=== PATIENT | male | born 1940 | race Caucasian/White ===

== ENCOUNTER → 2019-05-17 09:19 | Outpatient (BNVA) | payer MEDICARE, SELFPAY | PROVIDERS: Family Provider Internal Medicine; PCP Internal Medicine; Visit Provider Internal Medicine Cardiovascular Disease | DX: E78.5 Hyperlipidemia, unspecified (principal); I25.119 Atherosclerotic heart disease of native coronary artery with unspecified angina pectoris; I25.5 Ischemic cardiomyopathy; I34.0 Nonrheumatic mitral (valve) insufficiency | CPT/HCPCS: 80061 ==

== ENCOUNTER → 2019-11-14 08:17 | Outpatient (BNVA) | payer MEDICARE, SELFPAY | PROVIDERS: Family Provider Internal Medicine; PCP Internal Medicine; Visit Provider Internal Medicine Cardiovascular Disease | DX: E78.5 Hyperlipidemia, unspecified (principal); I25.5 Ischemic cardiomyopathy; R06.02 Shortness of breath | CPT/HCPCS: 80048; 80061 ==

== ENCOUNTER 2020-01-04 07:56 | Outpatient (CLI) | payer MEDICARE, SELFPAY ==
--- NOTE | 2020-01-04 08:15 | CT_ITS ---
WS: [id number] CT scan of the head, 01/04/2020 Clinical Data: G44.309 - Post-traumatic headache, unspecified, not intractable Comparison: CT head, 11/19/2013. DLP: 925.[address] scans at [facility] use at least one of these dose optimization techniques: automat ed exposure control; mA and/or kV adjustment per patient size (includes targeted exams where dose is matched to clinical indication); or iterative reconstruction. Findings: The ventricular system is mildly dilated without shift. No recent infarct or hemorrhage is seen. Ther e are no abnormal intracerebral masses. The cerebellum and brainstem are not remarkable. Bony windows of the skull and skull base show no fractures or erosions. The mastoid air cells, data analysis intern al auditory canals, sella turcica, intraorbital contents, and paranasal sinuses are unremarkable. CT/CT head wo con* [id number] Impression: Mild cerebral atrophy.
== END 2020-01-04 07:57 | disposition home or self-care (01) ==
LOC: RADWPI 08:00
PROVIDERS: PCP Internal Medicine; Visit Provider Internal Medicine
DX: G44.309 Post-traumatic headache, unspecified, not intractable (principal); G31.9 Degenerative disease of nervous system, unspecified
CPT/HCPCS: 70450

== ENCOUNTER 2020-02-29 14:41 | Inpatient (IN) | payer MEDICARE, SELFPAY ==
[2020-02-29] VITALS (16 sets, daily range): BP systolic 109–144; BP diastolic 74–99; PULSE 63–130; RESP 16–24; TEMP 36.2; O2SAT 93–97; BMI 25.5
--- NOTE | 2020-02-29 14:46 | XR_ITS ---
WS: [id number] Portable AP upright chest, 02/29/2020 Clinical Data: dyspnea Comparison: PA and lateral chest, 12/22/2016. Findings: There is a small left pleural effusion with minimal atelectasis and/or pneumonia over the s urface of the left diaphragm. Right lung is clear. The heart is enlarged. The pulmonary vascularity i s mildly prominent. The aortic arch and descending aorta show calcification and tortuosity. No pneumo thorax is present. There is a left shoulder prosthesis in position. There is osteoarthritic change of the right shoulder. XR/XR chest 1V portable [id number] Impression: 1. Cardiomegaly and mild pulmonary vascular congestion. 2. Small left pleural effusion with minimal atelectasis and/or pneumonia over t he surface of the left diaphragm.
--- NOTE | 2020-02-29 14:47 | ECG_ITS ---
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 Measurements Intervals [place] Rate: 104 P: [place]: QRS: -65 QRSD: 105 T: 92 QT: 385 QTc: 508 Interpretive Statements ATRIAL FIBRILLATION WITH RAPID VENTRICULAR RESPONSE WITH ABERRANT CONDUCTION OR VENTRICULAR PREMATURE COMPLEXES ANTERIOR MYOCARDIAL INFARCTION , OF INDETERMINATE AGE [40+ ms Q WAVE AND/OR ST/T ABNORMALITY IN V3/V4] INFERIOR MYOCARDIAL INFARCTION , PROBABLY OLD [40+ ms Q WAVE AND/OR ST/T ABNORMALITY IN II/aVF] Diffuse nonspecific T wave changes Compared to ECG 08/19/2015 23:09:34 Aberrant conduction of supraventricular beat(s) now present.Ventricular premature complex(es) now present.Sinus bradycardia no longer present.Left anterior fascicular block no longer present.Myocardial infarct finding still present Electronically Signed On 02-29-2020 20:14:18 SUGAR CANE PLANTING EQUIPMENT OPERATOR by Red Sherman M.D. [id number] f
[2020-02-29 15:06] LABS: Basophils # 0.1 10^3/uL (0.0-0.1); Basophils % 0.6 %; Eosinophils # 0.1 10^3/uL (0.0-0.8); Eosinophils % 1.6 %; Hematocrit 46.8 % (42.0-52.0); Lymphocytes % 23.6 %; Mean Corpuscular HGB Conc 32.1 g/dL (30.0-36.0); Mean Corpuscular Hemoglobin 29.4 pg (28.0-34.0); Mean Corpuscular Volume 91.8 fL (80-94); Mean Platelet Volume 10.8 fL (7.4-10.4); Monocytes # 0.6 10^3/uL (0.2-0.9); Monocytes % 6.5 %; Neutrophils # 5.81 10^3/uL (1.8-7.7); Neutrophils % 67.4 %; Nucleated Red Blood Cells % 0 %; Platelet Count 235 10^3/cmm (130-400); Red Cell Distribution Width 13.8 % (12.1-15.1); White Blood Count 8.6 10^3/uL (4.0-10.0)
--- NOTE | 2020-02-29 15:14 | W.ED.SOB ---
HPI - SOB/Dyspnea General: Chief Complaint: Shortness of Breath/Dyspnea Stated Complaint: dyspnea Time Seen by Provider: 02/29/20 14:43 History of Present Illness: HPI Narrative: 79-year-old male with a history of cardiomyopathy and systolic heart failure brought over to the emergency department by his primary care physician over concerns of shortness of breath and a rapid irregular heart rate. Patient was having significant dyspnea on exertion and overall not doing well. The patient has advanced heart failure. He denies any chest pain but does admit to some shortness of breath. There is no prior history of atrial fibrillation. MD elicited complaint: shortness of breath Pertinent past history: congestive heart failure Onset (ago): day(s) Context: occurred during exertion Timing: constant and progressively worsening Severity: moderate Exacerbating factors: exertion and movement Relieving factors: nothing Associated symptoms: Reports lightheadedness; Deny abdominal pain, chest congestion, chest pain, diaphoresis, dizziness, fever(s), nausea or vomiting Treatment prior to arrival: none Review of Systems General: Reports: 10 or more systems reviewed and unremarkable except in HPI and below Const: Denies: fever(s), chills or diaphoresis ENMT: Denies: throat pain Card: Reports: lightheadedness; Denies: chest pain Resp: Reports: dyspnea; Denies: productive cough, non-productive cough or chest congestion GI: Denies: abdominal pain, nausea or vomiting Skin/Breast: Denies: rash Neuro: Denies: headache(s) or dizziness [facility] ED PFSH: Medical History (Updated 02/29/20 @ 17:48 by Jarvis Merritt DO) 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 Benign essential hypertension with target blood pressure below 140/90 Dyslipidemia (high LDL; low HDL) Essential (primary) hypertension GERD (gastroesophageal reflux disease) Gout Hiatal hernia Hx of angiography Ischemic cardiomyopathy Ischemic cardiomyopathy Mitral valve regurgitation Surgical History History of appendectomy History of carpal tunnel release History of hemorrhoidectomy History of inguinal hernia repair History of left hip replacement History of left shoulder replacement History of prostatectomy S/P PTCA (percutaneous transluminal coronary angioplasty) Family History Other Diabetes Heart disease Social History Smoking and tobacco status: former smoker Alcohol intake: never History of recent travel: No Physical Exam Const: COMMON NORMALS: no acute distress, average body habitus, patient oriented x3, no limitations, healthy appearing, alert and well nourished HENMT: COMMON NORMALS: normocephalic HEAD & SCALP: normocephalic Eye: COMMON NORMALS: Equal, round and reactive pupils present, EOMs intact bilaterally and conjunctivae normal CONJUNCTIVA: Yes conjunctivae normal PUPIL: Yes Equal, round and reactive pupils present Neck/C-Spine: COMMON NORMALS: full ROM, no lymphadenopathy, supple, no meningeal signs, no JVD, Thyroid normal and No carotid bruits THYROID: Thyroid normal Resp: COMMON NORMALS: normal respiratory effort, No retractions, No use of accessory muscles, clear to auscultation bilaterally and percussion normal AUSCULTATION: clear to auscultation bilaterally PERCUSSION: percussion normal Cardio: COMMON NORMALS: no JVD; negative for regular rate and negative for regular rhythm RATE: abnormal rate and tachycardic RHYTHM: abnormal rhythm and abnormal rhythm GI: COMMON NORMALS: Normal to inspection, nondistended, normoactive bowel sounds present, Soft to palpation, non-tender, No hepatosplenomegaly present, no masses and no bruits PALPATION: Yes Soft to palpation and Yes No hepatosplenomegaly present : COMMON NORMALS: Yes no CVA tenderness BLADDER/KIDNEY EXAM: Yes no CVA tenderness Back/Pelvis: COMMON NORMALS: no CVA tenderness Extremity: COMMON NORMALS: normal to inspection, full ROM, capillary refill normal, no joint enlargement, no clubbing, cyanosis or edema, no calf tenderness and no pedal edema Neuro: COMMON NORMALS: patient oriented x3 SENSORIUM/ORIENTATION: Yes alert MENINGEAL SIGNS: Yes no meningeal signs Skin: COMMON NORMALS: no rashes or lesions noted, no wounds, turgor normal, no jaundice, no petechiae and no mottling GENERAL SKIN EXAM: no rashes or lesions noted and turgor normal Course ED course: 79-year-old male with history of heart failure presenting with new onset atrial fibrillation and a markedly elevated BNP and mild elevation of troponin. The patient was given some Lasix and now is breathing better his heart rates has come down and he is doing better but will need to be admitted for further work up and evaluation. Will discuss with hospitalist regarding admission. Dr. Lin accepts patient - cardiac step down bed. Vital Signs: Vital signs: Vital Signs Pulse Rate 91 02/29/20 16:05 Respiratory Rate 20 H 02/29/20 16:05 Blood Pressure 114/82 02/29/20 16:05 Pulse Oximetry 95 02/29/20 16:05 MDM - SOB/Dyspnea MDM Narrative: Medical decision making narrative: 79-year-old male with systolic heart failure and with a rapid irregular heartbeat. Suspect atrial fibrillation with rapid ventricular response will evaluate for acute coronary syndrome, congestive heart failure among others. Routine labs will be obtained I discussed the case with his primary care physician. EKG confirms atrial fibrillation with rapid ventricular response. Nonspecific ST/T wave changes noted with ventricular rate >100. Patient's chest x-ray has changes of congestive heart failure. He was given a dose of Lasix and felt much better. Patient will be admitted for work up. Differential Diagnosis: Shortness of Breath Differential Diagnosis: Likely acute exacerbation of chronic obstructive airways disease, congestive heart failure, community acquired pneumonia, asthma with exacerbation and pulmonary embolism Lab Data: Labs: Lab Results 02/29/20 02/29/20 02/29/20 Range/Units 14:30 14:30 14:30 WBC 8.6 (4.0-10.0) 10^3/ uL RBC 5.10 (4.1-5.3) 10^6/u L Hgb 15.0 (11.7-16.6) g/dL Hct 46.8 (42.0-52.0) % MCV 91.8 (80-94) fL MCH 29.4 (28.0-34.0) pg MCHC 32.1 (30.0-36.0) g/dL RDW 13.8 (12.1-15.1) % Plt Count 235 (130-400) 10^3/c mm MPV 10.8 H (7.4-10.4) fL Neut % (Auto) 67.4 % Lymph % (Auto) 23.6 % Butler % (Auto) 6.5 % Eos % (Auto) 1.6 % Baso % (Auto) 0.6 % Neut # (Auto) 5.81 (1.8-7.7) 10^3/u L Lymph # (Auto) 2.0 (0.8-4.8) 10^3/u L Butler # (Auto) 0.6 (0.2-0.9) 10^3/u L Eos # (Auto) 0.1 (0.0-0.8) 10^3/u L Baso # (Auto) 0.1 (0.0-0.1) 10^3/u L Nucleated RBC % (a uto) 0 % Nucleated RBCs # 0.0 /100WBC Sodium 139 (136-145) mmol/L Potassium 4.1 (3.5-5.1) mmol/L Chloride 103 (98-107) mmol/L Carbon Dioxide 27 (22-29) mmol/L Anion Gap 13.1 (5-19) BUN 16 (8-23) mg/dL Creatinine 1.2 (0.7-1.2) mg/dL GFR Calculation Not Reportable Glucose 138 H (65-115) mg/dL Calculated Osmolal ity 291 (285-295) mOsm/k g Calcium 9.7 (8.5-10.5) mg/dL Magnesium 2.4 H (1.7-2.3) mg/dL Total Bilirubin 0.7 (0.15-1.2) mg/dL AST 46 H (0-40) U/L ALT 43 H (0-41) U/L Alkaline Phosphata se 133 H (40-130) IU/L Troponin T Baselin e 39 H (0-15) ng/L Troponin T 120 Min [place] (0-15) ng/L Delta Troponin T (0-10) ABS# NT-Pro-B Natriuret Pep 8347 H (0-450) pg/mL Total Protein 6.8 (6.6-8.7) g/dL Albumin 4.2 (3.5-5.2) g/dL Globulin 2.6 (1.3-4.6) g/dL 02/29/20 Range/Units 16:30 WBC (4.0-10.0) 10^3/ uL RBC (4.1-5.3) 10^6/u L Hgb (11.7-16.6) g/dL Hct (42.0-52.0) % MCV (80-94) fL MCH (28.0-34.0) pg MCHC (30.0-36.0) g/dL RDW (12.1-15.1) % Plt Count (130-400) 10^3/c mm MPV (7.4-10.4) fL Neut % (Auto) % Lymph % (Auto) % Butler % (Auto) % Eos % (Auto) % Baso % (Auto) % Neut # (Auto) (1.8-7.7) 10^3/u L Lymph # (Auto) (0.8-4.8) 10^3/u L Butler # (Auto) (0.2-0.9) 10^3/u L Eos # (Auto) (0.0-0.8) 10^3/u L Baso # (Auto) (0.0-0.1) 10^3/u L Nucleated RBC % (a uto) % Nucleated RBCs # /100WBC Sodium (136-145) mmol/L Potassium (3.5-5.1) mmol/L Chloride (98-107) mmol/L Carbon Dioxide (22-29) mmol/L Anion Gap (5-19) BUN (8-23) mg/dL Creatinine (0.7-1.2) mg/dL GFR Calculation Glucose (65-115) mg/dL Calculated Osmolal ity (285-295) mOsm/k g Calcium (8.5-10.5) mg/dL Magnesium (1.7-2.3) mg/dL Total Bilirubin (0.15-1.2) mg/dL AST (0-40) U/L ALT (0-41) U/L Alkaline Phosphata se (40-130) IU/L Troponin T Baselin e (0-15) ng/L Troponin T 120 Min [place] 34.84 H (0-15) ng/L Delta Troponin T -4.16 L (0-10) ABS# NT-Pro-B Natriuret Pep (0-450) pg/mL Total Protein (6.6-8.7) g/dL Albumin (3.5-5.2) g/dL Globulin (1.3-4.6) g/dL Discharge Plan Discharge Patient Disposition: Admitted As Inpatient Clinical Impression: Ischemic cardiomyopathy, Elevated troponin, Atrial fibrillation Condition: Stable Coding Level of Care Code ED Balance Clerk for Chg Fwd Exam Comprehensive
[2020-02-29 15:28] LABS: Troponin(5th) Baseline 39 ng/L (0-15)
[2020-02-29 15:35] LABS: Alanine Aminotransferase 43 U/L (0-41); Albumin Level 4.2 g/dL (3.5-5.2); Alkaline Phosphatase 133 IU/L (40-130); Anion Gap 13.1 (5-19); Aspartate Amino Transferase 46 U/L (0-40); Blood Urea Nitrogen 16 mg/dL (8-23); Calcium 9.7 mg/dL (8.5-10.5); Carbon Dioxide 27 mmol/L (22-29); Chloride 103 mmol/L (98-107); Globulin 2.6 g/dL (1.3-4.6); Glucose 138 mg/dL (65-115); Magnesium 2.4 mg/dL (1.7-2.3); NT Pro B Type Natriuretic Pept 8347 pg/mL (0-450); Osmolality Calculated 291 mOsm/kg (285-295); Potassium 4.1 mmol/L (3.5-5.1); Sodium 139 mmol/L (136-145); Total Bilirubin 0.7 mg/dL (0.15-1.2); Total Protein 6.8 g/dL (6.6-8.7)
[2020-02-29] MEDS: FUROsemide 10 mg/mL SDV 4mL 40 MG IVP (17:08)
[2020-02-29] MEDS: enoxaparin 80 mg/0.8 mL Syringe SUBCUT (17:08)
[2020-02-29 17:11] LABS: Troponin 5 2HR 34.84 ng/L (0-15)
[2020-02-29 17:13] LABS: Troponin 5 2HR Delta -4.16 ABS# (0-10)
--- NOTE | 2020-02-29 18:01 | PM.HP ---
Providers/Chief Complaint Admitting Physician: Carmen Lin MD Primary Care Provider: Raymond Redyd MD Chief Complaint: dyspnea, palpitations History of Present Illness Stanislav Wu is a 79 year old male with PMHx noted below presents from PCP office where he had presented due to having noticed shortness of breath with exertions, intermittent palpitations, easy fatigability for the past several days. On evaluation at Dr. Reddy's office this afternoon he was noted to have an irregular heartbeat with elevated heart rate so was advised to seek medical attention in the ER. Dr. Reddy actually brought the patient physically to the ER. He denies having had any chest pain/discomfort, lower extremity swelling, cough, abdominal pain, nausea/vomiting, change in his urination or bowel habits, he is not oxygen dependent at baseline. Work-up so far indicates normal CBC, normal electrolytes and renal function, magnesium of 2.4, BNP elevation at 8347, elevated troponins but no significant delta so far. He does have noted atrial fibrillation on telemetry with heart rates ranging from 120s to 140s. He is not overtly distressed during my encounter in the ER, so far has received a therapeutic dose of Lovenox and 40 mg of IV Lasix. Chest x-ray shows some evidence of fluid overload with noted mild pulmonary vascular congestion and a small left pleural effusion. I have requested initiation of a Cardizem drip due to continued RVR. He will require further management of what appears to be new onset atrial fibrillation with RVR and acute CHF exacerbation. Review of Systems Const: Reports: fatigue; Denies: fever(s), chills or change in appetite Eyes: Denies: change in vision ENMT: Denies: odynophagia Card: Reports: palpitations and irregular heart rhythm; Denies: chest pain, swelling of feet/ankles, lightheadedness, syncope or pre-syncope Resp: Reports: dyspnea; Denies: productive cough or non-productive cough GI: Denies: abdominal pain, nausea, vomiting, hematemesis or hematochezia : Denies: hematuria Musc: Denies: back pain Skin/Breast: Denies: rash Neuro: Denies: numbness in extremities or weakness in extremities Psych: Denies: anxiety Medications/Allergies Home Medications Medication Instructions Recorded Confirmed Last Taken Type nitroglycerin 0.4 mg sublingual 0.4 mg SUBLINGUAL Q5M PRN 03/24/19 02/29/20 Unknown History tablet hydrocodone 5 mg-acetaminophen 325 1 tab PO Q8H PRN 30 Days #30 tab 01/23/20 02/29/20 Unknown Rx mg tablet fentanyl 50 mcg/hr transdermal 1 patch TOPICAL Q72H 30 Days #10 02/20/20 02/29/20 02/29/20 Rx patch each Miralax 17 gm PO DAILY@59902/29/20 02/29/20 02/29/20 History allopurinol 300 mg PO DAILY@59902/29/20 02/29/20 02/29/20 History atorvastatin 80 mg PO DAILY@59902/29/20 02/29/20 02/29/20 History clopidogrel 75 mg PO DAILY@59902/29/20 02/29/20 02/29/20 History ezetimibe 10 mg PO DAILY@0602/29/20 02/29/20 02/29/20 History furosemide 40 mg PO BID@0600,1700 02/29/20 02/29/20 02/29/20 History isosorbide mononitrate 60 mg PO DAILY@0602/29/20 02/29/20 02/29/20 History lisinopril 40 mg PO DAILY@0602/29/20 02/29/20 02/29/20 History meloxicam 15 mg PO DAILY@0602/29/20 02/29/20 02/29/20 History metoprolol tartrate 50 mg PO BID@0600,1700 02/29/20 02/29/20 02/29/20 History nifedipine 30 mg PO DAILY@0602/29/20 02/29/20 02/29/20 History omeprazole 20 mg PO DAILY@0600 02/29/20 02/29/20 02/29/20 History potassium chloride 20 meq PO BID@0600,1700 02/29/20 02/29/20 02/29/20 History Allergies Allergy/AdvReac Type Severity Reaction Status Date / Time No Known Allergies Allergy Verified 02/29/20 13:29 PFSH Acute PFSH: Medical History (Updated 02/29/20 @ 18:52 by Carmen Lin MD) 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 Benign essential hypertension with target blood pressure below 140/90 Dyslipidemia (high LDL; low HDL) Essential (primary) hypertension GERD (gastroesophageal reflux disease) Gout Hiatal hernia Hx of angiography Ischemic cardiomyopathy Mitral valve regurgitation Osteoarthritis Surgical History History of appendectomy History of carpal tunnel release History of hemorrhoidectomy History of inguinal hernia repair History of left hip replacement History of left shoulder replacement History of prostatectomy S/P PTCA (percutaneous transluminal coronary angioplasty) Family History Other Diabetes Heart disease Social History Smoking and tobacco status: former smoker Alcohol intake: never History of recent travel: No Vitals/I&O/Wt Last Vital Signs Pulse 91 02/29/20 16:05 Resp 20 H 02/29/20 16:05 BP 114/82 02/29/20 16:05 Pulse Ox 95 02/29/20 16:05 Weight last 48 hrs Weight 78.471 kg Physical Exam Const: COMMON NORMALS: no acute distress, patient oriented x3 and alert GENERAL APPEARANCE: cooperative and comfortable ORIENTATION/CONSCIOUSNESS: Yes awake OTHER: -looks younger than stated age HENMT: COMMON NORMALS: normocephalic, atraumatic and moist oral mucous membranes HEAD & SCALP: normocephalic and atraumatic GENERAL EAR: hearing grossly impaired Eye: COMMON NORMALS: Equal, round and reactive pupils present, EOMs intact bilaterally and conjunctivae normal CONJUNCTIVA: Yes conjunctivae normal PUPIL: Yes Equal, round and reactive pupils present Neck/C-Spine: COMMON NORMALS: full ROM GENERAL: Yes normal visual inspection and Yes trachea midline Resp: COMMON NORMALS: normal respiratory effort, No retractions, No use of accessory muscles and clear to auscultation bilaterally EFFORT & INSPECTION: Yes able to speak in complete sentences, Yes symmetric chest movement and No tachypneic AUSCULTATION: clear to auscultation bilaterally OTHER: -on RA Cardio: COMMON NORMALS: S1 normal heart sound present, S2 normal heart sound present and No murmurs present (Cardio) RATE: tachycardic RHYTHM: abnormal rhythm irregularly irregular HEART SOUNDS: S1 normal heart sound present and S2 normal heart sound present GI: COMMON NORMALS: Normal to inspection, nondistended, normoactive bowel sounds present, Soft to palpation and non-tender PALPATION: Yes Soft to palpation Extremity: COMMON NORMALS: normal to inspection, full ROM and no clubbing, cyanosis or edema; negative for no pedal edema Neuro: COMMON NORMALS: patient oriented x3, moves all extremities, no focal motor deficits and no sensory deficits noted Psych: COMMON NORMALS: mental status grossly normal, Normal thought process present, cooperative, normal affect and speech normal SPEECH: Yes normal speech THOUGHT PROCESS: Normal thought process present Skin: COMMON NORMALS: no rashes or lesions noted, no jaundice, no petechiae and no mottling GENERAL SKIN EXAM: no rashes or lesions noted Data : 02/29/20 14:30 02/29/20 14:30 A&P Assessment and plan (1) Atrial fibrillation: -appears to be new onset, likely triggered by acute CHF exacerbation -telemetry monitoring -started on Cardizem drip in ED; titrate as needed -monitor vital signs -check TSH, K-4.1 -order repeat Echo, last one was in 2018 showing EF=45%, G3DD, moderate MR, trace to mild AR -[id number] score-5; will need computer terminal operator anticoagulation, for now will cover with therapeutic lovenox Status: Acute Qualifiers: Atrial fibrillation type: persistent (not longstanding) Qualified Code(s): I48.19 - Other persistent atrial fibrillation (2) Acute exacerbation of CHF (congestive heart failure): -IV diuresis with lasix -daily weights, monitor Is & Os -repeat Echo, per cardiac cath, EF=35% (06/2018) -noted elevated BNP (8347), evidence of fluid overload on imaging Status: Acute Qualifiers: Heart failure type: combined systolic and diastolic Qualified Code(s): I50.43 - Acute on chronic combined systolic (congestive) and diastolic (congestive) heart failure (3) Elevated troponin: -likely demand ischemia from acute CHF exacerbation and new onset atrial fibrillation with RVR -has known hx of CAD with prior stenting (x 13); had multivessel angioplasty, subtotal occlusion of the stented segment of proximal intermedius artery, moderate severe diffuse disease of distal LAD, moderate to severe in-stent narrowing of the proximal RCA -resume statin, Plavix, BB, ACEi Status: Acute (4) Essential (primary) hypertension: -monitor vital signs -resume oral antihypertensives Status: Chronic (5) GERD (gastroesophageal reflux disease): -resume PPI Status: Chronic Qualifiers: Esophagitis presence: without esophagitis Qualified Code(s): K21.9 - Gastro-esophageal reflux disease without esophagitis Additional A&P Information -Chronic pain, OA: resume pain meds -Gout; resume allopurinol -Dyslipidemia; resume statin -cardiac diet as tolerated -GI ppx with PPI -DVT ppx not needed as on therapeutic lovenox -Dispo: home -Code status: FULL code -admit to CSU Attestations Medical Necessity Statement*: Stanislav Gastelum Bryce's hospital stay will require greater than 2 midnights for management of acute CHF exacerbation and new onset atrial fibrillation with RVR. Time Spent in Patient Care: Greater than 35 minutes (>than 50% of time spent in counselling and/or direct pt care on unit). Coding Level of Care Code Acute Data Processing Operator for [facility] Fwd Exam Comprehensive Diagnoses Atrial fibrillation I48.19 Atrial fibrillation type: persistent (not longstanding) Acute exacerbation of CHF (congestive heart failure) I50.43 Heart failure type: combined systolic and diastolic Elevated troponin R77.8 Essential (primary) hypertension I10 GERD (gastroesophageal reflux disease) K21.9 Esophagitis presence: without esophagitis
--- NOTE | 2020-02-29 20:47 | ECG_ITS ---
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 Measurements Intervals [place] Rate: 85 P: [place]: QRS: -58 QRSD: 98 T: 93 QT: 390 QTc: 464 Interpretive Statements ATRIAL FIBRILLATION WITH ABERRANT CONDUCTION OR VENTRICULAR PREMATURE COMPLEXES LEFT ANTERIOR FASCICULAR BLOCK [QRS AXIS <= -45, QR IN I, RS IN II] ANTERIOR MYOCARDIAL INFARCTION , OF INDETERMINATE AGE [40+ ms Q WAVE AND/OR ST/T ABNORMALITY IN V3/V4] INFERIOR MYOCARDIAL INFARCTION , PROBABLY OLD [40+ ms Q WAVE AND/OR ST/T ABNORMALITY IN II/aVF] Compared to ECG 02/29/2020 14:45:20 Left anterior fascicular block now present T-wave abnormality no longer present Myocardial infarct finding still present Electronically Signed On 03-01-2020 21:36:36 COST ACCOUNTING CLERK by Florence Suarez M.D. [id number]
[2020-02-29 21:27] LABS: Troponin 5 6HR 37.76 ng/L (0-15)
--- NOTE | 2020-02-29 21:29 | PC.NURSE ---
EKG done at 2126 and shown to ER doctor
[2020-02-29 21:35] LABS: Troponin 5 6HR Delta -1.24 ng/L (0-12)
[2020-03-01] VITALS (66 sets, daily range): BP systolic 99–134; BP diastolic 50–94; PULSE 70–993; RESP 7–31; TEMP 36.2–36.6; O2SAT 87–97
[2020-03-01] MEDS: fentaNYL 50 mcg Patch 1 PATCH TRANSDERMA (00:32)
[2020-03-01] MEDS: atorvastatin 40 mg Tablet 80 MG PO ×2 (00:32→20:34)
--- NOTE | 2020-03-01 00:59 | PC.NURSE ---
NURSE NOTE: MEDICATION RESCHEDULED: PT HAD LOVENOX SCHEDULED TO BE GIVEN WHEN ARRIVED TO UNIT AT 2320 LAST EVENING. HAD JUST HAD LOVENOX 80MG AT 1620. NOTIFIED DR. ROPER TO CONFIRM HE WANTED MEDICATION GIVEN. GAVE ORDER TO RESCHEDULE LOVENOX FOR 0500 AND 1700. MEDICATION SCHEDULED ORDERED.
--- NOTE | 2020-03-01 01:02 | PC.NURSE ---
NURSE NOTE: ADMISSION: PT ARRIVED TO UNIT AT 2320 LAST NIGHT. ALERT AND ORIENTED X4, MOVES ALL EXTREMITIES AND FOLLOWS COMMANDS. UP WITH SBA X1-GAIT STEADY WITH ASSIST. ALL VS AND ASSESSMENTS CHARTED. CARDIZEM GTT RUNNING AT 7.5MG ON ARRIVAL. HEART RATE IRREGULAR /AFIB AT 74 BPM. DENIES CHEST PAIN OR DISCOMFORT. UP TO BR WITH ASSIST. CURRENTLY RESTING WITH EYES CLOSED, RESP EVEN AND NON LABORED. 02 PER RA. WILL CONTINUE TO MONITOR.
[2020-03-01 03:51] LABS: Basophils # 0.1 10^3/uL (0.0-0.1); Basophils % 0.7 %; Eosinophils # 0.2 10^3/uL (0.0-0.8); Eosinophils % 2.4 %; Hematocrit 42.7 % (42.0-52.0); Hemoglobin 13.6 g/dL (11.7-16.6); Lymphocytes # 1.8 10^3/uL (0.8-4.8); Lymphocytes % 21.7 %; Mean Corpuscular HGB Conc 31.9 g/dL (30.0-36.0); Mean Corpuscular Hemoglobin 29.5 pg (28.0-34.0); Mean Corpuscular Volume 92.6 fL (80-94); Monocytes # 0.6 10^3/uL (0.2-0.9); Monocytes % 7.4 %; Neutrophils # 5.52 10^3/uL (1.8-7.7); Neutrophils % 67.6 %; Nucleated Red Blood Cells % 0 %; Platelet Count 188 10^3/cmm (130-400); Red Blood Count 4.61 10^6/uL (4.1-5.3); Red Cell Distribution Width 13.8 % (12.1-15.1); White Blood Count 8.2 10^3/uL (4.0-10.0)
[2020-03-01 04:38] LABS: Alanine Aminotransferase 33 U/L (0-41); Albumin Level 3.6 g/dL (3.5-5.2); Alkaline Phosphatase 116 IU/L (40-130); Anion Gap 9.6 (5-19); Aspartate Amino Transferase 34 U/L (0-40); Blood Urea Nitrogen 15 mg/dL (8-23); Calcium 9.1 mg/dL (8.5-10.5); Carbon Dioxide 30 mmol/L (22-29); Chloride 104 mmol/L (98-107); Globulin 2.7 g/dL (1.3-4.6); Glucose 94 mg/dL (65-115); Magnesium 2.2 mg/dL (1.7-2.3); Osmolality Calculated 291 mOsm/kg (285-295); Potassium 3.6 mmol/L (3.5-5.1); Sodium 140 mmol/L (136-145); Thyroid Stimulating Hormone 3.13 uIU/mL (0.27-4.20); Total Bilirubin 0.8 mg/dL (0.15-1.2); Total Protein 6.3 g/dL (6.6-8.7)
--- NOTE | 2020-03-01 06:55 | PC.NURSE ---
NURSE NOTE: LATE MEDICATIONS: WENT TO GIVE MORNING MEDICATIONS. PATIENT NOT IN PYXIS. CALLED ADMINISTRATION MULTIPLE TIMES/NO ANSWER. PHARMACY CALLED PER CHARGE NURSE ; THEY CONTACTED ED ADMISSIONS/ PROBLEM NOT RESOLVED OF THIS TIME. REPORT GIVEN TO DAVEY GARCIA
--- NOTE | 2020-03-01 07:00 | USCV_ITS ---
Stanislav Wu Age: 79 Gender: M : 1940 Exam Date: 03/01/2020 06:19 Ordering Phys: Carmen Lin MD Technologist: Ty Fernandez Exam Location: [facility] [place] Indication: NEW ONSET AFIB BP: 120 / 93 HR: 82 Rhythm: Atrial fibrillation Technical Quality: Good MEASUREMENTS (Male / Female) Normal Values 2D ECHO LV Diastolic Diameter PLAX 5.4 cm 4.2 - 5.9 / 3.9 - 5.3 cm LV Systolic Diameter PLAX 4.5 cm IVS Diastolic Thickness 1.1 cm 0.6 - 1.0 / 0.6 - 0.9 cm IVS Systolic Thickness 1.6 cm LVPW Diastolic Thickness 1.1 cm 0.6 - 1.0 / 0.6 - 0.9 cm LVPW Systolic Thickness 1.5 cm LVOT Diameter 2.0 cm LV Ejection Fraction 2D Teich 36.8 % LV Ejection Fraction MOD 2C 15.6 % LV Ejection Fraction 2C AL 19.2 % LA Diameter 5.3 cm LA Width 5.9 cm LA Height 5.7 cm RA Width 5.2 cm RA Height 5.5 cm Aorta at Sinotubular Diameter 3.5 cm M-MODE LV Diastolic Diameter MM 5.9 cm 4.2 - 5.9 / 3.9 - 5.3 cm LV Systolic Diameter MM 4.4 cm LV Ejection Fraction MM Teich 50.4 % IVS Diastolic Thickness MM 1.2 cm 0.6 - 1.0 / 0.6 - 0.9 cm IVS Systolic Thickness MM 1.7 cm LVPW Diastolic Thickness MM 1.5 cm 0.6 - 1.0 / 0.6 - 0.9 cm LVPW Systolic Thickness MM 1.9 cm Aortic Annulus Diameter 3.9 cm LA Ao Ratio MM 1.4 MV E Point Septal Separation 1.3 cm DOPPLER AV Peak Velocity 201.0 cm/s LVOT Peak Velocity 103.0 cm/s AV Area Cont Eq vti 1.4 cm squared AV Area Cont Eq pk 1.6 cm squared MV Area PHT 5.0 cm squared MV E' Velocity 56.0 cm/s Mitral E to MV E' Ratio 10.8 Mitral E to LV E' Lateral Ratio 10.8 Mitral E to LV E' Septal Ratio 10.8 TR Peak Velocity 330.0 cm/s TR Peak Gradient 43.6 mmHg TV Peak E Velocity 89.0 cm/s Right Atrial Pressure 3.0 mmHg Pulmonary Artery Systolic Pressu 46.6 mmHg PV Peak Velocity 60.0 cm/s RV Acceleration Time 0.1 s RV Ejection Time 0.3 s RV AcT/ET 0.2 FINDINGS Left Ventricle Mild dilation of left ventricle. LV systolic function is moderately reduced with EF of 35 to 40%. There is severe hypokinesis of anterior and apical peña. Diastolic function is indeterminate because of atrial fibrillation.. Right Ventricle The right ventricle is normal in size and function. Right Atrium Right atrium is dilated. Left Atrium Moderately dilated left atrium Mitral Valve Thickened aortic valve. There is mild to moderate mitral regurgitation. Aortic Valve Aortic valve is calcified. No evidence of aortic stenosis. There is mild aortic regurgitation. Tricuspid Valve Structurally normal tricuspid valve without significant stenosis. There is mild tricuspid regurgitation. RVSP is 45 to 50 mmHg. This is consistent with moderate pulmonary hypertension. Pulmonic Valve Structurally normal pulmonic valve without significant stenosis. There is mild pulmonic regurgitation. Pericardium Normal pericardium without effusion. Aorta Normal ascending aorta dimension. CONCLUSIONS Left ventricle is mildly dilated. LV systolic function is moderately reduced with EF of 35 to 40%. There is severe hypokinesis of anterior and apical peña. Diastolic function is indeterminate because of atrial fibrillation. There is mild to moderate mitral regurgitation. Mild aortic regurgitation is seen. Mild pulmonic regurgitation is present. RVSP is 45 to 50 mmHg consistent with moderate pulmonary hypertension. Compared to prior study from 06/30/2018, LV systolic function is now further decreased to 35 to 40%. Rene Hickey MD (Electronically Signed) Final Date: 02 March 2020 18:20 S
[2020-03-01] MEDS: clopidogrel 75 mg Tablet PO (07:02)
[2020-03-01] MEDS: potassium chloride ER 20 mEq Tablet PO ×2 (07:02→17:10)
[2020-03-01] MEDS: enoxaparin 80 mg/0.8 mL Syringe SUBCUT ×2 (07:02→17:11)
[2020-03-01] MEDS: pantoprazole DR 40 mg Tablet PO (07:02)
[2020-03-01] MEDS: metoprolol tartrate 50 mg Tablet PO ×2 (07:03→17:10)
[2020-03-01] MEDS: polyethylene glycol 3350 Pkt 17 gm PO (08:46)
[2020-03-01] MEDS: NIFEdipine ER (24 hr) 30 mg Tablet PO (08:46)
[2020-03-01] MEDS: allopurinol 300 mg Tablet PO (08:47)
[2020-03-01] MEDS: isosorbide mononitrate ER 60 mg Tablet PO (08:47)
[2020-03-01] MEDS: lisinopril 20 mg Tablet 40 MG PO (08:48)
[2020-03-01] MEDS: FUROsemide 10 mg/mL SDV 4mL 40 MG IVP ×2 (08:49→17:12)
--- NOTE | 2020-03-01 10:27 | PM.PN ---
Subjective Subjective: Interval history: Patient resting quietly in bed, no apparent distress, very pleasant, no complaints, no acute overnight events reported. On 5 mg/hr of cardizem, HR better controlled but rhythm remains irregular. Medications: Reviewed: Yes Medication Review Details: Active Medications Generic Name Dose Route Start Last Admin Trade Name Freq PRN Reason Stop Dose Admin Acetaminophen 650 mg 03/01/20 07:39 Acetaminophen 32 5 Mg Tablet PO Q6H PRN MILD PAIN Hydrocodone Bitart /Acetaminophen 1 tab 03/01/20 07:39 Hydrocodone-Acet aminophen 5-325 Mg Tablet PO Q8H PRN moderate to sever e pain Allopurinol 300 mg 03/01/20 09:00 03/01/20 08:47 Allopurinol 300 Mg Tablet PO 300 mg DAILY [facility] Administration Atorvastatin Calci um 80 mg 03/01/20 21:00 Atorvastatin 40 Mg Tablet PO BEDTIME TAYLOR Clopidogrel Bisulf ate 75 mg 03/02/20 06:00 Clopidogrel 75 M g Tablet PO DAILY@0600 T[facility] Diltiazem HCl 30 mg 03/01/20 10:30 Diltiazem 30 Mg Tablet PO Q6H TAYLOR Enoxaparin Sodium 80 mg 03/01/20 18:00 Enoxaparin 80 Mg /0.8 Ml Syringe SUBCUT Q12H TAYLOR Fentanyl 1 patch 02/29/20 23:43 03/01/20 00:32 Fentanyl 50 Mcg Patch TRANSDERMA 1 patch Q72H TAYLOR Administration Furosemide 40 mg 03/01/20 09:00 03/01/20 08:49 Furosemide 10 Mg /Ml Sdv 4ml IVP 40 mg BID TAYLOR Administration Diltiazem HCl 125 mg/ Sodium 125 mls @ 10 mls/ hr 02/29/20 18:00 03/01/20 08:59 Chloride IV 5 mg/hr .[id number] TAYLOR 5 mls/hr Infusion 10 MG/HR Isosorbide Mononit rate 60 mg 03/01/20 09:00 03/01/20 08:47 Isosorbide [place] itrate Er 60 Mg Ta blet PO 60 mg DAILY T[facility]LOR Administration Lisinopril 40 mg 03/01/20 09:00 03/01/20 08:48 Lisinopril 20 Mg Tablet PO 40 mg DAILY T[facility]LOR Administration Metoprolol Tartrat e 50 mg 03/01/20 17:00 Metoprolol Tartr ate 50 Mg Tablet PO BID@0600,1700 [facility] Nifedipine 30 mg 03/01/20 09:00 03/01/20 08:46 Nifedipine Er (2 4 Hr) 30 Mg Tablet PO 30 mg DAILY [facility] Administration Nitroglycerin 0.4 mg 03/01/20 07:39 Nitroglycerin 0. 4 Mg Sublingual Ta blet SUBLINGUAL Q5M PRN CHEST PAIN Ondansetron HCl 4 mg 03/01/20 07:40 Ondansetron 2 Mg /Ml Sdv 2 Ml IVP Q6H PRN NAUSEA AND VOMITI NG Pantoprazole Sodiu m 40 mg 03/02/20 06:[address] 40 Mg Tablet PO DAILY@0600 [facility] Polyethylene Glyco l 17 gm 03/01/20 09:00 03/01/20 08:46 Polyethylene Gly col 3350 Pkt 17 Gm PO 17 gm DAILY [facility] Administration Potassium Chloride 20 meq 03/01/20 17:00 Potassium Chlori de Er 20 Meq Table t PO BID@0600,1700 [facility] No Known Allergies Allergy (Verified 02/29/20 13:29) Vitals/I&O/Wt Last Vital Signs Temp 97.7 F 03/01/20 07:05 Pulse 85 03/01/20 07:26 Resp 18 03/01/20 07:05 BP 134/87 03/01/20 07:05 Pulse Ox 96 03/01/20 07:05 02/29/20 03/01/20 03/01/20 22:59 06:59 14:59 Intake Total 39.833 / 39.833 54.5 / 94.333 255.500 / 255.500 Output Total 300 / 300 300 / 300 Balance 39.833 / 39.833 -245.5 / -205.667 -44.500 / -44.500 Weight last 48 hrs Weight 70.579 kg Weight 78.471 kg Physical Exam Const: COMMON NORMALS: no acute distress, patient oriented x3 and alert GENERAL APPEARANCE: cooperative and comfortable ORIENTATION/CONSCIOUSNESS: Yes awake OTHER: -looks younger than stated age HENMT: COMMON NORMALS: normocephalic, atraumatic and moist oral mucous membranes HEAD & SCALP: normocephalic and atraumatic GENERAL EAR: hearing grossly impaired Eye: COMMON NORMALS: Equal, round and reactive pupils present, EOMs intact bilaterally and conjunctivae normal CONJUNCTIVA: Yes conjunctivae normal PUPIL: Yes Equal, round and reactive pupils present Neck/C-Spine: COMMON NORMALS: full ROM GENERAL: Yes normal visual inspection and Yes trachea midline Resp: COMMON NORMALS: normal respiratory effort, No retractions, No use of accessory muscles and clear to auscultation bilaterally EFFORT & INSPECTION: Yes able to speak in complete sentences, Yes symmetric chest movement and No tachypneic AUSCULTATION: clear to auscultation bilaterally OTHER: -on RA Cardio: COMMON NORMALS: regular rate, S1 normal heart sound present, S2 normal heart sound present and No murmurs present (Cardio) RATE: regular rate RHYTHM: abnormal rhythm irregularly irregular HEART SOUNDS: S1 normal heart sound present and S2 normal heart sound present OTHER: -on cardizem @ 5 mg/hr GI: COMMON NORMALS: Normal to inspection, nondistended, normoactive bowel sounds present, Soft to palpation and non-tender PALPATION: Yes Soft to palpation Extremity: COMMON NORMALS: normal to inspection, full ROM and no clubbing, cyanosis or edema; negative for no pedal edema Neuro: COMMON NORMALS: patient oriented x3, moves all extremities, no focal motor deficits and no sensory deficits noted SENSORIUM/ORIENTATION: Yes alert Psych: COMMON NORMALS: mental status grossly normal, Normal thought process present, cooperative, normal affect and speech normal SPEECH: Yes normal speech THOUGHT PROCESS: Normal thought process present Skin: COMMON NORMALS: no rashes or lesions noted, no jaundice, no petechiae and no mottling GENERAL SKIN EXAM: no rashes or lesions noted Data : 03/01/20 03:21 03/01/20 03:21 A&P Assessment and plan (1) Atrial fibrillation: -appears to be new onset, likely triggered by acute CHF exacerbation -telemetry monitoring -on Cardizem drip in ED; titrate as needed; start on oral cardizem -VSS; continue to monitor -TSH wnl, K-3.6 -order repeat Echo, last one was in 2019 showing EF=45%, G3DD, moderate MR, trace to mild AR -[id number] score-5; will need terminal gauger supervisor anticoagulation, for now will cover with therapeutic lovenox Status: Acute Qualifiers: Atrial fibrillation type: persistent (not longstanding) Qualified Code(s): I48.19 - Other persistent atrial fibrillation (2) Acute exacerbation of CHF (congestive heart failure): -IV diuresis with lasix -daily weights, monitor Is & Os -repeat Echo, per cardiac cath, EF=35% (06/2018) -noted elevated BNP (8347), evidence of fluid overload on imaging Status: Acute Qualifiers: Heart failure type: combined systolic and diastolic Qualified Code(s): I50.43 - Acute on chronic combined systolic (congestive) and diastolic (congestive) heart failure (3) Elevated troponin: -likely demand ischemia from acute CHF exacerbation and new onset atrial fibrillation with RVR -has known hx of CAD with prior stenting (x 13); had multivessel angioplasty, subtotal occlusion of the stented segment of proximal intermedius artery, moderate severe diffuse disease of distal LAD, moderate to severe in-stent narrowing of the proximal RCA -continue statin, Plavix, BB, ACEi Status: Acute (4) Essential (primary) hypertension: -continue to monitor vital signs -continue oral antihypertensives Status: Chronic (5) GERD (gastroesophageal reflux disease): -continue PPI Status: Chronic Qualifiers: Esophagitis presence: without esophagitis Qualified Code(s): K21.9 - Gastro-esophageal reflux disease without esophagitis Additional A&P Information -Chronic pain, OA: continue pain meds -Gout; continue allopurinol -Dyslipidemia; continue statin -cardiac diet as tolerated -GI ppx with PPI -DVT ppx not needed as on therapeutic lovenox -Dispo: home -Code status: FULL code Attestations Medical Necessity Statement*: Patient requires hospitalization for continued rate control, IV diuresis. Time Spent in Patient Care: 16 - 35 minutes (>than 50% of time spent in counselling and/or direct pt care on unit). Coding Level of Care Code Acute Corporation Officer for Chg Fwd Exam Comprehensive Diagnoses Atrial fibrillation I48.19 Atrial fibrillation type: persistent (not longstanding) Acute exacerbation of CHF (congestive heart failure) I50.43 Heart failure type: combined systolic and diastolic Elevated troponin R77.8 Essential (primary) hypertension I10 GERD (gastroesophageal reflux disease) K21.9 Esophagitis presence: without esophagitis
--- NOTE | 2020-03-01 11:05 | PC.CHAP ---
Pastoral Care Encounter/Spiritual Assessment Type of Contact [] Declined group leader wafer polishing visit [] Patient/Family/Request visit [] Outpatient visit [] Follow-up visit [] Physician referral [] Code/Alert [x] Routine visit [] Staff referral [] Actively dying [] Patient sleeping [] Family support [] [] Out of room [] Palliative care [] [x] Receiving care in room [] Pre-surgical visit [] Trauma [] Long length of stay [] ICU visit [] Other: Relational/Emotional Strength [x] Patient feels connected with others/family/visitors/staff [] Distress [] Loneliness/isolation [] Abandonment Spirituality of Patient [x] Person of Veronica [] Attends Advent of their Veronica [x] Believes in Prayer [] Reads Bible or Rastafari materials [] There are Spiritual issues to be addressed Beam Racker Interventions [x] Prayer [x] Active listening [x] Non-anxious presence [x] Spiritual/emotional support [] Crisis/trauma care [x] Spiritual counseling [] Bereavement support [] Provided bereavement packet [] Provided Bible/devotional materials [] Provided toy/stuffed animal, coloring book to patient or family member [] Provided Communion [] Anointing/[place] [] Salvation [x] Completed spiritual assessment [] Other: Impact on Illness or Injury [] Angry [] Fearful [x] Anxious [] Often cries [] Exhaustion [] Unable to work [] Unable to attend lutheran [] Unable to walk/stand [] Unable to read [] Unable to drive [] Unable to eat/drink [] Unable to sleep [] Unable to be with family [] Patient intubated [] Other: Summary he doesn't nknow about tests, he has not seen the dotor has a good attitude Time spent with patient 10 mins
[2020-03-01] MEDS: dilTIAZem 30 mg Tablet PO ×3 (11:13→22:39)
[2020-03-02] VITALS (10 sets, daily range): BP systolic 105–122; BP diastolic 70–95; PULSE 74–98; RESP 12–20; TEMP 36.3–36.9; O2SAT 92–95
[2020-03-02] MEDS: dilTIAZem 30 mg Tablet PO ×3 (04:51→16:26)
[2020-03-02] MEDS: pantoprazole DR 40 mg Tablet PO (05:54)
[2020-03-02] MEDS: enoxaparin 80 mg/0.8 mL Syringe SUBCUT (05:54)
[2020-03-02] MEDS: metoprolol tartrate 50 mg Tablet PO ×2 (05:54→16:26)
[2020-03-02] MEDS: clopidogrel 75 mg Tablet PO (05:54)
[2020-03-02] MEDS: potassium chloride ER 20 mEq Tablet PO ×2 (07:41→16:26)
--- NOTE | 2020-03-02 08:21 | PM.PN ---
Subjective Subjective: Interval history: Had 375 mL urine output overnight, Echo report pending, hemodynamically stable, HR controlled, weaned off cardizem drip. No complaints, resting quietly in bed. Medications: Reviewed: Yes Medication Review Details: Active Medications Generic Name Dose Route Start Last Admin Trade Name Freq PRN Reason Stop Dose Admin Acetaminophen 650 mg 03/01/20 07:39 Acetaminophen 32 5 Mg Tablet PO Q6H PRN MILD PAIN Hydrocodone Bitart /Acetaminophen 1 tab 03/01/20 07:39 Hydrocodone-Acet aminophen 5-325 Mg Tablet PO Q8H PRN moderate to sever e pain Allopurinol 300 mg 03/01/20 09:00 03/01/20 08:47 Allopurinol 300 Mg Tablet PO 300 mg DAILY [facility] Administration Atorvastatin Calci um 80 mg 03/01/20 21:00 03/01/20 20:34 Atorvastatin 40 Mg Tablet PO 80 mg BEDTIME [facility] Administration Clopidogrel Bisulf ate 75 mg 03/02/20 06:00 03/02/20 05:54 Clopidogrel 75 M g Tablet PO 75 mg DAILY@0600 [facility] Administration Diltiazem HCl 30 mg 03/01/20 10:30 03/02/20 04:51 Diltiazem 30 Mg Tablet PO 30 mg Q6H [facility] Administration Enoxaparin Sodium 80 mg 03/01/20 18:00 03/02/20 05:54 Enoxaparin 80 Mg /0.8 Ml Syringe SUBCUT 80 mg Q12H [facility] Administration Fentanyl 1 patch 02/29/20 23:43 03/01/20 00:32 Fentanyl 50 Mcg Patch TRANSDERMA 1 patch Q72H [facility] Administration Furosemide 40 mg 03/01/20 09:00 03/01/20 17:12 Furosemide 10 Mg /Ml Sdv 4ml IVP 40 mg BID [facility] Administration Isosorbide Mononit rate 60 mg 03/01/20 09:00 03/01/20 08:47 Isosorbide [place] itrate Er 60 Mg Ta blet PO 60 mg DAILY [facility] Administration Lisinopril 40 mg 03/01/20 09:00 03/01/20 08:48 Lisinopril 20 Mg Tablet PO 40 mg DAILY [facility] Administration Metoprolol Tartrat e 50 mg 03/01/20 17:00 03/02/20 05:54 Metoprolol Tartr ate 50 Mg Tablet PO 50 mg BID@0600,1700 [facility] Administration Nifedipine 30 mg 03/01/20 09:00 03/01/20 08:46 Nifedipine Er (2 4 Hr) 30 Mg Tablet PO 30 mg DAILY [facility] Administration Nitroglycerin 0.4 mg 03/01/20 07:39 Nitroglycerin 0. 4 Mg Sublingual Ta blet SUBLINGUAL Q5M PRN CHEST PAIN Ondansetron HCl 4 mg 03/01/20 07:40 Ondansetron 2 Mg /Ml Sdv 2 Ml IVP Q6H PRN NAUSEA AND VOMITI NG Pantoprazole Sodiu m 40 mg 03/02/20 06:00 03/02/20 05:[address] 40 Mg Tablet PO 40 mg DAILY@0600 [facility] Administration Polyethylene Glyco l 17 gm 03/01/20 09:00 03/01/20 08:46 Polyethylene Gly col 3350 Pkt 17 Gm PO 17 gm DAILY [facility] Administration Potassium Chloride 20 meq 03/01/20 17:00 03/02/20 07:41 Potassium Chlori de Er 20 Meq Table t PO 20 meq BID@0600,1700 [facility] Administration No Known Allergies Allergy (Verified 02/29/20 13:29) Vitals/I&O/Wt Last Vital Signs Temp 98.4 F 03/02/20 07:54 Pulse 88 03/02/20 07:54 Resp 19 H 03/02/20 07:54 BP 122/91 03/02/20 07:54 Pulse Ox 95 03/02/20 07:54 03/01/20 03/02/20 03/02/20 22:59 06:59 14:59 Intake Total 0 / 626.833 480 / 480 Output Total 450 / 1000 375 / 1375 Balance -450 / -373.167 -375 / -748.167 480 / 480 Weight last 48 hrs Weight 70.352 kg Weight 70.579 kg Weight 78.471 kg Physical Exam Const: COMMON NORMALS: no acute distress, patient oriented x3 and alert GENERAL APPEARANCE: cooperative and comfortable ORIENTATION/CONSCIOUSNESS: Yes awake OTHER: -looks younger than stated age HENMT: COMMON NORMALS: normocephalic, atraumatic and moist oral mucous membranes HEAD & SCALP: normocephalic and atraumatic GENERAL EAR: hearing grossly impaired Eye: COMMON NORMALS: Equal, round and reactive pupils present, EOMs intact bilaterally and conjunctivae normal CONJUNCTIVA: Yes conjunctivae normal PUPIL: Yes Equal, round and reactive pupils present Neck/C-Spine: COMMON NORMALS: full ROM GENERAL: Yes normal visual inspection and Yes trachea midline Resp: COMMON NORMALS: normal respiratory effort, No retractions, No use of accessory muscles and clear to auscultation bilaterally EFFORT & INSPECTION: Yes able to speak in complete sentences, Yes symmetric chest movement and No tachypneic AUSCULTATION: clear to auscultation bilaterally OTHER: -on RA Cardio: COMMON NORMALS: regular rate, S1 normal heart sound present, S2 normal heart sound present and No murmurs present (Cardio) RATE: regular rate RHYTHM: abnormal rhythm irregularly irregular HEART SOUNDS: S1 normal heart sound present and S2 normal heart sound present GI: COMMON NORMALS: Normal to inspection, nondistended, normoactive bowel sounds present, Soft to palpation and non-tender PALPATION: Yes Soft to palpation Extremity: COMMON NORMALS: normal to inspection, full ROM and no clubbing, cyanosis or edema; negative for no pedal edema Neuro: COMMON NORMALS: patient oriented x3, moves all extremities, no focal motor deficits and no sensory deficits noted SENSORIUM/ORIENTATION: Yes alert Psych: COMMON NORMALS: mental status grossly normal, Normal thought process present, cooperative, normal affect and speech normal SPEECH: Yes normal speech THOUGHT PROCESS: Normal thought process present Skin: COMMON NORMALS: no rashes or lesions noted, no jaundice, no petechiae and no mottling GENERAL SKIN EXAM: no rashes or lesions noted Data : 03/01/20 03:21 03/01/20 03:21 A&P Assessment and plan (1) Atrial fibrillation: -appears to be new onset, likely triggered by acute CHF exacerbation -telemetry monitoring -off Cardizem drip, continue oral cardizem -VSS; continue to monitor -TSH wnl, K-3.6 -repeat Echo: EF=35-40%, severe hypokinesis of anterior and apical peña, mild to moderate MR, mild AR, moderate pulmonary HTN, mild TR -[id number] score-5; will need customer experience consultant anticoagulation, switch to Eliquis Status: Acute Qualifiers: Atrial fibrillation type: persistent (not longstanding) Qualified Code(s): I48.19 - Other persistent atrial fibrillation (2) Acute exacerbation of CHF (congestive heart failure): -IV diuresis with lasix; if better compensated, switch to oral diuretics -daily weights, monitor Is & Os -repeat Echo as noeted above, per cardiac cath, EF=35% (06/2018) -noted elevated BNP (8347), evidence of fluid overload on imaging Status: Acute Qualifiers: Heart failure type: combined systolic and diastolic Qualified Code(s): I50.43 - Acute on chronic combined systolic (congestive) and diastolic (congestive) heart failure (3) Elevated troponin: -likely demand ischemia from acute CHF exacerbation and new onset atrial fibrillation with RVR -has known hx of CAD with prior stenting (x 13); had multivessel angioplasty, subtotal occlusion of the stented segment of proximal intermedius artery, moderate severe diffuse disease of distal LAD, moderate to severe in-stent narrowing of the proximal RCA -continue statin, Plavix, BB, ACEi Status: Acute (4) Essential (primary) hypertension: -continue to monitor vital signs -continue oral antihypertensives Status: Chronic (5) GERD (gastroesophageal reflux disease): -continue PPI Status: Chronic Qualifiers: Esophagitis presence: without esophagitis Qualified Code(s): K21.9 - Gastro-esophageal reflux disease without esophagitis Additional A&P Information -Chronic pain, OA: continue pain meds -Gout; continue allopurinol -Dyslipidemia; continue statin -cardiac diet as tolerated -GI ppx with PPI -DVT ppx not needed as on therapeutic lovenox -Dispo: home -Code status: FULL code -anticipate d/c tomorrow if continued stability/improvement Attestations Medical Necessity Statement*: Patient requires hospitalization for continued diuresis, telemetry monitoring, optimization of medication. Time Spent in Patient Care: 16 - 35 minutes (>than 50% of time spent in counselling and/or direct pt care on unit). Coding Level of Care Code Acute Functional Mental Disability Teacher for Chg Fwd Exam Comprehensive Diagnoses Atrial fibrillation I48.19 Atrial fibrillation type: persistent (not longstanding) Acute exacerbation of CHF (congestive heart failure) I50.43 Heart failure type: combined systolic and diastolic Elevated troponin R77.8 Essential (primary) hypertension I10 GERD (gastroesophageal reflux disease) K21.9 Esophagitis presence: without esophagitis
[2020-03-02] MEDS: NIFEdipine ER (24 hr) 30 mg Tablet PO (09:11)
[2020-03-02] MEDS: lisinopril 20 mg Tablet 40 MG PO (09:11)
[2020-03-02] MEDS: isosorbide mononitrate ER 60 mg Tablet PO (09:11)
[2020-03-02] MEDS: apixaban 5 mg Tablet PO ×2 (09:12→17:04)
[2020-03-02] MEDS: allopurinol 300 mg Tablet PO (09:13)
[2020-03-02] MEDS: FUROsemide 10 mg/mL SDV 4mL 40 MG IVP (09:13)
[2020-03-02] MEDS: polyethylene glycol 3350 Pkt 17 gm PO (09:15)
[2020-03-02] MEDS: dilTIAZem 60 mg Tablet PO (21:10)
[2020-03-02] MEDS: atorvastatin 40 mg Tablet 80 MG PO (21:10)
[2020-03-03] VITALS: BP 109/75; PULSE 80; RESP 14; TEMP 36.5; O2SAT 94
[2020-03-03 04:00] VITALS: BP 127/88; PULSE 93; RESP 18; TEMP 36.5; O2SAT 94
[2020-03-03] MEDS: pantoprazole DR 40 mg Tablet PO (05:14)
[2020-03-03] MEDS: metoprolol tartrate 50 mg Tablet PO (05:14)
[2020-03-03] MEDS: clopidogrel 75 mg Tablet PO (05:14)
[2020-03-03] MEDS: potassium chloride ER 20 mEq Tablet PO (05:14)
[2020-03-03 05:44] VITALS: PULSE 95
[2020-03-03 06:00] VITALS: BMI 23.2
[2020-03-03 07:10] VITALS: BP 114/86; PULSE 99; RESP 15; TEMP 36.6; O2SAT 94
--- NOTE | 2020-03-03 09:00 | P.DS_ITS ---
Discharge Providers Date of Admission: 02/29/20 23:42 Date of Discharge: March 03, 2020 Attending Provider at Admission: Carmen Lin MD Attending Provider at Discharge: Carmen Lin MD Consults: None Primary Care Provider: Raymond Reddy MD Diagnoses at Discharge Discharge Diagnosis (1) Atrial fibrillation: Status: Acute Permanent problem details: -appears to be new onset, likely triggered by acute CHF exacerbation -telemetry monitoring -continue oral cardizem -VSS; continue to monitor -TSH wnl, K-3.6 -repeat Echo: EF=35-40%, severe hypokinesis of anterior and apical peña, mild to moderate MR, mild AR, moderate pulmonary HTN, mild TR -[id number] score-5; will need terminal superintendent anticoagulation, on Eliquis Qualifiers: Atrial fibrillation type: persistent (not longstanding) Qualified Code(s): I48.19 - Other persistent atrial fibrillation (2) Acute exacerbation of CHF (congestive heart failure): Status: Acute Permanent problem details: -clinically compensated, continue oral diuretics -daily weights, monitor Is & Os -repeat Echo as noted above, per cardiac cath, EF=35% (06/2018) -noted elevated BNP (8347), evidence of fluid overload on imaging Qualifiers: Heart failure type: combined systolic and diastolic Qualified Code(s): I50.43 - Acute on chronic combined systolic (congestive) and diastolic (congestive) heart failure (3) Elevated troponin: Status: Acute Permanent problem details: -likely demand ischemia from acute CHF exacerbation and new onset atrial fibrillation with RVR -has known hx of CAD with prior stenting (x 13); had multivessel angioplasty, subtotal occlusion of the stented segment of proximal intermedius artery, moderate severe diffuse disease of distal LAD, moderate to severe in-stent narrowing of the proximal RCA -continue statin, Plavix, BB, ACEi (4) Essential (primary) hypertension: Status: Chronic (5) GERD (gastroesophageal reflux disease): Status: Chronic Qualifiers: Esophagitis presence: without esophagitis Qualified Code(s): K21.9 - Gastro-esophageal reflux disease without esophagitis Other Information Additional DC diagnoses/information: -Chronic pain, OA: continue pain meds -Gout; continue allopurinol -Dyslipidemia; continue statin Reason for Visit Reason for Visit: dyspnea, palpitations Hospital Course Hospital Course Patient was admitted to the cardiac stepdown unit after having been found to have new onset A. fib with RVR. He had initially presented to his primary care physician's office with complaints of shortness of breath was found to have rapid heartbeat. He was started on Cardizem drip while in the ER then transitioned to oral Cardizem. A. fib was likely triggered by mild acute CHF e xacerbation so he was also diuresed with IV Lasix. He is currently clinically compensated and has been switched to oral Lasix. Due to [id number] score of 5 he has been on anticoagulation and will continue Eliquis on discharge. Repeat echo was done with no noted changes in his ejection fraction of 35 to 40%. His primary care provider Dr. Reddy was updated accordingly. Patient will be discharged home today with instructions to follow-up with his primary care physician within 1 week. He is to seek medical attention immediately should any of his symptoms recur. He has been hemodynamically stable, afebrile and on room air. Physical Exam Const: COMMON NORMALS: no acute distress, patient oriented x3 and alert GENERAL APPEARANCE: cooperative and comfortable ORIENTATION/CONSCIOUSNESS: Yes awake OTHER: -looks younger than stated age HENMT: COMMON NORMALS: normocephalic, atraumatic and moist oral mucous membranes HEAD & SCALP: normocephalic and atraumatic GENERAL EAR: hearing grossly impaired Eye: COMMON NORMALS: Equal, round and reactive pupils present, EOMs intact bilaterally and conjunctivae normal CONJUNCTIVA: Yes conjunctivae normal PUPIL: Yes Equal, round and reactive pupils present Neck/C-Spine: COMMON NORMALS: full ROM GENERAL: Yes normal visual inspection and Yes trachea midline Resp: COMMON NORMALS: normal respiratory effort, No retractions, No use of accessory muscles and clear to auscultation bilaterally EFFORT & INSPECTION: Yes able to speak in complete sentences, Yes symmetric chest movement and No tachypneic AUSCULTATION: clear to auscultation bilaterally OTHER: -on RA Cardio: COMMON NORMALS: regular rate, S1 normal heart sound present, S2 normal heart sound present and No murmurs present (Cardio) RATE: regular rate RHYTHM: abnormal rhythm irregularly irregular HEART SOUNDS: S1 normal heart sound present and S2 normal heart sound present GI: COMMON NORMALS: Normal to inspection, nondistended, normoactive bowel sounds present, Soft to palpation and non-tender PALPATION: Yes Soft to palpation Extremity: COMMON NORMALS: normal to inspection, full ROM and no clubbing, cyanosis or edema; negative for no pedal edema Neuro: COMMON NORMALS: patient oriented x3, moves all extremities, no focal motor deficits and no sensory deficits noted SENSORIUM/ORIENTATION: Yes alert Psych: COMMON NORMALS: mental status grossly normal, Normal thought process present, cooperative, normal affect and speech normal SPEECH: Yes normal speech THOUGHT PROCESS: Normal thought process present Skin: COMMON NORMALS: no rashes or lesions noted, no jaundice, no petechiae and no mottling GENERAL SKIN EXAM: no rashes or lesions noted Discharge Data Data Completed and Pending: Completed Studies During Hospitalization Category Date Time Status XR chest 1V estefanía ble [id number] Urgent Exams 02/29/20 14:46 Completed CV echo complete* [id number] Routine Ultrasound 03/01/20 07:00 Completed Vitals: Last Vital Signs Temp 97.9 F 03/03/20 07:10 Pulse 99 03/03/20 07:10 Resp 15 03/03/20 07:10 BP 114/86 03/03/20 07:10 Pulse Ox 94 03/03/20 07:10 Discharge Plan Discharge Patient Disposition: Home Condition: Stable Prescriptions: New Eliquis 5 mg Tablet 5 mg PO BID Qty: 60 RF: 0 diltiazem HCl 120 mg capsule,extended release 12 hr 120 mg PO BID 30 Days Qty: 60 RF: 0 Continued nitroglycerin [Nitrostat] 0.4 mg tablet, sublingual 0.4 mg SUBLINGUAL Q5M PRN (Reason: CHEST PAINS) RF: 0 hydrocodone-acetaminophen 5-325 mg tablet 1 tab PO Q8H PRN (Reason: pain) 30 Days Qty: 30 RF: 0 fentanyl 50 mcg/hr patch 72 hour 1 patch topical Q72H 30 Days Qty: 10 RF: 0 atorvastatin 80 mg tablet 80 mg PO DAILY@0600 RF: 0 meloxicam 15 mg tablet 15 mg PO DAILY@0600 RF: 0 nifedipine 30 mg tablet extended release 30 mg PO DAILY@0600 RF: 0 clopidogrel 75 mg tablet 75 mg PO DAILY@0600 RF: 0 isosorbide mononitrate 60 mg tablet extended release 24 hr 60 mg PO DAILY@0600 RF: 0 metoprolol tartrate 50 mg tablet 50 mg PO BID@0600,1700 RF: 0 omeprazole 20 mg capsule,delayed release(DR/EC) 20 mg PO DAILY@0600 RF: 0 allopurinol 300 mg tablet 300 mg PO DAILY@0600 RF: 0 Miralax 17 gram/dose powder 17 gm PO DAILY@0600 RF: 0 lisinopril 40 mg tablet 40 mg PO DAILY@0600 RF: 0 ezetimibe 10 mg tablet 10 mg PO DAILY@0600 RF: 0 potassium chloride 20 mEq tablet extended release 20 meq PO BID@0600,1700 RF: 0 Changed furosemide 40 mg tablet 40 mg PO BID@0600,1700 Qty: 60 RF: 0 Discharge Orders: Discharge Order (Routine); Ordered 03/03/20 Ordered By: Carmen Lin Referrals: Raymond Reddy MD [Primary Care Provider] - 4-7 days (Dr. Reddy's office will contact you to schedule an follow-up appointment in 4 to 7 days. If you haven't heard from them by Thursday afternoon. Please call ) Discharge Diet: Cardiac Discharge Activity: Increase activity as tolerated Patient Instructions: Diltiazem (By mouth), Apixaban (By mouth), Atrial Fibrillation (DC), CHF Stoplight Discharge Attestations Time Spent in Discharge Care*: greater than 30 min Specific Discharge Activities: educating patient, discussing with case management director/social workers/dc planners, documenting/other paperwork and evaluating patient/reviewing data Status at Discharge: Cognitive status at discharge: cognitively intact , Behavioral status at discharge: cooperative and independent in ADL's , Functional status at discharge: independent ambulation Overall status at discharge: patient is progressing back to baseline Quality Metrics Clinical Quality Measures During this hospital stay, did patient experience: None Coding Level of Care Code Acute Tool Trouble Shooter for g Fwd Exam Comprehensive Diagnoses Atrial fibrillation I48.19 Atrial fibrillation type: persistent (not longstanding) Acute exacerbation of CHF (congestive heart failure) I50.43 Heart failure type: combined systolic and diastolic Elevated troponin R77.8 Essential (primary) hypertension I10 GERD (gastroesophageal reflux disease) K21.9 Esophagitis presence: without esophagitis
[2020-03-03] MEDS: allopurinol 300 mg Tablet PO (09:15)
[2020-03-03] MEDS: apixaban 5 mg Tablet PO (09:15)
[2020-03-03] MEDS: NIFEdipine ER (24 hr) 30 mg Tablet PO (09:15)
[2020-03-03] MEDS: isosorbide mononitrate ER 60 mg Tablet PO (09:15)
[2020-03-03] MEDS: dilTIAZem 60 mg Tablet PO (09:15)
[2020-03-03] MEDS: lisinopril 20 mg Tablet 40 MG PO (09:15)
[2020-03-03] MEDS: FUROsemide 40 mg Tablet PO (09:16)
[2020-03-03] MEDS: polyethylene glycol 3350 Pkt 17 gm PO (09:16)
[2020-03-03 11:05] VITALS: BP 114/86; PULSE 99; RESP 15; TEMP 36.6; O2SAT 94
== END 2020-03-03 11:05 | disposition home or self-care (01) | DRG 292 ==
LOC: ER 18:02 → CSU 03-01 00:02
PROVIDERS: Admitting Provider Family Medicine; Emergency Provider Family Medicine; PCP Internal Medicine; Visit Provider Family Medicine
DX: I11.0 Hypertensive heart disease with heart failure (principal); I48.19 Other persistent atrial fibrillation; I24.8 Other forms of acute ischemic heart disease; I50.43 Acute on chronic combined systolic (congestive) and diastolic (congestive) heart failure; I08.0 Rheumatic disorders of both mitral and aortic valves; I25.10 Atherosclerotic heart disease of native coronary artery without angina pectoris; Z95.5 Presence of coronary angioplasty implant and graft; E78.5 Hyperlipidemia, unspecified; K21.9 Gastro-esophageal reflux disease without esophagitis; M10.9 Gout, unspecified; K44.9 Diaphragmatic hernia without obstruction or gangrene; I25.5 Ischemic cardiomyopathy; M19.90 Unspecified osteoarthritis, unspecified site; Z96.642 Presence of left artificial hip joint; Z96.612 Presence of left artificial shoulder joint; Z90.79 Acquired absence of other genital organ(s); Z87.891 Personal history of nicotine dependence; Z79.891 Long term (current) use of opiate analgesic; Z79.02 Long term (current) use of antithrombotics/antiplatelets
CPT/HCPCS: 12345; 36415; 71045; 80053; 83735; 83880; 84443; 84484; 85025; 93005; 93306; 96372; 99284; 99291; J1650; J1940; J3490

== ENCOUNTER → 2020-03-08 15:39 | Outpatient (BNVA) | payer MEDICARE, SELFPAY | PROVIDERS: PCP Internal Medicine; Visit Provider Internal Medicine Cardiovascular Disease | DX: I50.9 Heart failure, unspecified (principal); R06.02 Shortness of breath; I48.91 Unspecified atrial fibrillation; Z09 Encounter for follow-up examination after completed treatment for conditions other than malignant neoplasm | CPT/HCPCS: 80048; 83880 ==

== ENCOUNTER 2020-03-22 12:00 | Outpatient (CLI) | payer MEDICARE, SELFPAY | END 2020-03-22 12:01 | disposition home or self-care (01) | LOC: SLEEP 03-23 09:47 | PROVIDERS: PCP Internal Medicine; Visit Provider Internal Medicine | DX: I50.23 Acute on chronic systolic (congestive) heart failure (principal); G47.33 Obstructive sleep apnea (adult) (pediatric) | CPT/HCPCS: G0399 ==

== ENCOUNTER 2020-05-02 10:43 | Emergency (ER) | payer MEDICARE, SELFPAY ==
[2020-05-02] VITALS (7 sets, daily range): BP systolic 115–130; BP diastolic 76–99; PULSE 86–114; RESP 14–23; TEMP 36.4–36.9; O2SAT 92–98; BMI 25.4
--- NOTE | 2020-05-02 10:54 | XR_ITS ---
WS: [id number] Portable AP upright chest, 05/02/2020 Clinical Data: chest pain Comparison: None. Findings: No nodules or masses are seen. The heart is slightly enlarged. The pulmonary vascularity is not mildly increased. There are small bilateral effusions. No pneumonia or pneumothorax is seen. The aortic arch and descending aorta show tortuosity. 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 XR/XR chest 1V portable [id number] Impression: 1. Cardiomegaly and small effusions with mild pulmonary vascular congestion. 2. Atherosclerosis.
--- NOTE | 2020-05-02 10:55 | ECG_ITS ---
[facility] Test Date: 2020-05-02 Pat Name: Stanislav Wu Department: Room: Gender: Male Braider Tender: LESTER KEMPB: 1940 Requested By: Jazmine Vila Order Number: [id number] Patrica MD: Florence Suarez M.D. Measurements Intervals [place] Rate: 83 P: [place]: QRS: -52 QRSD: 113 T: 93 QT: 402 QTc: 475 Interpretive Statements ATRIAL FIBRILLATION INFERIOR MYOCARDIAL INFARCTION, PROBABLY OLD ANTEROSEPTAL MYOCARDIAL INFARCTION, OF INDETERMINATE AGE Compared to ECG 02/29/2020 21:26:23 Ventricular premature complex(es) no longer present Aberrant conduction of supraventricular beat(s) no longer present Left anterior fascicular block no longer present Myocardial infarct finding still present Electronically Signed On 05-02-2020 18:46:42 LABOR UTILIZATION SUPERINTENDENT by Florence Suarez M.D. [id number]
--- NOTE | 2020-05-02 11:50 | W.ED.CHESTPA ---
HPI - Chest Pain General: Chief Complaint: Chest Pain Stated Complaint: HEART ISSUES Time Seen by Provider: 05/02/20 11:34 Source: patient and old records reviewed Mode of arrival: ambulatory History of Present Illness: HPI narrative: 80-year-old male, history of ischemic cardiomyopathy, CHF, A. fib presents with subxiphoid chest pain for the last 2 days. Initially was intermittent. Since last night it has been constant. Initially started under his ribs on the left, then spread towards the right side, now hurts under his ribs on both sides. Not worse with deep breathing. He took 1 nitro last night and had relief for about 30 minutes. No associated nausea, diaphoresis, fever. He has had a cough for several days. No orthopnea. He does have some shortness of breath with exertion which is not new. He is concerned about his blood pressures which have been higher than usual since nifedipine was discontinued on 04/12/2020. He has had several blood pressure readings over the last few days with his systolic readings as high as 200. MD complaint: chest pain and chest discomfort Pertinent past history: coronary artery disease and prior NC Onset (ago): day(s) Timing of current episode: episodic and still present Onset: during rest and awoke with symptoms Pain location: left chest, right chest, epigastric and subxiphoid Pain radiation: left arm, neck, jaw/teeth, abdomen and left shoulder Quality: tightness and aching Relieving factors: nitroglycerin Exacerbating factors: nothing Context: new medications Associated symptoms: Deny abdominal pain, diaphoresis, fever(s), nausea, palpitations, syncope or vomiting Review of Systems General: Reports: 10 or more systems reviewed and unremarkable except in HPI and below Const: Reports: fatigue; Denies: fever(s), chills, body aches, change in appetite, change in weight, night sweats or diaphoresis Eyes: Denies: change in vision, blurry vision or blind spots ENMT: Reports: dry mouth; Denies: epistaxis Card: Reports: chest pain, irregular heart rhythm and dyspnea on exertion; Denies: palpitations, swelling of feet/ankles or syncope Resp: Reports: non-productive cough; Denies: stridor, pain on inspiration, change in phlegm color, hemoptysis or chest congestion GI: Denies: abdominal pain, nausea or vomiting : Denies: difficulty urinating, dysuria or urinary frequency Musc: Denies: neck pain, back pain or extremity pain Skin/Breast: Denies: rash, pruritus or erythema Neuro: Denies: headache(s), numbness in extremities, weakness in extremities or difficulty walking Endo: Reports: polyuria Britton/Lymph: Reports: easy bruising and easy bleeding PFSH ED PFSH: Medical History 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 LV systolic function is moderately reduced with EF of 35 to 40%. There is severe hypokinesis of anterior and apical peña. Diastolic function is indeterminate because of atrial fibrillation. There is mild to moderate mitral regurgitation. Mild aortic regurgitation is seen. Mild pulmonic regurgitation is present. RVSP is 45 to 50 mmHg consistent with moderate pulmonary hypertension. Compared to prior study from 06/30/2018, LV systolic function is now further decreased to 35 to 40%. Atrial fibrillation -appears to be new onset, likely triggered by acute CHF exacerbation -telemetry monitoring -continue oral cardizem -VSS; continue to monitor -TSH wnl, K-3.6 -repeat Echo: EF=35-40%, severe hypokinesis of anterior and apical peña, mild to moderate MR, mild AR, moderate pulmonary HTN, mild TR -[id number] score-5; will need fdc anticoagulation, on Eliquis Benign essential hypertension with target blood pressure below 140/90 Congestive heart failure Dyslipidemia (high LDL; low HDL) Essential (primary) hypertension GERD (gastroesophageal reflux disease) Gout Hiatal hernia Hx of angiography Ischemic cardiomyopathy Mitral valve regurgitation Osteoarthritis Surgical History History of appendectomy History of carpal tunnel release History of hemorrhoidectomy History of inguinal hernia repair History of left hip replacement History of left shoulder replacement History of prostatectomy S/P PTCA (percutaneous transluminal coronary angioplasty) Family History Brother CAD (coronary artery disease) Diabetes Heart disease Father CAD (coronary artery disease) Heart disease Sister CAD (coronary artery disease) Cancer Diabetes Heart disease Mother Diabetes Stroke Grandmother Diabetes Denies family history of Clotting disorder Dementia Chronic kidney disease (CKD) Suicide Anesthesia complication Bleeding disorder Lung disease Social History Smoking and tobacco status: former smoker Alcohol intake: never History of recent travel: No Physical Exam Const: COMMON NORMALS: no acute distress, patient oriented x3 and alert EXAM LIMITATIONS: no altered mental status GENERAL APPEARANCE: cooperative and comfortable; not in distress and not anxious HENMT: COMMON NORMALS: normocephalic and atraumatic HEAD & SCALP: normocephalic and atraumatic FACE & SINUS: normal facial exam and face symmetric Eye: COMMON NORMALS: Equal, round and reactive pupils present, EOMs intact bilaterally, conjunctivae normal and no scleral icterus CONJUNCTIVA: Yes conjunctivae normal PUPIL: Yes Equal, round and reactive pupils present Neck/C-Spine: COMMON NORMALS: full ROM, no JVD and Thyroid normal THYROID: Thyroid normal CERVICAL SPINE: Yes cervical ROM normal Chest: COMMONS NORMALS: normal inspection of the chest and normal palpation of entire chest wall CHEST: No Ecchymosis present and No rash Resp: COMMON NORMALS: normal respiratory effort, No retractions, No use of accessory muscles and clear to auscultation bilaterally EFFORT & INSPECTION: Yes able to speak in complete sentences, No abnormal respiratory pattern and No tachypneic AUSCULTATION: clear to auscultation bilaterally Cardio: COMMON NORMALS: no JVD, regular rate, regular rhythm, S1 normal heart sound present and S2 normal heart sound present RATE: regular rate RHYTHM: regular rhythm and abnormal rhythm irregularly irregular HEART SOUNDS: S1 normal heart sound present and S2 normal heart sound present GI: COMMON NORMALS: Normal to inspection, nondistended, normoactive bowel sounds present and Soft to palpation INSPECTION: Yes normal to inspection AUSCULTATION: Yes normoactive bowel sounds PALPATION: Yes Soft to palpation, No Tenderness to palpation present (GI), No Guarding due to palpation present (GI) and No Rigid due to palpation Extremity: COMMON NORMALS: normal to inspection, capillary refill normal, no clubbing, cyanosis or edema and no pedal edema Neuro: COMMON NORMALS: patient oriented x3, moves all extremities, no focal motor deficits and no sensory deficits noted SENSORIUM/ORIENTATION: Yes alert Skin: COMMON NORMALS: no rashes or lesions noted, no wounds, turgor normal, no jaundice, no petechiae and no mottling GENERAL SKIN EXAM: no rashes or lesions noted and turgor normal Course Vital Signs: Vital signs: Vital Signs Temperature 97.6 F 05/02/20 15:02 Pulse Rate 86 05/02/20 15:02 Respiratory Rate 18 05/02/20 15:02 Blood Pressure 126/83 05/02/20 15:02 Pulse Oximetry 96 05/02/20 15:02 MDM - Chest Pain MDM Narrative: Medical decision making narrative: 80-year-old male with chest pain and tightness for the last 2 days. History of A. fib on Eliquis, ischemic cardiomyopathy and CHF?last EF 35 to 40%, and chronic pain. EKG; A. fib, rate 83, QRS 113, QTc 442, left axis deviation, no acute ST changes compared with EKG from 02/29/2020 CBC and chemistry stable. Serial troponins similar to baseline BNP 51560, which is increased from previous level of 5495. Chest x-ray shows cardiomegaly, small bilateral effusions, mild pulmonary vascular congestion. I will recommend that he call to schedule follow-up with his [employer] as soon as possible, and in the meantime, increase his a.m. dose of Lasix to 80 mg. Also counseled on avoiding high salt foods?apparently the patient ate takeout [place] food the day prior to symptom onset Differential Diagnosis: Cardiac arrest differential diagnosis: Likely acute massive pulmonary embolism, acute respiratory failure, acute myocardial infarction and cardiac arrest Medical Records: Attestation: I reviewed the patient's medical records. Lab Data: Attestation: I reviewed the patient's lab results. Labs: Lab Results 05/02/20 05/02/20 05/02/20 Range/Units 11:49 11:49 11:49 WBC 9.2 (4.0-10.0) 10^3/ uL RBC 4.76 (4.1-5.3) 10^6/u L Hgb 14.0 (11.7-16.6) g/dL Hct 43.1 (42.0-52.0) % MCV 90.5 (80-94) fL MCH 29.4 (28.0-34.0) pg MCHC 32.5 (30.0-36.0) g/dL RDW 15.2 H (12.1-15.1) % Plt Count 208 (130-400) 10^3/c mm MPV 10.8 H (7.4-10.4) fL Neut % (Auto) 72.4 % Lymph % (Auto) 18.6 % [place] % (Auto) 6.9 % Eos % (Auto) 1.1 % Baso % (Auto) 0.7 % Neut # (Auto) 6.63 (1.8-7.7) 10^3/u L Lymph # (Auto) 1.7 (0.8-4.8) 10^3/u L [place] # (Auto) 0.6 (0.2-0.9) 10^3/u L Eos # (Auto) 0.1 (0.0-0.8) 10^3/u L Baso # (Auto) 0.1 (0.0-0.1) 10^3/u L Nucleated RBC % (a uto) 0 % Nucleated RBCs # 0.0 /100WBC Sodium 139 (136-145) mmol/L Potassium 4.6 (3.5-5.1) mmol/L Chloride 103 (98-107) mmol/L Carbon Dioxide 25 (22-29) mmol/L Anion Gap 15.6 (5-19) BUN 16 (8-23) mg/dL Creatinine 1.1 (0.7-1.2) mg/dL GFR Calculation Not Reportable Glucose 90 (65-115) mg/dL Calculated Osmolal ity 289 (285-295) mOsm/k g Calcium 9.1 (8.5-10.5) mg/dL Magnesium 2.3 (1.7-2.3) mg/dL Total Bilirubin 1.0 (0.15-1.2) mg/dL AST 34 (0-40) U/L ALT 31 (0-41) U/L Alkaline Phosphata se 104 (40-130) IU/L Troponin T Baselin e 44 H (0-15) ng/L Troponin T 120 Min [place] (0-15) ng/L Delta Troponin T (0-10) ABS# NT-Pro-B Natriuret Pep 28329 H (0-450) pg/mL Total Protein 6.5 L (6.6-8.7) g/dL Albumin 3.9 (3.5-5.2) g/dL Globulin 2.6 (1.3-4.6) g/dL Urine Color (Yellow) Urine Appearance (CLEAR) Urine pH (5-7) Ur Specific Gravit y (1.005-1.030) Urine Protein (Negative) Urine Glucose (UA) (Normal) Urine Ketones (Negative) Urine Blood (Negative) Urine Nitrate (Negative) Urine Bilirubin (Negative) Urine Urobilinogen (Negative) mg/dL Ur Leukocyte Reyna ase (Negative) Urine RBC (0-2) /hpf Urine WBC (0-5) /hpf Ur Squamous Epith Cells (0-5) /hpf Amorphous Sediment Urine Bacteria (NONE) /hpf 05/02/20 05/02/20 Range/Units 13:00 13:40 WBC (4.0-10.0) 10^3/ uL RBC (4.1-5.3) 10^6/u L Hgb (11.7-16.6) g/dL Hct (42.0-52.0) % MCV (80-94) fL MCH (28.0-34.0) pg MCHC (30.0-36.0) g/dL RDW (12.1-15.1) % Plt Count (130-400) 10^3/c mm MPV (7.4-10.4) fL Neut % (Auto) % Lymph % (Auto) % [place] % (Auto) % Eos % (Auto) % Baso % (Auto) % Neut # (Auto) (1.8-7.7) 10^3/u L Lymph # (Auto) (0.8-4.8) 10^3/u L [place] # (Auto) (0.2-0.9) 10^3/u L Eos # (Auto) (0.0-0.8) 10^3/u L Baso # (Auto) (0.0-0.1) 10^3/u L Nucleated RBC % (a uto) % Nucleated RBCs # /100WBC Sodium (136-145) mmol/L Potassium (3.5-5.1) mmol/L Chloride (98-107) mmol/L Carbon Dioxide (22-29) mmol/L Anion Gap (5-19) BUN (8-23) mg/dL Creatinine (0.7-1.2) mg/dL GFR Calculation Glucose (65-115) mg/dL Calculated Osmolal ity (285-295) mOsm/k g Calcium (8.5-10.5) mg/dL Magnesium (1.7-2.3) mg/dL Total Bilirubin (0.15-1.2) mg/dL AST (0-40) U/L ALT (0-41) U/L Alkaline Phosphata se (40-130) IU/L Troponin T Baselin e (0-15) ng/L Troponin T 120 Min [place] 37.66 H (0-15) ng/L Delta Troponin T -6.34 L (0-10) ABS# NT-Pro-B Natriuret Pep (0-450) pg/mL Total Protein (6.6-8.7) g/dL Albumin (3.5-5.2) g/dL Globulin (1.3-4.6) g/dL Urine Color Yellow (Yellow) Urine Appearance Clear (CLEAR) Urine pH 6 (5-7) Ur Specific Gravit y 1.010 (1.005-1.030) Urine Protein Neg (Negative) Urine Glucose (UA) Norm (Normal) Urine Ketones Negative (Negative) Urine Blood Neg (Negative) Urine Nitrate Negative (Negative) Urine Bilirubin Neg (Negative) Urine Urobilinogen Norm (Negative) mg/dL Ur Leukocyte Reyna ase Negative (Negative) Urine RBC None (0-2) /hpf Urine WBC None (0-5) /hpf Ur Squamous Epith Cells 0-4 H (0-5) /hpf Amorphous Sediment Not Reportable Urine Bacteria Trace (NONE) /hpf Discharge Plan Discharge Patient Disposition: Home Clinical Impression: Chest pain not due to acute coronary syndrome Congestive heart failure Qualifiers: Heart failure type: unspecified Heart failure chronicity: acute on chronic Qualified Code(s): I50.9 - Heart failure, unspecified Condition: Stable Prescriptions: No Action hydrocodone-acetaminophen 5-325 mg tablet 1 tab PO Q8H PRN (Reason: pain) 30 Days Qty: 30 RF: 0 fentanyl 50 mcg/hr patch 72 hour 1 patch topical Q72H 30 Days Qty: 10 RF: 0 ascorbic acid (vitamin C) 500 mg tablet extended release 500 mg PO BID@,17 RF: 0 omega-3 fatty acids [Fish Oil Concentrate] 1,000 mg capsule 1,000 mg PO DAILY@07 RF: 0 meloxicam 15 mg tablet 15 mg PO DAILY@0600 RF: 0 clopidogrel 75 mg tablet 75 mg PO DAILY@0600 RF: 0 isosorbide mononitrate 60 mg tablet extended release 24 hr 60 mg PO DAILY@0600 RF: 0 metoprolol tartrate 50 mg tablet 50 mg PO BID@0600,1700 RF: 0 allopurinol 300 mg tablet 300 mg PO DAILY@0600 RF: 0 polyethylene glycol 3350 [Miralax] 17 gram/dose powder 17 gm PO DAILY@1700 RF: 0 lisinopril 40 mg tablet 40 mg PO DAILY@0600 RF: 0 ezetimibe 10 mg tablet 10 mg PO DAILY@0600 RF: 0 latanoprost 0.005 % drops 1 drp ophthalmic (eye) BID@ RF: 0 brimonidine 0.2 % drops 1 drp ophthalmic (eye) BID@ RF: 0 vitamin E 400 unit Capsule 400 unit PO DAILY@06 RF: 0 furosemide 40 mg tablet 60 mg PO BID@ RF: 0 atorvastatin 80 mg tablet 80 mg PO DAILY@1700 RF: 0 diltiazem HCl 120 mg capsule,extended release 12 hr 120 mg PO BID@ RF: 0 Nitrostat 0.4 mg tablet, sublingual 0.4 mg SUBLINGUAL Q5M PRN (Reason: Chest Pain) RF: 0 omeprazole 20 mg capsule,delayed release(DR/EC) 20 mg PO BID@ RF: 0 Eliquis 5 mg tablet 5 mg PO BID@ RF: 0 potassium chloride 20 mEq tablet extended release 20 meq PO TID@,, RF: 0 Discharge Orders: Discharge ED (Routine); Ordered 05/02/20 Ordered By: Liz Ramos Referrals: Raymond Reddy MD [Primary Care Provider] - Discharge Diet: Advance as tolerated and Low Salt Discharge Activity: Increase activity as tolerated Patient Instructions: Chest Pain (ED), Low Sodium Diet (ED) Activity Restrictions/Additional Instructions: Call to schedule follow-up appointment with your [employer] [employer] and PCP within the next 3 to 5 days to discuss your lab results and any necessary medication changes. I recommend that you change your morning dose of Lasix to 80 mg until you follow-up. Continue taking 60 mg as usual in the afternoon. Make sure to continue a low-sodium diet?avoid all fast food/processed foods, canned soups etc. Return immediately to the ER if you develop worsening pain, nausea, fever, difficulty breathing, palpitations, or any other concerning changes. Coding Level of Care Code ED Balancing Machine Set Up Worker for Margaret Dinero Exam Comprehensive
[2020-05-02 11:57] LABS: Basophils # 0.1 10^3/uL (0.0-0.1); Basophils % 0.7 %; Eosinophils # 0.1 10^3/uL (0.0-0.8); Eosinophils % 1.1 %; Hematocrit 43.1 % (42.0-52.0); Lymphocytes # 1.7 10^3/uL (0.8-4.8); Lymphocytes % 18.6 %; Mean Corpuscular HGB Conc 32.5 g/dL (30.0-36.0); Mean Corpuscular Hemoglobin 29.4 pg (28.0-34.0); Mean Corpuscular Volume 90.5 fL (80-94); Mean Platelet Volume 10.8 fL (7.4-10.4); Monocytes # 0.6 10^3/uL (0.2-0.9); Monocytes % 6.9 %; Neutrophils # 6.63 10^3/uL (1.8-7.7); Neutrophils % 72.4 %; Nucleated Red Blood Cells % 0 %; Platelet Count 208 10^3/cmm (130-400); Red Blood Count 4.76 10^6/uL (4.1-5.3); Red Cell Distribution Width 15.2 % (12.1-15.1); White Blood Count 9.2 10^3/uL (4.0-10.0)
--- NOTE | 2020-05-02 12:21 | PC.NURSE ---
Fentanyl patch right upper chest
[2020-05-02 12:26] LABS: Troponin(5th) Baseline 44 ng/L (0-15)
[2020-05-02 12:30] LABS: Alanine Aminotransferase 31 U/L (0-41); Albumin Level 3.9 g/dL (3.5-5.2); Alkaline Phosphatase 104 IU/L (40-130); Blood Urea Nitrogen 16 mg/dL (8-23); Calcium 9.1 mg/dL (8.5-10.5); Carbon Dioxide 25 mmol/L (22-29); Chloride 103 mmol/L (98-107); Globulin 2.6 g/dL (1.3-4.6); Glucose 90 mg/dL (65-115); Magnesium 2.3 mg/dL (1.7-2.3); NT Pro B Type Natriuretic Pept 12075 pg/mL (0-450); Osmolality Calculated 289 mOsm/kg (285-295); Sodium 139 mmol/L (136-145); Total Protein 6.5 g/dL (6.6-8.7)
[2020-05-02 12:41] LABS: Anion Gap 15.6 (5-19); Aspartate Amino Transferase 34 U/L (0-40); Potassium 4.6 mmol/L (3.5-5.1)
[2020-05-02 13:37] LABS: Add Urine Culture? No; Bacteria Urine TRACE /hpf; Bilirubin Urine Neg (Negative); Blood Urine Neg (Negative); Glucose Urine UA Norm (Normal); Ketones Urine Negative (Negative); Leukocyte Esterase Urine Negative (Negative); Nitrate Urine Negative (Negative); Protein Urine Neg (Negative); Squamous Epithelial Cell Urine 0-4 /hpf (0-5); Urine Appearance Clear (CLEAR); Urine Color Yellow (Yellow); Urobilinogen Urine Norm (Negative); pH Urine 6 (5-7)
[2020-05-02 14:15] LABS: Troponin 5 2HR 37.66 ng/L (0-15)
[2020-05-02 14:23] LABS: Troponin 5 2HR Delta -6.34 ABS# (0-10)
== END 2020-05-02 15:04 | disposition home or self-care (01) ==
PROVIDERS: Physician Assistant; Emergency Provider Family Medicine; PCP Internal Medicine
DX: R07.9 Chest pain, unspecified (principal); I11.0 Hypertensive heart disease with heart failure; I50.9 Heart failure, unspecified; Z79.01 Long term (current) use of anticoagulants; Z79.02 Long term (current) use of antithrombotics/antiplatelets; I25.119 Atherosclerotic heart disease of native coronary artery with unspecified angina pectoris; I48.91 Unspecified atrial fibrillation; E78.5 Hyperlipidemia, unspecified; Z87.891 Personal history of nicotine dependence
CPT/HCPCS: 36415; 71045; 80053; 81001; 83735; 83880; 84484; 85025; 93005; 99284

== ENCOUNTER 2020-05-07 11:15 | Emergency (ER) | payer MEDICARE, SELFPAY ==
[2020-05-07 11:17] VITALS: BP 115/79; PULSE 89; RESP 18; TEMP 36.6; O2SAT 96; BMI 21.4
--- NOTE | 2020-05-07 11:24 | CT_ITS ---
WS: [id number] CT HEAD TECHNIQUE: Noncontrast CT of the head obtained from the skullbase to the vertex. CLINICAL INFORMATION: fall, on blood thinner COMPARISON: CT January 04, 2020 DLP: 909.[address] scans at [facility] use at least one of these dose optimization techniques: automat ed exposure control; mA and/or kV adjustment per patient size (includes targeted exams where dose is matched to clinical indication); or iterative reconstruction. FINDINGS: No evidence of intracranial hemorrhage or mass effect. Ventricular system and basal cisterns are olivo nt. Mild small vessel changes with moderate parenchymal volume loss. Chronic lacunar infarct left yvonne lamus. No extra-axial fluid collections. No evidence of mass or mass effect. Normal woodruff-white differ entiation. Paranasal sinuses and mastoid air cells are well aerated. .Normal visualized soft tissues. CT/CT head wo con* 01014 IMPRESSION: 1. No evidence of intracranial hemorrhage or mass effect. 2. Mild small vessel changes. Moderate parenchymal volume loss. 3. No acute intracranial findings.
--- NOTE | 2020-05-07 11:28 | ED_ITS ---
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 He has a raised area he had that he is concerned about he is on blood thinners. Denies any other injuries. 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 LV systolic function is moderately reduced with EF of 35 to 40%. There is severe hypokinesis of anterior and apical peña. Diastolic function is indeterminate because of atrial fibrillation. There is mild to moderate mitral regurgitation. Mild aortic regurgitation is seen. Mild pulmonic regurgitation is present. RVSP is 45 to 50 mmHg consistent with moderate pulmonary hypertension. Compared to prior study from 06/30/2018, LV systolic function is now further decreased to 35 to 40%. Atrial fibrillation -appears to be new onset, likely triggered by acute CHF exacerbation -telemetry monitoring -continue oral cardizem -VSS; continue to monitor -TSH wnl, K-3.6 -repeat Echo: EF=35-40%, severe hypokinesis of anterior and apical peña, mild to moderate MR, mild AR, moderate pulmonary HTN, mild TR -[id number] score-5; will need medical terminologist anticoagulation, on Eliquis Benign essential hypertension with target blood pressure below 140/90 Congestive heart failure Dyslipidemia (high LDL; low HDL) Essential (primary) hypertension GERD (gastroesophageal reflux disease) Gout Hiatal hernia Hx of angiography Ischemic cardiomyopathy Mitral valve regurgitation Osteoarthritis Surgical History History of appendectomy History of carpal tunnel release History of hemorrhoidectomy History of inguinal hernia repair History of left hip replacement History of left shoulder replacement History of prostatectomy S/P PTCA (percutaneous transluminal coronary angioplasty) Family History Brother CAD (coronary artery disease) Diabetes Heart disease Father CAD (coronary artery disease) Heart disease Sister CAD (coronary artery disease) Cancer Diabetes Heart disease Mother Diabetes Stroke Grandmother Diabetes Denies family history of Clotting disorder Dementia Chronic kidney disease (CKD) Suicide Anesthesia complication Bleeding disorder Lung disease Social History Smoking and tobacco status: former smoker Alcohol intake: never History of recent travel: No Physical Exam Const: COMMON NORMALS: no acute distress Neuro: REINA COMA SCALE: document GCS findings COMMON NORMALS: CN's II- XII intact bilaterally Psych: COMMON NORMALS: mental status grossly normal Skin: OTHER: Mild hematoma right side forehead above eyebrow Course Vital Signs: Vital signs: Vital Signs Temperature 97.8 F 05/07/20 11:17 Pulse Rate 89 05/07/20 11:17 Respiratory Rate 18 05/07/20 11:17 Blood Pressure 115/79 05/07/20 11:17 Pulse Oximetry 96 05/07/20 11:17 Discharge Plan Discharge Prescriptions: No Action hydrocodone-acetaminophen 5-325 mg tablet 1 tab PO Q8H PRN (Reason: pain) 30 Days Qty: 30 RF: 0 fentanyl 50 mcg/hr patch 72 hour 1 patch topical Q72H 30 Days Qty: 10 RF: 0 ascorbic acid (vitamin C) 500 mg tablet extended release 500 mg PO BID@06,17 RF: 0 omega-3 fatty acids [Fish Oil Concentrate] 1,000 mg capsule 1,000 mg PO DAILY@07 RF: 0 meloxicam 15 mg tablet 15 mg PO DAILY@0600 RF: 0 clopidogrel 75 mg tablet 75 mg PO DAILY@0600 RF: 0 isosorbide mononitrate 60 mg tablet extended release 24 hr 60 mg PO DAILY@0600 RF: 0 metoprolol tartrate 50 mg tablet 50 mg PO BID@0600,1700 RF: 0 allopurinol 300 mg tablet 300 mg PO DAILY@0600 RF: 0 polyethylene glycol 3350 [Miralax] 17 gram/dose powder 17 gm PO DAILY@1700 RF: 0 lisinopril 40 mg tablet 40 mg PO DAILY@0600 RF: 0 ezetimibe 10 mg tablet 10 mg PO DAILY@0600 RF: 0 latanoprost 0.005 % drops 1 drp ophthalmic (eye) BID@ RF: 0 brimonidine 0.2 % drops 1 drp ophthalmic (eye) BID@ RF: 0 vitamin E 400 unit Capsule 400 unit PO DAILY@06 RF: 0 furosemide 40 mg tablet 60 mg PO BID@ RF: 0 atorvastatin 80 mg tablet 80 mg PO DAILY@1700 RF: 0 diltiazem HCl 120 mg capsule,extended release 12 hr 120 mg PO BID@ RF: 0 Nitrostat 0.4 mg tablet, sublingual 0.4 mg SUBLINGUAL Q5M PRN (Reason: Chest Pain) RF: 0 omeprazole 20 mg capsule,delayed release(DR/EC) 20 mg PO BID@ RF: 0 Eliquis 5 mg tablet 5 mg PO BID@ RF: 0 potassium chloride 20 mEq tablet extended release 20 meq PO TID@ RF: 0 Coding Level of Care Code ED Maintenance Groundskeeper for Ayushg Rosette
[2020-05-07 11:30] VITALS: BP 132/78; PULSE 97; RESP 20; O2SAT 96
[2020-05-07 12:31] VITALS: BP 134/100; PULSE 82; RESP 18; O2SAT 98
== END 2020-05-07 12:32 | disposition home or self-care (01) ==
PROVIDERS: Emergency Provider Nurse Practitioner Family; PCP Internal Medicine
DX: S00.83XA Contusion of other part of head, initial encounter (principal); Z79.01 Long term (current) use of anticoagulants; Z79.02 Long term (current) use of antithrombotics/antiplatelets; I25.119 Atherosclerotic heart disease of native coronary artery with unspecified angina pectoris; I48.91 Unspecified atrial fibrillation; I11.0 Hypertensive heart disease with heart failure; I50.9 Heart failure, unspecified; E78.5 Hyperlipidemia, unspecified; Z87.891 Personal history of nicotine dependence; W01.10XA Fall on same level from slipping, tripping and stumbling with subsequent striking against unspecified object, initial encounter
CPT/HCPCS: 70450; 99282

== ENCOUNTER → 2020-05-14 08:30 | Outpatient (BNVA) | payer MEDICARE, SELFPAY | PROVIDERS: PCP Internal Medicine; Visit Provider Internal Medicine Cardiovascular Disease | DX: E78.5 Hyperlipidemia, unspecified (principal); R06.02 Shortness of breath; I25.5 Ischemic cardiomyopathy; I50.9 Heart failure, unspecified; I48.91 Unspecified atrial fibrillation; I70.90 Unspecified atherosclerosis | CPT/HCPCS: 80048; 80061; 83880 ==

== ENCOUNTER 2020-06-08 18:05 | Emergency (ER) | payer MEDICARE, SELFPAY ==
--- NOTE | 2020-06-08 18:21 | XRR_ITS ---
PROCEDURE INFORMATION: Exam: XR Chest Exam date and time: 06/08/2020 6:25 PM Age: 80 years old Clinical indication: Chest pain; Prior surgery; Surgery type: 13 stents, left shoulder; Additional info: Cp TECHNIQUE: Imaging protocol: XR of the chest. Views: 1 view. COMPARISON: CR XR chest 1V portable [id number] 05/02/2020 11:31 AM FINDINGS: Lungs: Unremarkable. No consolidation. Pleural spaces: Unremarkable. No pleural effusion. No pneumothorax. Heart/Mediastinum: Unremarkable. No cardiomegaly. Bones/joints: A metallic arthroplasty is present in the left shoulder. XR/XR chest 1V portable [id number] IMPRESSION: 1. No acute findings. 2. Metallic arthroplasty left shoulder
--- NOTE | 2020-06-08 18:22 | ECG_ITS ---
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 Measurements Intervals [place] Rate: 80 P: GA: QRS: -76 QRSD: 105 T: 85 QT: 384 QTc: 443 Interpretive Statements ATRIAL FIBRILLATION ANTERIOR MYOCARDIAL INFARCTION [40+ ms Q WAVE AND/OR ST/T ABNORMALITY IN V3/V4], PROBABLY OLD INFERIOR MYOCARDIAL INFARCTION [40+ ms Q WAVE AND/OR ST/T ABNORMALITY IN II/aVF], PROBABLY OLD INTERPRETATION BASED ON A DEFAULT AGE OF 40 YEARS Compared to ECG 05/02/2020 11:15:32 No significant changes Electronically Signed On 06-08-2020 21:03:36 CDT by Red Sherman M.D. [id number]
[2020-06-08 18:31] VITALS: BP 125/75; PULSE 80; RESP 15; TEMP 36.7; O2SAT 98; BMI 20.7
[2020-06-08] MEDS: aspirin 81 mg Chew Tablet 324 MG PO (20:50)
[2020-06-08 20:56] VITALS: BP 124/80; PULSE 88; RESP 14; O2SAT 95
--- NOTE | 2020-06-08 20:58 | ED_ITS ---
HPI - Chest Pain General: Chief Complaint: Chest Pain Stated Complaint: chest pain Time Seen by Provider: 06/08/20 20:26 History of Present Illness: HPI narrative: The patient is an 80-year-old male with past medical history atrial fibrillation, coronary artery disease with more than 10 stents in his heart, multiple MIs in the past. He comes to the ER today complaining of left-sided chest pain after he arrived. He spent some time in the waiting room and says now he feels better and it has resolved. 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 He says his chest pain that he has at home usually resolves with 1 nitroglycerin however he did not take 1 today. The pain resolved while he was in the waiting room. Pertinent past history: coronary artery disease, prior [place] and [employer] Timing of current episode: episodic Onset: during exertion Pain location: left chest Pain radiation: none Severity: moderate Quality: tightness Exacerbating factors: exertion Associated symptoms: Reports no associated symptoms; Deny abdominal pain, dyspnea or palpitations Review of Systems General: Reports: 10 or more systems reviewed and unremarkable except in HPI and below Const: Denies: fatigue Eyes: Denies: change in vision, blurry vision or eye redness ENMT: Denies: throat pain, swelling of lips/tongue, ear or mastoid pain or nasal congestion Card: Reports: chest pain and irregular heart rhythm; Denies: palpitations, edema, dyspnea on exertion or orthopnea Resp: Denies: dyspnea, productive cough or non-productive cough GI: Denies: abdominal pain, diarrhea or GI cramping : Denies: flank pain, urinary frequency or urinary urgency Musc: Denies: neck pain, back pain, extremity pain, joint pain, joint redness, limited range of motion or muscle weakness Skin/Breast: Denies: rash, pruritus, erythema, skin pain or skin tenderness Neuro: Denies: headache(s), numbness in extremities, weakness in extremities, sensory changes, difficulty walking, dizziness, confusion or Slurred speech present Psych: Denies: anxiety or depression Endo: Denies: polyuria All/Imm: Denies: urticaria, throat swelling or tongue swelling PFSH ED PFSH: Medical History 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 LV systolic function is moderately reduced with EF of 35 to 40%. There is severe hypokinesis of anterior and apical peña. Diastolic function is indeterminate because of atrial fibrillation. There is mild to moderate mitral regurgitation. Mild aortic regurgitation is seen. Mild pulmonic regurgitation is present. RVSP is 45 to 50 mmHg consistent with moderate pulmonary hypertension. Compared to prior study from 06/30/2018, LV systolic function is now further decreased to 35 to 40%. 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 Benign essential hypertension with target blood pressure below 140/90 Congestive heart failure Dyslipidemia (high LDL; low HDL) Essential (primary) hypertension GERD (gastroesophageal reflux disease) Gout Hiatal hernia Hx of angiography Ischemic cardiomyopathy Mitral valve regurgitation Osteoarthritis Surgical History History of appendectomy History of carpal tunnel release History of hemorrhoidectomy History of inguinal hernia repair History of left hip replacement History of left shoulder replacement History of prostatectomy S/P PTCA (percutaneous transluminal coronary angioplasty) Family History Brother CAD (coronary artery disease) Diabetes Heart disease Father CAD (coronary artery disease) Heart disease Sister CAD (coronary artery disease) Cancer Diabetes Heart disease Mother Diabetes Stroke Grandmother Diabetes Denies family history of Clotting disorder Dementia Chronic kidney disease (CKD) Suicide Anesthesia complication Bleeding disorder Lung disease Social History Smoking and tobacco status: former smoker Alcohol intake: never History of recent travel: No Physical Exam Const: COMMON NORMALS: no acute distress, average body habitus, patient oriented x3, no limitations, healthy appearing, alert and well nourished GENERAL APPEARANCE: cooperative, comfortable, well kempt and well developed ORIENTATION/CONSCIOUSNESS: Yes awake, Yes oriented to person, Yes oriented to place and Yes oriented to time HENMT: COMMON NORMALS: normocephalic, external ears normal and Normal external nose present HEAD & SCALP: normal to inspection and normocephalic NOSE: Normal external nose present EXTERNAL EAR: Yes external ears normal MOUTH: Normal oral and palatal mucosa present THROAT: posterior oropharynx normal Eye: COMMON NORMALS: Equal, round and reactive pupils present and EOMs intact bilaterally GENERAL EYE: appearance normal, both eyes and all related structures PUPIL: Yes Equal, round and reactive pupils present Neck/C-Spine: COMMON NORMALS: full ROM, no lymphadenopathy, no meningeal signs and no JVD GENERAL: Yes normal visual inspection Lymph: LYMPHATIC: no lymphadenopathy noted Chest: COMMONS NORMALS: normal inspection of the chest and normal palpation of entire chest wall Resp: COMMON NORMALS: normal respiratory effort, No retractions, No use of accessory muscles, clear to auscultation bilaterally and percussion normal EFFORT & INSPECTION: Yes able to speak in complete sentences AUSCULTATION: clear to auscultation bilaterally PERCUSSION: percussion normal Cardio: COMMON NORMALS: no JVD, regular rate, S1 normal heart sound present, S2 normal heart sound present and Peripheral pulses 2+ throughout RATE: regular rate RHYTHM: abnormal rhythm irregularly irregular HEART SOUNDS: S1 normal heart sound present and S2 normal heart sound present PERIPHERAL PULSES: Peripheral pulses 2+ throughout GI: COMMON NORMALS: Normal to inspection, nondistended, normoactive bowel sounds present, Soft to palpation, non-tender and no masses INSPECTION: Yes normal to inspection PALPATION: Yes Soft to palpation : COMMON NORMALS: Yes no CVA tenderness BLADDER/KIDNEY EXAM: Yes no CVA tenderness Back/Pelvis: COMMON NORMALS: no CVA tenderness, thoracic and lumbar spine normal to inspection, no thoracic nor lumbar tenderness and thoraco-lumbar ROM normal Extremity: COMMON NORMALS: normal to inspection, full ROM, capillary refill normal, no joint enlargement and no pedal edema GENERAL: Yes normal exam except as noted Neuro: COMMON NORMALS: patient oriented x3, CN's II-XII intact bilaterally, moves all extremities, no focal motor deficits, no sensory deficits noted and gait normal SENSORIUM/ORIENTATION: Yes alert, Yes oriented to person, Yes oriented to place and Yes oriented to time MENINGEAL SIGNS: Yes no meningeal signs Psych: COMMON NORMALS: mental status grossly normal, Normal thought process present, cooperative, normal affect and speech normal APPEARANCE: Yes well kempt ATTITUDE: Yes calm SPEECH: Yes normal speech THOUGHT PROCESS: Normal thought process present Skin: COMMON NORMALS: no rashes or lesions noted GENERAL SKIN EXAM: no rashes or lesions noted Course Vital Signs: Vital signs: Vital Signs Temperature 98.0 F 06/08/20 18:31 Pulse Rate 70 06/08/20 22:00 Respiratory Rate 12 06/08/20 22:00 Blood Pressure 104/67 06/08/20 22:00 Pulse Oximetry 97 06/08/20 22:00 MDM - Chest Pain MDM Narrative: Medical decision making narrative: Stanislav came in today complaining of left-sided chest pain that resolved prior to him getting placed in a bed. He has a slightly elevated troponin at 48 which the 2-hour troponin was 45. He also has atrial fibrillation and takes Eliquis chronically. I discussed the case with Dr. Suarez who agrees with plan of care and the patient can safely be discharged home. He has a stress test scheduled on the of this month and I recommended he attend that appointment as well as following up with his primary care physician in a few days to discuss his symptoms and recheck his kidney function.. Return to the ER at anytime with worsening symptoms. Lab Data: Labs: Lab Results 06/08/20 06/08/20 06/08/20 Range/Units 20:48 20:48 20:48 WBC 8.9 (4.0-10.0) 10^3/ uL RBC 5.37 H (4.1-5.3) 10^6/u L Hgb 15.6 (11.7-16.6) g/dL Hct 48.0 (42.0-52.0) % MCV 89.4 (80-94) fL MCH 29.1 (28.0-34.0) pg MCHC 32.5 (30.0-36.0) g/dL RDW 14.8 (12.1-15.1) % Plt Count 213 (130-400) 10^3/c mm MPV 10.7 H (7.4-10.4) fL Neut % (Auto) 67.9 % Lymph % (Auto) 22.4 % Spencer % (Auto) 6.2 % Eos % (Auto) 2.4 % Baso % (Auto) 0.7 % Neut # (Auto) 6.07 (1.8-7.7) 10^3/u L Lymph # (Auto) 2.0 (0.8-4.8) 10^3/u L Spencer # (Auto) 0.6 (0.2-0.9) 10^3/u L Eos # (Auto) 0.2 (0.0-0.8) 10^3/u L Baso # (Auto) 0.1 (0.0-0.1) 10^3/u L Nucleated RBC % (a uto) 0 % Nucleated RBCs # 0.0 /100WBC D-Dimer 0.45 (0-0.59) ug/mIFE U Sodium 137 (136-145) mmol/L Potassium 4.7 (3.5-5.1) mmol/L Chloride 98 (98-107) mmol/L Carbon Dioxide 27 (22-29) mmol/L Anion Gap 16.7 (5-19) BUN 31 H (8-23) mg/dL Creatinine 1.3 H (0.7-1.2) mg/dL GFR Calculation Not Reportable Glucose 133 H (65-115) mg/dL Calculated Osmolal ity 292 (285-295) mOsm/k g Calcium 9.4 (8.5-10.5) mg/dL Total Bilirubin 0.4 (0.15-1.2) mg/dL AST 32 (0-40) U/L ALT 28 (0-41) U/L Alkaline Phosphata se 103 (40-130) IU/L Troponin T Baselin e (0-15) ng/L Troponin T 120 Min [place] (0-15) ng/L Delta Troponin T (0-10) ABS# NT-Pro-B Natriuret Pep 2252 H (0-450) pg/mL Total Protein 7.1 (6.6-8.7) g/dL Albumin 4.1 (3.5-5.2) g/dL Globulin 3.0 (1.3-4.6) g/dL 06/08/20 06/08/20 Range/Units 20:48 22:32 WBC (4.0-10.0) 10^3/ uL RBC (4.1-5.3) 10^6/u L Hgb (11.7-16.6) g/dL Hct (42.0-52.0) % MCV (80-94) fL MCH (28.0-34.0) pg MCHC (30.0-36.0) g/dL RDW (12.1-15.1) % Plt Count (130-400) 10^3/c mm MPV (7.4-10.4) fL Neut % (Auto) % Lymph % (Auto) % Spencer % (Auto) % Eos % (Auto) % Baso % (Auto) % Neut # (Auto) (1.8-7.7) 10^3/u L Lymph # (Auto) (0.8-4.8) 10^3/u L Spencer # (Auto) (0.2-0.9) 10^3/u L Eos # (Auto) (0.0-0.8) 10^3/u L Baso # (Auto) (0.0-0.1) 10^3/u L Nucleated RBC % (a uto) % Nucleated RBCs # /100WBC D-Dimer (0-0.59) ug/mIFE U Sodium (136-145) mmol/L Potassium (3.5-5.1) mmol/L Chloride (98-107) mmol/L Carbon Dioxide (22-29) mmol/L Anion Gap (5-19) BUN (8-23) mg/dL Creatinine (0.7-1.2) mg/dL GFR Calculation Glucose (65-115) mg/dL Calculated Osmolal ity (285-295) mOsm/k g Calcium (8.5-10.5) mg/dL Total Bilirubin (0.15-1.2) mg/dL AST (0-40) U/L ALT (0-41) U/L Alkaline Phosphata se (40-130) IU/L Troponin T Baselin e 48 H (0-15) ng/L Troponin T 120 Min [place] 45.13 H (0-15) ng/L Delta Troponin T -2.87 L (0-10) ABS# NT-Pro-B Natriuret Pep (0-450) pg/mL Total Protein (6.6-8.7) g/dL Albumin (3.5-5.2) g/dL Globulin (1.3-4.6) g/dL Discharge Plan Discharge Patient Disposition: Home Clinical Impression: Chest pain Condition: Stable Prescriptions: No Action hydrocodone-acetaminophen 5-325 mg tablet 1 tab PO Q8H PRN (Reason: pain) 30 Days Qty: 30 RF: 0 fentanyl 50 mcg/hr patch 72 hour 1 patch topical Q72H 30 Days Qty: 10 RF: 0 ascorbic acid (vitamin C) 500 mg tablet extended release 500 mg PO BID@,17 RF: 0 omega-3 fatty acids [Fish Oil Concentrate] 1,000 mg capsule 1,000 mg PO DAILY@07 RF: 0 (DME) CPAP See Rx Instructions .Route .MEDSUPPLY Qty: 1 RF: 0 potassium chloride 20 mEq tablet extended release 20 meq PO BID@0600,1700 RF: 0 meloxicam 15 mg tablet 15 mg PO DAILY@0600 Qty: 90 RF: 3 allopurinol 300 mg tablet 300 mg PO DAILY@0600 Qty: 90 RF: 3 clopidogrel 75 mg tablet 75 mg PO DAILY@0600 RF: 0 isosorbide mononitrate 60 mg tablet extended release 24 hr 60 mg PO DAILY@0600 RF: 0 metoprolol tartrate 50 mg tablet 50 mg PO BID@0600,1700 RF: 0 polyethylene glycol 3350 [Miralax] 17 gram/dose powder 17 gm PO DAILY@1700 RF: 0 lisinopril 40 mg tablet 40 mg PO DAILY@0600 RF: 0 ezetimibe 10 mg tablet 10 mg PO DAILY@0600 RF: 0 latanoprost 0.005 % drops 1 drp ophthalmic (eye) BID@,17 RF: 0 brimonidine 0.2 % drops 1 drp ophthalmic (eye) BID@,17 RF: 0 vitamin E 400 unit Capsule 400 unit PO DAILY@06 RF: 0 furosemide 40 mg tablet 60 mg PO BID@,17 RF: 0 atorvastatin 80 mg tablet 80 mg PO DAILY@1700 RF: 0 diltiazem HCl 120 mg capsule,extended release 12 hr 120 mg PO BID@,17 RF: 0 nitroglycerin [Nitrostat] 0.4 mg tablet, sublingual 0.4 mg SUBLINGUAL Q5M PRN (Reason: Chest Pain) RF: 0 omeprazole 20 mg capsule,delayed release(DR/EC) 20 mg PO BID@ RF: 0 Eliquis 5 mg tablet 5 mg PO BID@ RF: 0 spironolactone 25 mg tablet 25 mg PO DAILY@0600 RF: 0 Discharge Orders: Discharge ED (Routine); Ordered 06/08/20 Ordered By: Bruno Portillo Referrals: Raymond Reddy MD [Primary Care Provider] - Discharge Diet: Advance as tolerated Discharge Activity: Resume usual activity Patient Instructions: Chest Pain (ED), Opioid Safety Activity Restrictions/Additional Instructions: You have had an episode of chest pain which has resolved in the ER. We have checked your heart and it appears you are not having a heart attack at the moment. Please continue to take your medications at home and make sure you follow-up with your primary care physician in a few days to discuss your symptoms and make sure they are improving. Also you have a stress test scheduled on the and make sure you attend that appointment. Return to the ER at anytime with return of your chest pain or any worrisome symptoms. Coding Level of Care Code ED Raimann Machine Operator for Margaret Fwyoli Exam Comprehensive
[2020-06-08 20:59] LABS: Basophils # 0.1 10^3/uL (0.0-0.1); Basophils % 0.7 %; Eosinophils # 0.2 10^3/uL (0.0-0.8); Eosinophils % 2.4 %; Hemoglobin 15.6 g/dL (11.7-16.6); Lymphocytes % 22.4 %; Mean Corpuscular HGB Conc 32.5 g/dL (30.0-36.0); Mean Corpuscular Hemoglobin 29.1 pg (28.0-34.0); Mean Corpuscular Volume 89.4 fL (80-94); Mean Platelet Volume 10.7 fL (7.4-10.4); Monocytes # 0.6 10^3/uL (0.2-0.9); Monocytes % 6.2 %; Neutrophils # 6.07 10^3/uL (1.8-7.7); Neutrophils % 67.9 %; Nucleated Red Blood Cells % 0 %; Platelet Count 213 10^3/cmm (130-400); Red Blood Count 5.37 10^6/uL (4.1-5.3); Red Cell Distribution Width 14.8 % (12.1-15.1); White Blood Count 8.9 10^3/uL (4.0-10.0)
[2020-06-08 21:14] LABS: Troponin(5th) Baseline 48 ng/L (0-15)
[2020-06-08 21:15] LABS: D Dimer 0.45 ug/mIFEU (0-0.59)
[2020-06-08 21:38] LABS: Alanine Aminotransferase 28 U/L (0-41); Albumin Level 4.1 g/dL (3.5-5.2); Alkaline Phosphatase 103 IU/L (40-130); Anion Gap 16.7 (5-19); Aspartate Amino Transferase 32 U/L (0-40); Blood Urea Nitrogen 31 mg/dL (8-23); Calcium 9.4 mg/dL (8.5-10.5); Carbon Dioxide 27 mmol/L (22-29); Chloride 98 mmol/L (98-107); Glucose 133 mg/dL (65-115); NT Pro B Type Natriuretic Pept 2252 pg/mL (0-450); Osmolality Calculated 292 mOsm/kg (285-295); Potassium 4.7 mmol/L (3.5-5.1); Sodium 137 mmol/L (136-145); Total Bilirubin 0.4 mg/dL (0.15-1.2); Total Protein 7.1 g/dL (6.6-8.7)
[2020-06-08 22:00] VITALS: BP 104/67; PULSE 70; RESP 12; O2SAT 97
[2020-06-08 23:08] LABS: Troponin 5 2HR 45.13 ng/L (0-15)
[2020-06-08 23:09] LABS: Troponin 5 2HR Delta -2.87 ABS# (0-10)
[2020-06-09 00:33] VITALS: BP 97/64; PULSE 97; RESP 16; O2SAT 96
== END 2020-06-09 00:35 | disposition home or self-care (01) ==
PROVIDERS: Emergency Medicine; Emergency Provider Family Medicine; PCP Internal Medicine
DX: R07.9 Chest pain, unspecified (principal); Z79.01 Long term (current) use of anticoagulants; Z79.02 Long term (current) use of antithrombotics/antiplatelets; I25.119 Atherosclerotic heart disease of native coronary artery with unspecified angina pectoris; I11.0 Hypertensive heart disease with heart failure; I50.9 Heart failure, unspecified; E78.5 Hyperlipidemia, unspecified; Z87.891 Personal history of nicotine dependence
CPT/HCPCS: 71045; 80053; 83880; 84484; 85025; 85378; 93005; 99284

== ENCOUNTER → 2020-06-11 08:58 | Outpatient (BNVA) | payer MEDICARE, SELFPAY | PROVIDERS: PCP Internal Medicine; Visit Provider Internal Medicine Cardiovascular Disease | DX: I34.0 Nonrheumatic mitral (valve) insufficiency (principal); I50.9 Heart failure, unspecified; I25.119 Atherosclerotic heart disease of native coronary artery with unspecified angina pectoris; I10 Essential (primary) hypertension; I70.90 Unspecified atherosclerosis | CPT/HCPCS: 80048; 83880 ==

== ENCOUNTER 2020-06-12 09:03 | Outpatient (CLI) | payer MEDICARE, SELFPAY ==
--- NOTE | 2020-06-12 09:29 | MR_ITS ---
WS: [id number] MRI LUMBAR SPINE NONCONTRAST HISTORY: M54.5 - Low back pain COMPARISON: None available. TECHNIQUE: Sagittal and axial multisequence imaging is submitted. Cervical disc and osteophyte and facet arthritis causing a mild central stenosis at C5-6 and C6-7. Straightening of the normal lumbar lordosis. Very mild RIGHT curvature. Moderate to severe degenerative disc disease and osteophytosis throughout the lumbar spine. Most sign ificant degenerative disc disease at L2-3. Very mild anterior wedging of L1. Conus terminates normally at L1. L1-L2: Moderate annular disc bulging with osteophytic ridging and facet arthritis. Deformity of the t hecal sac resulting in moderate central, bilateral subarticular recess and foraminal stenosis. L2-L3: Moderate annular disc bulging and osteophytic ridging. Marked ligamentum flavum hypertrophy. S evere central, bilateral subarticular recess and moderate bilateral foraminal stenosis. L3-L4: Moderate annular disc bulging slightly asymmetric to the LEFT. Osteophytosis and marked facet joint arthritis. Asymmetric ligamentum flavum hypertrophy, RIGHT greater than LEFT. Effacement of CSF and severe central, bilateral subarticular recess and moderate bilateral foraminal stenosis. L4-L5: Diffuse annular disc bulging and osteophytic ridging. Severe central, bilateral subarticular r ecess and moderate foraminal stenosis. L5-S1: Diffuse annular disc bulging with a central disc protrusion contacting the S1 nerve roots. Mod erate central with severe bilateral subarticular recess and moderate bilateral foraminal Mild atherosclerosis aorta with no aneurysm. MR/MR lumbar spine wo con* [id number] IMPRESSION: 1. Advanced degenerative changes with multilevel areas of significant stenosis throughout the lumbar spine. 2. Severe central and bilateral subarticular recess stenosis with moderate for aminal stenosis at L2-3, L3-4 and L4-5. 3. Moderate central with severe bilateral subarticular recess stenosis at L5-S 1. 4. Moderate central, bilateral subarticular and foraminal stenosis at L1-2. 5. Moderate bilateral foraminal stenosis from L2-3 to L5-S1.
== END 2020-06-12 09:04 | disposition home or self-care (01) ==
PROVIDERS: PCP Internal Medicine; Visit Provider Internal Medicine
DX: M54.5 Low back pain (principal); M48.061 Spinal stenosis, lumbar region without neurogenic claudication; M48.07 Spinal stenosis, lumbosacral region
CPT/HCPCS: 72148

== ENCOUNTER 2020-06-21 06:40 | Outpatient (CLI) | payer MEDICARE, SELFPAY ==
--- NOTE | 2020-06-21 07:05 | ECG_ITS ---
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 Interpretive Statements NAME OF STUDY: LEXISCAN SESTAMIBI STRESS TEST INDICATION: [Chest Pain; Shortness of Breath] Procedure: At the baseline, the blood pressure was 117/72 mmHg with a heart rate of 69 bpm. The electrocardiogram showed atrial fibrillation with normal ST T waves. The Lexiscan was infused over a period of 20 seconds. A total of 0.4 mg of Lexiscan was infused. The stress phase was continued for a total of 5 minutes. Heart rate was at the end of stress phase was 82 bpm and a blood pressure of 123/81 mmHg. The EKG at the peak infusion revealed atrial fibrillation with no significant ST-T wave changes. Sestamibi was injected 20 seconds after the Lexiscan infusion. Blood pressure at the end of recovery phase was 116/84 mmHg with a heart rate of 84 bpm. Conclusion: 1. Normal EKG response to Lexiscan infusion 2. No Lexiscan induced chest pain or cardiac arrhythmia. 3. Normal blood pressure and heart rate response. 4. Sestamibi/sestamibi perfusion scan pending; see separate report. Electronically Signed On 06-30-2020 12:26:55 CDT by Rene Hickey M.D. [id number]
--- NOTE | 2020-06-21 07:06 | NMCV_ITS ---
NM earlene perf SPECT r/s* [id number] Stanislav Wu Age: 80 Gender: M : 1940 Exam Date: 06/21/2020 08:21 Ordering Phys: Red Sherman MD ([email or web address]) Technologist: JEWELL Valente Exam Location: [facility] Indications: SHORTNESS OF BREATH STRESS TEST Please see separate stress test report in [facility] for full findings IMAGE PROTOCOL Rest/Stress 1 Lexiscan Day Radiopharmaceutical Dose (mCi) Administration Site Administered by Rest: Tc-99m 10.8 IV JEWELL Valente Sestamibi Stress:Tc-99m 32.4 IV JEWELL Cannon Sestamibi Rest: 21-Jun-2020 90 Discovery 630 Stress: 21-Jun-2020 30 Discovery 630 0.4mg Lexiscan. Images obtained in supine and prone position. SPECT RESULTS Technical Quality: Excellent Raw Data Analysis: Normal Image Corrections: No attenuation or motion correction applied Summed Stress Score: 24 Summed Rest Score: 27 Summed Difference Score: 0 PERFUSION FINDINGS Severely diminished tracer uptake in the mid and apical anterior, inferior and in all the apical segments with no significant reversibility. Moderately diminished tracer uptake also was noted in the mid anterolateral and anteroseptal segments with no significant reversibility. FUNCTIONAL RESULTS (calculated via Gated SPECT) Stress Image LV EF (%): 30 Stress EDV (mL):210 TID: 1.15 Stress ESV (mL):146 FUNCTIONAL FINDINGS: There is hypokinesis of left ventricle with akinetic septum and the apex. IMPRESSIONS 1. Moderate to large areas of persistent decreased tracer uptake in the anterior, inferior, anteroseptal and anterolateral wall regions, suggestive of myocardial scarring in the distribution of all the 3 coronary arteries. 2. Multiple wall motion of abnormalities as mentioned above. 3. Moderately dilated LV cavity, end-systolic volume of 146 mm 4. Diminished LV ejection fraction of 30%. 5. Slightly elevated transient ischemic dilatation ratio, may suggest endocardial ischemia. The positive predictive value is low. Clinical correlation is recommended Dr Red Sherman MD FAC (Electronically Signed) Final Date: 25 Jun 2020 10:20 S
[2020-06-21 07:23] VITALS: BMI 21.7
[2020-06-21] MEDS: regadenoson 0.4 Mg/5 ml Syringe IVP (08:47)
[2020-06-21 09:14] VITALS: BP 120/85; PULSE 79
== END 2020-06-21 06:41 | disposition home or self-care (01) ==
LOC: CDL 06:41
PROVIDERS: PCP Internal Medicine; Visit Provider Internal Medicine Cardiovascular Disease
DX: R07.9 Chest pain, unspecified (principal)
CPT/HCPCS: 78452; 93017; A9500; J2785

== ENCOUNTER → 2020-06-26 09:05 | Outpatient (BNVA) | payer MEDICARE, SELFPAY | PROVIDERS: PCP Internal Medicine; Referring Provider Internal Medicine; Visit Provider Orthopaedic Surgery | DX: M48.061 Spinal stenosis, lumbar region without neurogenic claudication (principal); M47.896 Other spondylosis, lumbar region | CPT/HCPCS: 72110 ==

== ENCOUNTER → 2020-06-27 10:47 | Outpatient (BNVA) | payer MEDICARE, SELFPAY | PROVIDERS: PCP Internal Medicine; Visit Provider Internal Medicine Cardiovascular Disease | DX: I50.33 Acute on chronic diastolic (congestive) heart failure (principal); R06.02 Shortness of breath; N18.9 Chronic kidney disease, unspecified; I48.91 Unspecified atrial fibrillation; I25.119 Atherosclerotic heart disease of native coronary artery with unspecified angina pectoris; E78.5 Hyperlipidemia, unspecified | CPT/HCPCS: 80048; 83880; 84443 ==

== ENCOUNTER → 2020-07-19 11:12 | Outpatient (BNVA) | payer MEDICARE, SELFPAY | PROVIDERS: PCP Internal Medicine; Visit Provider Internal Medicine Cardiovascular Disease | DX: E78.5 Hyperlipidemia, unspecified (principal); I70.90 Unspecified atherosclerosis; I50.9 Heart failure, unspecified; I48.91 Unspecified atrial fibrillation; I25.119 Atherosclerotic heart disease of native coronary artery with unspecified angina pectoris | CPT/HCPCS: 80048; 83880 ==

== ENCOUNTER 2020-08-04 01:52 | Inpatient (IN) | payer MEDICARE, SELFPAY ==
[2020-08-04] VITALS (9 sets, daily range): BP systolic 95–117; BP diastolic 58–74; PULSE 68–90; RESP 14–18; TEMP 36.4–37.1; O2SAT 93–97; BMI 20.7
--- NOTE | 2020-08-04 01:56 | ECG_ITS ---
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 Measurements Intervals [place] Rate: 72 P: MD: QRS: -72 QRSD: 130 T: 93 QT: 418 QTc: 461 Interpretive Statements ATRIAL FLUTTER/TACHYCARDIA LEFT ANTERIOR FASCICULAR BLOCK [QRS AXIS <= -45, QR IN I, RS IN II] ANTEROSEPTAL MYOCARDIAL INFARCTION [40+ ms Q WAVE IN V1-V4], OF INDETERMINATE AGE Compared to ECG 06/08/2020 18:37:39 Left anterior fascicular block now present Atrial fibrillation no longer present Myocardial infarct finding still present Electronically Signed On 08-04-2020 22:56:47 CDT by Florence Suarez M.D. [id number]
--- NOTE | 2020-08-04 01:56 | XRR_ITS ---
PROCEDURE INFORMATION: Exam: XR Chest Exam date and time: 08/04/2020 1:56 AM Age: 80 years old Clinical indication: Prior surgery; Surgery type: Ptca; Patient HX: General weakness. History of afib and chf. TECHNIQUE: Imaging protocol: XR of the chest. Views: 1 view. COMPARISON: CR XR chest 1V portable [id number] 06/08/2020 6:39 PM FINDINGS: Lungs: The lungs are clear bilaterally. Pulmonary vasculature within normal limits. Pleural space: No visible pneumothorax or pleural effusion. Heart/Mediastinum: Cardiomediastinal silhouette contour within normal limits. Bones/joints: Moderate degenerative changes of the right glenohumeral joint. Status post left shoulder arthroplasty. XR/XR chest 1V portable [id number] IMPRESSION: 1. No radiographic findings of acute cardiopulmonary disease.
--- NOTE | 2020-08-04 01:57 | ED_ITS ---
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 He states his air conditioner went out states he felt like he got overheated. He states that he has been feeling weak and has had nausea since then. He states that he just continues to have the nausea and feeling unwell throughout the evening. He does have a heart history had stents placed recently. He denies any chest pain or pain anywhere. Associated symptoms: Denies chest pain, chills, dysuria, easy bruising, fever(s), nausea or vomiting Review of Systems Const: Denies: fever(s), chills, body aches or change in appetite Eyes: Denies: blurry vision or eye discomfort ENMT: Denies: throat pain or dental pain Card: Denies: chest pain Resp: Denies: dyspnea GI: Denies: abdominal pain, nausea, vomiting or diarrhea : Denies: dysuria Musc: Denies: neck pain or back pain Skin/Breast: Denies: rash Neuro: Reports: weakness in extremities Psych: Denies: depression Britton/Lymph: Denies: easy bruising All/Imm: Denies: urticaria PFSH ED PFSH: Medical History (Updated 08/04/20 @ 03:02 by Ly Alvarez MD) 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 LV systolic function is moderately reduced with EF of 35 to 40%. There is severe hypokinesis of anterior and apical peña. Diastolic function is indeterminate because of atrial fibrillation. There is mild to moderate mitral regurgitation. Mild aortic regurgitation is seen. Mild pulmonic regurgitation is present. RVSP is 45 to 50 mmHg consistent with moderate pulmonary hypertension. Compared to prior study from 06/30/2018, LV systolic function is now further decreased to 35 to 40%. Atrial fibrillation Benign essential hypertension with target blood pressure below 140/90 Congestive heart failure Dyslipidemia (high LDL; low HDL) Essential (primary) hypertension GERD (gastroesophageal reflux disease) Gout Hiatal hernia Hx of angiography Ischemic cardiomyopathy Mitral valve regurgitation Osteoarthritis Surgical History History of appendectomy History of carpal tunnel release History of hemorrhoidectomy History of inguinal hernia repair History of left hip replacement History of left shoulder replacement History of prostatectomy S/P PTCA (percutaneous transluminal coronary angioplasty) Family History Brother CAD (coronary artery disease) Diabetes Heart disease Father CAD (coronary artery disease) Heart disease Sister CAD (coronary artery disease) Cancer Diabetes Heart disease Mother Diabetes Stroke Grandmother Diabetes Denies family history of Clotting disorder Dementia Chronic kidney disease (CKD) Suicide Anesthesia complication Bleeding disorder Lung disease Social History Smoking and tobacco status: former smoker Alcohol intake: never History of recent travel: No Physical Exam Const: COMMON NORMALS: no acute distress, patient oriented x3 and healthy appearing HENMT: COMMON NORMALS: normocephalic and atraumatic HEAD & SCALP: normocephalic and atraumatic Eye: COMMON NORMALS: Equal, round and reactive pupils present and EOMs intact bilaterally PUPIL: Yes Equal, round and reactive pupils present Neck/C-Spine: COMMON NORMALS: full ROM and supple Chest: COMMONS NORMALS: normal inspection of the chest and normal palpation of entire chest wall Resp: COMMON NORMALS: normal respiratory effort, No retractions, No use of accessory muscles and clear to auscultation bilaterally AUSCULTATION: clear to auscultation bilaterally Cardio: COMMON NORMALS: regular rate, regular rhythm and No murmurs present (Cardio) RATE: regular rate RHYTHM: regular rhythm GI: COMMON NORMALS: Normal to inspection, nondistended, normoactive bowel sounds present, Soft to palpation, non-tender and no masses PALPATION: Yes Soft to palpation Extremity: COMMON NORMALS: normal to inspection and full ROM Neuro: COMMON NORMALS: patient oriented x3, moves all extremities and no focal motor deficits Psych: COMMON NORMALS: mental status grossly normal, Normal thought process present and cooperative THOUGHT PROCESS: Normal thought process present Skin: COMMON NORMALS: no rashes or lesions noted and no wounds GENERAL SKIN EXAM: no rashes or lesions noted Course Vital Signs: Vital signs: Vital Signs Temperature 97.6 F 08/04/20 01:54 Pulse Rate 68 08/04/20 01:54 Respiratory Rate 18 08/04/20 01:54 Blood Pressure 117/74 08/04/20 01:54 Pulse Oximetry 97 08/04/20 01:54 MDM - Weakness MDM Narrative: Medical decision making narrative: Patient presents here with acute kidney injury from heat exposure. He does have an elevated creatinine he re at 4.4 and has hyperkalemia 6.6. I believe his creatinine is likely due to the heat exposure. Patient given IV fluids here along with insulin D50 to treat his hyperkalemia. He has no EKG changes. Lab Data: Labs: Lab Results 08/04/20 08/04/20 Range/Units 01:50 01:50 WBC 11.1 H (4.0-10.0) 10^3/ uL RBC 4.75 (4.1-5.3) 10^6/u L Hgb 14.3 (11.7-16.6) g/dL Hct 42.8 (42.0-52.0) % MCV 90.1 (80-94) fL MCH 30.1 (28.0-34.0) pg MCHC 33.4 (30.0-36.0) g/dL RDW 15.2 H (12.1-15.1) % Plt Count 219 (130-400) 10^3/c mm MPV 10.8 H (7.4-10.4) fL Neut % (Auto) 74.7 % Lymph % (Auto) 18.5 % [place] % (Auto) 5.1 % Eos % (Auto) 0.5 % Baso % (Auto) 0.4 % Neut # (Auto) 8.31 H (1.8-7.7) 10^3/u L Lymph # (Auto) 2.1 (0.8-4.8) 10^3/u L [place] # (Auto) 0.6 (0.2-0.9) 10^3/u L Eos # (Auto) 0.1 (0.0-0.8) 10^3/u L Baso # (Auto) 0.0 (0.0-0.1) 10^3/u L Nucleated RBC % (a uto) 0 % Nucleated RBCs # 0.0 /100WBC Sodium 135 L (136-145) mmol/L Potassium 6.6 H* (3.5-5.1) mmol/L Chloride 96 L (98-107) mmol/L Carbon Dioxide 23 (22-29) mmol/L Anion Gap 22.6 H (5-19) BUN 66 H (8-23) mg/dL Creatinine 4.4 H (0.7-1.2) mg/dL GFR Calculation Not Reportable Glucose 165 H (65-115) mg/dL Calculated Osmolal ity 303 H (285-295) mOsm/k g Calcium 9.6 (8.5-10.5) mg/dL Total Bilirubin 0.6 (0.15-1.2) mg/dL AST 28 (0-40) U/L ALT 21 (0-41) U/L Alkaline Phosphata se 102 (40-130) IU/L Total Protein 7.4 (6.6-8.7) g/dL Albumin 4.3 (3.5-5.2) g/dL Globulin 3.1 (1.3-4.6) g/dL Imaging Data^: CXR: Attestation: I personally reviewed and interpreted this imaging study as follows: Radiologist's impression: no acute abnormality EKG Data^: EKG 1: Attestation: I personally reviewed and interpreted this EKG as follows: EKG interpretation date: 08/04/20 EKG interpretation time: 02:02 Interpretation: Atrial fib rate [address] or T wave abnormalities QRS 130 QTC 443 unchanged from previous. Discharge Plan Discharge Patient Disposition: Admitted As Inpatient Admit Provider: Ly Alvarez Clinical Impression: Acute kidney injury, Acute hyperkalemia, Heat exposure Condition: Stable Coding Level of Care Code ED [employer] for [employer] Fwd Exam Comprehensive
[2020-08-04 02:04] LABS: Basophils % 0.4 %; Eosinophils # 0.1 10^3/uL (0.0-0.8); Eosinophils % 0.5 %; Hematocrit 42.8 % (42.0-52.0); Hemoglobin 14.3 g/dL (11.7-16.6); Lymphocytes # 2.1 10^3/uL (0.8-4.8); Lymphocytes % 18.5 %; Mean Corpuscular HGB Conc 33.4 g/dL (30.0-36.0); Mean Corpuscular Hemoglobin 30.1 pg (28.0-34.0); Mean Corpuscular Volume 90.1 fL (80-94); Mean Platelet Volume 10.8 fL (7.4-10.4); Monocytes # 0.6 10^3/uL (0.2-0.9); Monocytes % 5.1 %; Neutrophils # 8.31 10^3/uL (1.8-7.7); Neutrophils % 74.7 %; Nucleated Red Blood Cells % 0 %; Platelet Count 219 10^3/cmm (130-400); Red Blood Count 4.75 10^6/uL (4.1-5.3); Red Cell Distribution Width 15.2 % (12.1-15.1); White Blood Count 11.1 10^3/uL (4.0-10.0)
[2020-08-04] MEDS: sodium chloride 0.9% 1,000 ML 999 ML IV (02:06)
[2020-08-04] MEDS: ondansetron 2 mg/ML SDV 2 mL 4 MG IVP (02:06)
[2020-08-04 02:20] LABS: Alanine Aminotransferase 21 U/L (0-41); Albumin Level 4.3 g/dL (3.5-5.2); Alkaline Phosphatase 102 IU/L (40-130); Anion Gap 22.6 (5-19); Aspartate Amino Transferase 28 U/L (0-40); Blood Urea Nitrogen 66 mg/dL (8-23); Calcium 9.6 mg/dL (8.5-10.5); Carbon Dioxide 23 mmol/L (22-29); Chloride 96 mmol/L (98-107); Globulin 3.1 g/dL (1.3-4.6); Glucose 165 mg/dL (65-115); Osmolality Calculated 303 mOsm/kg (285-295); Sodium 135 mmol/L (136-145); Total Bilirubin 0.6 mg/dL (0.15-1.2); Total Protein 7.4 g/dL (6.6-8.7)
[2020-08-04 02:22] LABS: Potassium 6.6 mmol/L (3.5-5.1)
[2020-08-04] MEDS: sodium chloride 0.9% 500 ML 999 ML IV (02:31)
[2020-08-04] MEDS: dextrose 50% syringe 50 mL IVP (02:32)
[2020-08-04] MEDS: insulin regular-human 100 units/1 mL 10 UNIT IVP (02:33)
--- NOTE | 2020-08-04 03:00 | PM.HP ---
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 For the last couple of days he has been prepping his hay for baling. He has been outside in the warmer weather in his tractor. The air conditioner in his tractor broke yesterday so he has not been able to get his school as he usually does. He has been drinking water. Says that he was sweating so much that he had to go into the house to change close 3 or 4 times a day. He also started hurting all over. He has chronic pain but everything was just more pronounced. He took a hydrocodone which he has not taken in a while by his report and attributed that to what was causing his problems. The weakness and the nausea got so bad he came in for evaluation. He was actually found to have a potassium of 6.6 and a creatinine of 4.4. A few weeks ago creatinine was 1.5. He is on multiple medications that can have renal toxicity including meloxicam, JAMEEL inhibitor, Aldactone and Lasix. He is also on supplemental potassium. Review of clinic notes reveals that Dr. Sherman had planned on trying to start him on Entresto however he states that the medication never arrived. He did take all of his medications on the . He received IV fluids in the emergency room and is being admitted for further evaluation and treatment. It should be noted that he has known ischemic cardiomyopathy with an ejection fraction at 35%. 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 He does admit to shortness of breath with exertion. Denies recent chest pain. Not currently complaining of being short of breath. Review of Systems Const: Reports: body aches, change in appetite, change in weight, malaise and diaphoresis; Denies: fever(s) or chills Eyes: Denies: change in vision ENMT: Denies: throat pain or nasal congestion Card: Reports: lightheadedness and dyspnea on exertion; Denies: chest pain, palpitations or edema Resp: Denies: productive cough, non-productive cough or wheezing GI: Reports: nausea; Denies: abdominal pain, vomiting, diarrhea, constipation, hematochezia or melena : Denies: hematuria Musc: Reports: back pain, extremity pain, joint pain, muscle cramps and muscle weakness; Denies: joint swelling or joint redness Skin/Breast: Denies: rash, pruritus or sores Neuro: Reports: weakness in extremities and difficulty walking; Denies: headache(s) or numbness in extremities Psych: Denies: anxiety or depression Britton/Lymph: Reports: easy bruising Medications/Allergies Home Medications Medication Instructions Recorded Confirmed Last Taken Type polyethylene glycol 3350 [Miralax] 17 gm PO DAILY@1700 02/29/20 07/19/20 06/08/20 History ascorbic acid (vitamin C) 500 mg 500 mg PO BID@,03/08/20 07/19/20 06/08/20 History tablet,extended release omega-3 fatty acids 1,000 mg 1,000 mg PO DAILY@07 03/08/20 07/19/20 06/08/20 History capsule brimonidine 1 drp OPHTHALMIC (EYE) BID@,05/02/20 07/19/20 06/08/20 History latanoprost 1 drp OPHTHALMIC (EYE) BID@,05/02/20 07/19/20 06/08/20 History omeprazole 20 mg PO BID@,05/02/20 07/19/20 06/08/20 History vitamin E 400 unit PO DAILY@06 05/02/20 07/19/20 06/08/20 History CPAP #1 ea 05/07/20 07/19/20 Unknown Rx allopurinol 300 mg tablet 300 mg PO DAILY@0600 #90 tab 06/12/20 07/19/20 Unknown Rx meloxicam 15 mg tablet 15 mg PO DAILY@0600 #90 tab 06/12/20 07/19/20 Unknown Rx apixaban 5 mg tablet 5 mg PO BID@17 #180 tab 07/05/20 07/19/20 Unknown Rx atorvastatin 80 mg tablet 80 mg PO DAILY@1700 #90 tab 07/05/20 07/19/20 Unknown Rx clopidogrel 75 mg tablet 75 mg PO DAILY@0600 #90 tab 07/05/20 07/19/20 Unknown Rx diltiazem HCl 120 mg 120 mg PO BID@,17 #180 cap 07/05/20 07/19/20 Unknown Rx capsule,extended release 12 hr ezetimibe 10 mg tablet 10 mg PO DAILY@0600 #90 tab 07/05/20 07/19/20 Unknown Rx furosemide 40 mg tablet 60 mg PO BID@06,17 #270 tab 07/05/20 07/19/20 Unknown Rx isosorbide mononitrate 60 mg 60 mg PO DAILY@0600 #90 tab 07/05/20 07/19/20 Unknown Rx tablet,extended release 24 hr metoprolol tartrate 50 mg tablet 50 mg PO BID@0600,1700 #180 tab 07/05/20 07/19/20 Unknown Rx nitroglycerin 0.4 mg sublingual 0.4 mg SUBLINGUAL Q5M PRN #100 tab 07/05/20 07/19/20 Unknown Rx tablet spironolactone 25 mg tablet 25 mg PO DAILY@0600 #90 tab 07/05/20 07/19/20 Unknown Rx fentanyl 50 mcg/hr transdermal 1 patch TOPICAL Q72H 30 Days #10 07/19/20 07/19/20 Unknown Rx patch each hydrocodone 5 mg-acetaminophen 325 1 tab PO Q8H PRN 30 Days #30 tab 07/19/20 07/19/20 Unknown Rx mg tablet potassium chloride 20 mEq 20 meq PO DAILY #90 tab 07/24/20 Unknown Rx tablet,extended release Allergies Allergy/AdvReac Type Severity Reaction Status Date / Time No Known Allergies Allergy Verified 07/19/20 14:29 Additional Medication Information I personally reviewed home medication list and medications received day of admission thus far. 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 LV systolic function is moderately reduced with EF of 35 to 40%. There is severe hypokinesis of anterior and apical peña. Diastolic function is indeterminate because of atrial fibrillation. There is mild to moderate mitral regurgitation. Mild aortic regurgitation is seen. Mild pulmonic regurgitation is present. RVSP is 45 to 50 mmHg consistent with moderate pulmonary hypertension. Compared to prior study from 06/30/2018, LV systolic function is now further decreased to 35 to 40%. Atrial fibrillation Benign essential hypertension with target blood pressure below 140/90 Congestive heart failure Dyslipidemia (high LDL; low HDL) Essential (primary) hypertension GERD (gastroesophageal reflux disease) Gout Hiatal hernia Hx of angiography Ischemic cardiomyopathy Mitral valve regurgitation Osteoarthritis Surgical History History of appendectomy History of carpal tunnel release History of hemorrhoidectomy History of inguinal hernia repair History of left hip replacement History of left shoulder replacement History of prostatectomy S/P PTCA (percutaneous transluminal coronary angioplasty) Family History Brother CAD (coronary artery disease) Diabetes Heart disease Father CAD (coronary artery disease) Heart disease Sister CAD (coronary artery disease) Cancer Diabetes Heart disease Mother Diabetes Stroke Grandmother Diabetes Denies family history of Clotting disorder Dementia Chronic kidney disease (CKD) Suicide Anesthesia complication Bleeding disorder Lung disease Social History Smoking and tobacco status: former smoker Alcohol intake: never History of recent travel: No Vitals/I&O/Wt Last Vital Signs Temp 97.6 F 08/04/20 01:54 Pulse 68 08/04/20 01:54 Resp 18 08/04/20 01:54 BP 117/74 08/04/20 01:54 Pulse Ox 97 08/04/20 01:54 08/03/20 08/03/20 08/04/20 14:59 22:59 06:59 Intake Total 1000 / 1000 Balance 1000 / 1000 Weight last 48 hrs Weight 63.503 kg Physical Exam Narrative: EXAM NARRATIVE: Constitutional: Awake and alert. 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 Data : 08/04/20 01:50 08/04/20 07:56 Other data: Laboratory Results WBC 11.1 10^3/uL (4.0-10.0) H 08/04/20 01:50 RBC 4.75 10^6/uL (4.1-5.3) 08/04/20 01:50 Hgb 14.3 g/dL (11.7-16.6) 08/04/20 01:50 Hct 42.8 % (42.0-52.0) 08/04/20 01:50 MCV 90.1 fL (80-94) 08/04/20 01:50 MCH 30.1 pg (28.0-34.0) 08/04/20 01:50 MCHC 33.4 g/dL (30.0-36.0) 08/04/20 01:50 RDW 15.2 % (12.1-15.1) H 08/04/20 01:50 Plt Count 219 10^3/cmm (130-400) 08/04/20 01:50 MPV 10.8 fL (7.4-10.4) H 08/04/20 01:50 Neut % (Auto) 74.7 % 08/04/20 01:50 Lymph % (Auto) 18.5 % 08/04/20 01:50 [place] % (Auto) 5.1 % 08/04/20 01:50 Eos % (Auto) 0.5 % 08/04/20 01:50 Baso % (Auto) 0.4 % 08/04/20 01:50 Neut # (Auto) 8.31 10^3/uL (1.8-7.7) H 08/04/20 01:50 Lymph # (Auto) 2.1 10^3/uL (0.8-4.8) 08/04/20 01:50 [place] # (Auto) 0.6 10^3/uL (0.2-0.9) 08/04/20 01:50 Eos # (Auto) 0.1 10^3/uL (0.0-0.8) 08/04/20 01:50 Baso # (Auto) 0.0 10^3/uL (0.0-0.1) 08/04/20 01:50 Nucleated RBC % (auto) 0 % 08/04/20 01:50 Nucleated RBCs # 0.0 /100WBC 08/04/20 01:50 Sodium 135 mmol/L (136-145) L 08/04/20 01:50 Potassium 6.6 mmol/L (3.5-5.1) H* 08/04/20 01:50 Chloride 96 mmol/L (98-107) L 08/04/20 01:50 Carbon Dioxide 23 mmol/L (22-29) 08/04/20 01:50 Anion Gap 22.6 (5-19) H 08/04/20 01:50 BUN 66 mg/dL (8-23) H 08/04/20 01:50 Creatinine 4.4 mg/dL (0.7-1.2) H 08/04/20 01:50 GFR Calculation Not Reportable 08/04/20 01:50 Glucose 165 mg/dL (65-115) H 08/04/20 01:50 Calculated Osmolality 303 mOsm/kg (285-295) H 08/04/20 01:50 Calcium 9.6 mg/dL (8.5-10.5) 08/04/20 01:50 Total Bilirubin 0.6 mg/dL (0.15-1.2) 08/04/20 01:50 AST 28 U/L (0-40) 08/04/20 01:50 ALT 21 U/L (0-41) 08/04/20 01:50 Alkaline Phosphatase 102 IU/L (40-130) 08/04/20 01:50 Creatine Kinase 373 U/L (39-308) H* 08/04/20 01:50 Total Protein 7.4 g/dL (6.6-8.7) 08/04/20 01:50 Albumin 4.3 g/dL (3.5-5.2) 08/04/20 01:50 Globulin 3.1 g/dL (1.3-4.6) 08/04/20 01:50 Impressions Chest X-Ray 08/04/20 01:56 IMPRESSION: 1. No radiographic findings of acute cardiopulmonary disease. Prior or outside records reviewed: recent clinic notes reviewed A&P Assessment and plan (1) Acute kidney injury: Combination of heat exhaustion/excessive fluid losses/dehydration and multiple medications that can contribute to nephrotoxicity Status: Acute (2) Hyperkalemia: Secondary to above and medications Status: Acute (3) Congestive heart failure: Ejection fraction 35% Status: Chronic Qualifiers: Heart failure chronicity: acute on chronic Heart failure type: unspecified Qualified Code(s): I50.9 - Heart failure, unspecified (4) Atrial fibrillation: Rate controlled Status: Chronic Qualifiers: Atrial fibrillation type: persistent (not longstanding) Qualified Code(s): I48.19 - Other persistent atrial fibrillation (5) Chronic anticoagulation: On Eliquis Status: Chronic (6) Benign essential hypertension with target blood pressure below 140/90: Currently with low blood pressures Status: Chronic (7) Atherosclerotic heart disease [place] coronary artery w/angina pectoris: Not acute Status: Chronic Qualifiers: [place] vs. transplanted heart: [place] heart Qualified Code(s): I25.119 - Atherosclerotic heart disease of [place] coronary artery with unspecified angina pectoris (8) Chronic pain disorder: On fentanyl patch and hydrocodone as needed Status: Chronic (9) VISHNU (obstructive sleep apnea): On CPAP Status: Chronic Additional A&P Information Hyperglycemia without known diabetes Inpatient admission Hold renal toxic medications -Lasix, spironolactone, potassium, meloxicam and lisinopril Low volume IVFs Recheck BMP after fluids administered in ED Watch volume status closely Need urine for urinalysis [place] if patient unable to urinate soon Renal US Continue half home dose of metoprolol and isosorbide Home diltiazem is held Hold statin secondary to elevation in CK level and potential for worsening Continue Plavix Change allopurinol to 100 mg presently Renal dose Eliquis CPAP with sleep Simply monitor blood sugars for now Home fentanyl chronic pain Supportive care otherwise DVT prophylaxis: half home dose of eliquis Plans, findings and concerns discussed with patient and he was given an opportunity to ask questions. 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 Once explained however he is agreeable to plan of care. Anticipated Disposition: Home Code Status: Full code Attestations Medical Necessity Statement*: Anticipated stay greater than two midnights in this patient who has acute kidney injury and hyperkalemia from heat exposure, dehydration and medications. Multiple chronic medicines are having to be held presently. He is receiving IV fluids and will require serial laboratory studies to ensure continued improvement in renal function. Without his usual medications and in the setting of acute kidney injury, at significant risk of acute cardiovascular event and loss of the functionality that has kept performing above what might be expected from his list of chronic medical problems. Coding Level of Care Code Acute Ac/Dc Rewinder for Margaret Dinero Diagnoses Acute kidney injury N17.9 Hyperkalemia E87.5 Congestive heart failure I50.9 Heart failure chronicity: acute on chronic Heart failure type: unspecified Atrial fibrillation I48.19 Atrial fibrillation type: persistent (not longstanding) Chronic anticoagulation Z79.01 Benign essential hypertension with target blood pressure below 140/90 I10 Atherosclerotic heart disease [place] coronary artery w/angina pectoris I25.119 [place] vs. transplanted heart: [place] heart Chronic pain disorder G89.4 VISHNU (obstructive sleep apnea) G47.33
[2020-08-04 03:10] LABS: Creatine Phosphokinase 373 U/L (39-308)
--- NOTE | 2020-08-04 06:14 | USR_ITS ---
PROCEDURE INFORMATION: Exam: US Retroperitoneal; Complete; Kidneys and Bladder Exam date and time: 08/04/2020 6:14 AM Age: 80 years old Clinical indication: Abnormal findings; Abnormal lab test; Abnormal kidney function lab tests; Additional info: Acute kidney injury TECHNIQUE: Imaging protocol: Real-time ultrasound of the retroperitoneum with image documentation. Complete exam focused on the kidneys and bladder. COMPARISON: No relevant prior studies available. FINDINGS: Right kidney: Normal. No stones. No hydronephrosis. 10 cm x 4.2 cm x 4.9 cm Left kidney: There are 3 benign cyst No stones. No hydronephrosis. 3.7 cm x 3.3 cm x 3.2 cm, 1.1 cm x 1 cm x 0.9 cm, 3.2 cm x 2.7 cm x 3 cm. The left kidney measures 9.6 cm x 1.2 cm by 5.4 cm Urinary bladder: Unremarkable. No intrinsic mass lesions are documented. The ureteral jets are not visible. Prostate gland has been resected 40 years ago. A circumscribed hypoechoic mass is seen in the projection of the prostate fossa measuring 4.9 cm x 3.9 cm x 3.9 cm. The posterior borders of this finding are indistinct . The potential for this finding representing a tumor cannot be completely ruled out. Additional evaluation with CT examination of the abdomen and pelvis with intravenous contrast is recommended. Incidentally noted is a large gallstone within the gallbladder measuring 2.6 cm showing posterior shadowing. Gallbladder wall is thickened measuring 4.8 mm. No pericholecystic fluid is seen US/US renal BI* [id number] IMPRESSION: 1. Hypoechoic solid mass posterior to the urinary bladder rule out tumor 2. Multiple benign left renal cyst 3. Negative right kidney 4. Large gallstone with gallbladder wall thickening
[2020-08-04] MEDS: sodium chloride 0.9% 1,000 ML 50 ML IV (07:59)
[2020-08-04 08:20] LABS: Anion Gap 16.3 (5-19); Blood Urea Nitrogen 64 mg/dL (8-23); Calcium 9.2 mg/dL (8.5-10.5); Carbon Dioxide 25 mmol/L (22-29); Chloride 100 mmol/L (98-107); Glucose 91 mg/dL (65-115); Osmolality Calculated 300 mOsm/kg (285-295); Potassium 5.3 mmol/L (3.5-5.1); Sodium 136 mmol/L (136-145)
--- NOTE | 2020-08-04 08:23 | ECG_ITS ---
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 Measurements Intervals [place] Rate: 95 P: MS: QRS: -68 QRSD: 101 T: 86 QT: 353 QTc: 446 Interpretive Statements ATRIAL FIBRILLATION ANTERIOR MYOCARDIAL INFARCTION [40+ ms Q WAVE AND/OR ST/T ABNORMALITY IN V3/V4], OF INDETERMINATE AGE INFERIOR MYOCARDIAL INFARCTION [40+ ms Q WAVE AND/OR ST/T ABNORMALITY IN II/aVF], PROBABLY OLD Compared to ECG 08/04/2020 02:02:38 Atrial flutter no longer present Left anterior fascicular block no longer present Myocardial infarct finding still present Electronically Signed On 08-06-2020 23:10:39 CDT by Florence Suarez M.D. [id number]
[2020-08-04] MEDS: fentaNYL 50 mcg Patch 1 PATCH TRANSDERMA (10:16)
[2020-08-04] MEDS: allopurinol 100 mg Tablet PO (10:17)
[2020-08-04] MEDS: isosorbide mononitrate ER 30 mg Tablet PO (10:18)
[2020-08-04 12:11] LABS: Add Urine Microscopic? NO; Charge for UA Resulting for Rev
[2020-08-04 12:14] LABS: Bilirubin Urine Neg (Negative); Blood Urine Neg (Negative); Glucose Urine UA Norm (Normal); Ketones Urine Negative (Negative); Leukocyte Esterase Urine Negative (Negative); Nitrate Urine Negative (Negative); Protein Urine Neg (Negative); Specific Gravity, Urine 1.015 (1.005-1.030); Urine Appearance Clear (CLEAR); Urine Color Yellow (Yellow); Urobilinogen Urine Norm (Negative); pH Urine 5 (5-7)
[2020-08-04] MEDS: metoprolol tartrate 25 mg Tablet PO (17:41)
[2020-08-04] MEDS: pantoprazole DR 40 mg Tablet PO (17:41)
[2020-08-04] MEDS: apixaban 5 mg Tablet 2.5 MG PO (17:42)
[2020-08-04] MEDS: latanoprost 0.005% Op Soln 2.5 mL Btl 1 DROP EYE-BOTH (17:42)
[2020-08-04] MEDS: brimonidine 0.2% Op Soln 5 mL Btl 1 DROP EYE-BOTH (17:54)
--- NOTE | 2020-08-04 21:27 | PM.PN ---
Subjective Subjective: Interval history: He states he is feeling a bit better. Discussed with him improving kidney function, some improvement in hyperkalemia. Discussed with him results of renal ultrasound with finding of hypoechoic solid mass posterior to the urinary bladder with suspected tumor/prostate cancer. He states has been taking stool softeners and has not had issues with bowel movements. He had colonoscopy 3-4 years ago. Has history of prostate cancer and prostatectomy 30 years ago. Discussed also gallstone and gallbladder wall thickening. He denies any symptoms currently. Gets occasional twinge of pain once in a while in right upper quadrant. Vitals/I&O/Wt Last Vital Signs Temp 97.9 F 08/04/20 20:00 Pulse 89 08/04/20 20:00 Resp 18 08/04/20 20:00 BP 100/63 08/04/20 20:00 Pulse Ox 97 08/04/20 20:00 08/04/20 08/04/20 08/04/20 06:59 14:59 22:59 Intake Total 1500 / 1500 575 / 575 360 / 935 Output Total 510 / 510 Balance 1500 / 1500 65 / 65 360 / 425 Weight last 48 hrs Weight 63.503 kg Physical Exam Const: COMMON NORMALS: no acute distress and patient oriented x3 OTHER: Pleasant, conversant. HENMT: COMMON NORMALS: oropharynx normal Neck/C-Spine: COMMON NORMALS: no JVD Resp: COMMON NORMALS: normal respiratory effort and clear to auscultation bilaterally AUSCULTATION: clear to auscultation bilaterally Cardio: COMMON NORMALS: no JVD, regular rhythm, S1 normal heart sound present, S2 normal heart sound present and No murmurs present (Cardio) RHYTHM: regular rhythm HEART SOUNDS: S1 normal heart sound present and S2 normal heart sound present GI: COMMON NORMALS: Normal to inspection, nondistended, normoactive bowel sounds present, Soft to palpation and non-tender PALPATION: Yes Soft to palpation Extremity: COMMON NORMALS: no joint enlargement and no pedal edema Neuro: COMMON NORMALS: patient oriented x3 and moves all extremities Skin: COMMON NORMALS: no rashes or lesions noted GENERAL SKIN EXAM: no rashes or lesions noted Data : 08/04/20 01:50 08/04/20 07:56 A&P Assessment and plan (1) Acute kidney injury: Stage III MYRON. Showing improvement gradually, creatinine down to 3.8. Hyperkalemia with mild improvement to 5.3. Continue IV fluid challenge. Monitor volume status. Monitor renal function. Combination of heat exhaustion/excessive fluid losses/dehydration and multiple medications that can contribute to nephrotoxicity Would discontinue meloxicam. Continue to hold lisinopril, aspirin at home Status: Acute (2) Hyperkalemia: With mild improvement, continue to hold lisinopril, spironolactone. Continue fluid challenge. Change diet to low potassium. Status: Acute (3) Pelvic mass: Consider CT abdomen pelvis with contrast once renal function improves. Consider follow-up colonoscopy, although the origin of the mass at this time is not clear. It is posterior to the urinary bladder. Has history of prostate cancer with prostatectomy 30 years ago. Reports had colonoscopy 3-4 years ago. Status: Acute (4) Congestive heart failure: Ejection fraction 35%. Currently compensated. 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 transplanted heart: [place] heart Qualified Code(s): I25.119 - Atherosclerotic heart disease of [place] coronary artery with unspecified angina pectoris (9) Chronic pain disorder: On fentanyl patch and hydrocodone as needed Status: Chronic (10) VISHNU (obstructive sleep apnea): On CPAP Status: Chronic (11) Cholelithiasis: Incidentally noted Status: Acute (12) Thickening of wall of gallbladder: Discussed with him consideration of possibility of chronic cholecystitis, although less likely as his not having any pain currently, liver parameters normal. Reports occasional twinge of discomfort once in a while. Discussed with him continued monitoring with primary provider, consideration of referral to surgery for cholecystectomy in case of symptoms. Status: Acute Attestations Medical Necessity Statement*: Continue admission for assessment management of stage III acute kidney injury, IV fluid challenge, hyperkalemia. Coding Level of Care Code Acute Triage Registered Nurse for [facility] Fwd Diagnoses Acute kidney injury N17.9 Hyperkalemia E87.5 Pelvic mass R19.00 Congestive heart failure I50.9 Heart failure type: unspecified Heart failure chronicity: acute on chronic Atrial fibrillation I48.19 Atrial fibrillation type: persistent (not longstanding) Chronic anticoagulation Z79.01 Benign essential hypertension with target blood pressure below 140/90 I10 Atherosclerotic heart disease [place] coronary artery w/angina pectoris I25.119 [place] vs. transplanted heart: [place] heart Chronic pain disorder G89.4 VISHNU (obstructive sleep apnea) G47.33 Cholelithiasis K80.20 Thickening of wall of gallbladder K82.8
[2020-08-04] MEDS: polyethylene glycol 3350 Pkt 17 gm PO (22:01)
[2020-08-05] VITALS (8 sets, daily range): BP systolic 97–124; BP diastolic 65–84; PULSE 84–118; RESP 12–20; TEMP 36.5–36.9; O2SAT 91–98
[2020-08-05] MEDS: sodium chloride 0.9% 1,000 ML 50 ML IV ×2 (01:56→21:40)
[2020-08-05 05:45] LABS: Basophils # 0.1 10^3/uL (0.0-0.1); Basophils % 0.6 %; Eosinophils # 0.2 10^3/uL (0.0-0.8); Eosinophils % 1.7 %; Hematocrit 42.2 % (42.0-52.0); Hemoglobin 13.8 g/dL (11.7-16.6); Lymphocytes # 2.3 10^3/uL (0.8-4.8); Lymphocytes % 23.1 %; Mean Corpuscular HGB Conc 32.7 g/dL (30.0-36.0); Mean Corpuscular Hemoglobin 30.1 pg (28.0-34.0); Mean Corpuscular Volume 91.9 fL (80-94); Mean Platelet Volume 10.9 fL (7.4-10.4); Monocytes # 0.6 10^3/uL (0.2-0.9); Monocytes % 5.9 %; Neutrophils # 6.66 10^3/uL (1.8-7.7); Neutrophils % 68.4 %; Nucleated Red Blood Cells % 0 %; Platelet Count 187 10^3/cmm (130-400); Red Blood Count 4.59 10^6/uL (4.1-5.3); Red Cell Distribution Width 15.2 % (12.1-15.1); White Blood Count 9.7 10^3/uL (4.0-10.0)
[2020-08-05] MEDS: latanoprost 0.005% Op Soln 2.5 mL Btl 1 DROP EYE-BOTH ×2 (05:59→17:29)
[2020-08-05] MEDS: apixaban 5 mg Tablet 2.5 MG PO ×2 (06:01→17:28)
[2020-08-05] MEDS: clopidogrel 75 mg Tablet PO (06:02)
[2020-08-05] MEDS: pantoprazole DR 40 mg Tablet PO ×2 (06:03→17:28)
[2020-08-05] MEDS: ezetimibe 10 mg Tablet PO (06:03)
[2020-08-05] MEDS: metoprolol tartrate 25 mg Tablet PO ×2 (06:03→17:28)
[2020-08-05] MEDS: brimonidine 0.2% Op Soln 5 mL Btl 1 DROP EYE-BOTH ×2 (06:04→17:31)
[2020-08-05 06:05] LABS: Anion Gap 11.3 (5-19); Blood Urea Nitrogen 54 mg/dL (8-23); Calcium 9.3 mg/dL (8.5-10.5); Carbon Dioxide 27 mmol/L (22-29); Chloride 100 mmol/L (98-107); Creatine Phosphokinase 188 U/L (39-308); Glucose 95 mg/dL (65-115); Magnesium 2.1 mg/dL (1.7-2.3); Osmolality Calculated 291 mOsm/kg (285-295); Phosphorus 3.5 mg/dL (2.5-4.5); Potassium 5.3 mmol/L (3.5-5.1); Sodium 133 mmol/L (136-145)
[2020-08-05] MEDS: isosorbide mononitrate ER 30 mg Tablet PO (08:43)
[2020-08-05] MEDS: allopurinol 100 mg Tablet PO (08:43)
--- NOTE | 2020-08-05 11:22 | CTR_ITS ---
PROCEDURE INFORMATION: Exam: CT Abdomen And Pelvis Without Contrast Exam date and time: 08/05/2020 11:22 AM Age: 80 years old Clinical indication: Abnormal findings; Abnormal radiologic finding of the abdomen; Prior surgery; Surgery date: 6+ months; Surgery type: Prostate, hip, hernia, appy; Patient HX: ? Mass posterior to bladder on u/s; Additional info: Mass, poserior to bladder TECHNIQUE: Imaging protocol: Computed tomography of the abdomen and pelvis without contrast. Radiation optimization: All CT scans at this facility use at least one of these dose optimization techniques: automated exposure control; mA and/or kV adjustment per patient size (includes targeted exams where dose is matched to clinical indication); or iterative reconstruction. COMPARISON: CT pelvis wo con [id number] 11/19/2013 10:30 AM RADIATION DOSE METRICS: Total DLP (mGy-cm): 1171.26 FINDINGS: Liver: Normal. No mass. Gallbladder and bile ducts: There is a calcified stone in the gallbladder. Pancreas: Normal. No ductal dilation. Spleen: Normal. No splenomegaly. Adrenal glands: Normal. No mass. Kidneys and ureters: There are well-circumscribed homogeneously hyperintense exophytic lesions off the left kidney the larger of which measures 4.0 cm. These cannot be further characterized without IV contrast. Stomach and bowel: The stomach is filled with debris. Colonic constipation is present. There is diverticulosis of the colon without evidence of diverticulitis. Appendix: There has been an appendectomy. Intraperitoneal space: Unremarkable. No free air. No significant fluid collection. Vasculature: Calcified plaque is present within multiple vascular structures. Lymph nodes: Unremarkable. No enlarged lymph nodes. Urinary bladder: The bladder is obscured by artifact from the left total hip replacement hardware. A mass is not visualized posterior to the bladder however this region is obscured by artifact as well. Reproductive: There are prostatectomy changes. Bones/joints: Status post left total hip replacement. Resultant artifact obscures adjacent structures. There are degenerative changes in the visualized spine. Mild lower lumbar levoscoliosis. There is partial osseous fusion across the sacroiliac joints. Soft tissues: Bilateral inguinal hernia repair changes are present. There are benign-appearing soft tissue calcifications. CT/CT abdomen pelvis wo con [id number] IMPRESSION: 1. Although no mass is seen posterior to the bladder, the bladder region is partially obscured by artifact from the left total hip replacement. 2. Colonic constipation is present. 3. Cholelithiasis. COMMENTS: Consistent with the [employer]'s Incidental Findings Committee white paper (J Am Roshni Radiol 2018): Any incidental renal lesion less than 1 cm or classified as too small to characterize, or any incidental cystic renal lesion characterized as simple-appearing, is likely benign. No follow-up imaging is recommended for these lesions per consensus recommendations based on imaging criteria. Radiation Dose CTDIVOL = (mGy): DLP = 1171.26 (mGy-cm)
[2020-08-05] MEDS: sodium polystyrene sulfonate 15 gm/60 mL Btl PO ×3 (11:30→21:01)
--- NOTE | 2020-08-05 16:52 | P.PN_ITS ---
Subjective Subjective: Interval history: No chestThis morning patient was seen, he tells me he is doing well, no muscle aches or pains, no joint pains, pain, no shortness of breath, he tells me that he has a history of prostate cancer treated with prostatectomy, denies a history of UTIs, denies a history of nephrolithiasis, Vitals/I&O/Wt Last Vital Signs Temp 98.3 F 08/05/20 16:00 Pulse 114 H 08/05/20 16:00 Resp 16 08/05/20 16:00 BP 113/77 08/05/20 16:00 Pulse Ox 95 08/05/20 16:00 08/05/20 08/05/20 08/05/20 06:59 14:59 22:59 Intake Total 897.5 / 1832.5 360 / 360 Output Total 600 / 1110 400 / 400 Balance 297.5 / 722.5 -40 / -40 Weight last 48 hrs Weight 67.585 kg Weight 63.503 kg Physical Exam Const: COMMON NORMALS: no acute distress and patient oriented x3 Resp: COMMON NORMALS: normal respiratory effort, No retractions, No use of accessory muscles and clear to auscultation bilaterally AUSCULTATION: clear to auscultation bilaterally Cardio: COMMON NORMALS: regular rate, regular rhythm, S1 normal heart sound present and S2 normal heart sound present RATE: regular rate RHYTHM: regular rhythm HEART SOUNDS: S1 normal heart sound present and S2 normal heart sound present GI: COMMON NORMALS: Normal to inspection, nondistended, normoactive bowel janet nds present, Soft to palpation, non-tender and No hepatosplenomegaly present PALPATION: Yes Soft to palpation and Yes No hepatosplenomegaly present Extremity: COMMON NORMALS: no pedal edema Neuro: COMMON NORMALS: patient oriented x3 Psych: COMMON NORMALS: mental status grossly normal Data : 08/05/20 05:20 08/05/20 05:20 A&P Assessment and plan (1) Acute kidney injury: Stage III MYRON. Showing improvement gradually, creatinine down to 2.7. Hyperkalemia with mild improvement to 5.3. Continue IV fluid challenge. Monitor volume status. Monitor renal function. Combination of heat exhaustion/excessive fluid losses/dehydration and multiple medications that can contribute to nephrotoxicity Would discontinue meloxicam. Continue to hold lisinopril, aspirin at home Status: Acute (2) Hyperkalemia: With mild improvement, continue to hold lisinopril, spironolactone. Continue fluid challenge. Change diet to low potassium. Start Kayexalate, potassium 5.3 Status: Acute (3) Pelvic mass: CT scan abdomen pelvis ordered s. Consider follow-up colonoscopy, although the origin of the mass at this time is not clear. It is posterior to the urinary bladder. Has history of prostate cancer with prostatectomy 30 years ago. Reports had colonoscopy 3-4 years ago. Status: Acute (4) Congestive heart failure: Ejection fraction 35%. Currently compensated. Status: Chronic Qualifiers: Heart failure type: unspecified Heart failure chronicity: acute on chronic Qualified Code(s): I50.9 - Heart failure, unspecified (5) Atrial fibrillation: Rate controlled Status: Chronic Qualifiers: Atrial fibrillation type: persistent (not longstanding) Qualified Code(s): I48.19 - Other persistent atrial fibrillation (6) Chronic anticoagulation: On Eliquis Status: Chronic (7) Benign essential hypertension with target blood pressure below 140/90: Currently with low blood pressures Status: Chronic (8) Atherosclerotic heart disease [place] coronary artery w/angina pectoris: Not acute Status: Chronic Qualifiers: [place] vs. transplanted heart: [place] heart Qualified Code(s): I25.119 - Atherosclerotic heart disease of [place] coronary artery with unspecified angina pectoris (9) Chronic pain disorder: On fentanyl patch and hydrocodone as needed Status: Chronic (10) VISHNU (obstructive sleep apnea): On CPAP Status: Chronic (11) Cholelithiasis: Incidentally noted Status: Acute (12) Thickening of wall of gallbladder: Discussed with him consideration of possibility of chronic cholecystitis, although less likely as his not having any pain currently, liver parameters normal. Reports occasional twinge of discomfort once in a while. Discussed with him continued monitoring with primary provider, consideration of referral to surgery for cholecystectomy in case of symptoms. Status: Acute Additional A&P Information Inpatient admission Hold renal toxic medications -Lasix, spironolactone, potassium, meloxicam and lisinopril Low volume IVFs Watch volume status closely Continue half home dose of metoprolol and isosorbide Home diltiazem is held Hold statin secondary to elevation in CK level and potential for worsening Continue Plavix Change allopurinol to 100 mg presently Continue Eliquis CPAP with sleep Simply monitor blood sugars for now Home fentanyl chronic pain Supportive care otherwise DVT prophylaxis: half home dose of eliquis Plans, findings and concerns discussed with patient and he was given an opportunity to ask questions. 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 Once explained however he is agreeable to plan of care. Anticipated Disposition: Home Code Status: Full code Attestations Medical Necessity Statement*: Patient requires hospitalization due to acute kidney injury Coding Level of Care Code Acute Rn Examiner for [facility] Fwd Diagnoses Acute kidney injury N17.9 Hyperkalemia E87.5 Pelvic mass R19.00 Congestive heart failure I50.9 Heart failure type: unspecified Heart failure chronicity: acute on chronic Atrial fibrillation I48.19 Atrial fibrillation type: persistent (not longstanding) Chronic anticoagulation Z79.01 Benign essential hypertension with target blood pressure below 140/90 I10 Atherosclerotic heart disease [place] coronary artery w/angina pectoris I25.119 [place] vs. transplanted heart: [place] heart Chronic pain disorder G89.4 VISHNU (obstructive sleep apnea) G47.33 Cholelithiasis K80.20 Thickening of wall of gallbladder K82.8
[2020-08-05] MEDS: polyethylene glycol 3350 Pkt 17 gm PO (21:01)
[2020-08-06] VITALS: BP 117/77; PULSE 114; RESP 13; TEMP 36.7
[2020-08-06] MEDS: sodium polystyrene sulfonate 15 gm/60 mL Btl PO (03:47)
[2020-08-06 04:00] VITALS: BP 152/97; PULSE 119; RESP 12; TEMP 37.1; O2SAT 98
[2020-08-06] MEDS: metoprolol tartrate 25 mg Tablet PO (05:33)
[2020-08-06] MEDS: apixaban 5 mg Tablet 2.5 MG PO (05:33)
[2020-08-06] MEDS: pantoprazole DR 40 mg Tablet PO (05:33)
[2020-08-06] MEDS: clopidogrel 75 mg Tablet PO (05:33)
[2020-08-06] MEDS: ezetimibe 10 mg Tablet PO (05:33)
[2020-08-06] MEDS: brimonidine 0.2% Op Soln 5 mL Btl 1 DROP EYE-BOTH (05:34)
[2020-08-06] MEDS: latanoprost 0.005% Op Soln 2.5 mL Btl 1 DROP EYE-BOTH (05:35)
[2020-08-06 06:00] VITALS: PULSE 105
[2020-08-06 06:29] LABS: Anion Gap 12.8 (5-19); Blood Urea Nitrogen 33 mg/dL (8-23); Calcium 8.9 mg/dL (8.5-10.5); Carbon Dioxide 27 mmol/L (22-29); Chloride 104 mmol/L (98-107); Glucose 92 mg/dL (65-115); Osmolality Calculated 297 mOsm/kg (285-295); Potassium 3.8 mmol/L (3.5-5.1); Sodium 140 mmol/L (136-145)
[2020-08-06 07:14] VITALS: BP 122/74; PULSE 104; RESP 17; TEMP 36.7; O2SAT 97
[2020-08-06] MEDS: allopurinol 100 mg Tablet PO (07:18)
[2020-08-06] MEDS: isosorbide mononitrate ER 30 mg Tablet PO (07:19)
[2020-08-06 11:49] VITALS: BP 114/68; PULSE 90; RESP 18; TEMP 36.4; O2SAT 95
--- NOTE | 2020-08-06 13:01 | P.DS_ITS ---
Discharge Providers Date of Admission: 08/04/20 02:51 Date of Discharge: August 06, 2020 Attending Provider at Admission: Ly Alvarez MD Attending Provider at Discharge: Wu Barfield MD Primary Care Provider: Raymond Reddy MD Diagnoses at Discharge Discharge Diagnosis (1) Acute kidney injury: Status: Acute (2) Hyperkalemia: Status: Acute (3) Pelvic mass: Status: Acute (4) Congestive heart failure: Status: Chronic Qualifiers: Heart failure type: unspecified Heart failure chronicity: acute on chronic Qualified Code(s): I50.9 - Heart failure, unspecified (5) Atrial fibrillation: Status: Chronic Qualifiers: Atrial fibrillation type: persistent (not longstanding) Qualified Code(s): I48.19 - Other persistent atrial fibrillation (6) Chronic anticoagulation: Status: Chronic Permanent problem details: eliquis (7) Benign essential hypertension with target blood pressure below 140/90: Status: Chronic (8) 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 LV systolic function is moderately reduced with EF of 35 to 40%. There is severe hypokinesis of anterior and apical peña. Diastolic function is indeterminate because of atrial fibrillation. There is mild to moderate mitral regurgitation. Mild aortic regurgitation is seen. Mild pulmonic regurgitation is present. RVSP is 45 to 50 mmHg consistent with moderate pulmonary hypertension. Compared to prior study from 06/30/2018, LV systolic function is now further decreased to 35 to 40%. Qualifiers: [place] vs. transplanted heart: [place] heart Qualified Code(s): I25.119 - Atherosclerotic heart disease of [place] coronary artery with unspecified angina pectoris (9) Chronic pain disorder: Status: Chronic (10) VISHNU (obstructive sleep apnea): Status: Chronic (11) Cholelithiasis: Status: Acute (12) Thickening of wall of gallbladder: Status: Acute Reason for Visit Reason for Visit: WEAKNESS Hospital Course Hospital Course This is a 80-year-old male with a past medical history of atrial fibrillation on Eliquis, hypertension, hyperlipidemia, CHF, chronic pain on fentanyl patches,cad, GERD, gout, osteoarthritis who presents to [facility] due to feeling sick, nausea, malaise, for a 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 He received IV hydration, his nephrotoxic medications were held, his antihypertensive was held, he clinically improved, creatinine on discharge was 1.6. On discharge I have instructed him to drink between 1.5 to 2 L of electrolyte b alance fluids especially when he is out in the heat, due to risk of heat exhaustion. He does have a history of CHF so we have to closely monitor for fluid overload, but if he is going to go out in [facility], he should increase his fluid intake by at least a liter In terms of his medications, his creatinine on discharge was 1.6, I have decreased his Eliquis dose to 2.5 mg twice daily. He should follow-up with Dr. Reddy, if creatinine is less than 1.5 may go back to 5 mg twice daily. For now I have held his Lasix, recheck creatinine later on this week, if creatinine is less than 1.3 may resume Lasix with potassium replacement I have decreased his metoprolol to 25 mg twice daily, as he has been fairly normotensive, and heart rates have been well controlled as inpatient. In addition I have decreased his dose of Imdur to 30 mg daily. These blood pressure medications might be required to be upward titrated as outpatient, pending his repeat outpatient blood pressures and heart rates. In addition I have held his spironolactone and lisinopril until he follows up with Dr. Reddy. May be resumed if blood pressure and creatinine allows. He was also found to have thickening of the gallbladder, with large gallstone, he was asymptomatic, continue to monitor as outpatient. If you are to have right upper quadrant pain, fevers, go to the emergency room. Follow-up with surgery as outpatient. Patient had a renal ultrasound performed which showed a hypoechoic solid mass posterior to the urinary bladder, however CT scan of the abdomen did not show this mass, I did go over the images with our radiology department, no significant mass was seen. However he was found to have multiple renal cysts, the largest measuring in the left kidney exophytic lesion 4 cm. I will have patient follow-up with urology as outpatient. Physical Exam Const: COMMON NORMALS: no acute distress and patient oriented x3 Resp: COMMON NORMALS: normal respiratory effort, No retractions, No use of accessory muscles and clear to auscultation bilaterally AUSCULTATION: clear to auscultation bilaterally Cardio: COMMON NORMALS: regular rate, S1 normal heart sound present and S2 normal heart sound present RATE: regular rate RHYTHM: abnormal rhythm HEART SOUNDS: S1 normal heart sound present and S2 normal heart sound present GI: COMMON NORMALS: Normal to inspection, nondistended, normoactive bowel sounds present, Soft to palpation and non-tender PALPATION: Yes Soft to palpation Extremity: COMMON NORMALS: no pedal edema Neuro: COMMON NORMALS: patient oriented x3 Psych: COMMON NORMALS: mental status grossly normal Discharge Data Data Completed and Pending: Completed Studies During Hospitalization Category Date Time Status CT abdomen pelvis wo con [id number] Rout ine Cat Scan 08/05/20 11:22 Completed XR chest 1V estefanía ble [id number] Urgent Exams 08/04/20 01:56 Completed US renal BI* [id number] Routine Ultrasound 08/04/20 06:14 Completed Pending at discharge Category Date Time Status Basic Metabolic P maddy AM LABS Lab 08/07/20 04:00 Ordered Labs from last 24 hours 08/06/20 05:34 Sodium 140 Potassium 3.8 Chloride 104 Carbon Dioxide 27 Anion Gap 12.8 BUN 33 H Creatinine 1.6 H GFR Calculation Not Reportable Glucose 92 Calculated Osmolal ity 297 H Calcium 8.9 Vitals: Last Vital Signs Temp 97.5 F L 08/06/20 11:49 Pulse 90 08/06/20 11:49 Resp 18 08/06/20 11:49 BP 114/68 08/06/20 11:49 Pulse Ox 95 08/06/20 11:49 Discharge Plan Discharge Patient Disposition: Home Condition: Stable Prescriptions: New allopurinol 100 mg Tablet 100 mg PO DAILY 30 Days Qty: 30 RF: 0 metoprolol tartrate 25 mg Tablet 25 mg PO BID@0600,1700 30 Days Qty: 60 RF: 0 Continued ascorbic acid (vitamin C) 500 mg tablet extended release 500 mg PO BID@ RF: 0 omega-3 fatty acids [Fish Oil Concentrate] 1,000 mg capsule 1,000 mg PO DAILY@07 RF: 0 (DME) CPAP See Rx Instructions .Route .MEDSUPPLY Qty: 1 RF: 0 polyethylene glycol 3350 [Miralax] 17 gram/dose powder 17 gm PO DAILY@1700 RF: 0 latanoprost 0.005 % drops 1 drp ophthalmic (eye) BID@ RF: 0 brimonidine 0.2 % drops 1 drp ophthalmic (eye) BID@ RF: 0 vitamin E 400 unit Capsule 400 unit PO DAILY@06 RF: 0 omeprazole 20 mg capsule,delayed release(DR/EC) 20 mg PO BID@ RF: 0 fentanyl 50 mcg/hr patch 72 hour 50 mcg topical Q72H RF: 0 atorvastatin 80 mg tablet 80 mg PO DAILY@1700 RF: 0 hydrocodone-acetaminophen 5-325 mg tablet 1 tab PO Q8H PRN (Reason: Pain) RF: 0 clopidogrel 75 mg tablet 75 mg PO DAILY@0600 RF: 0 nitroglycerin 0.4 mg tablet, sublingual 0.4 mg sublingual Q5M MDD 3 tabs PRN (Reason: Chest Pain) RF: 0 ezetimibe 10 mg tablet 10 mg PO DAILY@0600 RF: 0 Changed isosorbide mononitrate 60 mg tablet extended release 24 hr 30 mg PO DAILY@0600 Qty: 0 RF: 0 Eliquis 5 mg tablet 2.5 mg PO Q12H Qty: 0 RF: 0 Held furosemide 40 mg tablet 60 mg PO BID@0600,1700 RF: 0 Hold Instructions: Resume on 08/29/20. until you see primary care and cr<1.3 potassium chloride 20 mEq tablet,ER particles/crystals 20 meq PO BID@0600,1700 RF: 0 Hold Instructions: Resume on 08/29/20. until you see primary care and cr<1.3 lisinopril 40 mg tablet 40 mg PO DAILY@0600 RF: 0 Hold Instructions: Resume on 08/27/20. Hold until you see primary care, if creatinine less than 1.3 resume Discontinued meloxicam 15 mg tablet 15 mg PO DAILY@0600 RF: 0 spironolactone 25 mg tablet 25 mg PO DAILY@0600 RF: 0 diltiazem HCl 120 mg capsule,extended release 12 hr 120 mg PO BID@0600,1700 RF: 0 metoprolol tartrate 50 mg tablet 50 mg PO BID@0600,1700 RF: 0 allopurinol 300 mg tablet 300 mg PO DAILY@0600 RF: 0 Discharge Orders: Discharge Order (Routine); Ordered 08/06/20 Ordered By: uW Barfield Referrals: Raymond Reddy MD [Primary Care Provider] - 08/09/20 9:15 am (recheck cr, adjust medication doses, add back bp medication) Jeffery Antonio MD [Physician] - 4-7 days (renal cysts) Discharge Diet: Cardiac Discharge Activity: Resume usual activity Patient Instructions: Allopurinol (By mouth), Metoprolol (By mouth), Congestive Heart Failure, Atrial Fibrillation (DC), Dehydration (DC), CHF Stoplight, Opioid Safety Activity Restrictions/Additional Instructions: -Follow-up with Dr. Reddy this week -Recheck blood work early this week, check creatinine -Your Eliquis dose has been decreased to 2.5 mg twice daily, recheck creatinine, if less than 1.5 can resume 5 mg twice daily -Allopurinol dose has been decreased to 100 mg daily, if GFR has improved, can r esume 300 mg daily -Dose of metoprolol has been decreased to 25 mg twice daily, Imdur dose to 30 mg daily -Hold Lasix and potassium placement until you see Dr. Reddy, recheck creatinine, if less than 1.3 can resume -Spironolactone and Cardizem for now have been discontinued -But can be resumed if blood pressure and heart rate allow Discharge Attestations Time Spent in Discharge Care*: greater than 30 min Status at Discharge: Cognitive status at discharge: cognitively intact , Behavioral status at discharge: cooperative and independent in ADL's , Quality Metrics Clinical Quality Measures During this hospital stay, did patient experience: None Coding Level of Care Code Acute Chg FW DC note Diagnoses Acute kidney injury N17.9 Hyperkalemia E87.5 Pelvic mass R19.00 Congestive heart failure I50.9 Heart failure type: unspecified Heart failure chronicity: acute on chronic Atrial fibrillation I48.19 Atrial fibrillation type: persistent (not longstanding) Chronic anticoagulation Z79.01 Benign essential hypertension with target blood pressure below 140/90 I10 Atherosclerotic heart disease [place] coronary artery w/angina pectoris I25.119 [place] vs. transplanted heart: [place] heart Chronic pain disorder G89.4 VISHNU (obstructive sleep apnea) G47.33 Cholelithiasis K80.20 Thickening of wall of gallbladder K82.8
[2020-08-06 13:37] VITALS: BP 114/68; PULSE 90; RESP 18; TEMP 36.4; O2SAT 95
== END 2020-08-06 13:38 | disposition home or self-care (01) | DRG 683 ==
LOC: ER 02:52 → MEDSURG 02:56
PROVIDERS: Admitting Provider Hospitalist; Emergency Provider Emergency Medicine; PCP Internal Medicine; Visit Provider Family Medicine
DX: N17.9 Acute kidney failure, unspecified (principal); A52.03 Syphilitic endocarditis; I48.19 Other persistent atrial fibrillation; E87.5 Hyperkalemia; E86.0 Dehydration; T67.5XXA Heat exhaustion, unspecified, initial encounter; X30.XXXA Exposure to excessive natural heat, initial encounter; I25.5 Ischemic cardiomyopathy; I25.119 Atherosclerotic heart disease of native coronary artery with unspecified angina pectoris; I11.0 Hypertensive heart disease with heart failure; I50.9 Heart failure, unspecified; I34.0 Nonrheumatic mitral (valve) insufficiency; G89.29 Other chronic pain; G47.33 Obstructive sleep apnea (adult) (pediatric); E78.5 Hyperlipidemia, unspecified; K21.9 Gastro-esophageal reflux disease without esophagitis; M19.90 Unspecified osteoarthritis, unspecified site; R73.9 Hyperglycemia, unspecified; R19.09 Other intra-abdominal and pelvic swelling, mass and lump; K80.20 Calculus of gallbladder without cholecystitis without obstruction; N18.9 Chronic kidney disease, unspecified; Z79.02 Long term (current) use of antithrombotics/antiplatelets; Z79.01 Long term (current) use of anticoagulants; Z79.891 Long term (current) use of opiate analgesic; Z87.891 Personal history of nicotine dependence; Z82.49 Family history of ischemic heart disease and other diseases of the circulatory system; Z90.79 Acquired absence of other genital organ(s); Z96.642 Presence of left artificial hip joint; Z96.612 Presence of left artificial shoulder joint; Z95.5 Presence of coronary angioplasty implant and graft; Z79.899 Other long term (current) drug therapy
CPT/HCPCS: 36415; 71045; 74176; 76770; 80048; 80053; 81003; 82550; 83735; 84100; 85025; 93005; 96361; 96374; 96375; 99285; J1815; J2405; J7030; J7040

== ENCOUNTER → 2020-08-09 15:53 | Outpatient (BNVA) | payer MEDICARE, SELFPAY | PROVIDERS: PCP Internal Medicine; Visit Provider Internal Medicine | DX: N17.9 Acute kidney failure, unspecified (principal); I48.19 Other persistent atrial fibrillation; G47.33 Obstructive sleep apnea (adult) (pediatric); M54.5 Low back pain; I50.9 Heart failure, unspecified | CPT/HCPCS: 80053; 85025 ==

== ENCOUNTER → 2020-08-21 08:23 | Outpatient (BNVA) | payer MEDICARE, SELFPAY | PROVIDERS: PCP Internal Medicine; Visit Provider Internal Medicine Cardiovascular Disease | DX: I25.119 Atherosclerotic heart disease of native coronary artery with unspecified angina pectoris (principal); E78.5 Hyperlipidemia, unspecified; N17.9 Acute kidney failure, unspecified; I70.90 Unspecified atherosclerosis; I95.1 Orthostatic hypotension; I50.9 Heart failure, unspecified; I48.91 Unspecified atrial fibrillation | CPT/HCPCS: 80048; 83880 ==

== ENCOUNTER → 2020-08-22 08:11 | Outpatient (BNVA) | payer MEDICARE, SELFPAY | PROVIDERS: PCP Internal Medicine; Visit Provider Urology | DX: N17.9 Acute kidney failure, unspecified (principal); R19.00 Intra-abdominal and pelvic swelling, mass and lump, unspecified site; R97.20 Elevated prostate specific antigen [PSA]; Z85.46 Personal history of malignant neoplasm of prostate | CPT/HCPCS: 81003; 84153 ==

== ENCOUNTER 2020-09-03 22:06 | Emergency (ER) | payer MEDICARE, SELFPAY ==
[2020-09-03 22:18] VITALS: BP 103/72; PULSE 134; RESP 18; TEMP 36.1; O2SAT 99; BMI 20.7
--- NOTE | 2020-09-03 22:38 | ECG_ITS ---
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 Measurements Intervals [place] Rate: 128 P: IA: QRS: -75 QRSD: 106 T: 89 QT: 336 QTc: 491 Interpretive Statements ATRIAL FIBRILLATION WITH RAPID VENTRICULAR RESPONSE LEFT ANTERIOR FASCICULAR BLOCK [QRS AXIS <= -45, QR IN I, RS IN II] ANTEROSEPTAL MYOCARDIAL INFARCTION [40+ ms Q WAVE IN V1-V4], PROBABLY OLD Compared to ECG 08/04/2020 14:08:36 Left anterior fascicular block now present Myocardial infarct finding still present Electronically Signed On 09-05-2020 0:30:19 CDT by Red Sherman M.D. [email or web address]
--- NOTE | 2020-09-03 22:38 | XRR_ITS ---
PROCEDURE INFORMATION: Exam: XR Chest Exam date and time: 09/03/2020 10:38 PM Age: 80 years old Clinical indication: Chest wall pain; Prior surgery; Surgery date: 6+ months; Surgery type: Stints; Additional info: Cp TECHNIQUE: Imaging protocol: XR of the chest. Views: 1 view. COMPARISON: CR (CHEST, ) 08/04/2020 1:53 AM FINDINGS: Lungs: The lungs are clear. Pleural spaces: Unremarkable. No pleural effusion. No pneumothorax. Heart/Mediastinum: At least 1 coronary artery stent is noted. Bones/joints: Chronic left shoulder arthroplasty. Chronic degenerative changes in the right shoulder. XR/XR chest 1V portable [id number] IMPRESSION: No acute findings
--- NOTE | 2020-09-03 22:52 | W.ED.ARRPALP ---
HPI - Arrhythmia/Palpitations General: Chief Complaint: Arrhythmia/Palpitations Stated Complaint: trouble breathing Time Seen by Provider: 09/03/20 22:38 Source: patient Mode of arrival: ambulatory Limitations: no limitations History of Present Illness: HPI narrative: 80-year-old male has history of Meagan braga is recently admitted here a month ago for acute kidney injury and dehydration. He states that he was at his 's doctor's appointment started having a funny feeling in his chest with severe dyspnea and chest pain. He checked his heart rate and it was in the 120s and he is having heart rates in the 120s and 130s here Meagan braga with RVR. He is on Eliquis. He denies any vomiting. He states that his dyspnea is since improved some. Associated symptoms: Deny nausea or vomiting Review of Systems Const: Denies: fever(s), chills, body aches or change in appetite Eyes: Denies: blurry vision or eye discomfort ENMT: Denies: throat pain or dental pain Card: Reports: chest pain and irregular heart rhythm Resp: Denies: dyspnea GI: Denies: abdominal pain, nausea, vomiting or diarrhea : Denies: dysuria Musc: Denies: neck pain or back pain Skin/Breast: Denies: rash Neuro: Denies: headache(s) Psych: Denies: depression Britton/Lymph: Denies: easy bruising All/Imm: Denies: urticaria PFSH ED PFSH: Medical History (Updated 09/04/20 @ 01:14 by Perla Bertrand MD) 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 LV systolic function is moderately reduced with EF of 35 to 40%. There is severe hypokinesis of anterior and apical peña. Diastolic function is indeterminate because of atrial fibrillation. There is mild to moderate mitral regurgitation. Mild aortic regurgitation is seen. Mild pulmonic regurgitation is present. RVSP is 45 to 50 mmHg consistent with moderate pulmonary hypertension. Compared to prior study from 06/30/2018, LV systolic function is now further decreased to 35 to 40%. Atrial fibrillation Benign essential hypertension with target blood pressure below 140/90 Congestive heart failure Dyslipidemia (high LDL; low HDL) Erectile dysfunction Essential (primary) hypertension GERD (gastroesophageal reflux disease) Gout Hiatal hernia History of prostate cancer Hx of angiography Ischemic cardiomyopathy Mitral valve regurgitation Osteoarthritis Surgical History History of appendectomy History of carpal tunnel release History of hemorrhoidectomy History of inguinal hernia repair History of left hip replacement History of left shoulder replacement History of prostatectomy S/P PTCA (percutaneous transluminal coronary angioplasty) Family History Brother CAD (coronary artery disease) Diabetes Heart disease Father CAD (coronary artery disease) Heart disease Sister CAD (coronary artery disease) Cancer Diabetes Heart disease Mother Diabetes Stroke Grandmother Diabetes Denies family history of Clotting disorder Dementia Chronic kidney disease (CKD) Suicide Anesthesia complication Bleeding disorder Lung disease Social History Smoking and tobacco status: former smoker Alcohol intake: never History of recent travel: No Physical Exam Const: COMMON NORMALS: no acute distress, patient oriented x3 and healthy appearing HENMT: COMMON NORMALS: normocephalic and atraumatic HEAD & SCALP: normocephalic and atraumatic Eye: COMMON NORMALS: Equal, round and reactive pupils present and EOMs intact bilaterally PUPIL: Yes Equal, round and reactive pupils present Neck/C-Spine: COMMON NORMALS: full ROM and supple Chest: COMMONS NORMALS: normal inspection of the chest and normal palpation of entire chest wall Resp: COMMON NORMALS: normal respiratory effort, No retractions, No use of accessory muscles and clear to auscultation bilaterally AUSCULTATION: clear to auscultation bilaterally Cardio: COMMON NORMALS: No murmurs present (Cardio) RATE: tachycardic RHYTHM: abnormal rhythm irregularly irregular GI: COMMON NORMALS: Normal to inspection, nondistended, normoactive bowel sounds present, Soft to palpation, non-tender and no masses PALPATION: Yes Soft to palpation Extremity: COMMON NORMALS: normal to inspection and full ROM Neuro: COMMON NORMALS: patient oriented x3, moves all extremities and no focal motor deficits Psych: COMMON NORMALS: mental status grossly normal, Normal thought process present and cooperative THOUGHT PROCESS: Normal thought process present Skin: COMMON NORMALS: no rashes or lesions noted and no wounds GENERAL SKIN EXAM: no rashes or lesions noted Course Vital Signs: Vital signs: Vital Signs Temperature 97.7 F 09/03/20 23:01 Pulse Rate 85 09/04/20 00:33 Respiratory Rate 18 09/04/20 00:33 Blood Pressure 106/73 09/04/20 00:33 Pulse Oximetry 95 09/04/20 00:33 MDM - Arrhythmia/Palpitations MDM Narrative: Medical decision making narrative: Patient presents with A. fib with RVR. His heart rates improved into the 80s after Cardizem. His pain is since resolved as well. His repeat troponin here is negative CT shows no signs of pulmonary embolism. He feels improved and is stable for discharge. He is to follow-up with his vat overhauler and return if worsening. Lab Data: Labs: Lab Results 09/03/20 09/03/20 09/03/20 Range/Units 22:40 22:40 22:40 WBC 7.1 (4.0-10.0) 10^3/ uL RBC 4.53 (4.1-5.3) 10^6/u L Hgb 13.8 (11.7-16.6) g/dL Hct 42.9 (42.0-52.0) % MCV 94.7 H (80-94) fL MCH 30.5 (28.0-34.0) pg MCHC 32.2 (30.0-36.0) g/dL RDW 16.1 H (12.1-15.1) % Plt Count 197 (130-400) 10^3/c mm MPV 10.8 H (7.4-10.4) fL Neut % (Auto) 64.6 % Lymph % (Auto) 25.7 % Dickey % (Auto) 6.3 % Eos % (Auto) 2.1 % Baso % (Auto) 1.0 % Neut # (Auto) 4.59 (1.8-7.7) 10^3/u L Lymph # (Auto) 1.8 (0.8-4.8) 10^3/u L Dickey # (Auto) 0.5 (0.2-0.9) 10^3/u L Eos # (Auto) 0.2 (0.0-0.8) 10^3/u L Baso # (Auto) 0.1 (0.0-0.1) 10^3/u L Nucleated RBC % (a uto) 0 % Nucleated RBCs # 0.0 /100WBC PT 20.40 H (12.1-14.9) SECO NDS INR 1.70 H (0.8-1.2) Sodium 144 (136-145) mmol/L Potassium 5.0 (3.5-5.1) mmol/L Chloride 107 (98-107) mmol/L Carbon Dioxide 26 (22-29) mmol/L Anion Gap 16.0 (5-19) BUN 26 H (8-23) mg/dL Creatinine 1.6 H (0.7-1.2) mg/dL GFR Calculation Not Reportable Glucose 122 H (65-115) mg/dL Calculated Osmolal ity 304 H (285-295) mOsm/k g Calcium 8.8 (8.5-10.5) mg/dL Total Bilirubin 0.5 (0.15-1.2) mg/dL AST 52 H (0-40) U/L ALT 48 H (0-41) U/L Alkaline Phosphata se 125 (40-130) IU/L Troponin T Baselin e (0-15) ng/L Troponin T 120 Min ewiiaapaayp (0-15) ng/L Delta Troponin T (0-10) ABS# NT-Pro-B Natriuret Pep 66614 H (0-450) pg/mL Total Protein 6.2 L (6.6-8.7) g/dL Albumin 3.9 (3.5-5.2) g/dL Globulin 2.3 (1.3-4.6) g/dL 09/03/20 09/04/20 Range/Units 22:40 00:40 WBC (4.0-10.0) 10^3/ uL RBC (4.1-5.3) 10^6/u L Hgb (11.7-16.6) g/dL Hct (42.0-52.0) % MCV (80-94) fL MCH (28.0-34.0) pg MCHC (30.0-36.0) g/dL RDW (12.1-15.1) % Plt Count (130-400) 10^3/c mm MPV (7.4-10.4) fL Neut % (Auto) % Lymph % (Auto) % Dickey % (Auto) % Eos % (Auto) % Baso % (Auto) % Neut # (Auto) (1.8-7.7) 10^3/u L Lymph # (Auto) (0.8-4.8) 10^3/u L Dickey # (Auto) (0.2-0.9) 10^3/u L Eos # (Auto) (0.0-0.8) 10^3/u L Baso # (Auto) (0.0-0.1) 10^3/u L Nucleated RBC % (a uto) % Nucleated RBCs # /100WBC PT (12.1-14.9) SECO NDS INR (0.8-1.2) Sodium (136-145) mmol/L Potassium (3.5-5.1) mmol/L Chloride (98-107) mmol/L Carbon Dioxide (22-29) mmol/L Anion Gap (5-19) BUN (8-23) mg/dL Creatinine (0.7-1.2) mg/dL GFR Calculation Glucose (65-115) mg/dL Calculated Osmolal ity (285-295) mOsm/k g Calcium (8.5-10.5) mg/dL Total Bilirubin (0.15-1.2) mg/dL AST (0-40) U/L ALT (0-41) U/L Alkaline Phosphata se (40-130) IU/L Troponin T Baselin e 61 H (0-15) ng/L Troponin T 120 Min ewiiaapaayp 50.14 H (0-15) ng/L Delta Troponin T -10.86 L (0-10) ABS# NT-Pro-B Natriuret Pep (0-450) pg/mL Total Protein (6.6-8.7) g/dL Albumin (3.5-5.2) g/dL Globulin (1.3-4.6) g/dL Imaging Data^: CT Chest: Attestation: I personally reviewed and interpreted this imaging study as follows: Radiologist's impression: [address] [address] [address] Scan Report Signed Patient: Stanislav Wu Unit #: [id number] : 1940 Age/Sex: 80 / M ADM Date: 09/03/20 Loc: ER Room/Bed: Attending Dr: Ordering Provider/Ordering MD: Perla Bertrand MD Date of Service: 09/03/20 Procedure(s): CT angio chest PE protcl [id number] Accession Number(s): [id number] Report Number: [id number] PROCEDURE INFORMATION: Exam: CTA Chest With Contrast Exam date and time: 09/03/2020 11:40 PM Age: 80 years old Clinical indication: Dyspnea; Prior surgery; Surgery date: 6+ months; Surgery type: Stents; Additional info: SOB TECHNIQUE: Imaging protocol: Computed tomographic angiography of the chest with contrast. 3D rendering (Not supervised by radiologist): MIP and/or 3D reconstructed images were created by the technologist. Radiation optimization: All CT scans at this facility use at least one of these dose optimization techniques: automated exposure control; mA and/or kV adjustment per patient size (includes targeted exams where dose is matched to clinical indication); or iterative reconstruction. Contrast material: VISI; Contrast volume: 95 ml; Contrast route: INTRAVENOUS (IV); COMPARISON: CT chest w con* [id number] 08/23/2015 1:00 PM RADIATION DOSE METRICS: Total DLP (mGy-cm): 606.16 FINDINGS: Pulmonary arteries: Overall exam quality is moderate for assessing the pulmonary arteries due to somewhat early contrast bolus timing. Mixing artifacts are noted within the vessels especially in the lung bases. There are no convincing intraluminal filling defects to indicate pulmonary embolism. Aorta: The ascending thoracic aorta is mildly enlarged up to 4.2 cm which is increased since 2016 at which time it measured 3.9 cm. No hemorrhage. Lungs: Bilateral interstitial edema has developed along with basilar atelectasis. There are scattered calcified granulomas. Pleural spaces: No pleural effusion. Heart: There is extensive calcified plaque throughout the coronary arteries. The left atrium is enlarged. Lymph nodes: There is new, mild central mediastinal adenopathy. For example a precarinal node measures 2.2 cm. A subcarinal node measures 2.0 cm . There are a few calcified mediastinal nodes. Gallbladder and bile ducts: A gallstone in the gallbladder is nonobstructing. Kidneys and ureters: There are several presumptive hyperdense cysts in the left kidney measuring up to 3.5 cm. Bones/joints: Unremarkable. No acute fracture. Soft tissues: Unremarkable. CT/CT angio chest PE protcl [id number] IMPRESSION: 1. No pulmonary embolism. No pneumonia. 2. New interstitial edema but without pleural effusion. 3. New central adenopathy. This could be reactive but needs clinical correlation.. 4. Increased enlargement of the ascending thoracic aorta up to 4.2 cm. 5. Other chronic and incidental findings as described. COMMENTS: Consistent with the [employer]'s Incidental Findings Committee white paper (J Am Roshni Radiol 2018): Any incidental renal lesion less than 1 cm or classified as too small to characterize, or any incidental cystic renal lesion characterized as simple-appearing, is likely benign. No follow-up imaging is recommended for these lesions per consensus recommendations based on imaging criteria. Radiation Dose CTDIVOL = (mGy): DLP = 606.16 (mGy-cm) Dictated By: Khadijah Araujo MD Signed By: Khadijah Araujo MD Signed Date/Time: 09/04/20 0038 EKG Data^: EKG 1: Attestation: I personally reviewed and interpreted this EKG as follows: EKG interpretation date: 09/03/20 EKG interpretation time: 22:31 Interpretation: afib with rvr hr [address] or t wave abnormalities qrs 109 qtc 405 Other EKG comments: Chest X-Ray 09/03/20 22:38 IMPRESSION: No acute findings Chest CTA 09/03/20 23:40 IMPRESSION: 1. No pulmonary embolism. No pneumonia. 2. New interstitial edema but without pleural effusion. 3. New central adenopathy. This could be reactive but needs clinical correlation.. 4. Increased enlargement of the ascending thoracic aorta up to 4.2 cm. 5. Other chronic and incidental findings as described. COMMENTS: Consistent with the [employer]'s Incidental Findings Committee white paper (J Am Roshni Radiol 2018): Any incidental renal lesion less than 1 cm or classified as too small to characterize, or any incidental cystic renal lesion characterized as simple-appearing, is likely benign. No follow-up imaging is recommended for these lesions per consensus recommendations based on imaging criteria. Radiation Dose CTDIVOL = (mGy): DLP = 606.16 (mGy-cm) Discharge Plan Discharge Patient Disposition: Home Clinical Impression: Atrial fibrillation Qualifiers: Atrial fibrillation type: unspecified Qualified Code(s): I48.91 - Unspecified atrial fibrillation Chest pain Qualifiers: Chest pain type: unspecified Qualified Code(s): R07.9 - Chest pain, unspecified Condition: Stable Prescriptions: No Action fentanyl 50 mcg/hr patch 72 hour 50 mcg topical Q72H 30 Days Qty: 10 RF: 0 ascorbic acid (vitamin C) 500 mg tablet extended release 500 mg PO BID@ RF: 0 omega-3 fatty acids [Fish Oil Concentrate] 1,000 mg capsule 1,000 mg PO DAILY@07 RF: 0 valsartan 80 mg tablet 80 mg PO BID Qty: 180 RF: 3 (DME) CPAP See Rx Instructions .Route .MEDSUPPLY Qty: 1 RF: 0 Eliquis 5 mg tablet 5 mg PO Q12H Qty: 60 RF: 0 furosemide 40 mg tablet 40 mg PO BID Qty: 180 RF: 3 Hold Instructions: Resume on 08/29/20. until you see primary care and cr<1.3 potassium chloride 20 mEq tablet,ER particles/crystals 20 meq PO BID Qty: 180 RF: 3 Hold Instructions: Resume on 08/29/20. until you see primary care and cr<1.3 Entresto 24-26 mg tablet 1 tab PO BID Qty: 60 RF: 11 polyethylene glycol 3350 [Miralax] 17 gram/dose powder 17 gm PO DAILY@1700 RF: 0 latanoprost 0.005 % drops 1 drp ophthalmic (eye) BID@ RF: 0 brimonidine 0.2 % drops 1 drp ophthalmic (eye) BID@ RF: 0 vitamin E 400 unit Capsule 400 unit PO DAILY@06 RF: 0 omeprazole 20 mg capsule,delayed release(DR/EC) 20 mg PO BID@,17 RF: 0 atorvastatin 80 mg tablet 80 mg PO DAILY@1700 RF: 0 hydrocodone-acetaminophen 5-325 mg tablet 1 tab PO Q8H PRN (Reason: Pain) RF: 0 clopidogrel 75 mg tablet 75 mg PO DAILY@0600 RF: 0 nitroglycerin 0.4 mg tablet, sublingual 0.4 mg sublingual Q5M MDD 3 tabs PRN (Reason: Chest Pain) RF: 0 ezetimibe 10 mg tablet 10 mg PO DAILY@0600 RF: 0 allopurinol 100 mg Tablet 100 mg PO DAILY 30 Days Qty: 30 RF: 0 metoprolol tartrate 25 mg Tablet 25 mg PO BID@0600,1700 30 Days Qty: 60 RF: 0 isosorbide mononitrate 60 mg tablet extended release 24 hr 30 mg PO DAILY@0600 Qty: 0 RF: 0 Discharge Orders: Discharge ED (Routine); Ordered 09/04/20 Ordered By: Perla Bertrand Referrals: Raymond Reddy MD [Primary Care Provider] - Discharge Diet: Advance as tolerated Discharge Activity: Resume usual activity Patient Instructions: Atrial Fibrillation (ED), Chest Pain (ED) Coding Level of Care Code ED Dowel Pointer for Ayushg Fwd Exam Comprehensive
[2020-09-03 22:59] LABS: Basophils # 0.1 10^3/uL (0.0-0.1); Eosinophils # 0.2 10^3/uL (0.0-0.8); Eosinophils % 2.1 %; Hematocrit 42.9 % (42.0-52.0); Hemoglobin 13.8 g/dL (11.7-16.6); Lymphocytes # 1.8 10^3/uL (0.8-4.8); Lymphocytes % 25.7 %; Mean Corpuscular HGB Conc 32.2 g/dL (30.0-36.0); Mean Corpuscular Hemoglobin 30.5 pg (28.0-34.0); Mean Corpuscular Volume 94.7 fL (80-94); Mean Platelet Volume 10.8 fL (7.4-10.4); Monocytes # 0.5 10^3/uL (0.2-0.9); Monocytes % 6.3 %; Neutrophils # 4.59 10^3/uL (1.8-7.7); Neutrophils % 64.6 %; Nucleated Red Blood Cells % 0 %; Platelet Count 197 10^3/cmm (130-400); Red Blood Count 4.53 10^6/uL (4.1-5.3); Red Cell Distribution Width 16.1 % (12.1-15.1); White Blood Count 7.1 10^3/uL (4.0-10.0)
[2020-09-03] MEDS: sodium chloride 0.9% 500 ML 999 ML IV (23:00)
[2020-09-03 23:01] VITALS: BP 114/81; PULSE 131; RESP 18; TEMP 36.5; O2SAT 96
[2020-09-03 23:19] LABS: Troponin(5th) Baseline 61 ng/L (0-15)
[2020-09-03 23:29] LABS: Alanine Aminotransferase 48 U/L (0-41); Albumin Level 3.9 g/dL (3.5-5.2); Alkaline Phosphatase 125 IU/L (40-130); Aspartate Amino Transferase 52 U/L (0-40); Blood Urea Nitrogen 26 mg/dL (8-23); Calcium 8.8 mg/dL (8.5-10.5); Carbon Dioxide 26 mmol/L (22-29); Chloride 107 mmol/L (98-107); Globulin 2.3 g/dL (1.3-4.6); Glucose 122 mg/dL (65-115); NT Pro B Type Natriuretic Pept 12688 pg/mL (0-450); Osmolality Calculated 304 mOsm/kg (285-295); Sodium 144 mmol/L (136-145); Total Bilirubin 0.5 mg/dL (0.15-1.2); Total Protein 6.2 g/dL (6.6-8.7)
--- NOTE | 2020-09-03 23:40 | CTR_ITS ---
PROCEDURE INFORMATION: Exam: CTA Chest With Contrast Exam date and time: 09/03/2020 11:40 PM Age: 80 years old Clinical indication: Dyspnea; Prior surgery; Surgery date: 6+ months; Surgery type: Stents; Additional info: SOB TECHNIQUE: Imaging protocol: Computed tomographic angiography of the chest with contrast. 3D rendering (Not supervised by radiologist): MIP and/or 3D reconstructed images were created by the technologist. Radiation optimization: All CT scans at this facility use at least one of these dose optimization techniques: automated exposure control; mA and/or kV adjustment per patient size (includes targeted exams where dose is matched to clinical indication); or iterative reconstruction. Contrast material: VISI; Contrast volume: 95 ml; Contrast route: INTRAVENOUS (IV); COMPARISON: CT chest w con* [id number] 08/23/2015 1:00 PM RADIATION DOSE METRICS: Total DLP (mGy-cm): 606.16 FINDINGS: Pulmonary arteries: Overall exam quality is moderate for assessing the pulmonary arteries due to somewhat early contrast bolus timing. Mixing artifacts are noted within the vessels especially in the lung bases. There are no convincing intraluminal filling defects to indicate pulmonary embolism. Aorta: The ascending thoracic aorta is mildly enlarged up to 4.2 cm which is increased since 2016 at which time it measured 3.9 cm. No hemorrhage. Lungs: Bilateral interstitial edema has developed along with basilar atelectasis. There are scattered calcified granulomas. Pleural spaces: No pleural effusion. Heart: There is extensive calcified plaque throughout the coronary arteries. The left atrium is enlarged. Lymph nodes: There is new, mild central mediastinal adenopathy. For example a precarinal node measures 2.2 cm. A subcarinal node measures 2.0 cm . There are a few calcified mediastinal nodes. Gallbladder and bile ducts: A gallstone in the gallbladder is nonobstructing. Kidneys and ureters: There are several presumptive hyperdense cysts in the left kidney measuring up to 3.5 cm. Bones/joints: Unremarkable. No acute fracture. Soft tissues: Unremarkable. CT/CT angio chest PE protcl [id number] IMPRESSION: 1. No pulmonary embolism. No pneumonia. 2. New interstitial edema but without pleural effusion. 3. New central adenopathy. This could be reactive but needs clinical correlation.. 4. Increased enlargement of the ascending thoracic aorta up to 4.2 cm. 5. Other chronic and incidental findings as described. COMMENTS: Consistent with the [employer]'s Incidental Findings Committee white paper (J Am Roshni Radiol 2018): Any incidental renal lesion less than 1 cm or classified as too small to characterize, or any incidental cystic renal lesion characterized as simple-appearing, is likely benign. No follow-up imaging is recommended for these lesions per consensus recommendations based on imaging criteria. Radiation Dose CTDIVOL = (mGy): DLP = 606.16 (mGy-cm)
[2020-09-04] MEDS: iodixanol 320 mg/mL 100mL Btl IV (00:08)
[2020-09-04 00:32] VITALS: PULSE 128
[2020-09-04 00:33] VITALS: BP 106/73; PULSE 85; RESP 18; O2SAT 95
[2020-09-04 01:07] LABS: Troponin 5 2HR 50.14 ng/L (0-15)
[2020-09-04 01:08] LABS: Troponin 5 2HR Delta -10.86 ABS# (0-10)
[2020-09-04] MEDS: FUROsemide 10 mg/mL SDV 4mL 40 MG IVP (01:19)
[2020-09-04 01:26] VITALS: BP 111/77; PULSE 93; RESP 17; O2SAT 97
== END 2020-09-04 01:34 | disposition home or self-care (01) ==
PROVIDERS: Emergency Provider Emergency Medicine; PCP Internal Medicine
DX: I48.91 Unspecified atrial fibrillation (principal); R07.9 Chest pain, unspecified; Z79.01 Long term (current) use of anticoagulants; Z79.02 Long term (current) use of antithrombotics/antiplatelets; I25.10 Atherosclerotic heart disease of native coronary artery without angina pectoris; I11.0 Hypertensive heart disease with heart failure; I50.9 Heart failure, unspecified; E78.5 Hyperlipidemia, unspecified; Z85.46 Personal history of malignant neoplasm of prostate; Z87.891 Personal history of nicotine dependence
CPT/HCPCS: 36415; 71045; 71275; 80053; 83880; 84484; 85025; 85610; 93005; 96374; 96375; 99284; J1940; J3490; J7040; Q9967

== ENCOUNTER 2020-09-08 10:39 | Inpatient (IN) | payer MEDICARE, SELFPAY ==
[2020-09-08] VITALS (14 sets, daily range): BP systolic 107–127; BP diastolic 78–106; PULSE 91–137; RESP 14–26; TEMP 36.6; O2SAT 90–98; BMI 22.1
--- NOTE | 2020-09-08 11:12 | XRR_ITS ---
PROCEDURE INFORMATION: Exam: XR Chest Exam date and time: 09/08/2020 11:12 AM Age: 80 years old Clinical indication: Dyspnea TECHNIQUE: Imaging protocol: XR of the chest. Views: 1 view. COMPARISON: CR (CHEST, ) 09/03/2020 10:39 PM FINDINGS: Lungs: Is a benign calcified granuloma in the left base. No acute pulmonary infiltrates are seen. Pleural spaces: Unremarkable. No pleural effusion. No pneumothorax. Heart/Mediastinum: The heart is normal. There is calcification of the aortic arch. Bones/joints: There is prominent DJD in the right shoulder joint. Left shoulder joint prosthesis projects in satisfactory position. XR/XR chest 1V portable [id number] IMPRESSION: No acute cardiopulmonary abnormality.
--- NOTE | 2020-09-08 11:14 | ECG_ITS ---
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 Measurements Intervals [place] Rate: 89 P: OK: QRS: -80 QRSD: 113 T: 92 QT: 394 QTc: 480 Interpretive Statements ATRIAL FIBRILLATION LEFT ANTERIOR FASCICULAR BLOCK [QRS AXIS <= -45, QR IN I, RS IN II] ANTEROSEPTAL MYOCARDIAL INFARCTION [40+ ms Q WAVE IN V1-V4], PROBABLY OLD Compared to ECG 09/03/2020 22:59:34 No significant changes Electronically Signed On 09-08-2020 19:30:49 CDT by Red Sherman M.D. [id number]
--- NOTE | 2020-09-08 11:15 | W.ED.SOB ---
HPI - SOB/Dyspnea General: Chief Complaint: Shortness of Breath/Dyspnea Stated Complaint: SOB Time Seen by Provider: 09/08/20 11:01 History of Present Illness: HPI Narrative: The patient is an 80-year-old male with past medical history A. fib on Eliquis, congestive heart failure, coronary artery disease. Ejection fraction in February was 35 to 40%. He also has chronic pain on fentanyl patches. 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 He says he is been having episodes on and off for the past 4 days. He was seen here on the for A. fib RVR and given Cardizem which improved his rate and discharged. He was also admitted about a month ago for dehydration, and acute kidney injury related to working out in the heat MD elicited complaint: shortness of breath Pertinent past history: congestive heart failure and other (Atrial fibrillation) Timing: intermittent Severity: moderate Exacerbating factors: exertion Relieving factors: rest Known history of: congestive heart failure Associated symptoms: Reports cough and nausea; Deny chest pain, dizziness, extremity pain, fever(s), orthopnea, palpitations or polyuria Review of Systems General: Reports: 10 or more systems reviewed and unremarkable except in HPI and below Const: Reports: fatigue; Denies: fever(s) or chills Eyes: Denies: change in vision, blurry vision or eye redness ENMT: Denies: throat pain, swelling of lips/tongue, ear or mastoid pain or nasal congestion Card: Reports: irregular heart rhythm; Denies: chest pain, palpitations, edema, dyspnea on exertion or orthopnea Resp: Reports: dyspnea and non-productive cough; Denies: productive cough GI: Reports: nausea : Denies: flank pain, urinary frequency or urinary urgency Musc: Denies: neck pain, back pain, extremity pain, joint pain, joint redness, limited range of motion or muscle weakness Skin/Breast: Denies: rash, pruritus, erythema, skin pain or skin tenderness Neuro: Denies: headache(s), numbness in extremities, weakness in extremities, sensory changes, difficulty walking, dizziness, confusion or Slurred speech present Psych: Denies: anxiety or depression Endo: Denies: polyuria All/Imm: Denies: urticaria, throat swelling or tongue swelling PFS ED PFSH: Medical History (Updated 09/08/20 @ 14:28 by Bruno Portillo MD) 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 LV systolic function is moderately reduced with EF of 35 to 40%. There is severe hypokinesis of anterior and apical peña. Diastolic function is indeterminate because of atrial fibrillation. There is mild to moderate mitral regurgitation. Mild aortic regurgitation is seen. Mild pulmonic regurgitation is present. RVSP is 45 to 50 mmHg consistent with moderate pulmonary hypertension. Compared to prior study from 06/30/2018, LV systolic function is now further decreased to 35 to 40%. Atrial fibrillation Benign essential hypertension with target blood pressure below 140/90 Congestive heart failure Dyslipidemia (high LDL; low HDL) Erectile dysfunction Essential (primary) hypertension GERD (gastroesophageal reflux disease) Gout Hiatal hernia History of prostate cancer Hx of angiography Ischemic cardiomyopathy Mitral valve regurgitation Osteoarthritis Surgical History History of appendectomy History of carpal tunnel release History of hemorrhoidectomy History of inguinal hernia repair History of left hip replacement History of left shoulder replacement History of prostatectomy S/P PTCA (percutaneous transluminal coronary angioplasty) Family History Brother CAD (coronary artery disease) Diabetes Heart disease Father CAD (coronary artery disease) Heart disease Sister CAD (coronary artery disease) Cancer Diabetes Heart disease Mother Diabetes Stroke Grandmother Diabetes Denies family history of Clotting disorder Dementia Chronic kidney disease (CKD) Suicide Anesthesia complication Bleeding disorder Lung disease Social History Smoking and tobacco status: former smoker Alcohol intake: never History of recent travel: No Physical Exam Const: COMMON NORMALS: no acute distress, average body habitus, patient oriented x3, no limitations, healthy appearing, alert and well nourished GENERAL APPEARANCE: cooperative, comfortable, well kempt and well developed ORIENTATION/CONSCIOUSNESS: Yes awake, Yes oriented to person, Yes oriented to place and Yes oriented to time HENMT: COMMON NORMALS: normocephalic, external ears normal and Normal external nose present HEAD & SCALP: normal to inspection and normocephalic NOSE: Normal external nose present EXTERNAL EAR: Yes external ears normal MOUTH: Normal oral and palatal mucosa present THROAT: posterior oropharynx normal Eye: COMMON NORMALS: Equal, round and reactive pupils present and EOMs intact bilaterally GENERAL EYE: appearance normal, both eyes and all related structures PUPIL: Yes Equal, round and reactive pupils present Neck/C-Spine: COMMON NORMALS: full ROM, no lymphadenopathy, no meningeal signs and no JVD GENERAL: Yes normal visual inspection Lymph: LYMPHATIC: no lymphadenopathy noted Chest: COMMONS NORMALS: normal inspection of the chest and normal palpation of entire chest wall Resp: COMMON NORMALS: normal respiratory effort, No retractions, No use of accessory muscles, clear to auscultation bilaterally and percussion normal EFFORT & INSPECTION: Yes able to speak in complete sentences AUSCULTATION: clear to auscultation bilaterally PERCUSSION: percussion normal Cardio: COMMON NORMALS: no JVD, S1 normal heart sound present, S2 normal heart sound present and Peripheral pulses 2+ throughout RATE: tachycardic RHYTHM: abnormal rhythm irregularly irregular HEART SOUNDS: S1 normal heart sound present and S2 normal heart sound present PERIPHERAL PULSES: Peripheral pulses 2+ throughout OTHER: A. fib RVR rate 120s to 130 GI: COMMON NORMALS: Normal to inspection, nondistended, normoactive bowel sounds present, Soft to palpation, non-tender and no masses INSPECTION: Yes normal to inspection PALPATION: Yes Soft to palpation : COMMON NORMALS: Yes no CVA tenderness BLADDER/KIDNEY EXAM: Yes no CVA tenderness Back/Pelvis: COMMON NORMALS: no CVA tenderness, thoracic and lumbar spine normal to inspection, no thoracic nor lumbar tenderness and thoraco-lumbar ROM normal Extremity: COMMON NORMALS: normal to inspection, full ROM, capillary refill normal, no joint enlargement and no pedal edema GENERAL: Yes normal exam except as noted Neuro: COMMON NORMALS: patient oriented x3, CN's II-XII intact bilaterally, moves all extremities, no focal motor deficits, no sensory deficits noted and gait normal SENSORIUM/ORIENTATION: Yes alert, Yes oriented to person, Yes oriented to place and Yes oriented to time MENINGEAL SIGNS: Yes no meningeal signs Psych: COMMON NORMALS: mental status grossly normal, Normal thought process present, cooperative, normal affect and speech normal APPEARANCE: Yes well kempt ATTITUDE: Yes calm SPEECH: Yes normal speech THOUGHT PROCESS: Normal thought process present Skin: COMMON NORMALS: no rashes or lesions noted GENERAL SKIN EXAM: no rashes or lesions noted Course Vital Signs: Vital signs: Vital Signs Temperature 97.9 F 09/08/20 10:52 Pulse Rate 115 H 09/08/20 12:00 Respiratory Rate 24 H 09/08/20 12:00 Blood Pressure 107/88 09/08/20 12:00 Pulse Oximetry 95 09/08/20 12:00 MDM - SOB/Dyspnea MDM Narrative: Medical decision making narrative: Telemetry noticed A. fib RVR with a rate in the upper 120s low 130s. He was given 10 of Cardizem IV as he was during his previous visit with great improvement of his shortness of breath. Heart rate also declined to around 100s/ upper 90s. It continued to trickle up and he has had multiple visits for this. He was admitted a month ago with multiple medication changes that were stopped or reduced and the patient is unclear if they are supposed to be started again. Discussed with Dr. Sherman who knows this patient and there are also psychosocial issues as well. He recommended keeping observation and switching to esmolol drip which was done. Discussed with Dr. Brandt who accepts for observation. Lab Data: Labs: Lab Results 09/08/20 09/08/20 09/08/20 Range/Units 11:13 11:13 11:13 WBC 10.5 H (4.0-10.0) 10^3/ uL RBC 4.43 (4.1-5.3) 10^6/u L Hgb 13.4 (11.7-16.6) g/dL Hct 41.9 L (42.0-52.0) % MCV 94.6 H (80-94) fL MCH 30.2 (28.0-34.0) pg MCHC 32.0 (30.0-36.0) g/dL RDW 16.0 H (12.1-15.1) % Plt Count 196 (130-400) 10^3/c mm MPV 11.2 H (7.4-10.4) fL Neut % (Auto) 80.0 % Lymph % (Auto) 12.2 % [place] % (Auto) 6.6 % Eos % (Auto) 0.6 % Baso % (Auto) 0.2 % Neut # (Auto) 8.37 H (1.8-7.7) 10^3/u L Lymph # (Auto) 1.3 (0.8-4.8) 10^3/u L [place] # (Auto) 0.7 (0.2-0.9) 10^3/u L Eos # (Auto) 0.1 (0.0-0.8) 10^3/u L Baso # (Auto) 0.0 (0.0-0.1) 10^3/u L Nucleated RBC % (a uto) 0 % Nucleated RBCs # 0.0 /100WBC D-Dimer (0-0.59) ug/mIFE U Carbon Dioxide 27 (22-29) mmol/L GFR Calculation Not Reportable Glucose 95 (65-115) mg/dL Calcium 8.8 (8.5-10.5) mg/dL Total Bilirubin 0.7 (0.15-1.2) mg/dL AST 39 (0-40) U/L Alkaline Phosphata se 112 (40-130) IU/L Troponin T Baselin e 60 H (0-15) ng/L Troponin T 120 Min [place] (0-15) ng/L Delta Troponin T (0-10) ABS# Albumin 3.6 (3.5-5.2) g/dL Globulin 2.8 (1.3-4.6) g/dL TSH 3.49 (0.27-4.20) uIU/ mL Urine Color (Yellow) Urine Appearance (CLEAR) Urine pH (5-7) Ur Specific Gravit y (1.005-1.030) Urine Protein (Negative) Urine Glucose (UA) (Normal) Urine Ketones (Negative) Urine Blood (Negative) Urine Nitrate (Negative) Urine Bilirubin (Negative) Urine Urobilinogen (Negative) mg/dL Ur Leukocyte Reyna ase (Negative) SARS-CoV-2 Ag (Rap id) (Negative) 09/08/20 09/08/20 09/08/20 Range/Units 11:13 11:30 12:02 WBC (4.0-10.0) 10^3/ uL RBC (4.1-5.3) 10^6/u L Hgb (11.7-16.6) g/dL Hct (42.0-52.0) % MCV (80-94) fL MCH (28.0-34.0) pg MCHC (30.0-36.0) g/dL RDW (12.1-15.1) % Plt Count (130-400) 10^3/c mm MPV (7.4-10.4) fL Neut % (Auto) % Lymph % (Auto) % [place] % (Auto) % Eos % (Auto) % Baso % (Auto) % Neut # (Auto) (1.8-7.7) 10^3/u L Lymph # (Auto) (0.8-4.8) 10^3/u L [place] # (Auto) (0.2-0.9) 10^3/u L Eos # (Auto) (0.0-0.8) 10^3/u L Baso # (Auto) (0.0-0.1) 10^3/u L Nucleated RBC % (a uto) % Nucleated RBCs # /100WBC D-Dimer 0.77 H (0-0.59) ug/mIFE U Carbon Dioxide (22-29) mmol/L GFR Calculation Glucose (65-115) mg/dL Calcium (8.5-10.5) mg/dL Total Bilirubin (0.15-1.2) mg/dL AST (0-40) U/L Alkaline Phosphata se (40-130) IU/L Troponin T Baselin e (0-15) ng/L Troponin T 120 Min [place] (0-15) ng/L Delta Troponin T (0-10) ABS# Albumin (3.5-5.2) g/dL Globulin (1.3-4.6) g/dL TSH (0.27-4.20) uIU/ mL Urine Color Straw (Yellow) Urine Appearance Clear (CLEAR) Urine pH 6 (5-7) Ur Specific Gravit y 1.015 (1.005-1.030) Urine Protein Neg (Negative) Urine Glucose (UA) Norm (Normal) Urine Ketones Negative (Negative) Urine Blood Neg (Negative) Urine Nitrate Negative (Negative) Urine Bilirubin Neg (Negative) Urine Urobilinogen Norm (Negative) mg/dL Ur Leukocyte Reyna ase Negative (Negative) SARS-CoV-2 Ag (Rap id) Negative (Negative) 09/08/20 Range/Units 13:50 WBC (4.0-10.0) 10^3/ uL RBC (4.1-5.3) 10^6/u L Hgb (11.7-16.6) g/dL Hct (42.0-52.0) % MCV (80-94) fL MCH (28.0-34.0) pg MCHC (30.0-36.0) g/dL RDW (12.1-15.1) % Plt Count (130-400) 10^3/c mm MPV (7.4-10.4) fL Neut % (Auto) % Lymph % (Auto) % [place] % (Auto) % Eos % (Auto) % Baso % (Auto) % Neut # (Auto) (1.8-7.7) 10^3/u L Lymph # (Auto) (0.8-4.8) 10^3/u L [place] # (Auto) (0.2-0.9) 10^3/u L Eos # (Auto) (0.0-0.8) 10^3/u L Baso # (Auto) (0.0-0.1) 10^3/u L Nucleated RBC % (a uto) % Nucleated RBCs # /100WBC D-Dimer (0-0.59) ug/mIFE U Carbon Dioxide (22-29) mmol/L GFR Calculation Glucose (65-115) mg/dL Calcium (8.5-10.5) mg/dL Total Bilirubin (0.15-1.2) mg/dL AST (0-40) U/L Alkaline Phosphata se (40-130) IU/L Troponin T Baselin e (0-15) ng/L Troponin T 120 Min [place] 50.23 H (0-15) ng/L Delta Troponin T -9.77 L (0-10) ABS# Albumin (3.5-5.2) g/dL Globulin (1.3-4.6) g/dL TSH (0.27-4.20) uIU/ mL Urine Color (Yellow) Urine Appearance (CLEAR) Urine pH (5-7) Ur Specific Gravit y (1.005-1.030) Urine Protein (Negative) Urine Glucose (UA) (Normal) Urine Ketones (Negative) Urine Blood (Negative) Urine Nitrate (Negative) Urine Bilirubin (Negative) Urine Urobilinogen (Negative) mg/dL Ur Leukocyte Reyna ase (Negative) SARS-CoV-2 Ag (Rap id) (Negative) Discharge Plan Discharge Patient Disposition: Placed in Observation Clinical Impression: Atrial fibrillation with RVR Coding Level of Care Code ED Stamp Machine Servicer for Chg Fwd Exam Comprehensive
[2020-09-08 11:25] LABS: Basophils % 0.2 %; Eosinophils # 0.1 10^3/uL (0.0-0.8); Eosinophils % 0.6 %; Hematocrit 41.9 % (42.0-52.0); Hemoglobin 13.4 g/dL (11.7-16.6); Lymphocytes # 1.3 10^3/uL (0.8-4.8); Lymphocytes % 12.2 %; Mean Corpuscular Hemoglobin 30.2 pg (28.0-34.0); Mean Corpuscular Volume 94.6 fL (80-94); Mean Platelet Volume 11.2 fL (7.4-10.4); Monocytes # 0.7 10^3/uL (0.2-0.9); Monocytes % 6.6 %; Neutrophils # 8.37 10^3/uL (1.8-7.7); Nucleated Red Blood Cells % 0 %; Platelet Count 196 10^3/cmm (130-400); Red Blood Count 4.43 10^6/uL (4.1-5.3); White Blood Count 10.5 10^3/uL (4.0-10.0)
[2020-09-08] MEDS: sodium chloride 0.9% 500 ML IV (11:30)
[2020-09-08 11:48] LABS: Troponin(5th) Baseline 60 ng/L (0-15)
[2020-09-08 11:50] LABS: Add Urine Microscopic? NO; Charge for UA Resulting for Rev
[2020-09-08 11:52] LABS: Urine Appearance Clear (CLEAR); Urine Color Straw (Yellow)
[2020-09-08 11:53] LABS: Bilirubin Urine Neg (Negative); Blood Urine Neg (Negative); Glucose Urine UA Norm (Normal); Ketones Urine Negative (Negative); Leukocyte Esterase Urine Negative (Negative); Nitrate Urine Negative (Negative); Protein Urine Neg (Negative); Specific Gravity, Urine 1.015 (1.005-1.030); Urobilinogen Urine Norm (Negative); pH Urine 6 (5-7)
[2020-09-08 12:17] LABS: D Dimer 0.77 ug/mIFEU (0-0.59)
[2020-09-08 12:34] LABS: SARS Covid-2 Antigen Negative (Negative)
--- NOTE | 2020-09-08 13:14 | ECG_ITS ---
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 Measurements Intervals [place] Rate: 106 P: [place]: QRS: -79 QRSD: 109 T: 91 QT: 355 QTc: 472 Interpretive Statements ATRIAL FIBRILLATION WITH RAPID VENTRICULAR RESPONSE LEFT ANTERIOR FASCICULAR BLOCK [QRS AXIS <= -45, QR IN I, RS IN II] ANTEROSEPTAL MYOCARDIAL INFARCTION [40+ ms Q WAVE IN V1-V4], PROBABLY OLD Possible old inferior wall PA Compared to ECG 09/08/2020 11:46:33 No significant changes Electronically Signed On 09-08-2020 19:36:36 CDT by Red Sherman M.D. [id number]
[2020-09-08 14:17] LABS: Troponin 5 2HR 50.23 ng/L (0-15)
[2020-09-08 14:20] LABS: Alanine Aminotransferase 44 U/L (0-41); Albumin Level 3.6 g/dL (3.5-5.2); Alkaline Phosphatase 112 IU/L (40-130); Aspartate Amino Transferase 39 U/L (0-40); Blood Urea Nitrogen 26 mg/dL (8-23); Calcium 8.8 mg/dL (8.5-10.5); Carbon Dioxide 27 mmol/L (22-29); Globulin 2.8 g/dL (1.3-4.6); Glucose 95 mg/dL (65-115); Thyroid Stimulating Hormone 3.49 uIU/mL (0.27-4.20); Total Bilirubin 0.7 mg/dL (0.15-1.2); Total Protein 6.4 g/dL (6.6-8.7)
--- NOTE | 2020-09-08 14:35 | PM.HP ---
Providers/Chief Complaint Primary Care Provider: Raymond Reddy MD Chief Complaint: SOB History of Present Illness Stanislav Wu is a 80 year old male who has multiple comorbid conditions was recently discharged on 08/06 after management of heat exhaustion, polypharmacy, his Lasix, spironolactone and lisinopril were discontinued secondary to worsening kidney function(EF 35 to 40%) and metoprolol dose was decreased to 25 mg daily presented today with chief complaint of worsening shortness of breath. Patient is stating that he started experiencing mild shortness of breath last night which she is describing as orthopnea and PND, he felt better when he slept in his recliner. With this shortness of breath he did not experience any chest pain no recent fever, flulike symptoms myalgias or diarrhea. 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 Diagnostics in the ER revealed A. fib with RVR he was given Cardizem 10 mg IV push which did not improve his heart rate Dr. Sherman recommended esmolol gtt. secondary to mildly reduced ejection fraction. Normal potassium and magnesium level, normal TSH EKG without ischemic or infarctive changes downtrending troponin. Patient has history of coronary disease status post 16 stents. Endorsing history of cardiac arrest with anesthesia, high risk for any kind of surgical intervention however AICD has not been placed for secondary prevention Of note, hypoechoic solid mass posterior to urine bladder was found however CT scan abdomen did not show any mass he has multiple renal cysts largest measuring 4 cm, cholelithiasis without active symptoms. Review of Systems Const: Denies: fever(s) Eyes: Denies: change in vision ENMT: Denies: throat pain Card: Reports: irregular heart rhythm, dyspnea on exertion and orthopnea; Denies: chest pain Resp: Reports: dyspnea GI: Denies: abdominal pain : Denies: flank pain Musc: Denies: neck pain Skin/Breast: Denies: rash Neuro: Denies: headache(s) Psych: Denies: anxiety Endo: Denies: polyuria [place]/Lymph: Denies: easy bruising All/Imm: Denies: urticaria Medications/Allergies Home Medications Medication Instructions Recorded Confirmed Last Taken Type polyethylene glycol 3350 [Miralax] 17 gm PO DAILY@1700 02/29/20 08/22/20 08/03/20 21:00 History ascorbic acid (vitamin C) 500 mg 500 mg PO BID@03/08/20 08/22/20 08/03/20 History tablet,extended release omega-3 fatty acids 1,000 mg 1,000 mg PO DAILY@07 03/08/20 08/22/20 08/03/20 06:00 History capsule brimonidine 1 drp OPHTHALMIC (EYE) BID@05/02/20 08/22/20 08/03/20 21:00 History latanoprost 1 drp OPHTHALMIC (EYE) BID@05/02/20 08/22/20 08/03/20 21:00 History omeprazole 20 mg PO BID@05/02/20 08/22/20 08/03/20 21:00 History vitamin E 400 unit PO DAILY@06 05/02/20 08/22/20 08/03/20 History CPAP #1 ea 05/07/20 08/22/20 Unknown Rx atorvastatin 80 mg PO DAILY@1700 08/04/20 08/22/20 08/03/20 History clopidogrel 75 mg PO DAILY@0600 08/04/20 08/22/20 08/03/20 History ezetimibe 10 mg PO DAILY@0608/04/20 08/22/20 08/03/20 History hydrocodone-acetaminophen 1 tab PO Q8H PRN 08/04/20 08/22/20 08/03/20 12:00 History nitroglycerin 0.4 mg SUBLINGUAL Q5M PRN MDD 3 08/04/20 08/22/20 Unknown History tabs isosorbide mononitrate 30 mg PO DAILY@0600 #0 tab 08/06/20 08/22/20 08/03/20 Rx apixaban 5 mg tablet 5 mg PO Q12H #60 tab 08/10/20 08/22/20 Unknown Rx fentanyl 50 mcg/hr transdermal 50 mcg TOPICAL Q72H 30 Days #10 ea 08/22/20 08/22/20 Unknown Rx patch furosemide 40 mg tablet 40 mg PO BID #180 tab 08/22/20 08/22/20 Unknown Rx potassium chloride 20 mEq 20 meq PO BID #180 tab 08/22/20 08/22/20 Unknown Rx tablet,extended release(part/cryst) sacubitril 24 mg-valsartan 26 mg 1 tab PO BID #60 tab 08/22/20 Unknown Rx tablet valsartan 80 mg tablet 80 mg PO BID #180 tab 08/28/20 Unknown Rx allopurinol 100 mg PO BID 09/08/20 09/08/20 09/08/20 History diltiazem HCl 120 mg PO DAILY MDD see pharmacy 09/08/20 09/08/20 Unknown History comment lisinopril 40 mg PO DAILY 09/08/20 09/08/20 09/08/20 History meloxicam 15 mg PO DAILY 09/08/20 09/08/20 09/08/20 History metoprolol tartrate 25 mg PO BID MDD see pharmacy 09/08/20 09/08/20 Unknown History comment Allergies Allergy/AdvReac Type Severity Reaction Status Date / Time No Known Allergies Allergy Verified 08/22/20 13:37 PFSH Acute PFSH: Medical History (Updated 09/08/20 @ 19:14 by Sheila Brandt MD) 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 LV systolic function is moderately reduced with EF of 35 to 40%. There is severe hypokinesis of anterior and apical peña. Diastolic function is indeterminate because of atrial fibrillation. There is mild to moderate mitral regurgitation. Mild aortic regurgitation is seen. Mild pulmonic regurgitation is present. RVSP is 45 to 50 mmHg consistent with moderate pulmonary hypertension. Compared to prior study from 06/30/2018, LV systolic function is now further decreased to 35 to 40%. Atrial fibrillation Benign essential hypertension with target blood pressure below 140/90 Cardiac arrest High risk for any kind of surgical intervention, because of history of cardiac arrest with general anesthesia Cardiac LV ejection fraction >40% Congestive heart failure Dyslipidemia (high LDL; low HDL) Erectile dysfunction Essential (primary) hypertension GERD (gastroesophageal reflux disease) Gout Hiatal hernia History of prostate cancer Hx of angiography Ischemic cardiomyopathy History of 16 stents Mitral valve regurgitation Osteoarthritis VENU (stress urinary incontinence), male Surgical History History of appendectomy History of carpal tunnel release History of hemorrhoidectomy History of inguinal hernia repair History of left hip replacement History of left shoulder replacement History of prostatectomy S/P PTCA (percutaneous transluminal coronary angioplasty) Family History Brother CAD (coronary artery disease) Diabetes Heart disease Father CAD (coronary artery disease) Heart disease Sister CAD (coronary artery disease) Cancer Diabetes Heart disease Mother Diabetes Stroke Grandmother Diabetes Denies family history of Clotting disorder Dementia Chronic kidney disease (CKD) Suicide Anesthesia complication Bleeding disorder Lung disease Social History Smoking and tobacco status: former smoker Alcohol intake: never History of recent travel: No Vitals/I&O/Wt Last Vital Signs Temp 97.9 F 09/08/20 10:52 Pulse 115 H 09/08/20 12:00 Resp 24 H 09/08/20 12:00 BP 107/88 09/08/20 12:00 Pulse Ox 95 09/08/20 12:00 Weight last 48 hrs Weight 68.039 kg Physical Exam Narrative: EXAM NARRATIVE: Very pleasant elderly male No active sign of congestive heart failure Appears stated age Clinically does not look fluid overloaded or dehydrated S1, S2 variable no active signs of decompensated heart failure no active murmur appreciated Abdomen soft nontender bowel sound present No right upper quadrant tenderness Lower symmetry no edema gangrene also Appropriate mood and affect EOMI, PERRLA GCS 15 no neurological deficit no joint swelling or cellulitis Data : 09/08/20 11:13 09/08/20 11:13 A&P Assessment and plan (1) Atrial fibrillation with RVR: Status: Acute (2) Dyspnea on exertion: Status: Acute Additional A&P Information 80-year-old male with established history of coronary artery disease status post 16 stents, history of cardiac arrest with general anesthesia, considered high risk for any kind of surgical intervention, history of chronic atrial fibrillation, anticoagulation with Eliquis presented today with chief complaint of shortness of breath on exertion A. fib acute RVR Potassium magnesium normal, TSH normal No signs of ACS syndrome No active chest pain This most likely is related to suboptimal doses of AV nnamdi blocking agent I would increase metoprolol dose to 50 mg twice a day and keep him on esmolol drip for now which is running at 100 mics per KG per minute Admit to telemetry floor Titrate off esmolol gtt. Reduce ejection fraction heart failure with ischemic cardiomyopathy No acute decompensation I would continue his home regimen of Lasix for now History of gout: Continue allopurinol 200mg a day Chronic kidney disease with baseline creatinine 1.3?1.5 would verify Entresto versus valsartan home regimen patient is not sure but stating that he was recently approved for a medication that would cost $1500, hold losartan for now Cardiac diet Full code DVT prophylaxis not indicated currently on Eliquis Attestations Medical Necessity Statement*: Anticipating discharge within 48 hours will need overnight esmolol gtt. for rate control Time Spent in Patient Care: (>than 50% of time spent in counselling and/or direct pt care on unit). 40mins Coding Level of Care Code Acute Traffic Incident Management Manager for Margaret Dinero Diagnoses Atrial fibrillation with RVR I48.91 Dyspnea on exertion R06.00
[2020-09-08 14:36] LABS: Anion Gap 14.1 (5-19); Chloride 103 mmol/L (98-107); Osmolality Calculated 295 mOsm/kg (285-295); Potassium 4.1 mmol/L (3.5-5.1); Sodium 140 mmol/L (136-145)
[2020-09-08] MEDS: esmolol drip 2,500 MG/250 ML PREMIX 20.41 MG IV ×2 (14:57→21:30)
[2020-09-08 15:05] LABS: Magnesium 2.3 mg/dL (1.7-2.3)
--- NOTE | 2020-09-08 17:14 | ECG_ITS ---
[facility] Test Date: 2020-09-08 Pat Name: Stanislav Wu Department: Room: 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 Measurements Intervals [place] Rate: 127 P: [place]: QRS: -61 QRSD: 110 T: 92 QT: 352 QTc: 512 Interpretive Statements Atrial fibrillation WITH RAPID VENTRICULAR RESPONSE WITH ABERRANT CONDUCTION OR VENTRICULAR PREMATURE COMPLEXES INFERIOR MYOCARDIAL INFARCTION [40+ ms Q WAVE AND/OR ST/T ABNORMALITY IN II/aVF], PROBABLY OLD ANTEROSEPTAL MYOCARDIAL INFARCTION [40+ ms Q WAVE IN V1-V4], PROBABLY OLD Compared to ECG 09/08/2020 14:14:17 Ventricular premature complex(es) now present Aberrant conduction of supraventricular beat(s) now present Atrial fibrillation no longer present Left anterior fascicular block no longer present Myocardial infarct finding still present Electronically Signed On 09-08-2020 19:37:32 CDT by Red Sherman M.D. [id number]
[2020-09-08] MEDS: apixaban 5 mg Tablet PO (18:03)
[2020-09-08] MEDS: atorvastatin 40 mg Tablet 80 MG PO (18:03)
[2020-09-08 18:23] LABS: Troponin 5 6HR 49.86 ng/L (0-15)
--- NOTE | 2020-09-08 19:40 | P.CONIM_ITS ---
Providers/Reason For Consult Consulting Physician/Specialty*: FLAKITA Sherman MD/ Cardiology Reason for Consult*: She with atrial fibrillation/rapid ventricular rate, cardiomyopathy/ASHD Attending Physician: Sheila Brandt MD Primary Care Provider: Raymond Reddy MD History of Present Illness History of Present Illness Stanislav Wu is a 80 year old male, is admitted to the hospital through the emergency room, where he presented with complaints of progressive shortness of breath. Mrs. Wu is known to have chronic atrial fibrillation, chronic systolic heart failure and atherosclerotic heart disease. For the last several weeks, he been having significant shortness of breath with activities. We have been trying to adjust the dose of the diuretics. Last month, he was admitted to the hospital with nausea vomiting and dehydration. He was found to have features of acute kidney injury. Many of his medications were changed at that time. He was hypotensive for a while. So he was taken off many of his medications. Concern about his medication compliance. He seems to be forgetful and at times confused with medications. Since last night, he been having increasing shortness of breath. He was wanting to come to the hospital last night but because of his , who had a procedure yesterday, he did not want to leave her at home alone. This morning, the shortness of breath started getting worse. For that reason, he was brought to the hospital by his family. Patient denies any chest pain. His heart rate shown on the blood pressure monitor has been staying in the 100 250 range for the last couple of weeks, as per the patient. He has no fever, chills or any significant cough. He has a lot of back pain and joint pains. Is mostly from the osteoarthritis. He had a myocardial perfusion imaging in May of this year. He was found to have no significant ischemia, based on the perfusion scan. He had the most recent cardiac catheterization in 2018. At that time, he was found to have subtotal occlusion of the stented segment of the proximal intermedius artery. Moderately severe in-stent narrowing in the proximal right coronary artery and moderate to severe diffuse disease in the distal LAD. He underwent PCI of these lesions at that time. His LV ejection fraction was 35 to 40% by echocardiogram in February of this year. Review of Systems Narrative: GENERAL: The patient is alert and oriented times three. Not in any acute distress. [] HEENT: No significant pallor, icterus or lymphadenopathy. The pupils are reactant to light. Oral cavity: There are no mucous membrane lesions. Funduscopic examination: The disk margins appear to be sharp with no exudates or hemorrhages. [] NECK: Trachea appears to be central. No masses noted. No JVD or thyromegaly appreciated. No carotid bruit. [] RESPIRATORY: Chest is symmetrical. No intercostals muscle retraction or any accessory muscle activation. There is no chest wall tenderness. Breath sounds are heard bilaterally. No rales or rhonchi heard. No evidence of any consolidation. [] BREASTS: Deferred. [] HEART: The PMI is in the 5th left intercostals space just inside the midclavicular line. No palpable precordial events. S1 and S2 are normal. No S3 or S4 heard. No pericardial rub or any click heard. [] ABDOMEN: No vessel pulsations or distention. No tenderness. No organomegaly appreciated. No abdominal bruit. Bowel sounds are normally heard. [] : Deferred. [] RECTAL: Deferred. [] LYMPHATIC: No lymphadenopathy noted in the neck or groin. [] EXTREMITIES: No edema or cyanosis. No clubbing. The pulses are symmetrical bilaterally. The radial, femoral, dorsalis pedis and the posterior tibial pulses are palpated and found to be in good volume and amplitude. [] MUSCULOSKELETAL: Gait is normal. There is no joint deformity or swelling noted. No joint tenderness or any effusion. The shoulder and hip joints appear to have normal range of motion. [] SKIN: There are no significant scars or skin rash noted. [] NEUROPSYCHIATRIC: The patient is alert and oriented x3. Appears to be in a good mood. The higher functions are grossly within normal limits. No tremors or rigidity noted. []CONSTITUTIONAL: No fever or chills. EYES: No blurring of vision or other visual disturbances lately. ENT: No hoarseness of voice, auditory disturbances or sore throat. CARDIOVASCULAR: As mentioned above. RESPIRATORY: Progressive shortness of breath. Obstructive sleep apnea, on CPAP GASTROINTESTINAL: No hematemesis or melena. GENITOURINARY: No dysuria or hematuria. INTEGUMENTARY: No skin rashes or history of skin cancer. NEURO: No transient ischemic attacks or amaurosis. PSYCHIATRIC: No history of psychosis or major depression. HEMATOLOGIC: No bleeding disorders or significant anemia. ENDOCRINE: No history of polyuria or polydipsia. MUSCULOSKELETAL: Degenerative joint disease ALLERGY/IMMUNOLOGY: As mentioned above. Meds/Allergies Home Medications and Allergies Home Medications Medication Instructions Recorded Confirmed Last Taken Type polyethylene glycol 3350 [Miralax] 17 gm PO DAILY@1700 02/29/20 09/08/2009/07 History ascorbic acid (vitamin C) 500 mg 500 mg PO BID@03/08/20 09/08/20 09/08/20 History tablet,extended release omega-3 fatty acids 1,000 mg 1,000 mg PO DAILY@03/08/20 09/08/20 09/08/20 History capsule brimonidine 1 drp OPHTHALMIC (EYE) BID@05/02/20 09/08/20 09/08/20 History latanoprost 1 drp OPHTHALMIC (EYE) BID@05/02/20 09/08/20 09/08/20 History omeprazole 20 mg PO BID@05/02/20 09/08/20 09/08/20 History vitamin E 400 unit PO DAILY@06 05/02/20 09/08/20 09/08/20 History CPAP #1 ea 05/07/20 09/08/20 Unknown Rx atorvastatin 80 mg PO DAILY@1700 08/04/20 09/08/20 09/07/20 History clopidogrel 75 mg PO DAILY@0600 08/04/20 09/08/20 09/08/20 History ezetimibe 10 mg PO DAILY@0600 08/04/20 09/08/20 09/08/20 History hydrocodone-acetaminophen 1 tab PO Q8H PRN 08/04/20 09/08/20 09/08/20 History nitroglycerin 0.4 mg SUBLINGUAL Q5M PRN MDD 3 08/04/20 09/08/20 Unknown History tabs isosorbide mononitrate 30 mg PO DAILY@0600 #0 tab 08/06/20 09/08/20 09/08/20 Rx apixaban 5 mg tablet 5 mg PO Q12H #60 tab 08/10/20 09/08/20 09/08/20 Rx fentanyl 50 mcg/hr transdermal 50 mcg TOPICAL Q72H 30 Days #10 ea 0609/08/20 09/08/20 Rx patch furosemide 40 mg tablet 40 mg PO BID #180 tab 08/22/20 09/08/20 09/08/20 Rx potassium chloride 20 mEq 20 meq PO BID #180 tab 08/22/20 09/08/20 09/08/20 Rx tablet,extended release(part/cryst) sacubitril 24 mg-valsartan 26 mg 1 tab PO BID #60 tab 08/22/20 09/08/20 Unknown Rx tablet valsartan 80 mg tablet 80 mg PO BID #180 tab 08/28/20 09/08/20 09/08/20 Rx allopurinol 100 mg PO BID 09/08/20 09/08/20 09/08/20 History diltiazem HCl 120 mg PO DAILY MDD see pharmacy 09/08/20 09/08/20 Unknown History comment lisinopril 40 mg PO DAILY 09/08/20 09/08/20 09/08/20 History meloxicam 15 mg PO DAILY 09/08/20 09/08/20 09/08/20 History metoprolol tartrate 25 mg PO BID MDD see pharmacy 09/08/20 09/08/20 Unknown History comment Allergies Allergy/AdvReac Type Severity Reaction Status Date / Time No Known Allergies Allergy Verified 08/22/20 13:37 Current Medications Current Medications Generic Name Dose Route Start Last Admin Trade Name Freq PRN Reason Stop Dose Admin Apixaban 5 mg 09/08/20 18:00 09/08/20 18:03 Apixaban 5 Mg Tablet PO 5 mg Q12H TAYLOR Administration Atorvastatin Calcium 80 mg 09/08/20 17:00 09/08/20 18:03 Atorvastatin 40 Mg Tablet PO 80 mg DAILY@1700 TAYLOR Administration Esmolol HCl 2,500 mg in 250 mls @ 0 mls/hr 09/08/20 13:30 09/08/20 14:57 Brevibloc Drip IV 50 mcg/kg/min .Q0M TAYLOR 20.41 mls/hr Administration Protocol Per Protocol PFSH Acute PFSH: Medical History 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 LV systolic function is moderately reduced with EF of 35 to 40%. There is severe hypokinesis of anterior and apical peña. Diastolic function is indeterminate because of atrial fibrillation. There is mild to moderate mitral regurgitation. Mild aortic regurgitation is seen. Mild pulmonic regurgitation is present. RVSP is 45 to 50 mmHg consistent with moderate pulmonary hypertension. Compared to prior study from 06/30/2018, LV systolic function is now further decreased to 35 to 40%. Atrial fibrillation Benign essential hypertension with target blood pressure below 140/90 Cardiac arrest High risk for any kind of surgical intervention, because of history of cardiac arrest with general anesthesia Cardiac LV ejection fraction >40% Congestive heart failure Dyslipidemia (high LDL; low HDL) Erectile dysfunction Essential (primary) hypertension GERD (gastroesophageal reflux disease) Gout Hiatal hernia History of prostate cancer Hx of angiography Ischemic cardiomyopathy History of 16 stents Mitral valve regurgitation Osteoarthritis VENU (stress urinary incontinence), male Surgical History History of appendectomy History of carpal tunnel release History of hemorrhoidectomy History of inguinal hernia repair History of left hip replacement History of left shoulder replacement History of prostatectomy S/P PTCA (percutaneous transluminal coronary angioplasty) Family History Brother CAD (coronary artery disease) Diabetes Heart disease Father CAD (coronary artery disease) Heart disease Sister CAD (coronary artery disease) Cancer Diabetes Heart disease Mother Diabetes Stroke Grandmother Diabetes Denies family history of Clotting disorder Dementia Chronic kidney disease (CKD) Suicide Anesthesia complication Bleeding disorder Lung disease Social History Smoking and tobacco status: former smoker Alcohol intake: never History of recent travel: No Vitals/I&O/Wt Last Vital Signs Temp 97.9 F 09/08/20 10:52 Pulse 132 H 09/08/20 16:00 Resp 15 09/08/20 16:00 BP 124/94 09/08/20 16:00 Pulse Ox 95 09/08/20 16:00 Weight last 48 hrs Weight 150 lb Physical Exam Narrative: EXAM NARRATIVE: GENERAL: The patient is alert and oriented times three. Slightly tachypneic. Very hard of hearing. HEENT: No significant pallor, icterus or lymphadenopathy. The pupils are r eactant to light. Oral cavity: There are no mucous membrane lesions. Funduscopic examination: The fundus is not visualized. NECK: Trachea appears to be central. No masses noted. The neck veins are en gorged. No thyromegaly appreciated. No carotid bruit. RESPIRATORY: Chest is symmetrical. No intercostals muscle retraction or any accessory muscle activation. There is no chest wall tenderness. Breath sounds are heard bilaterally. Few fine rales at the bases. No evidence of consolidation. HEART: The PMI is not palpated. No palpable precordial events. The first heart sound is variable. Second arteries normal. Systolic murmur grade 3/6 in the mitral area. No diastolic murmurs. No S3 or S4 heard. No pericardial rub or any click heard. ABDOMEN: No vessel pulsations or distention. No tenderness. No organomegaly appreciated. No abdominal bruit. Bowel sounds are normally heard. : Deferred. RECTAL: Deferred. LYMPHATIC: No lymphadenopathy noted in the neck or groin. EXTREMITIES: No edema or cyanosis. No clubbing. The peripheral pulses are palpable but weak bilaterally. Extremities are warm. MUSCULOSKELETAL: No acute joint deformities or swelling SKIN: There are no significant scars or skin rash noted. NEUROPSYCHIATRIC: The patient is alert and oriented x3. Appears to be in a good mood. The higher functions are grossly within normal limits. No tremors or rigidity noted. Data Labs: Other Labs: [facility] 06/21/2020 1. Moderate to large areas of persistent decreased tracer uptake in the anterior, inferior, anteroseptal and anterolateral wall regions, suggestive of myocardial scarring in the distribution of all the 3 coronary arteries. 2. Multiple wall motion of abnormalities as mentioned above. 3. Moderately dilated LV cavity, end-systolic volume of 146 mm 4. Diminished LV ejection fraction of 30%. 5. Slightly elevated transient ischemic dilatation ratio, may suggest endocardial ischemia. The positive predictive value is low. Clinical correlation is recommended Echo 03/01/20 Left ventricle is mildly dilated. LV systolic function is moderately reduced with EF of 35 to 40%. There is severe hypokinesis of anterior and apical peña. Diastolic function is indeterminate because of atrial fibrillation. There is mild to moderate mitral regurgitation. Mild aortic regurgitation is seen. Mild pulmonic regurgitation is present. RVSP is 45 to 50 mmHg consistent with moderate pulmonary hypertension. Compared to prior study from 06/30/2018, LV systolic function is now further decreased to 35 to 40 Imaging^: CTA Chest: Radiologist's impression: . No pulmonary embolism. No pneumonia. 2. New interstitial edema but without pleural effusion. 3. New central adenopathy. This could be reactive but needs clinical correlation.. 4. Increased enlargement of the ascending thoracic aorta up to 4.2 cm. 5. Other chronic and incidental findings as described. Laboratory Last Values WBC 10.5 10^3/uL (4.0 -10.0) H 09/08/20 11:13 RBC 4.43 10^6/uL (4.1 -5.3) 09/08/20 11:13 Hgb 13.4 g/dL (11.7-1 6.6) 09/08/20 11:13 Hct 41.9 % (42.0-52.0 ) L 09/08/20 11:13 MCV 94.6 fL (80-94) H 09/08/20 11:13 MCH 30.2 pg (28.0-34. 0) 09/08/20 11:13 MCHC 32.0 g/dL (30.0-3 6.0) 09/08/20 11:13 RDW 16.0 % (12.1-15.1 ) H 09/08/20 11:13 Plt Count 196 10^3/cmm (130 -400) 09/08/20 11:13 MPV 11.2 fL (7.4-10.4 ) H 09/08/20 11:13 Neut % (Auto) 80.0 % 09/08/20 11:13 Lymph % (Auto) 12.2 % 09/08/20 11:13 Leslie % (Auto) 6.6 % 09/08/20 11:13 Eos % (Auto) 0.6 % 09/08/20 11:13 Baso % (Auto) 0.2 % 09/08/20 11:13 Neut # (Auto) 8.37 10^3/uL (1.8 -7.7) H 09/08/20 11:13 Lymph # (Auto) 1.3 10^3/uL (0.8- 4.8) 09/08/20 11:13 Leslie # (Auto) 0.7 10^3/uL (0.2- 0.9) 09/08/20 11:13 Eos # (Auto) 0.1 10^3/uL (0.0- 0.8) 09/08/20 11:13 Baso # (Auto) 0.0 10^3/uL (0.0- 0.1) 09/08/20 11:13 Nucleated RBC % (a uto) 0 % 09/08/20 11:13 Nucleated RBCs # 0.0 /100WBC 09/08/20 11:13 D-Dimer 0.77 ug/mIFEU (0- 0.59) H 09/08/20 11:13 Sodium 140 mmol/L (136-1 45) 09/08/20 11:13 Potassium 4.1 mmol/L (3.5-5 .1) 09/08/20 11:13 Chloride 103 mmol/L (98-10 7) 09/08/20 11:13 Carbon Dioxide 27 mmol/L (22-29) 09/08/20 11:13 Anion Gap 14.1 (5-19) 09/08/20 11:13 BUN 26 mg/dL (8-23) H 09/08/20 11:13 Creatinine 1.5 mg/dL (0.7-1. 2) H 09/08/20 11:13 GFR Calculation Not Reportable 09/08/20 11:13 Glucose 95 mg/dL (65-115) 09/08/20 11:13 Calculated Osmolal ity 295 mOsm/kg (285- 295) 09/08/20 11:13 Calcium 8.8 mg/dL (8.5-10 .5) 09/08/20 11:13 Magnesium 2.3 mg/dL (1.7-2. 3) 09/08/20 13:50 Total Bilirubin 0.7 mg/dL (0.15-1 .2) 09/08/20 11:13 AST 39 U/L (0-40) 09/08/20 11:13 ALT 44 U/L (0-41) H 09/08/20 11:13 Alkaline Phosphata se 112 IU/L (40-130) 09/08/20 11:13 Troponin T Baselin e 60 ng/L (0-15) H 09/08/20 11:13 Troponin T 120 Min ramona 50.23 ng/L (0-15) H 09/08/20 13:50 Delta Troponin T -9.77 ABS# (0-10) L 09/08/20 13:50 Troponin T Hi Sens 6Hr 49.86 ng/L (0-15) H 09/08/20 17:52 Troponin T Hi Sens 6Hr Delta -10.14 ng/L (0-12 ) L 09/08/20 17:52 NT-Pro-B Natriuret Pep 29703 pg/mL (0-45 0) H 09/08/20 11:13 Total Protein 6.4 g/dL (6.6-8.7 ) L 09/08/20 11:13 Albumin 3.6 g/dL (3.5-5.2 ) 09/08/20 11:13 Globulin 2.8 g/dL (1.3-4.6 ) 09/08/20 11:13 TSH 3.49 uIU/mL (0.27 -4.20) 09/08/20 11:13 Urine Color Straw (Yellow) 09/08/20 11:30 Urine Appearance Clear (CLEAR) 09/08/20 11:30 Urine pH 6 (5-7) 09/08/20 11:30 Ur Specific Gravit y 1.015 (1.005-1.0 30) 09/08/20 11:30 Urine Protein Neg (Negative) 09/08/20 11:30 Urine Glucose (UA) Norm (Normal) 09/08/20 11:30 Urine Ketones Negative (Negati ve) 09/08/20 11:30 Urine Blood Neg (Negative) 09/08/20 11:30 Urine Nitrate Negative (Negati ve) 09/08/20 11:30 Urine Bilirubin Neg (Negative) 09/08/20 11:30 Urine Urobilinogen Norm mg/dL (Negat mae) 09/08/20 11:30 Ur Leukocyte Reyna ase Negative (Negati ve) 09/08/20 11:30 SARS-CoV-2 Ag (Rap id) Negative (Negati ve) 09/08/20 12:02 A&P Assessment and plan (1) Acute on chronic systolic heart failure: Currently appears to be in a decompensated heart failure. Most likely the atrial fibrillation with rapid ventricular rate might be causing the decompensation. Patient may be treated with IV diuresis and heart rate control measures. Status: Acute (2) Atrial fibrillation with RVR: I may give him 0.5 mg of digoxin. He was started on IV esmolol. This may be titrated. I may discontinue the p.o. Cardizem at this point. Status: Acute (3) Atherosclerotic heart disease of [place] coronary artery without angina pectoris: Patient may be continued on the Plavix and the Eliquis. Status: Acute (4) Chronic anticoagulation: Patient is on Eliquis and has no bleeding complications. Status: Chronic (5) Mitral valve regurgitation: Status: Chronic Qualifiers: Cardiac valve disease etiology: nonrheumatic Qualified Code(s): I34.0 - Nonrheumatic mitral (valve) insufficiency (6) Ischemic cardiomyopathy: I may start him on Entresto in the morning, if the blood pressure tolerates. I am not sure whether he has been taking his medication at home or not. Also may consider doing a very limited 2D echocardiogram in the morning, if the heart rate is under control. Status: Acute (7) Chronic kidney disease: Be closely monitoring the kidney function. Status: Acute Qualifiers: Chronic kidney disease stage: stage 3 (moderate) Chronic kidney disease stage 3 subtype: stage 3a (GFR 45-59) Qualified Code(s): N18.31 - Chronic kidney disease, stage 3a Additional A&P Information Based on the clinical progress and the results of the above, further recommendations will be made. He may be given IV Lasix 40 mg every 8 hours x3 Potassium 20 mEq p.o. twice daily. If kidney function is stable, may consider spironolactone. Consult Attestations Medical Necessity Statement: Patient requires continued hospital stay for close monitoring and further management Coding Level of Care Code Acute Director Operations for Margaret Dinero History Detailed Medical Decision Making Moderate Complexity Diagnoses Acute on chronic systolic heart failure I50.23 Atrial fibrillation with RVR I48.91 Atherosclerotic heart disease of [place] coronary artery without angina pectoris I25.10 Chronic anticoagulation Z79.01 Mitral valve regurgitation I34.0 Cardiac valve disease etiology: nonrheumatic Ischemic cardiomyopathy I25.5 Chronic kidney disease N18.31 Chronic kidney disease stage: stage 3 (moderate) Chronic kidney disease stage 3 subtype: stage 3a (GFR 45-59)
[2020-09-08] MEDS: digoxin 250 mcg/ml INJ 2 mL 500 MCG IVP (20:07)
[2020-09-08] MEDS: FUROsemide 10 mg/mL SDV 4mL 40 MG IVP (20:17)
[2020-09-08] MEDS: metoprolol tartrate 50 mg Tablet PO (21:21)
[2020-09-08] MEDS: pantoprazole DR 40 mg Tablet PO (21:21)
[2020-09-09] VITALS (66 sets, daily range): BP systolic 84–140; BP diastolic 59–95; PULSE 62–107; RESP 6–32; O2SAT 83–98
--- NOTE | 2020-09-09 02:57 | PC.NURSE ---
8 run VTach at 0122. Patient asymptomatic, denies symptoms, on Esmolol gtt.
--- NOTE | 2020-09-09 03:09 | PC.NURSE ---
Sleep apnea Patient having several episodes of 15-20 second pauses of sleep apnea, sats drop to mid 80s. Patient noted to have been set up for sleep study but did not follow-up.
[2020-09-09] MEDS: FUROsemide 10 mg/mL SDV 4mL 40 MG IVP ×2 (04:03→11:19)
[2020-09-09] MEDS: esmolol drip 2,500 MG/250 ML PREMIX 20.41 MG IV (04:03)
[2020-09-09] MEDS: isosorbide mononitrate ER 60 mg Tablet 30 MG PO (06:21)
[2020-09-09] MEDS: clopidogrel 75 mg Tablet PO (06:21)
[2020-09-09] MEDS: apixaban 5 mg Tablet PO ×2 (06:22→17:09)
[2020-09-09 06:54] LABS: Basophils # 0.1 10^3/uL (0.0-0.1); Basophils % 0.6 %; Eosinophils # 0.2 10^3/uL (0.0-0.8); Hematocrit 42.3 % (42.0-52.0); Hemoglobin 13.7 g/dL (11.7-16.6); Lymphocytes # 1.6 10^3/uL (0.8-4.8); Lymphocytes % 20.6 %; Mean Corpuscular HGB Conc 32.4 g/dL (30.0-36.0); Mean Corpuscular Hemoglobin 30.5 pg (28.0-34.0); Mean Corpuscular Volume 94.2 fL (80-94); Mean Platelet Volume 11.6 fL (7.4-10.4); Monocytes # 0.5 10^3/uL (0.2-0.9); Monocytes % 6.5 %; Neutrophils # 5.51 10^3/uL (1.8-7.7); Neutrophils % 69.9 %; Nucleated Red Blood Cells % 0 %; Platelet Count 187 10^3/cmm (130-400); Red Blood Count 4.49 10^6/uL (4.1-5.3); White Blood Count 7.9 10^3/uL (4.0-10.0)
[2020-09-09 07:08] LABS: Anion Gap 12.3 (5-19); Blood Urea Nitrogen 23 mg/dL (8-23); Calcium 8.7 mg/dL (8.5-10.5); Carbon Dioxide 29 mmol/L (22-29); Chloride 101 mmol/L (98-107); Glucose 96 mg/dL (65-115); Osmolality Calculated 290 mOsm/kg (285-295); Potassium 4.3 mmol/L (3.5-5.1); Sodium 138 mmol/L (136-145)
[2020-09-09] MEDS: dilTIAZem ER (24HR) 120 mg Capsule PO (08:31)
[2020-09-09] MEDS: potassium chloride ER 20 mEq Tablet PO (08:31)
[2020-09-09] MEDS: metoprolol tartrate 50 mg Tablet PO (08:36)
[2020-09-09] MEDS: pantoprazole DR 40 mg Tablet PO ×2 (08:36→20:26)
[2020-09-09] MEDS: esmolol drip 2,500 MG/250 ML PREMIX 51.03 MG IV (10:17)
--- NOTE | 2020-09-09 10:34 | USCV_ITS ---
Stanislav Wu Age: 80 Gender: M : 1940 Exam Date: 09/09/2020 12:42 Ordering Phys: Red Sherman MD ([email or web address]) Technologist: Sherrell Mcgregor [place] [facility] [place]: AFIB BP: 124 / 94 HR: 77 Rhythm: Sinus Technical Quality: Adequate MEASUREMENTS (Male / Female) Normal Values 2D ECHO LV Diastolic Diameter PLAX 4.9 cm 4.2 - 5.9 / 3.9 - 5.3 cm LV Systolic Diameter PLAX 3.8 cm IVS Diastolic Thickness 1.6 cm 0.6 - 1.0 / 0.6 - 0.9 cm IVS Systolic Thickness 1.6 cm LVPW Diastolic Thickness 1.3 cm 0.6 - 1.0 / 0.6 - 0.9 cm LVPW Systolic Thickness 1.6 cm LV Ejection Fraction 2D Teich 44.2 % LV Ejection Fraction MOD 2C 33.3 % LV Ejection Fraction 2C AL 33.6 % M-MODE LV Diastolic Diameter MM 6.7 cm 4.2 - 5.9 / 3.9 - 5.3 cm LV Systolic Diameter MM 5.2 cm LV Ejection Fraction MM Teich 43.9 % IVS Diastolic Thickness MM 0.8 cm 0.6 - 1.0 / 0.6 - 0.9 cm IVS Systolic Thickness MM 1.1 cm LVPW Diastolic Thickness MM 1.2 cm 0.6 - 1.0 / 0.6 - 0.9 cm LVPW Systolic Thickness MM 1.3 cm FINDINGS Left Ventricle Severe diffuse hypokinesia of the mid and apical septum, anteroseptum, LV apex and apical inferior wall segments. Overall ejection fraction around 25-30 % Right Ventricle Normal right ventricular size and systolic function. Right Atrium Mildly increased right atrial size. Left Atrium Moderately increased left atrial size. Mitral Valve Mild mitral annular calcification. Thickened mitral valve. Aortic Valve Thickened aortic valve. Tricuspid Valve No gross abnormalities noted Pulmonic Valve No gross abnormalities noted Pericardium No pericardial effusion. Aorta Normal ascending aorta dimension. CONCLUSIONS Multiple wall motion normalities with a diminished LV ejection fraction of 25-30 %. Moderately dilated left atrium. Mildly increased right atrial size. Thickened aortic valve. Mild mitral annular calcification. Thickened mitral valve. There is no pericardial effusion. There are no intracardiac masses. Compared to the study from 03/01/2020, there is worsening of the LV systolic function Dr Red Sherman MD [facility] (Electronically Signed) Final Date: 09 September 2020 19:20 S
[2020-09-09] MEDS: digoxin 250 mcg/ml INJ 2 mL IVP (10:46)
[2020-09-09] MEDS: losartan 50 mg Tablet 25 MG PO (11:19)
--- NOTE | 2020-09-09 15:51 | P.PN_ITS ---
Subjective Subjective: Interval history: Patient is feeling much better. The heart rate seems to be getting under control. He responded to the Lasix appropriately. No fever or chills. No cough. Medications: Reviewed: Yes Medication Review Details: Current Medications Hydrocodone Bitart/Acetaminophen (Hydrocodone-Acetaminophen 5-325 Mg Tablet) 1 tab PO Q8H PRN PRN Reason: MODERATE Pain Apixaban (Apixaban 5 Mg Tablet) 5 mg PO Q12H [facility] Last Admin: 09/09/20 06:22 Dose: 5 mg Documented by: Atorvastatin Calcium (Atorvastatin 40 Mg Tablet) 80 mg PO DAILY@1700 [facility] Last Admin: 09/08/20 18:03 Dose: 80 mg Documented by: Clopidogrel Bisulfate (Clopidogrel 75 Mg Tablet) 75 mg PO DAILY@0600 [facility] Last Admin: 09/09/20 06:21 Dose: 75 mg Documented by: Diltiazem HCl (Diltiazem Er (24hr) 120 Mg Capsule) 120 mg PO DAILY [facility] Last Admin: 09/09/20 08:31 Dose: 120 mg Documented by: Furosemide (Furosemide 20 Mg Tablet) 20 mg PO DAILY@0800 [facility] Last Admin: 09/09/20 06:47 Dose: Not Given Documented by: Esmolol HCl (Brevibloc Drip) 2,500 mg in 250 mls @ 0 mls/hr IV .Q0M [facility]; Protocol Last Titration: 09/09/20 11:34 Dose: 100 mcg/kg/min, 40.82 mls/hr Documented by: Isosorbide Mononitrate (Isosorbide Mononitrate Er 60 Mg Tablet) 30 mg PO DAILY@0600 [facility] Last Admin: 09/09/20 06:21 Dose: 30 mg Documented by: Losartan Potassium (Losartan 50 Mg Tablet) 25 mg PO DAILY [facility] Last Admin: 09/09/20 11:19 Dose: 25 mg Documented by: Metoprolol Tartrate (Metoprolol Tartrate 50 Mg Tablet) 50 mg PO BID@0900,2100 [facility] Last Admin: 09/09/20 08:36 Dose: 50 mg Documented by: Pantoprazole Sodium (Pantoprazole Dr 40 Mg Tablet) 40 mg PO BID@0900,2100 [facility] Last Admin: 09/09/20 08:36 Dose: 40 mg Documented by: Potassium Chloride (Potassium Chloride Er 20 Meq Tablet) 20 meq PO BID [facility] Last Admin: 09/09/20 08:31 Dose: 20 meq Documented by: Vitals/I&O/Wt Last Vital Signs Temp 97.9 F 09/08/20 10:52 Pulse 83 09/09/20 14:00 Resp 15 09/08/20 16:00 BP 124/94 09/08/20 16:00 Pulse Ox 95 09/08/20 16:00 09/09/20 09/09/20 09/09/20 06:59 14:59 22:59 Intake Total 373.686 / 507.372 871.284 / 871.284 Output Total 1700 / 2150 1600 / 1600 Balance -1326.314 / -1642.628 -728.716 / -728.716 Weight last 48 hrs Weight 150 lb Physical Exam Narrative: EXAM NARRATIVE: GENERAL: The patient is alert and oriented times three. Slightly tachypneic. Very hard of hearing. HEENT: No significant pallor, icterus or lymphadenopathy. The pupils are reactant to light. Oral cavity: There are no mucous membrane lesions. NECK: Trachea appears to be central. No masses noted. The neck veins are slightly distended . no thyromegaly appreciated. No carotid bruit. RESPIRATORY: Chest is symmetrical. No intercostals muscle retraction or any accessory muscle activation. There is no chest wall tenderness. Breath sounds are heard bilaterally. Few fine rales at the bases. No evidence of consolidation. HEART: The PMI is not palpated. No palpable precordial events. The first heart sound is variable. Second arteries normal. Systolic murmur grade 3/6 in the mitral area. No diastolic murmurs. No S3 or S4 heard. No pericardial rub or any click heard. ABDOMEN: No vessel pulsations or distention. No tenderness. No organomegaly shyam reciated. No abdominal bruit. Bowel sounds are normally heard. : Deferred. RECTAL: Deferred. LYMPHATIC: No lymphadenopathy noted in the neck or groin. EXTREMITIES: No edema or cyanosis. No clubbing. The peripheral pulses are palpable but weak bilaterally. Extremities are warm. MUSCULOSKELETAL: No acute joint deformities or swelling SKIN: There are no significant scars or skin rash noted. NEUROPSYCHIATRIC: The patient is alert and oriented x3. Appears to be in a good mood. The higher functions are grossly within normal limits. No tremors or rigidity noted. Data : 09/09/20 05:01 09/09/20 05:01 Other Labs: Laboratory Last Values WBC 7.9 10^3/uL (4.0-10.0) 09/09/20 05:01 RBC 4.49 10^6/uL (4.1-5.3) 09/09/20 05:01 Hgb 13.7 g/dL (11.7-16.6) 09/09/20 05:01 Hct 42.3 % (42.0-52.0) 09/09/20 05:01 MCV 94.2 fL (80-94) H 09/09/20 05:01 MCH 30.5 pg (28.0-34.0) 09/09/20 05:01 MCHC 32.4 g/dL (30.0-36.0) 09/09/20 05:01 RDW 16.0 % (12.1-15.1) H 09/09/20 05:01 Plt Count 187 10^3/cmm (130-400) 09/09/20 05:01 MPV 11.6 fL (7.4-10.4) H 09/09/20 05:01 Neut % (Auto) 69.9 % 09/09/20 05:01 Lymph % (Auto) 20.6 % 09/09/20 05:01 [place] % (Auto) 6.5 % 09/09/20 05:01 Eos % (Auto) 2.0 % 09/09/20 05:01 Baso % (Auto) 0.6 % 09/09/20 05:01 Neut # (Auto) 5.51 10^3/uL (1.8-7.7) 09/09/20 05:01 Lymph # (Auto) 1.6 10^3/uL (0.8-4.8) 09/09/20 05:01 [place] # (Auto) 0.5 10^3/uL (0.2-0.9) 09/09/20 05:01 Eos # (Auto) 0.2 10^3/uL (0.0-0.8) 09/09/20 05:01 Baso # (Auto) 0.1 10^3/uL (0.0-0.1) 09/09/20 05:01 Nucleated RBC % (auto) 0 % 09/09/20 05:01 Nucleated RBCs # 0.0 /100WBC 09/09/20 05:01 D-Dimer 0.77 ug/mIFEU (0-0.59) H 09/08/20 11:13 Sodium 138 mmol/L (136-145) 09/09/20 05:01 Potassium 4.3 mmol/L (3.5-5.1) 09/09/20 05:01 Chloride 101 mmol/L (98-107) 09/09/20 05:01 Carbon Dioxide 29 mmol/L (22-29) 09/09/20 05:01 Anion Gap 12.3 (5-19) 09/09/20 05:01 BUN 23 mg/dL (8-23) 09/09/20 05:01 Creatinine 1.4 mg/dL (0.7-1.2) H 09/09/20 05:01 GFR Calculation Not Reportable 09/09/20 05:01 Glucose 96 mg/dL (65-115) 09/09/20 05:01 Calculated Osmolality 290 mOsm/kg (285-295) 09/09/20 05:01 Calcium 8.7 mg/dL (8.5-10.5) 09/09/20 05:01 Magnesium 2.3 mg/dL (1.7-2.3) 09/08/20 13:50 Total Bilirubin 0.7 mg/dL (0.15-1.2) 09/08/20 11:13 AST 39 U/L (0-40) 09/08/20 11:13 ALT 44 U/L (0-41) H 09/08/20 11:13 Alkaline Phosphatase 112 IU/L (40-130) 09/08/20 11:13 Troponin T Baseline 60 ng/L (0-15) H 09/08/20 11:13 Troponin T 120 Minute 50.23 ng/L (0-15) H 09/08/20 13:50 Delta Troponin T -9.77 ABS# (0-10) L 09/08/20 13:50 Troponin T Hi Sens 6Hr 49.86 ng/L (0-15) H 09/08/20 17:52 Troponin T Hi Sens 6Hr Delta -10.14 ng/L (0-12) L 09/08/20 17:52 NT-Pro-B Natriuret Pep 65288 pg/mL (0-450) H 09/08/20 11:13 Total Protein 6.4 g/dL (6.6-8.7) L 09/08/20 11:13 Albumin 3.6 g/dL (3.5-5.2) 09/08/20 11:13 Globulin 2.8 g/dL (1.3-4.6) 09/08/20 11:13 TSH 3.49 uIU/mL (0.27-4.20) 09/08/20 11:13 Urine Color Straw (Yellow) 09/08/20 11:30 Urine Appearance Clear (CLEAR) 09/08/20 11:30 Urine pH 6 (5-7) 09/08/20 11:30 Ur Specific [place] 1.015 (1.005-1.030) 09/08/20 11:30 Urine Protein Neg (Negative) 09/08/20 11:30 Urine Glucose (UA) Norm (Normal) 09/08/20 11:30 Urine Ketones Negative (Negative) 09/08/20 11:30 Urine Blood Neg (Negative) 09/08/20 11:30 Urine Nitrate Negative (Negative) 09/08/20 11:30 Urine Bilirubin Neg (Negative) 09/08/20 11:30 Urine Urobilinogen Norm mg/dL (Negative) 09/08/20 11:30 Ur Leukocyte Esterase Negative (Negative) 09/08/20 11:30 SARS-CoV-2 Ag (Rapid) Negative (Negative) 09/08/20 12:02 Echo: My impression: Echocardiogram from 03/02/2020 Left ventricle is mildly dilated. LV systolic function is moderately reduced with EF of 35 to 40%. There is severe hypokinesis of anterior and apical peña. Diastolic function is indeterminate because of atrial fibrillation. There is mild to moderate mitral regurgitation. Mild aortic regurgitation is seen. Mild pulmonic regurgitation is present. RVSP is 45 to 50 mmHg consistent with moderate pulmonary hypertension. Compared to prior study from 06/30/2018, LV systolic function is now further decreased to 35 to 40%. CTA Chest: My impression: 09/08/2020 IMPRESSION: 1. No pulmonary embolism. No pneumonia. 2. New interstitial edema but without pleural effusion. 3. New central adenopathy. This could be reactive but needs clinical correlation.. 4. Increased enlargement of the ascending thoracic aorta up to 4.2 cm. 5. Other chronic and incidental findings as described. CXR: My impression: Borderline cardiac silhouette with no lung infiltrate. Features of mild pulmonary venous congestion EKG 1: My Interpretation: Atrial fibrillation rapid ventricular rate. Diffuse nonspecific T wave changes. Left anterior fascicular block. Features of old anteroseptal myocardial infarction. Features of possible old inferior wall [place]. A&P Assessment and plan (1) Acute on chronic systolic heart failure: The heart failure seems to be getting compensated. Kidney function seems to be stable. The patient has not been taking the Entresto at home. He is still waiting for the prescription, to be approved by the insurance. He has been taking the vitaly nopril. At this point, we may discontinue the lisinopril and start him on losartan. Status: Acute (2) Atrial fibrillation with RVR: I may give another dose of digoxin 0.25 mg. He may be started on digoxin 0.125 mg p.o. daily tomorrow. Status: Acute (3) Atherosclerotic heart disease of [place] coronary artery without angina pectoris: Patient may be continued on the Plavix and the Eliquis. Status: Acute (4) Chronic anticoagulation: Patient is on Eliquis and has no bleeding complications. Continue on the current dose. Closely monitor the kidney function. If the creatinine gets greater than 1.5, we may cut back on the dose of Eliquis to 2.5 mg p.o. daily Status: Chronic (5) Mitral valve regurgitation: Status: Chronic Qualifiers: Cardiac valve disease etiology: nonrheumatic Qualified Code(s): I34.0 - Nonrheumatic mitral (valve) insufficiency (6) Ischemic cardiomyopathy: Since the patient was taking lisinopril at home, I may hold off on the lisinopril at this time. Start him on a losartan 25 mg p.o. daily. After 2 days of being off the lisinopril, we may start him on Entresto. Also may go ahead and do a limited 2D echocardiogram today to evaluate the LV function. Status: Acute (7) Chronic kidney disease: Be closely monitoring the kidney function. Status: Acute Qualifiers: Chronic kidney disease stage: stage 3 (moderate) Chronic kidney disease stage 3 subtype: stage 3a (GFR 45-59) Qualified Code(s): N18.31 - Chronic kidney disease, stage 3a Additional A&P Information Continue on the IV Lasix for the time being. Switch him to p.o. Lasix 40 mg twice daily tomorrow. Repeat BMP in the morning If the creatinine is stable at 1.4, may consider spironolactone. Limited 2D echocardiogram today. After reviewing the above and also based on the patient's clinical progress, further management decisions will be made. Attestations Medical Necessity Statement*: Patient requires continued hospital stay for close monitoring and further management Coding Level of Care Code Acute Visual Journalist for Chg Fwd History Detailed Exam Detailed Medical Decision Making Moderate Complexity Diagnoses Acute on chronic systolic heart failure I50.23 Atrial fibrillation with RVR I48.91 Atherosclerotic heart disease of [place] coronary artery without angina pectoris I25.10 Chronic anticoagulation Z79.01 Mitral valve regurgitation I34.0 Cardiac valve disease etiology: nonrheumatic Ischemic cardiomyopathy I25.5 Chronic kidney disease N18.31 Chronic kidney disease stage: stage 3 (moderate) Chronic kidney disease stage 3 subtype: stage 3a (GFR 45-59)
--- NOTE | 2020-09-09 15:57 | P.PN_ITS ---
Subjective Subjective: Interval history: No events overnight, patient heart rate has been fluctuating between 80-1 20s, no signs of hypotension He was given digoxin by Dr. Sherman yesterday, Patient is feeling better and endorsing that he slept well Vitals/I&O/Wt Last Vital Signs Temp 97.9 F 09/08/20 10:52 Pulse 83 09/09/20 14:00 Resp 15 09/08/20 16:00 BP 124/94 09/08/20 16:00 Pulse Ox 95 09/08/20 16:00 09/09/20 09/09/20 09/09/20 06:59 14:59 22:59 Intake Total 373.686 / 507.372 871.284 / 871.284 Output Total 1700 / 2150 1600 / 1600 Balance -1326.314 / -1642.628 -728.716 / -728.716 Weight last 48 hrs Weight 68.039 kg Physical Exam Narrative: EXAM NARRATIVE: elderly male Sitting at the bedside eating breakfast No acute shortness of breath No chest pain Variable S1-S2 No signs of fluid overload No lower extremity edema EOMI, PERRLA Appropriate mood and affect Data : 09/09/20 05:01 09/09/20 05:01 A&P Assessment and plan (1) Atrial fibrillation with RVR: Status: Acute (2) Chronic kidney disease: Status: Acute Qualifiers: Chronic kidney disease stage: stage 3 (moderate) Chronic kidney disease stage 3 subtype: stage 3a (GFR 45-59) Qualified Code(s): N18.31 - Chronic kidney disease, stage 3a (3) Ischemic cardiomyopathy: Status: Acute Additional A&P Information A. fib with acute RVR Chronic A. fib, questionable compliance with his medications TSH potassium magnesium normal Currently heart rate is fluctuating between 80-1 20s, received digoxin yesterday, second dose today I have asked ICU nurse to increase esmolol rate from 100 mics to 120 mics per kilo's per minute Discontinue Cardizem Increase metoprolol dose 200 mg twice a day and start maintenance dose of digoxin from tomorrow Ischemic cardiomyopathy with reduced action fraction heart failure Chest x-ray does not show pulmonary edema, clinically looks euvolemic, however BNP is high which I think is secondary to chronic kidney disease Continue Lasix 20 mg daily Considering chronic kidney disease Entresto on hold, Dr. Sherman has initiated losartan today Chronic kidney disease: Creatinine seems to be around baseline 1.4 which has improved Continue gout maintenance therapy Cardiac diet Full code DVT prophylaxis not needed, Kylie would suffice Attestations Medical Necessity Statement*: Anticipating discharge in next 24 hours, currently requiring esmolol titration for rate control, Time Spent in Patient Care: 30mins Coding Level of Care Code Acute Director [employer] for Chg Fwd Diagnoses Atrial fibrillation with RVR I48.91 Chronic kidney disease N18.31 Chronic kidney disease stage: stage 3 (moderate) Chronic kidney disease stage 3 subtype: stage 3a (GFR 45-59) Ischemic cardiomyopathy I25.5
[2020-09-09] MEDS: atorvastatin 40 mg Tablet 80 MG PO (17:09)
[2020-09-09] MEDS: metoprolol tartrate 50 mg Tablet 100 MG PO (20:26)
[2020-09-10] VITALS (38 sets, daily range): BP systolic 89–142; BP diastolic 67–106; PULSE 60–101; RESP 2–24; TEMP 36.6–37.1; O2SAT 89–97
[2020-09-10] MEDS: isosorbide mononitrate ER 60 mg Tablet 30 MG PO (06:01)
[2020-09-10] MEDS: enoxaparin 80 mg/0.8 mL Syringe 70 MG SUBCUT (06:02)
[2020-09-10 06:06] LABS: Anion Gap 11.9 (5-19); Blood Urea Nitrogen 21 mg/dL (8-23); Calcium 8.4 mg/dL (8.5-10.5); Carbon Dioxide 27 mmol/L (22-29); Chloride 101 mmol/L (98-107); Glucose 108 mg/dL (65-115); Osmolality Calculated 286 mOsm/kg (285-295); Potassium 3.9 mmol/L (3.5-5.1); Sodium 136 mmol/L (136-145)
[2020-09-10] MEDS: metoprolol tartrate 50 mg Tablet 100 MG PO ×2 (08:18→21:30)
[2020-09-10] MEDS: FUROsemide 40 mg Tablet PO (08:18)
[2020-09-10] MEDS: pantoprazole DR 40 mg Tablet PO ×2 (08:18→21:30)
[2020-09-10] MEDS: potassium chloride ER 20 mEq Tablet 40 MEQ PO (08:18)
[2020-09-10] MEDS: digoxin 125 mcg Tablet PO (08:19)
[2020-09-10] MEDS: losartan 50 mg Tablet 25 MG PO (08:19)
--- NOTE | 2020-09-10 09:54 | PM.PN ---
Subjective Subjective: Interval history: Patient is feeling okay. The heart rate is staying in the 80s. Vital signs are stable. He had the limited 2D echocardiogram yesterday which revealed an LV ejection fraction of 25 to 30%. This is a significant drop from the previous echocardiogram. Medications: Reviewed: Yes Medication Review Details: Current Medications Hydrocodone Bitart/Acetaminophen (Hydrocodone-Acetaminophen 5-325 Mg Tablet) 1 tab PO Q8H PRN PRN Reason: MODERATE Pain Atorvastatin Calcium (Atorvastatin 40 Mg Tablet) 80 mg PO DAILY@1700 [facility] Last Admin: 09/09/20 17:09 Dose: 80 mg Documented by: Clopidogrel Bisulfate (Clopidogrel 75 Mg Tablet) 75 mg PO DAILY@0600 [facility] Last Admin: 09/10/20 07:10 Dose: Not Given Documented by: Digoxin (Digoxin 125 Mcg Tablet) 125 mcg PO DAILY [facility] Last Admin: 09/10/20 08:19 Dose: 125 mcg Documented by: Enoxaparin Sodium (Enoxaparin 80 Mg/0.8 Ml Syringe) 70 mg SUBCUT Q24H [facility] Last Admin: 09/10/20 06:02 Dose: 70 mg Documented by: Furosemide (Furosemide 40 Mg Tablet) 40 mg PO DAILY@0800 [facility] Last Admin: 09/10/20 08:18 Dose: 40 mg Documented by: Esmolol HCl (Brevibloc Drip) 2,500 mg in 250 mls @ 0 mls/hr IV .Q0M [facility]; Protocol Last Titration: 09/09/20 16:10 Dose: Infused Documented by: Isosorbide Mononitrate (Isosorbide Mononitrate Er 60 Mg Tablet) 30 mg PO DAILY@0600 [facility] Last Admin: 09/10/20 06:01 Dose: 30 mg Documented by: Losartan Potassium (Losartan 50 Mg Tablet) 25 mg PO DAILY [facility] Last Admin: 09/10/20 08:19 Dose: 25 mg Documented by: Metoprolol Tartrate (Metoprolol Tartrate 50 Mg Tablet) 100 mg PO BID@0900,2100 [facility] Last Admin: 09/10/20 08:18 Dose: 100 mg Documented by: Pantoprazole Sodium (Pantoprazole Dr 40 Mg Tablet) 40 mg PO BID@0900,2100 [facility] Last Admin: 09/10/20 08:18 Dose: 40 mg Documented by: Potassium Chloride (Potassium Chloride Er 20 Meq Tablet) 40 meq PO DAILY [facility] Last Admin: 09/10/20 08:18 Dose: 40 meq Documented by: Vitals/I&O/Wt Last Vital Signs Temp 97.9 F 09/08/20 10:52 Pulse 76 09/10/20 08:19 Resp 17 09/09/20 16:05 BP 118/71 09/10/20 08:19 Pulse Ox 97 09/09/20 16:05 09/09/20 09/10/20 09/10/20 22:59 06:59 14:59 Intake Total 1034.512 / 1905.796 553 / 553 Output Total 600 / 2200 300 / 2500 700 / 700 Balance 434.512 / -294.204 -300 / -594.204 -147 / -147 Weight last 48 hrs Weight 150 lb Physical Exam Narrative: EXAM NARRATIVE: GENERAL: The patient is alert and oriented times three. Slightly tachypneic. Very hard of hearing. HEENT: No significant pallor, icterus or lymphadenopathy. The pupils are reactant to light. Oral cavity: There are no mucous membrane lesions. NECK: Trachea appears to be central. No masses noted. The neck veins are slightly distended . no thyromegaly appreciated. No carotid bruit. RESPIRATORY: Chest is symmetrical. No intercostals muscle retraction or any accessory muscle activation. There is no chest wall tenderness. Breath sounds are heard bilaterally. Few fine rales at the bases. No evidence of consolidation. HEART: The PMI is not palpated. No palpable precordial events. The first heart sound is variable. Second arteries normal. Systolic murmur grade 3/6 in the mitral area. No diastolic murmurs. No S3 or S4 heard. No pericardial rub or any click heard. ABDOMEN: No vessel pulsations or distention. No tenderness. No organomegaly appreciated. No abdominal bruit. Bowel sounds are normally heard. : Deferred. RECTAL: Deferred. LYMPHATIC: No lymphadenopathy noted in the neck or groin. EXTREMITIES: No edema or cyanosis. No clubbing. The peripheral pulses are palpable but weak bilaterally. Extremities are warm. MUSCULOSKELETAL: No acute joint deformities or swelling SKIN: There are no significant scars or skin rash noted. NEUROPSYCHIATRIC: The patient is alert and oriented x3. Appears to be in a good mood. The higher functions are grossly within normal limits. No tremors or rigidity noted. Data : 09/09/20 05:01 07/20/21 04:23 Other Labs: Laboratory Last Values WBC 7.9 10^3/uL (4.0-10.0) 09/09/20 05:01 RBC 4.49 10^6/uL (4.1-5.3) 09/09/20 05:01 Hgb 13.7 g/dL (11.7-16.6) 09/09/20 05:01 Hct 42.3 % (42.0-52.0) 09/09/20 05:01 MCV 94.2 fL (80-94) H 09/09/20 05:01 MCH 30.5 pg (28.0-34.0) 09/09/20 05:01 MCHC 32.4 g/dL (30.0-36.0) 09/09/20 05:01 RDW 16.0 % (12.1-15.1) H 09/09/20 05:01 Plt Count 187 10^3/cmm (130-400) 09/09/20 05:01 MPV 11.6 fL (7.4-10.4) H 09/09/20 05:01 Neut % (Auto) 69.9 % 09/09/20 05:01 Lymph % (Auto) 20.6 % 09/09/20 05:01 [place] % (Auto) 6.5 % 09/09/20 05:01 Eos % (Auto) 2.0 % 09/09/20 05:01 Baso % (Auto) 0.6 % 09/09/20 05:01 Neut # (Auto) 5.51 10^3/uL (1.8-7.7) 09/09/20 05:01 Lymph # (Auto) 1.6 10^3/uL (0.8-4.8) 09/09/20 05:01 [place] # (Auto) 0.5 10^3/uL (0.2-0.9) 09/09/20 05:01 Eos # (Auto) 0.2 10^3/uL (0.0-0.8) 09/09/20 05:01 Baso # (Auto) 0.1 10^3/uL (0.0-0.1) 09/09/20 05:01 Nucleated RBC % (auto) 0 % 09/09/20 05:01 Nucleated RBCs # 0.0 /100WBC 09/09/20 05:01 D-Dimer 0.77 ug/mIFEU (0-0.59) H 09/08/20 11:13 Sodium 136 mmol/L (136-145) 09/10/20 05:05 Potassium 3.9 mmol/L (3.5-5.1) 09/10/20 05:05 Chloride 101 mmol/L (98-107) 09/10/20 05:05 Carbon Dioxide 27 mmol/L (22-29) 09/10/20 05:05 Anion Gap 11.9 (5-19) 09/10/20 05:05 BUN 21 mg/dL (8-23) 09/10/20 05:05 Creatinine 1.2 mg/dL (0.7-1.2) 09/10/20 05:05 GFR Calculation Not Reportable 09/10/20 05:05 Glucose 108 mg/dL (65-115) 09/10/20 05:05 Calculated Osmolality 286 mOsm/kg (285-295) 09/10/20 05:05 Calcium 8.4 mg/dL (8.5-10.5) L 09/10/20 05:05 Magnesium 2.3 mg/dL (1.7-2.3) 09/08/20 13:50 Total Bilirubin 0.7 mg/dL (0.15-1.2) 09/08/20 11:13 AST 39 U/L (0-40) 09/08/20 11:13 ALT 44 U/L (0-41) H 09/08/20 11:13 Alkaline Phosphatase 112 IU/L (40-130) 09/08/20 11:13 Troponin T Baseline 60 ng/L (0-15) H 09/08/20 11:13 Troponin T 120 Minute 50.23 ng/L (0-15) H 09/08/20 13:50 Delta Troponin T -9.77 ABS# (0-10) L 09/08/20 13:50 Troponin T Hi Sens 6Hr 49.86 ng/L (0-15) H 09/08/20 17:52 Troponin T Hi Sens 6Hr Delta -10.14 ng/L (0-12) L 09/08/20 17:52 NT-Pro-B Natriuret Pep 56753 pg/mL (0-450) H 09/08/20 11:13 Total Protein 6.4 g/dL (6.6-8.7) L 09/08/20 11:13 Albumin 3.6 g/dL (3.5-5.2) 09/08/20 11:13 Globulin 2.8 g/dL (1.3-4.6) 09/08/20 11:13 TSH 3.49 uIU/mL (0.27-4.20) 09/08/20 11:13 Urine Color Straw (Yellow) 09/08/20 11:30 Urine Appearance Clear (CLEAR) 09/08/20 11:30 Urine pH 6 (5-7) 09/08/20 11:30 Ur Specific [place] 1.015 (1.005-1.030) 09/08/20 11:30 Urine Protein Neg (Negative) 09/08/20 11:30 Urine Glucose (UA) Norm (Normal) 09/08/20 11:30 Urine Ketones Negative (Negative) 09/08/20 11:30 Urine Blood Neg (Negative) 09/08/20 11:30 Urine Nitrate Negative (Negative) 09/08/20 11:30 Urine Bilirubin Neg (Negative) 09/08/20 11:30 Urine Urobilinogen Norm mg/dL (Negative) 09/08/20 11:30 Ur Leukocyte Esterase Negative (Negative) 09/08/20 11:30 SARS-CoV-2 Ag (Rapid) Negative (Negative) 09/08/20 12:02 A&P Assessment and plan (1) Acute on chronic systolic heart failure: The heart failure seems to be getting compensated. Kidney function seems to be stable. The patient has not been taking the Entresto at home. He is still waiting for the prescription, to be approved by the insurance. He seems to be tolerating the losartan so far well. The creatinine seems to be improving Status: Acute (2) Atrial fibrillation with RVR: Will be starting him on a maintenance dose of digoxin 0.125 mg p.o. daily. Status: Acute (3) Atherosclerotic heart disease of [place] coronary artery without angina pectoris: We will continue on the Plavix. The Eliquis was discontinued. Status: Acute (4) Chronic anticoagulation: Hold off on the Eliquis. Started on subcu Lovenox. Status: Chronic (5) Mitral valve regurgitation: May continue on the current medications. Status: Chronic Qualifiers: Cardiac valve disease etiology: nonrheumatic Qualified Code(s): I34.0 - Nonrheumatic mitral (valve) insufficiency (6) Ischemic cardiomyopathy: Because of the worsening LV systolic function, considering the possibility of restenosis of the intervene coronary artery lesions versus progression of disease in the other vessels are considerations. He had a slightly abnormal myocardial perfusion imaging few months ago. We may go ahead and do a repeat cardiac catheterization, to further evaluate his coronary status and decide on further management. The risk of bleeding, hematoma, vascular injury, myocardial infarction, CVA, renal failure and other concomitant complications were explained in detail. In view of the chronic kidney disease, he has a high risk of developing acute kidney injury and ending up in dialysis. Other concomitant complications also were discussed. Patient understood this well and consented to proceed. Status: Acute (7) Chronic kidney disease: Be closely monitoring the kidney function. May hold off on the Lasix tomorrow Status: Acute Qualifiers: Chronic kidney disease stage: stage 3 (moderate) Chronic kidney disease stage 3 subtype: stage 3a (GFR 45-59) Qualified Code(s): N18.31 - Chronic kidney disease, stage 3a Additional A&P Information Hold off on the Lasix tomorrow. Patient may be transferred out of the ICU. Tentatively scheduled for cardiac colorization on Thursday Based on the clinical progress, further management decisions will be made Attestations Medical Necessity Statement*: Patient requires continued hospital stay for close monitoring and further management Coding Level of Care Code Acute Environmental Quality Analyst for [facility] Fwd History Detailed Exam Detailed Medical Decision Making Moderate Complexity Diagnoses Acute on chronic systolic heart failure I50.23 Atrial fibrillation with RVR I48.91 Atherosclerotic heart disease of [place] coronary artery without angina pectoris I25.10 Chronic anticoagulation Z79.01 Mitral valve regurgitation I34.0 Cardiac valve disease etiology: nonrheumatic Ischemic cardiomyopathy I25.5 Chronic kidney disease N18.31 Chronic kidney disease stage: stage 3 (moderate) Chronic kidney disease stage 3 subtype: stage 3a (GFR 45-59)
--- NOTE | 2020-09-10 13:00 | PM.PN ---
Subjective Subjective: Interval history: Patient was seen and examined this morning, he is feeling better, heart rate is well controlled, esmolol drip has been turned off, started digoxin maintenance regimen, noted reduced ejection fraction, Dr. Sherman is planning for coronary angiogram on Thursday, Eliquis changed to Lovenox, patient denies chest pain shortness of breath nausea or vomit Vitals/I&O/Wt Last Vital Signs Temp 97.9 F 09/08/20 10:52 Pulse 76 09/10/20 08:19 Resp 17 09/09/20 16:05 BP 118/71 09/10/20 08:19 Pulse Ox 97 09/09/20 16:05 09/09/20 09/10/20 09/10/20 22:59 06:59 14:59 Intake Total 1034.512 / 1905.796 721 / 721 Output Total 600 / 2200 300 / 2500 700 / 700 Balance 434.512 / -294.204 -300 / -594.204 Physical Exam Narrative: EXAM NARRATIVE: Very pleasant and cooperative early male Sitting at the bedside eating breakfast today as well No acute shortness of breath No chest pain Variable S1-S2 No signs of fluid overload No lower extremity edema EOMI, PERRLA Appropriate mood and affect Data : 09/09/20 05:01 09/10/20 05:05 A&P Assessment and plan (1) Ischemic cardiomyopathy: Status: Acute (2) Chronic kidney disease: Status: Acute Qualifiers: Chronic kidney disease stage: stage 3 (moderate) Chronic kidney disease stage 3 subtype: stage 3a (GFR 45-59) Qualified Code(s): N18.31 - Chronic kidney disease, stage 3a (3) Atherosclerotic heart disease of [place] coronary artery without angina pectoris: Status: Acute (4) Dyspnea on exertion: Status: Acute (5) Atrial fibrillation with RVR: Status: Acute Additional A&P Information A. fib with acute RVR: Improved Esmolol drip has been turned off metoprolol dose 100 mg twice a day started, Cardizem p.o. regimen discontinued Digoxin maintenance regimen added Heart rate well controlled today Ischemic cardiomyopathy with reduced ejection fraction, Clinically does not look fluid overloaded chest x-ray without pulmonary edema, Cardiology recommendations reviewed, Dr. 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 coronary artery without angina pectoris I25.10 Dyspnea on exertion R06.00 Atrial fibrillation with RVR I48.91
[2020-09-10] MEDS: atorvastatin 40 mg Tablet 80 MG PO (17:11)
[2020-09-10] MEDS: calcium carbonate 500 mg Chew Tablet PO (18:44)
[2020-09-11] VITALS (10 sets, daily range): BP systolic 119–149; BP diastolic 75–105; PULSE 75–101; RESP 15–22; TEMP 36.6–36.8; O2SAT 93–98
[2020-09-11] MEDS: allopurinol 100 mg Tablet PO ×3 (00:08→18:37)
[2020-09-11] MEDS: clopidogrel 75 mg Tablet PO (05:11)
[2020-09-11] MEDS: enoxaparin 80 mg/0.8 mL Syringe 70 MG SUBCUT (05:11)
[2020-09-11] MEDS: isosorbide mononitrate ER 60 mg Tablet 30 MG PO (05:11)
[2020-09-11 05:18] LABS: Blood Urea Nitrogen 17 mg/dL (8-23); Calcium 8.5 mg/dL (8.5-10.5); Carbon Dioxide 26 mmol/L (22-29); Chloride 104 mmol/L (98-107); Glucose 103 mg/dL (65-115); Osmolality Calculated 288 mOsm/kg (285-295); Sodium 138 mmol/L (136-145)
[2020-09-11] MEDS: digoxin 125 mcg Tablet PO (08:43)
[2020-09-11] MEDS: pantoprazole DR 40 mg Tablet PO ×2 (08:43→20:13)
[2020-09-11] MEDS: metoprolol tartrate 50 mg Tablet 100 MG PO ×2 (08:43→20:14)
[2020-09-11] MEDS: losartan 50 mg Tablet 25 MG PO (08:44)
--- NOTE | 2020-09-11 09:13 | PM.PN ---
Subjective Subjective: Interval history: The patient is feeling okay with no chest pain or chest tightness. He still has significant dyspnea on exertion. No orthopnea or PND. Telemetry shows atrial fibrillation with a controlled ventricular response rate. Vital signs are stable. He is remaining afebrile. Medications: Reviewed: Yes Medication Review Details: Current Medications Hydrocodone Bitart/Acetaminophen (Hydrocodone-Acetaminophen 5-325 Mg Tablet) 1 tab PO Q8H PRN PRN Reason: MODERATE Pain Allopurinol (Allopurinol 100 Mg Tablet) 100 mg PO BID [facility] Last Admin: 09/11/20 08:43 Dose: 100 mg Documented by: Atorvastatin Calcium (Atorvastatin 40 Mg Tablet) 80 mg PO DAILY@1700 [facility] Last Admin: 09/10/20 17:11 Dose: 80 mg Documented by: Calcium Carbonate (Calcium Carbonate 500 Mg Chew Tablet) 500 mg PO Q4H PRN PRN Reason: INDIGESTION Last Admin: 09/10/20 18:44 Dose: 500 mg Documented by: Clopidogrel Bisulfate (Clopidogrel 75 Mg Tablet) 75 mg PO DAILY@0600 [facility] Last Admin: 09/11/20 05:11 Dose: 75 mg Documented by: Digoxin (Digoxin 125 Mcg Tablet) 125 mcg PO DAILY [facility] Last Admin: 09/11/20 08:43 Dose: 125 mcg Documented by: Enoxaparin Sodium (Enoxaparin 80 Mg/0.8 Ml Syringe) 70 mg SUBCUT Q24H [facility] Last Admin: 09/11/20 05:11 Dose: 70 mg Documented by: Furosemide (Furosemide 40 Mg Tablet) 40 mg PO DAILY@0800 [facility] Last Admin: 09/10/20 08:18 Dose: 40 mg Documented by: Sodium Chloride (Sodium Chloride 0.9%) 1,000 mls @ 50 mls/hr IV .Q20H ONE Stop: 09/11/20 13:06 Isosorbide Mononitrate (Isosorbide Mononitrate Er 60 Mg Tablet) 30 mg PO DAILY@0600 [facility] Last Admin: 09/11/20 05:11 Dose: 30 mg Documented by: Losartan Potassium (Losartan 50 Mg Tablet) 25 mg PO DAILY [facility] Last Admin: 09/11/20 08:44 Dose: 25 mg Documented by: Metoprolol Tartrate (Metoprolol Tartrate 50 Mg Tablet) 100 mg PO BID@0900,2100 [facility] Last Admin: 09/11/20 08:43 Dose: 100 mg Documented by: Pantoprazole Sodium (Pantoprazole Dr 40 Mg Tablet) 40 mg PO BID@0900,2100 [facility] Last Admin: 09/11/20 08:43 Dose: 40 mg Documented by: Potassium Chloride (Potassium Chloride Er 20 Meq Tablet) 40 meq PO DAILY [facility] Last Admin: 09/10/20 08:18 Dose: 40 meq Documented by: Vitals/I&O/Wt Last Vital Signs Temp 98 F 09/11/20 04:10 Pulse 101 H 09/11/20 08:43 Resp 15 09/11/20 04:10 BP 136/86 09/11/20 08:44 Pulse Ox 95 09/11/20 04:10 09/10/20 09/11/20 09/11/20 22:59 06:59 14:59 Intake Total 236 / 957 100 / 1057 Output Total 250 / 950 1 / 951 300 / 300 Balance - 99 / 106 -300 / -300 Physical Exam Narrative: EXAM NARRATIVE: GENERAL: The patient is alert and oriented times three. Slightly tachypneic. Very hard of hearing. HEENT: No significant pallor, icterus or lymphadenopathy. The pupils are reactant to light. Oral cavity: There are no mucous membrane lesions. NECK: Trachea appears to be central. No masses noted. RESPIRATORY: Chest is symmetrical. No intercostals muscle retraction or any accessory muscle activation. There is no chest wall tenderness. Breath sounds are heard bilaterally. Few fine rales at the bases. No evidence of consolidation. HEART: The PMI is not palpated. No palpable precordial events. The first heart sound is variable. Second arteries normal. Systolic murmur grade 3/6 in the mitral area. No diastolic murmurs. No S3 or S4 heard. No pericardial rub or any click heard. ABDOMEN: No vessel pulsations or distention. No tenderness. No organomegaly appreciated. No abdominal bruit. Bowel sounds are normally heard. : Deferred. RECTAL: Deferred. LYMPHATIC: No lymphadenopathy noted in the neck or groin. EXTREMITIES: No edema or cyanosis. No clubbing. The peripheral pulses are palpable but weak bilaterally. Extremities are warm. MUSCULOSKELETAL: No acute joint deformities or swelling SKIN: There are no significant scars or skin rash noted. NEUROPSYCHIATRIC: The patient is alert and oriented x3. Appears to be in a good mood. The higher functions are grossly within normal limits. No tremors or rigidity noted. Data : 09/09/20 05:01 09/11/20 04:23 Echo: My impression: Echocardiogram on 09/09/2020 Multiple wall motion normalities with a diminished LV ejection fraction of 25-30 %. Moderately dilated left atrium. Mildly increased right atrial size. Thickened aortic valve. Mild mitral annular calcification. Thickened mitral valve. There is no pericardial effusion. There are no intracardiac masses. Compared to the study from 03/01/2020, there is worsening of the LV systolic function Myocardial perfusion imaging: My impression: MPI on 06/21/2020 Myocardial perfusion imaging on 06/21/2020 revealed 1. Moderate to large areas of persistent decreased tracer uptake in the anterior, inferior, anteroseptal and anterolateral wall regions, suggestive of myocardial scarring in the distribution of all the 3 coronary arteries. 2. Multiple wall motion of abnormalities as mentioned above. 3. Moderately dilated LV cavity, end-systolic volume of 146 mm 4. Diminished LV ejection fraction of 30%. 5. Slightly elevated transient ischemic dilatation ratio, may suggest endocardial ischemia. The positive predictive value is low. Clinical correlation is recommended A&P Assessment and plan (1) Acute on chronic systolic heart failure: The heart failure seems to be getting compensated. Kidney function seems to be stable. Remarkably improved. The patient has not been taking the Entresto at home. He is still waiting for the prescription, to be approved by the insurance. He seems to be tolerating the losartan so far well. The creatinine seems to be improving. May continue on the current medication for the time being Status: Acute (2) Atrial fibrillation with RVR: We will continue on the current medications. The heart rate seems to be fairly under control Status: Acute (3) Atherosclerotic heart disease of [place] coronary artery without angina pectoris: We will continue on the Plavix. The Eliquis was discontinued. Possible cardiac catheterization tomorrow. Status: Acute (4) Chronic anticoagulation: Hold off on the Eliquis. Started on subcu Lovenox. Status: Chronic (5) Mitral valve regurgitation: May continue on the current medications. Status: Chronic Qualifiers: Cardiac valve disease etiology: nonrheumatic Qualified Code(s): I34.0 - Nonrheumatic mitral (valve) insufficiency (6) Ischemic cardiomyopathy: Because of the worsening LV systolic function, considering the possibility of restenosis of the intervened coronary artery lesions versus progression of disease in the other vessels are considerations. He had a slightly abnormal myocardial perfusion imaging few months ago. We may go ahead and do a repeat cardiac catheterization, to further evaluate his coronary status and decide on further management. The risk of bleeding, hematoma, vascular injury, myocardial infarction, CVA, renal failure and other concomitant complications were explained in detail. In view of the chronic kidney disease, he has a high risk of developing acute kidney injury and ending up in dialysis. Other concomitant complications also were discussed. Patient understood this well and consented to proceed. Status: Acute (7) Chronic kidney disease: Be closely monitoring the kidney function. Status: Acute Qualifiers: Chronic kidney disease stage: stage 3 (moderate) Chronic kidney disease stage 3 subtype: stage 3a (GFR 45-59) Qualified Code(s): N18.31 - Chronic kidney disease, stage 3a Additional A&P Information Repeat BMP and CBC in the morning. We will keep him n.p.o. after midnight. Cardiac catheterization tomorrow. Based on the results, further management decisions will be made Attestations Medical Necessity Statement*: Patient requires continued hospital stay for close monitoring and further management Coding Level of Care Code Acute [place] for [facility] Fwd Diagnoses Acute on chronic systolic heart failure I50.23 Atrial fibrillation with RVR I48.91 Atherosclerotic heart disease of [place] coronary artery without angina pectoris I25.10 Chronic anticoagulation Z79.01 Mitral valve regurgitation I34.0 Cardiac valve disease etiology: nonrheumatic Ischemic cardiomyopathy I25.5 Chronic kidney disease N18.31 Chronic kidney disease stage: stage 3 (moderate) Chronic kidney disease stage 3 subtype: stage 3a (GFR 45-59)
--- NOTE | 2020-09-11 18:27 | P.PN_ITS ---
Subjective Subjective: Interval history: No events overnight, patient is awaiting angiogram tomorrow, remove fentanyl patch patient is stating that he has history of cardiac arrest which was thought secondary to opioid overdose last time when he went for angiogram Never received any evaluation for AICD Vitals/I&O/Wt Last Vital Signs Temp 98.3 F 09/11/20 18:00 Pulse 75 09/11/20 18:00 Resp 18 09/11/20 18:00 BP 119/75 09/11/20 18:00 Pulse Ox 98 09/11/20 18:00 09/11/20 09/11/20 09/11/20 06:59 14:59 22:59 Intake Total 100 / 1057 600 / 600 480 / 1080 Output Total 1 / 951 300 / 300 Balance 99 / 106 300 / 300 480 / 780 Physical Exam Narrative: EXAM NARRATIVE: He was sitting in his recliner without any discomfort Variable S1-S2 heart rate in 80s No active signs of congestive heart failure Abdomen soft Awake alert vented x3 EOMI, PERRLA Appropriate mood and affect Data : 09/09/20 05:01 09/11/20 04:23 A&P Assessment and plan (1) Chronic kidney disease: Status: Acute Qualifiers: Chronic kidney disease stage: stage 3 (moderate) Chronic kidney disease stage 3 subtype: stage 3a (GFR 45-59) Qualified Code(s): N18.31 - Chronic kidney disease, stage 3a (2) Ischemic cardiomyopathy: Status: Acute (3) Atherosclerotic heart disease of [place] coronary artery without angina pectoris: Status: Acute (4) Atrial fibrillation with RVR: Status: Acute Additional A&P Information A. fib with acute RVR: Improved Currently heart rate is in 80s on digoxin maintenance dose and metoprolol 100 mg twice a day Ischemic cardiomyopathy with reduced ejection fraction, Currently on aspirin, Plavix, ARB awaiting angiogram tomorrow Chronic kidney disease: Improved, creatinine normal Continue gout maintenance therapy N.p.o. after midnight Full code DVT prophylaxis currently on therapeutic dose of Lovenox Attestations Medical Necessity Statement*: Awaiting angiogram tomorrow Time Spent in Patient Care: 30mins Coding Level of Care Code Acute [employer] Operations [employer] Training for [employer] Fwd Diagnoses Chronic kidney disease N18.31 Chronic kidney disease stage: stage 3 (moderate) Chronic kidney disease stage 3 subtype: stage 3a (GFR 45-59) Ischemic cardiomyopathy I25.5 Atherosclerotic heart disease of [place] coronary artery without angina pectoris I25.10 Atrial fibrillation with RVR I48.91
[2020-09-11] MEDS: atorvastatin 40 mg Tablet 80 MG PO (18:37)
--- NOTE | 2020-09-11 23:23 | PC.NURSE ---
Around 1999: Fentanyl patch removed form left upper chest region.
[2020-09-12] VITALS (22 sets, daily range): BP systolic 121–151; BP diastolic 70–120; PULSE 80–103; RESP 7–24; TEMP 36.4–36.8; O2SAT 84–99
[2020-09-12 03:41] LABS: Basophils # 0.1 10^3/uL (0.0-0.1); Basophils % 0.5 %; Eosinophils # 0.2 10^3/uL (0.0-0.8); Eosinophils % 1.6 %; Hematocrit 44.2 % (42.0-52.0); Hemoglobin 14.4 g/dL (11.7-16.6); Lymphocytes # 1.8 10^3/uL (0.8-4.8); Lymphocytes % 15.4 %; Mean Corpuscular HGB Conc 32.6 g/dL (30.0-36.0); Mean Corpuscular Hemoglobin 29.8 pg (28.0-34.0); Mean Corpuscular Volume 91.5 fL (80-94); Mean Platelet Volume 10.5 fL (7.4-10.4); Monocytes # 0.7 10^3/uL (0.2-0.9); Monocytes % 6.2 %; Neutrophils # 8.77 10^3/uL (1.8-7.7); Nucleated Red Blood Cells % 0 %; Platelet Count 213 10^3/cmm (130-400); Red Blood Count 4.83 10^6/uL (4.1-5.3); Red Cell Distribution Width 15.8 % (12.1-15.1); White Blood Count 11.6 10^3/uL (4.0-10.0)
[2020-09-12 03:57] LABS: Blood Urea Nitrogen 18 mg/dL (8-23); Calcium 9.3 mg/dL (8.5-10.5); Carbon Dioxide 22 mmol/L (22-29); Chloride 104 mmol/L (98-107); Glucose 131 mg/dL (65-115); Osmolality Calculated 286 mOsm/kg (285-295); Sodium 136 mmol/L (136-145)
[2020-09-12] MEDS: clopidogrel 75 mg Tablet PO (05:21)
[2020-09-12] MEDS: isosorbide mononitrate ER 60 mg Tablet 30 MG PO (05:21)
[2020-09-12] MEDS: allopurinol 100 mg Tablet PO ×2 (10:00→18:03)
[2020-09-12] MEDS: digoxin 125 mcg Tablet PO (10:00)
[2020-09-12] MEDS: metoprolol tartrate 50 mg Tablet 100 MG PO ×2 (10:00→20:43)
[2020-09-12] MEDS: losartan 50 mg Tablet 25 MG PO (10:01)
[2020-09-12] MEDS: pantoprazole DR 40 mg Tablet PO ×2 (10:01→20:43)
[2020-09-12] MEDS: HYDROcodone-acetaminophen 5-325 mg Tablet 1 TAB PO (10:05)
--- NOTE | 2020-09-12 10:22 | PC.SOCIAL ---
IMM Update Pg. 2 of IMM updated and reviewed with patient, verbalized understanding. Initialed, dated, timed, and placed in chart. Copy provided to patient.
--- NOTE | 2020-09-12 13:29 | PM.PN ---
Subjective Subjective: Interval history: No events overnight, awaiting angiogram, hypertension controlled hemodynamically stable fentanyl patch was removed 24 hours ago Vitals/I&O/Wt Last Vital Signs Temp 98.2 F 09/12/20 11:21 Pulse 82 09/12/20 11:21 Resp 18 09/12/20 11:21 BP 121/70 09/12/20 11:21 Pulse Ox 99 09/12/20 00:13 09/11/20 09/12/20 09/12/20 22:59 06:59 14:59 Intake Total 480 / 1080 Output Total 400 / 700 400 / 1100 Balance 80 / 380 -400 / -20 Physical Exam Narrative: EXAM NARRATIVE: Patient was lying comfortably in his bed without any active discomfort Very pleasant and cooperative during my evaluation Variable S1-S2 no active signs of heart failure Soft abdomen without peritonitis Awake alert oriented x3, GCS 15 EOMI, PERRLA Appropriate mood and affect Data : 09/12/20 03:33 09/12/20 03:33 A&P Assessment and plan (1) Chronic kidney disease: Status: Acute Qualifiers: Chronic kidney disease stage: stage 3 (moderate) Chronic kidney disease stage 3 subtype: stage 3a (GFR 45-59) Qualified Code(s): N18.31 - Chronic kidney disease, stage 3a (2) Ischemic cardiomyopathy: Status: Acute (3) Dyspnea on exertion: Status: Acute (4) Atrial fibrillation with RVR: Status: Acute Additional A&P Information A. fib RVR: Improved Patient is awaiting coronary angiogram for reduced ejection fraction No active signs of congestive heart failure Currently getting metoprolol 100 mg twice a day along digoxin maintenance regimen On therapeutic dose of Lovenox Full code N.p.o. 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
[2020-09-12] MEDS: sodium chloride 0.9% 1,000 ML 50 ML IV (15:30)
[2020-09-12] MEDS: diphenhydrAMINE 50 mg Capsule PO (15:39)
--- NOTE | 2020-09-12 16:18 | XACV_ITS ---
Exam Room: [facility] Ht: 175 cm Wt: 68 kg BSA: 1.82 m2 Gender: Male : 1940 Any Known Allergies: No known allergies Exam Priority: Routine Procedure(s): Procedure Description: Diagnostic procedure Procedure Description: Left Heart Catheterization Procedure Description: Left ventriculography Procedure Description: Coronary Angiography Diagnostic Cath Status: Urgent Diagnostic Findings * Coronary angiography shows right dominance. * The left main is a medium caliber short vessel with no significant stenotic lesion. * The left interesting artery is a medium caliber vessel , which appears to wrap around the LV apex minimally. The proximal and the mid LAD segments were found to be extensively stented. The stented segments were found to be patent there was minimal in-stent narrowing. The distal LAD was found to have no significant stenotic lesions.. * The left circumflex artery is a medium caliber vessel which also was found to be extensively stented in the proximal to mid segment. The first obtuse marginal branch is a relatively small caliber vessel which was found to have moderate diffuse disease proximally with no significant stenotic lesions. * The intermedius artery is a medium caliber vessel which also was found to have extensive stenting proximally. There is moderate diffuse in-stent narrowing. No other significant stenotic lesions were noted. * The right coronary artery is a small to medium caliber codominant vessel. Right after the first RV branch, there was stented segment, which was patent with a moderate in-stent stenosis. The right RV branch was found to have a high-grade lesion in the mid segment. No other significant stenotic lesions were noted. Conclusions 1. Severe left ventricular systolic dysfunction. Ejection fraction of 25%. 2. This is an 80-year-old white male with history of previous myocardial infarction, multiple PCI's, chronic atrial fibrillation, presenting with recurrent episodes of heart failure and worsening LV systolic function. He had a Miochol perfusion imaging which revealed an elevated transient ischemic dilatation ratio. Multiple areas of fixed defects with the very small areas of reversible defects. In view of his clinical presentation and the abnormal objective findings, in order to further evaluate his coronary status, a repeat cardiac catheterization was recommended. Patient underwent left catheterization with left and right coronary angiogram and LV angiogram today. The findings are as follows.. 3. Patent stented segments of the proximal to mid LAD, proximal to mid circumflex artery, proximal intermediate and right coronary arteries. There was moderate in-stent stenosis in the RCA and in the intermedius artery. The LV cavity was found to be mildly dilated with an ejection fraction of around 25%. LVEDP was 13 mmHg. Recommendations * Patient was transferred back to medical for stable condition. We will continue careful IV hydration. Diagnostic RX Recommendation: medical therapy and/or counseling LV EDP: 13 mmHg Ventriculography Ejection Fraction: 25.0 % Left Ventriculography Findings: * The LV gram was performed in the SNEED projection. The LV cavity was found to be mildly dilated. There was severe diffuse hypokinesia of the left ventricle with an ejection fraction around 25%. The LVEDP was 13 mmHg. The LV apex was found to be almost akinetic. No filling defects were noted. Pressures Phase:Rest AO : 153 / 21 ( 70 ) @ 4:01:00 PM LV : 144 / -1 / 13 @ 4:00:00 PM 154 / -1 / 10 @ 4:01:00 PM Clinical Evaluation EBL: 5mL-10mL Procedural Details Procedure Consent Obtained. Pre-Procedure Time Out. Identified patient by full name and date of as verbalized by the patient/guarantor. Does the consent match the physician's order: Yes. Accurate & Complete Informed Consent: Yes. Inpatient/Outpatient History & Physical on Chart: Yes. If H&P is completed, is and addenduem needed: No; If yes, is the addendum complete: N/A. Visualize and Verify Site with Patient/Guarantor: N/A. Relevant Radiology Images available: N/A. Pre-op teaching completed and patient verbalized understanding. The risks, benefits, and alternatives of sedation and/or procedure were discussed by physician. The patient agrees to continue. Procedure started. [facility] Clinical Fraility Score: 4: Vulnerable. Financial Services Representative Indications: Cardiomyopathy. Chest Pain Symptom Assessment: Atypical Angina. Cardiovascular Instability: No. Correct patient, site and procedure confirmed by cath team. PERRLA. Strong, equal hand security monitor bilaterally. Lungs clear x 5 lobes. IV Site on Arrival: 20 gauge in the right anticubital. IV Fluids: 0.9% NaCl at KVO. 0 mL infused prior to candlemaking laborer. Pre Procedural Pulses: bilateral dorsalis pedis was 1+. Oxygen started at 2liters/min via nasal canula. bilateral groins was prepped with chloroprep then draped in the usual sterile fashion. Physician notified. Baseline sample Acquired. HR: 68 BPM. Equipment: 6F - Femoral. Cardiac Cath Pack. ACIST Manifold Kit Model BT 2000. Heparinized Saline (2 units/mL), 1000 mL bag. Kit, Micropuncture. Physician arrived. Physician scrubbed in. Immediate Pre-Procedure Time Out. Correct Patient: Yes; Correct Procedure: Yes; Correct Site: Yes; Correct Patient Position: Yes; Correct Supplies: Yes; Dried Flammable Prep: Yes; Blood Products Available: N/A;. Lidocaine 1% infiltrated to the right groin. Arterial access obtained with micropuncture set. A 5 surinamese JL4 catheter in over wire. Multiple views taken of left coronary artery. Catheter removed over the standard wire. A 5 surinamese JR4 catheter in over wire. Multiple views taken of right coronary artery. Called Dr Kelly to come look at films. Catheter removed over the standard wire. A 5 surinamese Angled Pig catheter in over wire. EDP Sample taken: LV 144/-2,13; HR: 65 BPM; SpO2: Off%. LV gram performed in SNEED @ 10 mL/second for a total of 30 mL. EDP Sample taken: LV 154/-2,10; HR: 96 BPM; SpO2: 96%. Pullback taken: LV Off; AO Off; Mean: , Peak to Peak: , SEP: ; HR: 85 BPM; SpO2: 97%. Catheter removed over the standard wire. Dr Sherman scrubbed out. Sheath flushed periodically to maintain patency. Dr Kelly arrived. A Suture was successful obtaining hemostatsis at the Right Femoral artery insertion site. Sheath(s) sutured into position with 2-0 silk and sterile 4x4's and Op-site applied over the site. No oozing or signs and symptoms of hematoma noted. Arterial sheath flushed and connected to tranducer and pressure bag with heparinized saline. Post Procedure: Pulses reassessed and unchanged. PERRLA. Strong, equal hand security monitor bilaterally. No VTE prophylaxis required. Medication's Wasted: Lidocaine 1% = 4 mL. Medication's Wasted: Heparin = 2500 units. Total IV fluids: 250 mL. Contrast type used: Omnipaque 300 mgI/mL, 500 mL bottle. Complications: none. Estimated blood loss: 5mL-10mL. Procedure completed. Patient transferred by bed to 1st floor. Vital chart was stopped. Access Site Site: Right Femoral artery Sheath Size: 5 Fr Hemostasis Method: Suture Hemostasis Success: Successful Procedure Medications Start: 4:36 PM Stop: 4:36 PM Medication: Versed Amount: 1 mg Route: I.V. Start: 4:36 PM Stop: 4:36 PM Medication: Fentanyl Amount: 50 mcg Route: I.V. Start: 4:52 PM Stop: 4:52 PM Medication: 0.9% Saline Amount: 250 ml Route: I.V. bolus Start: 4:55 PM Stop: 4:55 PM Medication: Heparin Amount: 1500 units Route: I.V. Start: 5:14 PM Stop: 5:14 PM Medication: Versed Amount: 1 mg Route: I.V. Start: 5:14 PM Stop: 5:14 PM Medication: Fentanyl Amount: 50 mcg Route: I.V. I, the attending physician, have reviewed and verified all procedure medications. Yes, all medications given per verbal order History/Risk Factors Hypertension: Yes Dyslipidemia: Yes Peripheral Arterial Disease (PAD): No Myocardial Infarction (NM): Yes Obesity: No Renal Disease: No Tobacco Use: Former Prior Interventions PCI: Yes CABG: No Valve Surgery: No Date of PCI: 07/24/2017 Report Signatures Finalized by Dr Red Sherman MD [facility] on 09/13/2020 06:13 AM
--- NOTE | 2020-09-12 16:36 | W.PM.OPSUD ---
Surgery/Procedure H&P Update DATE OF PROCEDURE: September 12, 2020 DATE H&P PERFORMED: 09/08/20 H&P UPDATE INFORMATION: I have reviewed H&P completed within last 30 days, I have examined patient prior to procedure and No changes to prior documentation PREOP DIAGNOSIS: ASHD PRIMARY INDICATION FOR PROCEDURE: abnormal stress test/ cardiomyopathy/ CHF PLANNED PROCEDURE: Operation Date: 09/12/20 16:30 Proposed Procedures p Cardiac Catheterization left(Left) - Red Sherman MD PATIENT REASSESSED PRIOR TO SEDATION, WITH NO CHANGE NOTED: Yes PHYSICAL EXAM: alert, oriented x 3, clear to auscultation bilaterally and regular rate & rhythm AIRWAY EVAL/ANESTHESIA PLAN: normal airway, see other exam findings, ASA III, Monitored Anesthesia, Local Anesthesia, Risks, benefits & alternatives of sedation and/or procedure discussed and Patient agrees to continue as planned
--- NOTE | 2020-09-12 16:39 | PC.NURSE ---
to cardiac custodial laborer at 1616
[2020-09-12] MEDS: atorvastatin 40 mg Tablet 80 MG PO (18:04)
--- NOTE | 2020-09-12 18:10 | PM.PN ---
Subjective Subjective: Interval history: Patient is feeling okay. No chest pain or chest tightness. Has the dyspnea on exertion.? Occasional orthopnea. Patient underwent a cardiac conization today. He was found to have patent stented segments in the LAD, diagonal, circumflex and right coronary artery. The left ventricle was found to be dilated with ejection fraction around 25%. Medications: Reviewed: Yes Medication Review Details: Current Medications Acetaminophen (Acetaminophen 325 Mg Tablet) 650 mg PO Q6H PRN PRN Reason: MILD PAIN Al Hydrox/Mg Hydrox/Simethicone (Vxgg-Jyf-Ymlmaljws-Love 30 Ml Udc) 30 ml PO Q15M PRN PRN Reason: INDIGESTION Allopurinol (Allopurinol 100 Mg Tablet) 100 mg PO BID [facility] Last Admin: 09/12/20 18:03 Dose: 100 mg Documented by: Alprazolam (Alprazolam 0.5 Mg Tablet) 0.25 mg PO TID PRN PRN Reason: ANXIETY Atorvastatin Calcium (Atorvastatin 40 Mg Tablet) 80 mg PO DAILY@1700 [facility] Last Admin: 09/12/20 18:04 Dose: 80 mg Documented by: Atropine Sulfate (Atropine 1 Mg/Ml Sdv 1 Ml) 0.5 mg IVP PRN PRN PRN Reason: Symptomatic bradycardia Calcium Carbonate (Calcium Carbonate 500 Mg Chew Tablet) 500 mg PO Q4H PRN PRN Reason: INDIGESTION Last Admin: 09/10/20 18:44 Dose: 500 mg Documented by: Clopidogrel Bisulfate (Clopidogrel 75 Mg Tablet) 75 mg PO DAILY@0600 [facility] Last Admin: 09/12/20 05:21 Dose: 75 mg Documented by: Digoxin (Digoxin 125 Mcg Tablet) 125 mcg PO DAILY [facility] Last Admin: 09/12/20 10:00 Dose: 125 mcg Documented by: Furosemide (Furosemide 40 Mg Tablet) 40 mg PO DAILY@0800 [facility] Last Admin: 09/10/20 08:18 Dose: 40 mg Documented by: Sodium Chloride (Sodium Chloride 0.9%) 1,000 mls @ 50 mls/hr IV .Q20H ONE Stop: 09/13/20 11:14 Last Admin: 09/12/20 15:30 Dose: 50 mls/hr Documented by: Sodium Chloride (Sodium Chloride 0.9%) 1,000 mls @ 75 mls/hr IV .[id number] [facility] Isosorbide Mononitrate (Isosorbide Mononitrate Er 60 Mg Tablet) 30 mg PO DAILY@0600 [facility] Last Admin: 09/12/20 05:21 Dose: 30 mg Documented by: Losartan Potassium (Losartan 50 Mg Tablet) 25 mg PO DAILY [facility] Last Admin: 09/12/20 10:01 Dose: 25 mg Documented by: Magnesium Hydroxide (Magnesium Hydroxide 30 Ml Udc) 30 ml PO DAILY PRN PRN Reason: CONSTIPATION Metoprolol Tartrate (Metoprolol Tartrate 50 Mg Tablet) 100 mg PO BID@0900,2100 [facility] Last Admin: 09/12/20 10:00 Dose: 100 mg Documented by: Naloxone HCl (Naloxone 0.4 Mg/Ml Sdv) 0.1 mg IVP Q2M PRN PRN Reason: RESPIRATORY RATE < 8/MIN Nitroglycerin (Nitroglycerin 0.4 Mg Sublingual Tablet) 0.4 mg SUBLINGUAL Q5M PRN PRN Reason: CHEST PAIN Pantoprazole Sodium (Pantoprazole Dr 40 Mg Tablet) 40 mg PO BID@09,2099 [facility] Last Admin: 09/12/20 10:01 Dose: 40 mg Documented by: Potassium Chloride (Potassium Chloride Er 20 Meq Tablet) 40 meq PO DAILY [facility] Last Admin: 09/10/20 08:18 Dose: 40 meq Documented by: Temazepam (Temazepam 15 Mg Capsule) 15 mg PO BEDTIME PRN PRN Reason: INSOMNIA Vitals/I&O/Wt Last Vital Signs Temp 97.8 F 09/12/20 15:42 Pulse 89 09/12/20 18:00 Resp 18 09/12/20 18:00 BP 149/82 09/12/20 18:00 Pulse Ox 92 09/12/20 18:00 09/12/20 09/12/20 09/12/20 06:59 14:59 22:59 Output Total 400 / 1100 Balance -400 / -20 Physical Exam Narrative: EXAM NARRATIVE: GENERAL: The patient is alert and oriented times three. Slightly tachypneic. Very hard of hearing. HEENT: No significant pallor, icterus or lymphadenopathy. The pupils are symmetrical. Oral cavity: There are no mucous membrane lesions. NECK: Trachea appears to be central. No masses noted. RESPIRATORY: Chest is symmetrical. No intercostals muscle retraction or any accessory muscle activation. There is no chest wall tenderness. Breath sounds are heard bilaterally. Few fine rales at the bases. No evidence of consolidation. HEART: The PMI is not palpated. No palpable precordial events. The first heart sound is variable. Second arteries normal. Systolic murmur grade 3/6 in the mitral area. No diastolic murmurs. No S3 or S4 heard. No pericardial rub or any click heard. ABDOMEN: No vessel pulsations or distention. No tenderness. No organomegaly appreciated. No abdominal bruit. Bowel sounds are normally heard. : Deferred. RECTAL: Deferred. LYMPHATIC: No lymphadenopathy noted in the neck or groin. EXTREMITIES: No edema or cyanosis. No clubbing. The peripheral pulses are palpable but weak bilaterally. Extremities are warm. MUSCULOSKELETAL: No acute joint deformities or swelling SKIN: There are no significant scars or skin rash noted. NEUROPSYCHIATRIC: The patient is alert and oriented x3. Appears to be in a good mood. The higher functions are grossly within normal limits. No tremors or rigidity noted. Data : 09/12/20 03:33 09/12/20 03:33 A&P Assessment and plan (1) Atherosclerotic heart disease of [place] coronary artery without angina pectoris: Patient underwent a cardiac catheterization today. He was found to have extensive stenting in the LAD, intermedius artery, circumflex and right coronary artery. Stented segments were found to be patent. He has mild to moderate diffuse in-stent narrowing. We will continue to optimize medical treatment. Status: Acute Qualifiers: [place] vs. transplanted heart: [place] heart Qualified Code(s): I25.10 - Atherosclerotic heart disease of [place] coronary artery without angina pectoris (2) Acute on chronic systolic heart failure: The heart failure seems to be getting compensated. Kidney function seems to be stable. Remarkably improved. Continue on the current medications. Status: Acute (3) Atrial fibrillation with RVR: We will continue on the current medications. The heart rate seems to be fairly under control. Seems to be tolerating the digoxin so far well. Status: Acute (4) Chronic anticoagulation: Restart Eliquis tomorrow afternoon. Subcu Lovenox 40 mg in the a.m. Status: Chronic (5) Mitral valve regurgitation: May continue on the current medications. Status: Chronic Qualifiers: Cardiac valve disease etiology: nonrheumatic Qualified Code(s): I34.0 - Nonrheumatic mitral (valve) insufficiency (6) Ischemic cardiomyopathy: Ejection fraction is 25% by LV angiogram. It is high risk for malignant ventricular arrhythmia. He may benefit from LifeVest for primary prophylaxis. It was discussed with the family in detail. We may go ahead and order this. Status: Acute (7) Chronic kidney disease: Careful hydration diet. Repeat BMP in the morning. Status: Acute Qualifiers: Chronic kidney disease stage: stage 3 (moderate) Chronic kidney disease stage 3 subtype: stage 3a (GFR 45-59) Qualified Code(s): N18.31 - Chronic kidney disease, stage 3a Additional A&P Information Repeat BMP and CBC in the morning. Based on the clinical progress, further management decisions will be made. Possible discharge home tomorrow. Attestations Medical Necessity Statement*: Patient requires continued hospital stay for close monitoring and further management Coding Level of Care Code Acute Military Cook for g Fwd Medical Decision Making Moderate Complexity Diagnoses Atherosclerotic heart disease of [place] coronary artery without angina pectoris I25.10 [place] vs. transplanted heart: [place] heart Acute on chronic systolic heart failure I50.23 Atrial fibrillation with RVR I48.91 Chronic anticoagulation Z79.01 Mitral valve regurgitation I34.0 Cardiac valve disease etiology: nonrheumatic Ischemic cardiomyopathy I25.5 Chronic kidney disease N18.31 Chronic kidney disease stage: stage 3 (moderate) Chronic kidney disease stage 3 subtype: stage 3a (GFR 45-59)
--- NOTE | 2020-09-12 19:26 | PC.NURSE ---
received from cardiac forestry laborer at 1730.report received.pt is drowsy but easily awakened.afib on monitor at controlled rate.denies pain.right groin with arterial sheath intact to pressurized system.drsg is dry and intact.no hematoma noted.right dp pulse is palpable.instructed in activity restrictions s/p femoral artery procedure..and instructed to notify staff for any bleeding,pain,sob..or for any concerns at all.pt verb understanding of instructions.
[2020-09-12 19:58] LABS: Partial Thromboplastin Time 30.9 SECONDS (23.9-36.7)
[2020-09-13] VITALS (10 sets, daily range): BP systolic 137–154; BP diastolic 76–110; PULSE 76–93; RESP 17–22; TEMP 36.3–36.6; O2SAT 90–96
[2020-09-13] MEDS: temazepam 15 mg Capsule PO (01:26)
[2020-09-13 04:30] LABS: Anion Gap 11.8 (5-19); Blood Urea Nitrogen 15 mg/dL (8-23); Calcium 8.7 mg/dL (8.5-10.5); Carbon Dioxide 24 mmol/L (22-29); Chloride 106 mmol/L (98-107); Glucose 113 mg/dL (65-115); Osmolality Calculated 288 mOsm/kg (285-295); Potassium 3.8 mmol/L (3.5-5.1); Sodium 138 mmol/L (136-145)
[2020-09-13] MEDS: isosorbide mononitrate ER 60 mg Tablet 30 MG PO (05:58)
[2020-09-13] MEDS: clopidogrel 75 mg Tablet PO (05:58)
--- NOTE | 2020-09-13 06:40 | PC.NURSE ---
2039 on 09/12: Pulled sheath to right groin, held pressure 20 min. No hematoma noted, distal pulses palpable, vitals stable. Dressed site with 4x4 and tegaderm. Patient tolerated procedure well.
[2020-09-13] MEDS: metoprolol tartrate 50 mg Tablet 100 MG PO (08:29)
[2020-09-13] MEDS: allopurinol 100 mg Tablet PO (08:29)
[2020-09-13] MEDS: digoxin 125 mcg Tablet PO (08:29)
[2020-09-13] MEDS: pantoprazole DR 40 mg Tablet PO (08:30)
[2020-09-13] MEDS: losartan 50 mg Tablet 25 MG PO ×2 (08:30→08:31)
--- NOTE | 2020-09-13 08:38 | P.PN_ITS ---
Subjective Subjective: Interval history: Patient is doing okay. No chest pain or chest tightness. He was coughing this morning after breakfast and then his blood pressure was found to be elevated. No hematoma bleeding in the right groin. Medications: Reviewed: Yes Medication Review Details: Current Medications Acetaminophen (Acetaminophen 325 Mg Tablet) 650 mg PO Q6H PRN PRN Reason: MILD PAIN Al Hydrox/Mg Hydrox/Simethicone (Hehk-Xcf-Wrlzrclxz-Love 30 Ml Udc) 30 ml PO Q15M PRN PRN Reason: INDIGESTION Allopurinol (Allopurinol 100 Mg Tablet) 100 mg PO BID [facility] Last Admin: 09/13/20 08:29 Dose: 100 mg Documented by: Alprazolam (Alprazolam 0.5 Mg Tablet) 0.25 mg PO TID PRN PRN Reason: ANXIETY Atorvastatin Calcium (Atorvastatin 40 Mg Tablet) 80 mg PO DAILY@1700 [facility] Last Admin: 09/12/20 18:04 Dose: 80 mg Documented by: Atropine Sulfate (Atropine 1 Mg/Ml Sdv 1 Ml) 0.5 mg IVP PRN PRN PRN Reason: Symptomatic bradycardia Calcium Carbonate (Calcium Carbonate 500 Mg Chew Tablet) 500 mg PO Q4H PRN PRN Reason: INDIGESTION Last Admin: 09/10/20 18:44 Dose: 500 mg Documented by: Clopidogrel Bisulfate (Clopidogrel 75 Mg Tablet) 75 mg PO DAILY@0600 [facility] Last Admin: 09/13/20 05:58 Dose: 75 mg Documented by: Digoxin (Digoxin 125 Mcg Tablet) 125 mcg PO DAILY [facility] Last Admin: 09/13/20 08:29 Dose: 125 mcg Documented by: Furosemide (Furosemide 40 Mg Tablet) 40 mg PO DAILY@0800 [facility] Last Admin: 09/10/20 08:18 Dose: 40 mg Documented by: Sodium Chloride (Sodium Chloride 0.9%) 1,000 mls @ 50 mls/hr IV .Q20H ONE Stop: 09/13/20 11:14 Last Admin: 09/12/20 15:30 Dose: 50 mls/hr Documented by: Sodium Chloride (Sodium Chloride 0.9%) 1,000 mls @ 75 mls/hr IV .Q28Q32M [facility] Last Admin: 09/13/20 06:32 Dose: Not Given Documented by: Isosorbide Mononitrate (Isosorbide Mononitrate Er 60 Mg Tablet) 30 mg PO DAILY@0600 [facility] Last Admin: 09/13/20 05:58 Dose: 30 mg Documented by: Losartan Potassium (Losartan 50 Mg Tablet) 25 mg PO DAILY [facility] Last Admin: 09/13/20 08:31 Dose: 25 mg Documented by: Magnesium Hydroxide (Magnesium Hydroxide 30 Ml Udc) 30 ml PO DAILY PRN PRN Reason: CONSTIPATION Metoprolol Tartrate (Metoprolol Tartrate 50 Mg Tablet) 100 mg PO BID@0900,2100 [facility] Last Admin: 09/13/20 08:29 Dose: 100 mg Documented by: Naloxone HCl (Naloxone 0.4 Mg/Ml Sdv) 0.1 mg IVP Q2M PRN PRN Reason: RESPIRATORY RATE < 8/MIN Nitroglycerin (Nitroglycerin 0.4 Mg Sublingual Tablet) 0.4 mg SUBLINGUAL Q5M PRN PRN Reason: CHEST PAIN Pantoprazole Sodium (Pantoprazole Dr 40 Mg Tablet) 40 mg PO BID@0900,2100 [facility] Last Admin: 09/13/20 08:30 Dose: 40 mg Documented by: Potassium Chloride (Potassium Chloride Er 20 Meq Tablet) 40 meq PO DAILY [facility] Last Admin: 09/10/20 08:18 Dose: 40 meq Documented by: Temazepam (Temazepam 15 Mg Capsule) 15 mg PO BEDTIME PRN PRN Reason: INSOMNIA Last Admin: 09/13/20 01:26 Dose: 15 mg Documented by: Vitals/I&O/Wt Last Vital Signs Temp 97.5 F L 09/13/20 07:42 Pulse 90 09/13/20 08:29 Resp 17 09/13/20 07:42 BP 154/110 09/13/20 08:31 Pulse Ox 92 09/13/20 07:42 09/12/20 09/13/20 09/13/20 22:59 06:59 14:59 Intake Total 540 / 540 100 / 640 Output Total 840 / 840 Balance -300 / -300 100 / -200 Physical Exam Narrative: EXAM NARRATIVE: GENERAL: The patient is alert and oriented times three. Slightly tachypneic. Very hard of hearing. HEENT: No significant pallor, icterus or lymphadenopathy. The pupils are symmetrical. Oral cavity: There are no mucous membrane lesions. NECK: Trachea appears to be central. No masses noted. RESPIRATORY: Chest is symmetrical. No intercostals muscle retraction or any accessory muscle activation. There is no chest wall tenderness. Breath sounds are heard bilaterally. Few fine rales at the bases. No evidence of consolidation. HEART: The PMI is not palpated. No palpable precordial events. The first heart sound is variable. Second arteries normal. Systolic murmur grade 3/6 in the mi tral area. No diastolic murmurs. No S3 or S4 heard. No pericardial rub or any click heard. ABDOMEN: No vessel pulsations or distention. No tenderness. No organomegaly appreciated. No abdominal bruit. Bowel sounds are normally heard. : Deferred. RECTAL: Deferred. LYMPHATIC: No lymphadenopathy noted in the neck or groin. EXTREMITIES: MUSCULOSKELETAL: No acute joint deformities or swelling SKIN: There are no significant scars or skin rash noted. NEUROPSYCHIATRIC: The patient is alert and oriented x3. Appears to be in a good mood. The higher functions are grossly within normal limits. No tremors or rigidity noted. Data : 09/12/20 03:33 09/13/20 03:57 Other Labs: Laboratory Last Values WBC 11.6 10^3/uL (4.0-10.0) H 09/12/20 03:33 RBC 4.83 10^6/uL (4.1-5.3) 09/12/20 03:33 Hgb 14.4 g/dL (11.7-16.6) 09/12/20 03:33 Hct 44.2 % (42.0-52.0) 09/12/20 03:33 MCV 91.5 fL (80-94) 09/12/20 03:33 MCH 29.8 pg (28.0-34.0) 09/12/20 03:33 MCHC 32.6 g/dL (30.0-36.0) 09/12/20 03:33 RDW 15.8 % (12.1-15.1) H 09/12/20 03:33 Plt Count 213 10^3/cmm (130-400) 09/12/20 03:33 MPV 10.5 fL (7.4-10.4) H 09/12/20 03:33 Neut % (Auto) 76.0 % 09/12/20 03:33 Lymph % (Auto) 15.4 % 09/12/20 03:33 [place] % (Auto) 6.2 % 09/12/20 03:33 Eos % (Auto) 1.6 % 09/12/20 03:33 Baso % (Auto) 0.5 % 09/12/20 03:33 Neut # (Auto) 8.77 10^3/uL (1.8-7.7) H 09/12/20 03:33 Lymph # (Auto) 1.8 10^3/uL (0.8-4.8) 09/12/20 03:33 [place] # (Auto) 0.7 10^3/uL (0.2-0.9) 09/12/20 03:33 Eos # (Auto) 0.2 10^3/uL (0.0-0.8) 09/12/20 03:33 Baso # (Auto) 0.1 10^3/uL (0.0-0.1) 09/12/20 03:33 Nucleated RBC % (auto) 0 % 09/12/20 03:33 Nucleated RBCs # 0.0 /100WBC 09/12/20 03:33 APTT 30.9 SECONDS (23.9-36.7) 09/12/20 19:38 D-Dimer 0.77 ug/mIFEU (0-0.59) H 09/08/20 11:13 Sodium 138 mmol/L (136-145) 09/13/20 03:57 Potassium 3.8 mmol/L (3.5-5.1) 09/13/20 03:57 Chloride 106 mmol/L (98-107) 09/13/20 03:57 Carbon Dioxide 24 mmol/L (22-29) 09/13/20 03:57 Anion Gap 11.8 (5-19) 09/13/20 03:57 BUN 15 mg/dL (8-23) 09/13/20 03:57 Creatinine 1.2 mg/dL (0.7-1.2) 09/13/20 03:57 GFR Calculation Not Reportable 09/13/20 03:57 Glucose 113 mg/dL (65-115) 09/13/20 03:57 Calculated Osmolality 288 mOsm/kg (285-295) 09/13/20 03:57 Calcium 8.7 mg/dL (8.5-10.5) 09/13/20 03:57 Magnesium 2.3 mg/dL (1.7-2.3) 09/08/20 13:50 Total Bilirubin 0.7 mg/dL (0.15-1.2) 09/08/20 11:13 AST 39 U/L (0-40) 09/08/20 11:13 ALT 44 U/L (0-41) H 09/08/20 11:13 Alkaline Phosphatase 112 IU/L (40-130) 09/08/20 11:13 Troponin T Baseline 60 ng/L (0-15) H 09/08/20 11:13 Troponin T 120 Minute 50.23 ng/L (0-15) H 09/08/20 13:50 Delta Troponin T -9.77 ABS# (0-10) L 09/08/20 13:50 Troponin T Hi Sens 6Hr 49.86 ng/L (0-15) H 09/08/20 17:52 Troponin T Hi Sens 6Hr Delta -10.14 ng/L (0-12) L 09/08/20 17:52 NT-Pro-B Natriuret Pep 38034 pg/mL (0-450) H 09/08/20 11:13 Total Protein 6.4 g/dL (6.6-8.7) L 09/08/20 11:13 Albumin 3.6 g/dL (3.5-5.2) 09/08/20 11:13 Globulin 2.8 g/dL (1.3-4.6) 09/08/20 11:13 TSH 3.49 uIU/mL (0.27-4.20) 09/08/20 11:13 Urine Color Straw (Yellow) 09/08/20 11:30 Urine Appearance Clear (CLEAR) 09/08/20 11:30 Urine pH 6 (5-7) 09/08/20 11:30 Ur Specific [place] 1.015 (1.005-1.030) 09/08/20 11:30 Urine Protein Neg (Negative) 09/08/20 11:30 Urine Glucose (UA) Norm (Normal) 09/08/20 11:30 Urine Ketones Negative (Negative) 09/08/20 11:30 Urine Blood Neg (Negative) 09/08/20 11:30 Urine Nitrate Negative (Negative) 09/08/20 11:30 Urine Bilirubin Neg (Negative) 09/08/20 11:30 Urine Urobilinogen Norm mg/dL (Negative) 09/08/20 11:30 Ur Leukocyte Esterase Negative (Negative) 09/08/20 11:30 SARS-CoV-2 Ag (Rapid) Negative (Negative) 09/08/20 12:02 A&P Assessment and plan (1) Atherosclerotic heart disease of [place] coronary artery without angina pectoris: Patient underwent a cardiac catheterization yesterday He was found to have extensive stenting in the LAD, intermedius artery, circumflex and right coronary artery. Stented segments were found to be patent. He has mild to moderate diffuse in-stent narrowing. We will continue to optimize medical treatment. We will continue on the current medications Status: Acute Qualifiers: [place] vs. transplanted heart: [place] heart Qualified Code(s): I25.10 - Atherosclerotic heart disease of [place] coronary artery without angina pectoris (2) Acute on chronic systolic heart failure: The heart failure seems to be getting compensated. Kidney function seems to be stable. Remarkably improved. Continue on the current medications. Status: Acute (3) Atrial fibrillation with RVR: We will continue on the current medications. The heart rate seems to be fairly under control. Seems to be tolerating the digoxin so far well. Restart the Eliquis this evening Status: Acute (4) Chronic anticoagulation: Restart Eliquis tomorrow afternoon. Subcu Lovenox 40 mg in the a.m. Status: Chronic (5) Mitral valve regurgitation: May continue on the current medications. Status: Chronic Qualifiers: Cardiac valve disease etiology: nonrheumatic Qualified Code(s): I34.0 - Nonrheumatic mitral (valve) insufficiency (6) Ischemic cardiomyopathy: Ejection fraction is 25% by LV angiogram. It is high risk for malignant ventricular arrhythmia. He may benefit from LifeVest for primary prophylaxis. It was discussed with the family in detail. We may go ahead and order this. Status: Acute (7) Chronic kidney disease: The BMP this morning is looking good. May continue on the current medications Status: Acute Qualifiers: Chronic kidney disease stage: stage 3 (moderate) Chronic kidney disease stage 3 subtype: stage 3a (GFR 45-59) Qualified Code(s): N18.31 - Chronic kidney disease, stage 3a Attestations Medical Necessity Statement*: Possible discharge home today. Coding Level of Care Code Acute [employer] for Chg Fwd Diagnoses Atherosclerotic heart disease of [place] coronary artery without angina pectoris I25.10 [place] vs. transplanted heart: [place] heart Acute on chronic systolic heart failure I50.23 Atrial fibrillation with RVR I48.91 Chronic anticoagulation Z79.01 Mitral valve regurgitation I34.0 Cardiac valve disease etiology: nonrheumatic Ischemic cardiomyopathy I25.5 Chronic kidney disease N18.31 Chronic kidney disease stage: stage 3 (moderate) Chronic kidney disease stage 3 subtype: stage 3a (GFR 45-59)
--- NOTE | 2020-09-13 11:42 | P.DS_ITS ---
Discharge Providers Date of Admission: 09/09/20 16:38 Date of Discharge: September 13, 2020 Attending Provider at Admission: Sheila Brandt MD Attending Provider at Discharge: Sheila Brandt MD Primary Care Provider: Raymond Reddy MD Diagnoses at Discharge Discharge Diagnosis (1) Atherosclerotic heart disease of [place] coronary artery without angina pectoris: Status: Acute Qualifiers: [place] vs. transplanted heart: [place] heart Qualified Code(s): I25.10 - Atherosclerotic heart disease of [place] coronary artery without angina pectoris (2) Acute on chronic systolic heart failure: Status: Acute (3) Atrial fibrillation with RVR: Status: Acute (4) Chronic anticoagulation: Status: Chronic Permanent problem details: eliquis (5) Mitral valve regurgitation: Status: Chronic Qualifiers: Cardiac valve disease etiology: nonrheumatic Qualified Code(s): I34.0 - Nonrheumatic mitral (valve) insufficiency (6) Ischemic cardiomyopathy: Status: Acute (7) Chronic kidney disease: Status: Acute Qualifiers: Chronic kidney disease stage: stage 3 (moderate) Chronic kidney disease stage 3 subtype: stage 3a (GFR 45-59) Qualified Code(s): N18.31 - Chronic kidney disease, stage 3a Reason for Visit Reason for Visit: SOB Hospital Course Hospital Course HPI: Stanislav uW is a 80 year old male who has multiple comorbid conditions was recently discharged on 08/06 after management of heat exhaustion, polypharmacy, his Lasix, spironolactone and lisinopril were discontinued secondary to worsening kidney function(EF 35 to 40%) and metoprolol dose was decreased to 25 mg daily presented today with chief complaint of worsening shortness of breath. Patient is stating that he started experiencing mild shortness of breath last night which she is describing as orthopnea and PND, he felt better when he slept in his recliner. With this shortness of breath he did not experience any chest pain no recent fever, flulike symptoms myalgias or diarrhea. 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 Diagnostics in the ER revealed A. fib with RVR he was given Cardizem 10 mg IV push which did not improve his heart rate Dr. Sherman recommended esmolol gtt. secondary to mildly reduced ejection fraction. Normal potassium and magnesium level, normal TSH EKG without ischemic or infarctive changes downtrending troponin. Patient has history of coronary disease status post 16 stents. Endorsing history of cardiac arrest with anesthesia, high risk for any kind of surgical intervention however AICD has not been placed for secondary prevention Of note, hypoechoic solid mass posterior to urine bladder was found however CT scan abdomen did not show any mass he has multiple renal cysts largest measuring 4 cm, cholelithiasis without active symptoms. Hospital course Mr. Wu was admitted for management of symptomatic A. fib with acute RVR, he was started on esmolol drip which took about 48 hours to control his heart rate on 100 mics per kilo per hr. he was then transitioned to metoprolol 100 mg twice a day and digoxin was added by Dr. Sherman which controlled his heart rate below 90s. He stayed hemodynamically stable his symptoms improved. Limited echo was done which showed reduced ejection fraction for which he underwent cardiac catheterization. For the procedure he was put on Lovenox therapeutic dose. For details kindly see the report, no intervention was done. Plan is to discharge today on . He is to start Entresto on Thursday he received losartan during hospitalization. His volume status stayed euvolemic his chest x-ray did not show any pulmonary edema he did not show any signs of fluid overload however BNP was high which could be secondary to his underlying chronic pulmonary pathology. Discharge med rec has been done by Dr. Sherman. Medications added: Digoxin 125 mcg Metoprolol 100 mg twice a day(increased dose) Protonix Medications held: Cardizem, Medications to be resumed: Eliquis starting this evening Medications to start on Thursday: Entresto Physical Exam Narrative: EXAM NARRATIVE: Patient was lying comfortably in his bed without any active discomfort Very pleasant and cooperative during my evaluation Variable S1-S2 no active signs of heart failure Soft abdomen without peritonitis Awake alert oriented x3, GCS 15 EOMI, PERRLA Appropriate mood and affect Discharge Data Data Completed and Pending: Completed Studies During Hospitalization Category Date Time Status SPECIAL EVENTS DIRECTOR request for service Routin e Exams 09/12/20 16:18 Completed XR chest 1V estefanía ble 62208 Urgent Exams 09/08/20 11:12 Completed CV. echo limited [id number] Routine Ultrasound 09/09/20 10:34 Completed Labs from last 24 hours 09/13/20 09/12/20 03:57 19:38 APTT 30.9 Sodium 138 Potassium 3.8 Chloride 106 Carbon Dioxide 24 Anion Gap 11.8 BUN 15 Creatinine 1.2 GFR Calculation Not Reportable Glucose 113 Calculated Osmolal ity 288 Calcium 8.7 Vitals: Last Vital Signs Temp 97.5 F L 09/13/20 10:00 Pulse 79 09/13/20 10:00 Resp 17 09/13/20 10:00 BP 152/102 09/13/20 10:00 Pulse Ox 92 09/13/20 10:00 Discharge Plan Discharge Patient Disposition: Home Condition: Stable Prescriptions: New metoprolol tartrate 50 mg Tablet 100 mg PO BID@0900,2100 30 Days Qty: 60 RF: 0 digoxin 125 mcg (0.125 mg) Tablet 125 mcg PO DAILY 30 Days Qty: 30 RF: 0 pantoprazole 40 mg Tablet,Delayed Release (Dr/Ec) 40 mg PO DAILY 30 Days Qty: 30 RF: 0 Continued fentanyl 50 mcg/hr patch 72 hour 50 mcg topical Q72H 30 Days Qty: 10 RF: 0 ascorbic acid (vitamin C) 500 mg tablet extended release 500 mg PO BID@ RF: 0 omega-3 fatty acids [Fish Oil Concentrate] 1,000 mg capsule 1,000 mg PO DAILY@07 RF: 0 (DME) CPAP See Rx Instructions .Route .MEDSUPPLY Qty: 1 RF: 0 Eliquis 5 mg tablet 5 mg PO Q12H Qty: 60 RF: 0 polyethylene glycol 3350 [Miralax] 17 gram/dose powder 17 gm PO DAILY@1700 RF: 0 latanoprost 0.005 % drops 1 drp ophthalmic (eye) BID@ RF: 0 brimonidine 0.2 % drops 1 drp ophthalmic (eye) BID@,17 RF: 0 vitamin E 400 unit Capsule 400 unit PO DAILY@06 RF: 0 atorvastatin 80 mg tablet 80 mg PO DAILY@1700 RF: 0 hydrocodone-acetaminophen 5-325 mg tablet 1 tab PO Q8H PRN (Reason: Pain) RF: 0 clopidogrel 75 mg tablet 75 mg PO DAILY@0600 RF: 0 nitroglycerin 0.4 mg tablet, sublingual 0.4 mg sublingual Q5M MDD 3 tabs PRN (Reason: Chest Pain) RF: 0 ezetimibe 10 mg tablet 10 mg PO DAILY@0600 RF: 0 isosorbide mononitrate 60 mg tablet extended release 24 hr 30 mg PO DAILY@0600 Qty: 0 RF: 0 meloxicam 15 mg tablet 15 mg PO DAILY RF: 0 allopurinol 100 mg Tablet 100 mg PO BID RF: 0 Changed furosemide 40 mg tablet 40 mg PO DAILY Qty: 180 RF: 3 valsartan 80 mg tablet 160 mg PO DAILY Qty: 180 RF: 3 potassium chloride 20 mEq tablet,ER particles/crystals 20 meq PO DAILY Qty: 180 RF: 3 Discontinued Entresto 24-26 mg tablet 1 tab PO BID Qty: 60 RF: 11 omeprazole 20 mg capsule,delayed release(DR/EC) 20 mg PO BID@ RF: 0 diltiazem HCl 120 mg capsule,extended release 12 hr 120 mg PO DAILY MDD see pharmacy comment RF: 0 lisinopril 40 mg tablet 40 mg PO DAILY RF: 0 metoprolol tartrate 25 mg Tablet 25 mg PO BID MDD see pharmacy comment RF: 0 Discharge Orders: Discharge Order (Routine); Ordered 09/13/20 Ordered By: Red Sherman Referrals: Raymond Reddy MD [Primary Care Provider] - 09/17/20 2:15 pm (You have a hospital followup with Dr. Reddy at [facility] on September 17 at 2:15pm ) Pedro Sherman MD [Referring] - 10/16/20 1:45 pm (You have a Cardiology followup with Dr. Sherman at [facility] on October 16 at 1:45pm) Paulette Summers FNP [Nurse Practitioner] - 09/20/20 10:45 am (You have a post procedure followup with MEJIA Boss at [facility] on September 20 10:45am) Discharge Diet: Cardiac Discharge Activity: Increase activity as tolerated Patient Instructions: Metoprolol (By mouth), Digoxin (By mouth), Pantoprazole (By mouth), Chest Pain Stoplight, Opioid Safety Activity Restrictions/Additional Instructions: Patient is to stop the valsartan, when he starts taking the Entresto on Thursday. [facility]ment [facility] next week to be seen by the nurse practitioner Appoint with me in the office in 1 month Start taking the Eliquis this evening Make sure that he takes the medications as prescribed Let him check with the physician who prescribed the fentanyl, hydrocodone and meloxicam as to whether he needs to continue on these medes? Discharge Attestations Time Spent in Discharge Care*: less than 30 min Status at Discharge: Cognitive status at discharge: cognitively intact , Behavioral status at discharge: cooperative and independent in ADL's , Quality Metrics Clinical Quality Measures During this hospital stay, did patient experience: None Coding Level of Care Code Acute [facility] note Diagnoses Atherosclerotic heart disease of [place] coronary artery without angina pectoris I25.10 [place] vs. transplanted heart: [place] heart Acute on chronic systolic heart failure I50.23 Atrial fibrillation with RVR I48.91 Chronic anticoagulation Z79.01 Mitral valve regurgitation I34.0 Cardiac valve disease etiology: nonrheumatic Ischemic cardiomyopathy I25.5 Chronic kidney disease N18.31 Chronic kidney disease stage: stage 3 (moderate) Chronic kidney disease stage 3 subtype: stage 3a (GFR 45-59)
--- NOTE | 2020-09-13 11:45 | PC.NURSE ---
Discharge pending arrival and education on life vest.
== END 2020-09-13 14:30 | disposition home or self-care (01) | DRG 286 ==
LOC: ER 14:29 → ICU 15:36 → CSU 09-10 22:59
PROVIDERS: Internal Medicine Cardiovascular Disease; Admitting Provider Internal Medicine; Emergency Provider Family Medicine; PCP Internal Medicine; Visit Provider Internal Medicine
PROC: B211YZZ Fluoroscopy of Multiple Coronary Arteries using Other Contrast (ICD-10-PCS; principal; 2020-09-12 16:30)
DX: I48.20 Chronic atrial fibrillation, unspecified (principal); I50.23 Acute on chronic systolic (congestive) heart failure; I13.0 Hypertensive heart and chronic kidney disease with heart failure and stage 1 through stage 4 chronic kidney disease, or unspecified chronic kidney disease; T82.855A Stenosis of coronary artery stent, initial encounter; Y71.1 Therapeutic (nonsurgical) and rehabilitative cardiovascular devices associated with adverse incidents; I48.91 Unspecified atrial fibrillation; I25.118 Atherosclerotic heart disease of native coronary artery with other forms of angina pectoris; I34.0 Nonrheumatic mitral (valve) insufficiency; N18.31 Chronic kidney disease, stage 3a; E78.5 Hyperlipidemia, unspecified; K21.9 Gastro-esophageal reflux disease without esophagitis; I25.5 Ischemic cardiomyopathy; N39.3 Stress incontinence (female) (male); M19.90 Unspecified osteoarthritis, unspecified site; I25.2 Old myocardial infarction; Z79.01 Long term (current) use of anticoagulants; Z85.46 Personal history of malignant neoplasm of prostate; Z95.5 Presence of coronary angioplasty implant and graft
CPT/HCPCS: 36415; 71045; 80048; 80053; 81003; 83735; 83880; 84443; 84484; 85025; 85378; 85730; 87426; 93005; 93308; 93452; 96361; 96372; 96374; 99285; C1769; C1887; G0378; J1160; J1644; J1650; J1940; J2250; J3010; J3490; J7030; J7040; Q0163; Q9967

== ENCOUNTER → 2020-09-27 08:23 | Outpatient (BNVA) | payer MEDICARE, SELFPAY | PROVIDERS: PCP Internal Medicine; Visit Provider Internal Medicine Cardiovascular Disease | DX: I50.23 Acute on chronic systolic (congestive) heart failure (principal); I50.9 Heart failure, unspecified | CPT/HCPCS: 80048 ==

== ENCOUNTER → 2020-10-16 14:39 | Outpatient (BNVA) | payer MEDICARE, SELFPAY | PROVIDERS: PCP Internal Medicine; Visit Provider Internal Medicine Cardiovascular Disease | DX: I25.5 Ischemic cardiomyopathy (principal); I50.33 Acute on chronic diastolic (congestive) heart failure; R06.02 Shortness of breath; R94.39 Abnormal result of other cardiovascular function study; I10 Essential (primary) hypertension | CPT/HCPCS: 80048; 80162; 83880 ==

== ENCOUNTER → 2020-10-31 08:42 | Outpatient (BNVA) | payer MEDICARE, SELFPAY | PROVIDERS: PCP Internal Medicine; Visit Provider Internal Medicine Cardiovascular Disease | DX: I25.5 Ischemic cardiomyopathy (principal); E78.5 Hyperlipidemia, unspecified; I25.10 Atherosclerotic heart disease of native coronary artery without angina pectoris; R06.00 Dyspnea, unspecified; I50.23 Acute on chronic systolic (congestive) heart failure | CPT/HCPCS: 80048; 83880 ==

== ENCOUNTER 2020-11-09 08:58 | Inpatient (IN) | payer MEDICARE, SELFPAY ==
[2020-11-09] VITALS (11 sets, daily range): BP systolic 100–131; BP diastolic 76–98; PULSE 89–124; RESP 17–26; TEMP 36.4–36.7; O2SAT 87–98; BMI 23.8; BMI 22.3
--- NOTE | 2020-11-09 09:12 | ED_ITS ---
HPI - General Adult General: Chief complaint: General Medical Stated complaint: SOB with exertion, worsening orthopnea, edema Time Seen by Provider: 11/09/20 09:12 History of Present Illness: HPI narrative: Mr. Wu is an 80-year-old gentleman with complex past medical history including atrial fibrillation, history of prostate cancer, heart failure with reduced ejection fraction who presents emergency department due to shortness of breath. Symptom onset has been progressive over a number of weeks. He endorses initially just feeling more fatigued however he now has moderate to severe decreased exercise tolerance, orthopnea, and has noticed lower extremity edema. He has follow-up with his primary care provider however, despite medication changes, feels like he is worsening. Overall the course of symptoms has been worsening. He denies infectious symptoms. No other new, exacerbating, or alleviating factors identified. Review of Systems General: Reports: 10 or more systems reviewed and unremarkable except in HPI and below Narrative: CONSTITUTIONAL: denies fever, positive for fatigue, weakness EYES - denies pain, denies loss of vision EARS - denies ear issues. NOSE - denies congestion or rhinorrhea. THROAT - denies sore throat or difficulty swallowing. CARDIOVASCULAR - denies chest pain and palpitations. Lower extremity edema. RESPIRATORY -shortness of breath without cough. Positive for orthopnea and dyspnea on exertion. GASTROINTESTINAL - denies abdominal pain, no nausea vomiting, no changes in bowel habits GENITOURINARY - denies dysuria or urinary frequency MUSCULOSKELETAL- denies deformity or pain SKIN - denies rashes or new changed skin lesions NEUROLOGIC - denies focal weakness or sensory changes HEMATOLOGIC/LYMPHATIC - denies easy bruising or lymphadenopathy. 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 LV systolic function is moderately reduced with EF of 35 to 40%. There is severe hypokinesis of anterior and apical peña. Diastolic function is indeterminate because of atrial fibrillation. There is mild to moderate mitral regurgitation. Mild aortic regurgitation is seen. Mild pulmonic regurgitation is present. RVSP is 45 to 50 mmHg consistent with moderate pulmonary hypertension. Compared to prior study from 06/30/2018, LV systolic function is now further decreased to 35 to 40%. Atrial fibrillation Benign essential hypertension with target blood pressure below 140/90 Cardiac arrest High risk for any kind of surgical intervention, because of history of cardiac arrest with general anesthesia Cardiac LV ejection fraction >40% Chronic kidney disease Congestive heart failure Dyslipidemia (high LDL; low HDL) Erectile dysfunction Essential (primary) hypertension GERD (gastroesophageal reflux disease) Gout Hiatal hernia History of prostate cancer Hx of angiography Ischemic cardiomyopathy History of 16 stents Mitral valve regurgitation Osteoarthritis VENU (stress urinary incontinence), male Surgical History History of appendectomy History of carpal tunnel release History of hemorrhoidectomy History of inguinal hernia repair History of left hip replacement History of left shoulder replacement History of prostatectomy S/P PTCA (percutaneous transluminal coronary angioplasty) Family History Brother CAD (coronary artery disease) Diabetes Heart disease Father CAD (coronary artery disease) Heart disease Sister CAD (coronary artery disease) Cancer Diabetes Heart disease Mother Diabetes Stroke Grandmother Diabetes Denies family history of Clotting disorder Dementia Chronic kidney disease (CKD) Suicide Anesthesia complication Bleeding disorder Lung disease Social History Smoking and tobacco status: former smoker Alcohol intake: never History of recent travel: No Physical Exam Narrative: EXAM NARRATIVE: GENERAL/CONSTITUTIONAL -mildly ill-appearing. No acute distress. Increased work of breathing and supplemental oxygen in place. Eyes - PERRL, no conjunctival injection ENMT - Atraumatic external nose and ears. Moist mucous membranes NECK - supple. trachea midline CARDIOVASCULAR -tachycardic rate minimally and irregular. Peripheral pulses 2+ and equal. 1-2+ pitting edema to the knee bilaterally symmetric. RESPIRATORY -clear to auscultation bilaterally. No retractions or accessory muscle use. ABDOMEN/GI - Nontender/Nondistended. No tenderness to percussion or evidence of peritonitis MSK - Extremities without obvious deformity or tenderness to palpation SKIN - Warm, Dry NEURO - alert and appropriately oriented. strength and sensation intact. Moves all extremities equally. PSYCH - Appropriate mood and affect Course ED course: - Patient was seen and evaluated by me at bedside - Patient placed on cardiac monitors, IV access obtained - Initial evaluation notable for no acute distress, nontoxic appearance. Supplemental oxygen in place - Labs notable for evidence of volume overload, negative delta troponin. - Imaging notable for small pleural effusion - Upon serial reexamination after treatment the patient was similar - Based on patient history, evaluation, labs, and imaging as interpreted the most likely cause of the patient's condition is acute on chronic heart failure with new oxygen requirement - The results of ED evaluation were discussed with the patient including plan for admission due to requirement for level of care not available if discharged to prevent significant worsening/deterioration. -Hospitalist service contacted and agreed admit the patient. - Patient was admitted without further deterioration or significant events. Vital Signs: Vital signs: Vital Signs Temperature 98.1 F 11/09/20 19:05 Pulse Rate 98 11/10/20 05:57 Respiratory Rate 17 11/10/20 05:49 Blood Pressure 129/91 11/10/20 05:49 Pulse Oximetry 95 11/09/20 19:35 MDM - General Adult Medical Records: Attestation: I reviewed the patient's medical records. Lab Data: Attestation: I reviewed the patient's lab results. Labs: Lab Results 11/09/20 11/09/20 11/09/20 Range/Units 09:23 09:23 09:23 WBC 7.8 (4.0-10.0) 10^3/ uL RBC 4.45 (4.1-5.3) 10^6/u L Hgb 13.3 (11.7-16.6) g/dL Hct 40.7 L (42.0-52.0) % MCV 91.5 (80-94) fl MCH 29.9 (28.0-34.0) pg MCHC 32.7 (30.0-36.0) g/dL RDW 13.5 (12.1-15.1) % Plt Count 198 (130-400) 10^3/c mm MPV 10.7 H (7.4-10.4) fL Neut % (Auto) 78.6 % Lymph % (Auto) 11.9 % [place] % (Auto) 7.3 % Eos % (Auto) 1.3 % Baso % (Auto) 0.6 % Neut # (Auto) 6.13 (1.8-7.7) 10^3/u L Lymph # (Auto) 0.9 (0.8-4.8) 10^3/u L [place] # (Auto) 0.6 (0.2-0.9) 10^3/u L Eos # (Auto) 0.1 (0.0-0.8) 10^3/u L Baso # (Auto) 0.1 (0.0-0.1) 10^3/u L Nucleated RBC % (a uto) 0 % Nucleated RBCs # 0.0 /100WBC Sodium 137 (136-145) mmol/L Potassium 3.9 (3.5-5.1) mmol/L Chloride 106 (98-107) mmol/L Carbon Dioxide 22 (22-29) mmol/L Anion Gap 12.9 (5-19) BUN 14 (8-23) mg/dL Creatinine 1.0 (0.7-1.2) mg/dL GFR Calculation Not Reportable Glucose 145 H (65-115) mg/dL Calculated Osmolal ity 287 (285-295) mOsm/k g Calcium 8.4 L (8.5-10.5) mg/dL Total Bilirubin 0.9 (0.15-1.2) mg/dL AST 19 (0-40) U/L ALT 19 (0-41) U/L Alkaline Phosphata se 99 (40-130) IU/L Troponin T Baselin e 44 H (0-15) ng/L Troponin T 120 Min [place]ona (0-15) ng/L Delta Troponin T (0-10) ABS# NT-Pro-B Natriuret Pep 01940 H (0-450) pg/mL Total Protein 5.8 L (6.6-8.7) g/dL Albumin 3.4 L (3.5-5.2) g/dL Globulin 2.4 (1.3-4.6) g/dL Procalcitonin (0-0.5) ng/mL SARS-CoV-2 Ag (Rap id) (Negative) 11/09/20 11/09/20 11/09/20 Range/Units 09:23 11:22 11:40 WBC (4.0-10.0) 10^3/ uL RBC (4.1-5.3) 10^6/u L Hgb (11.7-16.6) g/dL Hct (42.0-52.0) % MCV (80-94) fl MCH (28.0-34.0) pg MCHC (30.0-36.0) g/dL RDW (12.1-15.1) % Plt Count (130-400) 10^3/c mm MPV (7.4-10.4) fL Neut % (Auto) % Lymph % (Auto) % [place] % (Auto) % Eos % (Auto) % Baso % (Auto) % Neut # (Auto) (1.8-7.7) 10^3/u L Lymph # (Auto) (0.8-4.8) 10^3/u L [place] # (Auto) (0.2-0.9) 10^3/u L Eos # (Auto) (0.0-0.8) 10^3/u L Baso # (Auto) (0.0-0.1) 10^3/u L Nucleated RBC % (a uto) % Nucleated RBCs # /100WBC Sodium (136-145) mmol/L Potassium (3.5-5.1) mmol/L Chloride (98-107) mmol/L Carbon Dioxide (22-29) mmol/L Anion Gap (5-19) BUN (8-23) mg/dL Creatinine (0.7-1.2) mg/dL GFR Calculation Glucose (65-115) mg/dL Calculated Osmolal ity (285-295) mOsm/k g Calcium (8.5-10.5) mg/dL Total Bilirubin (0.15-1.2) mg/dL AST (0-40) U/L ALT (0-41) U/L Alkaline Phosphata se (40-130) IU/L Troponin T Baselin e (0-15) ng/L Troponin T 120 Min ramona 43.36 H (0-15) ng/L Delta Troponin T -0.64 L (0-10) ABS# NT-Pro-B Natriuret Pep (0-450) pg/mL Total Protein (6.6-8.7) g/dL Albumin (3.5-5.2) g/dL Globulin (1.3-4.6) g/dL Procalcitonin 0.07 (0-0.5) ng/mL SARS-CoV-2 Ag (Rap id) Negative (Negative) EKG Data^: EKG 1: Attestation: I personally reviewed and interpreted this EKG as follows: EKG interpretation date: 11/09/20 EKG interpretation time: 09:35 Prior EKG tracings: available for review Interpretation: Twelve-lead EKG shows an irregular rhythm at a rate of 100. No OK interval, QRS duration 102, QTc 443. Left axis deviation. Interpretation: Atrial fibrillation. Computer generated interpretation: Chest X-Ray 11/09/20 09:25 IMPRESSION: Lung consolidation and/or pleural effusion in the left lower hemithorax. EKG 2: Attestation: I personally reviewed and interpreted this EKG as follows: EKG interpretation date: 11/09/20 EKG interpretation time: 12:53 Interpretation: Twelve-lead EKG shows a irregular rhythm at a rate of 104. OK interval not present, QRS duration 113, QTc 395. Left axis deviation. Interpretation: Atrial fibrillation. Tachycardia. Computer generated interpretation: Chest X-Ray 11/09/20 09:25 IMPRESSION: Lung consolidation and/or pleural effusion in the left lower hemithorax. EKG 3: Attestation: I personally reviewed and interpreted this EKG as follows: EKG interpretation date: 11/09/20 EKG interpretation time: 15:32 Prior EKG tracings: available for review Interpretation: Twelve-lead EKG shows an irregular rhythm at a rate of 102. No OK interval, QRS duration 113, QTc 397. Left axis deviation. Interpretation: Atrial fibrillation. Tachycardia. Computer generated interpretation: Chest X-Ray 11/09/20 09:25 IMPRESSION: Lung consolidation and/or pleural effusion in the left lower hemithorax. 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
--- NOTE | 2020-11-09 09:25 | ECG_ITS ---
[facility] Test Date: 2020-11-09 Pat Name: Stanislav Wu Department: Room: Gender: Male Linker Up: : 1940 Requested By: Juma Rouse Order Number: [id number] Patrica MD: Florence Suarez M.D. Measurements Intervals [place] Rate: 104 P: [place]: QRS: -70 QRSD: 113 T: 93 QT: 334 QTc: 441 Interpretive Statements ATRIAL FIBRILLATION WITH RAPID VENTRICULAR RESPONSE LEFT ANTERIOR FASCICULAR BLOCK [QRS AXIS <= -45, QR IN I, RS IN II] POSSIBLE INFERIOR MYOCARDIAL INFARCTION , PROBABLY OLD [30 ms Q WAVE IN II/aVF] ANTEROLATERAL MYOCARDIAL INFARCTION , AGE INDETERMINATE Compared to ECG 11/09/2020 09:30:29 No significant changes Electronically Signed On 11-09-2020 18:29:08 CDT by Florence Suarez M.D. [email or web address].[email or web address]/store/[id number]
--- NOTE | 2020-11-09 09:25 | XR_ITS ---
WS: [id number] XR chest 1V portable [id number] REASON FOR EXAM: sob FINDINGS: Moderate tortuosity of the thoracic aorta with tortuous innominate artery overlying the medial right lung apex. Moderate cardiomegaly. Calcified granulomatous disease in both hemithoraces. Compared to previous examination of 09/08/2020, there is loss of the left hemidiaphragmatic contour an d increased density in the left lower hemithorax with blunting of the costophrenic angle. Previous total left shoulder arthroplasty and severe arthropathic change in the right shoulder. XR/XR chest 1V portable [id number] IMPRESSION: Lung consolidation and/or pleural effusion in the left lower hemithorax.
[2020-11-09 09:31] LABS: Basophils # 0.1 10^3/uL (0.0-0.1); Basophils % 0.6 %; Eosinophils # 0.1 10^3/uL (0.0-0.8); Eosinophils % 1.3 %; Hematocrit 40.7 % (42.0-52.0); Hemoglobin 13.3 g/dL (11.7-16.6); Lymphocytes # 0.9 10^3/uL (0.8-4.8); Lymphocytes % 11.9 %; Mean Corpuscular HGB Conc 32.7 g/dL (30.0-36.0); Mean Corpuscular Hemoglobin 29.9 pg (28.0-34.0); Mean Corpuscular Volume 91.5 fl (80-94); Mean Platelet Volume 10.7 fL (7.4-10.4); Monocytes # 0.6 10^3/uL (0.2-0.9); Monocytes % 7.3 %; Neutrophils # 6.13 10^3/uL (1.8-7.7); Neutrophils % 78.6 %; Nucleated Red Blood Cells % 0 %; Platelet Count 198 10^3/cmm (130-400); Red Blood Count 4.45 10^6/uL (4.1-5.3); Red Cell Distribution Width 13.5 % (12.1-15.1); White Blood Count 7.8 10^3/uL (4.0-10.0)
--- NOTE | 2020-11-09 09:41 | PC.NURSE ---
Wearing a defibrillator from Dr Sherman office. Symptoms for 3-4 weeks. SOB with any and every kind of activities
[2020-11-09 10:00] LABS: Troponin(5th) Baseline 44 ng/L (0-15)
[2020-11-09 10:06] LABS: Alanine Aminotransferase 19 U/L (0-41); Albumin Level 3.4 g/dL (3.5-5.2); Alkaline Phosphatase 99 IU/L (40-130); Anion Gap 12.9 (5-19); Aspartate Amino Transferase 19 U/L (0-40); Blood Urea Nitrogen 14 mg/dL (8-23); Calcium 8.4 mg/dL (8.5-10.5); Carbon Dioxide 22 mmol/L (22-29); Chloride 106 mmol/L (98-107); Creatinine Clr Calc Pharmacy 58.6978; Globulin 2.4 g/dL (1.3-4.6); Glucose 145 mg/dL (65-115); NT Pro B Type Natriuretic Pept 10457 pg/mL (0-450); Osmolality Calculated 287 mOsm/kg (285-295); Potassium 3.9 mmol/L (3.5-5.1); Sodium 137 mmol/L (136-145); Total Bilirubin 0.9 mg/dL (0.15-1.2); Total Protein 5.8 g/dL (6.6-8.7)
--- NOTE | 2020-11-09 11:23 | PC.PHAR ---
pt states he takes care of his own medications-pt brought in a med list pt states he just wrote out and states if its not on his list then he doesnt take it-ext med history shows digoxin 125mcg 09/13/20 30d/s and valsartan 80mg bid filled on 08/24/20 90d/s pt states its not on his list then he isnt taking-ext med history shows lasix last filled on 09/12/20 90d.s for 40mg bid pt states he takes 40 mg qam-pt states he has an old rx of norco 5/325mg he takes prn ext med history shows last filled on 07/19/20 30d/s-pt states he takes imdur er 30mg qam-ext med history shows last filled on 09/12/20 90d/s for 60mg daily-pt states he is taking metoprolol tartrate 50mg bid -rx written in 10/31/20 30d/s for 75mg bid-notes are made in the pharmacy comments
--- NOTE | 2020-11-09 11:25 | ECG_ITS ---
[facility] Test Date: 2020-11-09 Pat Name: Stanislav Wu Department: Room: Gender: Male Outpatient Surgery Rn: : 1940 Requested By: Juma Rouse Order Number: [id number] Patrica MD: Florence Suarez M.D. Measurements Intervals [place] Rate: 102 P: [place]: QRS: -69 QRSD: 113 T: 91 QT: 338 QTc: 441 Interpretive Statements ATRIAL FIBRILLATION WITH RAPID VENTRICULAR RESPONSE LEFT ANTERIOR FASCICULAR BLOCK [QRS AXIS <= -45, QR IN I, RS IN II] ANTEROLATERAL MYOCARDIAL INFARCTION , OF INDETERMINATE AGE [40+ ms Q WAVE IN I/aVL/V3-V6] Compared to ECG 11/09/2020 09:30:29 No significant changes Electronically Signed On 11-09-2020 19:06:10 CDT by Florence Suarez M.D. [email or web address].[employer]/store/OV/[id number]
[2020-11-09] MEDS: FUROsemide 10 mg/mL SDV 4mL 40 MG IVP (11:28)
[2020-11-09 11:52] LABS: SARS Covid-2 Antigen Negative (Negative)
[2020-11-09 12:32] LABS: Troponin 5 2HR 43.36 ng/L (0-15)
[2020-11-09 12:36] LABS: Troponin 5 2HR Delta -0.64 ABS# (0-10)
--- NOTE | 2020-11-09 13:46 | P.HP_ITS ---
Providers/Chief Complaint Primary Care Provider: Raymond Reddy MD Chief Complaint: BLE SWELLING History of Present Illness Stanislav Wu is a 80 year old male with known S- CHF, , Afib, mitral valve regurgitation, atherosclerotic heart disease, dyslipidemia, eliquis bid chronic for afib and life vest in place came with CC of worsening shortness of breath. Patient is stating that for last few weeks he has been experiencing more shor tness of breath on minimal activities and lately he has been noticing at rest, endorsing orthopnea and PND. No chest pain, fever productive cough. No diarrhea. He has been taking his medications on regular basis. [facility] [place] no discharge noticed in the last few months. He follows up with Dr. Sherman. He has history of systolic congestive heart failure reduced action fraction EF 25%. Today he decided to come to the hospital because he was feeling very short of breath. Diagnostics in the ER revealed congestive heart failure exacerbation he was requiring 2 L of oxygen. Usually he uses CPAP at night. No ischemic or infarct changes on EKG, electrolytes are normal no MYRON. Because of acute hypoxic respiratory failure decision was made to observe him overnight diuresis and get home O2 evaluation. he is endorsing losing 30 pounds in last few weeks. Review of Systems Const: Denies: chills Eyes: Denies: change in vision ENMT: Denies: throat pain Card: Reports: edema, swelling of feet/ankles, dyspnea on exertion and or thopnea Resp: Reports: dyspnea GI: Denies: abdominal pain : Denies: flank pain Musc: Denies: neck pain Skin/Breast: Denies: rash Neuro: Denies: headache(s) Psych: Reports: anxiety Endo: Reports: polyuria [place]/Lymph: Denies: easy bruising All/Imm: Denies: urticaria Medications/Allergies Home Medications Medication Instructions Recorded Confirmed Last Taken Type polyethylene glycol 3350 [Miralax] 17 gm PO BEDTIME 02/29/20 11/09/20 11/08/20 History ascorbic acid (vitamin C) 500 mg 500 mg PO BID@03/08/20 11/09/20 11/09/20 06:00 History tablet,extended release omega-3 fatty acids 1,000 mg 1,000 mg PO DAILY@03/08/20 11/09/20 11/09/20 History capsule brimonidine 1 drp OPHTHALMIC (EYE) BID@05/02/20 11/09/20 11/09/20 06:00 History latanoprost 1 drp OPHTHALMIC (EYE) QAM 05/02/20 11/09/20 11/09/20 History vitamin E 400 unit PO BID 05/02/20 11/09/20 09/08/20 History CPAP #1 ea 05/07/20 11/09/20 Unknown Rx atorvastatin 80 mg PO DAILY@1700 08/04/20 11/09/20 11/08/20 History clopidogrel 75 mg PO DAILY@0608/04/20 11/09/20 11/09/20 06:00 History ezetimibe 10 mg PO DAILY@0608/04/20 11/09/20 11/09/20 06:00 History hydrocodone-acetaminophen 1 tab PO Q8H PRN 08/04/20 11/09/20 09/08/20 History nitroglycerin 0.4 mg SUBLINGUAL Q5M PRN MDD 3 08/04/20 11/09/20 Unknown History tabs meloxicam 15 mg PO DAILY@06 09/08/20 11/09/20 11/09/20 History wheeled walker #1 ea 09/17/20 11/09/20 Unknown Rx furosemide 40 mg tablet 40 mg PO DAILY tab 09/20/20 11/09/20 11/09/20 06:00 History sacubitril 97 mg-valsartan 103 mg 1 tab PO BID #180 tab 10/01/20 11/09/20 11/09/20 06:00 Rx tablet fentanyl 50 mcg/hr transdermal 50 mcg TOPICAL Q72H 30 Days #10 ea 10/25/20 11/09/20 11/09/20 Rx patch metoclopramide HCl 5 mg tablet 5 mg PO BID #30 tab 11/05/20 11/09/20 11/09/20 06:00 Rx allopurinol 150 mg PO BID 11/09/20 11/09/20 11/09/20 06:00 History amlodipine 5 mg PO QAM 11/09/20 11/09/20 11/09/20 06:00 History apixaban [Eliquis] 5 mg PO BID 11/09/20 11/09/20 11/09/20 06:00 History isosorbide mononitrate 30 mg PO DAILY@0600 11/09/20 11/09/20 11/09/20 06:00 History metoprolol tartrate 50 mg PO Q12H 11/09/20 11/09/20 11/07/20 History pantoprazole 40 mg PO QAM 11/09/20 11/09/20 11/09/20 06:00 History potassium chloride 20 meq PO QAM 11/09/20 11/09/20 11/09/20 History Allergies Allergy/AdvReac Type Severity Reaction Status Date / Time No Known Allergies Allergy Verified 11/09/20 11:21 PFSH Acute PFSH: Medical History 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 LV systolic function is moderately reduced with EF of 35 to 40%. There is severe hypokinesis of anterior and apical peña. Diastolic function is indeterminate because of atrial fibrillation. There is mild to moderate mitral regurgitation. Mild aortic regurgitation is seen. Mild pulmonic regurgitation is present. RVSP is 45 to 50 mmHg consistent with moderate pulmonary hypertension. Compared to prior study from 06/30/2018, LV systolic function is now further decreased to 35 to 40%. Atrial fibrillation Benign essential hypertension with target blood pressure below 140/90 Cardiac arrest High risk for any kind of surgical intervention, because of history of cardiac arrest with general anesthesia Cardiac LV ejection fraction >40% Chronic kidney disease Congestive heart failure Dyslipidemia (high LDL; low HDL) Erectile dysfunction Essential (primary) hypertension GERD (gastroesophageal reflux disease) Gout Hiatal hernia History of prostate cancer Hx of angiography Ischemic cardiomyopathy History of 16 stents Mitral valve regurgitation Osteoarthritis VENU (stress urinary incontinence), male Surgical History History of appendectomy History of carpal tunnel release History of hemorrhoidectomy History of inguinal hernia repair History of left hip replacement History of left shoulder replacement History of prostatectomy S/P PTCA (percutaneous transluminal coronary angioplasty) Family History Brother CAD (coronary artery disease) Diabetes Heart disease Father CAD (coronary artery disease) Heart disease Sister CAD (coronary artery disease) Cancer Diabetes Heart disease Mother Diabetes Stroke Grandmother Diabetes Denies family history of Clotting disorder Dementia Chronic kidney disease (CKD) Suicide Anesthesia complication Bleeding disorder Lung disease Social History Smoking and tobacco status: former smoker Alcohol intake: never History of recent travel: No Vitals/I&O/Wt Last Vital Signs Temp 97.5 F L 11/09/20 11:23 Pulse 98 11/09/20 12:02 Resp 18 11/09/20 12:02 BP 123/87 11/09/20 12:02 Pulse Ox 98 11/09/20 12:02 Weight last 48 hrs Weight 73.028 kg Physical Exam Narrative: EXAM NARRATIVE: Patient was in semi-[place] position saturating well on 2 L nasal cannula Very pleasant cooperative male appears stated age Congestive heart failure clinical exam findings positive with bilateral lower extremity edema however lungs are clear to auscultation No active rhonchi wheezing or crackles EOMI, PERRLA No neurological deficits Abdomen soft No joint swelling no signs of cellulitis Data : 11/09/20 09:23 11/09/20 09:23 A&P Assessment and plan (1) Acute exacerbation of CHF (congestive heart failure): Status: Acute Additional A&P Information Acute on chronic reduced ejection fraction heart failure exacerbation This seems gradual decline in ejection fraction I do not see any signs of ischemia or infarction on EKG, patient is not complaining of chest pain Patient is endorsing losing 30 pounds in last few months but shortness of breath has been getting worse he does have right-sided heart failure prominent features lung sounds are clear I would diurese him with Bumex 2 mg IV for next 24 hours and reevaluate him in the morning Home O2 evaluation before discharge Currently saturating well on 2 L nasal cannula We will request D-dimer to rule out PE I would continue his heart failure to section fraction evidence-based medicine including Entresto, continue LifeVest, he will need another echo in next few months to reevaluate if ejection fraction has improved Cardiac diet Low-sodium diet Full code DVT prophylaxis not needed currently he is on Eliquis 5 mg twice a day for history of A. fib, no acute exacerbation rate seems to be less than 110 Attestations Medical Necessity Statement*: Anticipating stay in the hospital to be less than 2 midnights Time Spent in Patient Care: Greater than 35 minutes Coding Level of Care Code Acute Chain [place]yer for Margaret Fwd Diagnoses Acute exacerbation of CHF (congestive heart failure) I50.9
--- NOTE | 2020-11-09 14:02 | PC.NURSE ---
Total output at this time 2200ml.
[2020-11-09 14:22] LABS: Procalcitonin 0.07 ng/mL (0-0.5)
--- NOTE | 2020-11-09 15:25 | ECG_ITS ---
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 Measurements Intervals [place] Rate: 100 P: [place]: QRS: -62 QRSD: 102 T: 92 QT: 386 QTc: 500 Interpretive Statements ATRIAL FIBRILLATION WITH RAPID VENTRICULAR RESPONSE LEFT ANTERIOR FASCICULAR BLOCK [QRS AXIS <= -45, QR IN I, RS IN II] ANTEROLATERAL MYOCARDIAL INFARCTION , OF INDETERMINATE AGE [40+ ms Q WAVE IN I/aVL/V3-V6] Compared to ECG 09/08/2020 17:42:23 Left anterior fascicular block now present Aberrant conduction of supraventricular beat(s) no longer present Ventricular premature complex(es) no longer present Myocardial infarct finding still present Electronically Signed On 11-09-2020 19:14:43 CDT by Florence Suarez M.D. [id number]
[2020-11-09 15:56] LABS: Troponin 5 6HR 39.06 ng/L (0-15); Troponin 5 6HR Delta -4.94 ng/L (0-12)
[2020-11-09] MEDS: apixaban 5 mg Tablet PO (19:30)
[2020-11-09] MEDS: allopurinol 300 mg Tablet 150 MG PO (19:30)
[2020-11-09] MEDS: metoprolol tartrate 50 mg Tablet PO (19:30)
--- NOTE | 2020-11-09 19:44 | PC.NURSE ---
admitted in to room 112-2 from er,via w/c.report received.pt is alert and oriented x 4.denies pain.no sob noted.afib at controlled rate on monitor.oriented to room environment.instructed to notify staff for any sob,cp,or for any concerns at all.pt verb understanding of instructions
[2020-11-09] MEDS: polyethylene glycol 3350 Pkt 17 gm PO (22:20)
--- NOTE | 2020-11-09 22:23 | PC.NURSE ---
Family brought in patient's Entresto from home and is available for the patient's use. Pharmacy has placed a barcode for use when approved.
[2020-11-10] VITALS (8 sets, daily range): BP systolic 99–136; BP diastolic 69–94; PULSE 92–128; RESP 14–21; TEMP 36.8–37; O2SAT 92–98
[2020-11-10] MEDS: isosorbide mononitrate ER 60 mg Tablet 30 MG PO (04:18)
[2020-11-10] MEDS: potassium chloride ER 20 mEq Tablet PO (04:19)
[2020-11-10] MEDS: amlodipine 5 mg Tablet PO (04:19)
[2020-11-10] MEDS: metoprolol tartrate 50 mg Tablet PO ×2 (04:19→12:26)
[2020-11-10] MEDS: clopidogrel 75 mg Tablet PO (04:19)
[2020-11-10] MEDS: pantoprazole DR 40 mg Tablet PO (04:20)
[2020-11-10 04:28] LABS: Basophils # 0.1 10^3/uL (0.0-0.1); Basophils % 0.8 %; Eosinophils # 0.2 10^3/uL (0.0-0.8); Eosinophils % 3.2 %; Hematocrit 41.2 % (42.0-52.0); Hemoglobin 13.5 g/dL (11.7-16.6); Lymphocytes # 1.4 10^3/uL (0.8-4.8); Lymphocytes % 19.3 %; Mean Corpuscular HGB Conc 32.8 g/dL (30.0-36.0); Mean Corpuscular Volume 91.6 fl (80-94); Mean Platelet Volume 10.7 fL (7.4-10.4); Monocytes # 0.6 10^3/uL (0.2-0.9); Monocytes % 7.9 %; Neutrophils % 68.5 %; Nucleated Red Blood Cells % 0 %; Platelet Count 180 10^3/cmm (130-400); Red Cell Distribution Width 13.7 % (12.1-15.1); White Blood Count 7.5 10^3/uL (4.0-10.0)
[2020-11-10 05:03] LABS: Anion Gap 11.5 (5-19); Blood Urea Nitrogen 13 mg/dL (8-23); Calcium 8.7 mg/dL (8.5-10.5); Carbon Dioxide 26 mmol/L (22-29); Chloride 104 mmol/L (98-107); Glucose 102 mg/dL (65-115); Osmolality Calculated 286 mOsm/kg (285-295); Potassium 3.5 mmol/L (3.5-5.1); Sodium 138 mmol/L (136-145)
--- NOTE | 2020-11-10 06:40 | PC.NURSE ---
Shift Note Frequent safety and comfort rounds continue. Orders and/or nursing care completed as indicated. Patient monitored for response to intervention and treatment(s). Education provided includes Entresto. Patient verbalized complete understanding. Patient denies pain or needs this morning. AM medications given early at patient request. Patient stated, I normally take my medications when I wake up around 4 or 5 in the morning. Patient reports improved breathing status. No distress observed. Will continue to monitor.
[2020-11-10] MEDS: bumetanide 0.25 mg/mL SDV 4 mL 2 MG IVP (08:38)
[2020-11-10] MEDS: allopurinol 300 mg Tablet 150 MG PO ×2 (08:39→18:26)
[2020-11-10] MEDS: apixaban 5 mg Tablet PO ×2 (08:39→18:26)
[2020-11-10] MEDS: potassium chloride oral liq 20 mEq/15 mL UDC 40 MEQ PO (09:50)
[2020-11-10] MEDS: SACUBITRIL VALSARTAN 1 EACH PO ×2 (11:12→18:27)
--- NOTE | 2020-11-10 13:23 | P.PN_ITS ---
Subjective Subjective: Interval history: Patient seen and examined this morning. Patient's heart rate has been 1 30-1 40 and few instances of above 150 overnight. Patient sitting up on edge of bed with tray of food. He states he does not like the food very much. Patient states he feels a lot better compared to yesterday. Yesterday he could not breathe at all but today he is able to breathe and he is off the nasal cannula at this point. He states he urinated 4 bottles since yesterday. He says his legs are not swollen but his left ankle seems to be more swollen compared to the right. He has never used compression stockings before from what he remembers. He states he falls all the time at home and uses a cane to walk also has a walker. When asked how many times he falls over and was the last time he fell he states he falls several times a day. He states he does not feel he is ready to go home and he has been to the hospital quite a few times now with shortness of breath at this time he wants things straightened out. He describes feeling weird and nauseated today and not like his normal self. Dr. Sherman is his health and wellness advisor and Dr. Reddy is his primary care doctor. Vitals/I&O/Wt Last Vital Signs Temp 98.5 F 11/10/20 12:00 Pulse 104 H 11/10/20 12:00 Resp 19 H 11/10/20 12:00 BP 112/90 11/10/20 12:00 Pulse Ox 98 11/10/20 12:00 11/09/20 11/10/20 11/10/20 22:59 06:59 14:59 Intake Total 840 / 840 Output Total 250 / 250 300 / 550 1150 / 1150 Balance -250 / -250 -300 / -550 -310 / -310 Weight last 48 hrs Weight 68.492 kg Weight 73.028 kg Physical Exam Narrative: EXAM NARRATIVE: General: Alert oriented x3, patient seen sitting at the edge of bed with tray of food in front of him. Off nasal cannula at this point. Heart rate at bedside 130-1 50-1 70. Patient asymptomatic. HEENT: Normocephalic, atraumatic, EOMI, breathing room air Cardio: Irregularly irregular, normal S1-S2, no murmurs rubs gallops, no JVD Respiratory: Good bilateral air entry, no wheezes no rhonchi appreciated GI: Abdomen soft, nontender, Behavior: Appropriate and cooperative, talkative Extremities: 1+ pedal edema up to ankles. Rest of lower extremities no edema today. Left ankle more edematous compared to right. Patient able to move both feet with no restrictions. Data : 11/10/20 04:15 11/10/20 04:15 A&P Assessment and plan (1) Acute exacerbation of CHF (congestive heart failure): Status: Acute (2) Atrial fibrillation with RVR: Status: Acute (3) Mediastinal adenopathy: Status: Acute Additional A&P Information Patient presented to ER on 11/09/2020 with heart failure exacerbation. He was placed on Bumex 2 mg IV daily and has urine output of 1700 mL since yesterday. Patient appears well diuresed since yesterday. I will switch his Bumex 2 mg to Lasix 40 mg oral twice daily today. Patient will continue to take Entresto. Patient was able to bring it from home and had a dose this morning as well. I will order compression stockings for pedal edema. Due to patient's history of daily falls will discuss Eliquis use with cardiology. Continue LifeVest. Patient has continued to be in atrial fibrillation with RVR. On chart review it seems at one point he was on digoxin and his home medication with metoprolol 75 mg twice daily. Patient was receiving metoprolol 50 mg daily. I will doubled to 100 mg twice daily today. If still remains uncontrolled will consider adding digoxin. We will continue to monitor patient on telemetry and adjust medications accordingly. We will place consult for cardiology. Discussed case with Dr. Sherman. Mediastinal adenopathy: On CTA from 09/04/2020 new mild central mediastinal adenopathy was reported. precarinall node measuring 2.2 cm and a subcarinal node measuring 2 cm. These are new from previous study. Patient also reports new 30 pound weight loss in the last few months. That was unintentional. Will refer to outpatient pulmonology for follow-up. Fluids: Not indicated Electrolytes: Patient receive potassium 60 mEq today in total. He is to continue 20 mEq daily as per his home medication. Nutrition: Low-sodium cardiac diet Activity: Uses a walker to ambulate. I will place a physical therapy consult for him today. Attestations Medical Necessity Statement*: Uncontrolled atrial fibrillation. Have made medication dose adjustments today and consulted cardiology. Possible discharge in next 24 to 48 hours. Coding Level of Care Code Acute Design Inserter for Margaret Dinero Diagnoses Acute exacerbation of CHF (congestive heart failure) I50.9 Atrial fibrillation with RVR I48.91 Mediastinal adenopathy R59.0
--- NOTE | 2020-11-10 13:55 | P.CONIM_ITS ---
Providers/Reason For Consult Consulting Physician/Specialty*: FLAKITA Sherman MD/cardiology Reason for Consult*: Patient with history of coronary artery disease, chronic atrial fibrillation, cardiomyopathy, presenting with increasing shortness of breath, atrial fibrillation with rapid ventricular rate Attending Physician: Chelsea Loyola MD Primary Care Provider: Raymond Reddy MD History of Present Illness History of Present Illness Stanislav Wu is a 80 year old male with a history of coronary artery disease, status post multiple PCI's and myocardial infarctions, is known to have an LV ejection fraction of around 25% by cardiac catheterization in August of this year. He also is known to have chronic atrial fibrillation. His compliance to medication is questionable. According to the patient, for the last few days, he been experiencing increasing shortness of breath. He was finding it difficult even to walk across the room. Denies any chest pain, palpitation, dizziness or syncopal episode. He has some episodes of nausea and stomach discomfort. No fever or chills. No cough. Following his last hospital discharge, he did okay for couple of weeks. 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 He was finding it difficult to lie flat in his bed for the last week or so. Also has been noticing swelling of the lower extremities. The last cardiac catheterization on 09/09/2020 revealed a patent stented segments in the LAD, intermedius and circumflex arteries. His LV ejection fraction was 25%. Based on the angiogram findings, it was opted to treat him medically. Currently he has a LifeVest. He is on maximum dose of Entresto. Review of Systems Narrative: CONSTITUTIONAL: No fever or chills. EYES: No blurring of vision or other visual disturbances lately. ENT: No hoarseness of voice, auditory disturbances or sore throat. CARDIOVASCULAR: As mentioned above. RESPIRATORY: Shortness of breath/orthopnea as mentioned above GASTROINTESTINAL: No hematemesis or melena. GENITOURINARY: No dysuria or hematuria. INTEGUMENTARY: No skin rashes or history of skin cancer. NEURO: No transient ischemic attacks or amaurosis. PSYCHIATRIC: No history of psychosis or major depression. HEMATOLOGIC: No bleeding disorders or significant anemia. ENDOCRINE: No history of polyuria or polydipsia. MUSCULOSKELETAL: Lower extremity edema. ALLERGY/IMMUNOLOGY: As mentioned above. Meds/Allergies Home Medications and Allergies Home Medications Medication Instructions Recorded Confirmed Last Taken Type polyethylene glycol 3350 [Miralax] 17 gm PO BEDTIME 02/29/20 11/09/20 11/08/20 History ascorbic acid (vitamin C) 500 mg 500 mg PO BID@03/08/20 11/09/20 11/09/20 06:00 History tablet,extended release omega-3 fatty acids 1,000 mg 1,000 mg PO DAILY@03/08/20 11/09/20 11/09/20 History capsule brimonidine 1 drp OPHTHALMIC (EYE) BID@05/02/20 11/09/20 11/09/20 06:00 History latanoprost 1 drp OPHTHALMIC (EYE) QA 05/02/20 11/09/20 11/09/20 History vitamin E 400 unit PO BID 05/02/20 11/09/20 09/08/20 History CPAP #1 ea 05/07/20 11/09/20 Unknown Rx atorvastatin 80 mg PO DAILY@1700 08/04/20 11/09/20 11/08/20 History clopidogrel 75 mg PO DAILY@0600 08/04/20 11/09/20 11/09/20 06:00 History ezetimibe 10 mg PO DAILY@0600 08/04/20 11/09/20 11/09/20 06:00 History hydrocodone-acetaminophen 1 tab PO Q8H PRN 08/04/20 11/09/20 09/08/20 History nitroglycerin 0.4 mg SUBLINGUAL Q5M PRN MDD 3 08/04/20 11/09/20 Unknown History tabs meloxicam 15 mg PO DAILY@09/08/20 11/09/20 11/09/20 History wheeled walker #1 ea 09/17/20 11/09/20 Unknown Rx furosemide 40 mg tablet 40 mg PO DAILY tab 09/20/20 11/09/20 11/09/20 06:00 History sacubitril 97 mg-valsartan 103 mg 1 tab PO BID #180 tab 10/01/20 11/09/20 11/09/20 06:00 Rx tablet fentanyl 50 mcg/hr transdermal 50 mcg TOPICAL Q72H 30 Days #10 ea 09/02/21 09/17/21 09/17/21 Rx patch metoclopramide HCl 5 mg tablet 5 mg PO BID #30 tab 11/05/20 11/09/20 11/09/20 06:00 Rx allopurinol 150 mg PO BID 11/09/20 11/09/20 11/09/20 06:00 History amlodipine 5 mg PO QAM 11/09/20 11/09/20 11/09/20 06:00 History apixaban [Eliquis] 5 mg PO BID 11/09/20 11/09/20 11/09/20 06:00 History isosorbide mononitrate 30 mg PO DAILY@0600 11/09/20 11/09/20 11/09/20 06:00 History metoprolol tartrate 50 mg PO Q12H 11/09/20 11/09/20 11/07/20 History pantoprazole 40 mg PO QAM 11/09/20 11/09/20 11/09/20 06:00 History potassium chloride 20 meq PO QAM 11/09/20 11/09/20 11/09/20 History Allergies Allergy/AdvReac Type Severity Reaction Status Date / Time No Known Allergies Allergy Verified 11/09/20 11:21 Current Medications Current Medications Generic Name Dose Route Start Last Admin Trade Name Freq PRN Reason Stop Dose Admin Allopurinol 150 mg 11/09/20 18:00 11/10/20 08:39 Allopurinol 300 Mg Tablet PO 150 mg BID TAYLOR Administration Amlodipine Besylate 5 mg 11/10/20 06:00 11/10/20 04:19 Amlodipine 5 Mg Tablet PO 5 mg QAM TAYLOR Administration Apixaban 5 mg 11/09/20 18:00 11/10/20 08:39 Apixaban 5 Mg Tablet PO 5 mg BID TAYLOR Administration Clopidogrel Bisulfate 75 mg 11/10/20 06:00 11/10/20 04:19 Clopidogrel 75 Mg Tablet PO 75 mg DAILY@0600 TAYLOR Administration Isosorbide Mononitrate 30 mg 11/10/20 06:00 11/10/20 04:18 Isosorbide Mononitrate Er 60 Mg Tablet PO 30 mg DAILY@0600 TAYLOR Administration Non-Formulary Medication 1 tab 11/10/20 10:15 11/10/20 11:12 Sacubitril-Valsartan [Entresto] PO 1 tab BID TAYLOR Administration Pantoprazole Sodium 40 mg 11/10/20 06:00 11/10/20 04:[address] 40 Mg Tablet PO 40 mg QAM TAYLOR Administration Polyethylene Glycol 17 gm 11/09/20 21:42 11/09/20 22:20 Polyethylene Glycol 3350 Pkt 17 Gm PO 17 gm BEDTIME TAYLOR Administration Potassium Chloride 20 meq 11/10/20 06:00 11/10/20 04:19 Potassium Chloride Er 20 Meq Tablet PO 20 meq QAM TAYLOR Administration PFSH Acute PFSH: Medical History 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 LV systolic function is moderately reduced with EF of 35 to 40%. There is severe hypokinesis of anterior and apical peña. Diastolic function is indeterminate because of atrial fibrillation. There is mild to moderate mitral regurgitation. Mild aortic regurgitation is seen. Mild pulmonic regurgitation is present. RVSP is 45 to 50 mmHg consistent with moderate pulmonary hypertension. Compared to prior study from 06/30/2018, LV systolic function is now further decreased to 35 to 40%. Atrial fibrillation Benign essential hypertension with target blood pressure below 140/90 Cardiac arrest High risk for any kind of surgical intervention, because of history of cardiac arrest with general anesthesia Cardiac LV ejection fraction >40% Chronic kidney disease Congestive heart failure Dyslipidemia (high LDL; low HDL) Erectile dysfunction Essential (primary) hypertension GERD (gastroesophageal reflux disease) Gout Hiatal hernia History of prostate cancer Hx of angiography Ischemic cardiomyopathy History of 16 stents Mitral valve regurgitation Osteoarthritis VENU (stress urinary incontinence), male Surgical History History of appendectomy History of carpal tunnel release History of hemorrhoidectomy History of inguinal hernia repair History of left hip replacement History of left shoulder replacement History of prostatectomy S/P PTCA (percutaneous transluminal coronary angioplasty) Family History Brother CAD (coronary artery disease) Diabetes Heart disease Father CAD (coronary artery disease) Heart disease Sister CAD (coronary artery disease) Cancer Diabetes Heart disease Mother Diabetes Stroke Grandmother Diabetes Denies family history of Clotting disorder Dementia Chronic kidney disease (CKD) Suicide Anesthesia complication Bleeding disorder Lung disease Social History Smoking and tobacco status: former smoker Alcohol intake: never History of recent travel: No Vitals/I&O/Wt Last Vital Signs Temp 98.5 F 11/10/20 12:00 Pulse 104 H 11/10/20 12:00 Resp 19 H 11/10/20 12:00 BP 112/90 11/10/20 12:00 Pulse Ox 98 11/10/20 12:00 11/09/20 11/10/20 11/10/20 22:59 06:59 14:59 Intake Total 840 / 840 Output Total 250 / 250 300 / 550 1150 / 1150 Balance -250 / -250 -300 / -550 -310 / -310 Weight last 48 hrs Weight 151 lb Weight 161 lb Physical Exam Narrative: EXAM NARRATIVE: GENERAL: The patient is alert and oriented times three. Slightly tachypneic. HEENT: No significant pallor, icterus or lymphadenopathy.Oral cavity: There are no mucous membrane lesions. NECK: Trachea appears to be central. No masses noted. No JVD or thyromegaly appreciated. RESPIRATORY: Chest is symmetrical. No intercostals muscle retraction or any accessory muscle activation. There is no chest wall tenderness. Breath sounds are heard bilaterally. No rales or rhonchi heard. No evidence of any consolidation. BREASTS: Deferred. HEART: First heart sound is variable. Second heart rate is normal. No S3. Short systolic murmur in the left sternal border. Grade 3 systolic murmur in the mitral area. No diastolic murmurs. No pericardial rub ABDOMEN: No vessel pulsations or distention. No tenderness. No organomegaly appreciated. Bowel sounds are normally heard. : Deferred. RECTAL: Deferred. LYMPHATIC: No lymphadenopathy noted in the neck or groin. EXTREMITIES: 1-2+ edema both lower extremities. No cyanosis. MUSCULOSKELETAL: No acute joint deformities or swelling SKIN: There are no significant rashes or ecchymosis NEUROPSYCHIATRIC: The patient is alert and oriented x3. Appears to be in a good mood. No tremors or rigidity noted. Data Labs: Other Labs: Current Medications Laboratory Last Values WBC 7.5 10^3/uL (4.0- 10.0) 11/10/20 04:15 RBC 4.50 10^6/uL (4.1 -5.3) 11/10/20 04:15 Hgb 13.5 g/dL (11.7-1 6.6) 11/10/20 04:15 Hct 41.2 % (42.0-52.0 ) L 11/10/20 04:15 MCV 91.6 fl (80-94) 11/10/20 04:15 MCH 30.0 pg (28.0-34. 0) 11/10/20 04:15 MCHC 32.8 g/dL (30.0-3 6.0) 11/10/20 04:15 RDW 13.7 % (12.1-15.1 ) 11/10/20 04:15 Plt Count 180 10^3/cmm (130 -400) 11/10/20 04:15 MPV 10.7 fL (7.4-10.4 ) H 11/10/20 04:15 Neut % (Auto) 68.5 % 11/10/20 04:15 Lymph % (Auto) 19.3 % 11/10/20 04:15 [place] % (Auto) 7.9 % 11/10/20 04:15 Eos % (Auto) 3.2 % 11/10/20 04:15 Baso % (Auto) 0.8 % 11/10/20 04:15 Neut # (Auto) 5.10 10^3/uL (1.8 -7.7) 11/10/20 04:15 Lymph # (Auto) 1.4 10^3/uL (0.8- 4.8) 11/10/20 04:15 [place] # (Auto) 0.6 10^3/uL (0.2- 0.9) 11/10/20 04:15 Eos # (Auto) 0.2 10^3/uL (0.0- 0.8) 11/10/20 04:15 Baso # (Auto) 0.1 10^3/uL (0.0- 0.1) 11/10/20 04:15 Nucleated RBC % (a uto) 0 % 11/10/20 04:15 Nucleated RBCs # 0.0 /100WBC 11/10/20 04:15 Sodium 138 mmol/L (136-1 45) 11/10/20 04:15 Potassium 3.5 mmol/L (3.5-5 .1) 11/10/20 04:15 Chloride 104 mmol/L (98-10 7) 11/10/20 04:15 Carbon Dioxide 26 mmol/L (22-29) 11/10/20 04:15 Anion Gap 11.5 (5-19) 11/10/20 04:15 BUN 13 mg/dL (8-23) 11/10/20 04:15 Creatinine 1.0 mg/dL (0.7-1. 2) 11/10/20 04:15 GFR Calculation Not Reportable 11/10/20 04:15 Glucose 102 mg/dL (65-115 ) 11/10/20 04:15 Calculated Osmolal ity 286 mOsm/kg (285- 295) 11/10/20 04:15 Calcium 8.7 mg/dL (8.5-10 .5) 11/10/20 04:15 Total Bilirubin 0.9 mg/dL (0.15-1 .2) 11/09/20 09:23 AST 19 U/L (0-40) 11/09/20 09:23 ALT 19 U/L (0-41) 11/09/20 09:23 Alkaline Phosphata se 99 IU/L (40-130) 11/09/20 09:23 Troponin T Baselin e 44 ng/L (0-15) H 11/09/20 09:23 Troponin T 120 Min [place] 43.36 ng/L (0-15) H 11/09/20 11:40 Delta Troponin T -0.64 ABS# (0-10) L 11/09/20 11:40 Troponin T Hi Sens 6Hr 39.06 ng/L (0-15) H 11/09/20 15:20 Troponin T Hi Sens 6Hr Delta -4.94 ng/L (0-12) L 11/09/20 15:20 NT-Pro-B Natriuret Pep 85277 pg/mL (0-45 0) H 11/09/20 09:23 Total Protein 5.8 g/dL (6.6-8.7 ) L 11/09/20 09:23 Albumin 3.4 g/dL (3.5-5.2 ) L 11/09/20 09:23 Globulin 2.4 g/dL (1.3-4.6 ) 11/09/20 09:23 Procalcitonin 0.07 ng/mL (0-0.5 ) 11/09/20 09:23 SARS-CoV-2 Ag (Rap id) Negative (Negati ve) 11/09/20 11:22 Imaging^: Echo: My impression: 09/09/2020 Multiple wall motion normalities with a diminished LV ejection fraction of 25-30 %. Moderately dilated left atrium. Mildly increased right atrial size. Thickened aortic valve. Mild mitral annular calcification. Thickened mitral valve. There is no pericardial effusion. There are no intracardiac masses. Compared to the study from 03/01/2020, there is worsening of the LV systolic function Cardiac catheterization on 09/09/2020: My impression: Patent stented segments of the proximal to mid LAD, proximal to mid circumflex artery, proximal intermediate and right coronary arteries. There was moderate in-stent stenosis in the RCA and in the intermedius artery. The LV cavity was found to be mildly dilated with an ejection fraction of around 25%. LVEDP was 13 mmHg. Myocardial perfusion imaging on 06/25/2020: My impression: 1. Moderate to large areas of persistent decreased tracer u ptake in the anterior, inferior, anteroseptal and anterolateral wall regions, suggestive of myocardial scarring in the distribution of all the 3 coronary arteries. 2. Multiple wall motion of abnormalities as mentioned above. 3. Moderately dilated LV cavity, end-systolic volume of 146 mm 4. Diminished LV ejection fraction of 30%. 5. Slightly elevated transient ischemic dilatation ratio, may suggest endocardial ischemia. The positive predictive value is low. Clinical correlation is recommended A&P Assessment and plan (1) Acute on chronic systolic heart failure, NYHA class 4: Patient may be carefully treated with IV diuretics. I also may add spironolactone 25 mg p.o. daily. He also may be started on Jardiance 10 mg p.o. daily, because of the advanced heart failure. May continue on the Entresto. Status: Acute (2) Atherosclerotic heart disease of [place] coronary artery without angina pectoris: Since he was found to have no revascularizable lesions, may continue on the current medications. The Plavix may be continued. Status: Acute Qualifiers: [place] vs. transplanted heart: [place] heart Qualified Code(s): I25.10 - Atherosclerotic heart disease of [place] coronary artery without angina pectoris (3) Ischemic cardiomyopathy: And is on a LifeVest. We will repeat the echocardiogram to his end of November to reevaluate the LV ejection fraction and then decide on the need for prophylactic ICD. Status: Acute (4) Atrial fibrillation with RVR: Patient was given 100 mg of metoprolol today. This may be continued. If the heart rate is not gets under control in the next 2 for 24 to 48 hours, we may add digoxin. Based on his clinical progress, further recommendations will be made. Thank you for the opportunity to evaluate this patient and make these recommendations Status: Acute Additional A&P Information We will continue to optimize his medical treatment. His other problems are as outlined before Consult Attestations Medical Necessity Statement: Patient may require couple more days of stay in the hospital to optimize his medications. He also need to evaluate him for home oxygen. Coding Level of Care Code Acute Airline Operations Agent for Margaret Dinero History Detailed Exam Detailed Medical Decision Making Moderate Complexity Diagnoses Acute on chronic systolic heart failure, NYHA class 4 I50.23 Atherosclerotic heart disease of [place] coronary artery without angina pectoris I25.10 [place] vs. transplanted heart: [place] heart Ischemic cardiomyopathy I25.5 Atrial fibrillation with RVR I48.91
[2020-11-10] MEDS: spironolactone 25 mg Tablet PO (15:29)
[2020-11-10] MEDS: FUROsemide 40 mg Tablet PO (15:37)
[2020-11-10] MEDS: ondansetron 2 mg/ML SDV 2 mL 4 MG IVP (16:44)
--- NOTE | 2020-11-10 16:48 | ECG_ITS ---
[facility] Test Date: 2020-11-10 Pat Name: Stanislav Wu Department: Room: 112 Gender: Male Social Media Campaign Manager: : 1940 Requested By: Chelsea Loyola Order Number: [id number] Patrica MD: Red Sherman M.D. Measurements Intervals [place] Rate: 112 P: NE: QRS: -48 QRSD: 100 T: 119 QT: 349 QTc: 478 Interpretive Statements ATRIAL FIBRILLATION WITH RAPID VENTRICULAR RESPONSE ANTERIOR MYOCARDIAL INFARCTION , OF INDETERMINATE AGE [40+ ms Q WAVE AND/OR ST/T ABNORMALITY IN V3/V4] INFERIOR MYOCARDIAL INFARCTION , PROBABLY OLD [40+ ms Q WAVE AND/OR ST/T ABNORMALITY IN II/aVF] Compared to ECG 11/09/2020 15:28:18 Left anterior fascicular block no longer present Myocardial infarct finding still present Electronically Signed On 11-11-2020 18:01:32 CDT by Red Sherman M.D. [id number]
[2020-11-10 17:28] LABS: D Dimer 0.82 ug/mIFEU (0-0.59)
[2020-11-10 17:34] LABS: Troponin T (5th) Once 46 ng/L (0-15)
[2020-11-10] MEDS: atorvastatin 40 mg Tablet 80 MG PO (18:25)
[2020-11-10] MEDS: digoxin 250 mcg/ml INJ 2 mL IVP ×2 (18:26→22:58)
--- NOTE | 2020-11-10 19:39 | PC.NURSE ---
Received report from RADHA Gil. Patient resting in bed with eyes closed. Patient is hard of hearing, easily responds to touch. Patient denies pain or needs presently. No distress observed.
--- NOTE | 2020-11-10 20:06 | PC.NURSE ---
Shift Note Frequent safety and comfort rounds continue. Orders and/or nursing care completed as indicated. Patient monitored for response to intervention and treatment(s). Education provided includes new medication changes as prescribed for his chf, afib w/rvr and nausea. Patient and/or territory sales representative verbalizes understanding. Will continue to monitor.
--- NOTE | 2020-11-10 20:07 | PC.NURSE ---
spoke to dr henderson regarding pt's chosen pharmacies are close today Dr. Henderson ordered to start pt on Jardiance or farxega for this pt. Talked to pharmacist and our inpt pharmacy does not have these. Pt's pharmacies are close for this weekend. Informed Dr Henderson and Chelsea and they are both okay to start this medication upon pt's discharge.
[2020-11-10] MEDS: polyethylene glycol 3350 Pkt 17 gm PO (21:31)
[2020-11-10] MEDS: metoprolol tartrate 50 mg Tablet 100 MG PO (21:31)
[2020-11-11] VITALS (9 sets, daily range): BP systolic 109–133; BP diastolic 66–89; PULSE 68–104; RESP 12–23; TEMP 36.4–36.8; O2SAT 95–100
--- NOTE | 2020-11-11 | PC.NURSE ---
Compression stockings placed on patient.
[2020-11-11] MEDS: amlodipine 5 mg Tablet PO (04:59)
[2020-11-11] MEDS: pantoprazole DR 40 mg Tablet PO (04:59)
[2020-11-11] MEDS: isosorbide mononitrate ER 60 mg Tablet 30 MG PO (04:59)
[2020-11-11] MEDS: clopidogrel 75 mg Tablet PO (04:59)
[2020-11-11] MEDS: potassium chloride ER 20 mEq Tablet PO (04:59)
--- NOTE | 2020-11-11 05:17 | PC.NURSE ---
Shift Note Frequent safety and comfort rounds continue. Orders and/or nursing care completed as indicated. Patient monitored for response to intervention and treatment(s). Education provided includes metoprolol. Patient verbalized complete understanding. Patient had an uneventful evening and reports sleeping well. Heart rate controlled in the 90s throughout the night. Patient denies pain or needs presently. Patient up in room performing ADLs. No distress observed. Will continue to monitor.
[2020-11-11] MEDS: FUROsemide 40 mg Tablet PO ×2 (07:49→16:58)
[2020-11-11] MEDS: spironolactone 25 mg Tablet PO (08:04)
[2020-11-11] MEDS: allopurinol 300 mg Tablet 150 MG PO ×2 (08:04→17:00)
[2020-11-11] MEDS: metoprolol tartrate 50 mg Tablet 100 MG PO ×2 (08:04→20:02)
[2020-11-11] MEDS: apixaban 5 mg Tablet PO ×2 (08:04→17:00)
[2020-11-11] MEDS: SACUBITRIL VALSARTAN 1 EACH PO ×2 (08:05→17:00)
[2020-11-11] MEDS: digoxin 125 mcg Tablet PO (09:45)
--- NOTE | 2020-11-11 10:03 | PC.CHAP ---
Pastoral Care Encounter/Spiritual Assessment Type of Contact [] Declined robotics testing technician visit [] Patient/Family/Request visit [] Outpatient visit [] Follow-up visit [] Physician referral [] Code/Alert [x] Routine visit [] Staff referral [] Actively dying [] Patient sleeping [] Family support [] [] Out of room [] Palliative care [] [] Receiving care in room [] Pre-surgical visit [] Trauma [] Long length of stay [] ICU visit [] Other: Relational/Emotional Strength [x] Patient feels connected with others/family/visitors/staff [] Distress [] Loneliness/isolation [] Abandonment Spirituality of Patient [x] Person of Veronica [x] Attends Zoroastrian of their Veronica [x] Believes in Prayer [x] Reads Bible or Bahai materials [] There are Spiritual issues to be addressed Cereal Supervisor Interventions [x] Prayer [x] Active listening [x] Non-anxious presence [x] Spiritual/emotional support [] Crisis/trauma care [] Spiritual counseling [] Bereavement support [] Provided bereavement packet [] Provided Bible/devotional materials [] Provided toy/stuffed animal, coloring book to patient or family member [] Provided Communion [] Anointing/[place] [] Salvation [x] Completed spiritual assessment [] Other: Impact on Illness or Injury [] Angry [] Fearful [] Anxious [] Often cries [] Exhaustion [] Unable to work [] Unable to attend restoration [] Unable to walk/stand [] Unable to read [] Unable to drive [] Unable to eat/drink [] Unable to sleep [] Unable to be with family [] Patient intubated [] Other: Summary Cereal Supervisor prayed with Patient and gave a Daily Bread Time spent with patient 20 minutes.
--- NOTE | 2020-11-11 10:15 | P.PN_ITS ---
Subjective Subjective: Interval history: The patient is feeling okay with no chest pain or chest tightness. Still has some dyspnea on exertion. No orthopnea or PND. No fever or chills. Has been tolerating the medication so far well. Telemetry still shows atrial fibrillation with rapid rapid ventricular rate. Medications: Reviewed: Yes Medication Review Details: Current Medications Hydrocodone Bitart/Acetaminophen (Hydrocodone-Acetaminophen 5-325 Mg Tablet) 1 tab PO Q8H PRN PRN Reason: Pain Albuterol/Ipratropium (Ipratropium-Albuterol 3 Ml Neb) 3 ml INHALATION Q6H PRN PRN Reason: SHORTNESS OF BREATH Allopurinol (Allopurinol 300 Mg Tablet) 150 mg PO BID [facility] Last Admin: 11/11/20 08:04 Dose: 150 mg Documented by: Amlodipine Besylate (Amlodipine 5 Mg Tablet) 5 mg PO QAM [facility] Last Admin: 11/11/20 04:59 Dose: 5 mg Documented by: Apixaban (Apixaban 5 Mg Tablet) 5 mg PO BID [facility] Last Admin: 11/11/20 08:04 Dose: 5 mg Documented by: Atorvastatin Calcium (Atorvastatin 40 Mg Tablet) 80 mg PO DAILY@1700 [facility] Last Admin: 11/10/20 18:25 Dose: 80 mg Documented by: Clopidogrel Bisulfate (Clopidogrel 75 Mg Tablet) 75 mg PO DAILY@0600 [facility] Last Admin: 11/11/20 04:59 Dose: 75 mg Documented by: Digoxin (Digoxin 125 Mcg Tablet) 125 mcg PO DAILY [facility] Last Admin: 11/11/20 09:45 Dose: 125 mcg Documented by: Furosemide (Furosemide 40 Mg Tablet) 40 mg PO BID@08,16 [facility] Last Admin: 11/11/20 07:49 Dose: 40 mg Documented by: Isosorbide Mononitrate (Isosorbide Mononitrate Er 60 Mg Tablet) 30 mg PO DAILY@0600 [facility] Last Admin: 11/11/20 04:59 Dose: 30 mg Documented by: Metoprolol Tartrate (Metoprolol Tartrate 50 Mg Tablet) 100 mg PO BID@0900,2100 [facility] Last Admin: 11/11/20 08:04 Dose: 100 mg Documented by: Nitroglycerin (Nitroglycerin 0.4 Mg Sublingual Tablet) 0.4 mg SUBLINGUAL Q5M PRN PRN Reason: Chest Pain Non-Formulary Medication (Sacubitril-Valsartan [Entresto]) 1 tab PO BID [facility] Last Admin: 11/11/20 08:05 Dose: 1 tab Documented by: Non-Formulary Medication (Jardiance) 10 mg PO DAILY [facility] Last Admin: 11/11/20 08:05 Dose: Not Given Documented by: Ondansetron HCl (Ondansetron 2 Mg/Ml Sdv 2 Ml) 4 mg IVP Q6H PRN PRN Reason: NAUSEA AND VOMITING Last Admin: 11/10/20 16:44 Dose: 4 mg Documented by: Pantoprazole Sodium (Pantoprazole Dr 40 Mg Tablet) 40 mg PO QAM [facility] Last Admin: 11/11/20 04:59 Dose: 40 mg Documented by: Polyethylene Glycol (Polyethylene Glycol 3350 Pkt 17 Gm) 17 gm PO BEDTIME [facility] Last Admin: 11/10/20 21:31 Dose: 17 gm Documented by: Potassium Chloride (Potassium Chloride Er 20 Meq Tablet) 20 meq PO QAM [facility] Last Admin: 11/11/20 04:59 Dose: 20 meq Documented by: Spironolactone (Spironolactone 25 Mg Tablet) 25 mg PO DAILY [facility] Last Admin: 11/11/20 08:04 Dose: 25 mg Documented by: Vitals/I&O/Wt Last Vital Signs Temp 98.0 F 11/11/20 07:15 Pulse 80 11/11/20 09:45 Resp 15 11/11/20 07:15 BP 133/89 11/11/20 07:15 Pulse Ox 95 11/11/20 07:15 11/10/20 11/11/20 11/11/20 22:59 06:59 14:59 Intake Total 840 / 1680 Output Total 680 / 1830 625 / 2455 200 / 200 Balance 160 / -150 -625 / -775 -200 / -200 Weight last 48 hrs Weight 151 lb Physical Exam Narrative: EXAM NARRATIVE: GENERAL: The patient is alert and oriented times three. Slightly tachypneic. HEENT: No significant pallor, icterus or lymphadenopathy.Oral cavity: There are no mucous membrane lesions. NECK: Trachea appears to be central. No masses noted. No JVD or thyromegaly appreciated. RESPIRATORY: Chest is symmetrical. No intercostals muscle retraction or any accessory muscle activation. There is no chest wall tenderness. Breath sounds are heard bilaterally. No rales or rhonchi heard. No evidence of any consolidation. BREASTS: Deferred. HEART: First heart sound is variable. Second heart rate is normal. No S3. Short systolic murmur in the left sternal border. Grade 3 systolic murmur in the mitral area. No diastolic murmurs. No pericardial rub ABDOMEN: No vessel pulsations or distention. No tenderness. No organomegaly appreciated. Bowel sounds are normally heard. : Deferred. RECTAL: Deferred. LYMPHATIC: No lymphadenopathy noted in the neck or groin. EXTREMITIES: 1-2+ edema both lower extremities. No cyanosis. MUSCULOSKELETAL: No acute joint deformities or swelling SKIN: There are no significant rashes or ecchymosis NEUROPSYCHIATRIC: The patient is alert and oriented x3. Appears to be in a good mood. No tremors or rigidity noted. Data : 11/10/20 04:15 11/10/20 04:15 Other Labs: Laboratory Last Values WBC 7.5 10^3/uL (4.0-10.0) 11/10/20 04:15 RBC 4.50 10^6/uL (4.1-5.3) 11/10/20 04:15 Hgb 13.5 g/dL (11.7-16.6) 11/10/20 04:15 Hct 41.2 % (42.0-52.0) L 11/10/20 04:15 MCV 91.6 fl (80-94) 11/10/20 04:15 MCH 30.0 pg (28.0-34.0) 11/10/20 04:15 MCHC 32.8 g/dL (30.0-36.0) 11/10/20 04:15 RDW 13.7 % (12.1-15.1) 11/10/20 04:15 Plt Count 180 10^3/cmm (130-400) 11/10/20 04:15 MPV 10.7 fL (7.4-10.4) H 11/10/20 04:15 Neut % (Auto) 68.5 % 11/10/20 04:15 Lymph % (Auto) 19.3 % 11/10/20 04:15 [place] % (Auto) 7.9 % 11/10/20 04:15 Eos % (Auto) 3.2 % 11/10/20 04:15 Baso % (Auto) 0.8 % 11/10/20 04:15 Neut # (Auto) 5.10 10^3/uL (1.8-7.7) 11/10/20 04:15 Lymph # (Auto) 1.4 10^3/uL (0.8-4.8) 11/10/20 04:15 [place] # (Auto) 0.6 10^3/uL (0.2-0.9) 11/10/20 04:15 Eos # (Auto) 0.2 10^3/uL (0.0-0.8) 11/10/20 04:15 Baso # (Auto) 0.1 10^3/uL (0.0-0.1) 11/10/20 04:15 Nucleated RBC % (auto) 0 % 11/10/20 04:15 Nucleated RBCs # 0.0 /100WBC 11/10/20 04:15 D-Dimer 0.82 ug/mIFEU (0-0.59) H 11/10/20 16:57 Sodium 138 mmol/L (136-145) 11/10/20 04:15 Potassium 3.5 mmol/L (3.5-5.1) 11/10/20 04:15 Chloride 104 mmol/L (98-107) 11/10/20 04:15 Carbon Dioxide 26 mmol/L (22-29) 11/10/20 04:15 Anion Gap 11.5 (5-19) 11/10/20 04:15 BUN 13 mg/dL (8-23) 11/10/20 04:15 Creatinine 1.0 mg/dL (0.7-1.2) 11/10/20 04:15 GFR Calculation Not Reportable 11/10/20 04:15 Glucose 102 mg/dL (65-115) 11/10/20 04:15 Calculated Osmolality 286 mOsm/kg (285-295) 11/10/20 04:15 Calcium 8.7 mg/dL (8.5-10.5) 11/10/20 04:15 Total Bilirubin 0.9 mg/dL (0.15-1.2) 11/09/20 09:23 AST 19 U/L (0-40) 11/09/20 09:23 ALT 19 U/L (0-41) 11/09/20 09:23 Alkaline Phosphatase 99 IU/L (40-130) 11/09/20 09:23 Troponin T Gen 5 ng/L 46 ng/L (0-15) H 11/10/20 16:57 Troponin T Baseline 44 ng/L (0-15) H 11/09/20 09:23 Troponin T 120 Minute 43.36 ng/L (0-15) H 11/09/20 11:40 Delta Troponin T -0.64 ABS# (0-10) L 11/09/20 11:40 Troponin T Hi Sens 6Hr 39.06 ng/L (0-15) H 11/09/20 15:20 Troponin T Hi Sens 6Hr Delta -4.94 ng/L (0-12) L 11/09/20 15:20 NT-Pro-B Natriuret Pep 72891 pg/mL (0-450) H 11/09/20 09:23 Total Protein 5.8 g/dL (6.6-8.7) L 11/09/20 09:23 Albumin 3.4 g/dL (3.5-5.2) L 11/09/20 09:23 Globulin 2.4 g/dL (1.3-4.6) 11/09/20 09:23 Procalcitonin 0.07 ng/mL (0-0.5) 11/09/20 09:23 SARS-CoV-2 Ag (Rapid) Negative (Negative) 11/09/20 11:22 Other Imaging: My impression: Echo: My impression: 09/09/2020 Multiple wall motion normalities with a diminished LV ejection fraction of 25-30 %. Moderately dilated left atrium. Mildly increased right atrial size. Thickened aortic valve. Mild mitral annular calcification. Thickened mitral valve. There is no pericardial effusion. There are no intracardiac masses. Compared to the study from 03/01/2020, there is worsening of the LV systolic function Cardiac catheterization on 09/09/2020: My impression: Patent stented segments of the proximal to mid LAD, proximal to mid circumflex artery, proximal intermediate and right coronary arteries. There was moderate in-stent stenosis in the RCA and in the intermedius artery. The LV cavity was found to be mildly dilated with an ejection fraction of around 25%. LVEDP was 13 mmHg. Myocardial perfusion imaging on 06/25/2020: My impression: 1. Moderate to large areas of persistent decreased tracer uptake in the anterior, inferior, anteroseptal and anterolateral wall regions, suggestive of myocardial scarring in the distribution of all the 3 coronary arteries. 2. Multiple wall motion of abnormalities as mentioned above. 3. Moderately dilated LV cavity, end-systolic volume of 146 mm 4. Diminished LV ejection fraction of 30%. 5. Slightly elevated transient ischemic dilatation ratio, may suggest endocardial ischemia. The positive predictive value is low. Clinical correlation is recommended A&P Assessment and plan (1) Acute on chronic systolic heart failure, NYHA class 4: Patient may be carefully treated with IV diuretics. I also may add spironolactone 25 mg p.o. daily. He also may be started on Jardiance 10 mg p.o. daily, because of the advanced heart failure. May continue on the Entresto. Apparently the Jardiance is not available in the hospital formulary. He is tolerating the spironolactone so far well. Urine output seems to be appropria te. Status: Acute (2) Atherosclerotic heart disease of hoh coronary artery without angina pectoris: Since he was found to have no revascularizable lesions, may continue on the current medications. The Plavix may be continued. Status: Acute Qualifiers: [place] vs. transplanted heart: hoh heart Qualified Code(s): I25.10 - Atherosclerotic heart disease of hoh coronary artery without angina pectoris (3) Ischemic cardiomyopathy: And is on a LifeVest. We will repeat the echocardiogram towards the end of November to reevaluate the LV ejection fraction and then decide on the need for prophylactic ICD. Status: Acute (4) Atrial fibrillation with RVR: The patient was started on digoxin last evening. He was given a total of 0.5 mg IV and another 0.25 mg this morning. He will be started on 0.125 mg daily after the total loading dose of 1 mg. Apparently he was discharged on the digoxin in August. For some unknown reason, he has not been taking the medication. Status: Acute Additional A&P Information We will continue to monitor him in the hospital for proper control of the heart rate and heart failure. Attestations Medical Necessity Statement*: Patient requires continued hospital stay for close monitoring and further management. Possible discharge home tomorrow Coding Level of Care Code Acute Financial Sales Manager for Chg Fwd History Detailed Exam Detailed Medical Decision Making Moderate Complexity Diagnoses Acute on chronic systolic heart failure, NYHA class 4 I50.23 Atherosclerotic heart disease of hoh coronary artery without angina pectoris I25.10 [place] vs. transplanted heart: hoh heart Ischemic cardiomyopathy I25.5 Atrial fibrillation with RVR I48.91
--- NOTE | 2020-11-11 12:11 | PM.PN ---
Subjective Subjective: Interval history: Patient seen and examined this morning. He is in good spirits today and feels much better. Telemetry reviewed overnight. Heart rate now 70s to 80s. He was given digoxin last night loading dose. Patient denies feelings of nausea, chest pain, abdominal pain, breathing difficulty. He is seen wearing compression stockings today. Pedal edema has also decreased compared to yesterday. Patient feels today he feels good enough to go home. Also met with family around noon. [id number] Candice and her son are here. We discussed patient's CODE STATUS and he is to remain full code. I answered all their questions and concerns. Dr. Sherman would like to keep the patient in the hospital until tomorrow so we can further monitor his heart rate and make sure it stays consistently in the correct range. Vitals/I&O/Wt Last Vital Signs Temp 97.9 F 11/11/20 10:57 Pulse 68 11/11/20 10:57 Resp 12 11/11/20 10:57 BP 109/66 11/11/20 10:57 Pulse Ox 98 11/11/20 10:57 11/10/20 11/11/20 11/11/20 22:59 06:59 14:59 Intake Total 840 / 1680 840 / 840 Output Total 680 / 1830 625 / 2455 700 / 700 Balance 160 / -150 -625 / -775 140 / 140 Weight last 48 hrs Weight 68.492 kg Physical Exam Narrative: EXAM NARRATIVE: General: Alert oriented x3, patient seen laying in bed today. Appearing comfortable. Heart rate 70-80 range bedside. HEENT: Normocephalic, atraumatic, EOMI, breathing room air Cardio: Irregularly irregular, normal S1-S2, no murmurs rubs gallops, no JVD Respiratory: Good bilateral air entry, no wheezes no rhonchi appreciated GI: Abdomen soft, nontender, Behavior: Appropriate and cooperative, talkative Extremities: Trace pedal edema up to ankles. Edema much better compared to yesterday. Patient is seen with compression stockings. Data : 11/10/20 04:15 11/10/20 04:15 A&P Assessment and plan (1) Acute exacerbation of CHF (congestive heart failure): Status: Acute (2) Atrial fibrillation with RVR: Status: Acute (3) Mediastinal adenopathy: Status: Acute Additional A&P Information Patient presented to ER on 11/09/2020 with heart failure exacerbation. D-dimer troponin EKG from yesterday evening were reviewed. D-dimer slightly elevated most likely secondary to age. Patient is on Eliquis. Troponin flat, EKG had no new ischemic changes. We will continue patient on Lasix 40 mg twice daily. He was loaded with digoxin yesterday and is now on digoxin [address] Sherman's recommendations we will keep patient 1 more day in the hospital and plan for discharge tomorrow. We will monitor on telemetry today and overnight. We will continue LifeVest. Patient is to have another echo in November and at that point he will be evaluated for ICD. He will follow up with Dr. Sherman outpatient. Discussed the plan with patient's family and they demonstrate understanding. Mediastinal adenopathy: On CTA from 09/04/2020 new mild central mediastinal adenopathy was reported. precarinall node measuring 2.2 cm and a subcarinal node measuring 2 cm. These are new from previous study. Patient also reports new 30 pound weight loss in the last few months. That was unintentional. Will refer to outpatient pulmonology for follow-up. Fluids: Not indicated Electrolytes: Patient receive potassium 60 mEq today in total. He is to continue 20 mEq daily as per his home medication. Nutrition: Low-sodium cardiac diet Activity: Uses a walker to ambulate. Awaiting recommendations from physical therapy.. Attestations Medical Necessity Statement*: Need to monitor on telemetry overnight as per cardiology recommendations. Time Spent in Patient Care: 16 - 35 minutes Had a family meeting. Coding Level of Care Code Acute [place] Worker for Margaret Dinero Diagnoses Acute exacerbation of CHF (congestive heart failure) I50.9 Atrial fibrillation with RVR I48.91 Mediastinal adenopathy R59.0
[2020-11-11 15:12] LABS: Basophils # 0.1 10^3/uL (0.0-0.1); Basophils % 0.7 %; Eosinophils # 0.2 10^3/uL (0.0-0.8); Hematocrit 40.8 % (42.0-52.0); Hemoglobin 12.9 g/dL (11.7-16.6); Lymphocytes # 1.2 10^3/uL (0.8-4.8); Lymphocytes % 17.4 %; Mean Corpuscular HGB Conc 31.6 g/dL (30.0-36.0); Mean Corpuscular Volume 94.9 fl (80-94); Mean Platelet Volume 11.1 fL (7.4-10.4); Monocytes # 0.6 10^3/uL (0.2-0.9); Monocytes % 9.1 %; Neutrophils # 4.83 10^3/uL (1.8-7.7); Neutrophils % 69.5 %; Nucleated Red Blood Cells % 0 %; Platelet Count 243 10^3/cmm (130-400); Red Cell Distribution Width 13.7 % (12.1-15.1)
[2020-11-11 15:39] LABS: Blood Urea Nitrogen 17 mg/dL (8-23); Calcium 8.5 mg/dL (8.5-10.5); Carbon Dioxide 27 mmol/L (22-29); Chloride 102 mmol/L (98-107); Glucose 113 mg/dL (65-115); Magnesium 2.2 mg/dL (1.7-2.3); Osmolality Calculated 286 mOsm/kg (285-295); Sodium 137 mmol/L (136-145)
[2020-11-11] MEDS: atorvastatin 40 mg Tablet 80 MG PO (16:59)
[2020-11-11] MEDS: polyethylene glycol 3350 Pkt 17 gm PO (20:02)
--- NOTE | 2020-11-11 20:34 | PC.NURSE ---
Shift Note Frequent safety and comfort rounds continue. Orders and/or nursing care completed as indicated. Patient monitored for response to intervention and treatment(s). Pt HR is between in 80s to 100s at rest and when he is ambulating down hallways. Education provided includes new med digoxin. Patient and/or u.s. representative verbalizes understanding. Will continue to monitor.
[2020-11-12] VITALS (7 sets, daily range): BP systolic 122–131; BP diastolic 81–94; PULSE 82–95; RESP 18–22; TEMP 36.4–37.2; O2SAT 93–98
[2020-11-12] MEDS: pantoprazole DR 40 mg Tablet PO (05:07)
[2020-11-12] MEDS: clopidogrel 75 mg Tablet PO (05:07)
[2020-11-12] MEDS: amlodipine 5 mg Tablet PO (05:07)
[2020-11-12] MEDS: potassium chloride ER 20 mEq Tablet PO (05:07)
[2020-11-12] MEDS: isosorbide mononitrate ER 60 mg Tablet 30 MG PO (05:07)
--- NOTE | 2020-11-12 07:12 | PM.PN ---
Subjective Subjective: Interval history: Patient is feeling much better. His shortness of breath is improving. He is able to tolerate the medication so far well. No chest pain or chest tightness. No fever, chills or cough. No other specific complaints Medications: Reviewed: Yes Medication Review Details: Current Medications Hydrocodone Bitart/Acetaminophen (Hydrocodone-Acetaminophen 5-325 Mg Tablet) 1 tab PO Q8H PRN PRN Reason: Pain Albuterol/Ipratropium (Ipratropium-Albuterol 3 Ml Neb) 3 ml INHALATION Q6H PRN PRN Reason: SHORTNESS OF BREATH Allopurinol (Allopurinol 300 Mg Tablet) 150 mg PO BID [facility] Last Admin: 11/11/20 17:00 Dose: 150 mg Documented by: Amlodipine Besylate (Amlodipine 5 Mg Tablet) 5 mg PO QAM [facility] Last Admin: 11/12/20 05:07 Dose: 5 mg Documented by: Apixaban (Apixaban 5 Mg Tablet) 5 mg PO BID [facility] Last Admin: 11/11/20 17:00 Dose: 5 mg Documented by: Atorvastatin Calcium (Atorvastatin 40 Mg Tablet) 80 mg PO DAILY@1700 [facility] Last Admin: 11/11/20 16:59 Dose: 80 mg Documented by: Clopidogrel Bisulfate (Clopidogrel 75 Mg Tablet) 75 mg PO DAILY@0600 [facility] Last Admin: 11/12/20 05:07 Dose: 75 mg Documented by: Digoxin (Digoxin 125 Mcg Tablet) 125 mcg PO DAILY [facility] Last Admin: 11/11/20 09:45 Dose: 125 mcg Documented by: Furosemide (Furosemide 40 Mg Tablet) 40 mg PO BID@08,16 [facility] Last Admin: 11/11/20 16:58 Dose: 40 mg Documented by: Isosorbide Mononitrate (Isosorbide Mononitrate Er 60 Mg Tablet) 30 mg PO DAILY@0600 [facility] Last Admin: 11/12/20 05:07 Dose: 30 mg Documented by: Metoprolol Tartrate (Metoprolol Tartrate 50 Mg Tablet) 100 mg PO BID@0900,2100 [facility] Last Admin: 11/11/20 20:02 Dose: 100 mg Documented by: Nitroglycerin (Nitroglycerin 0.4 Mg Sublingual Tablet) 0.4 mg SUBLINGUAL Q5M PRN PRN Reason: Chest Pain Non-Formulary Medication (Sacubitril-Valsartan [Entresto]) 1 tab PO BID [facility] Last Admin: 11/11/20 17:00 Dose: 1 tab Documented by: Non-Formulary Medication (Jardiance) 10 mg PO DAILY [facility] Last Admin: 11/11/20 08:05 Dose: Not Given Documented by: Ondansetron HCl (Ondansetron 2 Mg/Ml Sdv 2 Ml) 4 mg IVP Q6H PRN PRN Reason: NAUSEA AND VOMITING Last Admin: 11/10/20 16:44 Dose: 4 mg Documented by: Pantoprazole Sodium (Pantoprazole Dr 40 Mg Tablet) 40 mg PO QAM [facility] Last Admin: 11/12/20 05:07 Dose: 40 mg Documented by: Polyethylene Glycol (Polyethylene Glycol 3350 Pkt 17 Gm) 17 gm PO BEDTIME [facility] Last Admin: 11/11/20 20:02 Dose: 17 gm Documented by: Potassium Chloride (Potassium Chloride Er 20 Meq Tablet) 20 meq PO QAM [facility] Last Admin: 11/12/20 05:07 Dose: 20 meq Documented by: Spironolactone (Spironolactone 25 Mg Tablet) 25 mg PO DAILY [facility] Last Admin: 11/11/20 08:04 Dose: 25 mg Documented by: Vitals/I&O/Wt Last Vital Signs Temp 98 F 11/12/20 04:00 Pulse 83 11/12/20 04:19 Resp 22 H 11/12/20 04:00 BP 122/81 11/12/20 04:00 Pulse Ox 98 11/12/20 04:00 11/11/20 11/12/20 11/12/20 22:59 06:59 14:59 Intake Total 360 / 1200 300 / 1500 Output Total 900 / 1600 2750 / 4350 Balance -540 / -400 -2450 / -2850 Physical Exam Narrative: EXAM NARRATIVE: GENERAL: The patient is alert and oriented times three. Slightly tachypneic. HEENT: No significant pallor, icterus or lymphadenopathy.Oral cavity: There are no mucous membrane lesions. NECK: Trachea appears to be central. No masses noted. No JVD or thyromegaly appreciated. RESPIRATORY: Chest is symmetrical. No intercostals muscle retraction or any accessory muscle activation. There is no chest wall tenderness. Breath sounds are heard bilaterally. No rales or rhonchi heard. No evidence of any consolidation. BREASTS: Deferred. HEART: First heart sound is variable. Second heart rate is normal. No S3. Short systolic murmur in the left sternal border. Grade 3 systolic murmur in the mitral area. No diastolic murmurs. No pericardial rub ABDOMEN: No vessel pulsations or distention. No tenderness. No organomegaly appreciated. Bowel sounds are normally heard. : Deferred. RECTAL: Deferred. LYMPHATIC: No lymphadenopathy noted in the neck or groin. EXTREMITIES: Trace edema with no cyanosis. MUSCULOSKELETAL: No acute joint deformities or swelling SKIN: There are no significant rashes or ecchymosis NEUROPSYCHIATRIC: The patient is alert and oriented x3. Appears to be in a good mood. No tremors or rigidity noted. Data : 11/11/20 14:38 11/11/20 14:38 Other Labs: Laboratory Last Values WBC 7.0 10^3/uL (4.0-10.0) 11/11/20 14:38 RBC 4.30 10^6/uL (4.1-5.3) 11/11/20 14:38 Hgb 12.9 g/dL (11.7-16.6) 11/11/20 14:38 Hct 40.8 % (42.0-52.0) L 11/11/20 14:38 MCV 94.9 fl (80-94) H 11/11/20 14:38 MCH 30.0 pg (28.0-34.0) 11/11/20 14:38 MCHC 31.6 g/dL (30.0-36.0) 11/11/20 14:38 RDW 13.7 % (12.1-15.1) 11/11/20 14:38 Plt Count 243 10^3/cmm (130-400) 11/11/20 14:38 MPV 11.1 fL (7.4-10.4) H 11/11/20 14:38 Neut % (Auto) 69.5 % 11/11/20 14:38 Lymph % (Auto) 17.4 % 11/11/20 14:38 [place] % (Auto) 9.1 % 11/11/20 14:38 Eos % (Auto) 3.0 % 11/11/20 14:38 Baso % (Auto) 0.7 % 11/11/20 14:38 Neut # (Auto) 4.83 10^3/uL (1.8-7.7) 11/11/20 14:38 Lymph # (Auto) 1.2 10^3/uL (0.8-4.8) 11/11/20 14:38 [place] # (Auto) 0.6 10^3/uL (0.2-0.9) 11/11/20 14:38 Eos # (Auto) 0.2 10^3/uL (0.0-0.8) 11/11/20 14:38 Baso # (Auto) 0.1 10^3/uL (0.0-0.1) 11/11/20 14:38 Nucleated RBC % (auto) 0 % 11/11/20 14:38 Nucleated RBCs # 0.0 /100WBC 11/11/20 14:38 D-Dimer 0.82 ug/mIFEU (0-0.59) H 11/10/20 16:57 Sodium 137 mmol/L (136-145) 11/11/20 14:38 Potassium 4.0 mmol/L (3.5-5.1) 11/11/20 14:38 Chloride 102 mmol/L (98-107) 11/11/20 14:38 Carbon Dioxide 27 mmol/L (22-29) 11/11/20 14:38 Anion Gap 12.0 (5-19) 11/11/20 14:38 BUN 17 mg/dL (8-23) 11/11/20 14:38 Creatinine 1.1 mg/dL (0.7-1.2) 11/11/20 14:38 GFR Calculation Not Reportable 11/11/20 14:38 Glucose 113 mg/dL (65-115) 11/11/20 14:38 Calculated Osmolality 286 mOsm/kg (285-295) 11/11/20 14:38 Calcium 8.5 mg/dL (8.5-10.5) 11/11/20 14:38 Magnesium 2.2 mg/dL (1.7-2.3) 11/11/20 14:38 Total Bilirubin 0.9 mg/dL (0.15-1.2) 11/09/20 09:23 AST 19 U/L (0-40) 11/09/20 09:23 ALT 19 U/L (0-41) 11/09/20 09:23 Alkaline Phosphatase 99 IU/L (40-130) 11/09/20 09:23 Troponin T Gen 5 ng/L 46 ng/L (0-15) H 11/10/20 16:57 Troponin T Baseline 44 ng/L (0-15) H 11/09/20 09:23 Troponin T 120 Minute 43.36 ng/L (0-15) H 11/09/20 11:40 Delta Troponin T -0.64 ABS# (0-10) L 11/09/20 11:40 Troponin T Hi Sens 6Hr 39.06 ng/L (0-15) H 11/09/20 15:20 Troponin T Hi Sens 6Hr Delta -4.94 ng/L (0-12) L 11/09/20 15:20 NT-Pro-B Natriuret Pep 93769 pg/mL (0-450) H 11/09/20 09:23 Total Protein 5.8 g/dL (6.6-8.7) L 11/09/20 09:23 Albumin 3.4 g/dL (3.5-5.2) L 11/09/20 09:23 Globulin 2.4 g/dL (1.3-4.6) 11/09/20 09:23 Procalcitonin 0.07 ng/mL (0-0.5) 11/09/20 09:23 SARS-CoV-2 Ag (Rapid) Negative (Negative) 11/09/20 11:22 A&P Assessment and plan (1) Acute on chronic systolic heart failure, NYHA class 4: May continue on the current medications. Status: Acute (2) Atherosclerotic heart disease of [place] coronary artery without angina pectoris: Since he was found to have no revascularizable lesions, may continue on the current medications. The Plavix may be continued. Status: Acute Qualifiers: [place] vs. transplanted heart: [place] heart Qualified Code(s): I25.10 - Atherosclerotic heart disease of [place] coronary artery without angina pectoris (3) Ischemic cardiomyopathy: Pt is on a LifeVest. We will repeat the echocardiogram towards the end of November to reevaluate the LV ejection fraction and then decide on the need for prophylactic ICD. Status: Acute (4) Atrial fibrillation with RVR: Need to have [facility] digoxin [facility] at [facility], next week Status: Acute Additional A&P Information Discharge home today. Appointment at the [facility] in 1 week to see the nurse practitioner. I will see him in the office in 1 month Attestations Medical Necessity Statement*: Discharge home today Coding Level of Care Code Acute Gui Developer for Margaret Dinero Diagnoses Acute on chronic systolic heart failure, NYHA class 4 I50.23 Atherosclerotic heart disease of [place] coronary artery without angina pectoris I25.10 [place] vs. transplanted heart: [place] heart Ischemic cardiomyopathy I25.5 Atrial fibrillation with RVR I48.91
[2020-11-12] MEDS: allopurinol 300 mg Tablet 150 MG PO (09:23)
[2020-11-12] MEDS: digoxin 125 mcg Tablet PO (09:23)
[2020-11-12] MEDS: apixaban 5 mg Tablet PO (09:23)
[2020-11-12] MEDS: FUROsemide 40 mg Tablet PO (09:23)
[2020-11-12] MEDS: spironolactone 25 mg Tablet PO (09:23)
[2020-11-12] MEDS: SACUBITRIL VALSARTAN 1 EACH PO (09:45)
[2020-11-12] MEDS: metoprolol tartrate 50 mg Tablet 100 MG PO (09:45)
--- NOTE | 2020-11-12 11:07 | P.DS_ITS ---
Discharge Providers Date of Admission: 11/10/20 14:54 Date of Discharge: November 12, 2020 Attending Provider at Admission: Sheila Brandt MD Attending Provider at Discharge: Sheila Brandt MD Primary Care Provider: Raymond Reddy MD Diagnoses at Discharge Discharge Diagnosis (1) Acute on chronic systolic heart failure, NYHA class 4: Status: Acute (2) Atherosclerotic heart disease of [place] coronary artery without angina pectoris: Status: Acute Qualifiers: [place] vs. transplanted heart: [place] heart Qualified Code(s): I25.10 - Atherosclerotic heart disease of [place] coronary artery without angina pectoris (3) Ischemic cardiomyopathy: Status: Acute (4) Atrial fibrillation with RVR: Status: Acute Reason for Visit Reason for Visit: BLE SWELLING Hospital Course Hospital Course 80-year-old male with history of ischemic cardiomyopathy with, systolic congestive heart failure presented today with chief complaint of worsening shortness of breath. At baseline he uses 2 L at night however during this hospitalization he was admitted because he was requiring 2 L of oxygen in the ER to keep his saturation above 90%. He was admitted and diuresed aggressively with IV diuretics. He did put out good amount of urine. His urine output was robust. His shortness of breath did improve to some extent however hospitalization was notable for A. fib RVR for which he was put on digoxin after getting loading dose over the weekend. Please note, he was put on digoxin in the past which he has not been taking for some reason at home. His beta-chiara dose was adjusted as well. Dr. Sherman was consulted. Patient has a LifeVest, no active chest pain, did not notice any discharge from the AICD. Considering his history of type 2 diabetes and coronary disease decision was made to discharge him on Jardiance 10 mg daily which has shown to improve mortality among other heart failure medications. Spironolactone was added as well, he is already taking Entresto. Home O2 evaluation was done before discharge, he did n ot qualify for oxygen. He remained symptom-free did improve with diuresis. He is full code we will follow up with cardiology for AICD evaluation in November. Physical Exam Narrative: EXAM NARRATIVE: Very pleasant elderly male Saturating well on room air S1, S2 variable Abdomen soft Lower extremity trace edema Bilateral breath sounds without rhonchi or crackles or crepitations EOMI, PERRLA No neurological deficits Discharge Data Data Completed and Pending: Completed Studies During Hospitalization Category Date Time Status XR chest 1V estefanía ble [id number] Urgent Exams 11/09/20 09:25 Completed Labs from last 24 hours 11/11/20 11/11/20 14:38 14:38 WBC 7.0 RBC 4.30 Hgb 12.9 Hct 40.8 L MCV 94.9 H MCH 30.0 MCHC 31.6 RDW 13.7 Plt Count 243 MPV 11.1 H Neut % (Auto) 69.5 Lymph % (Auto) 17.4 [place] % (Auto) 9.1 Eos % (Auto) 3.0 Baso % (Auto) 0.7 Neut # (Auto) 4.83 Lymph # (Auto) 1.2 [place] # (Auto) 0.6 Eos # (Auto) 0.2 Baso # (Auto) 0.1 Nucleated RBC % (a uto) 0 Nucleated RBCs # 0.0 Sodium 137 Potassium 4.0 Chloride 102 Carbon Dioxide 27 Anion Gap 12.0 BUN 17 Creatinine 1.1 GFR Calculation Not Reportable Glucose 113 Calculated Osmolal ity 286 Calcium 8.5 Magnesium 2.2 Vitals: Last Vital Signs Temp 97.6 F 11/12/20 07:33 Pulse 85 11/12/20 09:23 Resp 20 H 11/12/20 07:33 BP 131/94 11/12/20 07:33 Pulse Ox 96 11/12/20 09:00 Discharge Plan Discharge Patient Disposition: Home Condition: Stable Prescriptions: New spironolactone 25 mg Tablet 25 mg PO DAILY 30 Days Qty: 30 RF: 0 digoxin 125 mcg (0.125 mg) Tablet 125 mcg PO DAILY 30 Days Qty: 30 RF: 1 Jardiance 10 mg PO DAILY 30 Days Qty: 30 RF: 1 Continued (DME) wheeled walker See Rx Instructions .Route .MEDSUPPLY Qty: 1 RF: 0 fentanyl 50 mcg/hr patch 72 hour 50 mcg topical Q72H 30 Days Qty: 10 RF: 0 ascorbic acid (vitamin C) 500 mg tablet extended release 500 mg PO BID@, RF: 0 omega-3 fatty acids [Fish Oil Concentrate] 1,000 mg capsule 1,000 mg PO DAILY@06 RF: 0 metoclopramide HCl [Reglan] 5 mg tablet 5 mg PO BID Qty: 30 RF: 0 (DME) CPAP See Rx Instructions .Route .MEDSUPPLY Qty: 1 RF: 0 Entresto 97-103 mg tablet 1 tab PO BID Qty: 180 RF: 3 polyethylene glycol 3350 [Miralax] 17 gram/dose powder 17 gm PO BEDTIME RF: 0 latanoprost 0.005 % drops 1 drp ophthalmic (eye) QAM RF: 0 brimonidine 0.2 % drops 1 drp ophthalmic (eye) BID@,17 RF: 0 vitamin E 400 unit Capsule 400 unit PO BID RF: 0 atorvastatin 80 mg tablet 80 mg PO DAILY@1700 RF: 0 hydrocodone-acetaminophen 5-325 mg tablet 1 tab PO Q8H PRN (Reason: Pain) RF: 0 clopidogrel 75 mg tablet 75 mg PO DAILY@0600 RF: 0 nitroglycerin 0.4 mg tablet, sublingual 0.4 mg sublingual Q5M MDD 3 tabs PRN (Reason: Chest Pain) RF: 0 ezetimibe 10 mg tablet 10 mg PO DAILY@0600 RF: 0 allopurinol 300 mg tablet 150 mg PO BID RF: 0 amlodipine 5 mg tablet 5 mg PO QAM RF: 0 isosorbide mononitrate 60 mg tablet extended release 24 hr 30 mg PO DAILY@0600 RF: 0 potassium chloride 20 mEq tablet,ER particles/crystals 20 meq PO QAM RF: 0 pantoprazole 40 mg tablet,delayed release (DR/EC) 40 mg PO QAM RF: 0 Eliquis 5 mg tablet 5 mg PO BID RF: 0 furosemide 40 mg tablet 40 mg PO DAILY 30 Days Qty: 30 RF: 0 Changed metoprolol tartrate 50 mg tablet 100 mg PO Q12H 30 Days Qty: 60 RF: 1 Discontinued meloxicam 15 mg tablet 15 mg PO DAILY@06 RF: 0 Discharge Orders: Discharge Order (Routine); Ordered 11/12/20 Ordered By: Sheila Brandt Other Ambulatory Orders: Digoxin (Routine) Timeframe: 3 Days Facility: [facility] - Location: Lab - Main Lab Ordered By: Sheila Brandt Referrals: Raymond Reddy MD [Primary Care Provider] - 11/15/20 1:00 pm (You have a hospital followup with Dr. Reddy at his office at [facility] on November 15 at 1:00pm You will have your Digoxin Bloodwork done at this appointment. ) Red Sherman MD [Physician] - 12/24/20 10:45 am (Your appoinbtment you had already scheduled with Dr. Sherman on has been changed. You now have a cardiology followup with Dr. Sherman on December 24 at 10:45am) Discharge Diet: Cardiac Discharge Activity: Resume usual activity and Increase activity as tolerated Patient Instructions: Spironolactone (By mouth), Digoxin (By mouth), Opioid Safety Discharge Attestations Time Spent in Discharge Care*: less than 30 min Status at Discharge: Cognitive status at discharge: cognitively intact , Behavioral status at discharge: cooperative and independent in ADL's , Quality Metrics Clinical Quality Measures During this hospital stay, did patient experience: None Coding Level of Care Code Acute Chg FW DC note Diagnoses Acute on chronic systolic heart failure, NYHA class 4 I50.23 Atherosclerotic heart disease of [place] coronary artery without angina pectoris I25.10 [place] vs. transplanted heart: [place] heart Ischemic cardiomyopathy I25.5 Atrial fibrillation with RVR I48.91
--- NOTE | 2020-11-14 09:05 | PC.SOCIAL ---
discharge follow up call made, spoke with patient and spouse. spouse reports pt is sleeping a lot. patient picked up new prescriptions from the pharmacy understandings directions for taking, aware of discontinued medication. patient is aware of follow up appointment dates and times.
== END 2020-11-12 13:02 | disposition home or self-care (01) | DRG 291 ==
LOC: ER 10:03 → CSU 20:53
PROVIDERS: Internal Medicine; Admitting Provider Internal Medicine; Emergency Provider Emergency Medicine; PCP Internal Medicine; Visit Provider Internal Medicine
DX: I13.0 Hypertensive heart and chronic kidney disease with heart failure and stage 1 through stage 4 chronic kidney disease, or unspecified chronic kidney disease (principal); I50.23 Acute on chronic systolic (congestive) heart failure; I48.20 Chronic atrial fibrillation, unspecified; N18.9 Chronic kidney disease, unspecified; Z85.46 Personal history of malignant neoplasm of prostate; I25.10 Atherosclerotic heart disease of native coronary artery without angina pectoris; Z95.5 Presence of coronary angioplasty implant and graft; Z86.74 Personal history of sudden cardiac arrest; E78.5 Hyperlipidemia, unspecified; K21.9 Gastro-esophageal reflux disease without esophagitis; M10.9 Gout, unspecified; K44.9 Diaphragmatic hernia without obstruction or gangrene; I25.5 Ischemic cardiomyopathy; I34.0 Nonrheumatic mitral (valve) insufficiency; M19.90 Unspecified osteoarthritis, unspecified site; Z96.642 Presence of left artificial hip joint; Z96.612 Presence of left artificial shoulder joint; Z90.79 Acquired absence of other genital organ(s); Z79.01 Long term (current) use of anticoagulants; Z79.891 Long term (current) use of opiate analgesic; Z95.810 Presence of automatic (implantable) cardiac defibrillator; R59.0 Localized enlarged lymph nodes; F32.9 Major depressive disorder, single episode, unspecified
CPT/HCPCS: 36415; 71045; 80048; 80053; 83735; 83880; 84145; 84484; 85025; 85378; 87426; 93005; 94760; 96374; 97161; 99285; G0378; J1160; J1940; J2405; J3490

== ENCOUNTER → 2020-11-15 12:46 | Outpatient (BNVA) | payer MEDICARE, SELFPAY | PROVIDERS: PCP Internal Medicine; Visit Provider Internal Medicine | DX: I25.5 Ischemic cardiomyopathy (principal); I48.91 Unspecified atrial fibrillation; I50.9 Heart failure, unspecified; I50.23 Acute on chronic systolic (congestive) heart failure; K21.00 Gastro-esophageal reflux disease with esophagitis, without bleeding; R54 Age-related physical debility; G89.4 Chronic pain syndrome | CPT/HCPCS: 80162 ==

== ENCOUNTER 2020-11-27 09:03 | Outpatient (CLI) | payer MEDICARE, SELFPAY ==
--- NOTE | 2020-11-27 09:30 | US_ITS ---
WS: [id number] Ultrasound pelvis. HISTORY: 80-year-old male with possible mass posterior to the bladder. COMPARISON: CT 08/05/2020, renal ultrasound 08/04/2020 Normal distention of the urinary bladder. No free fluid behind the urinary bladder. No filling defect within the bladder. No soft tissue mass identified posterior to the bladder. Fluid-filled and disten ded rectum with air is noted. US/US pelvic complete* [id number] IMPRESSION: No bladder mass or pelvic mass. Area of variable echogenicity posterior to the bladder is the rectum.
== END 2020-11-27 09:04 | disposition home or self-care (01) ==
LOC: US 09:05
PROVIDERS: PCP Internal Medicine; Visit Provider Urology
DX: R19.00 Intra-abdominal and pelvic swelling, mass and lump, unspecified site (principal)
CPT/HCPCS: 76856; 81003

== ENCOUNTER 2020-12-12 09:35 | Outpatient (CLI) | payer MEDICARE, SELFPAY ==
--- NOTE | 2020-12-12 10:15 | USCV_ITS ---
Stanislav Wu Age: 80 Gender: M : 1940 Exam Date: 12/12/2020 10:22 Ordering Phys: Paulette Summers Technologist: Lisa Shelton [place] [facility] [place] CHF BP: 120 / 75 HR: 63 Rhythm: Sinus Technical Quality: Adequate MEASUREMENTS (Male / Female) Normal Values 2D ECHO LV Diastolic Diameter PLAX 4.4 cm 4.2 - 5.9 / 3.9 - 5.3 cm LV Systolic Diameter PLAX 3.8 cm LV Chamber Size 5.0 cm IVS Diastolic Thickness 1.1 cm 0.6 - 1.0 / 0.6 - 0.9 cm IVS Systolic Thickness 1.1 cm LVPW Diastolic Thickness 0.6 cm 0.6 - 1.0 / 0.6 - 0.9 cm LVPW Systolic Thickness 1.8 cm RV Chamber Size 3.2 cm LVOT Diameter 1.6 cm LV Ejection Fraction 2D Teich 30.4 % LV Ejection Fraction MOD 2C 70.6 % LV Ejection Fraction 2C AL 72.7 % LA Diameter 4.6 cm LA Width 5.5 cm LA Height 5.6 cm RA Width 4.7 cm RA Height 5.1 cm Aorta at Sinotubular Diameter 2.6 cm M-MODE LV Diastolic Diameter MM 6.4 cm 4.2 - 5.9 / 3.9 - 5.3 cm LV Systolic Diameter MM 4.8 cm LV Ejection Fraction MM Teich 48.1 % IVS Diastolic Thickness MM 0.9 cm 0.6 - 1.0 / 0.6 - 0.9 cm IVS Systolic Thickness MM 1.6 cm LVPW Diastolic Thickness MM 1.3 cm 0.6 - 1.0 / 0.6 - 0.9 cm LVPW Systolic Thickness MM 1.5 cm RV Diastolic Diameter MM 2.1 cm Aortic Annulus Diameter 3.6 cm LA Ao Ratio MM 1.4 MV E Point Septal Separation 0.8 cm FINDINGS Left Ventricle Diffuse hypokinesis of the left ventricle with almost akinetic left ventricular apex. LV ejection fraction around 30%. Right Ventricle Possibly normal RV size and ejection fraction. Right Atrium Mildly increased right atrial size. Left Atrium Moderately increased left atrial size. Mitral Valve Thickened mitral valve. Mild mitral annular calcification. Aortic Valve Thickened aortic valve. Tricuspid Valve No gross abnormalities noted Pulmonic Valve Pulmonic valve not well visualized. Pericardium No pericardial effusion. Aorta Normal aortic annulus size. CONCLUSIONS Diffuse hypokinesis of the left ventricle with almost akinetic left ventricular apex. LV ejection fraction around 30%. Moderately increased left atrial size. Mildly increased right atrial size. Possibly normal RV size and ejection fraction. Thickened mitral valve. Mild mitral annular calcification. Compared to the study from 09/09/2020, there may not be a significant change. Dr Red Sherman MD FACC (Electronically Signed) Final Date: 12 December 2020 22:47 S
== END 2020-12-12 09:36 | disposition home or self-care (01) ==
LOC: RAD 09:41
PROVIDERS: PCP Internal Medicine; Visit Provider Nurse Practitioner Family
DX: I50.23 Acute on chronic systolic (congestive) heart failure (principal); I25.5 Ischemic cardiomyopathy; I25.119 Atherosclerotic heart disease of native coronary artery with unspecified angina pectoris; I05.9 Rheumatic mitral valve disease, unspecified
CPT/HCPCS: 93308

== ENCOUNTER → 2020-12-26 09:36 | Outpatient (BNVA) | payer MEDICARE, SELFPAY | PROVIDERS: PCP Internal Medicine; Visit Provider Thoracic Surgery (Cardiothoracic Vascular Surgery) | DX: I50.23 Acute on chronic systolic (congestive) heart failure (principal); Z20.822 Contact with and (suspected) exposure to COVID-19 | CPT/HCPCS: 87635 ==

== ENCOUNTER 2020-12-31 14:12 | Observation (INO) | payer MEDICARE, SELFPAY ==
[2020-12-26 10:52] VITALS: BMI 23.2
--- NOTE | 2020-12-26 11:08 | ANES.PREANE2 ---
Pre-Anesthetic Assessment Pre-Anesthetic Assessment: Height/Weight: Height 1.73 m Weight 69.4 kg Preop Diagnosis: Cardiomyopathy; medically refractory Proposed Procedure: Operation Date: 12/31/20 12:10 Proposed Procedures p Defibrillator Placement(Not Applicable) - Familia Kirkland MD Familial anesthetic complications: Heart stopped during his stent placement Social: Social History: No alcohol and No tobacco Exam: Pre-Anes Outpt Exam: alert, oriented x 3, clear to auscultation bilaterally and regular rate & rhythm Airway: MP: 3 Dentition: False Pulmonary: Pulmonary: [place] and Sleep apnea CV/HEM: CV/HEM: Afib and CHF Comments: MVR, 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 Severe left ventricular systolic dysfunction. Ejection fraction of 25%. 2. This is an 80-year-old white male with history of previous myocardial infarction, multiple PCI's, chronic atrial fibrillation, presenting with recurrent episodes of heart failure and worsening LV systolic function. He had a Miochol perfusion imaging which revealed an elevated transient ischemic dilatation ratio. Multiple areas of fixed defects with the very small areas of reversible defects. In view of his clinical presentation and the abnormal objective findings, in order to further evaluate his coronary status, a repeat cardiac catheterization was recommended. Patient underwent left catheterization with left and right coronary angiogram and LV angiogram today. The findings are as follows.. 3. Patent stented segments of the proximal to mid LAD, proximal to mid circumflex artery, proximal intermediate and right coronary arteries. There was moderate in-stent stenosis in the RCA and in the intermedius artery. The LV cavity was found to be mildly dilated with an ejection fraction of around 25%. LVEDP was 13 mmHg. 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 LV systolic function is moderately reduced with EF of 35 to 40%. There is severe hypokinesis of anterior and apical peña. Diastolic function is indeterminate because of atrial fibrillation. There is mild to moderate mitral regurgitation. Mild aortic regurgitation is seen. Mild pulmonic regurgitation is present. RVSP is 45 to 50 mmHg consistent with moderate pulmonary hypertension. Compared to prior study from 06/30/2018, LV systolic function is now further decreased to 35 to 40%. Atherosclerotic heart disease of [place] coronary artery without angina pectoris Atrial fibrillation Atrial fibrillation with RVR Benign essential hypertension with target blood pressure below 140/90 Cardiac arrest High risk for any kind of surgical intervention, because of history of cardiac arrest with general anesthesia Cardiac LV ejection fraction >40% Chronic kidney disease Congestive heart failure Dyslipidemia (high LDL; low HDL) Erectile dysfunction Essential (primary) hypertension GERD (gastroesophageal reflux disease) Gout Hiatal hernia History of prostate cancer Hx of angiography Ischemic cardiomyopathy History of 16 stents Ischemic cardiomyopathy Mediastinal adenopathy Mitral valve regurgitation Osteoarthritis VENU (stress urinary incontinence), male Surgical History History of appendectomy History of carpal tunnel release History of hemorrhoidectomy History of inguinal hernia repair History of left hip replacement History of left shoulder replacement History of prostatectomy S/P PTCA (percutaneous transluminal coronary angioplasty) Family History Brother CAD (coronary artery disease) Diabetes Heart disease Father CAD (coronary artery disease) Heart disease Sister CAD (coronary artery disease) Cancer Diabetes Heart disease Mother Diabetes Stroke Grandmother Diabetes Denies family history of Clotting disorder Dementia Chronic kidney disease (CKD) Suicide Anesthesia complication Bleeding disorder Lung disease Social History Smoking and tobacco status: former smoker Alcohol intake: never Marital status: Current occupational status: retired History of recent travel: No Data Anesthesia Cardiac Studies: Holter Monitor 03/12/20
[2020-12-26 14:18] LABS: Basophils % 0.5 %; Eosinophils # 0.2 10^3/uL (0.0-0.8); Eosinophils % 2.2 %; Hematocrit 46.6 % (42.0-52.0); Hemoglobin 14.7 g/dL (11.7-16.6); Lymphocytes # 1.6 10^3/uL (0.8-4.8); Mean Corpuscular HGB Conc 31.5 g/dL (30.0-36.0); Mean Corpuscular Volume 88.8 fl (80-94); Mean Platelet Volume 10.6 fL (7.4-10.4); Monocytes # 0.7 10^3/uL (0.2-0.9); Monocytes % 8.8 %; Neutrophils # 5.65 10^3/uL (1.8-7.7); Neutrophils % 69.3 %; Nucleated Red Blood Cells % 0 %; Platelet Count 246 10^3/cmm (130-400); Red Blood Count 5.25 10^6/uL (4.1-5.3); Red Cell Distribution Width 14.3 % (12.1-15.1); White Blood Count 8.2 10^3/uL (4.0-10.0)
[2020-12-26 14:27] LABS: Blood Urea Nitrogen 14 mg/dL (8-23); Chloride 102 mmol/L (98-107); Creatinine Clr Calc Pharmacy 70.4722; Glucose 116 mg/dL (65-115); Osmolality Calculated 285 mOsm/kg (285-295); Potassium 4.6 mmol/L (3.5-5.1); Sodium 137 mmol/L (136-145)
[2020-12-26 15:12] LABS: Glucose Urine UA 2+ (Normal); Ketones Urine Negative (Negative); Protein Urine Neg (Negative); Specific Gravity, Urine 1.005 (1.005-1.030); Urine Appearance Clear (CLEAR); Urine Color Straw (Yellow); pH Urine 7 (5-7)
[2020-12-26 15:13] LABS: Add Urine Microscopic? YES; Bilirubin Urine Neg (Negative); Blood Urine Neg (Negative); Leukocyte Esterase Urine Negative (Negative); Nitrate Urine Negative (Negative); RBC Urine 0-4 /hpf (0-2); Sulfosalicylic Acid Urine Negative (Negative); Urobilinogen Urine Norm (Negative)
[2020-12-26 15:14] LABS: Add Urine Culture? No; Bacteria Urine TRACE /hpf; Mucus Urine 1+ /hpf
[2020-12-26 21:05] LABS: Anion Gap 15.6 (5-19); Carbon Dioxide 24 mmol/L (22-29)
[2020-12-31] VITALS (14 sets, daily range): BP systolic 127–171; BP diastolic 75–94; PULSE 57–66; RESP 12–21; TEMP 36.3–37; O2SAT 93–97; BMI 23.2
--- NOTE | 2020-12-31 | SCC_ITS ---
Procedure Done: Automatic implantable cardiac defibrillator implantation 215.6 seconds of fluoroscopic guidance, for a cumulative dose of 29.70 mGy, was provided to Dr. Kirkland by the radiology department. C-arm images of the chest were saved for the patient's permanent record. [facility]
--- NOTE | 2020-12-31 10:40 | SC_ITS ---
WS: [id number] C-ARM RADIOGRAPHS CHEST; 2 IMAGES HISTORY: AICD implantation COMPARISON: None available. Intraoperative imaging during AICD placement. AICD is being placed through the LEFT subclavian artery . SC/C-arm FL for Pacemaker IMPRESSION: Intraoperative imaging during AICD placement.
--- NOTE | 2020-12-31 10:40 | XR_ITS ---
WS: [id number] CHEST 2 VIEWS HISTORY: Assessing resolution of left lower lobe effusion/AICD preop COMPARISON: 11/09/2020 Lungs: Mild pulmonary hyperinflation. Previously described atelectasis and/or effusion at the LEFT cherie ng base has resolved. Pulmonary vasculature has also improved. Stable granuloma in the LEFT lower lob e. Cardiac size: Normal. Mediastinum/Aorta: Mild atherosclerosis aorta. Bones: Prior LEFT humeral head replacement. Thoracic spondylosis. XR/XR chest 2V* [id number] IMPRESSION: 1. Improved aeration at the LEFT lung base. Resolved effusion and/or atelectas is. 2. Mild emphysema. 3. Resolved pulmonary venous congestion.
[2020-12-31] MEDS: sodium chloride 0.9% 1,000 ML 30 ML IV (11:37)
--- NOTE | 2020-12-31 11:58 | P.ANESUD_ITS ---
Pre-Anesthetic Update Pre-Anesthetic Assessment: Date of Surgery/Procedure: 12/31/20 Preop Ethel gnosis: Cardiomyopathy; medically refractory Proposed Procedure: Operation Date: 12/31/20 12:10 Proposed Procedures p Defibrillator Placement(Not Applicable) - Familia Kirkland MD Any changes to Pre-Anesthetic Assessment?: No Last Intake: Intake Last Liquid Date 12/30/20 Last Liquid Time 21:00 Last Solid Date 12/30/20 Last Solid Time 15:00 Vitals: Temperature 98.6 F 12/31/20 11:20 Temperature Source Temporal Artery S can 12/31/20 11:20 Pulse Rate 57 L 12/31/20 11:20 Pulse Rhythm 12/31/20 11:20 Pulse Strength 3+ Normal 12/31/20 11:20 Respiratory Rate 18 12/31/20 11:20 Blood Pressure 133/94 12/31/20 11:20 Blood Pressure Dee Dee n 107 12/31/20 11:20 Pulse Oximetry 97 12/31/20 11:20 Oxygen Delivery Me thod 12/31/20 11:20 Exam: Pre-Anes Outpt Exam: alert, oriented x 3, clear to auscultation bilaterally and regular rate & rhythm Cardiac Studies: Holter Monitor 03/12/20
--- NOTE | 2020-12-31 12:24 | P.HP_ITS ---
Providers/Chief Complaint Admitting Physician: Dr. Kirkland. Cardiothoracic surgery Primary Care Provider: Raymond Reddy MD Chief Complaint: Cardiomyopathy History of Present Illness Stanislav Wu is an 80 year old male has been referred to our service by Dr. Sherman to consider AICD implantation due to cardiomyopathy with a history of multiple PCI's and myocardial infarctions. He has most recently been wearing a LifeVest and there have been no 2 recorded events related to its use including what appears to be one full discharge. He currently denies any chest pain or substantial syncope. He has had dizziness and did have a hospitalization due to exacerbation of CHF with subsequent discharge on November 12. Since that hospitalization, he states he has been feeling fairly well. Cardiac catheterization was completed on September 09 of this year revealing patent stented segments of the LAD, intermedius, and circumflex vessels. Ejection fraction was 25%. Cardiomyopathy treatment has included Entresto, amlodipine, Jardiance. Atrial fibrillation. Chest x-ray revealed clear lung choi and mild cardiomegaly. Review of Systems Const: Denies: fever(s), chills, change in appetite, change in weight, fatigue or night sweats Eyes: Denies: change in vision or blurry vision ENMT: Denies: odynophagia or hoarseness Card: Reports: palpitations, swelling of feet/ankles, dyspnea on exertion and orthopnea; Denies: chest pain, irregular heart rhythm or edema Resp: Denies: dyspnea or productive cough GI: Denies: abdominal pain, nausea, vomiting, dysphagia, heartburn or change in bowel habits : Denies: difficulty urinating, dysuria, urinary frequency, urinary urgency or urinary hesitancy Musc: Reports: extremity swelling; Denies: extremity pain Skin/Breast: Denies: rash Neuro: Denies: headache(s), numbness in extremities, weakness in extremities or sensory changes Psych: Denies: anxiety, depression or change in appetite Endo: Denies: polyuria, polydipsia or cold intolerance Britton/Lymph: Denies: easy bruising, easy bleeding, petechiae or enlarged lymph nodes Medications/Allergies Home Medications Medication Instructions Recorded Confirmed Last Taken Type polyethylene glycol 3350 [Miralax] 17 gm PO BEDTIME 02/29/20 12/31/20 12/30/20 History ascorbic acid (vitamin C) 500 mg 500 mg PO BID@03/08/20 12/31/20 12/30/20 History tablet,extended release omega-3 fatty acids 1,000 mg 1,000 mg PO DAILY@03/08/20 12/31/20 12/28/20 History capsule brimonidine 1 drp OPHTHALMIC (EYE) BID@05/02/20 12/26/20 11/09/20 06:00 History latanoprost 1 drp OPHTHALMIC (EYE) QA 05/02/20 12/31/20 12/31/20 History vitamin E 400 unit PO BID 05/02/20 12/31/20 12/28/20 History CPAP #1 ea 05/07/20 12/17/20 Unknown Rx atorvastatin 80 mg PO DAILY@1700 08/04/20 12/31/20 12/30/20 History clopidogrel 75 mg PO DAILY@0600 08/04/20 12/26/20 12/25/20 History ezetimibe 10 mg PO DAILY@0608/04/20 12/31/20 12/30/20 History nitroglycerin 0.4 mg SUBLINGUAL Q5M PRN MDD 3 08/04/20 12/26/20 Unknown History tabs wheeled walker #1 ea 09/17/20 12/17/20 Unknown Rx sacubitril 97 mg-valsartan 103 mg 1 tab PO BID #180 tab 10/01/20 12/31/20 12/31/20 Rx tablet Eliquis 5 mg PO BID 11/09/20 12/31/20 12/28/20 History allopurinol 150 mg PO BID 11/09/20 12/31/20 12/30/20 History amlodipine 5 mg PO QAM 11/09/20 12/31/20 12/31/20 History isosorbide mononitrate 30 mg PO DAILY@0600 11/09/20 12/31/20 12/31/20 History pantoprazole 40 mg PO QAM 11/09/20 12/31/20 12/30/20 History potassium chloride 20 meq PO QAM 11/09/20 12/31/20 12/30/20 History digoxin 125 mcg PO DAILY 30 Days #30 tab 11/12/20 12/31/20 12/31/20 Rx furosemide 40 mg PO DAILY 30 Days #30 tab 11/12/20 12/31/20 12/30/20 Rx metoprolol tartrate 100 mg PO Q12H 30 Days #60 tab 11/12/20 12/31/20 12/31/20 07:00 Rx metoclopramide HCl 5 mg tablet 5 mg PO BID #30 tab 11/23/20 12/31/20 12/30/20 Rx meloxicam 15 mg tablet 15 mg PO DAILY 11/27/20 12/31/20 12/28/20 History fentanyl 50 mcg/hr transdermal 50 mcg TOPICAL Q72H 30 Days #10 ea 12/17/20 12/31/20 12/27/20 Rx patch hydrocodone 5 mg-acetaminophen 325 1 tab PO Q8H PRN 30 Days #60 tab 12/17/20 12/26/20 Unknown Rx mg tablet Allergies Allergy/AdvReac Type Severity Reaction Status Date / Time No Known Allergies Allergy Verified 12/24/20 08:33 PFSH Acute PFSH: Medical History (Updated 12/31/20 @ 12:32 by Familia Kirkland MD) Acute exacerbation of CHF (congestive heart failure) Acute on chronic systolic heart failure, NYHA class 4 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 LV systolic function is moderately reduced with EF of 35 to 40%. There is severe hypokinesis of anterior and apical peña. Diastolic function is indeterminate because of atrial fibrillation. There is mild to moderate mitral regurgitation. Mild aortic regurgitation is seen. Mild pulmonic regurgitation is present. RVSP is 45 to 50 mmHg consistent with moderate pulmonary hypertension. Compared to prior study from 06/30/2018, LV systolic function is now further decreased to 35 to 40%. Atherosclerotic heart disease of [place] coronary artery without angina pectoris Atrial fibrillation Atrial fibrillation with RVR Benign essential hypertension with target blood pressure below 140/90 Cardiac arrest High risk for any kind of surgical intervention, because of history of cardiac arrest with general anesthesia Cardiac LV ejection fraction >40% Chronic kidney disease Congestive heart failure Dyslipidemia (high LDL; low HDL) Erectile dysfunction Essential (primary) hypertension GERD (gastroesophageal reflux disease) Gout Hiatal hernia History of prostate cancer Hx of angiography Ischemic cardiomyopathy History of 16 stents Ischemic cardiomyopathy Mediastinal adenopathy Mitral valve regurgitation Osteoarthritis VENU (stress urinary incontinence), male Surgical History History of appendectomy History of carpal tunnel release History of hemorrhoidectomy History of inguinal hernia repair History of left hip replacement History of left shoulder replacement History of prostatectomy S/P PTCA (percutaneous transluminal coronary angioplasty) Family History Brother CAD (coronary artery disease) Diabetes Heart disease Father CAD (coronary artery disease) Heart disease Sister CAD (coronary artery disease) Cancer Diabetes Heart disease Mother Diabetes Stroke Grandmother Diabetes Denies family history of Clotting disorder Dementia Chronic kidney disease (CKD) Suicide Anesthesia complication Bleeding disorder Lung disease Social History Smoking and tobacco status: former smoker Alcohol intake: never Marital status: Current occupational status: retired History of recent travel: No Vitals/I&O/Wt Last Vital Signs Temp 98.6 F 12/31/20 11:20 Pulse 57 L 12/31/20 11:20 Resp 18 12/31/20 11:20 BP 133/94 12/31/20 11:20 Pulse Ox 97 12/31/20 11:20 Physical Exam Const: COMMON NORMALS: patient oriented x3 and alert ORIENTATION/CONSCIOUSNESS: Yes oriented to person, Yes oriented to place and Yes oriented to time HENMT: COMMON NORMALS: normocephalic HEAD & SCALP: normocephalic; no cranial bruits Neck/C-Spine: COMMON NORMALS: full ROM, supple, no JVD and No carotid bruits GENERAL: Yes trachea midline CERVICAL SPINE: Yes cervical ROM normal Chest: COMMONS NORMALS: normal inspection of the chest and normal palpation of entire chest wall Resp: COMMON NORMALS: normal respiratory effort, No use of accessory muscles, clear to auscultation bilaterally and percussion normal EFFORT & INSPECTION: Yes able to speak in complete sentences and Yes symmetric chest movement AUSCULTATION: clear to auscultation bilaterally PERCUSSION: percussion normal Cardio: COMMON NORMALS: no JVD, regular rate, S1 normal heart sound present, S2 normal heart sound present, No gallops present (Cardio), No rub (Cardio) and Peripheral pulses 2+ throughout; negative for regular rhythm and negative for No murmurs present (Cardio) JUGULAR VENOUS DISTENTION: no JVD RATE: regular rate RHYTHM: abnormal rhythm and abnormal rhythm irregularly irregular HEART SOUNDS: S1 normal heart sound present, S2 normal heart sound present and Murmur heart sound present systolic Location: apex Intensity: II/ Timing: mid PERIPHERAL PULSES: Peripheral pulses 2+ throughout Extremity: COMMON NORMALS: no calf tenderness OTHER: Trace of edema edema Neuro: COMMON NORMALS: patient oriented x3, no focal motor deficits and no sensory deficits noted SENSORIUM/ORIENTATION: Yes alert, Yes oriented to per son, Yes oriented to place and Yes oriented to time Data : 12/26/20 11:18 12/26/20 11:18 A&P Assessment and plan (1) Ischemic cardiomyopathy: Ischemic cardiomyopathy status post multiple interventions. Ejection fraction 45%. Documented discharge from the LifeVest. AICD has been recommended by cardiology. Rationale for this was carefully discussed with Mr. Wu and family. All questions answered. Details and risks of the procedure were carefully and frankly discussed. Risks reviewed include the possibility of , stroke, heart attack, major bleeding, infection, pneumonia, pneumothorax requiring chest tube, dislodgment of the leads requiring revision, inability to place the leads adequately, organ failure, failure to benefit, prolonged hospital stay, pain after the procedure, need for further procedures, inability to complete the procedure, and possible need for long-term followup. All questions were answered. Appropriate consents have been provided for review and signature. Status: Acute Attestations Medical Necessity Statement*: Medically refractory ischemic cardiomyopathy with poor ejection fraction and documented malignant arrhythmias with a LifeVest rescue Time Spent in Patient Care: 16 - 35 minutes Coding Level of Care Code Acute Foundation Relations Manager for Margaret Dinero Diagnoses Ischemic cardiomyopathy I25.5
[2020-12-31] MEDS: lidocaine 1% INJ 20 mL INJECTION (12:53)
[2020-12-31] MEDS: ceFAZolin 1,000 mg SDV 1000 MG IRRIGATION (13:34)
--- NOTE | 2020-12-31 14:42 | P.PCN_ITS ---
PACU note PACU note: VSS, Good respiratory effort, report to SENIOR GAME ADVISOR Post-Anesthesia Exam: awake
--- NOTE | 2020-12-31 14:42 | PM.PACU ---
PACU note PACU note: VSS, Good respiratory effort, report to MANAGER CABLE Post-Anesthesia Exam: awake
--- NOTE | 2020-12-31 14:44 | XR_ITS ---
WS: [id number] PORTABLE CHEST HISTORY: post op cabg COMPARISON: 12/31/2020 Status post AICD placement. LEFT subclavian pacer wires are now present. No complications from the recent pacer insertion. No pneumothorax. No pleural effusion or pneumothora x. Cardiac size: Normal. Mediastinum/Aorta: Mild atherosclerosis aorta. LEFT humeral head prosthesis. Severe narrowing of the RIGHT glenohumeral joint. XR/XR chest 1V portable [id number] IMPRESSION: Uncomplicated placement of an AICD.
--- NOTE | 2020-12-31 14:58 | P.OP_ITS ---
Operative Report Date of procedure: December 31, 2020 Pre-op Diagnosis: Cardiomyopathy; medically refractory Post-op diagnosis: same Procedure Done: Automatic implantable cardiac defibrillator implantation Implants: AICD generator, ventricular lead, atrial lead Pathology: none sent Surgeon: Familia Kirkland Anesthesia: MAC and Local Complications: 1: Post procedure chest x-ray reveals appropriate lead positioning and no evidence for pneumothorax Condition: stable Disposition: PACU Brief History: Mr. Ramsey is an 80-year-old gentleman referred to our service by Dr. Sherman for AICD implantation due to cardiomyopathy with a prior history for multiple PCI's and myocardial infarctions. Recommendations was carefully discussed with him and his family. Appropriate consents have been reviewed and signed. Procedure: Procedure: Mr. Wu was taken to the OR suite and placed in the supine position over a shoulder roll. He received conscious sedation with continuous anesthesia monitoring by. His entire chest was sterilely prepped and draped. 1% lidocaine was infiltrated in the left subclavicular region. While in Trendelenburg position, utilizing modified seldinger technique, a guidewire was placed in the left subclavian vein. This was confirmed in position by fluoroscopy. A second guidewire was then placed in similar fashion. Next, after infiltration with lidocaine, a subcutaneous pocket was created beginning from the exit point of the guidewire and extending laterally and inferiorly. Cautery was utilized to create the pocket just above the pectoralis musculature. Hemostasis was confirmed. An antibiotic-soaked sponge was placed in the wound. A dilator and tear-away sheath was placed over the guidewire and advanced under fluoroscopy. Guidewire and dilator were removed. Next using a combination of curved and straight stylettes, the right ventricular lead was placed in position by fluoroscopy. The distal screw was extended. Interrogation was then performed confirming appropriate parameters. The tear-away sheath was then removed and the ventricular lead was sewn to the floor of the subcutaneous pocket. Next, atrial lead was placed in a similar fashion with fluoroscopic guidance. Generator was brought into the field, and after confirmation of hemostasis in the subcutaneous pocket, the leads was connected to the generator with appropriate capture. The entire system was interrogated by fluoroscopy. Leads and generator were secured in the pocket. Sponge and needle count was correct. The wound was then closed in 2 layers of 3-0 Vicryl suture. Skin was reapproximated in a subcuticular manner with 4-0 Monocryl suture. A pressure dressing was applied. The left arm was placed in a sling. The patient had equal breath sounds bilaterally. He was then transferred to the PACU, where chest x-ray revealed appropriate lead positioning and no evidence for pneumothorax. I did financial counselor with the family at the completion of the procedure. Following are the specifics of this system: Right ventricular lead is 62 cm and model [id number]. Serial number [id number] Right atrial lead is 52 cm. Serial number [id number] Ventricular lead had sensing of 15.9 mV with an impedance of 513 ohms. Threshold was 0.5 V Atrial lead had a sensing of 5.9 mV with an impedance of 494 ohms. Threshold was 0.5 V. [employer] generator: Model # [id number] Serial # [id number]
--- NOTE | 2020-12-31 15:04 | ANE.PACU2 ---
Inpatient post-anesthesia follow up: Airway intact: Yes Vital signs: Temperature 97.7 F Pulse Rate 60 Respiratory Rate 17 Blood Pressure 147/75 Pulse Oximetry 94 Oxygen Delivery Me thod Room Air Oxygen Flow Rate Fraction of Inspir ed Oxygen Hydration adequate: Yes Nausea and vomiting: No Pain level: 2 Mental status: Baseline
[2020-12-31] MEDS: atorvastatin 40 mg Tablet 80 MG PO (16:03)
[2020-12-31] MEDS: metoprolol tartrate 50 mg Tablet 100 MG PO (16:03)
[2020-12-31] MEDS: HYDROcodone-acetaminophen 5-325 mg Tablet 1 TAB PO ×2 (16:03→23:00)
[2020-12-31] MEDS: lactated ringers 1,000 ML 75 ML IV (16:05)
[2020-12-31] MEDS: allopurinol 300 mg Tablet 150 MG PO (17:58)
[2020-12-31] MEDS: metoclopramide 10 mg Tablet 5 MG PO (17:59)
[2020-12-31] MEDS: docusate sodium 100 mg Capsule PO (18:05)
[2020-12-31] MEDS: polyethylene glycol 3350 Pkt 17 gm PO (20:57)
[2021-01-01] VITALS: BP 145/69; PULSE 64; RESP 17; TEMP 37.2; O2SAT 95
[2021-01-01 03:34] VITALS: BP 162/81; PULSE 67; RESP 20; TEMP 37; O2SAT 96
[2021-01-01] MEDS: lactated ringers 1,000 ML 75 ML IV (04:26)
[2021-01-01] MEDS: metoprolol tartrate 50 mg Tablet 100 MG PO (04:27)
[2021-01-01] MEDS: HYDROcodone-acetaminophen 5-325 mg Tablet 1 TAB PO (04:28)
[2021-01-01] MEDS: isosorbide mononitrate ER 60 mg Tablet 30 MG PO (05:42)
[2021-01-01] MEDS: amlodipine 5 mg Tablet PO (05:42)
--- NOTE | 2021-01-01 05:46 | PC.NURSE ---
SHIFT SUMMARY Has had a good night. Received po Hydrocodone for c/o pain in left upper chest pacemaker incision site. Has also had c/o of his normal arthritic pain. Pacemaker dressing removed this am with pacemaker check done. Telfa replaced over site. Report called and faxed from [facility] with good working of Pacemaker reported. IV infusing at 75ml/hr rate and is receiving IV antibiotics as ordered postop. Says he should get to go home today. Immmobilizer has been in place to left arm throughout night. Urinating and taking po fluids well
[2021-01-01 06:00] VITALS: PULSE 60
--- NOTE | 2021-01-01 07:08 | P.DS_ITS ---
Discharge Providers Date of Admission: 12/31/20 14:12 Date of Discharge: January 01, 2021 Attending Provider at Admission: Familia Kirkland MD Attending Provider at Discharge: Familia Kirkland MD Primary Care Provider: Raymond Reddy MD Diagnoses at Discharge Discharge Diagnosis (1) Ischemic cardiomyopathy: Status: Acute Permanent problem details: History of 16 stents Reason for Visit Reason for Visit: Cardiomyopathy Hospital Course Hospital Course Mr. Wu is an 80-year-old gentleman with ischemic cardiomyopathy and prior history for numerous PCI's and a history of myocardial infarction's. Due to his medically refractory cardiomyopathy, AICD implantation was recommended by Dr. Sherman. Mr. Wu is electively admitted on December 31 and underwent 2-lead AICD implantation. Postoperatively, he convalesced on the lainez we continue to do well. Only modest postoperative discomfort. His biggest complaint has been arthritic pain. Surgical site is clean and dry. Surgical dressing was removed and postoperative dressing was applied. Postoperative interrogation reveals appropriate system functioning. He will be discharged home today with limit tach activities. He will be scheduled [facility] in 1 week. At the time of discharge, he is in stable condition. Physical Exam Chest: OTHER: Surgical site is clean and dry. Surgical dressing was replaced with a postoperative dressing. No drainage or evidence for fluid collection. No erythema. Resp: COMMON NORMALS: normal respiratory effort and No use of accessory muscles EFFORT & INSPECTION: Yes able to speak in complete sentences Cardio: COMMON NORMALS: regular rate and regular rhythm RATE: regular rate RHYTHM: regular rhythm Extremity: COMMON NORMALS: no clubbing, cyanosis or edema Discharge Data Data Completed and Pending: Completed Studies During Hospitalization Category Date Time Status XR chest 1V estefanía ble 17006 Routine Exams 12/31/20 14:44 Completed XR chest 2V* 7104 6 Routine Exams 12/31/20 10:40 Completed Vitals: Last Vital Signs Temp 98.6 F 01/01/21 03:34 Pulse 60 01/01/21 06:00 Resp 20 H 01/01/21 03:34 BP 162/81 01/01/21 03:34 Pulse Ox 96 01/01/21 03:34 Discharge Plan Discharge Patient Disposition: Home Condition: Stable Prescriptions: New hydrocodone-acetaminophen 5-325 mg Tablet 1 tab PO Q6H PRN (Reason: Moderate To Severe Pain) Qty: 15 RF: 0 sulfamethoxazole-trimethoprim [Bactrim DS] 800-160 mg tablet 1 tab PO DAILY 5 Days Qty: 10 RF: 0 Continued (DME) wheeled walker See Rx Instructions .Route .MEDSUPPLY Qty: 1 RF: 0 fentanyl 50 mcg/hr patch 72 hour 50 mcg topical Q72H 30 Days Qty: 10 RF: 0 hydrocodone-acetaminophen 5-325 mg tablet 1 tab PO Q8H PRN (Reason: Pain) 30 Days Qty: 60 RF: 0 ascorbic acid (vitamin C) 500 mg tablet extended release 500 mg PO BID@06,17 RF: 0 omega-3 fatty acids [Fish Oil Concentrate] 1,000 mg capsule 1,000 mg PO DAILY@06 RF: 0 meloxicam 15 mg tablet 15 mg PO DAILY RF: 0 (DME) CPAP See Rx Instructions .Route .MEDSUPPLY Qty: 1 RF: 0 Entresto 97-103 mg tablet 1 tab PO BID Qty: 180 RF: 3 metoclopramide HCl [Reglan] 5 mg tablet 5 mg PO BID Qty: 30 RF: 3 polyethylene glycol 3350 [Miralax] 17 gram/dose powder 17 gm PO BEDTIME RF: 0 latanoprost 0.005 % drops 1 drp ophthalmic (eye) QAM RF: 0 brimonidine 0.2 % drops 1 drp ophthalmic (eye) BID@06,17 RF: 0 vitamin E 400 unit Capsule 400 unit PO BID RF: 0 atorvastatin 80 mg tablet 80 mg PO DAILY@1700 RF: 0 clopidogrel 75 mg tablet 75 mg PO DAILY@0600 RF: 0 nitroglycerin 0.4 mg tablet, sublingual 0.4 mg sublingual Q5M MDD 3 tabs PRN (Reason: Chest Pain) RF: 0 ezetimibe 10 mg tablet 10 mg PO DAILY@0600 RF: 0 allopurinol 300 mg tablet 150 mg PO BID RF: 0 amlodipine 5 mg tablet 5 mg PO QAM RF: 0 isosorbide mononitrate 60 mg tablet extended release 24 hr 30 mg PO DAILY@0600 RF: 0 potassium chloride 20 mEq tablet,ER particles/crystals 20 meq PO QAM RF: 0 pantoprazole 40 mg tablet,delayed release (DR/EC) 40 mg PO QAM RF: 0 Eliquis 5 mg tablet 5 mg PO BID RF: 0 digoxin 125 mcg (0.125 mg) Tablet 125 mcg PO DAILY 30 Days Qty: 30 RF: 1 furosemide 40 mg tablet 40 mg PO DAILY 30 Days Qty: 30 RF: 0 metoprolol tartrate 50 mg tablet 100 mg PO Q12H 30 Days Qty: 60 RF: 1 Discharge Orders: Discharge Order (Routine); Ordered 01/01/21 Ordered By: Familia Kirkland Referrals: [facility] [Provider Group] - 1 week (Pacemaker Clinic) Discharge Diet: Usual diet Discharge Activity: Limit activity as instructed Patient Instructions: Opioid Safety Activity Restrictions/Additional Instructions: May remove bandage in 2 days No swimming or tub baths x2 weeks May begin shower in 4 days Do not raise left arm above eye level for 1 week No heavy lifting or pulling x2 weeks Report any redness, increasing pain, drainage, or fever. Take antibiotic as prescribed until complete Please call clinic for any concerns. Discharge Attestations Time Spent in Discharge Care*: less than 30 min Specific Discharge Activities: educating patient, discussing with high risk case manager/social workers/dc planners, documenting/other paperwork and evaluating patient/reviewing data Status at Discharge: Cognitive status at discharge: cognitively intact , Behavioral status at discharge: cooperative and independent in ADL's , Overall status at discharge: patient is progressing back to baseline Quality Metrics Clinical Quality Measures During this hospital stay, did patient experience: None Coding Level of Care Code Acute Chg FW DC note Exam Expanded Problem Focused Diagnoses Ischemic cardiomyopathy I25.5
[2021-01-01 07:45] VITALS: BP 134/70; PULSE 58; RESP 16; TEMP 36.9; O2SAT 95
[2021-01-01] MEDS: pantoprazole DR 40 mg Tablet PO (08:46)
[2021-01-01] MEDS: FUROsemide 40 mg Tablet PO (08:46)
[2021-01-01] MEDS: allopurinol 300 mg Tablet 150 MG PO (08:47)
[2021-01-01] MEDS: metoclopramide 10 mg Tablet 5 MG PO (08:47)
[2021-01-01 08:49] VITALS: PULSE 64
[2021-01-01] MEDS: digoxin 125 mcg Tablet PO (08:49)
--- NOTE | 2021-01-01 10:00 | PC.NURSE ---
IV removed intact. Patient tolerated well. Patient is A&Ox3. Respirations even and non-labored on room air. Reviewed discharge instructions with patient and . Patient and verbalized understanding of discharge instructions and follow up appointments. IT was discussed with patient and that the prescription antibiotic Bactrim should be taken twice a day for 5 days. One in the morning and one in the evening. Patient and verbalized understanding. Patient wheel chaired to private car.
--- NOTE | 2021-01-01 10:17 | PC.NURSE ---
THIS NURSE CONTACTED PATIENT PHARMACY AND CLARIFIED BACTRIM ORDER SHOULD READ BID INSTEAD OF DAILY.
[2021-01-01 10:43] VITALS: BP 134/70; PULSE 64; RESP 16; TEMP 36.8; O2SAT 96
== END 2021-01-01 10:00 | disposition home or self-care (01) ==
LOC: MEDSURG 14:12
PROVIDERS: Admitting Provider Thoracic Surgery (Cardiothoracic Vascular Surgery); PCP Internal Medicine; Visit Provider Thoracic Surgery (Cardiothoracic Vascular Surgery)
PROC: 0JH608Z Insertion of Defibrillator Generator into Chest Subcutaneous Tissue and Fascia, Open Approach (ICD-10-PCS; CPT 33249; principal; 2020-12-31 12:10)
DX: I25.5 Ischemic cardiomyopathy (principal); I25.119 Atherosclerotic heart disease of native coronary artery with unspecified angina pectoris; I11.0 Hypertensive heart disease with heart failure; I50.23 Acute on chronic systolic (congestive) heart failure; I48.91 Unspecified atrial fibrillation; I12.9 Hypertensive chronic kidney disease with stage 1 through stage 4 chronic kidney disease, or unspecified chronic kidney disease; N18.9 Chronic kidney disease, unspecified; E78.5 Hyperlipidemia, unspecified; K21.9 Gastro-esophageal reflux disease without esophagitis; I25.2 Old myocardial infarction; Z79.01 Long term (current) use of anticoagulants; Z79.891 Long term (current) use of opiate analgesic; Z87.891 Personal history of nicotine dependence
CPT/HCPCS: 33249; 71045; 71046; 76000; 80048; 81001; 85025; C1721; C1777; C1779; G0378; J0690; J2250; J2370; J2704; J3010; J3490; J7030; J8597

== ENCOUNTER → 2021-02-19 08:35 | Outpatient (BNVA) | payer MEDICARE, SELFPAY | PROVIDERS: PCP Internal Medicine; Visit Provider Internal Medicine Cardiovascular Disease | DX: R06.00 Dyspnea, unspecified (principal); I25.119 Atherosclerotic heart disease of native coronary artery with unspecified angina pectoris; I10 Essential (primary) hypertension; E78.5 Hyperlipidemia, unspecified; T46.0X1A Poisoning by cardiac-stimulant glycosides and drugs of similar action, accidental (unintentional), initial encounter | CPT/HCPCS: 80048; 80061; 80076; 80162; 83880; 85025 ==

== ENCOUNTER → 2021-03-13 08:01 | Outpatient (BNVA) | payer MEDICARE, SELFPAY | PROVIDERS: PCP Internal Medicine; Visit Provider Specialist | DX: M67.432 Ganglion, left wrist (principal) | CPT/HCPCS: 73110 ==

== ENCOUNTER 2021-04-26 08:35 | Outpatient (CLI) | payer MEDICARE, SELFPAY ==
--- NOTE | 2021-04-26 08:30 | US_ITS ---
WS: [id number] Complete pelvis ultrasound. HISTORY: 81-year-old male possible bladder mass. COMPARISON: 11/27/2020. Moderately distended urinary bladder. Mild diffuse bladder wall thickening may be due to mild underdi stention. No focal mass. Prostate gland has been removed. No intraluminal mass identified. There is n o increased vascularity in the mildly thickened bladder wall. Fecal material in the rectum is noted p osteriorly. No free fluid. US/US pelvic complete* [id number] IMPRESSION: Moderately distended bladder with mild diffuse thickening of the bladder wall w hich is probably due to the underdistention. No bladder mass identified.
== END 2021-04-26 08:36 | disposition home or self-care (01) ==
PROVIDERS: PCP Internal Medicine; Visit Provider Urology
DX: R19.00 Intra-abdominal and pelvic swelling, mass and lump, unspecified site (principal)
CPT/HCPCS: 76856; 81003

== ENCOUNTER → 2021-05-23 15:49 | Outpatient (BNVA) | payer MEDICARE, SELFPAY | PROVIDERS: PCP Internal Medicine; Visit Provider Internal Medicine | DX: R54 Age-related physical debility (principal); I48.91 Unspecified atrial fibrillation; R53.1 Weakness; I25.5 Ischemic cardiomyopathy | CPT/HCPCS: 80053; 84443; 85025; 85651; 86140 ==

== ENCOUNTER 2021-05-24 10:14 | Emergency (ER) | payer MEDICARE, SELFPAY ==
[2021-05-24 10:21] VITALS: BP 132/86; PULSE 75; RESP 24; O2SAT 98; BMI 24.3
--- NOTE | 2021-05-24 10:53 | ECG_ITS ---
[facility] Test Date: 2021-05-24 Pat Name: Stanislav Wu Department: Room: Gender: Male Hvac Service Tech: : 1940 Requested By: Zach Pryor Order Number: [id number] Patrica MD: Red Sherman M.D. Measurements Intervals [place] Rate: 71 P: [place]: QRS: -64 QRSD: 99 T: 120 QT: 388 QTc: 422 Interpretive Statements ATRIAL FIBRILLATION ANTERIOR MYOCARDIAL INFARCTION , OF INDETERMINATE AGE [40+ ms Q WAVE AND/OR ST/T ABNORMALITY IN V3/V4] INFERIOR MYOCARDIAL INFARCTION , PROBABLY OLD [40+ ms Q WAVE AND/OR ST/T ABNORMALITY IN II/aVF] Compared to ECG 11/10/2020 17:33:36 No significant changes Electronically Signed On 05-24-2021 13:40:28 CDT by Red Sherman M.D. [id number]
--- NOTE | 2021-05-24 10:53 | XR_ITS ---
WS: [id number] Exam: XR chest 1V portable [id number] Date/Time of Exam: 05/24/2021 10:56 AM Reason For Exam: sob There is increased density in the left retrocardiac region suspicious for left lower lobe infiltrate. Remaining lung choi are clear. Heart enlarged. Signs of coronary artery stenting. A permanent card iac pacer superimposes the left chest. Left humeral head prosthesis noted. Regional bony elements are intact. Moderate DJD of the right shoulder. XR/XR chest 1V portable [id number] IMPRESSION: 1. Increased density in the left retrocardiac region suspicious for left lower lobe infiltrate and/or atelectasis. 2. Cardiac enlargement.
--- NOTE | 2021-05-24 10:55 | W.ED.SOB ---
HPI - SOB/Dyspnea General: Chief Complaint: Shortness of Breath/Dyspnea Stated Complaint: Difficulty breathing Time Seen by Provider: 05/24/21 10:29 History of Present Illness: HPI Narrative: Patient comes in with dyspnea on exertion that he states is been going on for a few months, but is gotten worse over the last few days. States he cannot get up and walk across the room without feeling short of breath. Denies any cold symptoms including no headache, vomiting, fever, cough, chest pain. Associated symptoms: Deny abdominal pain, chest pain, fever(s), nausea, palpitations, polyuria or vomiting Review of Systems Const: Denies: fever(s) or body aches Eyes: Denies: change in vision or blurry vision ENMT: Denies: throat pain or odynophagia Card: Denies: chest pain or palpitations Resp: Denies: dyspnea or productive cough GI: Denies: abdominal pain, nausea or vomiting : Denies: flank pain or dysuria Musc: Reports: other (1+ pitting edema bilateral lower extremities); Denies: neck pain or back pain Skin/Breast: Denies: rash or pruritus Neuro: Denies: headache(s) or numbness in extremities Psych: Denies: anxiety or change in appetite Endo: Denies: polyuria or excessive sweating PFSH ED PFSH: Medical History (Updated 05/24/21 @ 13:40 by Zach Pryor MD) Acute exacerbation of CHF (congestive heart failure) Acute on chronic systolic heart failure, NYHA class 4 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 LV systolic function is moderately reduced with EF of 35 to 40%. There is severe hypokinesis of anterior and apical peña. Diastolic function is indeterminate because of atrial fibrillation. There is mild to moderate mitral regurgitation. Mild aortic regurgitation is seen. Mild pulmonic regurgitation is present. RVSP is 45 to 50 mmHg consistent with moderate pulmonary hypertension. Compared to prior study from 06/30/2018, LV systolic function is now further decreased to 35 to 40%. Atherosclerotic heart disease of [place] coronary artery without angina pectoris Atrial fibrillation Atrial fibrillation with RVR Benign essential hypertension with target blood pressure below 140/90 Cardiac arrest High risk for any kind of surgical intervention, because of history of cardiac arrest with general anesthesia Cardiac LV ejection fraction >40% Chronic kidney disease Congestive heart failure Dyslipidemia (high LDL; low HDL) Erectile dysfunction Essential (primary) hypertension GERD (gastroesophageal reflux disease) Gout Hiatal hernia History of prostate cancer Hx of angiography Ischemic cardiomyopathy History of 16 stents Ischemic cardiomyopathy Mediastinal adenopathy Mitral valve regurgitation Osteoarthritis VENU (stress urinary incontinence), male Surgical History AICD (automatic cardioverter/defibrillator) present History of appendectomy History of carpal tunnel release RIGHT June 22, 2015, Dr. Oliveira History of hemorrhoidectomy History of inguinal hernia repair History of left hip replacement History of left shoulder replacement History of prostatectomy S/P PTCA (percutaneous transluminal coronary angioplasty) Family History Brother CAD (coronary artery disease) Diabetes Heart disease Father CAD (coronary artery disease) Heart disease Sister CAD (coronary artery disease) Cancer Diabetes Heart disease Mother Diabetes Stroke Grandmother Diabetes Denies family history of Clotting disorder Dementia Chronic kidney disease (CKD) Suicide Anesthesia complication Bleeding disorder Lung disease Social History Smoking and tobacco status: former smoker Alcohol intake: never Marital status: Current occupational status: retired History of recent travel: No Physical Exam Const: COMMON NORMALS: no acute distress, patient oriented x3, healthy appearing and alert HENMT: COMMON NORMALS: normocephalic and atraumatic HEAD & SCALP: normocephalic and atraumatic Eye: COMMON NORMALS: Equal, round and reactive pupils present and EOMs intact bilaterally PUPIL: Yes Equal, round and reactive pupils present Neck/C-Spine: COMMON NORMALS: full ROM and supple Resp: COMMON NORMALS: normal respiratory effort, No retractions and No use of accessory muscles Cardio: COMMON NORMALS: regular rate and regular rhythm RATE: regular rate RHYTHM: regular rhythm GI: COMMON NORMALS: Normal to inspection, nondistended, normoactive bowel sounds present, Soft to palpation and non-tender PALPATION: Yes Soft to palpation Back/Pelvis: COMMON NORMALS: thoracic and lumbar spine normal to inspection and no thoracic nor lumbar tenderness Extremity: COMMON NORMALS: normal to inspection and full ROM OTHER: 1+ pitting edema of bilateral lower extremities Neuro: COMMON NORMALS: patient oriented x3 SENSORIUM/ORIENTATION: Yes alert Psych: COMMON NORMALS: mental status grossly normal and cooperative Skin: COMMON NORMALS: no rashes or lesions noted and no wounds GENERAL SKIN EXAM: no rashes or lesions noted Course Vital Signs: Vital signs: Vital Signs Pulse Rate 75 05/24/21 10:21 Respiratory Rate 24 H 05/24/21 10:21 Blood Pressure 132/86 05/24/21 10:21 Pulse Oximetry 98 05/24/21 10:21 MDM - SOB/Dyspnea Medical Decision Making Patient comes in with dyspnea on exertion that he states is been going on for a few months, but is gotten worse over the last few days. States he cannot get up and walk across the room without feeling short of breath. Denies any cold symptoms including no headache, vomiting, fever, cough, chest pain. On physical exam he has 1+ pitting edema bilateral lower extremities. His lungs are clear to auscultation. Will check labs, x-ray, EKG, and reassess. On reassessment I talked to the patient about the test results. We will have him take his furosemide twice a day for the next 3 days and follow-up with his primary care physician as needed. Will discharge at this time with precautions to return for worsening or changing symptoms. Lab Data : 05/24/21 10:43 05/24/21 10:43 Labs/Radiology: Radiology Impressions Chest X-Ray 05/24/21 10:53 IMPRESSION: 1. Increased density in the left retrocardiac region suspicious for left lower lobe infiltrate and/or atelectasis. 2. Cardiac enlargement. Laboratory Results WBC 8.1 10^3/uL (4.0-10.0) 05/24/21 10:43 RBC 4.34 10^6/uL (4.1-5.3) 05/24/21 10:43 Hgb 12.2 g/dL (11.7-16.6) 05/24/21 10:43 Hct 38.1 % (42.0-52.0) L 05/24/21 10:43 MCV 87.8 fl (80-94) 05/24/21 10:43 MCH 28.1 pg (28.0-34.0) 05/24/21 10:43 MCHC 32.0 g/dL (30.0-36.0) 05/24/21 10:43 RDW 14.7 % (12.1-15.1) 05/24/21 10:43 Plt Count 192 10^3/cmm (130-400) 05/24/21 10:43 MPV 10.7 fL (7.4-10.4) H 05/24/21 10:43 Neut % (Auto) 80.5 % 05/24/21 10:43 Lymph % (Auto) 10.3 % 05/24/21 10:43 Hanson % (Auto) 7.3 % 05/24/21 10:43 Eos % (Auto) 1.1 % 05/24/21 10:43 Baso % (Auto) 0.7 % 05/24/21 10:43 Neut # (Auto) 6.49 10^3/uL (1.8-7.7) 05/24/21 10:43 Lymph # (Auto) 0.8 10^3/uL (0.8-4.8) 05/24/21 10:43 Hanson # (Auto) 0.6 10^3/uL (0.2-0.9) 05/24/21 10:43 Eos # (Auto) 0.1 10^3/uL (0.0-0.8) 05/24/21 10:43 Baso # (Auto) 0.1 10^3/uL (0.0-0.1) 05/24/21 10:43 Nucleated RBC % (auto) 0 % 05/24/21 10:43 Nucleated RBCs # 0.0 /100WBC 05/24/21 10:43 Sodium 136 mmol/L (136-145) 05/24/21 10:43 Potassium 4.0 mmol/L (3.5-5.1) 05/24/21 10:43 Chloride 104 mmol/L (98-107) 05/24/21 10:43 Carbon Dioxide 23 mmol/L (22-29) 05/24/21 10:43 Anion Gap 13.0 (5-19) 05/24/21 10:43 BUN 18 mg/dL (8-23) 05/24/21 10:43 Creatinine 1.1 mg/dL (0.7-1.2) 05/24/21 10:43 GFR Calculation Not Reportable 05/24/21 10:43 Glucose 117 mg/dL (65-115) H 05/24/21 10:43 Calculated Osmolality 285 mOsm/kg (285-295) 05/24/21 10:43 Calcium 9.2 mg/dL (8.5-10.5) 05/24/21 10:43 Total Bilirubin 1.0 mg/dL (0.15-1.2) 05/24/21 10:43 AST 24 U/L (0-40) 05/24/21 10:43 ALT 20 U/L (0-41) 05/24/21 10:43 Alkaline Phosphatase 98 IU/L (40-130) 05/24/21 10:43 Troponin T Baseline 53 ng/L (0-15) H 05/24/21 10:43 Troponin T 120 Minute 42.87 ng/L (0-15) H 05/24/21 12:47 Delta Troponin T -10.13 ABS# (0-10) L 05/24/21 12:47 NT-Pro-B Natriuret Pep 01786 pg/mL (0-450) H 05/24/21 10:43 Total Protein 6.0 g/dL (6.6-8.7) L 05/24/21 10:43 Albumin 3.9 g/dL (3.5-5.2) 05/24/21 10:43 Globulin 2.1 g/dL (1.3-4.6) 05/24/21 10:43 Discharge Plan Discharge Patient Disposition: Home Clinical Impression: Acute exacerbation of CHF (congestive heart failure) Condition: Stable Prescriptions: No Action (DME) vi walker See Rx Instructions .Route .MEDSUPPLY Qty: 1 0RF Rx Instructions: As directed ascorbic acid (vitamin C) 500 mg tablet extended release 500 mg PO BID@06,17 0RF omega-3 fatty acids [Fish Oil Concentrate] 1,000 mg capsule 1,000 mg PO DAILY@06 0RF meloxicam 15 mg tablet 15 mg PO DAILY 0RF fentanyl 50 mcg/hr patch 72 hour 50 mcg topical Q72H 30 Days Qty: 10 0RF hydrocodone-acetaminophen 5-325 mg tablet 1 tab PO Q8H PRN (Reason: Pain) 30 Days Qty: 60 0RF pantoprazole 40 mg tablet,delayed release (DR/EC) 40 mg PO QAM Qty: 90 3RF digoxin 125 mcg (0.125 mg) tablet 125 mcg PO DAILY Qty: 90 3RF nitroglycerin 0.4 mg tablet, sublingual 0.4 mg sublingual Q5M MDD 3 tabs PRN (Reason: Chest Pain) Qty: 25 3RF Entresto 97-103 mg tablet 1 tab PO BID Qty: 10 0RF metoclopramide HCl [Reglan] 5 mg tablet 5 mg PO BID Qty: 30 3RF Eliquis 5 mg tablet 5 mg PO BID Qty: 60 0RF latanoprost 0.005 % drops 1 drp ophthalmic (eye) QAM 0RF Rx Instructions: (both eyes) brimonidine 0.2 % drops 1 drp ophthalmic (eye) BID@06,17 0RF vitamin E 400 unit Capsule 400 unit PO BID 0RF clopidogrel 75 mg tablet 75 mg PO DAILY@0600 0RF ezetimibe 10 mg tablet 10 mg PO DAILY@0600 0RF atorvastatin 80 mg tablet 40 mg PO DAILY 0RF allopurinol 300 mg tablet 300 mg PO DAILY 0RF amlodipine 5 mg tablet 5 mg PO QAM 0RF potassium chloride 20 mEq tablet,ER particles/crystals 20 meq PO QAM 0RF furosemide 40 mg tablet 40 mg PO QAM 0RF isosorbide mononitrate 60 mg tablet extended release 24 hr 90 mg PO DAILY@0600 0RF metoprolol tartrate 50 mg tablet 50 mg PO BID 0RF Discharge Orders: Discharge ED (Routine); Ordered 05/24/21 Ordered By: Zach Pryor Referrals: Raymond Reddy MD [Primary Care Provider] - Patient Instructions: Heart Failure (ED) Activity Restrictions/Additional Instructions: Take your furosemide (water pill) twice a day for the next three days. Coding Level of Care Code ED Bilingual Trainer for Chg Fwd Exam Comprehensive
[2021-05-24 11:06] LABS: Basophils # 0.1 10^3/uL (0.0-0.1); Basophils % 0.7 %; Eosinophils # 0.1 10^3/uL (0.0-0.8); Eosinophils % 1.1 %; Hematocrit 38.1 % (42.0-52.0); Hemoglobin 12.2 g/dL (11.7-16.6); Lymphocytes # 0.8 10^3/uL (0.8-4.8); Lymphocytes % 10.3 %; Mean Corpuscular Hemoglobin 28.1 pg (28.0-34.0); Mean Corpuscular Volume 87.8 fl (80-94); Mean Platelet Volume 10.7 fL (7.4-10.4); Monocytes # 0.6 10^3/uL (0.2-0.9); Monocytes % 7.3 %; Neutrophils # 6.49 10^3/uL (1.8-7.7); Neutrophils % 80.5 %; Nucleated Red Blood Cells % 0 %; Platelet Count 192 10^3/cmm (130-400); Red Blood Count 4.34 10^6/uL (4.1-5.3); Red Cell Distribution Width 14.7 % (12.1-15.1); White Blood Count 8.1 10^3/uL (4.0-10.0)
[2021-05-24] MEDS: aspirin 325 mg Tablet PO (11:19)
[2021-05-24 11:31] LABS: Troponin(5th) Baseline 53 ng/L (0-15)
--- NOTE | 2021-05-24 11:31 | PC.PHAR ---
Addendum entered by Roz Hemphill 05/24/21 11:39: pt not taking valsartan 80mg or spironolactone 25mg Original Note: pt states he takes care of his own medications-pt states he is unsure if he takes allopurinol 1/2 tabs or a whole tab daily rx filled 300mg daily on 03/23/21 90d/s -notes are made in the pharmacy comments
[2021-05-24 11:40] LABS: Alanine Aminotransferase 20 U/L (0-41); Albumin Level 3.9 g/dL (3.5-5.2); Alkaline Phosphatase 98 IU/L (40-130); Aspartate Amino Transferase 24 U/L (0-40); Blood Urea Nitrogen 18 mg/dL (8-23); Calcium 9.2 mg/dL (8.5-10.5); Carbon Dioxide 23 mmol/L (22-29); Chloride 104 mmol/L (98-107); Creatinine Clr Calc Pharmacy 52.9889; Globulin 2.1 g/dL (1.3-4.6); Glucose 117 mg/dL (65-115); NT Pro B Type Natriuretic Pept 14026 pg/mL (0-450); Osmolality Calculated 285 mOsm/kg (285-295); Sodium 136 mmol/L (136-145)
[2021-05-24 13:27] LABS: Troponin 5 2HR 42.87 ng/L (0-15)
--- NOTE | 2021-05-24 15:07 | ECG_ITS ---
[facility] Test Date: 2021-05-24 Pat Name: Stanislav Wu Department: Room: Gender: Male Zyglo Technician: : 1940 Requested By: Zach Pryor Order Number: [id number] Patrica MD: Red Sherman M.D. Measurements Intervals [place] Rate: 76 P: [place]: QRS: -67 QRSD: 104 T: 96 QT: 387 QTc: 435 Interpretive Statements ATRIAL FIBRILLATION LEFT ANTERIOR FASCICULAR BLOCK [QRS AXIS <= -45, QR IN I, RS IN II] ANTERIOR MYOCARDIAL INFARCTION , OF INDETERMINATE AGE [40+ ms Q WAVE AND/OR ST/T ABNORMALITY IN V3/V4] INFERIOR MYOCARDIAL INFARCTION , PROBABLY OLD [40+ ms Q WAVE AND/OR ST/T ABNORMALITY IN II/aVF] Compared to ECG 05/24/2021 11:02:50 Left anterior fascicular block now present Myocardial infarct finding still present Electronically Signed On 05-24-2021 17:18:31 CDT by Red Sherman M.D. [id number] ray
== END 2021-05-24 14:05 | disposition home or self-care (01) ==
PROVIDERS: Emergency Provider Emergency Medicine; PCP Internal Medicine
DX: I13.0 Hypertensive heart and chronic kidney disease with heart failure and stage 1 through stage 4 chronic kidney disease, or unspecified chronic kidney disease (principal); I50.21 Acute systolic (congestive) heart failure; N18.9 Chronic kidney disease, unspecified; Z87.891 Personal history of nicotine dependence; Z79.891 Long term (current) use of opiate analgesic; Z79.01 Long term (current) use of anticoagulants; Z79.02 Long term (current) use of antithrombotics/antiplatelets
CPT/HCPCS: 36415; 71045; 80053; 83880; 84484; 85025; 93005; 99283

== ENCOUNTER → 2021-06-07 11:01 | Outpatient (BNVA) | payer MEDICARE, SELFPAY | PROVIDERS: PCP Internal Medicine; Visit Provider Internal Medicine Cardiovascular Disease | DX: Z45.02 Encounter for adjustment and management of automatic implantable cardiac defibrillator (principal) | CPT/HCPCS: 93283 ==

== ENCOUNTER → 2021-06-12 09:38 | Outpatient (BNVA) | payer MEDICARE, SELFPAY | PROVIDERS: PCP Internal Medicine; Visit Provider Internal Medicine Cardiovascular Disease | DX: I25.5 Ischemic cardiomyopathy (principal); I13.0 Hypertensive heart and chronic kidney disease with heart failure and stage 1 through stage 4 chronic kidney disease, or unspecified chronic kidney disease; I50.43 Acute on chronic combined systolic (congestive) and diastolic (congestive) heart failure; N18.9 Chronic kidney disease, unspecified; Z87.891 Personal history of nicotine dependence; Z95.810 Presence of automatic (implantable) cardiac defibrillator; I48.91 Unspecified atrial fibrillation; Z79.01 Long term (current) use of anticoagulants; I34.0 Nonrheumatic mitral (valve) insufficiency; I25.119 Atherosclerotic heart disease of native coronary artery with unspecified angina pectoris; E78.5 Hyperlipidemia, unspecified | CPT/HCPCS: 36415; 80048; 83880; 99214 ==

== ENCOUNTER → 2021-07-10 13:52 | Outpatient (BNVA) | payer MEDICARE, SELFPAY | PROVIDERS: PCP Internal Medicine; Visit Provider Specialist | DX: M25.532 Pain in left wrist (principal); M65.332 Trigger finger, left middle finger; M65.322 Trigger finger, left index finger; M65.342 Trigger finger, left ring finger | CPT/HCPCS: 99213 ==

== ENCOUNTER → 2021-08-05 09:00 | Outpatient (BNVA) | payer MEDICARE, SELFPAY | PROVIDERS: PCP Internal Medicine; Visit Provider Nurse Practitioner Family | DX: N30.01 Acute cystitis with hematuria (principal) | CPT/HCPCS: 81003; 87077; 87086; 87184 ==

== ENCOUNTER 2021-08-12 12:57 | Outpatient (CLI) | payer MEDICARE, SELFPAY ==
[2021-08-12] MEDS: barium sulfate 450 mL Oral Susp PO (14:19)
[2021-08-12 14:25] LABS: Blood Urea Nitrogen 25 mg/dL (8-23)
--- NOTE | 2021-08-12 14:30 | CT_ITS ---
WS: [id number] CT ABDOMEN AND PELVIS WITH CONTRAST HISTORY: Left-sided abdominal pain and back pain for one year. TECHNIQUE: Imaging performed of the abdomen and pelvis with IV contrast. Single phase imaging of the abdomen. Coronal and sagittal reformats are submitted. All CT scans at [facility] use at max st one of these dose optimization techniques: automated exposure control; mA and/or kV adjustment per patient size (includes targeted exams where dose is matched to clinical indication); or iterative re construction. IV CONTRAST: Visipaque 320; 95 mL IV. Oral contrast: Yes. DLP: 893.68 mGy.cm COMPARISON: 08/05/2020 Lower thorax: Benign calcified granuloma LEFT lung base. Mild cardiomegaly. Right-sided defibrillator wire. No hiatal hernia. Liver/biliary system: Normal size liver with diffuse hepatic steatosis. No bile duct dilatation. Gallbladder: Normally distended gallbladder with a 2.7 cm stone in the lumen. No acute cholecystitis. No bile duct dilatation. Pancreas: Diffuse pancreatic atrophy. Spleen: Normal size spleen. No mass or infarct. Adrenal glands: Normal. Right kidney: Mild atrophy. No obstruction. Left kidney: Two hyperdense masses which are exophytic from the mid to superior LEFT kidney. Most shah perior mass measures 4.4 x 4.1 cm. Mid renal mass measures 3.6 x 4.0 cm. Neither mass is increased in size since 08/05/2020. On this unenhanced examination from 08/05/2020 these were hyperdense. No renal obstruction. Aorta: Moderate atherosclerosis aorta. No filling defect in the mesenteric arteries. Lymphadenopathy: None. Free fluid: None. GI tract: Marked distention of the stomach with food products and contrast. No small bowel obstructio n. Extensive fecal retention. Prior appendectomy. Abdominal wall: Unremarkable abdominal wall. No hernia. Pelvis: No free fluid or adenopathy within the pelvis. Prior prostatectomy. No mass within the pelvis . There is artifact obscuring portions of the pelvis from the patient's hip arthroplasty. Bones: Advanced degenerative changes throughout both lumbar spine. Prior LEFT hip arthroplasty. No os teoblastic or osteolytic bone disease. CT/CT abdomen pelvis w con* [id number] IMPRESSION: 1. No acute abdominal or pelvic abnormalities are identified. 2. There are 2 hyperdense masses within the LEFT kidney which are unchanged in size since 08/05/2020. Favor these are probably proteinaceous cysts. Consider f ollow-up ultrasound evaluation to further evaluate. 3. Extensive fecal retention throughout the colon with constipation. 4. No free fluid or adenopathy. 5. Atherosclerosis aorta. 6. Cholelithiasis without acute cholecystitis.
[2021-08-12] MEDS: iodixanol 320 mg/mL 100mL Btl IV (14:34)
== END 2021-08-12 12:58 | disposition home or self-care (01) ==
LOC: RAD 12:58
PROVIDERS: Radiology Neuroradiology; PCP Internal Medicine; Visit Provider Internal Medicine
DX: R10.9 Unspecified abdominal pain (principal); I70.0 Atherosclerosis of aorta; K80.20 Calculus of gallbladder without cholecystitis without obstruction
CPT/HCPCS: 74177; 82565; 84520

== ENCOUNTER → 2021-09-06 08:26 | Outpatient (BNVA) | payer MEDICARE, SELFPAY | PROVIDERS: PCP Internal Medicine; Visit Provider Internal Medicine Cardiovascular Disease | DX: Z45.02 Encounter for adjustment and management of automatic implantable cardiac defibrillator (principal) | CPT/HCPCS: 93283 ==

== ENCOUNTER 2021-09-13 22:03 | Emergency (ER) | payer MEDICARE, SELFPAY ==
--- NOTE | 2021-09-13 22:06 | ECG_ITS ---
[facility] Test Date: 2021-09-13 Pat Name: Stanislav Wu Department: Room: Gender: Male Hander In: : 1940 Requested By: Gerri Anton Order Number: [id number] Patrica MD: Rene Hickey M.D. Measurements Intervals [place] Rate: 96 P: [place]: QRS: -67 QRSD: 118 T: 103 QT: 388 QTc: 491 Interpretive Statements ATRIAL FIBRILLATION LEFT ANTERIOR FASCICULAR BLOCK [QRS AXIS <= -45, QR IN I, RS IN II] ANTERIOR MYOCARDIAL INFARCTION , PROBABLY OLD [40+ ms Q WAVE AND/OR ST/T ABNORMALITY IN V3/V4] Compared to ECG 05/24/2021 13:11:06 No significant changes Electronically Signed On 09-13-2021 23:07:12 CDT by Rene Hickey M.D. [email or web address] [email or web address] International[facility].[employer]/store/[id number] f
--- NOTE | 2021-09-13 22:06 | XRR_ITS ---
PROCEDURE INFORMATION: Exam: XR Chest Exam date and time: 09/13/2021 10:23 PM Age: 81 years old Clinical indication: Dyspnea TECHNIQUE: Imaging protocol: Radiologic exam of the chest. Views: 1 view. COMPARISON: CR XR chest 1V portable [id number] 05/24/2021 11:06 AM FINDINGS: Tubes, catheters and devices: There is a dual-lead cardiac pacer via left subclavian approach. Findings are stable. Lungs: Lungs are clear bilaterally. Pleural spaces: No pleural effusion. No pneumothorax. Heart/Mediastinum: Stable moderate enlargement of the cardiac silhouette. Mediastinal contours are unremarkable. Vasculature: Stable vascular calcifications in the aorta. Bones/joints: Unremarkable for age. XR/XR chest 1V portable [id number] IMPRESSION: 1. No acute cardiopulmonary process. 2. Incidental/nonacute findings are listed in the report.
[2021-09-13 22:09] VITALS: BP 129/80; PULSE 96; RESP 18; O2SAT 99; BMI 23.1
--- NOTE | 2021-09-13 22:21 | ED_ITS ---
HPI - SOB/Dyspnea General: Chief Complaint: Shortness of Breath/Dyspnea Stated Complaint: SOB Time Seen by Provider: 09/13/21 22:06 Source: patient and EMS Mode of arrival: EMS Limitations: no limitations History of Present Illness: HPI Narrative: 81-year-old male states that over the last 2 days he has had episodes where he is felt quite nauseous. States that tonight he had another period of feeling nauseous along with some shortness of breath. States he has felt like he is going to pass out. He denies any pain anywhere denies any chest pain denies any headache states he feels improved currently besides still having some nausea he denies any vomiting or diarrhea. Associated symptoms: Deny abdominal pain, chest pain, fever(s), nausea or vomiting Review of Systems Const: Denies: fever(s), chills, body aches or change in appetite Eyes: Denies: blurry vision or eye discomfort ENMT: Denies: throat pain or dental pain Card: Denies: chest pain Resp: Reports: dyspnea GI: Denies: abdominal pain, nausea, vomiting or diarrhea : Denies: dysuria Musc: Denies: neck pain or back pain Skin/Breast: Denies: rash Neuro: Reports: weakness in extremities Psych: Denies: depression Britton/Lymph: Denies: easy bruising All/Imm: Denies: urticaria PFSH ED PFSH: Medical History Acute exacerbation of CHF (congestive heart failure) Acute on chronic systolic heart failure, NYHA class 4 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 LV systolic function is moderately reduced with EF of 35 to 40%. There is severe hypokinesis of anterior and apical peña. Diastolic function is indeterminate because of atrial fibrillation. There is mild to moderate mitral regurgitation. Mild aortic regurgitation is seen. Mild pulmonic regurgitation is present. RVSP is 45 to 50 mmHg consistent with moderate pulmonary hypertension. Compared to prior study from 06/30/2018, LV systolic function is now further decreased to 35 to 40%. Atherosclerotic heart disease of [place] coronary artery without angina pectoris Atrial fibrillation Atrial fibrillation with RVR Benign essential hypertension with target blood pressure below 140/90 Cardiac arrest High risk for any kind of surgical intervention, because of history of cardiac arrest with general anesthesia Cardiac LV ejection fraction >40% Chronic kidney disease Congestive heart failure Dyslipidemia (high LDL; low HDL) Erectile dysfunction Essential (primary) hypertension GERD (gastroesophageal reflux disease) Gout Hiatal hernia History of prostate cancer Hx of angiography Ischemic cardiomyopathy History of 16 stents Ischemic cardiomyopathy Mediastinal adenopathy Mitral valve regurgitation Osteoarthritis VENU (stress urinary incontinence), male Surgical History AICD (automatic cardioverter/defibrillator) present History of appendectomy History of carpal tunnel release RIGHT June 22, 2015, Dr. Oliveira History of hemorrhoidectomy History of inguinal hernia repair History of left hip replacement History of left shoulder replacement History of prostatectomy S/P PTCA (percutaneous transluminal coronary angioplasty) Family History Brother CAD (coronary artery disease) Diabetes Heart disease Father CAD (coronary artery disease) Heart disease Sister CAD (coronary artery disease) Cancer Diabetes Heart disease Mother Diabetes Stroke Grandmother Diabetes Denies family history of Clotting disorder Dementia Chronic kidney disease (CKD) Suicide Anesthesia complication Bleeding disorder Lung disease Social History Smoking and tobacco status: former smoker Alcohol intake: never Marital status: Current occupational status: retired History of recent travel: No Course Vital Signs: Vital signs: Vital Signs Pulse Rate 94 09/14/21 00:54 Respiratory Rate 18 09/14/21 00:54 Blood Pressure 129/80 09/13/21 22:09 Pulse Oximetry 94 09/14/21 00:54 MDM - SOB/Dyspnea Medical Decision Making Patient presents here with some nausea along with shortness of breath he feels much improved here after Zofran patient's blood work here is normal. He does have an elevated BNP is at his baseline with his CHF did give him Lasix he has no signs of fluid overload on his x-ray he is stable for discharge is to follow- up with PCP and return if worsening. Lab Data : 09/13/21 21:48 09/13/21 21:48 Labs/Radiology: Radiology Impressions Chest X-Ray 09/13/21 22:06 IMPRESSION: 1. No acute cardiopulmonary process. 2. Incidental/nonacute findings are listed in the report. Laboratory Results WBC 9.5 10^3/uL (4.0-10.0) 09/13/21 21:48 RBC 5.86 10^6/uL (4.1-5.3) H 09/13/21 21:48 Hgb 15.6 g/dL (11.7-16.6) 09/13/21 21:48 Hct 49.2 % (42.0-52.0) 09/13/21 21:48 MCV 84.0 fl (80-94) 09/13/21 21:48 MCH 26.6 pg (28.0-34.0) L 09/13/21 21:48 MCHC 31.7 g/dL (30.0-36.0) 09/13/21 21:48 RDW 18.3 % (12.1-15.1) H 09/13/21 21:48 Plt Count 185 10^3/cmm (130-400) 09/13/21 21:48 MPV 10.5 fL (7.4-10.4) H 09/13/21 21:48 Neut % (Auto) 47.0 % 09/13/21 21:48 Lymph % (Auto) 38.0 % 09/13/21 21:48 Hitchcock % (Auto) 8.0 % 09/13/21 21:48 Eos % (Auto) 5.8 % 09/13/21 21:48 Baso % (Auto) 0.9 % 09/13/21 21:48 Neut # (Auto) 4.48 10^3/uL (1.8-7.7) 09/13/21 21:48 Lymph # (Auto) 3.6 10^3/uL (0.8-4.8) 09/13/21 21:48 Hitchcock # (Auto) 0.8 10^3/uL (0.2-0.9) 09/13/21 21:48 Eos # (Auto) 0.6 10^3/uL (0.0-0.8) 09/13/21 21:48 Baso # (Auto) 0.1 10^3/uL (0.0-0.1) 09/13/21 21:48 Nucleated RBC % (auto) 0 % 09/13/21 21:48 Nucleated RBCs # 0.0 /100WBC 09/13/21 21:48 PT 18.70 SECONDS (12.1-14.9) H 09/13/21 21:48 INR 1.53 (0.8-1.2) H 09/13/21 21:48 D-Dimer 0.29 ug/mIFEU (0-0.59) 09/13/21 21:48 Sodium 135 mmol/L (136-145) L 09/13/21 21:48 Potassium 4.0 mmol/L (3.5-5.1) 09/13/21 21:48 Chloride 95 mmol/L (98-107) L 09/13/21 21:48 Carbon Dioxide 22 mmol/L (22-29) 09/13/21 21:48 Anion Gap 22.0 (5-19) H 09/13/21 21:48 BUN 21 mg/dL (8-23) 09/13/21 21:48 Creatinine 1.5 mg/dL (0.7-1.2) H 09/13/21 21:48 GFR Calculation Not Reportable 09/13/21 21:48 Glucose 164 mg/dL (65-115) H 09/13/21 21:48 Calculated Osmolality 287 mOsm/kg (285-295) 09/13/21 21:48 Calcium 9.1 mg/dL (8.5-10.5) 09/13/21 21:48 Total Bilirubin 0.5 mg/dL (0.15-1.2) 09/13/21 21:48 AST 45 U/L (0-40) H 09/13/21 21:48 ALT 42 U/L (0-41) H 09/13/21 21:48 Alkaline Phosphatase 115 IU/L (40-130) 09/13/21 21:48 Troponin T Baseline 42 ng/L (0-15) H 09/13/21 21:48 Troponin T 120 Minute 35.03 ng/L (0-15) H 09/13/21 23:40 Delta Troponin T -6.97 ABS# (0-10) L 09/13/21 23:40 NT-Pro-B Natriuret Pep 99726 pg/mL (0-450) H 09/13/21 21:48 Total Protein 6.8 g/dL (6.6-8.7) 09/13/21 21:48 Albumin 4.2 g/dL (3.5-5.2) 09/13/21 21:48 Globulin 2.6 g/dL (1.3-4.6) 09/13/21 21:48 SARS-CoV-2 Ag (Rapid) Negative (Negative) 09/13/21 22:23 EKG Data EKG 1: I personally reviewed and interpreted this EKG as follows: EKG Interpretation Date: 09/13/21 EKG interpretation time: 22:11 Interpretation: afib hr [address] or t wave abnormalities qrs 118 qtc 442 Discharge Plan Discharge Patient Disposition: Home Clinical Impression: Dyspnea, Nausea Condition: Stable Prescriptions: New ondansetron 4 mg tablet,disintegrating 4 mg PO Q6H PRN (Reason: nausea and vomiting) Qty: 14 0RF No Action (DME) wheeled walker See Rx Instructions .Route .MEDSUPPLY Qty: 1 0RF Rx Instructions: As directed Jardiance 10 mg tablet 10 mg PO DAILY 30 Days Qty: 30 5RF ascorbic acid (vitamin C) 500 mg tablet extended release 500 mg PO BID@06,17 0RF omega-3 fatty acids [Fish Oil Concentrate] 1,000 mg capsule 1,000 mg PO DAILY@06 0RF amoxicillin-pot clavulanate 875-125 mg tablet 1 tab PO BID 10 Days Qty: 20 0RF pantoprazole 40 mg tablet,delayed release (DR/EC) 40 mg PO QAM Qty: 90 3RF digoxin 125 mcg (0.125 mg) tablet 125 mcg PO DAILY Qty: 90 3RF nitroglycerin 0.4 mg tablet, sublingual 0.4 mg sublingual Q5M MDD 3 tabs PRN (Reason: Chest Pain) Qty: 25 3RF Entresto 97-103 mg tablet 1 tab PO BID Qty: 10 0RF Eliquis 5 mg tablet 5 mg PO BID Qty: 60 0RF (DME) cpap See Rx Instructions .Route .MEDSUPPLY Qty: 1 0RF Rx Instructions: supply new tubing and mask. meloxicam 15 mg tablet 15 mg PO DAILY Qty: 90 3RF metoprolol tartrate 50 mg tablet 50 mg PO BID Qty: 180 3RF allopurinol 300 mg tablet See Rx Instructions .ROUTE .COMPLEX Qty: 90 0RF Dose Instruction: TAKE 1 TABLET EVERY DAY AT 6AM Rx Instructions: TAKE 1 TABLET EVERY DAY AT 6AM hydrocodone-acetaminophen 5-325 mg tablet 1 tab PO Q8H PRN (Reason: Pain) 30 Days Qty: 60 0RF fentanyl 50 mcg/hr patch 72 hour 50 mcg topical Q72H 30 Days Qty: 10 0RF metoclopramide HCl [Reglan] 5 mg tablet 5 mg PO BID Qty: 30 3RF spironolactone 25 mg tablet See Rx Instructions .ROUTE .COMPLEX Qty: 90 3RF Dose Instruction: TAKE 1 TABLET EVERY DAY (AT 6AM) Rx Instructions: TAKE 1 TABLET EVERY DAY (AT 6AM) clopidogrel 75 mg tablet See Rx Instructions .ROUTE .COMPLEX Qty: 90 3RF Dose Instruction: TAKE 1 TABLET EVERY DAY (AT 6AM) Rx Instructions: TAKE 1 TABLET EVERY DAY (AT 6AM) atorvastatin 40 mg tablet 40 mg PO DAILY Qty: 90 3RF latanoprost 0.005 % drops 1 drp ophthalmic (eye) QAM 0RF Rx Instructions: (both eyes) brimonidine 0.2 % drops 1 drp ophthalmic (eye) BID@06,17 0RF vitamin E 400 unit Capsule 400 unit PO BID 0RF ezetimibe 10 mg tablet 10 mg PO DAILY@0600 0RF potassium chloride 20 mEq tablet,ER particles/crystals 20 meq PO QAM 0RF furosemide 40 mg tablet 40 mg PO QAM 0RF isosorbide mononitrate 60 mg tablet extended release 24 hr 90 mg PO DAILY@0600 0RF Discharge Orders: Discharge ED (Routine); Ordered 09/14/21 Ordered By: Perla Bertrand Referrals: Raymond Reddy MD [Primary Care Provider] - 1-3 days Discharge Diet: Advance as tolerated Discharge Activity: Resume usual activity Patient Instructions: Acute Nausea and Vomiting (ED), Dyspnea (ED) Coding Level of Care Code ED Agricultural Economist for Margaret Dinero
[2021-09-13 22:34] LABS: Basophils # 0.1 10^3/uL (0.0-0.1); Basophils % 0.9 %; Eosinophils # 0.6 10^3/uL (0.0-0.8); Eosinophils % 5.8 %; Hematocrit 49.2 % (42.0-52.0); Hemoglobin 15.6 g/dL (11.7-16.6); Lymphocytes # 3.6 10^3/uL (0.8-4.8); Mean Corpuscular HGB Conc 31.7 g/dL (30.0-36.0); Mean Corpuscular Hemoglobin 26.6 pg (28.0-34.0); Mean Platelet Volume 10.5 fL (7.4-10.4); Monocytes # 0.8 10^3/uL (0.2-0.9); Neutrophils # 4.48 10^3/uL (1.8-7.7); Nucleated Red Blood Cells % 0 %; Platelet Count 185 10^3/cmm (130-400); Red Blood Count 5.86 10^6/uL (4.1-5.3); Red Cell Distribution Width 18.3 % (12.1-15.1); White Blood Count 9.5 10^3/uL (4.0-10.0)
[2021-09-13 22:38] LABS: INR 1.53 (0.8-1.2)
[2021-09-13] MEDS: ondansetron 2 mg/ML SDV 2 mL 4 MG IVP (22:40)
--- NOTE | 2021-09-13 22:45 | PC.NURSE ---
spoke with [employer] rep and conveyed info to dr schumacher, also info being faxed
[2021-09-13 22:48] LABS: Troponin(5th) Baseline 42 ng/L (0-15)
[2021-09-13 22:51] LABS: D Dimer 0.29 ug/mIFEU (0-0.59)
[2021-09-13 22:55] LABS: Alanine Aminotransferase 42 U/L (0-41); Albumin Level 4.2 g/dL (3.5-5.2); Alkaline Phosphatase 115 IU/L (40-130); Aspartate Amino Transferase 45 U/L (0-40); Blood Urea Nitrogen 21 mg/dL (8-23); Calcium 9.1 mg/dL (8.5-10.5); Carbon Dioxide 22 mmol/L (22-29); Chloride 95 mmol/L (98-107); Globulin 2.6 g/dL (1.3-4.6); Glucose 164 mg/dL (65-115); NT Pro B Type Natriuretic Pept 10932 pg/mL (0-450); Osmolality Calculated 287 mOsm/kg (285-295); Sodium 135 mmol/L (136-145); Total Bilirubin 0.5 mg/dL (0.15-1.2); Total Protein 6.8 g/dL (6.6-8.7)
[2021-09-13] MEDS: sodium chloride 0.9% 1,000 ML 999 ML IV (22:57)
[2021-09-13 22:59] LABS: SARS Covid-2 Antigen Negative (Negative)
[2021-09-13] MEDS: FUROsemide 10 mg/mL SDV 10mL 60 MG IVP (23:30)
--- NOTE | 2021-09-14 00:06 | ECG_ITS ---
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 Measurements Intervals [place] Rate: 94 P: DE: QRS: -72 QRSD: 108 T: 108 QT: 392 QTc: 492 Interpretive Statements ATRIAL FLUTTER/TACHYCARDIA ANTERIOR MYOCARDIAL INFARCTION , PROBABLY OLD [40+ ms Q WAVE AND/OR ST/T ABNORMALITY IN V3/V4] INFERIOR MYOCARDIAL INFARCTION , PROBABLY OLD [40+ ms Q WAVE AND/OR ST/T ABNORMALITY IN II/aVF] Compared to ECG 09/13/2021 22:11:40 Atrial fibrillation no longer present Left anterior fascicular block no longer present Myocardial infarct finding still present Electronically Signed On 09-14-2021 0:24:24 CDT by Rene Hickey M.D. [id number] f
[2021-09-14 00:21] LABS: Troponin 5 2HR 35.03 ng/L (0-15)
[2021-09-14 00:22] LABS: Troponin 5 2HR Delta -6.97 ABS# (0-10)
[2021-09-14 00:54] VITALS: PULSE 94; RESP 18; O2SAT 94
== END 2021-09-14 00:55 | disposition home or self-care (01) ==
PROVIDERS: Emergency Medicine; Emergency Provider Emergency Medicine; PCP Internal Medicine
DX: R11.0 Nausea (principal); R06.00 Dyspnea, unspecified; Z79.01 Long term (current) use of anticoagulants; Z79.02 Long term (current) use of antithrombotics/antiplatelets; I11.0 Hypertensive heart disease with heart failure; I50.9 Heart failure, unspecified; I25.10 Atherosclerotic heart disease of native coronary artery without angina pectoris; E78.5 Hyperlipidemia, unspecified; Z85.46 Personal history of malignant neoplasm of prostate; Z95.810 Presence of automatic (implantable) cardiac defibrillator; Z87.891 Personal history of nicotine dependence; Z20.822 Contact with and (suspected) exposure to COVID-19
CPT/HCPCS: 71045; 80053; 83880; 84484; 85025; 85378; 85610; 87426; 93005; 96361; 96374; 99285; J1940; J2405; J7030

== ENCOUNTER 2021-09-17 07:57 | Outpatient (CLI) | payer MEDICARE, SELFPAY ==
[2021-09-17 09:04] LABS: Anion Gap 13.6 (5-19); Blood Urea Nitrogen 23 mg/dL (8-23); Calcium 9.4 mg/dL (8.5-10.5); Carbon Dioxide 29 mmol/L (22-29); Chloride 99 mmol/L (98-107); Glucose 103 mg/dL (65-115); NT Pro B Type Natriuretic Pept 6612 pg/mL (0-450); Osmolality Calculated 288 mOsm/kg (285-295); Potassium 4.6 mmol/L (3.5-5.1); Sodium 137 mmol/L (136-145)
== END 2021-09-17 07:58 | disposition home or self-care (01) ==
LOC: LAB 08:02
PROVIDERS: PCP Internal Medicine; Visit Provider Internal Medicine Cardiovascular Disease
DX: I25.5 Ischemic cardiomyopathy (principal); I50.9 Heart failure, unspecified; R06.00 Dyspnea, unspecified; I25.119 Atherosclerotic heart disease of native coronary artery with unspecified angina pectoris; N17.9 Acute kidney failure, unspecified
CPT/HCPCS: 36415; 80048; 83880

== ENCOUNTER → 2021-09-24 10:44 | Outpatient (BNVA) | payer MEDICARE, SELFPAY | PROVIDERS: PCP Internal Medicine; Visit Provider Internal Medicine Cardiovascular Disease | DX: I25.118 Atherosclerotic heart disease of native coronary artery with other forms of angina pectoris (principal); I13.0 Hypertensive heart and chronic kidney disease with heart failure and stage 1 through stage 4 chronic kidney disease, or unspecified chronic kidney disease; N18.9 Chronic kidney disease, unspecified; I50.23 Acute on chronic systolic (congestive) heart failure; Z87.891 Personal history of nicotine dependence; R55 Syncope and collapse; Z95.810 Presence of automatic (implantable) cardiac defibrillator; G47.33 Obstructive sleep apnea (adult) (pediatric); I48.91 Unspecified atrial fibrillation; Z79.01 Long term (current) use of anticoagulants; E78.5 Hyperlipidemia, unspecified | CPT/HCPCS: 36415; 80048; 83880; 99214 ==

== ENCOUNTER → 2021-12-27 08:42 | Outpatient (BNVA) | payer MEDICARE, SELFPAY | PROVIDERS: PCP Internal Medicine; Visit Provider Internal Medicine Cardiovascular Disease | DX: Z45.02 Encounter for adjustment and management of automatic implantable cardiac defibrillator (principal) | CPT/HCPCS: 93283 ==

== ENCOUNTER → 2022-02-07 08:07 | Outpatient (BNVA) | payer MEDICARE, SELFPAY | PROVIDERS: PCP Internal Medicine; Visit Provider Internal Medicine Cardiovascular Disease | DX: Z45.02 Encounter for adjustment and management of automatic implantable cardiac defibrillator (principal) | CPT/HCPCS: 93283 ==

== ENCOUNTER → 2022-03-28 09:23 | Outpatient (BNVA) | payer MEDICARE, SELFPAY | PROVIDERS: PCP Internal Medicine; Visit Provider Internal Medicine Cardiovascular Disease | DX: Z45.02 Encounter for adjustment and management of automatic implantable cardiac defibrillator (principal) | CPT/HCPCS: 93283 ==

== ENCOUNTER 2022-03-31 10:52 | Emergency (ER) | payer MEDICARE, SELFPAY ==
[2022-03-31] VITALS (31 sets, daily range): BP systolic 100–109; BP diastolic 58–69; PULSE 94; RESP 16–18; TEMP 35.9; O2SAT 90–98; BMI 23.6
--- NOTE | 2022-03-31 11:13 | CT_ITS ---
WS: [id number] CT ABDOMEN PELVIS TECHNIQUE: Noncontrast CT of the abdomen and pelvis with coronal and sagittal reformatted images. CLINICAL INFORMATION: flank pain COMPARISON: None. DLP: 492.[address] scans at [facility] use at least one of these dose optimization techniques: automated e xposure control; mA and/or kV adjustment per patient size (includes targeted exams where dose is matc hed to clinical indication); or iterative reconstruction. FINDINGS: LEFT LUIS degrades images in the pelvis. Postoperative changes surgical clips in the pelvis. Large wilhelm inated gallstone measuring 2.3 CM. No gallbladder wall thickening or pericholecystic fluid. Hepatomeg katrin. Small esophageal hiatal hernia. Lung bases are well aerated. Noncontrast spleen is normal. Fatty atrophy of the pancreas. Splenic artery calcification. Adrenal glands are normal. Normal caliber abd ominal aorta. Vascular calcification. Hemorrhagic or proteinaceous LEFT renal cyst measuring 3.7 CM. Larger low-attenuation lower pole LEFT renal cyst measuring 4.0 cm unchanged. No hydronephrosis in either kidney. No obstructing renal or u reteral calculi. Pelvic phleboliths. Prior prostatectomy. Sigmoid diverticulosis. No evidence of acut e diverticulitis. CT/CT kidney stone [id number] IMPRESSION: 1. Sigmoid diverticulosis. No evidence of acute diverticulitis. 2. No hydronephrosis in either kidney. No obstructing renal or ureteral calcul i. Some images in the pelvis obscured due to LEFT LUIS. 3. Prior prostatectomy. 4. Cholelithiasis unchanged. 5. Small esophageal hiatal hernia. 6. Stable LEFT renal cysts, one with increased attenuation likely hemorrhagic or proteinaceous. 7. No other acute findings.
--- NOTE | 2022-03-31 11:13 | ECG_ITS ---
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 Measurements Intervals [place] Rate: 72 P: 0 SD: 0 QRS: -78 QRSD: 172 T: 85 QT: 412 QTc: 451 Interpretive Statements ATRIAL FIBRILLATION INTRAVENTRICULAR CONDUCTION DELAY [130+ ms QRS DURATION] ANTEROLATERAL MYOCARDIAL INFARCTION , OF INDETERMINATE AGE [40+ ms Q WAVE IN I/aVL/V3-V6] Compared to ECG 09/13/2021 23:41:00 Intraventricular conduction delay now present Atrial flutter no longer present Myocardial infarct finding still present Electronically Signed On 03-31-2022 20:48:08 STERILIZER OPERATOR by Florence Suarez M.D. [id number]
--- NOTE | 2022-03-31 11:43 | ED_ITS ---
HPI - Abdominal Pain General: Chief Complaint: Abdominal Pain Stated Complaint: urinary/side pain Time Seen by Provider: 03/31/22 11:04 Source: patient Mode of arrival: ambulatory History of Present Illness: 82-year-old male presents emergency room complaining of left lower quadrant abdominal pain has been on for about 3 weeks. He has not noticed anything that worsens it but he has noticed that it improves after he urinates. Denies any dysuria urgency or frequency or hematuria. Pain does radiate in his left flank. He thinks he might of passed a kidney stone sometime recently. No vomiting no diarrhea no hematochezia or melena. No history of diverticulitis MD elicited complaint: abdominal pain Onset (ago): week(s) (3) Pain Consistency: intermittent Location: L flank Severity: moderate Quality: sharp Exacerbating factors: nothing Relieving factors: nothing Associated Symptoms: Denies anorexia, belching, bloating, change in bowel habits, change in stool character, chills, coffee ground emesis, constipation, GI cramping, diarrhea, dyspepsia, dysuria, excessive flatus, fever(s), heartburn, hematochezia, hematuria, hematemesis, fecal incontinence, loose stools, melena, nausea, poor appetite, syncope and vomiting Review of Systems Const: Denies: fever(s) or chills ENMT: Denies: throat pain, ear or mastoid pain, nasal discharge or nasal congestion Card: Denies: chest pain, palpitations, irregular heart rhythm or syncope Resp: Denies: dyspnea, productive cough or non-productive cough GI: Denies: nausea, vomiting, hematemesis, coffee ground emesis, heartburn, diarrhea, constipation, bloating, GI cramping, belching, excessive flatus, fecal incontinence, change in bowel habits, change in stool character, hematochezia or melena : Reports: difficulty urinating; Denies: dysuria, urinary frequency, urinary urgency or hematuria Musc: Denies: neck pain or back pain Skin/Breast: Denies: rash or pruritus PFSH ED PFSH: Medical History Acute exacerbation of CHF (congestive heart failure) Acute on chronic systolic heart failure, NYHA class 4 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 LV systolic function is moderately reduced with EF of 35 to 40%. There is severe hypokinesis of anterior and apical peña. Diastolic function is indeterminate because of atrial fibrillation. There is mild to moderate mitral regurgitation. Mild aortic regurgitation is seen. Mild pulmonic regurgitation is present. RVSP is 45 to 50 mmHg consistent with moderate pulmonary hypertension. Compared to prior study from 06/30/2018, LV systolic function is now further decreased to 35 to 40%. Atherosclerotic heart disease of [place] coronary artery without angina pectoris Atrial fibrillation Atrial fibrillation with RVR Benign essential hypertension with target blood pressure below 140/90 Cardiac arrest High risk for any kind of surgical intervention, because of history of ca rdiac arrest with general anesthesia Cardiac LV ejection fraction >40% Chronic kidney disease Congestive heart failure Dyslipidemia (high LDL; low HDL) Erectile dysfunction Essential (primary) hypertension GERD (gastroesophageal reflux disease) Gout Hiatal hernia History of prostate cancer Hx of angiography Ischemic cardiomyopathy History of 16 stents Ischemic cardiomyopathy Mediastinal adenopathy Mitral valve regurgitation Osteoarthritis VENU (stress urinary incontinence), male Surgical History AICD (automatic cardioverter/defibrillator) present History of appendectomy History of carpal tunnel release RIGHT June 22, 2015, Dr. Oliveira History of hemorrhoidectomy History of inguinal hernia repair History of left hip replacement History of left shoulder replacement History of prostatectomy S/P PTCA (percutaneous transluminal coronary angioplasty) Family History Brother CAD (coronary artery disease) Diabetes Heart disease Father CAD (coronary artery disease) Heart disease Sister CAD (coronary artery disease) Cancer Diabetes Heart disease Mother Diabetes Stroke Grandmother Diabetes Denies family history of Clotting disorder Dementia Chronic kidney disease (CKD) Suicide Anesthesia complication Bleeding disorder Lung disease Social History Smoking and tobacco status: former smoker Alcohol intake: never Marital status: Current occupational status: retired History of recent travel: No Physical Exam Const: GENERAL APPEARANCE: cooperative and comfortable ORIENTATION/CONSCIOUSNESS: Yes awake, Yes oriented to person, Yes oriented to place and Yes oriented to time HENMT: COMMON NORMALS: normocephalic, atraumatic and hearing grossly normal bilaterally HEAD & SCALP: normocephalic and atraumatic Resp: COMMON NORMALS: normal respiratory effort, No retractions, No use of accessory muscles and clear to auscultation bilaterally AUSCULTATION: clear to auscultation bilaterally Cardio: COMMON NORMALS: regular rate, regular rhythm and No murmurs present (Cardio) RATE: regular rate RHYTHM: regular rhythm GI: COMMON NORMALS: Soft to palpation and No hepatosplenomegaly present AUSCULTATION: Yes normoactive bowel sounds PALPATION: Yes Soft to palpation, No Tenderness to palpation present (GI), No Guarding due to palpation present (GI) and Yes No hepatosplenomegaly present Extremity: COMMON NORMALS: normal to inspection, capillary refill normal, no clubbing, cyanosis or edema, no calf tenderness and no pedal edema Neuro: SENSORIUM/ORIENTATION: Yes oriented to person, Yes oriented to place and Yes oriented to time Skin: COMMON NORMALS: no rashes or lesions noted GENERAL SKIN EXAM: no rashes or lesions noted Course Vital Signs: Vital signs: Vital Signs Temperature 96.6 F L 03/31/22 10:59 Pulse Rate 94 03/31/22 10:59 Respiratory Rate 18 03/31/22 14:51 Blood Pressure 100/58 03/31/22 14:51 Pulse Oximetry 98 03/31/22 14:51 Oxygen Delivery Me thod 03/31/22 10:59 MDM - Abdominal Pain Medical Decision Making Patient seen for abdominal pain Labs and imaging reviewed. No acute findings on the CT. Laboratory tests show mildly elevated creatinine consistent with previous readings. Symptoms have improved at this time. Discharge patient home follow-up with primary care if has any worsening or change symptoms. Repeat abdominal exam at time of discharge unremarkable. Medical Records I reviewed the patient's medical records. Lab Data I reviewed the patient's lab results. 03/31/22 11:38 03/31/22 11:38 Labs/Radiology: Radiology Impressions Abdomen/Pelvis CT 03/31/22 11:13 IMPRESSION: 1. Sigmoid diverticulosis. No evidence of acute diverticulitis. 2. No hydronephrosis in either kidney. No obstructing renal or ureteral calculi. Some images in the pelvis obscured due to LEFT LUIS. 3. Prior prostatectomy. 4. Cholelithiasis unchanged. 5. Small esophageal hiatal hernia. 6. Stable LEFT renal cysts, one with increased attenuation likely hemorrhagic or proteinaceous. 7. No other acute findings. Laboratory Results WBC 8.0 10^3/uL (4.0-10.0) 03/31/22 11:38 RBC 4.99 10^6/uL (4.1-5.3) 03/31/22 11:38 Hgb 14.9 g/dL (11.7-16.6) 03/31/22 11:38 Hct 46.1 % (42.0-52.0) 03/31/22 11:38 MCV 92.4 fl (80-94) 03/31/22 11:38 MCH 29.9 pg (28.0-34.0) 03/31/22 11:38 MCHC 32.3 g/dL (30.0-36.0) 03/31/22 11:38 RDW 13.6 % (12.1-15.1) 03/31/22 11:38 Plt Count 179 10^3/cmm (130-400) 03/31/22 11:38 MPV 10.1 fL (7.4-10.4) 03/31/22 11:38 Neut % (Auto) 73.1 % 03/31/22 11:38 Lymph % (Auto) 15.6 % 03/31/22 11:38 [place] % (Auto) 7.8 % 03/31/22 11:38 Eos % (Auto) 2.3 % 03/31/22 11:38 Baso % (Auto) 0.8 % 03/31/22 11:38 Neut # (Auto) 5.82 10^3/uL (1.8-7.7) 03/31/22 11:38 Lymph # (Auto) 1.2 10^3/uL (0.8-4.8) 03/31/22 11:38 [place] # (Auto) 0.6 10^3/uL (0.2-0.9) 03/31/22 11:38 Eos # (Auto) 0.2 10^3/uL (0.0-0.8) 03/31/22 11:38 Baso # (Auto) 0.1 10^3/uL (0.0-0.1) 03/31/22 11:38 Nucleated RBC % (auto) 0 % 03/31/22 11:38 Nucleated RBCs # 0.0 /100WBC 03/31/22 11:38 Sodium 134 mmol/L (136-145) L 03/31/22 11:38 Potassium 4.3 mmol/L (3.5-5.1) 03/31/22 11:38 Chloride 98 mmol/L (98-107) 03/31/22 11:38 Carbon Dioxide 29 mmol/L (22-29) 03/31/22 11:38 Anion Gap 11.3 (5-19) 03/31/22 11:38 BUN 24 mg/dL (8-23) H 03/31/22 11:38 Creatinine 1.5 mg/dL (0.7-1.2) H 03/31/22 11:38 GFR Calculation Not Reportable 03/31/22 11:38 Glucose 115 mg/dL (65-115) 03/31/22 11:38 Calculated Osmolality 283 mOsm/kg (285-295) L 03/31/22 11:38 Calcium 8.9 mg/dL (8.5-10.5) 03/31/22 11:38 Total Bilirubin 0.7 mg/dL (0.15-1.2) 03/31/22 11:38 AST 21 U/L (0-40) 03/31/22 11:38 ALT 22 U/L (0-41) 03/31/22 11:38 Alkaline Phosphatase 99 U/L (40-130) 03/31/22 11:38 Total Protein 6.3 g/dL (6.6-8.7) L 03/31/22 11:38 Albumin 3.5 g/dL (3.5-5.2) 03/31/22 11:38 Globulin 2.8 g/dL (1.3-4.6) 03/31/22 11:38 Lipase 19 U/L (13-60) 03/31/22 11:38 Urine Color Straw (Yellow) 03/31/22 13:17 Urine Appearance Clear (CLEAR) 03/31/22 13:17 Urine pH 6 (5-7) 03/31/22 13:17 Ur Specific [place] 1.005 (1.005-1.030) 03/31/22 13:17 Urine Protein Neg (Negative) 03/31/22 13:17 Urine Glucose (UA) 4+ (Normal) H 03/31/22 13:17 Urine Ketones Negative (Negative) 03/31/22 13:17 Urine Blood Neg (Negative) 03/31/22 13:17 Urine Nitrate Negative (Negative) 03/31/22 13:17 Urine Bilirubin Neg (Negative) 03/31/22 13:17 Urine Urobilinogen Norm mg/dL (Negative) 03/31/22 13:17 Ur Leukocyte Esterase Negative (Negative) 03/31/22 13:17 Discharge Plan Discharge Patient Disposition: Home Clinical Impression: Abdominal pain Condition: Stable Prescriptions: No Action (DME) wheeled walker See Rx Instructions .Route .MEDSUPPLY Qty: 1 0RF Rx Instructions: As directed ascorbic acid (vitamin C) 500 mg tablet extended release 500 mg PO BID@ fentanyl 37.5 mcg/hour patch 72 hour 1 patch transdermal Q72H 30 Days Qty: 10 0RF pantoprazole 40 mg tablet,delayed release (DR/EC) 40 mg PO QAM Qty: 90 3RF nitroglycerin 0.4 mg tablet, sublingual 0.4 mg sublingual Q5M MDD 3 tabs PRN (Reason: Chest Pain) Qty: 25 3RF Eliquis 5 mg tablet 5 mg PO BID Qty: 60 0RF (DME) cpap See Rx Instructions .Route .MEDSUPPLY Qty: 1 0RF Rx Instructions: supply new tubing and mask. meloxicam 15 mg tablet 15 mg PO DAILY Qty: 90 3RF metoprolol tartrate 50 mg tablet 50 mg PO BID Qty: 180 3RF atorvastatin 40 mg tablet 40 mg PO DAILY Qty: 90 3RF metoclopramide HCl [Reglan] 5 mg tablet 5 mg PO BID Qty: 180 3RF Entresto 97-103 mg tablet 0.5 tab PO BID Qty: 90 3RF digoxin 125 mcg (0.125 mg) tablet 125 mcg PO DAILY Qty: 90 3RF Jardiance 10 mg tablet 10 mg PO DAILY Qty: 90 3RF latanoprost 0.005 % drops 1 drp ophthalmic (eye) QAM Rx Instructions: (both eyes) brimonidine 0.2 % drops 1 drp ophthalmic (eye) BID@ vitamin E 400 unit Capsule 400 unit PO BID amlodipine 5 mg tablet 5 mg PO DAILY Fish Oil 1,000 mg (120 mg-180 mg) Capsule 1 cap PO DAILY furosemide 40 mg tablet 40 mg PO DAILY isosorbide mononitrate 30 mg tablet extended release 24 hr 30 mg PO QPM clopidogrel 75 mg tablet 75 mg PO DAILY spironolactone 25 mg tablet 25 mg PO DAILY potassium chloride 20 mEq tablet,ER particles/crystals 20 meq PO BID allopurinol 300 mg tablet 300 mg PO DAILY ezetimibe 10 mg tablet 10 mg PO DAILY Discharge Orders: Discharge ED (Routine); Ordered 03/31/22 Ordered By: Johnathan Medina Referrals: Raymond Reddy MD [Primary Care Provider] - Discharge Diet: Usual diet Discharge Activity: Resume usual activity Patient Instructions: Abdominal Pain (ED), Opioid Safety, Pain Management Activity Restrictions/Additional Instructions: You are seen today in the emergency room with a complaint of abdominal pain. CT of your abdomen was negative your white count and hemoglobin were normal. Your kidney function is slightly elevated consistent with findings in the past. Urine was normal. If your symptoms persist follow-up with your primary care doctor. 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
[2022-03-31 11:44] LABS: Basophils # 0.1 10^3/uL (0.0-0.1); Basophils % 0.8 %; Eosinophils # 0.2 10^3/uL (0.0-0.8); Eosinophils % 2.3 %; Hematocrit 46.1 % (42.0-52.0); Hemoglobin 14.9 g/dL (11.7-16.6); Lymphocytes # 1.2 10^3/uL (0.8-4.8); Lymphocytes % 15.6 %; Mean Corpuscular HGB Conc 32.3 g/dL (30.0-36.0); Mean Corpuscular Hemoglobin 29.9 pg (28.0-34.0); Mean Corpuscular Volume 92.4 fl (80-94); Mean Platelet Volume 10.1 fL (7.4-10.4); Monocytes # 0.6 10^3/uL (0.2-0.9); Monocytes % 7.8 %; Neutrophils # 5.82 10^3/uL (1.8-7.7); Neutrophils % 73.1 %; Nucleated Red Blood Cells % 0 %; Platelet Count 179 10^3/cmm (130-400); Red Blood Count 4.99 10^6/uL (4.1-5.3); Red Cell Distribution Width 13.6 % (12.1-15.1)
[2022-03-31 12:03] LABS: Alanine Aminotransferase 22 U/L (0-41); Albumin Level 3.5 g/dL (3.5-5.2); Alkaline Phosphatase 99 U/L (40-130); Anion Gap 11.3 (5-19); Aspartate Amino Transferase 21 U/L (0-40); Blood Urea Nitrogen 24 mg/dL (8-23); Calcium 8.9 mg/dL (8.5-10.5); Carbon Dioxide 29 mmol/L (22-29); Chloride 98 mmol/L (98-107); Globulin 2.8 g/dL (1.3-4.6); Glucose 115 mg/dL (65-115); Lipase 19 U/L (13-60); Osmolality Calculated 283 mOsm/kg (285-295); Potassium 4.3 mmol/L (3.5-5.1); Sodium 134 mmol/L (136-145); Total Bilirubin 0.7 mg/dL (0.15-1.2); Total Protein 6.3 g/dL (6.6-8.7)
[2022-03-31 13:28] LABS: Add Urine Microscopic? NO; Charge for UA Resulting for Rev
[2022-03-31 13:31] LABS: Bilirubin Urine Neg (Negative); Blood Urine Neg (Negative); Glucose Urine UA 4+ (Normal); Ketones Urine Negative (Negative); Leukocyte Esterase Urine Negative (Negative); Nitrate Urine Negative (Negative); Protein Urine Neg (Negative); Specific Gravity, Urine 1.005 (1.005-1.030); Urine Appearance Clear (CLEAR); Urine Color Straw (Yellow); Urobilinogen Urine Norm (Negative); pH Urine 6 (5-7)
== END 2022-03-31 14:52 | disposition home or self-care (01) ==
PROVIDERS: Emergency Provider Family Medicine; PCP Internal Medicine
DX: R10.32 Left lower quadrant pain (principal); Z79.01 Long term (current) use of anticoagulants; Z79.02 Long term (current) use of antithrombotics/antiplatelets; K57.90 Diverticulosis of intestine, part unspecified, without perforation or abscess without bleeding; Z87.891 Personal history of nicotine dependence; I13.0 Hypertensive heart and chronic kidney disease with heart failure and stage 1 through stage 4 chronic kidney disease, or unspecified chronic kidney disease; N18.9 Chronic kidney disease, unspecified; I50.23 Acute on chronic systolic (congestive) heart failure; I25.10 Atherosclerotic heart disease of native coronary artery without angina pectoris; E78.5 Hyperlipidemia, unspecified; Z85.46 Personal history of malignant neoplasm of prostate; Z95.810 Presence of automatic (implantable) cardiac defibrillator
CPT/HCPCS: 74176; 80053; 81003; 83690; 85025; 93005; 99285

== ENCOUNTER → 2022-04-09 15:27 | Outpatient (BNVA) | payer MEDICARE, SELFPAY | PROVIDERS: PCP Internal Medicine; Visit Provider Nurse Practitioner Family | DX: I25.118 Atherosclerotic heart disease of native coronary artery with other forms of angina pectoris (principal); R35.81 Nocturnal polyuria; E78.5 Hyperlipidemia, unspecified; R81 Glycosuria; I48.91 Unspecified atrial fibrillation; I50.9 Heart failure, unspecified; Z95.810 Presence of automatic (implantable) cardiac defibrillator; Z87.891 Personal history of nicotine dependence; Z79.899 Other long term (current) drug therapy; Z13.1 Encounter for screening for diabetes mellitus | CPT/HCPCS: 36415; 83036; 99214 ==

== ENCOUNTER → 2022-10-07 10:22 | Outpatient (BNVA) | payer MEDICARE, SELFPAY | PROVIDERS: PCP Internal Medicine; Visit Provider Internal Medicine Cardiovascular Disease | DX: I13.0 Hypertensive heart and chronic kidney disease with heart failure and stage 1 through stage 4 chronic kidney disease, or unspecified chronic kidney disease (principal); N18.9 Chronic kidney disease, unspecified; I50.23 Acute on chronic systolic (congestive) heart failure; Z87.891 Personal history of nicotine dependence; I25.5 Ischemic cardiomyopathy; Z95.810 Presence of automatic (implantable) cardiac defibrillator; I34.0 Nonrheumatic mitral (valve) insufficiency; I25.119 Atherosclerotic heart disease of native coronary artery with unspecified angina pectoris; E78.5 Hyperlipidemia, unspecified; R06.02 Shortness of breath | CPT/HCPCS: 36415; 80048; 83880; 99214 ==

== ENCOUNTER → 2023-04-21 10:27 | Outpatient (BNVA) | payer MEDICARE, SELFPAY | PROVIDERS: PCP Internal Medicine; Visit Provider Internal Medicine Cardiovascular Disease | DX: R06.02 Shortness of breath (principal); I10 Essential (primary) hypertension; I48.91 Unspecified atrial fibrillation; I25.5 Ischemic cardiomyopathy; Z95.810 Presence of automatic (implantable) cardiac defibrillator; I25.119 Atherosclerotic heart disease of native coronary artery with unspecified angina pectoris; I34.0 Nonrheumatic mitral (valve) insufficiency; E78.5 Hyperlipidemia, unspecified; Z79.01 Long term (current) use of anticoagulants; I95.9 Hypotension, unspecified | CPT/HCPCS: 36415; 80048; 83880; 99214 ==

== ENCOUNTER 2023-06-09 12:11 | Inpatient (IN) | payer MEDICARE, SELFPAY ==
[2023-06-09] VITALS (9 sets, daily range): BP systolic 87–132; BP diastolic 43–75; PULSE 60–87; RESP 16–22; TEMP 36.4–36.6; O2SAT 92–99
--- NOTE | 2023-06-09 12:13 | ECG_ITS ---
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 Measurements Intervals [place] Rate: 68 P: 0 MN: 0 QRS: 241 QRSD: 211 T: 79 QT: 468 QTc: 498 Interpretive Statements ELECTRONIC VENTRICULAR PACEMAKER Compared to ECG 03/31/2022 11:20:36 Intraventricular conduction delay no longer present Myocardial infarct finding no longer present Electronically Signed On 06-09-2023 12:27:23 CDT by Rene Hickey M.D. [email or web address]
--- NOTE | 2023-06-09 12:13 | XR_ITS ---
WS: [id number] Exam: XR chest 1V portable [id number] Date/Time of Exam: 06/09/2023 12:52 PM Reason For Exam: cp Comparison 09/13/2021. The lungs are clear and fully expanded. Heart size top limits normal. No pleural effusions. A permane nt cardiac pacer superimposes the LEFT chest. Signs of coronary artery stenting. Bony structures are unremarkable. LEFT humeral head prosthesis. Advanced DJD of the RIGHT shoulder. IMPRESSION: 1. No acute cardiopulmonary finding.
--- NOTE | 2023-06-09 12:43 | CT_ITS ---
WS: [id number] CT ABDOMEN PELVIS TECHNIQUE: Noncontrast CT of the abdomen and pelvis with coronal and sagittal reformatted images. CLINICAL INFORMATION: abd pain COMPARISON: CT 03/31/22 DLP: 7.[address] scans at [facility] use at least one of these dose optimization techniques: automated e xposure control; mA and/or kV adjustment per patient size (includes targeted exams where dose is matc hed to clinical indication); or iterative reconstruction. FINDINGS: Lung bases are well aerated. Cholelithiasis. Small to moderate esophageal hiatal hernia.Fatty atrophy of the pancreas. Normal caliber abdominal aorta. Aortic calcification. Normal caliber abdominal aort a. Adrenal glands are normal. No hydronephrosis in either kidney. Increased attenuation LEFT renal le last unchanged compared to 03/31/2022 measuring 3.4 cm. Incidental LEFT renal cyst. Sigmoid diverticulosis. No evidence of acute diverticulitis. No evidence of high-grade small or large bowel obstruction. Urine distended bladder. Moderate spondylitic changes lumbar spine. No evidence o f free fluid or abscess in the abdomen or pelvis. No other acute findings. Prior appendectomy. Postoperative LEFT LUIS. Prior prostatectomy. IMPRESSION: 1. No evidence of fluid collection or abscess in the abdomen or pelvis. 2. Cholelithiasis with prominent laminated gallstone measuring 2.7 cm. No significant gallbladder wa ll thickening or pericholecystic fluid. 3. Small to moderate esophageal hernia. 4. Sigmoid diverticulosis. No evidence of acute diverticulitis. 5. Stable LEFT renal lesions compared to 03/31/2022. 6. No other acute findings. 7. Prior appendectomy. Postoperative LEFT LUIS. Prior prostatectomy.
--- NOTE | 2023-06-09 12:44 | ED_ITS ---
HPI - Chest Pain 2 General: Chief Complaint: Chest Pain Stated Complaint: chest pains Time Seen by Provider: 06/09/23 12:39 Source: patient Mode of arrival: ambulatory Limitations: no limitations History of Present Illness: 83-year-old male who states he has been having some diarrhea epigastric abdominal pain and vomiting. States that the pain started this morning states sharp pain in his lower chest upper abdomen rates the pain a 6 out of 10 had some vomiting denies any fever denies any severe pains. Associated symptoms: Reports abdominal pain and vomiting; Deny dyspnea, fever(s) or nausea Review of Systems 2 Const: Denies: fever(s), chills, body aches or change in appetite Eyes: Denies: blurry vision or eye discomfort ENMT: Denies: throat pain or dental pain Card: Reports: chest pain Resp: Denies: dyspnea GI: Reports: abdominal pain, vomiting and diarrhea; Denies: nausea Musc: Denies: neck pain or back pain Skin/Breast: Denies: rash Neuro: Denies: headache(s) PFSH ED 2 PFSH: Medical History Acute on chronic systolic heart failure, NYHA class 4 Mediastinal adenopathy Acute exacerbation of CHF (congestive heart failure) Chronic kidney disease Ischemic cardiomyopathy Cardiac arrest High risk for any kind of surgical intervention, because of history of cardiac arrest with general anesthesia VENU (stress urinary incontinence), male Cardiac LV ejection fraction >40% Erectile dysfunction History of prostate cancer Congestive heart failure Osteoarthritis Atrial fibrillation Mitral valve regurgitation Atherosclerotic heart disease [place] coronary artery w/angina pectoris Echocardiogram from 03/01/2020 is as followsLeft ventricle is mildly dilated. LV systolic function is moderately reduced with EF of 35 to 40%. There is severe hypokinesis of anterior and apical peña. Diastolic function is indeterminate because of atrial fibrillation. There is mild to moderate mitral regurgitation. Mild aortic regurgitation is seen. Mild pulmonic regurgitation is present. RVSP is 45 to 50 mmHg consistent with moderate pulmonary hypertension. Compared to prior study from 06/30/2018, LV systolic function is now further decreased to 35 to 40%. Ischemic cardiomyopathy History of 16 stents Dyslipidemia (high LDL; low HDL) Benign essential hypertension with target blood pressure below 140/90 Arteriosclerotic vascular disease Hiatal hernia Gout Essential (primary) hypertension GERD (gastroesophageal reflux disease) Hx of angiography Surgical History AICD (automatic cardioverter/defibrillator) present History of carpal tunnel release RIGHT June 22, 2015, Dr. Oliveira History of prostatectomy S/P PTCA (percutaneous transluminal coronary angioplasty) History of left hip replacement History of left shoulder replacement History of appendectomy History of hemorrhoidectomy History of inguinal hernia repair Family History Brother CAD (coronary artery disease) Diabetes Heart disease Father CAD (coronary artery disease) Heart disease Sister CAD (coronary artery disease) Cancer Diabetes Heart disease Mother Diabetes Stroke Grandmother Diabetes Denies family history of Clotting disorder Dementia Chronic kidney disease (CKD) Suicide Anesthesia complication Bleeding disorder Lung disease Social History Smoking and tobacco/nicotine status: former use of tobacco/nicotine Alcohol intake: never Substance/Drug Use: never Marital status: Current occupational status: retired Physical Exam 2 Const: COMMON NORMALS: no acute distress, patient oriented x3 and healthy appearing HENMT: COMMON NORMALS: normocephalic and atraumatic HEAD & SCALP: n ormocephalic and atraumatic Neck/C-Spine: COMMON NORMALS: full ROM and supple Chest: COMMONS NORMALS: normal inspection of the chest Resp: COMMON NORMALS: normal respiratory effort, No retractions, No use of accessory muscles and clear to auscultation bilaterally AUSCULTATION: clear to auscultation bilaterally Cardio: COMMON NORMALS: regular rate, regular rhythm and No murmurs present (Cardio) RATE: regular rate RHYTHM: regular rhythm GI: COMMON NORMALS: Normal to inspection, nondistended, normoactive bowel sounds present, Soft to palpation and no masses PALPATION: Yes Soft to palpation OTHER: epigastric tenderness Extremity: COMMON NORMALS: normal to inspection and full ROM Neuro: COMMON NORMALS: patient oriented x3, moves all extremities and no focal motor deficits Psych: COMMON NORMALS: mental status grossly normal, Normal thought process present and cooperative THOUGHT PROCESS: Normal thought process present Skin: COMMON NORMALS: no rashes or lesions noted and no wounds GENERAL SKIN EXAM: no rashes or lesions noted Course 2 Vital Signs: Vital signs: Vital Signs Temperature 97.9 F 06/09/23 12:17 Pulse Rate 68 06/09/23 12:17 Respiratory Rate 16 06/09/23 12:17 Blood Pressure 113/68 06/09/23 12:17 Pulse Oximetry 98 06/09/23 12:17 MDM - Chest Pain Medical Decision Making Patient presents with vomiting diarrhea it has been on for weeks he does have some dehydration here with elevated creatinine with acute kidney injury he has a mildly elevated troponin but looks like its about at his baseline his pain is really more epigastric spoke to the hospitalist will admit for further rehydration and to trend his troponins. He has been pain-free here Medical Records I reviewed the patient's medical records. Lab Data I reviewed the patient's lab results. 06/09/23 12:36 06/09/23 12:36 Laboratory Results WBC 13.61 10^3/uL (3.29-11.43) H 06/09/23 12:36 RBC 5.28 10^6/uL (3.85-5.65) 06/09/23 12:36 Hgb 16.50 g/dL (11.27-16.99) 06/09/23 12:36 Hct 49.0 % (37-53) 06/09/23 12:36 MCV 92.8 fl (82-101) 06/09/23 12:36 MCH 31.3 pg (27-33) 06/09/23 12:36 MCHC 33.7 g/dL (30-55) 06/09/23 12:36 RDW 13.9 % (12.1-15.1) 06/09/23 12:36 Plt Count 242 10^3/cmm (157-399) 06/09/23 12:36 MPV 10.6 fL (7.4-10.4) H 06/09/23 12:36 Neut % (Auto) 85.3 % 06/09/23 12:36 Lymph % (Auto) 9.2 % 06/09/23 12:36 Island % (Auto) 3.9 % 06/09/23 12:36 Eos % (Auto) 0.5 % 06/09/23 12:36 Baso % (Auto) 0.4 % 06/09/23 12:36 Neut # (Auto) 11.62 10^3/uL (1.8-7.7) H 06/09/23 12:36 Lymph # (Auto) 1.3 10^3/uL (0.8-4.8) 06/09/23 12:36 Island # (Auto) 0.5 10^3/uL (0.2-0.9) 06/09/23 12:36 Eos # (Auto) 0.1 10^3/uL (0.0-0.8) 06/09/23 12:36 Baso # (Auto) 0.1 10^3/uL (0.0-0.1) 06/09/23 12:36 Nucleated RBC % (auto) 0 % 06/09/23 12:36 Nucleated RBCs # 0.0 /100WBC 06/09/23 12:36 PT 21.70 SECONDS (12.1-14.9) H 06/09/23 12:36 INR 1.82 (0.8-1.2) H 06/09/23 12:36 Sodium 137 mmol/L (136-145) 06/09/23 12:36 Potassium 4.4 mmol/L (3.5-5.1) 06/09/23 12:36 Chloride 98 mmol/L (98-107) 06/09/23 12:36 Carbon Dioxide 20 mmol/L (22-29) L 06/09/23 12:36 Anion Gap 23.4 (5-19) H 06/09/23 12:36 BUN 42 mg/dL (8-23) H 06/09/23 12:36 Creatinine 2.3 mg/dL (0.7-1.2) H 06/09/23 12:36 GFR Calculation Not Reportable 06/09/23 12:36 Glucose 127 mg/dL (65-115) H 06/09/23 12:36 Calculated Osmolality 296 mOsm/kg (285-295) H 06/09/23 12:36 Calcium 9.6 mg/dL (8.5-10.5) 06/09/23 12:36 Total Bilirubin 1.1 mg/dL (0.15-1.2) 06/09/23 12:36 AST 19 U/L (0-40) 06/09/23 12:36 ALT 15 U/L (0-41) 06/09/23 12:36 Alkaline Phosphatase 104 U/L (40-130) 06/09/23 12:36 Troponin T Baseline 51 ng/L (0-15) H 06/09/23 12:36 Total Protein 7.4 g/dL (6.6-8.7) 06/09/23 12:36 Albumin 4.4 g/dL (3.5-5.2) 06/09/23 12:36 Globulin 3.0 g/dL (1.3-4.6) 06/09/23 12:36 Lipase 16 U/L (13-60) 06/09/23 12:36 Digoxin 1.7 ng/mL (0.6-1.2) H 06/09/23 12:36 All radiology interpretation(s) finalized by discharge EKG Data EKG 1: I personally reviewed and interpreted this EKG as follows: EKG interpretation date: 06/09/23 EKG interpretation time: 12:16 Interpretation: paced hr [address] elevation qrs 211 [id number] Discharge Plan Discharge Patient Disposition: Admitted As Inpatient Clinical Impression: Acute kidney injury, Chest pain, Vomiting Condition: Stable Prescriptions: No Action (DME) wheeled walker See Rx Instructions .Route .MEDSUPPLY Qty: 1 0RF Rx Instructions: As directed ascorbic acid (vitamin C) 500 mg tablet extended release 500 mg PO BID@06,17 pantoprazole 40 mg tablet,delayed release (DR/EC) 40 mg PO QAM Qty: 90 3RF nitroglycerin 0.4 mg tablet, sublingual 0.4 mg sublingual Q5M MDD 3 tabs PRN (Reason: Chest Pain) Qty: 25 3RF (DME) cpap See Rx Instructions .Route .MEDSUPPLY Qty: 1 0RF Rx Instructions: supply new tubing and mask. meloxicam 15 mg tablet 15 mg PO DAILY Qty: 90 3RF metoclopramide HCl [Reglan] 5 mg tablet 5 mg PO BID Qty: 180 3RF Entresto 97-103 mg tablet 0.5 tab PO BID Qty: 90 3RF Eliquis 5 mg tablet 5 mg PO BID Qty: 90 3RF Jardiance 10 mg tablet 10 mg PO DAILY Qty: 30 3RF vitamin E 400 unit Capsule 400 unit PO BID omega 5-liu-dda-fish oil [Fish Oil] 1,000 mg (120 mg-180 mg) Capsule 1 cap PO DAILY furosemide 40 mg tablet 40 mg PO DAILY potassium chloride 20 mEq tablet,ER particles/crystals 20 meq PO BID allopurinol 300 mg tablet 300 mg PO DAILY diphenoxylate-atropine 2.5-0.025 mg tablet 1 tab PO QID fentanyl 37.5 mcg/hour patch 72 hour See Rx Instructions .ROUTE .COMPLEX Rx Instructions: APPLY ONE PATCH TO SKIN TRANSDERMAL every 72 hours FOR 30 DAYS atorvastatin 40 mg tablet 40 mg PO DAILY isosorbide mononitrate 30 mg tablet extended release 24 hr 30 mg PO QPM clopidogrel 75 mg tablet 75 mg PO QAM spironolactone 25 mg tablet 25 mg PO QAM metoprolol tartrate 50 mg tablet 50 mg PO BID digoxin 125 mcg (0.125 mg) tablet 125 mcg PO QAM ezetimibe 10 mg tablet 10 mg PO QAM Referrals: Raymond Reddy MD [Primary Care Provider] - Coding Level of Care Code ED 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
[2023-06-09] MEDS: lidocaine 2% viscous 15 ML, aluminum-mag hydrox-simethicon 30 ML, sucralfate oral liq 1 GM PO (12:54)
[2023-06-09 13:02] LABS: Basophils # 0.1 10^3/uL (0.0-0.1); Basophils % 0.4 %; Eosinophils # 0.1 10^3/uL (0.0-0.8); Eosinophils % 0.5 %; Lymphocytes # 1.3 10^3/uL (0.8-4.8); Lymphocytes % 9.2 %; Mean Corpuscular HGB Conc 33.7 g/dL (30-55); Mean Corpuscular Hemoglobin 31.3 pg (27-33); Mean Corpuscular Volume 92.8 fl (82-101); Mean Platelet Volume 10.6 fL (7.4-10.4); Monocytes # 0.5 10^3/uL (0.2-0.9); Monocytes % 3.9 %; Neutrophils # 11.62 10^3/uL (1.8-7.7); Neutrophils % 85.3 %; Nucleated Red Blood Cells % 0 %; Platelet Count 242 10^3/cmm (157-399); Red Blood Count 5.28 10^6/uL (3.85-5.65); Red Cell Distribution Width 13.9 % (12.1-15.1); White Blood Count 13.61 10^3/uL (3.29-11.43)
[2023-06-09] MEDS: ondansetron 2 mg/ML SDV 2 mL 4 MG IVP (13:05)
[2023-06-09 13:14] LABS: INR 1.82 (0.8-1.2)
[2023-06-09 13:20] LABS: Troponin(5th) Baseline 51 ng/L (0-15)
[2023-06-09 13:23] LABS: Alanine Aminotransferase 15 U/L (0-41); Albumin Level 4.4 g/dL (3.5-5.2); Alkaline Phosphatase 104 U/L (40-130); Anion Gap 23.4 (5-19); Aspartate Amino Transferase 19 U/L (0-40); Blood Urea Nitrogen 42 mg/dL (8-23); Calcium 9.6 mg/dL (8.5-10.5); Carbon Dioxide 20 mmol/L (22-29); Chloride 98 mmol/L (98-107); Creatinine Clr Calc Pharmacy 24.4686; Glucose 127 mg/dL (65-115); Lipase 16 U/L (13-60); Osmolality Calculated 296 mOsm/kg (285-295); Potassium 4.4 mmol/L (3.5-5.1); Sodium 137 mmol/L (136-145); Total Bilirubin 1.1 mg/dL (0.15-1.2); Total Protein 7.4 g/dL (6.6-8.7)
[2023-06-09 13:24] LABS: Digoxin 1.7 ng/mL (0.6-1.2)
[2023-06-09] MEDS: sodium chloride 0.9% 1,000 ML 999 ML IV (13:48)
--- NOTE | 2023-06-09 14:34 | ECG_ITS ---
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 Measurements Intervals [place] Rate: 62 P: 0 CA: 0 QRS: -71 QRSD: 162 T: 111 QT: 447 QTc: 455 Interpretive Statements ATRIAL FIBRILLATION ELECTRONIC VENTRICULAR PACEMAKER -- CONTOUR ANALYSIS BASED ON INTRINSIC RHYTHM INTRAVENTRICULAR CONDUCTION DELAY [130+ ms QRS DURATION] Electronically Signed On 06-09-2023 17:40:29 CDT by Rene Hickey M.D. [id number]
[2023-06-09 14:59] LABS: Troponin 5 2HR 48.14 ng/L (0-15); Troponin 5 2HR Delta -2.86 ABS# (0-10)
--- NOTE | 2023-06-09 16:45 | PM.HP ---
Providers/Chief Complaint Admitting Physician: Nicolette Orozco MD Primary Care Provider: Raymond Reddy MD Chief Complaint: chest pains History of Present Illness Stanislav Wu is a 83 year old male with history of CAD, multiple myocardial infarctions and PCI's, cardiomyopathy with EF of 25%, s/p ICD, congestive heart failure, atrial fibrillation on Eliquis, hypertension, GERD, dyslipidemia, chronic kidney disease was brought in by the family for complaint of diarrhea since 3 weeks and vomiting since this morning. Patient is hearing impaired and he forgot his hearing aids at home. Unable to obtain further history. His and [id number] at bedside, reports him having watery diarrhea which is not foul-smelling and does not contain mucus since 3 weeks. He was prescribed some medications by his PCP, but did not have any relief. He has associated loss of appetite and abdominal pain but denies any fever. No history of sick contacts in the family. He was also having vomiting since this morning and c/o bilateral chest pain. He has been having generalized weakness since last 3 weeks. Denies any complaint of cold cough nausea fever shortness of breath or dizziness. Review of Systems General: Reports: ROS unobtainable due to medical condition Medications/Allergies Home Medications Medication Instructions Recorded Confirmed Last Taken Type ascorbic acid (vitamin C) 500 mg 500 mg PO BID@06,03/08/20 06/09/23 06/09/23 History tablet,extended release vitamin E 268 mg (400 unit) capsule 400 unit PO BID 05/02/20 06/09/23 06/09/23 History wheeled walker #1 ea 09/17/20 06/09/23 Unknown Rx pantoprazole 40 mg tablet,delayed 40 mg PO QAM #90 tabs 01/02/21 06/09/23 06/09/23 Rx release nitroglycerin 0.4 mg sublingual 0.4 mg sublingual Q5M PRN Chest 03/29/21 06/09/23 Unknown Rx tablet Pain #25 tabs cpap #1 ea 06/13/21 06/09/23 Unknown Rx meloxicam 15 mg tablet 15 mg PO DAILY #90 tabs 06/27/21 06/09/23 06/09/23 Rx metoclopramide HCl 5 mg tablet 5 mg PO BID #180 tabs 11/11/21 06/09/23 06/09/23 Rx (Reglan) allopurinol 300 mg tablet 300 mg PO DAILY 03/31/22 06/09/23 06/09/23 History furosemide 40 mg tablet 40 mg PO DAILY 03/31/22 06/09/23 06/09/23 History omega 6-czs-tzp-fish oil 1,000 mg 1 cap PO DAILY 03/31/22 06/09/23 06/09/23 History (120 mg-180 mg) capsule (Fish Oil) potassium chloride 20 mEq 20 meq PO BID 03/31/22 06/09/23 06/09/23 History tablet,extended release(part/cryst) sacubitril 97 mg-valsartan 103 mg 0.5 tab PO BID #90 tabs 02/17/23 06/09/23 06/09/23 Rx tablet (Entresto) apixaban 5 mg tablet (Eliquis) 5 mg PO BID #90 tabs 04/14/23 06/09/23 06/09/23 Rx empagliflozin 10 mg tablet 10 mg PO DAILY #30 tabs 04/23/23 06/09/23 06/09/23 Rx (Jardiance) atorvastatin 40 mg tablet 40 mg PO DAILY 06/09/23 06/09/23 06/09/23 History clopidogrel 75 mg tablet 75 mg PO QAM 06/09/23 06/09/23 06/09/23 History digoxin 125 mcg (0.125 mg) tablet 125 mcg PO QAM 06/09/23 06/09/23 06/09/23 History diphenoxylate-atropine 2.5 1 tab PO QID 06/09/23 06/09/23 Unknown History mg-0.025 mg tablet ezetimibe 10 mg tablet 10 mg PO QAM 06/09/23 06/09/23 06/09/23 History fentanyl 37.5 mcg/hour transdermal See Rx Instructions .Route .COMPLEX 06/09/23 06/09/23 Unknown History patch isosorbide mononitrate 30 mg 30 mg PO QPM 06/09/23 06/09/23 06/08/23 History tablet,extended release 24 hr metoprolol tartrate 50 mg tablet 50 mg PO BID 06/09/23 06/09/23 06/09/23 History spironolactone 25 mg tablet 25 mg PO QAM 06/09/23 06/09/23 06/09/23 History Allergies Allergy/AdvReac Type Severity Reaction Status Date / Time No Known Allergies Allergy Verified 04/21/23 09:50 PFSH Acute PFSH: Medical History Acute on chronic systolic heart failure, NYHA class 4 Mediastinal adenopathy Acute exacerbation of CHF (congestive heart failure) Chronic kidney disease Ischemic cardiomyopathy Cardiac arrest High risk for any kind of surgical intervention, because of history of cardiac arrest with general anesthesia VENU (stress urinary incontinence), male Cardiac LV ejection fraction >40% Erectile dysfunction History of prostate cancer Congestive heart failure Osteoarthritis Atrial fibrillation Mitral valve regurgitation Atherosclerotic heart disease [place] coronary artery w/angina pectoris Echocardiogram from 03/01/2020 is as followsLeft ventricle is mildly dilated. LV systolic function is moderately reduced with EF of 35 to 40%. There is severe hypokinesis of anterior and apical peña. Diastolic function is indeterminate because of atrial fibrillation. There is mild to moderate mitral regurgitation. Mild aortic regurgitation is seen. Mild pulmonic regurgitation is present. RVSP is 45 to 50 mmHg consistent with moderate pulmonary hypertension. Compared to prior study from 06/30/2018, LV systolic function is now further decreased to 35 to 40%. Ischemic cardiomyopathy History of 16 stents Dyslipidemia (high LDL; low HDL) Benign essential hypertension with target blood pressure below 140/90 Arteriosclerotic vascular disease Hiatal hernia Gout Essential (primary) hypertension GERD (gastroesophageal reflux disease) Hx of angiography Surgical History AICD (automatic cardioverter/defibrillator) present History of carpal tunnel release RIGHT June 22, 2015, Dr. Oliveira History of prostatectomy S/P PTCA (percutaneous transluminal coronary angioplasty) History of left hip replacement History of left shoulder replacement History of appendectomy History of hemorrhoidectomy History of inguinal hernia repair Family History Brother CAD (coronary artery disease) Diabetes Heart disease Father CAD (coronary artery disease) Heart disease Sister CAD (coronary artery disease) Cancer Diabetes Heart disease Mother Diabetes Stroke Grandmother Diabetes Denies family history of Clotting disorder Dementia Chronic kidney disease (CKD) Suicide Anesthesia complication Bleeding disorder Lung disease Social History Smoking and tobacco/nicotine status: former use of tobacco/nicotine Alcohol intake: never Substance/Drug Use: never Marital status: Current occupational status: retired Vitals/I&O/Wt Last Vital Signs Temp 97.9 F 06/09/23 12:17 Pulse 87 06/09/23 14:21 Resp 22 H 06/09/23 13:51 BP 101/64 06/09/23 16:11 Pulse Ox 94 06/09/23 14:21 O2 Del Method Room Air 06/09/23 15:51 06/09/23 06/09/23 06/09/23 06:59 14:59 22:59 Intake Total 1000 / 1000 Balance 1000 / 1000 Weight last 48 hrs Weight 74.843 kg Physical Exam Narrative: He is alert awake oriented x 3, hearing impaired, not in acute distress Respiratory chest clear to auscultation bilaterally Cardiovascular normal heart sounds no murmurs, ICD in place Abdomen soft nontender nondistended normal bowel sounds Extremities no edema noted Data 06/09/23 12:36 06/09/23 12:36 CT Abd/Pel: Radiologist's impression: MPRESSION: 1. No evidence of fluid collection or abscess in the abdomen or pelvis. 2. Cholelithiasis with prominent laminated gallstone measuring 2.7 cm. No significant gallbladder wall thickening or pericholecystic fluid. 3. Small to moderate esophageal hernia. 4. Sigmoid diverticulosis. No evidence of acute diverticulitis. 5. Stable LEFT renal lesions compared to 03/31/2022. 6. No other acute findings. 7. Prior appendectomy. Postoperative LEFT LUIS. Prior prostatectomy. CXR: Radiologist's impression: no acute cardiopulmonay findings A&P Assessment and plan (1) Vomiting: (2) Acute kidney injury: (3) Hypotension: Qualifiers: Hypotension type: unspecified hypotension type Qualified Code(s): I95.9 - Hypotension, unspecified (4) Lower abdominal pain: (5) Diarrhea: Plan 83-year-old with multiple medical issues was brought in by family for complaint of diarrhea for 3 weeks and vomiting since 1 day. 1. Diarrhea and vomiting Likely secondary to severe acute gastritis versus infection given leucocytosis. Will get stool studies to rule out acute colitis IV fluids at 100 mm/h IV Protonix gram twice daily IV Zofran 4 mg every 8 hours P.o. Lactobacillus 1 tab twice daily Clear liquid diet Will hold off on antibiotics for now. 2. Acute on chronic renal failure with craetinine of 2.3 baseline craetinine is 1.4. Likely secondary to dehydration Hold lasix for now. Will continue IV fluids and monitor BMP 3. Resume home medications 4. DVT prophylaxis, he is already on p.o. Eliquis 5. GI prophylaxis, continue IV Protonix 6. CODE STATUS discussed with patient and family at bedside, he is full code for now Attestations Medical Necessity Statement*: He needs continued hospitalization for more than 2 midnights for management of diarrhea and acute renal failure with IV fluids and IV Protonix and Zofran. Stool studies to be done to rule out infectious causes Time Spent in Patient Care: 30 minutes Coding Level of Care Code Acute Code for [facility] Fwd Diagnoses Vomiting R11.10 Acute kidney injury N17.9 Hypotension, unspecified hypotension type I95.9 Hypotension type: unspecified hypotension type Lower abdominal pain R10.30 Diarrhea R19.7 Time Spent (min) 30
[2023-06-09] MEDS: sacubitril/valsartan 24-26 mg Tablet 2 EACH PO (17:40)
[2023-06-09] MEDS: isosorbide mononitrate ER 30 mg Tablet PO (17:40)
[2023-06-09] MEDS: lactobacillus 1 Tablet 1 TAB PO (17:40)
[2023-06-09] MEDS: potassium chloride ER 20 mEq Tablet PO (17:40)
[2023-06-09] MEDS: apixaban 5 mg Tablet PO (17:40)
[2023-06-09] MEDS: sodium chloride 0.9% 1,000 ML 100 ML IV (17:41)
[2023-06-09] MEDS: pantoprazole 40 mg SDV IVP (17:45)
--- NOTE | 2023-06-09 18:13 | ECG_ITS ---
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 Measurements Intervals [place] Rate: 66 P: 0 AR: 0 QRS: -76 QRSD: 204 T: 102 QT: 453 QTc: 477 Interpretive Statements ELECTRONIC VENTRICULAR PACEMAKER ABNORMAL RHYTHM ECG Compared to ECG 06/09/2023 14:34:05 Intraventricular conduction delay no longer present Electronically Signed On 06-10-2023 15:29:18 CDT by Carl Rapp M.D. [id number]
[2023-06-09 18:58] LABS: Troponin 5 6HR 52.97 ng/L (0-15); Troponin 5 6HR Delta 1.97 ng/L (0-12)
[2023-06-10] VITALS (20 sets, daily range): BP systolic 70–116; BP diastolic 40–65; PULSE 52–91; RESP 16–24; TEMP 36.6–37.6; O2SAT 90–97
[2023-06-10] MEDS: sodium chloride 0.9% 1,000 ML 100 ML IV ×3 (03:20→21:26)
[2023-06-10] MEDS: pantoprazole 40 mg SDV IVP ×2 (05:37→18:11)
[2023-06-10] MEDS: ezetimibe 10 mg Tablet PO (05:37)
[2023-06-10] MEDS: clopidogrel 75 mg Tablet PO (05:37)
[2023-06-10] MEDS: spironolactone 25 mg Tablet PO (05:37)
[2023-06-10] MEDS: digoxin 125 mcg Tablet PO (05:38)
[2023-06-10 05:45] LABS: Basophils # 0.1 10^3/uL (0.0-0.1); Basophils % 0.3 %; Hematocrit 42.6 % (37-53); Lymphocytes % 3.3 %; Mean Corpuscular HGB Conc 33.3 g/dL (30-55); Mean Corpuscular Hemoglobin 31.6 pg (27-33); Mean Corpuscular Volume 94.7 fl (82-101); Mean Platelet Volume 10.7 fL (7.4-10.4); Monocytes # 1.4 10^3/uL (0.2-0.9); Monocytes % 4.6 %; Neutrophils # 28.31 10^3/uL (1.8-7.7); Nucleated Red Blood Cells % 0 %; Platelet Count 171 10^3/cmm (157-399)
[2023-06-10 06:01] LABS: White Blood Count 31.11 10^3/uL (3.29-11.43)
[2023-06-10 06:07] LABS: Anion Gap 15.3 (5-19); Blood Urea Nitrogen 42 mg/dL (8-23); Calcium 8.3 mg/dL (8.5-10.5); Carbon Dioxide 21 mmol/L (22-29); Chloride 101 mmol/L (98-107); Creatinine Clr Calc Pharmacy 23.4233; Glucose 107 mg/dL (65-115); Magnesium 1.9 mg/dL (1.7-2.3); Osmolality Calculated 287 mOsm/kg (285-295); Potassium 4.3 mmol/L (3.5-5.1); Sodium 133 mmol/L (136-145)
[2023-06-10] MEDS: ketorolac 30 mg/mL INJ IVP ×2 (08:33→18:11)
[2023-06-10] MEDS: ondansetron 2 mg/ML SDV 2 mL 4 MG IVP (08:34)
[2023-06-10] MEDS: ciprofloxacin 400 MG/200 ML PREMIX 200 MG IV ×2 (08:39→21:25)
[2023-06-10] MEDS: metroNIDAZOLE IV 500 MG/100 ML PREMIX 100 MG IV ×2 (08:40→14:56)
[2023-06-10] MEDS: sacubitril/valsartan 24-26 mg Tablet 2 EACH PO ×2 (09:26→17:30)
[2023-06-10] MEDS: apixaban 5 mg Tablet PO ×2 (09:26→17:30)
[2023-06-10] MEDS: atorvastatin 40 mg Tablet PO (09:27)
[2023-06-10] MEDS: allopurinol 300 mg Tablet PO (09:27)
[2023-06-10] MEDS: lactobacillus 1 Tablet 1 TAB PO ×2 (09:27→17:30)
[2023-06-10] MEDS: potassium chloride ER 20 mEq Tablet PO ×2 (09:27→17:30)
--- NOTE | 2023-06-10 14:11 | P.PN_ITS ---
Subjective 2 Subjective: no acute overnight events noted. Seen at bedside this morning, c/o abdominal pain which was relieved with a dose of IV toradol 30mg. still had watery diarrhea and vomiting x1 this morning. He is been afebrile Medications: Reviewed: Yes Vitals/I&O/Wt Last Vital Signs Temp 97.8 F 06/10/23 11:45 Pulse 83 06/10/23 11:45 Resp 16 06/10/23 11:45 BP 92/56 06/10/23 11:45 Pulse Ox 94 06/10/23 11:45 O2 Del Method Room Air 06/10/23 11:45 06/09/23 06/10/23 06/10/23 22:59 06:59 14:59 Intake Total 1560 / 1560 1240 / 2800 1540 / 1540 Output Total 200 / 200 Balance 1360 / 1360 1240 / 2600 1540 / 1540 Weight last 48 hrs Weight 74.644 kg Weight 74.843 kg Physical Exam 2 Narrative: He is alert awake oriented x 3, hearing impaired, not in acute distress Respiratory chest clear to auscultation bilaterally Cardiovascular normal heart sounds no murmurs, ICD in place Abdomen soft nontender nondistended normal bowel sounds Extremities no edema noted Data 06/10/23 05:02 06/10/23 05:02 Micro: Microbiology 06/10/23 07:30 Stool Lactoferrin - Final Stool - Stool Aspirate A&P Assessment and plan (1) Vomiting: (2) Acute kidney injury: (3) Hypotension: Qualifiers: Hypotension type: unspecified hypotension type Qualified Code(s): I95.9 - Hypotension, unspecified (4) Lower abdominal pain: (5) Diarrhea: Plan 83-year-old with multiple medical issues was brought in by family for complaint of diarrhea for 3 weeks and vomiting since 1 day. 1. Diarrhea and vomiting Likely secondary to severe acute gastritis versus infection given leucocytosis. WBC elevated 13 to 31 today, will repeat at 4pm again will give IV ciprofloxacin 400mg bid and flagyl 500mg Q8H due to worsening leucocytosis. follow up stool studies IV fluids at 100 mm/h IV Protonix 40mg twice daily IV Zofran 4 mg every 8 hours P.o. Lactobacillus 1 tab twice daily Clear liquid diet 2. Acute on chronic renal failure with creatinine of 2.4 baseline craetinine is 1.4. Likely secondary to dehydration Hold lasix for now. Will continue IV fluids and monitor BMP 3. Resume home medications 4. DVT prophylaxis, he is already on p.o. Eliquis 5. GI prophylaxis, continue IV Protonix 6. CODE STATUS discussed with patient and family at bedside, he is full code for now Attestations 2 Medical Necessity Statement*: He needs continued hospitalization for management of ongoing diarrhea and vomiting with IV antibiotics and IV fluids. Also needs treatment for acute on chronic renal failure secondary to dehydration with IV fluids Time Spent in Patient Care: 15 minutes Coding Level of Care Code Acute Code for [facility] Fwd Diagnoses Vomiting R11.10 Acute kidney injury N17.9 Hypotension, unspecified hypotension type I95.9 Hypotension type: unspecified hypotension type Lower abdominal pain R10.30 Diarrhea R19.7 Time Spent (min) 15
[2023-06-10] MEDS: isosorbide mononitrate ER 30 mg Tablet PO (17:30)
[2023-06-10 17:49] LABS: C.Diff PCR (Lab) NEGATIVE (Negative)
[2023-06-10 20:24] LABS: Basophils # 0.1 10^3/uL (0.0-0.1); Basophils % 0.2 %; Hematocrit 39.8 % (37-53); Lymphocytes # 0.6 10^3/uL (0.8-4.8); Lymphocytes % 2.2 %; Mean Corpuscular HGB Conc 33.2 g/dL (30-55); Mean Corpuscular Hemoglobin 31.7 pg (27-33); Mean Corpuscular Volume 95.4 fl (82-101); Mean Platelet Volume 10.7 fL (7.4-10.4); Monocytes % 3.8 %; Neutrophils # 24.85 10^3/uL (1.8-7.7); Nucleated Red Blood Cells % 0 %; Platelet Count 151 10^3/cmm (157-399); Red Blood Count 4.17 10^6/uL (3.85-5.65); Red Cell Distribution Width 14.1 % (12.1-15.1); White Blood Count 27.02 10^3/uL (3.29-11.43)
[2023-06-10] MEDS: sodium chloride 0.9% 500 ML 999 ML IV (21:26)
--- NOTE | 2023-06-10 21:51 | PC.NURSE ---
Patient had a blood pressure of 70/40 manually. This nurse called Dr. Feliciano and received orders for a 500ml bolus of normal saline. Bolus was given and blood pressure was 78/50. Notified Dr. Feliciano of blood pressure. Dr. Feliciano transferred patient to ICU. notified of transfer.
[2023-06-10] MEDS: norepinephrine 4 MG/250 ML BAG 7.5 MG IV (21:59)
--- NOTE | 2023-06-10 22:10 | PM.CCNAC ---
Critical Care Event Note The high probability of a clinically significant, sudden or life threatening deterioration of the patient's [cardiovascular,GI, infectious] system(s) required my full and direct attention, intervention and personal management. The critical care time is as shown. This time is in addition to time spent performing any reported procedures but includes the following: [x] Data and vital sign review and interpretation [x] Patient assessment, examination and intervention [x] Documentation [x] Medication orders and management Called by patient's nurse at 8 PM the patient's blood pressure has been running low. Reported a blood pressure of 70/45. He was ordered for a 500 cc bolus of normal saline however there was no change in blood pressure. It persisted to 78/50. Patient was moved into the ICU and started on Levophed infusion. Reviewing the blood pressure trend from this morning, patient has been running systolic blood pressure between 87-96 since 5 PM last evening. Reportedly patient was asymptomatic until 9 PM tonight when he started to become more lethargic. On examination at this time. He is c/o worsened pain in the RUQ worsened with inspiration. Toradol not helping tonight. Blood pressure 78/50, heart rate 78/min, temperature 99.6 ?F, O2 sat 93% on room air He is alert, awake, oriented, very hard of hearing GENERAL: Awake, alert, oriented, in no acute distress. [] HEENT: Normocephalic, atraumatic, PERRLA. [] CHEST: Clear to auscultation bilaterally. [] CVS: S1, S2 normal. No murmur, rubs, gallops. Peripheral pulses palpable. [] ABDOMEN: Soft, tender to palpation RUQ. + distended. Bowel sounds heard. [] NEUROVASCULAR: Awake, alert. Power 5/5 all extremities. DTR+ [] EXTREMITIES: No edema. [] Review of chart shows patient has been admitted with nausea vomiting and diarrhea. White count increased from 13,000-31,000 today. Acute kidney injury has worsened. He has been on IV fluids normal saline at 100 cc an hour. He was started on IV ciprofloxacin and IV metronidazole this morning. C. difficile PCR returned negative. Pending several other stool studies. Concerned that patient may be developing sepsis. Check stat CBC, CMP, lactate, blood culture, urine analysis and urine culture in case of a positive UA. Check BNP. Would not repeat further IV fluid boluses given history of heart failure, last known ejection fraction of 30% from 2020. I do not see a more recent echocardiogram on file. It appears patient had complained of some chest pain upon admission. Troponin series has been 51--> 48--> 52, less concerning for ACS. EKG has shown a paced rhythm. Patient is on Eliquis 5 mg p.o. twice daily chronically for history of atrial fibrillation, low concern for PE. hold several medications including Entresto, Imdur, Aldactone. This will additionally avoid further kidney injury. Review of chart shows patient last received Entresto at 5:30 PM, Aldactone at 5:30 AM, Imdur at 5:30 PM. Medications may have potentially contributed to hypotension additionally. Broaden antibiotic coverage to meropenem and vancomycin while pending above infectious evaluation. Repeat C. difficile PCR. Check US RUQ for cholecystitis X ray abdomen to evaluate for perforation Critical Care Time Code activated: No Critical Care Time (min): 60 Coding Level of Care Code Critical Care
--- NOTE | 2023-06-10 22:40 | XRR_ITS ---
PROCEDURE INFORMATION: Exam: XR Abdomen Exam date and time: 06/10/2023 11:54 PM Age: 83 years old Clinical indication: Nausea and vomiting; Prior surgery; Surgery date: 6+ months; Surgery type: Hernia, appendectomy, prostate; Additional info: Evaluate for perfortaion/ileus, increased distension, nvd, evlaute for perforation vs ileus TECHNIQUE: Imaging protocol: Radiologic exam of the abdomen. Views: Frontal supine view of the abdomen. 1 View. COMPARISON: CT abdomen pelvis con [id number] 06/09/2023 1:35 PM FINDINGS: Tubes, catheters and devices: Right heart chamber ICD leads are present. Numerous bilateral pelvic surgical clips. Gastrointestinal tract: Diffuse gas-filled small bowel and large bowel. The right colon is mildly dilated. Negative for pneumatosis intestinalis. Intraperitoneal space: Negative for pneumoperitoneum. Bones/joints: Lumbar spondyloarthropathy. Partially included left hip arthroplasty. XR/XR abdomen 1V* [id number] IMPRESSION: Bowel gas pattern is nonspecific. There is mild generalized gaseous distension of small and large bowel.
--- NOTE | 2023-06-10 22:40 | US_ITS ---
WS: [id number] RIGHT UPPER QUADRANT ULTRASOUND HISTORY: evaluate for cholecytsitis COMPARISON: 06/09/2023 CT Liver: 14.7 cm in length. Normal size liver and echogenicity. No bile duct dilatation or mass. Portal Vein: Normal hepatopetal flow with monophasic waveform. Gallbladder: Mildly hydropic gallbladder. There is mild thickening and irregularity of the gallbladde r wall but no fluid. There is a single calcification in the gallbladder measuring 2.9 cm. CBD: 0.6 cm Pancreas: Completely obscured. Right kidney: 10.3 cm in length. Normal size and echogenicity. No hydronephrosis or mass. Aorta and IVC: Unremarkable abdominal aorta and IVC. Sliver amount of ascites at the Morison's pouch. IMPRESSION: 1. Cholelithiasis in a mildly hydropic gallbladder. There is mild diffuse wall thickening which may be chronic. No pericholecystic fluid. 2. No bile duct dilatation.
[2023-06-10] MEDS: meropenem 1,000 MG in sodium chloride 0.9% (plus) 50 ML 100 MG IV (22:51)
[2023-06-10 23:01] LABS: Basophils # 0.1 10^3/uL (0.0-0.1); Basophils % 0.2 %; Hematocrit 43.5 % (37-53); Lymphocytes # 0.9 10^3/uL (0.8-4.8); Mean Corpuscular HGB Conc 32.6 g/dL (30-55); Mean Corpuscular Hemoglobin 31.8 pg (27-33); Mean Corpuscular Volume 97.3 fl (82-101); Mean Platelet Volume 11.3 fL (7.4-10.4); Monocytes # 0.6 10^3/uL (0.2-0.9); Neutrophils # 26.31 10^3/uL (1.8-7.7); Neutrophils % 93.1 %; Nucleated Red Blood Cells % 0 %; Platelet Count 168 10^3/cmm (157-399); Red Blood Count 4.47 10^6/uL (3.85-5.65); Red Cell Distribution Width 14.4 % (12.1-15.1); White Blood Count 28.31 10^3/uL (3.29-11.43)
[2023-06-10] MEDS: vancomycin 1,000 MG in sodium chloride 0.9% 250 ML 250 MG IV (23:19)
[2023-06-10 23:22] LABS: Lactate (Lactic Acid level) 2.2 mmol/L (0.5-2.2)
[2023-06-10 23:32] LABS: Albumin Level 2.9 g/dL (3.5-5.2); Alkaline Phosphatase 122 U/L (40-130); Blood Urea Nitrogen 41 mg/dL (8-23); Calcium 7.8 mg/dL (8.5-10.5); Carbon Dioxide 17 mmol/L (22-29); Chloride 101 mmol/L (98-107); Creatinine Clr Calc Pharmacy 24.4417; Globulin 2.9 g/dL (1.3-4.6); Glucose 135 mg/dL (65-115); NT Pro B Type Natriuretic Pept 16597 pg/mL (0-450); Osmolality Calculated 280 mOsm/kg (285-295); Sodium 129 mmol/L (136-145); Total Bilirubin 0.8 mg/dL (0.15-1.2); Total Protein 5.8 g/dL (6.6-8.7)
--- NOTE | 2023-06-10 23:41 | PC.NURSE ---
Labs Notified Dr. Feliciano of lactate of 2.2, order given to continue IVF at 100ml/h and monitor closely for fluid overload and to check an amylase level.
[2023-06-10 23:48] LABS: Alanine Aminotransferase 10 U/L (0-41); Aspartate Amino Transferase 25 U/L (0-40)
[2023-06-11] VITALS (88 sets, daily range): BP systolic 83–137; BP diastolic 49–84; PULSE 35–105; RESP 12–31; TEMP 36.8–38; O2SAT 89–97
[2023-06-11 01:53] LABS: Add Urine Microscopic? YES; Bilirubin Urine Neg (Negative); Blood Urine Trace (Negative); Glucose Urine UA 4+ (Normal); Ketones Urine Negative (Negative); Leukocyte Esterase Urine Negative (Negative); Nitrate Urine Negative (Negative); Protein Urine Neg (Negative); Specific Gravity, Urine 1.015 (1.005-1.030); Urine Appearance Clear (CLEAR); Urine Color Yellow (Yellow); Urobilinogen Urine Neg (Negative); pH Urine 5 (5-7)
[2023-06-11 01:54] LABS: Add Urine Culture? No; Bacteria Urine TRACE /hpf; Mucus Urine 1+ /hpf; Squamous Epithelial Cell Urine 0-4 /hpf (0-5)
[2023-06-11] MEDS: pantoprazole 40 mg SDV IVP ×2 (05:05→17:34)
[2023-06-11] MEDS: digoxin 125 mcg Tablet PO (05:46)
[2023-06-11] MEDS: ezetimibe 10 mg Tablet PO (05:46)
[2023-06-11] MEDS: clopidogrel 75 mg Tablet PO (05:46)
[2023-06-11 06:26] LABS: Lactate (Lactic Acid level) 1.3 mmol/L (0.5-2.2)
[2023-06-11] MEDS: sodium chloride 0.9% 1,000 ML 100 ML IV ×2 (09:20→19:56)
[2023-06-11] MEDS: meropenem 1,000 MG in sodium chloride 0.9% (plus) 50 ML 100 MG IV ×2 (09:21→22:27)
[2023-06-11 09:24] LABS: Glucose Point of Care 136 mg/dL (70-110)
[2023-06-11] MEDS: allopurinol 300 mg Tablet PO (09:30)
[2023-06-11] MEDS: atorvastatin 40 mg Tablet PO (09:30)
[2023-06-11] MEDS: lactobacillus 1 Tablet 1 TAB PO ×2 (09:30→17:33)
[2023-06-11] MEDS: apixaban 5 mg Tablet PO ×2 (09:30→17:33)
[2023-06-11] MEDS: potassium chloride ER 20 mEq Tablet PO ×2 (09:30→17:33)
[2023-06-11 12:19] LABS: Glucose Point of Care 135 mg/dL (70-110)
--- NOTE | 2023-06-11 15:36 | P.PN_ITS ---
Subjective 2 Subjective: Last night he complained of abdominal pain and started become lethargic. He was found to be hypotensive , nonresponsive to 500 mL NS bolus. He was transferred to ICU for Levophed drip and monitoring. Sepsis workup done and he was started on broad-spectrum IV meropenem and vancomycin. Seen at bedside this morning, he reports abdominal pain improved and he did not have any diarrhea episodes since last night. He denies any nausea or vomiting. Medications: Reviewed: Yes Vitals/I&O/Wt Last Vital Signs Temp 98.6 F 06/11/23 12:00 Pulse 79 06/11/23 15:30 Resp 22 H 06/11/23 15:30 BP 102/62 06/11/23 15:30 Pulse Ox 93 06/11/23 14:45 O2 Del Method Room Air 06/11/23 12:00 06/11/23 06/11/23 06/11/23 06:59 14:59 22:59 Intake Total 341.25 / 3816.667 1050 / 1050 Output Total 500 / 500 120 / 120 Balance -158.75 / 3316.667 930 / 930 Weight last 48 hrs Weight 76.476 kg Weight 74.644 kg Physical Exam 2 Narrative: He is alert awake oriented x 3, hearing impaired, not in acute distress Respiratory chest clear to auscultation bilaterally Cardiovascular normal heart sounds no murmurs, ICD in place Abdomen soft tender in epigastric and right upper quadrant ,distended with hyperactive bowel sounds Extremities no edema noted Data 06/10/23 22:47 06/10/23 22:47 Micro: Microbiology 06/10/23 22:54 Blood Culture - Preliminary Blood SPECIMEN COLLECTED 06/10/23 22:47 Blood Culture - Preliminary Blood SPECIMEN COLLECTED A&P Assessment and plan (1) Vomiting: (2) Acute kidney injury: (3) Hypotension: Qualifiers: Hypotension type: unspecified hypotension type Qualified Code(s): I95.9 - Hypotension, unspecified (4) Lower abdominal pain: (5) Diarrhea: Plan 83-year-old with multiple medical issues was brought in by family for complaint of diarrhea for 3 weeks and vomiting since 1 day. He was found to be hypotensive with worsening abdominal pain and was transferred to ICU for further workup for sepsis and Levophed drip. 1. Hypotension secondary to dehydration , medication induced and acute colitis Leukocytosis improving from 31-28, creatinine is 2.3. Lactate negative BNP 16 597, elevated BNP in view of hypotension, no need for IV Lasix therapy. In view of hypotension and sepsis, will continue with IV meropenem and vancomycin for now Continue Levophed drip to keep a MAP of 75. Check 2D echo Abdominal x-ray done showed no signs of ileus Given right upper quadrant pain and positive Berger sign ,USG abdomen showed no acute cholecystitis follow up stool studies IV fluids at 100 mm/h IV Protonix 40mg twice daily IV Zofran 4 mg every 8 hours P.o. Lactobacillus 1 tab twice daily Clear liquid diet Family, at bedside, explained to her about the current medical condition and plan of care. 2. Acute on chronic renal failure with creatinine of 2.3 baseline craetinine is 1.4. Likely secondary to dehydration Hold lasix, entresto, imdur, spironolactone and metoprolol Will continue IV fluids and monitor BMP 3. DVT prophylaxis, he is already on p.o. Eliquis 4. GI prophylaxis, continue IV Protonix 5. CODE STATUS he is full code for now Attestations 2 Medical Necessity Statement*: He needs continued hospitalization for IV fluids and antibiotics for acute colitis and hemodynamic support with Levophed Time Spent in Patient Care: 20 minutes Coding Level of Care Code Acute Code for [facility] Diagnoses Vomiting R11.10 Acute kidney injury N17.9 Hypotension, unspecified hypotension type I95.9 Hypotension type: unspecified hypotension type Lower abdominal pain R10.30 Diarrhea R19.7 Time Spent (min) 20
[2023-06-11 17:45] LABS: Glucose Point of Care 83 mg/dL (70-110)
[2023-06-11] MEDS: morphine 4 mg/mL SDV 1 mL 2 MG IVP (20:22)
[2023-06-11 20:31] LABS: Glucose Point of Care 86 mg/dL (70-110)
[2023-06-12] VITALS (25 sets, daily range): BP systolic 91–149; BP diastolic 62–88; PULSE 65–101; RESP 19–29; TEMP 36.9–37.8; O2SAT 91–97
[2023-06-12 04:02] LABS: Basophils % 0.2 %; Eosinophils # 0.1 10^3/uL (0.0-0.8); Eosinophils % 0.2 %; Hematocrit 43.8 % (37-53); Lymphocytes # 0.7 10^3/uL (0.8-4.8); Mean Corpuscular HGB Conc 32.4 g/dL (30-55); Mean Corpuscular Hemoglobin 31.1 pg (27-33); Mean Corpuscular Volume 95.8 fl (82-101); Monocytes # 0.6 10^3/uL (0.2-0.9); Monocytes % 2.9 %; Neutrophils # 20.03 10^3/uL (1.8-7.7); Neutrophils % 92.5 %; Nucleated Red Blood Cells % 0 %; Platelet Count 126 10^3/cmm (157-399); Red Blood Count 4.57 10^6/uL (3.85-5.65); Red Cell Distribution Width 14.3 % (12.1-15.1); White Blood Count 21.66 10^3/uL (3.29-11.43)
[2023-06-12 04:25] LABS: Anion Gap 12.6 (5-19); Blood Urea Nitrogen 26 mg/dL (8-23); Calcium 8.1 mg/dL (8.5-10.5); Carbon Dioxide 17 mmol/L (22-29); Chloride 108 mmol/L (98-107); Creatinine Clr Calc Pharmacy 37.8572; Glucose 88 mg/dL (65-115); Osmolality Calculated 280 mOsm/kg (285-295); Potassium 4.6 mmol/L (3.5-5.1); Sodium 133 mmol/L (136-145)
[2023-06-12] MEDS: pantoprazole 40 mg SDV IVP ×2 (05:11→17:21)
[2023-06-12] MEDS: sodium chloride 0.9% 1,000 ML 100 ML IV (05:12)
[2023-06-12] MEDS: clopidogrel 75 mg Tablet PO (05:16)
[2023-06-12] MEDS: digoxin 125 mcg Tablet PO (05:16)
[2023-06-12] MEDS: ezetimibe 10 mg Tablet PO (05:16)
[2023-06-12 08:05] LABS: Glucose Point of Care 89 mg/dL (70-110)
[2023-06-12] MEDS: potassium chloride ER 20 mEq Tablet PO ×2 (08:45→17:21)
[2023-06-12] MEDS: allopurinol 300 mg Tablet PO (08:45)
[2023-06-12] MEDS: lactobacillus 1 Tablet 1 TAB PO ×2 (08:45→17:21)
[2023-06-12] MEDS: atorvastatin 40 mg Tablet PO (08:45)
[2023-06-12] MEDS: apixaban 5 mg Tablet PO ×2 (08:49→17:21)
--- NOTE | 2023-06-12 09:26 | PC.SOCIAL ---
Pg 2 IMM Explained to pt Pg 2 IMM. No questions voiced. Provided pt a copy. Initialed, dated, & timed a copy & placed in chart.
[2023-06-12 11:18] LABS: Glucose Point of Care 176 mg/dL (70-110)
[2023-06-12 11:25] LABS: Amylase 42 U/L (21-101)
[2023-06-12] MEDS: insulin lispro 100 unit/1 mL SUBCUT (11:30)
[2023-06-12] MEDS: fentaNYL 50 mcg Patch 1 PATCH TRANSDERMA (11:30)
[2023-06-12] MEDS: meropenem 1,000 MG in sodium chloride 0.9% (plus) 50 ML 100 MG IV ×2 (11:30→21:33)
--- NOTE | 2023-06-12 13:11 | P.PN_ITS ---
Subjective 2 Subjective: No acute overnight events noted. Seen at bedside today. When asked about his abdominal pain, he states and thinks it might be referring from his back. He further reports he has been having moderate to severe back pain for a while. He had only 1 loose bowel movement this morning. Tolerated breakfast well. His systolic blood pressure has been stable in the 110s to 120s Medications: Reviewed: Yes Vitals/I&O/Wt Last Vital Signs Temp 99.2 F 06/12/23 04:00 Pulse 65 06/12/23 12:00 Resp 20 H 06/12/23 12:00 BP 98/62 06/12/23 12:00 Pulse Ox 94 06/12/23 12:00 O2 Del Method Room Air 06/12/23 06:00 06/11/23 06/12/23 06/12/23 22:59 06:59 14:59 Intake Total 1110 / 2160 1026.667 / 3186.667 Output Total 420 / 540 Balance 690 / 1620 1026.667 / 2646.667 Weight last 48 hrs Weight 76.975 kg Weight 76.476 kg Physical Exam 2 Narrative: He is alert awake oriented x 3, hearing impaired, not in acute distress Respiratory chest clear to auscultation bilaterally Cardiovascular normal heart sounds no murmurs, ICD in place Abdomen soft tender in epigastric and right upper quadrant ,distended with hyperactive bowel sounds Extremities no edema noted Data 06/12/23 03:30 06/12/23 03:30 Micro: Microbiology 06/10/23 22:54 Blood Culture - Preliminary Blood NEGATIVE TO DATE 06/10/23 22:47 Blood Culture - Preliminary Blood NEGATIVE TO DATE A&P Assessment and plan (1) Vomiting: (2) Acute kidney injury: (3) Hypotension: Qualifiers: Hypotension type: unspecified hypotension type Qualified Code(s): I95.9 - Hypotension, unspecified (4) Lower abdominal pain: (5) Diarrhea: Plan 83-year-old with multiple medical issues was brought in by family for complaint of diarrhea for 3 weeks and vomiting since 1 day. He was found to be hypotensive with worsening abdominal pain and was transferred to ICU for further workup for sepsis and Levophed drip. 1. Hypotension secondary to dehydration , medication induced and acute colitis Resolved but on a lower side inspite of holding home meds, will continue to monitor for now Leukocytosis improving to 21 today, creatinine is 1.5. Lactate negative BNP 16 597, elevated BNP in view of hypotension, no need for IV Lasix therapy. will continue with IV meropenem and vancomycin for now Check 2D echo Blood cultures negative. follow up stool studies IV fluids at 100 mm/h IV Protonix 40mg twice daily IV Zofran 4 mg every 8 hours prn P.o. Lactobacillus 1 tab twice daily advanced to soft diet. 2. Acute on chronic renal failure with creatinine of 2.3 resolving baseline craetinine is 1.4. Likely secondary to dehydration Hold lasix, entresto, imdur, spironolactone and metoprolol Will continue IV fluids and monitor BMP 3. DVT prophylaxis, he is already on p.o. Eliquis 4. GI prophylaxis, continue IV Protonix 5. CODE STATUS he is full code for now 6. will give fentanyl patch 50mcg [id number] for back pain. Attestations 2 Medical Necessity Statement*: He needs continued hospitalization for IV antibiotics and fluids for hypotension and colitis Time Spent in Patient Care: 15 minutes Coding Level of Care Code Acute Code for [facility] Fwd Diagnoses Vomiting R11.10 Acute kidney injury N17.9 Hypotension, unspecified hypotension type I95.9 Hypotension type: unspecified hypotension type Lower abdominal pain R10.30 Diarrhea R19.7 Time Spent (min) 15
[2023-06-12 18:11] LABS: Glucose Point of Care 119 mg/dL (70-110)
[2023-06-12 20:15] LABS: Glucose Point of Care 177 mg/dL (70-110)
[2023-06-12] MEDS: vancomycin 1,250 MG/250 ML PIGGYBACK 250 MG IV (22:08)
[2023-06-13] VITALS (21 sets, daily range): BP systolic 120–148; BP diastolic 70–99; PULSE 80–106; RESP 18–28; TEMP 36.6–37.1; O2SAT 93–97
[2023-06-13] MEDS: ondansetron 2 mg/ML SDV 2 mL 4 MG IVP (01:08)
[2023-06-13] MEDS: morphine 4 mg/mL SDV 1 mL 2 MG IVP (01:09)
[2023-06-13 06:00] LABS: Basophils # 0.1 10^3/uL (0.0-0.1); Basophils % 0.2 %; Eosinophils # 0.1 10^3/uL (0.0-0.8); Eosinophils % 0.5 %; Hematocrit 43.3 % (37-53); Lymphocytes # 0.8 10^3/uL (0.8-4.8); Lymphocytes % 3.5 %; Mean Corpuscular Hemoglobin 30.9 pg (27-33); Mean Corpuscular Volume 93.5 fl (82-101); Mean Platelet Volume 11.3 fL (7.4-10.4); Monocytes % 4.5 %; Neutrophils # 19.67 10^3/uL (1.8-7.7); Neutrophils % 90.7 %; Nucleated Red Blood Cells % 0 %; Platelet Count 140 10^3/cmm (157-399); Red Blood Count 4.63 10^6/uL (3.85-5.65); Red Cell Distribution Width 14.2 % (12.1-15.1); White Blood Count 21.69 10^3/uL (3.29-11.43)
[2023-06-13 06:29] LABS: Anion Gap 11.1 (5-19); Blood Urea Nitrogen 20 mg/dL (8-23); Calcium 8.7 mg/dL (8.5-10.5); Carbon Dioxide 18 mmol/L (22-29); Chloride 110 mmol/L (98-107); Glucose 97 mg/dL (65-115); NT Pro B Type Natriuretic Pept 8459 pg/mL (0-450); Osmolality Calculated 281 mOsm/kg (285-295); Potassium 5.1 mmol/L (3.5-5.1); Sodium 134 mmol/L (136-145)
[2023-06-13] MEDS: clopidogrel 75 mg Tablet PO (06:32)
[2023-06-13] MEDS: digoxin 125 mcg Tablet PO (06:32)
[2023-06-13] MEDS: ezetimibe 10 mg Tablet PO (06:32)
[2023-06-13] MEDS: pantoprazole 40 mg SDV IVP ×2 (06:32→18:10)
[2023-06-13 06:36] LABS: Creatinine Clr Calc Pharmacy 44.5049
[2023-06-13 06:49] LABS: Glucose Point of Care 102 mg/dL (70-110)
[2023-06-13 07:12] LABS: Glucose Point of Care 88 mg/dL (70-110)
[2023-06-13] MEDS: atorvastatin 40 mg Tablet PO (08:33)
[2023-06-13] MEDS: potassium chloride ER 20 mEq Tablet PO ×2 (08:33→17:26)
[2023-06-13] MEDS: apixaban 5 mg Tablet PO ×2 (08:33→17:26)
[2023-06-13] MEDS: allopurinol 300 mg Tablet PO (08:33)
[2023-06-13] MEDS: lactobacillus 1 Tablet 1 TAB PO ×2 (08:33→17:26)
[2023-06-13 08:44] LABS: Glucose Point of Care 96 mg/dL (70-110)
--- NOTE | 2023-06-13 09:56 | P.PN_ITS ---
Subjective 2 Subjective: No acute overnight events noted. He is feeling better after hide only 1 loose stools last 24 hours, tolerating diet well. He was worried about his taking care of him, and she will get PT eval in a.m.. Medications: Reviewed: Yes Vitals/I&O/Wt Last Vital Signs Temp 98.7 F 06/13/23 07:00 Pulse 106 H 06/13/23 09:00 Resp 26 H 06/13/23 09:00 BP 140/99 06/13/23 09:00 Pulse Ox 93 06/13/23 07:00 O2 Del Method Room Air 06/13/23 07:00 06/12/23 06/13/23 06/13/23 22:59 06:59 14:59 Intake Total 1000 / 1050 370 / 1420 120 / 120 Output Total 700 / 700 Balance 1000 / 1050 -330 / 720 120 / 120 Weight last 48 hrs Weight 79.917 kg Weight 76.975 kg Physical Exam 2 Narrative: He is alert awake oriented x 3, hearing impaired, not in acute distress Respiratory chest clear to auscultation bilaterally Cardiovascular normal heart sounds no murmurs, ICD in place Abdomen soft tender in epigastric and right upper quadrant nondistended normal bowel sounds Extremities no edema noted Data 06/13/23 04:15 06/13/23 04:15 A&P Assessment and plan (1) Vomiting: (2) Acute kidney injury: (3) Hypotension: Qualifiers: Hypotension type: unspecified hypotension type Qualified Code(s): I95.9 - Hypotension, unspecified (4) Lower abdominal pain: (5) Diarrhea: Plan 83-year-old with multiple medical issues was brought in by family for complaint of diarrhea for 3 weeks and vomiting since 1 day. He was found to be hypotensive with worsening abdominal pain and was transferred to ICU for further workup for sepsis and Levophed drip. 1. Hypotension secondary to dehydration , medication induced and acute colitis Resolved but on a lower side inspite of holding home meds, will continue to monitor for now Leukocytosis improving to 21 today, creatinine is 1.3 back to baseline. BNP 16 597 improved to 8000, elevated BNP in view of hypotension, no need for IV Lasix therapy. will continue with IV meropenem and discontinue IV vancomycin in view of negative blood cultures Transfer to medical floor follow up stool studies IV fluids at 100 mm/h IV Protonix 40mg twice daily IV Zofran 4 mg every 8 hours prn P.o. Lactobacillus 1 tab twice daily Soft diet 2. Acute on chronic renal failure with creatinine of 2.3 resolved Hold lasix, entresto, imdur, spironolactone and metoprolol for now given an episode of hypotension Will continue IV fluids and monitor BMP 3. DVT prophylaxis, he is already on p.o. Eliquis 4. GI prophylaxis, continue IV Protonix 5. CODE STATUS he is full code for now 6. On fentanyl patch 50mcg [id number] for back pain. Discharge planning-need PT eval Attestations 2 Medical Necessity Statement*: He needs continued hospitalization for IV antibiotics and follow-up of stool studies. Plan to discharge home once the stool studies are reported Time Spent in Patient Care: 15 minutes Coding Level of Care Code Acute Code for [facility]wd Diagnoses Vomiting R11.10 Acute kidney injury N17.9 Hypotension, unspecified hypotension type I95.9 Hypotension type: unspecified hypotension type Lower abdominal pain R10.30 Diarrhea R19.7 Time Spent (min) 15
[2023-06-13] MEDS: sodium chloride 0.9% 1,000 ML 100 ML IV ×2 (10:48→21:13)
[2023-06-13] MEDS: meropenem 1,000 MG in sodium chloride 0.9% (plus) 50 ML 100 MG IV ×2 (11:19→21:14)
[2023-06-13 11:46] LABS: Glucose Point of Care 110 mg/dL (70-110)
--- NOTE | 2023-06-13 14:33 | PC.NURSE ---
Report called to [facility] on medical surgical floor. Patient to transfer to room 256-2.
--- NOTE | 2023-06-13 14:57 | PC.NURSE ---
Patient transferred to MS room 256-2 with multiple family members accompanying, patient transferred via wheelchair on room air. All belongings with patient including hearing aids, dentures, and cellphone. Fritz, floor nurse at bedside with [employer], patient resting comfortably in bed with no complaints or requests.
--- NOTE | 2023-06-13 15:06 | PC.NURSE ---
This nurse assumed care of pt at 1500 from [facility]. Pt transferred safely up to Med surg floor from ICU in wheelchair.
[2023-06-13 16:50] LABS: Glucose Point of Care 119 mg/dL (70-110)
[2023-06-13] MEDS: sacubitril/valsartan 24-26 mg Tablet 2 EACH PO (17:26)
[2023-06-13 20:46] LABS: Glucose Point of Care 110 mg/dL (70-110)
[2023-06-14] VITALS (8 sets, daily range): BP systolic 111–132; BP diastolic 70–86; PULSE 86–109; RESP 16–20; TEMP 36.3–37.1; O2SAT 92–97
[2023-06-14 04:30] LABS: Basophils % 0.2 %; Eosinophils # 0.2 10^3/uL (0.0-0.8); Hematocrit 41.4 % (37-53); Lymphocytes # 0.6 10^3/uL (0.8-4.8); Lymphocytes % 3.4 %; Mean Corpuscular HGB Conc 33.3 g/dL (30-55); Mean Corpuscular Hemoglobin 31.2 pg (27-33); Mean Corpuscular Volume 93.5 fl (82-101); Monocytes % 6.1 %; Neutrophils # 15.23 10^3/uL (1.8-7.7); Neutrophils % 88.5 %; Nucleated Red Blood Cells % 0 %; Platelet Count 138 10^3/cmm (157-399); Red Blood Count 4.43 10^6/uL (3.85-5.65); Red Cell Distribution Width 14.6 % (12.1-15.1); White Blood Count 17.19 10^3/uL (3.29-11.43)
[2023-06-14 04:53] LABS: Blood Urea Nitrogen 17 mg/dL (8-23); Calcium 8.4 mg/dL (8.5-10.5); Carbon Dioxide 15 mmol/L (22-29); Chloride 109 mmol/L (98-107); Creatinine Clr Calc Pharmacy 52.5085; Glucose 108 mg/dL (65-115); Osmolality Calculated 278 mOsm/kg (285-295); Sodium 133 mmol/L (136-145)
[2023-06-14 05:03] LABS: Anion Gap 13.7 (5-19); Potassium 4.7 mmol/L (3.5-5.1)
[2023-06-14] MEDS: pantoprazole 40 mg SDV IVP ×2 (05:16→17:23)
[2023-06-14] MEDS: clopidogrel 75 mg Tablet PO (05:16)
[2023-06-14] MEDS: digoxin 125 mcg Tablet PO (05:16)
[2023-06-14] MEDS: ezetimibe 10 mg Tablet PO (05:16)
[2023-06-14 06:38] LABS: Glucose Point of Care 96 mg/dL (70-110)
[2023-06-14] MEDS: sodium chloride 0.9% 1,000 ML 100 ML IV ×2 (08:28→19:22)
[2023-06-14] MEDS: lactobacillus 1 Tablet 1 TAB PO ×2 (08:30→17:13)
[2023-06-14] MEDS: atorvastatin 40 mg Tablet PO (08:30)
[2023-06-14] MEDS: sacubitril/valsartan 24-26 mg Tablet 2 EACH PO ×2 (08:30→17:13)
[2023-06-14] MEDS: allopurinol 300 mg Tablet PO (08:30)
[2023-06-14] MEDS: apixaban 5 mg Tablet PO ×2 (08:30→17:13)
[2023-06-14] MEDS: potassium chloride ER 20 mEq Tablet PO ×2 (08:31→17:14)
[2023-06-14] MEDS: meropenem 1,000 MG in sodium chloride 0.9% (plus) 50 ML 100 MG IV ×2 (10:31→21:15)
[2023-06-14 11:49] LABS: Glucose Point of Care 103 mg/dL (70-110)
--- NOTE | 2023-06-14 13:19 | P.PN_ITS ---
Subjective 2 Subjective: No acute overnight events noted. Seen at bedside, he is spending better and diarrhea improved. As per the nursing report he had very minimal loose watery stools x 3 since yesterday. No history of fever nausea or vomiting Medications: Reviewed: Yes Vitals/I&O/Wt Last Vital Signs Temp 97.4 F L 06/14/23 09:34 Pulse 109 H 06/14/23 09:34 Resp 19 H 06/14/23 09:34 BP 125/86 06/14/23 09:34 Pulse Ox 94 06/14/23 09:34 O2 Del Method Room Air 06/14/23 09:34 06/13/23 06/14/23 06/14/23 22:59 06:59 14:59 Intake Total 1170 / 1745 1050 / 1050 Output Total 400 / 700 900 / 1600 Balance 770 / 1045 -900 / 145 1050 / 1050 Weight last 48 hrs Weight 82.582 kg Weight 79.605 kg Weight 79.917 kg Physical Exam 2 Narrative: He is alert awake oriented x 3, hearing impaired, not in acute distress Respiratory chest clear to auscultation bilaterally Cardiovascular normal heart sounds no murmurs, ICD in place Abdomen soft mildly tender in epigastric and right upper quadrant nondistended normal bowel sounds Extremities no edema noted Data 06/14/23 02:40 06/14/23 02:40 A&P Assessment and plan (1) Vomiting: (2) Acute kidney injury: (3) Hypotension: Qualifiers: Hypotension type: unspecified hypotension type Qualified Code(s): I95.9 - Hypotension, unspecified (4) Lower abdominal pain: (5) Diarrhea: Plan 83-year-old with multiple medical issues was brought in by family for complaint of diarrhea for 3 weeks and vomiting since 1 day. He was found to be hypotensive with worsening abdominal pain and was transferred to ICU for further workup for sepsis and Levophed drip. 1. Hypotension secondary to dehydration , medication induced and acute colitis resume home medications, will continue to monitor for now Leukocytosis improving to 17 today, creatinine is 1.3 back to baseline. will continue with IV meropenem and discontinue IV vancomycin in view of negative blood cultures follow up stool studies IV fluids at 100 mm/h IV Protonix 40mg twice daily IV Zofran 4 mg every 8 hours prn P.o. Lactobacillus 1 tab twice daily Soft diet 2. Acute on chronic renal failure with creatinine of 2.3 resolved 3. DVT prophylaxis, he is already on p.o. Eliquis 4. GI prophylaxis, continue IV Protonix 5. CODE STATUS he is full code for now 6. On fentanyl patch 50mcg [id number] for back pain. Discharge planning-need PT eval Attestations 2 Medical Necessity Statement*: He needs continued hospitalization for IV antibiotics for acute cholecystitis with leukocytosis and follow-up of stool studies. Plan to discharge home once the stool studies are reported Time Spent in Patient Care: 15 minutes Coding Level of Care Code Acute Code for [facility] Diagnoses Vomiting R11.10 Acute kidney injury N17.9 Hypotension, unspecified hypotension type I95.9 Hypotension type: unspecified hypotension type Lower abdominal pain R10.30 Diarrhea R19.7 Time Spent (min) 15
[2023-06-14 16:51] LABS: Glucose Point of Care 120 mg/dL (70-110)
[2023-06-14 21:16] LABS: Glucose Point of Care 109 mg/dL (70-110)
[2023-06-15] VITALS (8 sets, daily range): BP systolic 113–132; BP diastolic 72–79; PULSE 73–94; RESP 16–20; TEMP 36.4–36.8; O2SAT 93–97
[2023-06-15] MEDS: digoxin 125 mcg Tablet PO (05:19)
[2023-06-15] MEDS: pantoprazole 40 mg SDV IVP ×2 (05:19→17:13)
[2023-06-15] MEDS: ezetimibe 10 mg Tablet PO (05:19)
[2023-06-15] MEDS: clopidogrel 75 mg Tablet PO (05:19)
[2023-06-15 05:38] LABS: Basophils % 0.3 %; Eosinophils # 0.3 10^3/uL (0.0-0.8); Eosinophils % 2.5 %; Hematocrit 38.2 % (37-53); Lymphocytes # 0.9 10^3/uL (0.8-4.8); Lymphocytes % 6.4 %; Mean Corpuscular Hemoglobin 30.7 pg (27-33); Mean Corpuscular Volume 90.1 fl (82-101); Mean Platelet Volume 10.7 fL (7.4-10.4); Monocytes # 0.8 10^3/uL (0.2-0.9); Monocytes % 6.2 %; Neutrophils # 11.32 10^3/uL (1.8-7.7); Neutrophils % 82.9 %; Nucleated Red Blood Cells % 0 %; Platelet Count 162 10^3/cmm (157-399); Red Blood Count 4.24 10^6/uL (3.85-5.65); Red Cell Distribution Width 14.6 % (12.1-15.1); White Blood Count 13.65 10^3/uL (3.29-11.43)
[2023-06-15] MEDS: sodium chloride 0.9% 1,000 ML 100 ML IV (05:58)
[2023-06-15 06:41] LABS: Glucose Point of Care 84 mg/dL (70-110)
[2023-06-15] MEDS: apixaban 5 mg Tablet PO ×2 (08:34→17:22)
[2023-06-15] MEDS: atorvastatin 40 mg Tablet PO (08:34)
[2023-06-15] MEDS: lactobacillus 1 Tablet 1 TAB PO ×2 (08:34→17:22)
[2023-06-15] MEDS: sacubitril/valsartan 24-26 mg Tablet 2 EACH PO ×2 (08:34→17:22)
[2023-06-15] MEDS: potassium chloride ER 20 mEq Tablet PO ×2 (08:34→17:22)
[2023-06-15] MEDS: allopurinol 300 mg Tablet PO (08:34)
[2023-06-15 08:59] LABS: Digoxin 0.9 ng/mL (0.6-1.2)
[2023-06-15 09:01] LABS: Alanine Aminotransferase 13 U/L (0-41); Albumin Level 2.5 g/dL (3.5-5.2); Alkaline Phosphatase 91 U/L (40-130); Anion Gap 11.1 (5-19); Aspartate Amino Transferase 20 U/L (0-40); Blood Urea Nitrogen 14 mg/dL (8-23); Calcium 8.1 mg/dL (8.5-10.5); Carbon Dioxide 16 mmol/L (22-29); Chloride 111 mmol/L (98-107); Globulin 1.7 g/dL (1.3-4.6); Glucose 103 mg/dL (65-115); Osmolality Calculated 279 mOsm/kg (285-295); Potassium 4.1 mmol/L (3.5-5.1); Sodium 134 mmol/L (136-145); Total Bilirubin 0.5 mg/dL (0.15-1.2); Total Protein 4.2 g/dL (6.6-8.7)
[2023-06-15] MEDS: fentaNYL 50 mcg Patch 1 PATCH TRANSDERMA (10:48)
[2023-06-15] MEDS: meropenem 1,000 MG in sodium chloride 0.9% (plus) 50 ML 100 MG IV ×2 (10:48→21:44)
--- NOTE | 2023-06-15 11:08 | PC.NURSE ---
This nurse wasted the old fentanyl patch in the med disposable area near [facility] with Lina Guajardo RN, as a witness.
[2023-06-15 11:30] LABS: Glucose Point of Care 102 mg/dL (70-110)
--- NOTE | 2023-06-15 13:03 | P.PN_ITS ---
Documented by User: FINA Barry STDJUAN F 06/15/23 14:28 Subjective 2 Subjective: Mr. Colorado was seen at bedside this morning, no acute events overnight. He reports his nausea has improved, but continues to have watery diarrhea. He reports the output is normal in color, no bright red blood or dark blood noted. He reports stool was completely loose with no formed pieces. He was struggling with food stuck in his throat this morning however this seems to have resolved. He reports he is able to rise and ambulate appropriately however is weaker on his feet. He does not report any headaches, chills, dizziness, changes in vision,, dizziness, chest pain or palpitations, or lower extremity edema. He reports no other concerns today. Medications: Reviewed: Yes Vitals/I&O/Wt Last Vital Signs Temp 97.9 F 06/15/23 12:08 Pulse 81 06/15/23 12:08 Resp 19 H 06/15/23 12:08 BP 113/73 06/15/23 12:08 Pulse Ox 95 06/15/23 12:08 O2 Del Method Room Air 06/15/23 12:08 06/14/23 06/15/23 06/15/23 22:59 06:59 14:59 Intake Total 1478.333 / 2648.333 811.667 / 3460.000 451.667 / 451.667 Output Total 500 / 500 Balance 1478.333 / 2648.333 811.667 / 3460.000 -48.333 / -48.333 Weight last 48 hrs Weight 184 lb 9.6 oz Weight 182 lb 1 oz Weight 175 lb 8 oz Physical Exam 2 Narrative: General: Comfortable appearing patient seated in chair, conversing appropriately, following provider appropriately, alert and oriented. HEENT: Head atraumatic, normocephalic to visual inspection, PERRL, no scleral icterus or injection noted, neck supple no thyromegaly noted. CV: Normal rate and rhythm, S1 and S2 noted, no murmurs rubs or gallops noted. Pulm: Clear to auscultation bilaterally. GI: Abdomen soft, tender to palpation in upper quadrants bilaterally. Right upper quadrant tenderness noted, Berger sign positive. Bowel sounds active in all quadrants. Extremities: No extremity swelling or edema noted. Capillary refill less than 2 seconds. Data 06/15/23 05:08 04/22/24 05:08 Other Labs: Osmolality: 239 Calcium: 8.1 Total protein: 4.2 Albumin: 2.5 BNP: 8459. AST, ALT, alk phos: normal Micro: Microbiology 06/09/23 07:30 E. coli Shiga-like Toxin (PCR) - Final Stool Salmonella/Shigella Culture - Final Campylobacter (PCR) - Final A&P Assessment and plan (1) Diarrhea: Patient presented to the ED with 3 weeks of loose watery diarrhea and 1 day of nausea and vomiting. Continue IV fluids at 100 mL/h. Continue pantoprazole Continue lactobacillus Continue meropenem Stool culture is negative. Continue daily CMP/CBC. (2) Vomiting: Patient reports nausea has improved, and has resolved. Continue ondansetron, as needed. (3) Hypotension: Patient presented to the ED with 3 weeks of loose watery diarrhea and 1 days of nausea and vomiting. He was hypotensive at the time and was admitted to the ICU for workup of sepsis and was started on pressers. Patient no longer in the ICU, hypotension is resolved. Continue patient Entresto Continue to hold spironolactone Continue to hold metoprolol Continue to hold Imdur Qualifiers: Hypotension type: unspecified hypotension type Qualified Code(s): I95.9 - Hypotension, unspecified (4) Acute kidney injury: Patient elevated creatinine on admission. Has resolved. Creatinine today 0.9. (5) Lower abdominal pain: Patient continues to have bilateral upper quadrant abdominal pain on palpation. UA shows cholelithiasis with hydropic gallbladder, no bile duct dilatation. CT shows cholelithiasis with 2.7 centimeter gallstone. Continue Ezetimibe 10 mg p.o. daily. Plan DVT prophylaxis, he is already on p.o. Eliquis GI prophylaxis, continue IV Protonix CODE STATUS he is full code for now On fentanyl patch 50mcg [id number] for back pain. Coding Level of Care Code 40824 Diagnoses Diarrhea R19.7 Vomiting R11.10 Hypotension, unspecified hypotension type I95.9 Hypotension type: unspecified hypotension type Acute kidney injury N17.9 Lower abdominal pain R10.30 Time Spent (min) 26 Documented by User: Lavelle Fagan MD 06/15/23 14:41 Data 06/15/23 05:08 06/15/23 05:08 A&P Assessment and plan (1) Diarrhea: Patient presented to the ED with 3 weeks of loose watery diarrhea and 1 day of nausea and vomiting. Continue IV fluids at 100 mL/h. Continue pantoprazole Continue lactobacillus Continue meropenem Stool culture is negative. Continue daily CMP/CBC. Improved C. difficile is pending. Probable discharge tomorrow if continues to improve. (2) Vomiting: (3) Hypotension: Qualifiers: Hypotension type: unspecified hypotension type Qualified Code(s): I95.9 - Hypotension, unspecified (4) Acute kidney injury: (5) Lower abdominal pain: Plan Global weakness. Slow improvement. Consider nursing facility care. Discharge planning is reviewing. However, this is improving as well. DVT prophylaxis, he is already on p.o. Eliquis GI prophylaxis, continue IV Protonix CODE STATUS he is full code for now On fentanyl patch 50mcg [id number] for back pain. Attestations 2 Medical Necessity Statement*: Needs continued hospital stay for IV antibiotics related to colitis. Diagnoses Diarrhea R19.7 Vomiting R11.10 Hypotension, unspecified hypotension type I95.9 Hypotension type: unspecified hypotension type Acute kidney injury N17.9 Lower abdominal pain R10.30 Time Spent (min) 26
--- NOTE | 2023-06-15 13:54 | PC.SOCIAL ---
IMM Update pg 2 of IMM updated and reviewed w/ patient. Copy provided and copy dated, initialed and placed in chart.
--- NOTE | 2023-06-15 15:00 | USCV_ITS ---
Stanislav Wu Age: 83 Gender: M : 1940 Exam Date: 06/15/2023 15:17 Ordering Phys: Nicolette Orozco MD Technologist: Exam Location: [facility] [place] Indication: septis BP: 120 / 74 HR: 104 Rhythm: Sinus Technical Quality: Adequate MEASUREMENTS (Male / Female) Normal Values 2D ECHO LV Diastolic Diameter PLAX 4.5 cm 4.2 - 5.9 / 3.9 - 5.3 cm IVS Diastolic Thickness 1.4 cm 0.6 - 1.0 / 0.6 - 0.9 cm IVS Systolic Thickness 1.6 cm LVPW Diastolic Thickness 1.7 cm 0.6 - 1.0 / 0.6 - 0.9 cm LVPW Systolic Thickness 1.5 cm LVOT Diameter 2.1 cm LV Ejection Fraction 2D Teich 60.5 % LV Ejection Fraction MOD 2C 58.9 % LV Ejection Fraction 2C AL 58.7 % LA Diameter 4.3 cm RA Systolic Volume 4C AL 47.3 ml RA Systolic Volume 4C MOD 46.4 ml Aorta at Sinotubular Diameter 3.0 cm M-MODE LA Ao Ratio MM 1.4 AV Cusp Separation MM 2.0 cm DOPPLER AV Peak Velocity 232.0 cm/s LVOT Peak Velocity 96.0 cm/s AV Area Cont Eq vti 1.7 cm squared AV Area Cont Eq pk 1.4 cm squared MV Peak Velocity 200.7 cm/s TV Peak Velocity 179.5 cm/s TR Peak Velocity 191.0 cm/s TR Peak Gradient 14.6 mmHg TV Peak E Velocity 89.0 cm/s Right Atrial Pressure 3.0 mmHg Pulmonary Artery Systolic Pressu 17.6 mmHg FINDINGS Left Ventricle Severe diffuse hypokinesia left-ventricular especially involving the mid and apical segments. LV ejection fraction is around 35 to 40%((visual). Right Ventricle Pacemaker/defibrillator wire in the right ventricle Right Atrium Pacemaker/defibrillator wire is noted Left Atrium Moderately increased left atrial size. Mitral Valve Mild mitral annular calcification. Mild-moderate mitral valve regurgitation. Aortic Valve Mild aortic valve regurgitation. Tricuspid Valve No gross abnormalities noted Pulmonic Valve No gross abnormality noted Pericardium Normal pericardium without effusion. Aorta Normal aortic annulus size. IVC Normal inferior vena cava. CONCLUSIONS Severe diffuse hypokinesia left-ventricular especially involving the mid and apical segments. LV ejection fraction is around 35 to 40%((visual). Moderately increased left atrial size. Mild mitral annular calcification. Mild aortic valve regurgitation. Mild-moderate mitral valve regurgitation. There is no pericardial effusion. There are no intracardiac masses. Compared to the study from 12/02/2020, there is some improvement in the LV ejection fraction from 30% to 35-40% Dr Red Sherman MD [facility] (Electronically Signed) Final Date: 21 June 2023 17:41 S
[2023-06-15 16:06] LABS: Glucose Point of Care 109 mg/dL (70-110)
[2023-06-15 21:03] LABS: Glucose Point of Care 112 mg/dL (70-110)
--- NOTE | 2023-06-15 22:20 | PC.NURSE ---
was not able to get accurate output on pt due to voiding in brief
[2023-06-16] VITALS (7 sets, daily range): BP systolic 116–142; BP diastolic 69–85; PULSE 64–94; RESP 16–20; TEMP 36.3–36.7; O2SAT 93–99
[2023-06-16] MEDS: ezetimibe 10 mg Tablet PO (05:05)
[2023-06-16] MEDS: pantoprazole 40 mg SDV IVP ×2 (05:05→18:00)
[2023-06-16] MEDS: clopidogrel 75 mg Tablet PO (05:06)
[2023-06-16] MEDS: digoxin 125 mcg Tablet PO (05:09)
[2023-06-16 05:40] LABS: Basophils # 0.1 10^3/uL (0.0-0.1); Basophils % 0.4 %; Eosinophils # 0.4 10^3/uL (0.0-0.8); Eosinophils % 3.2 %; Hematocrit 41.3 % (37-53); Lymphocytes % 8.9 %; Mean Corpuscular HGB Conc 33.9 g/dL (30-55); Mean Corpuscular Hemoglobin 30.7 pg (27-33); Mean Corpuscular Volume 90.6 fl (82-101); Mean Platelet Volume 10.5 fL (7.4-10.4); Monocytes # 0.7 10^3/uL (0.2-0.9); Monocytes % 5.6 %; Neutrophils % 80.4 %; Nucleated Red Blood Cells % 0 %; Platelet Count 201 10^3/cmm (157-399); Red Blood Count 4.56 10^6/uL (3.85-5.65); Red Cell Distribution Width 14.5 % (12.1-15.1); White Blood Count 11.71 10^3/uL (3.29-11.43)
[2023-06-16 06:00] LABS: Alanine Aminotransferase 17 U/L (0-41); Albumin Level 2.2 g/dL (3.5-5.2); Alkaline Phosphatase 87 U/L (40-130); Anion Gap 12.1 (5-19); Aspartate Amino Transferase 20 U/L (0-40); Blood Urea Nitrogen 11 mg/dL (8-23); Calcium 8.3 mg/dL (8.5-10.5); Carbon Dioxide 18 mmol/L (22-29); Chloride 110 mmol/L (98-107); Glucose 99 mg/dL (65-115); Osmolality Calculated 281 mOsm/kg (285-295); Potassium 4.1 mmol/L (3.5-5.1); Sodium 136 mmol/L (136-145); Total Bilirubin 0.6 mg/dL (0.15-1.2); Total Protein 5.2 g/dL (6.6-8.7)
[2023-06-16 06:32] LABS: Glucose Point of Care 94 mg/dL (70-110)
[2023-06-16] MEDS: potassium chloride ER 20 mEq Tablet PO ×2 (08:23→17:31)
[2023-06-16] MEDS: sacubitril/valsartan 24-26 mg Tablet 2 EACH PO ×2 (08:23→17:30)
[2023-06-16] MEDS: atorvastatin 40 mg Tablet PO (08:23)
[2023-06-16] MEDS: apixaban 5 mg Tablet PO ×2 (08:23→17:31)
[2023-06-16] MEDS: allopurinol 300 mg Tablet PO (08:23)
[2023-06-16] MEDS: lactobacillus 1 Tablet 1 TAB PO ×2 (08:23→17:31)
--- NOTE | 2023-06-16 09:21 | P.PN_ITS ---
Documented by User: FINA Barry STDJUAN F 06/16/23 09:39 Subjective 2 Subjective: Mr. [place] was seen at bedside this morning, no acute events overnight. He reports his nausea has improved, but reports diarrhea may have improved, with formed pieces however its mostly watery. He denies any bright red blood or dark stool. Reports he is able to rise and ambulate appropriately however is weaker on his feet. He reports that his right upper quadrant continues to have pain especially with deep inspiration. He does not report any headaches, chills, dizziness, changes in vision,, dizziness, chest pain or palpitations, or lower extremity edema. He reports no other concerns today. Medications: Reviewed: Yes Vitals/I&O/Wt Last Vital Signs Temp 97.6 F 06/16/23 08:37 Pulse 82 06/16/23 08:37 Resp 19 H 06/16/23 08:37 BP 122/74 06/16/23 08:37 Pulse Ox 99 06/16/23 08:37 O2 Del Method Room Air 06/16/23 08:37 06/15/23 06/16/23 06/16/23 22:59 06:59 14:59 Intake Total 590 / 1401.667 120 / 1521.667 360 / 360 Output Total 250 / 750 Balance 590 / 901.667 -130 / 771.667 360 / 360 Weight last 48 hrs Weight 181 lb 8 oz Weight 184 lb 9.6 oz Physical Exam 2 Narrative: General: Comfortable appearing patient seated in chair, conversing appropriately, following provider appropriately, alert and oriented. HEENT: Head atraumatic, normocephalic to visual inspection, PERRL, no scleral icterus or injection noted, neck supple no thyromegaly noted. CV: Normal rate and rhythm, S1 and S2 noted, no murmurs rubs or gallops noted. Pulm: Clear to auscultation bilaterally. GI: Abdomen soft, tender to palpation in upper quadrants bilaterally. Right upper quadrant tenderness noted, Berger sign positive. Bowel sounds active in all quadrants. Extremities: No extremity swelling or edema noted. Capillary refill less than 2 seconds. Data 06/16/23 05:20 06/16/23 05:20 Other Labs: Osmolality: 239 Calcium: 8.1 Total protein: 4.2 Albumin: 2.5 BNP: 8459. AST, ALT, alk phos: normal Micro: Microbiology 06/10/23 22:54 Blood Culture - Final Blood NO GROWTH AFTER 5 DAYS 06/10/23 22:47 Blood Culture - Final Blood NO GROWTH AFTER 5 DAYS A&P Assessment and plan (1) Diarrhea: Patient presented to the ED with 3 weeks of loose watery diarrhea and 1 day of nausea and vomiting. Continue IV fluids, reduce rate to 50 mL/h. Continue pantoprazole Continue lactobacillus Continue meropenem Stool culture is negative. Continue daily CMP/CBC. Improved C. difficile is pending. Probable discharge tomorrow if continues to improve. (2) Vomiting: Patient reports nausea has improved, and has resolved. Continue ondansetron, as needed. (3) Hypotension: Patient presented to the ED with 3 weeks of loose watery diarrhea and 1 days of nausea and vomiting. He was hypotensive at the time and was admitted to the ICU for workup of sepsis and was started on pressers. Patient no longer in the ICU, hypotension is resolved. Continue patient Entresto Continue to hold spironolactone Continue to hold metoprolol Continue to hold Imdur Qualifiers: Hypotension type: unspecified hypotension type Qualified Code(s): I95.9 - Hypotension, unspecified (4) Acute kidney injury: Patient elevated creatinine on admission. Has resolved. Creatinine today 0.9. (5) Lower abdominal pain: Patient continues to have bilateral upper quadrant abdominal pain on palpation. Patient reports that he is unable to take a deep breath in without having right upper quadrant pain. UA shows cholelithiasis with hydropic gallbladder, no bile duct dilatation. CT shows cholelithiasis with 2.7 centimeter gallstone. Continue Ezetimibe 10 mg p.o. daily. Plan Global weakness. Slow improvement. Consider nursing facility care. Discharge planning is reviewing. However, this is improving as well. DVT prophylaxis, he is already on p.o. Eliquis GI prophylaxis, continue IV Protonix CODE STATUS he is full code for now On fentanyl patch 50mcg [id number] for back pain. Coding Level of Care Code 20640 Diagnoses Diarrhea R19.7 Vomiting R11.10 Hypotension, unspecified hypotension type I95.9 Hypotension type: unspecified hypotension type Acute kidney injury N17.9 Lower abdominal pain R10.30 Documented by User: Chelsea Loyola MD 06/16/23 11:15 Subjective 2 Subjective: Mr. [place] was seen at bedside this morning, no acute events overnight. He reports his nausea has improved, but reports diarrhea may have improved, with formed pieces however its mostly watery. He denies any bright red blood or dark stool. Reports he is able to rise and ambulate appropriately however is weaker on his feet. He reports that his right upper quadrant continues to have pain especially with deep inspiration. He does not report any headaches, chills, dizziness, changes in vision,, dizziness, chest pain or palpitations, or lower extremity edema. He reports no other concerns today. Diarrhea is improved. Diarrhea is starting to improve with some formed stool. However Data 06/16/23 05:20 06/16/23 05:20 A&P Assessment and plan (1) Diarrhea: Patient presented to the ED with 3 weeks of loose watery diarrhea and 1 day of nausea and vomiting. Continue IV fluids, reduce rate to 50 mL/h. Continue pantoprazole Continue lactobacillus Continue meropenem for today. DC tomorrow. Will complete total 7 days. Stool culture is negative. Continue daily CMP/CBC. Improved C. difficile is pending. Probable discharge tomorrow if continues to improve. (2) Vomiting: (3) Hypotension: Qualifiers: Hypotension type: unspecified hypotension type Qualified Code(s): I95.9 - Hypotension, unspecified (4) Acute kidney injury: (5) Lower abdominal pain: Attestations 2 Medical Necessity Statement*: Continues to have watery diarrhea. If improved by tomorrow we will plan for discharge. Diagnoses Diarrhea R19.7 Vomiting R11.10 Hypotension, unspecified hypotension type I95.9 Hypotension type: unspecified hypotension type Acute kidney injury N17.9 Lower abdominal pain R10.30
--- NOTE | 2023-06-16 10:05 | PC.CHAP ---
Pastoral Care Encounter/Spiritual Assessment Type of Contact [] Declined digital content specialist visit [] Patient/Family/Request visit [] Outpatient visit [] Follow-up visit [] Physician referral [] Code/Alert [X] Routine visit [] Staff referral [] Actively dying [] Patient sleeping [] Family support [] [] Out of room [] Palliative care [] [] Receiving care in room [] Pre-surgical visit [] Trauma [] Long length of stay [] ICU visit [] Other: Relational/Emotional Strength [X] Patient feels connected with others/family/visitors/staff [] Distress [] Loneliness/isolation [] Abandonment Spirituality of Patient [X] Person of Veronica [] Attends Evangelical of their Veronica [X] Believes in Prayer [] Reads Bible or Hinduism materials [] There are Spiritual issues to be addressed Parts Manager Interventions [X] Prayer [X] Active listening [] Non-anxious presence [X] Spiritual/emotional support [] Crisis/trauma care [] Spiritual counseling [] Bereavement support [] Provided bereavement packet [] Provided Bible/devotional materials [] Provided toy/stuffed animal, coloring book to patient or family member [] Provided Communion [] Anointing/[place] [] Salvation [X] Completed spiritual assessment [] Other: Impact on Illness or Injury [] Angry [] Fearful [] Anxious [] Often cries [] Exhaustion [] Unable to work [] Unable to attend caodaism [] Unable to walk/stand [] Unable to read [] Unable to drive [] Unable to eat/drink [] Unable to sleep [] Unable to be with family [] Patient intubated [] Other: Summary Time spent with patient 5 MIN
[2023-06-16] MEDS: meropenem 1,000 MG in sodium chloride 0.9% (plus) 50 ML 100 MG IV ×2 (10:15→21:30)
[2023-06-16 11:10] LABS: Glucose Point of Care 89 mg/dL (70-110)
[2023-06-16 16:27] LABS: Glucose Point of Care 98 mg/dL (70-110)
[2023-06-16 20:48] LABS: Glucose Point of Care 145 mg/dL (70-110)
[2023-06-16] MEDS: insulin lispro 100 unit/1 mL SUBCUT (21:31)
[2023-06-17 01:30] VITALS: BP 135/80; PULSE 85; RESP 16; TEMP 36.4; O2SAT 97
[2023-06-17 05:12] VITALS: PULSE 78
[2023-06-17] MEDS: clopidogrel 75 mg Tablet PO (05:12)
[2023-06-17] MEDS: ezetimibe 10 mg Tablet PO (05:12)
[2023-06-17] MEDS: pantoprazole 40 mg SDV IVP (05:12)
[2023-06-17] MEDS: digoxin 125 mcg Tablet PO (05:12)
[2023-06-17 05:27] VITALS: BP 130/70; PULSE 76; RESP 16; TEMP 36.4; O2SAT 96
[2023-06-17 06:35] LABS: Glucose Point of Care 105 mg/dL (70-110)
[2023-06-17 07:57] VITALS: BP 124/86; PULSE 92; RESP 18; TEMP 36.6; O2SAT 97
[2023-06-17] MEDS: apixaban 5 mg Tablet PO (08:11)
[2023-06-17] MEDS: allopurinol 300 mg Tablet PO (08:11)
[2023-06-17] MEDS: atorvastatin 40 mg Tablet PO (08:11)
[2023-06-17] MEDS: sacubitril/valsartan 24-26 mg Tablet 2 EACH PO (08:11)
[2023-06-17] MEDS: lactobacillus 1 Tablet 1 TAB PO (08:11)
[2023-06-17] MEDS: potassium chloride ER 20 mEq Tablet PO (08:11)
[2023-06-17] MEDS: lidocaine 5% Patch 1 PATCH TOPICAL (08:18)
--- NOTE | 2023-06-17 11:14 | P.DS_ITS ---
Discharge Providers Date of Admission: 06/09/23 17:09 Date of Discharge: June 17, 2023 Attending Provider at Admission: Nicolette Orozco MD Attending Provider at Discharge: Chelsea Loyola MD Primary Care Provider: Raymond Reddy MD Diagnoses at Discharge Discharge Diagnosis (1) Diarrhea: Status: Resolved (2) Vomiting: Status: Resolved (3) Hypotension: Status: Resolved Qualifiers: Hypotension type: unspecified hypotension type Qualified Code(s): I95.9 - Hypotension, unspecified (4) Acute kidney injury: Status: Resolved (5) Lower abdominal pain: Status: Resolved Reason for Visit Reason for Visit: chest pains Hospital Course Hospital Course Patient initially was admitted for diarrhea x 3-week and nausea and vomiting. History was obtained from family as patient is very hard of hearing. He also had some abdominal pain and loss of appetite. Patient was given IV fluids, Protonix, probiotics during hospital stay. Antibiotics were held at admission. However patient did complain of worsened pain and right upper quadrant with inspiration. C. difficile was negative. Right upper quadrant ultrasound was done which showed cholelithiasis and a mildly hydropic gallbladder. Mild diffuse wall thickening may be chronic. No pericholecystic fluid noted. No bile duct dilatation. CT abdomen pelvis was done which showed cholelithiasis with prominent laminated gallstone measuring 2.7 cm. No significant gallbladder wall thickening or pericholecystic fluid seen. No evidence of acute cholecystitis. No fluid collection or abscess in the abdomen or pelvis. No evidence of acute diverticulitis. Patient was kept on meropenem. Subsequent days he felt better. Secondary to hypotension spironolactone, Entresto, metoprolol, Imdur were held. These were restarted on discharge with reduced doses. Patient tolerating medications well. Diarrhea resolved at discharge patient had 2 formed stools prior to leaving hospital. There was also concern o f mild erythema around scrotal area however with elevation that also resolved. Patient to restart Lasix at home. Patient will be sent to skilled nursing at this time in stable condition. Patient to follow-up with general surgery as outpatient for gallstone. He will be sent on 10 days of Augmentin to complete the course. All questions answered. Patient discharged to skilled nursing in stable condition at this time. Physical Exam Narrative: General: Comfortable appearing patient laying in bed. States he is excited to leave. HEENT: Head atraumatic, normocephalic to visual inspection, CV: Normal rate and rhythm, S1 and S2 noted, no murmurs rubs or gallops noted. Pulm: Clear to auscultation bilaterally. GI: Abdomen soft, nontender to palpation, abdomen soft, no rebound tenderness or rigidity. Bowel sounds present in all 4 quadrants ? Extremities: Trace edema bilateral lower extremities. Discharge Data Studies Completed and Pending Completed Studies During Hospitalization Category Date Time Status CT abdomen pelvis wo con [id number] Stat Cat Scan 06/09/23 12:43 Completed XR abdomen 1V* [id number] Routine Exams 06/10/23 22:40 Completed XR chest 1V portable [id number] Stat Exams 06/09/23 12:13 Completed Stool Culture - Enteric [Salmonella / Shigella / Campy] Lab 06/09/23 07:30 Completed Routine US abdomen limited [id number] Urgent Ultrasound 06/10/23 22:40 Completed Pending at discharge Category Date Time Status C.Diff PCR (Lab) Routine Lab 06/12/23 09:22 Ordered COVID [SARS Covid-2 Antigen] Routine Lab 06/17/23 10:45 Received CV. echo complete* [id number] Stat Ultrasound 06/15/23 15:00 Taken Radiology Impressions Abdomen X-Ray 06/10/23 22:40 IMPRESSION: Bowel gas pattern is nonspecific. There is mild generalized gaseous distension of small and large bowel. Laboratory Results WBC 11.71 10^3/uL (3.29-11.43) H 06/16/23 05:20 Corrected WBC Cancelled 06/10/23 16:16 RBC 4.56 10^6/uL (3.85-5.65) 06/16/23 05:20 Hgb 14.00 g/dL (11.27-16.99) 06/16/23 05:20 Hct 41.3 % (37-53) 06/16/23 05:20 MCV 90.6 fl (82-101) 06/16/23 05:20 MCH 30.7 pg (27-33) 06/16/23 05:20 MCHC 33.9 g/dL (30-55) 06/16/23 05:20 RDW 14.5 % (12.1-15.1) 06/16/23 05:20 Plt Count 201 10^3/cmm (157-399) 06/16/23 05:20 MPV 10.5 fL (7.4-10.4) H 06/16/23 05:20 Gran % Cancelled 06/10/23 16:16 Neut % (Auto) 80.4 % 06/16/23 05:20 Lymph % (Auto) 8.9 % 06/16/23 05:20 [place] % (Auto) 5.6 % 06/16/23 05:20 Eos % (Auto) 3.2 % 06/16/23 05:20 Baso % (Auto) 0.4 % 06/16/23 05:20 Neut # (Auto) 9.40 10^3/uL (1.8-7.7) H 06/16/23 05:20 Lymph # (Auto) 1.0 10^3/uL (0.8-4.8) 06/16/23 05:20 [place] # (Auto) 0.7 10^3/uL (0.2-0.9) 06/16/23 05:20 Eos # (Auto) 0.4 10^3/uL (0.0-0.8) 06/16/23 05:20 Baso # (Auto) 0.1 10^3/uL (0.0-0.1) 06/16/23 05:20 Absolute Gran (auto) Cancelled 06/10/23 16:16 Nucleated RBC % (auto) 0 % 06/16/23 05:20 Nucleated RBCs # 0.0 /100WBC 06/16/23 05:20 PT 21.70 SECONDS (12.1-14.9) H 06/09/23 12:36 INR 1.82 (0.8-1.2) H 06/09/23 12:36 Sodium 136 mmol/L (136-145) 06/16/23 05:20 Potassium 4.1 mmol/L (3.5-5.1) 06/16/23 05:20 Chloride 110 mmol/L (98-107) H 06/16/23 05:20 Carbon Dioxide 18 mmol/L (22-29) L 06/16/23 05:20 Anion Gap 12.1 (5-19) 06/16/23 05:20 BUN 11 mg/dL (8-23) 06/16/23 05:20 Creatinine 0.9 mg/dL (0.7-1.2) 06/16/23 05:20 GFR Calculation Not Reportable 06/16/23 05:20 Glucose 99 mg/dL (65-115) 06/16/23 05:20 POC Glucose 105 mg/dL (70-110) 06/17/23 06:32 Calculated Osmolality 281 mOsm/kg (285-295) L 06/16/23 05:20 Lactate 1.3 mmol/L (0.5-2.2) 06/11/23 05:56 Calcium 8.3 mg/dL (8.5-10.5) L 06/16/23 05:20 Magnesium 2.0 mg/dL (1.7-2.3) 06/16/23 05:20 Total Bilirubin 0.6 mg/dL (0.15-1.2) 06/16/23 05:20 AST 20 U/L (0-40) 06/16/23 05:20 ALT 17 U/L (0-41) 06/16/23 05:20 Alkaline Phosphatase 87 U/L (40-130) 06/16/23 05:20 Troponin T Baseline 51 ng/L (0-15) H 06/09/23 12:36 Troponin T 120 Minute 48.14 ng/L (0-15) H 06/09/23 14:29 Delta Troponin T -2.86 ABS# (0-10) L 06/09/23 14:29 Troponin T Hi Sens 6Hr 52.97 ng/L (0-15) H 06/09/23 18:36 Troponin T Hi Sens 6Hr Delta 1.97 ng/L (0-12) 06/09/23 18:36 NT-Pro-B Natriuret Pep 8459 pg/mL (0-450) H 06/13/23 04:15 Total Protein 5.2 g/dL (6.6-8.7) L 06/16/23 05:20 Albumin 2.2 g/dL (3.5-5.2) L 06/16/23 05:20 Globulin 3.0 g/dL (1.3-4.6) 06/16/23 05:20 Amylase 42 U/L (21-101) 06/10/23 12:36 Lipase 16 U/L (13-60) 06/09/23 12:36 Urine Color Yellow (Yellow) 06/11/23 01:19 Urine Appearance Clear (CLEAR) 06/11/23 01:19 Urine pH 5 (5-7) 06/11/23 01:19 Ur Specific [place] 1.015 (1.005-1.030) 06/11/23 01:19 Urine Protein Neg (Negative) 06/11/23 01:19 Urine Glucose (UA) 4+ (Normal) H 06/11/23 01:19 Urine Ketones Negative (Negative) 06/11/23 01:19 Urine Blood Trace (Negative) H 06/11/23 01:19 Urine Nitrate Negative (Negative) 06/11/23 01:19 Urine Bilirubin Neg (Negative) 06/11/23 01:19 Urine Urobilinogen Neg mg/dL (Negative) 06/11/23 01:19 Ur Leukocyte Esterase Negative (Negative) 06/11/23 01:19 Urine RBC None /hpf (0-2) 06/11/23 01:19 Urine WBC None /hpf (0-5) 06/11/23 01:19 Ur Squamous Epith Cells 0-4 /hpf (0-5) H 06/11/23 01:19 Amorphous Sediment Not Reportable 06/11/23 01:19 Urine Bacteria Trace /hpf (NONE) 06/11/23 01:19 Urine Mucus 1+ /hpf 06/11/23 01:19 Digoxin 0.9 ng/mL (0.6-1.2) 06/15/23 05:08 C. difficile (PCR) Negative (Negative) 06/10/23 07:30 Vitals Last Vital Signs Temp 98 F 06/17/23 07:57 Pulse 92 06/17/23 07:57 Resp 18 06/17/23 07:57 BP 124/86 06/17/23 07:57 Pulse Ox 97 06/17/23 07:57 O2 Del Method Room Air 06/17/23 07:57 Discharge Plan Discharge Patient Disposition: Xfer SNF Condition: Stable Prescriptions: New amoxicillin-pot clavulanate 875-125 mg tablet 1 tab PO BID 10 Days Qty: 20 0RF Continued (DME) wheeled walker See Rx Instructions .Route .MEDSUPPLY Qty: 1 0RF Rx Instructions: As directed ascorbic acid (vitamin C) 500 mg tablet extended release 500 mg PO BID@ pantoprazole 40 mg tablet,delayed release (DR/EC) 40 mg PO QAM Qty: 90 3RF nitroglycerin 0.4 mg tablet, sublingual 0.4 mg sublingual Q5M MDD 3 tabs PRN (Reason: Chest Pain) Qty: 25 3RF (DME) cpap See Rx Instructions .Route .MEDSUPPLY Qty: 1 0RF Rx Instructions: supply new tubing and mask. meloxicam 15 mg tablet 15 mg PO DAILY Qty: 90 3RF metoclopramide HCl [Reglan] 5 mg tablet 5 mg PO BID Qty: 180 3RF Entresto 97-103 mg tablet 0.5 tab PO BID Qty: 90 3RF Eliquis 5 mg tablet 5 mg PO BID Qty: 90 3RF Jardiance 10 mg tablet 10 mg PO DAILY Qty: 30 3RF vitamin E 400 unit Capsule 400 unit PO BID omega 4-slt-[id number]-fish oil [Fish Oil] 1,000 mg (120 mg-180 mg) Capsule 1 cap PO DAILY furosemide 40 mg tablet 40 mg PO DAILY potassium chloride 20 mEq tablet,ER particles/crystals 20 meq PO BID allopurinol 300 mg tablet 300 mg PO DAILY diphenoxylate-atropine 2.5-0.025 mg tablet 1 tab PO QID fentanyl 37.5 mcg/hour patch 72 hour See Rx Instructions .ROUTE .COMPLEX Rx Instructions: APPLY ONE PATCH TO SKIN TRANSDERMAL every 72 hours FOR 30 DAYS atorvastatin 40 mg tablet 40 mg PO DAILY clopidogrel 75 mg tablet 75 mg PO QAM metoprolol tartrate 50 mg tablet 50 mg PO BID digoxin 125 mcg (0.125 mg) tablet 125 mcg PO QAM ezetimibe 10 mg tablet 10 mg PO QAM Changed isosorbide mononitrate 30 mg tablet extended release 24 hr 15 mg PO QPM Qty: 30 0RF spironolactone 25 mg tablet 12.5 mg PO QAM Qty: 30 0RF Discharge Orders: Discharge Order (Routine); Ordered 06/17/23 Ordered By: Chelsea Looyla Referrals: [facility] [place] [Outside] Pedro Dietz DO [Physician] - 06/30/23 1:35 pm () Raymond Reddy MD [Primary Care Provider] - 1-3 days Red Sherman MD [Physician] - 07/01/23 2:00 pm () Discharge Diet: Cardiac and Diabetic Discharge Activity: Resume usual activity and As per PT/OT instructions Patient Instructions: Opioid Safety Discharge Attestations Time Spent in Discharge Care*: greater than 30 min Status at Discharge: Cognitive status at discharge: cognitively intact , Behavioral status at discharge: cooperative and independent in ADL's , Quality Metrics Clinical Quality Measures [ No reported AMI, CVA or VTE this stay] Coding Level of Care Code Acute Code for Chg Fwd Diagnoses Diarrhea R19.7 Vomiting R11.10 Hypotension, unspecified hypotension type I95.9 Hypotension type: unspecified hypotension type Acute kidney injury N17.9 Lower abdominal pain R10.30
[2023-06-17 11:23] LABS: SARS Covid-2 Antigen negative (Negative)
[2023-06-17] MEDS: meropenem 1,000 MG in sodium chloride 0.9% (plus) 50 ML 100 MG IV (11:26)
[2023-06-17 11:32] LABS: Glucose Point of Care 122 mg/dL (70-110)
[2023-06-17 11:40] VITALS: BP 110/70; PULSE 81; RESP 17; TEMP 36.8; O2SAT 98
--- NOTE | 2023-06-17 11:59 | PC.SOCIAL ---
IMM Update pg 2 of IMM updated and reviewed w/ patient. Copy provided and copy dated, initialed and placed in chart.
--- NOTE | 2023-06-17 14:59 | PC.NURSE ---
Discharge Note Patient discharged to [facility] accompanied by [facility] personnel. 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 Mobile pharmacy medications and/or prescriptions provided. Belongings/home medications returned.
[2023-06-17 15:01] VITALS: BP 110/70; PULSE 81; RESP 17; TEMP 36.8; O2SAT 98
== END 2023-06-17 15:03 | disposition skilled nursing facility (03) | DRG 683 ==
LOC: ER 14:33 → MEDSURG 14:58 → ICU 06-10 21:36 → MEDSURG 06-13 14:48
PROVIDERS: Internal Medicine; Student in an Organized Health Care Education/Training Program; Admitting Provider Internal Medicine; Emergency Provider Emergency Medicine; PCP Internal Medicine; Visit Provider Internal Medicine
DX: N17.9 Acute kidney failure, unspecified (principal); I13.0 Hypertensive heart and chronic kidney disease with heart failure and stage 1 through stage 4 chronic kidney disease, or unspecified chronic kidney disease; I48.20 Chronic atrial fibrillation, unspecified; I95.9 Hypotension, unspecified; E86.0 Dehydration; K80.20 Calculus of gallbladder without cholecystitis without obstruction; E78.5 Hyperlipidemia, unspecified; Z79.01 Long term (current) use of anticoagulants; Z87.891 Personal history of nicotine dependence; K21.9 Gastro-esophageal reflux disease without esophagitis; Z95.810 Presence of automatic (implantable) cardiac defibrillator; I25.2 Old myocardial infarction; K52.9 Noninfective gastroenteritis and colitis, unspecified; I11.0 Hypertensive heart disease with heart failure; I50.9 Heart failure, unspecified; N18.9 Chronic kidney disease, unspecified; I25.10 Atherosclerotic heart disease of native coronary artery without angina pectoris
CPT/HCPCS: 36415; 36416; 71045; 74018; 74176; 76705; 80048; 80053; 80162; 81001; 82150; 82962; 83605; 83630; 83690; 83735; 83880; 84484; 85025; 85610; 87040; 87045; 87426; 87427; 87449; 87493; 93005; 93306; 96372; 96374; 96376; 97110; 97116; 97161; 97530; 99285; C9113; G0378; J0744; J1815; J1885; J2185; J2270; J2405; J3370; J3490; J7030; J7040; J7050

== ENCOUNTER → 2023-07-02 13:40 | Outpatient (BNVA) | payer MEDICARE, SELFPAY | PROVIDERS: PCP Internal Medicine; Visit Provider Internal Medicine Cardiovascular Disease | DX: I25.119 Atherosclerotic heart disease of native coronary artery with unspecified angina pectoris (principal); E78.5 Hyperlipidemia, unspecified; I25.5 Ischemic cardiomyopathy; I34.0 Nonrheumatic mitral (valve) insufficiency; I48.91 Unspecified atrial fibrillation; Z95.810 Presence of automatic (implantable) cardiac defibrillator; Z87.891 Personal history of nicotine dependence; I13.0 Hypertensive heart and chronic kidney disease with heart failure and stage 1 through stage 4 chronic kidney disease, or unspecified chronic kidney disease; N18.9 Chronic kidney disease, unspecified; I50.23 Acute on chronic systolic (congestive) heart failure; Z79.01 Long term (current) use of anticoagulants | CPT/HCPCS: 99214 ==

== ENCOUNTER → 2023-10-20 10:52 | Outpatient (BNVA) | payer MEDICARE, SELFPAY | PROVIDERS: PCP Family Medicine; Visit Provider Internal Medicine Cardiovascular Disease | DX: I25.10 Atherosclerotic heart disease of native coronary artery without angina pectoris (principal); E78.5 Hyperlipidemia, unspecified; I25.5 Ischemic cardiomyopathy; I34.0 Nonrheumatic mitral (valve) insufficiency; I48.91 Unspecified atrial fibrillation; Z95.810 Presence of automatic (implantable) cardiac defibrillator; Z87.891 Personal history of nicotine dependence; I13.0 Hypertensive heart and chronic kidney disease with heart failure and stage 1 through stage 4 chronic kidney disease, or unspecified chronic kidney disease; I50.23 Acute on chronic systolic (congestive) heart failure; N18.9 Chronic kidney disease, unspecified; Z79.01 Long term (current) use of anticoagulants | CPT/HCPCS: 36415; 80048; 83880; 99214 ==

== ENCOUNTER → 2024-01-04 10:39 | Outpatient (BNVA) | payer MEDICARE, SELFPAY | PROVIDERS: PCP Family Medicine; Visit Provider Internal Medicine Cardiovascular Disease | DX: I25.119 Atherosclerotic heart disease of native coronary artery with unspecified angina pectoris (principal); I10 Essential (primary) hypertension; E78.5 Hyperlipidemia, unspecified; I25.5 Ischemic cardiomyopathy; I34.0 Nonrheumatic mitral (valve) insufficiency; I48.91 Unspecified atrial fibrillation; Z95.810 Presence of automatic (implantable) cardiac defibrillator; Z98.61 Coronary angioplasty status | CPT/HCPCS: 99214 ==

== ENCOUNTER 2024-05-23 18:52 | Inpatient (IN) | payer MEDICARE, SELFPAY ==
[2024-05-23 18:57] VITALS: BP 126/92; PULSE 72; RESP 18; TEMP 36.4; O2SAT 100; BMI 23.6
[2024-05-23 18:59] VITALS: BP 146/83; PULSE 61; RESP 18; O2SAT 98
--- NOTE | 2024-05-23 19:28 | CTR_ITS ---
PROCEDURE INFORMATION: Exam: CT Abdomen And Pelvis With Contrast Exam date and time: 05/23/2024 9:05 PM Age: 84 years old Clinical indication: Abdominal pain; Generalized; Additional info: Abd pain/vomiting TECHNIQUE: Imaging protocol: Computed tomography of the abdomen and pelvis with contrast. Radiation optimization: All CT scans at this facility use at least one of these dose optimization techniques: automated exposure control; mA and/or kV adjustment per patient size (includes targeted exams where dose is matched to clinical indication); or iterative reconstruction. Contrast material: OMNIPAQUE 350; Contrast volume: 100 ml; Contrast route: INTRAVENOUS (IV); COMPARISON: CT abdomen pelvis wo con [id number] 06/09/2023 1:35 PM RADIATION DOSE METRICS: Total DLP (mGy-cm): 537.37 FINDINGS: Lungs: Mild bibasilar dependent scarring and/or atelectasis. Liver: The liver demonstrates mild focal edema about the area of the gallbladder bed. No suspicious hepatic masses. Gallbladder and biliary ducts: The gallbladder is poorly visualized, with small amounts of air and fluid within the expected area of the gallbladder bed. Mild intrahepatic and extrahepatic biliary ductal dilation. Common bile duct measures up to 1.0 cm in diameter. No distinct radiopaque filling defect within the bile ducts on CT. Occult choledocholithiasis is not excluded. Pancreas: Moderate to severe atrophy of the pancreas. No pancreatic ductal dilation. Spleen: The spleen is unremarkable. Adrenal glands: The adrenal glands are unremarkable. Kidneys and ureters: Renal cysts measuring up to 3.7 cm. No hydronephrosis or hydroureter. No large renal stones. Stomach and bowel: A focal dense spherical object, measuring up to 2.5 cm in diameter, is located within a loop of small bowel (axial series 3, image 41; coronal series 5, image 36; sagittal series 6, image 43). This location corresponds with a transition point between distally decompressed small bowel and proximally fluid-distended bowel up to 2.6 cm. Multiple loops of small bowel proximal to the migrated gallstone demonstrate mild bowel wall thickening with moderate surrounding edema. These findings are suggestive early or partial small bowel obstruction. Mild scattered colonic diverticulosis. Focal contained air and fluid located at the expected area of the gallbladder bed adjacent to the proximal duodenum. 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 No distinct evidence of extraluminal free air to suggest an uncontained perforation. Appendix: No evidence of acute appendicitis. Intraperitoneal space: No extraluminal free air. Small amounts of free fluid tracking along the liver, along the right paracolic gutter, and into the pelvis. Vasculature: Moderate calcific atheromatous disease of the abdominal aorta and its major branches. No abdominal aortic aneurysm. Lymph nodes: No distinct pathologically enlarged lymphadenopathy. Urinary bladder: Urinary bladder is suboptimally visualized without focal abnormality. Reproductive: Reproductive structures are poorly visualized secondary to metal artifact. Bones/joints: Stable appearance of left hip arthroplasty with surrounding heterotopic osseous formation. Multilevel spondylosis. Soft tissues: Surgical clips present along the bilateral pelvic sidewalls. CT/CT abdomen pelvis w con* [id number] IMPRESSION: 1. Findings favored to represent gallstone ileus. A focal dense spherical object, measuring up to 2.5 cm in diameter, is located within a loop of small bowel (axial series 3, image 41; coronal series 5, image 36; sagittal series 6, image 43). This location corresponds with a transition point between distally decompressed small bowel and proximally fluid-distended bowel up to 2.6 cm. This object is favored to represent a gallstone which passed into the small intestine via a fistulous connection with the gallbladder. On prior CT abdomen/pelvis 06/09/2023, a 2.6 cm gallstone was present within the then mildly enlarged gallbladder. Common bile duct at that time measured up to 1.0 cm in diameter. 2. Focal contained air and fluid located at the expected area of the gallbladder bed adjacent to the proximal duodenum. 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 No distinct evidence of extraluminal free air to suggest an uncontained perforation. 3. Multiple loops of small bowel proximal to the migrated gallstone demonstrate mild bowel wall thickening with moderate surrounding edema. These findings are suggestive early or partial small bowel obstruction. 4. Small amounts of free fluid tracking along the liver, along the right paracolic gutter, and into the pelvis. 5. Mild intrahepatic and extrahepatic biliary ductal dilation. Common bile duct measures up to 1.0 cm in diameter. No distinct radiopaque filling defect within the bile ducts on CT. Occult choledocholithiasis is not excluded. COMMENTS: Consistent with the [employer]'s Incidental Findings Committee white paper (J Am Roshni Radiol 2018): Any incidental renal lesion less than 1 cm or classified as too small to characterize, or any incidental cystic renal lesion characterized as simple-appearing, is likely benign. No follow-up imaging is recommended for these lesions per consensus recommendations based on imaging criteria.
--- NOTE | 2024-05-23 19:29 | W.ED.ABDPA2 ---
HPI - Abdominal Pain General: Chief Complaint: Abdominal Pain Stated Complaint: ABD Pain\V Time Seen by Provider: 05/23/24 18:53 Source: patient Mode of arrival: ambulatory Limitations: no limitations History of Present Illness: 84-year-old male states has been having nausea vomiting diffuse abdominal pains been going on for 4 hours. States pain is cramping in his whole abdomen rates it a 7 out of 10 states had multiple episodes of vomiting. He denies any fevers denies any worse improving factors. Denies any chest pain Associated Symptoms: Reports nausea and vomiting; Denies chills, diarrhea, dysuria and fever(s) Related Data Home Medications ?Medication ?Instructions ?Recorded ?Confirmed ascorbic acid (vitamin C) 500 mg 500 mg PO BID@,03/08/20 02/03/24 tablet,extended release vitamin E 268 mg (400 unit) capsule 400 unit PO BID 05/02/20 02/03/24 omega [id number]-rcz-[id number]-fish oil 1,000 mg 1 cap PO DAILY 03/31/22 02/03/24 (120 mg-180 mg) capsule (Fish Oil) demecarium bromide 0.25 % eye drops drp ophthalmic (eye) 10/15/23 02/03/24 latanoprost 0.005 % eye drops 1 drp ophthalmic (eye) DAILY 10/15/23 02/03/24 Previous Rx's ?Medication ?Instructions ?Recorded wheeled walker #1 ea 09/17/20 cpap #1 ea 06/13/21 metoprolol tartrate 50 mg tablet See Rx Instructions .Route 08/03/23 .COMPLEX #180 tabs atorvastatin 40 mg tablet See Rx Instructions .Route 10/27/23 .COMPLEX #90 tabs clopidogrel 75 mg tablet See Rx Instructions .Route 10/27/23 .COMPLEX #90 tabs spironolactone 25 mg tablet See Rx Instructions .Route 11/19/23 .COMPLEX #30 tabs sacubitril 97 mg-valsartan 103 mg 0.5 tab PO BID #90 tabs 12/01/23 tablet (Entresto) nitroglycerin 0.4 mg sublingual 0.4 mg sublingual Q5M PRN Chest 01/25/24 tablet Pain #25 tabs pantoprazole 40 mg tablet,delayed 40 mg PO QAM #90 tabs 12/13/24 release apixaban 5 mg tablet (Eliquis) 5 mg PO BID #90 tabs 03/09/24 metoclopramide HCl 5 mg tablet 5 mg PO BID #60 tabs 03/14/24 (Reglan) digoxin 125 mcg (0.125 mg) tablet See Rx Instructions .Route 03/23/24 .COMPLEX #90 tabs ezetimibe 10 mg tablet See Rx Instructions .Route 03/23/24 .COMPLEX #90 tabs furosemide 40 mg tablet 40 mg PO DAILY #90 tabs 03/23/24 isosorbide mononitrate 30 mg 15 mg (1/2 x 30 mg) PO QPM #45 tabs 03/23/24 tablet,extended release 24 hr meloxicam 15 mg tablet 15 mg PO DAILY #90 tabs 03/29/24 potassium chloride 20 mEq 20 meq PO BID #180 tabs 03/30/24 tablet,extended release(part/cryst) allopurinol 300 mg tablet 300 mg PO DAILY #30 tabs 05/09/24 silver sulfadiazine 1 % topical 1 applic topical DAILY #25 grams 05/10/24 cream Allergies Allergy/AdvReac Type Severity Reaction Status Date / Time empagliflozin (From AdvReac Mild diarrhea Verified 05/23/24 19:00 Jardiance) Review of Systems Const: Denies: fever(s), chills, body aches or change in appetite ENMT: Denies: throat pain or dental pain Card: Denies: chest pain Resp: Denies: dyspnea GI: Reports: abdominal pain, nausea and vomiting; Denies: diarrhea : Denies: dysuria Musc: Denies: neck pain or back pain Skin/Breast: Denies: rash Neuro: Denies: headache(s) PFSH ED PFSH: Medical History Heart failure with reduced ejection fraction Acute on chronic systolic heart failure, NYHA class 4 Mediastinal adenopathy Acute exacerbation of CHF (congestive heart failure) Chronic kidney disease Ischemic cardiomyopathy Cardiac arrest High risk for any kind of surgical intervention, because of history of cardiac arrest with general anesthesia VENU (stress urinary incontinence), male Cardiac LV ejection fraction >40% Erectile dysfunction History of prostate cancer Congestive heart failure Osteoarthritis Atrial fibrillation Mitral valve regurgitation Atherosclerotic heart disease [place] coronary artery w/angina pectoris Ischemic cardiomyopathy History of 16 stents Dyslipidemia (high LDL; low HDL) Benign essential hypertension with target blood pressure below 140/90 Arteriosclerotic vascular disease Hiatal hernia Gout Essential (primary) hypertension GERD (gastroesophageal reflux disease) Hx of angiography Surgical History AICD (automatic cardioverter/defibrillator) present History of carpal tunnel release RIGHT June 22, 2015, Dr. Oliveira History of prostatectomy S/P PTCA (percutaneous transluminal coronary angioplasty) History of left hip replacement History of left shoulder replacement History of appendectomy History of hemorrhoidectomy History of inguinal hernia repair Family History Brother CAD (coronary artery disease) Diabetes Heart disease Father CAD (coronary artery disease) Heart disease Sister CAD (coronary artery disease) Cancer Diabetes Heart disease Mother Diabetes Stroke Grandmother Diabetes Denies family history of Clotting disorder Dementia Chronic kidney disease (CKD) Suicide Anesthesia complication Bleeding disorder Lung disease Social History Smoking and tobacco/nicotine status: former use of tobacco/nicotine Alcohol intake: never Substance/Drug Use: never Marital status: Current occupational status: retired Physical Exam Const: COMMON NORMALS: patient oriented x3 HENMT: COMMON NORMALS: normocephalic and atraumatic HEAD & SCALP: normocephalic and atraumatic Eye: COMMON NORMALS: conjunctivae normal CONJUNCTIVA: Yes conjunctivae normal Neck/C-Spine: COMMON NORMALS: full ROM and supple Chest: COMMONS NORMALS: normal inspection of the chest Resp: COMMON NORMALS: normal respiratory effort, No retractions, No use of accessory muscles and clear to auscultation bilaterally AUSCULTATION: clear to auscultation bilaterally Cardio: COMMON NORMALS: regular rate, regular rhythm and No murmurs present (Cardio) RATE: regular rate RHYTHM: regular rhythm GI: COMMON NORMALS: Normal to inspection, nondistended, normoactive bowel sounds present, Soft to palpation and no masses PALPATION: Yes Soft to palpation OTHER: diffuse tenderness Extremity: COMMON NORMALS: normal to inspection and full ROM Neuro: COMMON NORMALS: patient oriented x3, moves all extremities and no focal motor deficits Psych: COMMON NORMALS: mental status grossly normal, Normal thought process present and cooperative THOUGHT PROCESS: Normal thought process present Skin: COMMON NORMALS: no rashes or lesions noted and no wounds GENERAL SKIN EXAM: no rashes or lesions noted Course Vital Signs: Vital signs: Vital Signs Temperature 97.5 F L 05/23/24 18:57 Pulse Rate 72 05/23/24 18:57 Respiratory Rate 18 05/23/24 18:57 Blood Pressure 126/92 05/23/24 18:57 Pulse Oximetry 100 05/23/24 18:57 Oxygen Delivery Me thod Room Air 05/23/24 18:57 MDM - Abdominal Pain Medical Decision Making Patient presents with abdominal pain and vomiting CT shows a gallstone ileus I spoke to surgeon on-call who is coming to see the patient also spoke to hospitalist who will admit. Medical Records I reviewed the patient's medical records. Lab Data I reviewed the patient's lab results. 05/23/24 19:32 05/23/24 19:32 Labs/Radiology: Laboratory Results WBC 16.10 10^3/uL (3.29-11.43) H 05/23/24 19:32 RBC 5.53 10^6/uL (3.85-5.65) 05/23/24 19:32 Hgb 16.60 g/dL (11.27-16.99) 05/23/24 19:32 Hct 49.9 % (37-53) 05/23/24 19:32 MCV 90.2 fl (82-101) 05/23/24 19:32 MCH 30.0 pg (27-33) 05/23/24 19:32 MCHC 33.3 g/dL (30-55) 05/23/24 19:32 RDW 14.6 % (12.1-15.1) 05/23/24 19:32 Plt Count 280 10^3/cmm (157-399) 05/23/24 19:32 MPV 10.2 fL (7.4-10.4) 05/23/24 19:32 Neut % (Auto) 86.0 % 05/23/24 19:32 Lymph % (Auto) 9.7 % 05/23/24 19:32 [place] % (Auto) 2.4 % 05/23/24 19:32 Eos % (Auto) 1.1 % 05/23/24 19:32 Baso % (Auto) 0.2 % 05/23/24 19:32 Neut # (Auto) 13.84 10^3/uL (1.8-7.7) H 05/23/24 19:32 Lymph # (Auto) 1.6 10^3/uL (0.8-4.8) 05/23/24 19:32 [place] # (Auto) 0.4 10^3/uL (0.2-0.9) 05/23/24 19:32 Eos # (Auto) 0.2 10^3/uL (0.0-0.8) 05/23/24 19:32 Baso # (Auto) 0.0 10^3/uL (0.0-0.1) 05/23/24: Nucleated RBC % (auto) 0 % 05/23/24: Nucleated RBCs # 0.0 /100WBC 05/23/24 19:32 PT 18.00 SECONDS (12.1-14.9) H 05/23/24 19:32 INR 1.39 (0.8-1.2) H 05/23/24 19:32 Sodium 137 mmol/L (136-145) 05/23/24 19:32 Potassium 4.4 mmol/L (3.5-5.1) 05/23/24 19:32 Chloride 95 mmol/L (98-107) L 05/23/24 19:32 Carbon Dioxide 22 mmol/L (22-29) 05/23/24 19:32 Anion Gap 24.4 (5-19) H 05/23/24 19:32 BUN 31 mg/dL (8-23) H 05/23/24 19:32 Creatinine 1.6 mg/dL (0.7-1.2) H 05/23/24 19:32 GFR Calculation Not Reportable 05/23/24 19:32 Glucose 180 mg/dL (65-115) H 05/23/24 19:32 Calculated Osmolality 295 mOsm/kg (285-295) 05/23/24 19:32 Calcium 10.0 mg/dL (8.5-10.5) 05/23/24 19:32 Total Bilirubin 1.0 mg/dL (0.15-1.2) 05/23/24 19:32 AST 19 U/L (0-40) 05/23/24 19:32 ALT 17 U/L (0-41) 05/23/24 19:32 Alkaline Phosphatase 113 U/L (40-130) 05/23/24 19:32 Total Protein 7.7 g/dL (6.6-8.7) 05/23/24 19:32 Albumin 4.2 g/dL (3.5-5.2) 05/23/24 19:32 Globulin 3.5 g/dL (1.3-4.6) 05/23/24 19:32 Lipase 59 U/L (13-60) 05/23/24 19:32 All radiology interpretation(s) finalized by discharge Discharge Plan Discharge Patient Disposition: Admitted As Inpatient Clinical Impression: Gallstone ileus Condition: Stable Coding Level of Care Code ED 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
[2024-05-23] MEDS: sodium chloride 0.9% 1,000 ML 999 ML IV (19:47)
[2024-05-23] MEDS: ondansetron 2 mg/ML SDV 2 mL 4 MG IVP (19:47)
[2024-05-23] MEDS: morphine 4 mg/mL SDV 1 mL IVP (19:47)
[2024-05-23 19:59] LABS: Basophils % 0.2 %; Eosinophils # 0.2 10^3/uL (0.0-0.8); Eosinophils % 1.1 %; Hematocrit 49.9 % (37-53); Lymphocytes # 1.6 10^3/uL (0.8-4.8); Lymphocytes % 9.7 %; Mean Corpuscular HGB Conc 33.3 g/dL (30-55); Mean Corpuscular Volume 90.2 fl (82-101); Mean Platelet Volume 10.2 fL (7.4-10.4); Monocytes # 0.4 10^3/uL (0.2-0.9); Monocytes % 2.4 %; Neutrophils # 13.84 10^3/uL (1.8-7.7); Nucleated Red Blood Cells % 0 %; Platelet Count 280 10^3/cmm (157-399); Red Blood Count 5.53 10^6/uL (3.85-5.65); Red Cell Distribution Width 14.6 % (12.1-15.1)
[2024-05-23 20:16] LABS: INR 1.39 (0.8-1.2)
[2024-05-23 20:17] LABS: Alanine Aminotransferase 17 U/L (0-41); Albumin Level 4.2 g/dL (3.5-5.2); Alkaline Phosphatase 113 U/L (40-130); Anion Gap 24.4 (5-19); Aspartate Amino Transferase 19 U/L (0-40); Blood Urea Nitrogen 31 mg/dL (8-23); Carbon Dioxide 22 mmol/L (22-29); Chloride 95 mmol/L (98-107); Creatinine Clr Calc Pharmacy 34.1124; Globulin 3.5 g/dL (1.3-4.6); Glucose 180 mg/dL (65-115); Lipase 59 U/L (13-60); Osmolality Calculated 295 mOsm/kg (285-295); Potassium 4.4 mmol/L (3.5-5.1); Sodium 137 mmol/L (136-145); Total Protein 7.7 g/dL (6.6-8.7)
[2024-05-23 20:29] VITALS: BP 150/85; PULSE 61; RESP 20; O2SAT 97
[2024-05-23] MEDS: iohexol 350 mg/mL 500 mL Btl (per mL) IV (21:01)
--- NOTE | 2024-05-23 21:29 | PM.HP ---
Providers/Chief Complaint Admitting Physician: Dayana Hutchinson MD Primary Care Provider: Freddie Trimble MD Chief Complaint: ABD Pain\V History of Present Illness Although the patient was ANO x 3 at the time that he was seen postop, the patient was a poor historian & poor hearing without his hearing aids Stanislav Wu is a 84 year old man w/ multiple medical problems that include CAD, HFrEF, Afib, VISHNU, & Chronic pain who presented to the ED on 05/23/2024 w/ complaints of severe abdominal pain that began about 3pm. He states that he vomitted 8 times. He denies dysuria, hematuria. There is quite difficult to get other questions answered without him repeating that he had abdominal pain and vomited about 8 times. In the ED vital signs were significant for a RR of 20 and elevated BP as high as 154/113 mmHg. His labs are significant for leukocytosis of 16 and a likely CKD of 1.6. The patient's CT abdomen pelvis was significant for gallstone ileus causing bowel obstruction. THe patient was gsiven 1L NS bolus, and General surgery was consulted from the ED, the patient underwent an emergent laparotomy with bowel resection for intestinal ischemia. Post-op, I spoke with the Surgeon who made his recommendations. He was transferred to the floor, where his repeat lactic acid was 2.7,so he was given another 500cc bolus and started on 1L NS at 65cc/hr. Review of Systems General: Reports: ROS unobtainable due to medical condition Narrative: Constitutional: (-) fever(s), (-) chills, (-) body aches, (-) change in appetite, (-) change in weight, (-) fatigue, (-) malaise, (-) night sweats, (-) diaphoresis Eyes: (-) change in vision, (-) blurry vision, (-) diplopia, (-) floaters, ENT: (-) ear pain, (-) ear discharge, (-) aural fullness, (-) tinnitus, (-)nasal discharge, (-)nasal congestion, (-) post nasal drip, (-)dysphagia, (-)odynophagia, (-)hoarseness, Card: (-) Chest pain, (-) palpitations, (-) pedal edema, (-) orthopnea, (-) lightheadedness, (-) syncope, (-) pre-syncope, (-) leg pain with exertion Resp: (-)dyspnea, (-)dyspnea on exertion, (-) cough, (-) wheezing, (-) hemoptysis GI: (-) abdominal pain, (-) nausea, (-) vomiting, (-) hematemesis, (-) diarrhea, (-) constipation, (-) hematochezia, (-) melena : (-) flank pain, (-) dysuria, (-) hematuria, (-) urinary urgency, (-) urinary frequency, (-)oliguria, (-) difficulty voiding, (-) urinary incontinence, (-) urinary hesitancy, (-) dribbling, (-) nocturia, (-) genital pruritis, (-)vaginal odor, (-) vaginal discharge, (-) vaginal bleeding, (-) dysmenorrhea MSK: (-) myalgias, (-) arthralgias Skin/Breast: (-) rash, (-) sores, (-) new lesions, (-) breast tenderness, (-) breast pain, or (-) nipple discharge Neuro: (-) headaches, (-) dizziness, (-) generalized weakness, (-) weakness in the extremities, (-) numbness in extremities, (-) tingling, (-) frequent falls, (-) Slurred speech present, (-) seizure-like activity, (-) involuntary movements, (-) restless legs Psych: (-) anxiety, (-) depression, (-)paranoia, (-) visual hallucinations, (-) auditory hallucinations, (-)tactile hallucinations, (-) suicidal ideation, (-) homicidal ideation Endo: (-) polyuria, (-) polydipsia, (-) polyphagia, (-)cold intolerance, (-) heat intolerance Heme/Lymph: (-) easy bruising, (-) easy bleeding, (-) petechiae, (-) purpura, (-) enlarged lymph nodes, (-) tender lymph nodes Allergy/Immunlogy: (-) food intolerance, (-) hives/urticaria, (-) itchy/watery eyes, (-) tongue/throat swelling, (-) facial swelling, Medications/Allergies Home Medications ?Medication ?Instructions ?Recorded ?Confirmed ?Last Taken ?Type latanoprost 0.005 % eye drops 1 drp ophthalmic (eye) DAILY 10/15/23 05/24/24 Unknown History sacubitril 97 mg-valsartan 103 mg 0.5 tab PO BID #90 tabs 12/01/23 05/24/24 Unknown Rx tablet (Entresto) nitroglycerin 0.4 mg sublingual 0.4 mg sublingual Q5M PRN Chest 01/25/24 05/24/24 Unknown Rx tablet Pain #25 tabs pantoprazole 40 mg tablet,delayed 40 mg PO QAM #90 tabs 02/05/24 05/24/24 05/23/24 Rx release apixaban 5 mg tablet (Eliquis) 5 mg PO BID #90 tabs 03/09/24 05/24/24 05/23/24 Rx metoclopramide HCl 5 mg tablet 5 mg PO BID #60 tabs 03/14/24 05/24/24 Unknown Rx (Reglan) furosemide 40 mg tablet 40 mg PO DAILY #90 tabs 03/23/24 05/24/24 05/23/24 Rx isosorbide mononitrate 30 mg 15 mg (1/2 x 30 mg) PO QPM #45 tabs 03/23/24 05/24/24 05/23/24 Rx tablet,extended release 24 hr meloxicam 15 mg tablet 15 mg PO DAILY #90 tabs 03/29/24 05/24/24 05/23/24 Rx potassium chloride 20 mEq 20 meq PO BID #180 tabs 03/30/24 05/24/24 05/23/24 Rx tablet,extended release(part/cryst) allopurinol 300 mg tablet 300 mg PO DAILY #30 tabs 05/09/24 05/24/24 05/23/24 Rx atorvastatin 40 mg tablet 40 mg PO DAILY 05/24/24 05/24/24 05/23/24 History brimonidine 0.2 % eye drops 1 drp ophthalmic (eye) DAILY 05/24/24 05/24/24 Unknown History clopidogrel 75 mg tablet 75 mg PO DAILY 05/24/24 05/24/24 05/23/24 History digoxin 125 mcg (0.125 mg) tablet 125 mg PO DAILY 05/24/24 05/24/24 05/23/24 History ezetimibe 10 mg tablet 10 mg PO DAILY 05/24/24 05/24/24 05/23/24 History metoprolol tartrate 50 mg tablet 50 mg PO DAILY 05/24/24 05/24/24 05/23/24 History spironolactone 25 mg tablet 12.5 mg PO QAM 05/24/24 05/24/24 05/23/24 History Allergies Allergy/AdvReac Type Severity Reaction Status Date / Time empagliflozin (From AdvReac Mild diarrhea Verified 05/23/24 19:00 Jardiance) PFSH Acute PFSH: Medical History Heart failure with reduced ejection fraction Acute on chronic systolic heart failure, NYHA class 4 Mediastinal adenopathy Acute exacerbation of CHF (congestive heart failure) Chronic kidney disease Ischemic cardiomyopathy Cardiac arrest High risk for any kind of surgical intervention, because of history of cardiac arrest with general anesthesia VENU (stress urinary incontinence), male Cardiac LV ejection fraction >40% Erectile dysfunction History of prostate cancer Congestive heart failure Osteoarthritis Atrial fibrillation Mitral valve regurgitation Atherosclerotic heart disease [place] coronary artery w/angina pectoris Ischemic cardiomyopathy History of 16 stents Dyslipidemia (high LDL; low HDL) Benign essential hypertension with target blood pressure below 140/90 Arteriosclerotic vascular disease Hiatal hernia Gout Essential (primary) hypertension GERD (gastroesophageal reflux disease) Hx of angiography Surgical History AICD (automatic cardioverter/defibrillator) present History of carpal tunnel release RIGHT June 22, 2015, Dr. Oliveira History of prostatectomy S/P PTCA (percutaneous transluminal coronary angioplasty) History of left hip replacement History of left shoulder replacement History of appendectomy History of hemorrhoidectomy History of inguinal hernia repair Family History Brother CAD (coronary artery disease) Diabetes Heart disease Father CAD (coronary artery disease) Heart disease Sister CAD (coronary artery disease) Cancer Diabetes Heart disease Mother Diabetes Stroke Grandmother Diabetes Denies family history of Clotting disorder Dementia Chronic kidney disease (CKD) Suicide Anesthesia complication Bleeding disorder Lung disease Social History Smoking and tobacco/nicotine status: former use of tobacco/nicotine Alcohol intake: never Substance/Drug Use: never Marital status: Current occupational status: retired Vitals/I&O/Wt Last Vital Signs Temp 97.5 F L 05/23/24 18:57 Pulse 72 05/23/24 18:57 Resp 18 05/23/24 18:57 BP 126/92 05/23/24 18:57 Pulse Ox 100 05/23/24 18:57 O2 Del Method Room Air 05/23/24 18:57 Weight last 48 hrs Weight 72.575 kg Physical Exam Narrative: Constitutional: GENERAL APPEARANCE: cooperative, comfortable and appears older than stated age; not combative, not disheveled, not ill appearing and not frail appearing HENT: HEAD & SCALP: normocephalic and atraumatic; NOSE: external nose not normal EXTERNAL EAR: no external ears normal MOUTH: Normal oral and palatal mucosa present THROAT: posterior oropharynx normal Eye: PERRL, EOMI, normal conjunctiva b/l Neck: normal visual inspection, trachea midline, No anterior neck swelling, No tracheal deviation, No tracheostomy present, no submandibular swelling, Thyroid normal , cervical ROM normal Lymph: no cervical, supraclavicular LAD Resp: no use of accessory muscles, CTAB, no w/r/r Cardio: rate controlled irrgeular rate and rhythm, no m/r/g, or clicks. 2+ radial and DP pulses. GI: normoactive bowel sounds, TTP to light palpation at the surgical site. Abdominal binder in place. Non-distended, no guarding, no rigidity, + rebound tenderness, no hepatosplenomegaly. NGT in place to low intermittent suction : (-) CVA tenderness Back/Pelvis: Deferred Extremity: No clubbing, No cyanosis and No edema Neuro: AO to person, place and time. CN normal except as noted. Normal gait present. 5/5 motor strength present throughout. Normal motor muscle tone present throughout. Psych: difficult to assess given mental status Data 05/24/24 02:40 05/24/24 02:40 A&P Assessment and plan (1) Gallstone ileus: (2) SIRS (systemic inflammatory response syndrome): (3) S/P laparotomy: (4) Acute ischemia of small intestine: Plan Stanislav Wu is a 84 year old man w/ multiple medical problems that include CAD, HFrEF, Afib, VISHNU, & Chronic pain who presented to the ED on 05/23/2024 w/ complaints of severe abdominal pain that began about 3pm. He was transferred to the floor, where his repeat lactic acid was 2.7,so he was given another 500cc bolus and started on 1L NS at 65cc/hr. #SIRS: Likely due to his gallstone ileus: Bowel is l s/p surgery #Gallstone ileus causing a bowel obstruction & Acute Intestinal Ischemia s/p laparotomy w/ bowel resection - NGT in place to low intermittent suction. Patient is currently NPO. - F/u BCx - Continue Zosyn. Add Vancomycin. - Pain control prescribed #Rate controlled Afib - F/u ordered daily digoxin levels and dose accordingly - Hold Apixaban per surgery wishes until at least 24hrs post op #Possible MYRON vs CKD: Monitor #HTN: Hydralazine IVP prn ordered. Held home meds. #HLD: Held home meds #GERD: IV meds ordered #Glaucoma: Please find out which eyes need Latanoprost. #Chronic pain: See gallstone ileus section #VISHNU:unclear whether he is on CPAP at home. DVT PPx:SCDs ordered GI ppx: PPI ordered PDMP PDMP Reviewed: Not Reviewed Attestations Medical Necessity Statement*: The patient needs to be hospitalized for greater than 2 midnights for his gallstone ileus status post laparotomy for bowel ischemia caused by the gallstone ileus. Premature discharge risks deterioration or early demise of the patient. Diagnoses Gallstone ileus K56.3 SIRS (systemic inflammatory response syndrome) R65.10 S/P laparotomy Z98.890 Acute ischemia of small intestine K55.019
--- NOTE | 2024-05-23 21:44 | ANES.PREANE2 ---
Pre-Anesthetic Assessment Height/Weight: Height 1.75 m Weight 72.575 kg Temp Pulse Resp BP Pulse Ox O2 Del Method 97.5 F L 72 18 126/92 100 Room Air 05/23/24 18:57 05/23/24 18:57 05/23/24 18:57 05/23/24 18:57 05/23/24 18:57 05/23/24 18:57 Familial anesthetic complications: None Social No alcohol and No tobacco Exam alert, oriented x 3, clear to auscultation bilaterally and regular rate & rhythm Pulmonary Sleep Apnea CV/HEM Atrial Fibrillation, Coronary Artery Disease (stents), Congestive Heart Failure, Hypertension and Myocardial Infarction AICD 06/16 echo CONCLUSIONS Severe diffuse hypokinesia left-ventricular especially involving the mid and apical segments. LV ejection fraction is around 35 to 40%((visual). Moderately increased left atrial size. Mild mitral annular calcification. Mild aortic valve regurgitation. Mild-moderate mitral valve regurgitation. There is no pericardial effusion. There are no intracardiac masses. 2020 stress test Conclusion: 1. Normal EKG response to Lexiscan infusion 2. No Lexiscan induced chest pain or cardiac arrhythmia. 3. Normal blood pressure and heart rate response. 4. Sestamibi/sestamibi perfusion scan pending; see separate report. GI Gastroesophageal Reflux Disease Anesthetic Plan ASA status: 4E Anesthesia: General Risk of > 500 ml blood loss (7ml/kg in children): No Medications/Allergies Home Medications ?Medication ?Instructions ?Recorded ?Confirmed ?Last Taken ?Type ascorbic acid (vitamin C) 500 mg 500 mg PO BID@06,17 03/08/20 02/03/24 06/09/23 History tablet,extended release vitamin E 268 mg (400 unit) capsule 400 unit PO BID 05/02/20 02/03/24 06/09/23 History wheeled walker #1 ea 09/17/20 02/03/24 Unknown Rx cpap #1 ea 06/13/21 02/03/24 Unknown Rx omega 2-arf-llt-fish oil 1,000 mg 1 cap PO DAILY 03/31/22 02/03/24 06/09/23 History (120 mg-180 mg) capsule (Fish Oil) metoprolol tartrate 50 mg tablet See Rx Instructions .Route 08/03/23 02/03/24 Unknown Rx .COMPLEX #180 tabs demecarium bromide 0.25 % eye drops drp ophthalmic (eye) 10/15/23 02/03/24 Unknown History latanoprost 0.005 % eye drops 1 drp ophthalmic (eye) DAILY 10/15/23 02/03/24 Unknown History atorvastatin 40 mg tablet See Rx Instructions .Route 10/27/23 02/03/24 Unknown Rx .COMPLEX #90 tabs clopidogrel 75 mg tablet See Rx Instructions .Route 10/27/23 02/03/24 Unknown Rx .COMPLEX #90 tabs spironolactone 25 mg tablet See Rx Instructions .Route 11/19/23 02/03/24 Unknown Rx .COMPLEX #30 tabs sacubitril 97 mg-valsartan 103 mg 0.5 tab PO BID #90 tabs 12/01/23 02/03/24 Unknown Rx tablet (Entresto) nitroglycerin 0.4 mg sublingual 0.4 mg sublingual Q5M PRN Chest 01/25/24 02/03/24 Unknown Rx tablet Pain #25 tabs pantoprazole 40 mg tablet,delayed 40 mg PO QAM #90 tabs 02/05/24 Unknown Rx release apixaban 5 mg tablet (Eliquis) 5 mg PO BID #90 tabs 03/09/24 Unknown Rx metoclopramide HCl 5 mg tablet 5 mg PO BID #60 tabs 03/14/24 Unknown Rx (Reglan) digoxin 125 mcg (0.125 mg) tablet See Rx Instructions .Route 03/23/24 Unknown Rx .COMPLEX #90 tabs ezetimibe 10 mg tablet See Rx Instructions .Route 03/23/24 Unknown Rx .COMPLEX #90 tabs furosemide 40 mg tablet 40 mg PO DAILY #90 tabs 03/23/24 Unknown Rx isosorbide mononitrate 30 mg 15 mg (1/2 x 30 mg) PO QPM #45 tabs 03/23/24 Unknown Rx tablet,extended release 24 hr meloxicam 15 mg tablet 15 mg PO DAILY #90 tabs 03/29/24 Unknown Rx potassium chloride 20 mEq 20 meq PO BID #180 tabs 03/30/24 Unknown Rx tablet,extended release(part/cryst) allopurinol 300 mg tablet 300 mg PO DAILY #30 tabs 05/09/24 Unknown Rx silver sulfadiazine 1 % topical 1 applic topical DAILY #25 grams 03/18/25 Unknown Rx cream Allergies Allergy/AdvReac Type Severity Reaction Status Date / Time empagliflozin (From AdvReac Mild diarrhea Verified 05/23/24 19:00 Jardiance) [facility] Anesthesia Medical History Heart failure with reduced ejection fraction Acute on chronic systolic heart failure, NYHA class 4 Mediastinal adenopathy Acute exacerbation of CHF (congestive heart failure) Chronic kidney disease Ischemic cardiomyopathy Cardiac arrest High risk for any kind of surgical intervention, because of history of cardiac arrest with general anesthesia VENU (stress urinary incontinence), male Cardiac LV ejection fraction >40% Erectile dysfunction History of prostate cancer Congestive heart failure Osteoarthritis Atrial fibrillation Mitral valve regurgitation 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 Oliveira History of prostatectomy S/P PTCA (percutaneous transluminal coronary angioplasty) History of left hip replacement History of left shoulder replacement History of appendectomy History of hemorrhoidectomy History of inguinal hernia repair Family History Brother CAD (coronary artery disease) Diabetes Heart disease Father CAD (coronary artery disease) Heart disease Sister CAD (coronary artery disease) Cancer Diabetes Heart disease Mother Diabetes Stroke Grandmother Diabetes Denies family history of Clotting disorder Dementia Chronic kidney disease (CKD) Suicide Anesthesia complication Bleeding disorder Lung disease Social History Smoking and tobacco/nicotine status: former use of tobacco/nicotine Alcohol intake: never Substance/Drug Use: never Marital status: Current occupational status: retired Data Anesthesia 05/23/24 19:32 05/23/24 19:32 Short CBC 05/23/24 Range/Units 19:32 WBC 16.10 H (3.29-11.43) 10^3/uL Hgb 16.60 (11.27-16.99) g/dL Hct 49.9 (37-53) % MCV 90.2 (82-101) fl Plt Count 280 (157-399) 10^3/cmm Neut % (Auto) 86.0 % Neut # (Auto) 13.84 H (1.8-7.7) 10^3/uL BMP 05/23/24 19:32 Sodium 137 Potassium 4.4 Chloride 95 L Carbon Dioxide 22 BUN 31 H Creatinine 1.6 H Glucose 180 H Calcium 10.0 Liver Function 05/23/24 Range/Units 19:32 Total Bilirubin 1.0 (0.15-1.2) mg/dL AST 19 (0-40) U/L ALT 17 (0-41) U/L Alkaline Phosphatase 113 (40-130) U/L Albumin 4.2 (3.5-5.2) g/dL Coags 05/23/24 19:32 PT 18.00 H INR 1.39 H Cardiac Studies: Echocardiogram 06/15/23 Echocardiogram Limited Views 12/12/20 Echocardiogram Ultrasound 03/01/20 Sestamibi Stress Test (Cardiology) 06/21/20 Holter Monitor 03/12/20
[2024-05-23 21:59] VITALS: BP 154/113; PULSE 71; RESP 18; O2SAT 98
--- NOTE | 2024-05-23 22:05 | PM.CONSULT ---
Providers/Reason For Consult Consulting Physician/Specialty*: General Surgery Reason for Consult*: Gallstone ileus Primary Care Provider: Freddie Trimble MD History of Present Illness History of Present Illness Stanislav Wu is a 84 year old male who presents with 6 hours of severe abdominal pain located in the mesogastrium. Pain has been associated with nausea and vomiting. Workup in the emergency department show evidence of a gallstone ileus. Review of Systems General: Reports: 10 or more systems reviewed and unremarkable except in HPI and below Medications/Allergies Home Medications ?Medication ?Instructions ?Recorded ?Confirmed ?Last Taken ?Type ascorbic acid (vitamin C) 500 mg 500 mg PO BID@06,17 03/08/20 02/03/24 06/09/23 History tablet,extended release vitamin E 268 mg (400 unit) capsule 400 unit PO BID 05/02/20 02/03/24 06/09/23 History wheeled walker #1 ea 09/17/20 02/03/24 Unknown Rx cpap #1 ea 06/13/21 02/03/24 Unknown Rx omega 0-vmt-jcb-fish oil 1,000 mg 1 cap PO DAILY 03/31/22 02/03/24 06/09/23 History (120 mg-180 mg) capsule (Fish Oil) metoprolol tartrate 50 mg tablet See Rx Instructions .Route 08/03/23 02/03/24 Unknown Rx .COMPLEX #180 tabs demecarium bromide 0.25 % eye drops drp ophthalmic (eye) 10/15/23 02/03/24 Unknown History latanoprost 0.005 % eye drops 1 drp ophthalmic (eye) DAILY 10/15/23 02/03/24 Unknown History atorvastatin 40 mg tablet See Rx Instructions .Route 10/27/23 02/03/24 Unknown Rx .COMPLEX #90 tabs clopidogrel 75 mg tablet See Rx Instructions .Route 10/27/23 02/03/24 Unknown Rx .COMPLEX #90 tabs spironolactone 25 mg tablet See Rx Instructions .Route 11/19/23 02/03/24 Unknown Rx .COMPLEX #30 tabs sacubitril 97 mg-valsartan 103 mg 0.5 tab PO BID #90 tabs 12/01/23 02/03/24 Unknown Rx tablet (Entresto) nitroglycerin 0.4 mg sublingual 0.4 mg sublingual Q5M PRN Chest 01/25/24 02/03/24 Unknown Rx tablet Pain #25 tabs pantoprazole 40 mg tablet,delayed 40 mg PO QAM #90 tabs 02/05/24 Unknown Rx release apixaban 5 mg tablet (Eliquis) 5 mg PO BID #90 tabs 03/09/24 Unknown Rx metoclopramide HCl 5 mg tablet 5 mg PO BID #60 tabs 03/14/24 Unknown Rx (Reglan) digoxin 125 mcg (0.125 mg) tablet See Rx Instructions .Route 03/23/24 Unknown Rx .COMPLEX #90 tabs ezetimibe 10 mg tablet See Rx Instructions .Route 03/23/24 Unknown Rx .COMPLEX #90 tabs furosemide 40 mg tablet 40 mg PO DAILY #90 tabs 03/23/24 Unknown Rx isosorbide mononitrate 30 mg 15 mg (1/2 x 30 mg) PO QPM #45 tabs 03/23/24 Unknown Rx tablet,extended release 24 hr meloxicam 15 mg tablet 15 mg PO DAILY #90 tabs 03/29/24 Unknown Rx potassium chloride 20 mEq 20 meq PO BID #180 tabs 03/30/24 Unknown Rx tablet,extended release(part/cryst) allopurinol 300 mg tablet 300 mg PO DAILY #30 tabs 05/09/24 Unknown Rx silver sulfadiazine 1 % topical 1 applic topical DAILY #25 grams 05/10/24 Unknown Rx cream Allergies Allergy/AdvReac Type Severity Reaction Status Date / Time empagliflozin (From AdvReac Mild diarrhea Verified 05/23/24 19:00 Jardiance) PFSH Acute PFSH: Medical History Heart failure with reduced ejection fraction Acute on chronic systolic heart failure, NYHA class 4 Mediastinal adenopathy Acute exacerbation of CHF (congestive heart failure) Chronic kidney disease Ischemic cardiomyopathy Cardiac arrest High risk for any kind of surgical intervention, because of history of cardiac arrest with general anesthesia VENU (stress urinary incontinence), male Cardiac LV ejection fraction >40% Erectile dysfunction History of prostate cancer Congestive heart failure Osteoarthritis Atrial fibrillation Mitral valve regurgitation Atherosclerotic heart disease tejon coronary artery w/angina pectoris Ischemic cardiomyopathy History of 16 stents Dyslipidemia (high LDL; low HDL) Benign essential hypertension with target blood pressure below 140/90 Arteriosclerotic vascular disease Hiatal hernia Gout Essential (primary) hypertension GERD (gastroesophageal reflux disease) Hx of angiography Surgical History AICD (automatic cardioverter/defibrillator) present History of carpal tunnel release RIGHT June 22, 2015, Dr. Oliveira History of prostatectomy S/P PTCA (percutaneous transluminal coronary angioplasty) History of left hip replacement History of left shoulder replacement History of appendectomy History of hemorrhoidectomy History of inguinal hernia repair Family History Brother CAD (coronary artery disease) Diabetes Heart disease Father CAD (coronary artery disease) Heart disease Sister CAD (coronary artery disease) Cancer Diabetes Heart disease Mother Diabetes Stroke Grandmother Diabetes Denies family history of Clotting disorder Dementia Chronic kidney disease (CKD) Suicide Anesthesia complication Bleeding disorder Lung disease Social History Smoking and tobacco/nicotine status: former use of tobacco/nicotine Alcohol intake: never Substance/Drug Use: never Marital status: Current occupational status: retired Vitals/I&O/Wt Last Vital Signs Temp 97.5 F L 05/23/24 18:57 Pulse 72 05/23/24 18:57 Resp 18 05/23/24 18:57 BP 126/92 05/23/24 18:57 Pulse Ox 100 05/23/24 18:57 O2 Del Method Room Air 05/23/24 18:57 Weight last 48 hrs Weight 160 lb Physical Exam GI: OTHER: Abdomen is soft, diffusely tender to palpation. Nondistended at this time. Data 05/23/24 19:32 05/23/24 19:32 A&P Assessment and plan (1) Gallstone ileus: Plan This is a 84-year-old male with multiple medical comorbidities including heart failure, history of chronic anticoagulation, A-fib. He presents with a gallstone ileus. White count is 16, abdominal exam so significant tenderness in the abdomen, CT scan show evidence of a transition point at the level of the mid jejunum where the Stallman appears to be large, there is edema of the adjacent bowel loops indicating a bowel obstruction at the level. Patient extensive discussion with the patient regarding the need for surgery. He is extremely high risk and need for any kind of surgical intervention, due to the emergent nature of the patient presentation will have to proceed to the OR despite the fact that he is currently on active anticoagulation. He has increased risk of bleeding, morbidity and mortality from this operation. I discussed all recent benefits of a laparotomy with possible bowel resection. I informed the patient there is a risk for leak, need for additional interventions, hernia formation, major bleeding resulting in , persistent ileus, injury to adjacent structures, sepsis. She shows understanding agrees to proceed. 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 Cholecystoduodenal fistula takedown should be done in the second surgical time after medical optimization this can be done in an elective setting after these initial emergent presentation. PDMP PDMP Reviewed: Not Reviewed Coding Level of Care Code 05789 Diagnoses Gallstone ileus K56.3
[2024-05-23 22:11] VITALS: BP 118/70; PULSE 80; RESP 18; TEMP 37.1; O2SAT 94
[2024-05-23] MEDS: piperacillin-tazobactam 3.375 GM in sodium chloride 0.9% (plus) 50 ML IV (22:55)
[2024-05-24] VITALS (19 sets, daily range): BP systolic 118–153; BP diastolic 56–88; PULSE 62–102; RESP 15–23; TEMP 36.2–37.2; O2SAT 90–99; BMI 23.6
--- NOTE | 2024-05-24 01:14 | P.OP_ITS ---
Operative Report Date of procedure: May 24, 2024 Pre-op diagnosis: Gallstone ileus Post-op diagnosis: Gallstone ileus with intestinal ischemia Post-op findings: At about 60 cm from the ligament of Treitz a stone could be felt which in the small bowel. Centimeters of the small bowel [id number] to the stone appear hemorrhagic, ischemic and edematous. Procedure done: Exploratory laparotomy with resection of a small bowel and primary anastomosis Specimens removed/disposition: Segment of the small bowel Surgeon: Clifton Au MD Hospital Staff Pharmacist: FANY OR STaff Estimated blood loss: 10 Complications: none Brief History: This is a 84-year-old male who presents with abdominal pain nausea and vomit and has a CT scan consistent with a small bowel obstruction gallstone ileus. After discussion on risk benefits with side to proceed to the OR for exploration Procedure: Patient was brought into the OR, he was placed in a supine position. General anesthesia was given. The abdomen was prepped and draped in the usual sterile fashion. A timeout was conducted. A midline laparotomy measuring about 20 cm was made from the supraumbilical region to the infraumbilical region. The incision was deepened until the fascia was identified, the fascia was opened with electrocautery and then the peritoneum was opened with Metzenbaum. Careful consideration of hemostasis was taken to the patient history of coagulopathy due to medication. I will attempted to be surveyed the small bowel but there was a thick band of omentum that was adhesed to the pelvis on the right hemiabdomen. I had to lyse these adhesions using electrocautery and ligature and then I was able to deflect the omentum cephalad and eviscerate the small bowel. About 60 cm from the ligament of Treitz a stone was noted wedged in the small bowel the proximal bowel was dilated while the distal bowel was completely collapsed. The distal bowel appeared healthy but the immediate 15 cm proximal to the stone were edematous, hemorrhagic and ischemic appearing. This bowel did not appear viable and therefore I decided to proceed with resection and anastomosis. I resected the segment of small bowel that appeared ischemic including the area where the stone was lodged. The resection anastomosis was done in standard fashion using a 100 mm blue load GRAHAM stapler. After anastomosis was completed I proceeded to use a 3-0 Vicryl to close the mesenteric defect and a 3-0 Vicryl was used to pull the crotch stitch. I then ran the bowel and ensure there was no other pathology, no evidence of pathology from the ligament of Treitz to the terminal ileum was noted. I verified the position of the NG tube in the stomach. 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 The abdomen was irrigated with 1 L of saline. I then proceeded to use Vistaseal to call the anastomosis. The omentum was then pulled down to cover the whole a small bowel. I then proceeded to close the abd omen in layers using a #0 looped PDS for the fascia and chepe for the skin. Sterile dressing was applied and abdominal binder was placed. The patient tolerated well the procedure, was transferred to the PACU in stable condition
--- NOTE | 2024-05-24 01:23 | PC.NURSE ---
1320 - art line discontinued from pts right wrist - pressure held for 5 minutes - 2x2 and secured with coban
[2024-05-24] MEDS: acetaminophen 1,000 MG/100 ML PIGGYBACK 400 MG IV ×3 (02:52→17:29)
[2024-05-24] MEDS: pantoprazole 40 mg SDV IVP ×2 (02:52→15:55)
[2024-05-24] MEDS: sodium chloride 0.9% 1,000 ML 65 ML IV (03:00)
[2024-05-24 03:08] LABS: Basophils % 0.1 %; Hematocrit 45.1 % (37-53); Lymphocytes # 0.4 10^3/uL (0.8-4.8); Mean Corpuscular HGB Conc 32.8 g/dL (30-55); Mean Corpuscular Hemoglobin 29.8 pg (27-33); Mean Corpuscular Volume 90.7 fl (82-101); Mean Platelet Volume 10.2 fL (7.4-10.4); Monocytes # 0.4 10^3/uL (0.2-0.9); Monocytes % 1.8 %; Neutrophils # 20.09 10^3/uL (1.8-7.7); Neutrophils % 95.7 %; Nucleated Red Blood Cells % 0 %; Platelet Count 229 10^3/cmm (157-399); Red Blood Count 4.97 10^6/uL (3.85-5.65); Red Cell Distribution Width 14.6 % (12.1-15.1)
[2024-05-24 03:14] LABS: Lactic Sepsis W/Reflex 2.3 mmol/L (0.5-2.2)
[2024-05-24 03:25] LABS: Alanine Aminotransferase 14 U/L (0-41); Alkaline Phosphatase 82 U/L (40-130); Aspartate Amino Transferase 17 U/L (0-40); Blood Urea Nitrogen 29 mg/dL (8-23); Calcium 8.3 mg/dL (8.5-10.5); Carbon Dioxide 18 mmol/L (22-29); Chloride 103 mmol/L (98-107); Creatinine Clr Calc Pharmacy 36.3866; Globulin 2.3 g/dL (1.3-4.6); Glucose 207 mg/dL (65-115); Magnesium 1.8 mg/dL (1.7-2.3); Osmolality Calculated 294 mOsm/kg (285-295); Phosphorus 2.9 mg/dL (2.5-4.5); Sodium 136 mmol/L (136-145); Total Bilirubin 1.1 mg/dL (0.15-1.2); Total Protein 6.3 g/dL (6.6-8.7)
[2024-05-24 03:26] LABS: Digoxin 1.7 ng/mL (0.6-1.2)
[2024-05-24 04:39] LABS: Reflex Lactate Order REFLEX LACTIC ORDERD
[2024-05-24] MEDS: sodium chloride 0.9% 500 ML IV (05:25)
[2024-05-24] MEDS: piperacillin-tazobactam 4.5 GM in sodium chloride 0.9% (plus) 50 ML IV (06:10)
[2024-05-24 06:13] LABS: Lactic Acid level (Lactate) 1.9 mmol/L (0.5-2.2)
[2024-05-24 06:51] LABS: Glucose Point of Care 188 mg/dL (70-110)
--- NOTE | 2024-05-24 09:16 | PC.CHAP ---
Pastoral Care Encounter/Spiritual Assessment Type of Contact [] Declined switching clerk visit [] Patient/Family/Request visit [] Outpatient visit [] Follow-up visit [] Physician referral [] Code/Alert [] Routine visit [] Staff referral [] Actively dying [x] Patient sleeping [] Family support [] [] Out of room [] Palliative care [] [] Receiving care in room [] Pre-surgical visit [] Trauma [] Long length of stay [] ICU visit [] Other: Relational/Emotional Strength [] Patient feels connected with others/family/visitors/staff [] Distress [] Loneliness/isolation [] Abandonment Spirituality of Patient [] Person of Veronica [] Attends Orthodoxy of their Veronica [] Believes in Prayer [] Reads Bible or Temple materials [] There are Spiritual issues to be addressed Cellular Tower Climber Interventions [] Prayer [] Active listening [] Non-anxious presence [] Spiritual/emotional support [] Crisis/trauma care [] Spiritual counseling [] Bereavement support [] Provided bereavement packet [] Provided Bible/devotional materials [] Provided toy/stuffed animal, coloring book to patient or family member [] Provided Communion [] Anointing/[place] [] Salvation [] Completed spiritual assessment [] Other: Impact on Illness or Injury [] Angry [] Fearful [] Anxious [] Often cries [] Exhaustion [] Unable to work [] Unable to attend synagogue [] Unable to walk/stand [] Unable to read [] Unable to drive [] Unable to eat/drink [] Unable to sleep [] Unable to be with family [] Patient intubated [] Other: Summary Time spent with patient
--- NOTE | 2024-05-24 09:32 | PHA.VACGOAL ---
Vancomycin Goal - Goal Vancomycin Goal:: 15-20 mg/L Vancomycin Indication:: Other (SEPSIS) - Therapy Current therapy:: Pip/Tazo Day of therpy:: Day 1 of [] Actual body weight (kg): 160 lb - Data Labs: WBC 21.00 10^3/uL (3.29-11.43) H 05/24/24 02:40 RBC 4.97 10^6/uL (3.85-5.65) 05/24/24 02:40 Hgb 14.80 g/dL (11.27-16.99) 05/24/24 02:40 Hct 45.1 % (37-53) 05/24/24 02:40 MCV 90.7 fl (82-101) 05/24/24 02:40 MCH 29.8 pg (27-33) 05/24/24 02:40 MCHC 32.8 g/dL (30-55) 05/24/24 02:40 RDW 14.6 % (12.1-15.1) 05/24/24 02:40 Sodium 136 mmol/L (136-145) 05/24/24 02:40 Potassium 5.0 mmol/L (3.5-5.1) 05/24/24 02:40 Chloride 103 mmol/L (98-107) 05/24/24 02:40 Carbon Dioxide 18 mmol/L (22-29) L 05/24/24 02:40 Anion Gap 20.0 (5-19) H 05/24/24 02:40 BUN 29 mg/dL (8-23) H 05/24/24 02:40 Creatinine 1.5 mg/dL (0.7-1.2) H 05/24/24 02:40 GFR Calculation Not Reportable 05/24/24 02:40 Last dialysis session:: N/A Treatment plan:: new consult Regimen:: LOADING DOSE OF 2000 MG PER DOSING PROTOCOL. MAINTENANCE DOSE OF 1000 MG Q24H Follow up:: WILL CONTINUE TO MONITOR AND FOLLOW UP DAILY
[2024-05-24] MEDS: vancomycin 2,000 MG/400 ML PIGGYBACK 200 MG IV (11:56)
[2024-05-24 12:21] LABS: Glucose Point of Care 187 mg/dL (70-110)
--- NOTE | 2024-05-24 12:42 | USCV_ITS ---
Stanislav Wu Age: 84 Gender: M : 1940 Exam Date: 05/24/2024 19:36 Ordering Phys: Agustin Rodgers MD Technologist: BASILIO [place] [facility] [place]: chf, Hx CAD , Afib, VISHNU, pacer, post-op bowel surgery BP: 122 / 78 HR: 103 Rhythm: Atrial fibrillation Technical Quality: Adequate MEASUREMENTS (Male / Female) Normal Values 2D ECHO LV Diastolic Diameter PLAX 5.2 cm 4.2 - 5.9 / 3.9 - 5.3 cm IVS Diastolic Thickness 1.7 cm 0.6 - 1.0 / 0.6 - 0.9 cm IVS Systolic Thickness 1.9 cm LVPW Diastolic Thickness 1.2 cm 0.6 - 1.0 / 0.6 - 0.9 cm LVPW Systolic Thickness 1.7 cm LVOT Diameter 1.9 cm LV Ejection Fraction 2D Teich 36.0 % LV Ejection Fraction MOD 4C 30.6 % LV Ejection Fraction MOD 2C 24.0 % LV Ejection Fraction 2C AL 23.4 % LA Diameter 6.1 cm Aorta at Sinotubular Diameter 2.9 cm IVC Diameter 0.9 cm M-MODE LA Ao Ratio MM 2.0 AV Cusp Separation MM 1.4 cm DOPPLER AV Peak Velocity 195.0 cm/s LVOT Peak Velocity 65.0 cm/s AV Area Cont Eq vti 1.0 cm squared AV Area Cont Eq pk 1.0 cm squared MV Peak Velocity 116.0 cm/s MV Area PHT 3.1 cm squared Mitral E to A Ratio 0.0 TV Peak Velocity 253.0 cm/s TR Peak Velocity 261.0 cm/s TR Peak Gradient 27.2 mmHg TV Peak E Velocity 58.0 cm/s PV Peak Velocity 94.0 cm/s FINDINGS Left Ventricle Moderately increased left ventricular cavity size. Severely decreased left ventricular systolic function. Left ventricular ejection fraction is estimated at 36 %. There is mid to distal anterior, septal and apical akinesis suggestive of ischemic cardiomyopathy. There is echogenic mass in the apical region of the left ventricle suggestive of possible LV thombus, further investigaation with contrast echo is suggested.Grade IV/IV diastolic dysfunction (irreversible restrictive filling pattern), severely elevated filling pressures. Right Ventricle The right ventricle is normal in size and function. Right Atrium The right atrium is normal in size. Left Atrium Severely increased left atrial size. Mitral Valve Mildly thickened mitral valve. No mitral valve stenosis. Moderate mitral valve regurgitation. Aortic Valve Moderate aortic valve calcification. Moderate aortic valve stenosis, mean gradient 5.4 mmHg, TATUM 0.99 cm squared. Trace aortic valve regurgitation. Tricuspid Valve [id number] tricuspid valve regurgitation. Pulmonic Valve [id number] pulmonary valve regurgitation. Pericardium Normal pericardium without effusion. Aorta Normal ascending aorta dimension. IVC The inferior vena cava appears normal. CONCLUSIONS Moderately increased left ventricular cavity size. Severely decreased left ventricular systolic function. Left ventricular ejection fraction is estimated at 36 %. There is mid to distal anterior, septal and apical akinesis suggestive of ischemic cardiomyopathy. There is echogenic mass in the apical region of the left ventricle suggestive of possible LV thombus, further investigaation with contrast echo is suggested..Grade IV/IV diastolic dysfunction (irreversible restrictive filling pattern), severely elevated filling pressures. Severely increased left atrial size. Moderate aortic valve calcification. Moderate aortic valve stenosis, mean gradient 5.4 mmHg, TATUM 0.99 cm squared. Trace aortic valve regurgitation. [id number]-tc-[id number] tricuspid valve regurgitation. Mildly thickened mitral valve. No mitral valve stenosis. Moderate mitral valve regurgitation. There is no pericardial effusion. Right atrial pressure is around 10 mm of mercury. Findings discussed with Romel Saleh is already on eliquis however echo with contrast is suggested. Sheila Kelly MD (Electronically Signed) Final Date: 26 May 2024 14:20 S
--- NOTE | 2024-05-24 13:09 | P.PN_ITS ---
Subjective 2 Subjective: Operative day 1 status post exploratory laparotomy bowel resection for gallstone ileus with intestinal ischemia. Patient is doing well this morning, he is hungry, some abdominal pain at the level of the incision. Has not passed gas yet and has not ambulated yet. Vitals/I&O/Wt Last Vital Signs Temp 97.9 F 05/24/24 12:00 Pulse 96 05/24/24 12:00 Resp 17 05/24/24 12:00 BP 122/86 05/24/24 12:00 Pulse Ox 94 05/24/24 12:00 O2 Del Method Room Air 05/24/24 12:00 O2 Flow Rate 8 05/24/24 01:20 05/23/24 05/24/24 05/24/24 22:59 06:59 14:59 Intake Total 2350 / 2350 Output Total 350 / 350 Balance 1999 / 1999 Weight last 48 hrs Weight 160 lb Weight 160 lb Physical Exam 2 HENMT: OTHER: NG tube is in place with bilious output GI: OTHER: Abdominal examination consistent with recent surgery abdomen soft appropriately tender surgical incisions covered with dressing. Urinary Catheter Management: Collins: Cath Placed During This Visit: yes Reason for Continuing Indwelling Catheter: Perioperative Use in Selected Surgeries Urinary Catheter Date of Insertion: 05/23/24 Urinary Catheter Time of Insertion: 23:00 Data 05/24/24 02:40 05/24/24 02:40 Micro: Microbiology 05/24/24 02:44 Blood Culture - Preliminary Blood SPECIMEN COLLECTED 05/24/24 02:40 Blood Culture - Preliminary Blood SPECIMEN COLLECTED A&P Assessment and plan (1) Gallstone ileus: (2) S/P laparotomy: Plan Overall good progression after surgery. Will keep n.p.o. until tomorrow, if by tomorrow he starts passing gas and is feeling better we might remove NG tube and decide on start clear liquid diet. Vitals are stable. White count has up trended which is expected after recent surgery. He has some mild MYRON. We appreciate management by medical team due to patient multiple comorbidities. Will start incentive spirometer today, I have discussed with nursing staff regarding ambulation and we will place some SCDs. Will plan to restart DVT prophylaxis with Lovenox tomorrow PDMP PDMP Reviewed: Not Reviewed Attestations 2 Medical Necessity Statement*: per medical team Coding Level of Care Code Acute Code for Chg Fwd Diagnoses Gallstone ileus K56.3 S/P laparotomy Z98.890
[2024-05-24 13:17] LABS: Estmated Average Glucose 128; Hemoglobin A1C 6.1 % (4.0-6.0)
[2024-05-24 13:50] LABS: Iron 19 ug/dL (59-158); Percent Saturation 7.7 % (20-50); Thyroid Stimulating Hormone 4.46 uIU/mL (0.27-4.20); Total Iron Binding Capacity 244 mcg/dl; Unsaturated Iron Binding 225 ug/dL (112-347); Vitamin B12 360 pg/mL (232-1245)
--- NOTE | 2024-05-24 14:47 | W.PM.EVENTAC ---
Event Note Event Note: Admitted overnight. Appreciated H&P.Overnight patient underwent expiratory laparotomy with resection of small bowel and primary anastomosis. Appreciate surgical recommendations. Patient has a history of CAD with CHF with an EF of 35 to 40% in past. Plan: Continue with IV fluids while monitoring for fluid overload. Currently on NS at 65 cc/h. Continue with the same. Patient is NPO. Advance diet as per surgical team. NG tube placement and management as per surgical team. Continue with empiric IV antibiotics with IV Zosyn and vancomycin. Check MRSA swab. If swab is negative will discontinue vancomycin. Follow-up blood cultures. Goal blood pressure less than 140/90 mmHg. Takes Entresto, isosorbide, digoxin at home. Digoxin levels subtherapeutic on admission. Hold off on antihypertensive for now. IV hydralazine 10 mg every 6 hours as needed for systolic blood pressure of more than 160 mmHg. Telemetry.
[2024-05-24] MEDS: piperacillin-tazobactam 3.375 GM in sodium chloride 0.9% (plus) 50 ML IV ×2 (15:56→22:56)
[2024-05-24 16:58] LABS: Glucose Point of Care 129 mg/dL (70-110)
[2024-05-24 20:27] LABS: MRSA PCR OZH (swab) NOT DETECTED (Negative)
[2024-05-24 20:39] LABS: Glucose Point of Care 111 mg/dL (70-110)
[2024-05-25 00:25] LABS: Free T4 Free Thyroxine 1.48 ng/dL (0.82-1.77); T3 Free 2.4 PG/ML (2.0-4.4)
[2024-05-25 01:25] VITALS: BP 123/80; PULSE 120; RESP 14; TEMP 36.7; O2SAT 93
[2024-05-25] MEDS: pantoprazole 40 mg SDV IVP ×2 (03:04→13:08)
[2024-05-25 05:18] LABS: Basophils % 0.2 %; Eosinophils % 0.1 %; Hematocrit 38.9 % (37-53); Lymphocytes % 5.7 %; Mean Corpuscular HGB Conc 32.1 g/dL (30-55); Mean Corpuscular Hemoglobin 29.8 pg (27-33); Mean Corpuscular Volume 92.8 fl (82-101); Mean Platelet Volume 10.2 fL (7.4-10.4); Monocytes # 0.7 10^3/uL (0.2-0.9); Neutrophils # 16.11 10^3/uL (1.8-7.7); Neutrophils % 89.6 %; Nucleated Red Blood Cells % 0 %; Platelet Count 212 10^3/cmm (157-399); Red Blood Count 4.19 10^6/uL (3.85-5.65); Red Cell Distribution Width 15.3 % (12.1-15.1); White Blood Count 17.97 10^3/uL (3.29-11.43)
[2024-05-25 05:42] VITALS: BP 127/82; PULSE 100; RESP 16; TEMP 37.1; O2SAT 93; BMI 23.8
[2024-05-25 05:44] LABS: Chol HDL Ratio 2.72 mg/dL (1.0-5.00); Cholesterol 87 mg/dL (0-200); HDL Cholesterol 32 mg/dL (60-100); LDL Cholesterol Calculated 36 mg/dL (50-129); Triglycerides 96 mg/dL (0-150); VLDL Cholestrol Calculation 19 mg/dL (0-30)
[2024-05-25 05:51] LABS: Alanine Aminotransferase 10 U/L (0-41); Albumin Level 3.2 g/dL (3.5-5.2); Alkaline Phosphatase 70 U/L (40-130); Anion Gap 16.1 (5-19); Aspartate Amino Transferase 13 U/L (0-40); Blood Urea Nitrogen 42 mg/dL (8-23); Calcium 8.7 mg/dL (8.5-10.5); Carbon Dioxide 21 mmol/L (22-29); Chloride 109 mmol/L (98-107); Creatinine Clr Calc Pharmacy 32.1872; Globulin 3.1 g/dL (1.3-4.6); Glucose 109 mg/dL (65-115); Osmolality Calculated 305 mOsm/kg (285-295); Phosphorus 2.5 mg/dL (2.5-4.5); Potassium 4.1 mmol/L (3.5-5.1); Sodium 142 mmol/L (136-145); Total Bilirubin 0.8 mg/dL (0.15-1.2); Total Protein 6.3 g/dL (6.6-8.7)
[2024-05-25 06:03] LABS: Folate Level 7.1 ng/mL (4.5-32.2)
[2024-05-25] MEDS: piperacillin-tazobactam 3.375 GM in sodium chloride 0.9% (plus) 50 ML IV ×2 (06:16→16:35)
--- NOTE | 2024-05-25 06:24 | PC.NURSE ---
THIS RN EMPTIED PTS SUCTION CANISTER AND GOT 1175 OUT. THERE WAS NO MARKINGS ON THE CANISTER MARKING WHAT WAS PREVIOUSLY CHARTED. THIS RN DID A CHART REVIEW AND DID NOT SEE ANY OUTPUT DOCUMENTED FOR THE NG. THIS RN DOCUMENTED THE TOTAL AMOUNT EMPTIED. FROM 05/24 1900 TO 05/25 0630 PT HAD 575 ML OUT.
[2024-05-25 06:40] LABS: Glucose Point of Care 130 mg/dL (70-110)
[2024-05-25 07:49] VITALS: BP 119/76; PULSE 113; RESP 17; TEMP 36.8; O2SAT 95
--- NOTE | 2024-05-25 08:02 | P.PN_ITS ---
Subjective 2 Subjective: 84-year-old male today's postoperative d ay 1 status post oratory laparotomy and bowel resection for gallstone ileus and intestinal ischemia. Patient is doing well, has passed little amount of gas but output from the NG tube was high overnight 1.2 L. No significant abdominal pain was able to ambulate yesterday. Vitals/I&O/Wt Last Vital Signs Temp 98.2 F 05/25/24 07:49 Pulse 113 H 05/25/24 07:49 Resp 17 05/25/24 07:49 BP 119/76 05/25/24 07:49 Pulse Ox 95 05/25/24 07:49 O2 Del Method Nasal Cannula 05/25/24 07:49 O2 Flow Rate 8 05/24/24 01:20 05/24/24 05/25/24 05/25/24 22:59 06:59 14:59 Intake Total 1150 / 1700 50 / 1750 Output Total 200 / 200 1975 / 2175 Balance 950 / 1500 -1925 / -425 Weight last 48 hrs Weight 161 lb Weight 160 lb Weight 160 lb Physical Exam 2 Narrative: Abdominal exam consistent with recent surgery, surgical incision healing well, abdomen is soft appropriately tender bowel sounds are decreased in all quadrants Urinary Catheter Management: Collins: Cath Placed During This Visit: yes Reason for Continuing Indwelling Catheter: Other Urinary Catheter Date of Insertion: 05/23/24 Urinary Catheter Time of Insertion: 23:00 Data 05/25/24 04:42 05/25/24 04:42 Micro: Microbiology 05/24/24 02:44 Blood Culture - Preliminary Blood NEGATIVE TO DATE 05/24/24 02:40 Blood Culture - Preliminary Blood NEGATIVE TO DATE A&P Assessment and plan (1) Gallstone ileus: (2) S/P laparotomy: Plan Patient showing adequate postoperative progress of shunting postoperative day 1. Since the NG tube output was high we will plan to give NG tube for today, continue to encourage ambulation. MRSA nasal swab on record is negative therefore I will discontinue vancomycin as planned per medical team. Will allow the patient to have some small amount of ice chips. Plan is for possible NG tube removal tomorrow and advancement to clear liquid diet if he is able to ambulate and pass some gas today. His vital signs have been stable although he does have a slight tachycardia. He is cleared from the surgical standpoint to start prophylactic Lovenox. Regarding his laboratory workup white count continues to downtrend, there has been a slight uptrend in the creatinine, may be due to dehydration and vancomycin administration. Appreciate management per medical team PDMP PDMP Reviewed: Not Reviewed Attestations 2 Medical Necessity Statement*: Per medical team Coding Level of Care Code Acute Code for Chg Fwd Diagnoses Gallstone ileus K56.3 S/P laparotomy Z98.890
[2024-05-25 11:35] VITALS: BP 121/72; PULSE 110; RESP 18; TEMP 36.5; O2SAT 96
[2024-05-25 11:36] LABS: Glucose Point of Care 128 mg/dL (70-110)
[2024-05-25] MEDS: metoprolol tartrate 1 mg/1 mL SDV 5 mL 2.5 MG IVP ×3 (13:07→19:44)
--- NOTE | 2024-05-25 13:45 | PC.SOCIAL ---
IMM updated Updated pt on IMM. No questions voiced. Provided pt a copy. Initialed, dated, & timed a copy & placed in chart.
--- NOTE | 2024-05-25 15:39 | P.PN_ITS ---
Subjective 2 Subjective: No events overnight. Today morning patient seen walking around with physical therapist. States he is feeling better. Complaining of mild abdominal pain. Overnight had around 1200 cc of drain from the NG tube. Still not passing flatus. Hemodynamically stable. Mildly tachycardic. Denies any difficulty breathing. Vitals/I&O/Wt Last Vital Signs Temp 97.7 F 05/25/24 11:35 Pulse 110 H 05/25/24 11:35 Resp 18 05/25/24 11:35 BP 121/72 05/25/24 11:35 Pulse Ox 96 05/25/24 11:35 O2 Del Method Nasal Cannula 05/25/24 11:35 O2 Flow Rate 8 05/24/24 01:20 05/25/24 05/25/24 05/25/24 06:59 14:59 22:59 Intake Total 50 / 1750 Output Total 1974 / 2174 Balance -1925 / -425 Weight last 48 hrs Weight 73.028 kg Weight 72.575 kg Weight 72.575 kg Physical Exam 2 Narrative: Constitutional: GENERAL APPEARANCE: cooperative, comfortable and appears older than stated age; not combative, not disheveled, not ill appearing and not frail appearing HENT: HEAD & SCALP: normocephalic and atraumatic; NOSE: external nose not normal EXTERNAL EAR: no external ears normal MOUTH: Normal oral and palatal mucosa present THROAT: posterior oropharynx normal Eye: PERRL, EOMI, normal conjunctiva b/l Neck: normal visual inspection, trachea midline, No anterior neck swelling, No tracheal deviation, No tracheostomy present, no submandibular swelling, Thyroid normal , cervical ROM normal Lymph: no cervical, supraclavicular LAD Resp: no use of accessory muscles, CTAB, no w/r/r Cardio: rate controlled irrgeular rate and rhythm, no m/r/g, or clicks. 2+ radial and DP pulses. GI: normoactive bowel sounds, TTP to light palpation at the surgical site. Abdominal binder in place. Non-distended, no guarding, no rigidity, + rebound tenderness, no hepatosplenomegaly. NGT in place to low intermittent suction : (-) CVA tenderness Back/Pelvis: Deferred Extremity: No clubbing, No cyanosis and No edema Neuro: AO to person, place and time. CN normal except as noted. Normal gait present. 5/5 motor strength present throughout. Normal motor muscle tone present throughout. Psych: difficult to assess given mental status Urinary Catheter Management: Collins: Cath Placed During This Visit: yes Reason for Continuing Indwelling Catheter: Other Urinary Catheter Date of Insertion: 05/23/24 Urinary Catheter Time of Insertion: 23:00 Data 05/25/24 04:42 05/25/24 04:42 Micro: Microbiology 05/24/24 02:44 Blood Culture - Preliminary Blood NEGATIVE TO DATE 05/24/24 02:40 Blood Culture - Preliminary Blood NEGATIVE TO DATE A&P Assessment and plan (1) Gallstone ileus: (2) SIRS (systemic inflammatory response syndrome): (3) S/P laparotomy: (4) Acute ischemia of small intestine: (5) Benign essential hypertension with target blood pressure below 140/90: (6) Congestive heart failure: Qualifiers: Heart failure type: unspecified Heart failure chronicity: acute on chronic Qualified Code(s): I50.9 - Heart failure, unspecified (7) Ischemic cardiomyopathy: (8) Mitral valve regurgitation: Qualifiers: Cardiac valve disease etiology: nonrheumatic Qualified Code(s): I34.0 - Nonrheumatic mitral (valve) insufficiency (9) Atrial fibrillation: Qualifiers: Atrial fibrillation type: unspecified Qualified Code(s): I48.91 - Unspecified atrial fibrillation (10) AICD (automatic cardioverter/defibrillator) present: Plan Stanislav Wu is a 84 year old man w/ multiple medical problems that include CAD, HFrEF, Afib, VISHNU, & Chronic pain who presented to the ED on 05/23/2024 w/ complaints of severe abdominal pain that began about 3pm. He was transferred to the floor, where his repeat lactic acid was 2.7,so he was given another 500cc bolus and started on 1L NS at 65cc/hr. #SIRS: Likely due to his gallstone ileus: Bowel is l s/p surgery #Gallstone ileus causing a bowel obstruction & Acute Intestinal Ischemia s/p laparotomy w/ bowel resection on 04/23. NG tube management, advancement of diet, pain management as per surgical team. Physical therapy. Continue with empiric IV antibiotics. MRSA swab negative. Discontinue vancomycin. Continue with IV Zosyn. Follow-up blood cultures. Atrial fibrillation: Tachycardic today. Digoxin level was elevated on admission. IV metoprolol 2.5 mg every 4 hours. Hold for heart rate of less than 100. Patient takes digoxin 125 mcg oral daily and metoprolol 50 mg daily at home. As of now patient is n.p.o. Recheck digoxin level today and in AM. Depending on the levels will restart IV digoxin accordingly. CKD: Baseline creatinine 1.4-1.8. Currently creatinine at baseline. Patient remains NPO. Restart gentle IV hydration with NS at 50 cc/h. Hypertension: Goal blood pressure less than 140/90 MAG. Metoprolol as above. Holding off further antihypertensive for now. Full code N.p.o. Protonix for PUD prophylaxis SCD for DVT prophylaxis. Restart medical prophylaxis when okay with the surgery team. PDMP PDMP Reviewed: Not Reviewed Attestations 2 Medical Necessity Statement*: Requires further hospitalization for management of gallstone ileus post expiratory ProcalAmine, bowel resection for intestinal ischemia in a patient with history of atrial fibrillation, ischemic cardiomyopathy Diagnoses Gallstone ileus K56.3 SIRS (systemic inflammatory response syndrome) R65.10 S/P laparotomy Z98.890 Acute ischemia of small intestine K55.019 Benign essential hypertension with target blood pressure below 140/90 I10 Acute on chronic systolic congestive heart failure I50.9 Heart failure type: unspecified Heart failure chronicity: acute on chronic Ischemic cardiomyopathy I25.5 Nonrheumatic mitral valve regurgitation I34.0 Cardiac valve disease etiology: nonrheumatic Atrial fibrillation I48.91 Atrial fibrillation type: unspecified AICD (automatic cardioverter/defibrillator) present Z95.810
[2024-05-25 16:03] VITALS: BP 123/73; PULSE 108; RESP 18; TEMP 36.6; O2SAT 96
[2024-05-25 16:39] LABS: Glucose Point of Care 112 mg/dL (70-110)
[2024-05-25 17:24] LABS: Digoxin 0.9 ng/mL (0.6-1.2)
[2024-05-25] MEDS: sodium chloride 0.9% 1,000 ML 50 ML IV (19:44)
[2024-05-25 20:46] VITALS: BP 118/76; PULSE 102; RESP 16; TEMP 36.9; O2SAT 93
[2024-05-25 21:04] LABS: Glucose Point of Care 100 mg/dL (70-110)
[2024-05-26] VITALS (8 sets, daily range): BP systolic 106–134; BP diastolic 59–82; PULSE 85–102; RESP 15–18; TEMP 36.4–37.1; O2SAT 94–98; BMI 23.8
[2024-05-26] MEDS: piperacillin-tazobactam 3.375 GM in sodium chloride 0.9% (plus) 50 ML IV ×4 (00:22→22:38)
[2024-05-26] MEDS: metoprolol tartrate 1 mg/1 mL SDV 5 mL 2.5 MG IVP ×5 (00:22→20:03)
[2024-05-26] MEDS: pantoprazole 40 mg SDV IVP ×2 (01:33→14:03)
[2024-05-26 04:55] LABS: Basophils % 0.3 %; Eosinophils # 0.2 10^3/uL (0.0-0.8); Eosinophils % 1.2 %; Hematocrit 34.4 % (37-53); Lymphocytes # 1.3 10^3/uL (0.8-4.8); Lymphocytes % 9.1 %; Mean Corpuscular HGB Conc 31.7 g/dL (30-55); Mean Corpuscular Volume 94.8 fl (82-101); Mean Platelet Volume 10.1 fL (7.4-10.4); Monocytes # 0.6 10^3/uL (0.2-0.9); Monocytes % 4.5 %; Neutrophils # 11.69 10^3/uL (1.8-7.7); Neutrophils % 84.5 %; Nucleated Red Blood Cells % 0 %; Platelet Count 200 10^3/cmm (157-399); Red Blood Count 3.63 10^6/uL (3.85-5.65); Red Cell Distribution Width 15.3 % (12.1-15.1); White Blood Count 13.85 10^3/uL (3.29-11.43)
[2024-05-26 05:13] LABS: Alanine Aminotransferase 9 U/L (0-41); Albumin Level 3.1 g/dL (3.5-5.2); Alkaline Phosphatase 65 U/L (40-130); Anion Gap 12.9 (5-19); Aspartate Amino Transferase 12 U/L (0-40); Blood Urea Nitrogen 36 mg/dL (8-23); Calcium 8.7 mg/dL (8.5-10.5); Carbon Dioxide 24 mmol/L (22-29); Chloride 113 mmol/L (98-107); Creatinine Clr Calc Pharmacy 36.4789; Globulin 2.8 g/dL (1.3-4.6); Glucose 96 mg/dL (65-115); Magnesium 2.3 mg/dL (1.7-2.3); Osmolality Calculated 310 mOsm/kg (285-295); Phosphorus 1.7 mg/dL (2.5-4.5); Potassium 3.9 mmol/L (3.5-5.1); Sodium 146 mmol/L (136-145); Total Bilirubin 0.6 mg/dL (0.15-1.2); Total Protein 5.9 g/dL (6.6-8.7)
--- NOTE | 2024-05-26 06:59 | XR_ITS ---
WS: [id number] XR chest 1V portable [id number] REASON FOR EXAM: Post op cough FINDINGS: The chest appears unchanged compared to 06/09/2023. Cardiac device of the left chest with trans left subclavian leads to the right atrium and right ventricular apex. Coronary artery stents. Mild cardiomegaly. No acute pulmonary parenchymal or pleural abnormality. XR/XR chest 1V portable [id number] IMPRESSION: Stable chest without acute abnormality.
[2024-05-26 07:30] LABS: Glucose Point of Care 94 mg/dL (70-110)
[2024-05-26] MEDS: dextrose 5%-sod chloride 0.9% 1,000 ML 50 ML IV (10:56)
--- NOTE | 2024-05-26 11:19 | P.PN_ITS ---
Subjective 2 Subjective: Postoperative day 3 status post exploratory laparotomy bowel resection for gallstone ileus with associated acute intestinal ischemia. Patient is doing well, denies having bowel movements yet but has no abdominal pain no abdominal distention, angioplasty has remained slightly high about a liter over the last 12 hours. Vitals have remained stable. Vitals/I&O/Wt Last Vital Signs Temp 97.7 F 05/26/24 08:00 Pulse 102 H 05/26/24 08:00 Resp 18 05/26/24 08:00 BP 134/82 05/26/24 08:00 Pulse Ox 98 05/26/24 08:00 O2 Del Method Room Air 05/26/24 08:00 O2 Flow Rate 8 05/24/24 01:20 05/25/24 05/26/24 05/26/24 22:59 06:59 14:59 Intake Total 50 / 100 50 / 150 50 / 50 Output Total 1050 / 1050 1400 / 2450 Balance -1000 / -950 -1350 / -2300 50 / 50 Weight last 48 hrs Weight 161 lb Weight 161 lb Physical Exam 2 GI: OTHER: Abdominal examination is benign abdomen is soft appropriately tender, there is better bowel sounds today than yesterday especially in the upper abdomen. Urinary Catheter Management: Collins: Cath Placed During This Visit: yes Reason for Continuing Indwelling Catheter: Other Urinary Catheter Date of Insertion: 05/23/24 Urinary Catheter Time of Insertion: 23:00 Data 05/26/24 04:28 05/26/24 04:28 A&P Assessment and plan (1) Gallstone ileus: (2) S/P laparotomy: Plan Patient showing good progression after ex lap and bowel resection for gallstone ileus. We proceeded to clamp the NG tube today we will measure a residual around noon. The plan is for possible removal of NG tube this afternoon and allow the patient to have clear liquid diet. We anticipate that he will be able to transition to the outpatient setting in the next 48 hours. Overall he is doing well, metabolic markers show improvement of the white count, improvement of MYRON and otherwise stable labs. I appreciate medical management as patient has multiple medical comorbidities. PDMP PDMP Reviewed: Not Reviewed Attestations 2 Medical Necessity Statement*: Per medical team Coding Level of Care Code Acute Code for [facility] Diagnoses Gallstone ileus K56.3 S/P laparotomy Z98.890
--- NOTE | 2024-05-26 12:29 | P.PN_ITS ---
Subjective 2 Subjective: No events overnight. Seen comfortably in chair. Denies any nausea, vomiting. Passing flatus. NG tube output of around 750 cc in last 24 hours states he is hungry. Abdominal pain is controlled. Has remained hemodynamically stable and afebrile. Vitals/I&O/Wt Last Vital Signs Temp 97.6 F 05/26/24 11:51 Pulse 99 05/26/24 11:51 Resp 18 05/26/24 11:51 BP 124/75 05/26/24 11:51 Pulse Ox 98 05/26/24 11:51 O2 Del Method Room Air 05/26/24 11:51 O2 Flow Rate 8 05/24/24 01:20 05/25/24 05/26/24 05/26/24 22:59 06:59 14:59 Intake Total 50 / 100 50 / 150 50 / 50 Output Total 1050 / 1050 1400 / 2450 Balance -1000 / -950 -1350 / -2300 50 / 50 Weight last 48 hrs Weight 73.028 kg Weight 73.028 kg Physical Exam 2 Narrative: Constitutional: GENERAL APPEARANCE: cooperative, comfortable and appears older than stated age; not combative, not disheveled, not ill appearing and not frail appearing HENT: HEAD & SCALP: normocephalic and atraumatic; NOSE: external nose not normal EXTERNAL EAR: no external ears normal MOUTH: Normal oral and palatal mucosa present THROAT: posterior oropharynx normal Eye: PERRL, EOMI, normal conjunctiva b/l Neck: normal visual inspection, trachea midline, No anterior neck swelling, No tracheal deviation, No tracheostomy present, no submandibular swelling, Thyroid normal , cervical ROM normal Lymph: no cervical, supraclavicular LAD Resp: no use of accessory muscles, CTAB, no w/r/r Cardio: rate controlled irrgeular rate and rhythm, no m/r/g, or clicks. 2+ radial and DP pulses. GI: normoactive bowel sounds, TTP to light palpation at the surgical site. Abdominal binder in place. Non-distended, no guarding, no rigidity, + rebound tenderness, no hepatosplenomegaly. NGT in place to low intermittent suction : (-) CVA tenderness Back/Pelvis: Deferred Extremity: No clubbing, No cyanosis and No edema Neuro: AO to person, place and time. CN normal except as noted. Normal gait present. 5/5 motor strength present throughout. Normal motor muscle tone present throughout. Psych: difficult to assess given mental status Urinary Catheter Management: Collins: Cath Placed During This Visit: yes Reason for Continuing Indwelling Catheter: Other Urinary Catheter Date of Insertion: 05/23/24 Urinary Catheter Time of Insertion: 23:00 Data 05/26/24 04:28 05/26/24 04:28 A&P Assessment and plan (1) Gallstone ileus: (2) SIRS (systemic inflammatory response syndrome): (3) S/P laparotomy: (4) Acute ischemia of small intestine: (5) Benign essential hypertension with target blood pressure below 140/90: (6) Congestive heart failure: Qualifiers: Heart failure type: unspecified Heart failure chronicity: acute on chronic Qualified Code(s): I50.9 - Heart failure, unspecified (7) Ischemic cardiomyopathy: (8) Mitral valve regurgitation: Qualifiers: Cardiac valve disease etiology: nonrheumatic Qualified Code(s): I34.0 - Nonrheumatic mitral (valve) insufficiency (9) Atrial fibrillation: Qualifiers: Atrial fibrillation type: unspecified Qualified Code(s): I48.91 - Unspecified atrial fibrillation (10) AICD (automatic cardioverter/defibrillator) present: Plan Stanislav Wu is a 84 year old man w/ multiple medical problems that include CAD, HFrEF, Afib, VISHNU, & Chronic pain who presented to the ED on 05/23/2024 w/ complaints of severe abdominal pain that began about 3pm. He was transferred to the floor, where his repeat lactic acid was 2.7,so he was given another 500cc bolus and started on 1L NS at 65cc/hr. #SIRS: Likely due to his gallstone ileus: Bowel is l s/p surgery #Gallstone ileus causing a bowel obstruction & Acute Intestinal Ischemia s/p laparotomy w/ bowel resection on 04/23. NG tube management, advancement of diet, pain management as per surgical team. Physical therapy. Continue with empiric IV antibiotics. MRSA swab negative. Discontinue vancomycin. Continue with IV Zosyn. Follow-up blood cultures. Atrial fibrillation: Tachycardic today. Digoxin level was elevated on admission. IV metoprolol 2.5 mg every 4 hours. Hold for heart rate of less than 100. Patient takes digoxin 125 mcg oral daily and metoprolol 50 mg daily at home. As of now patient is n.p.o. Recheck digoxin level today and in AM. Depending on the levels will restart IV digoxin accordingly. CKD: Baseline creatinine 1.4-1.8. Currently creatinine at baseline. Patient remains NPO. Restart gentle IV hydration with NS at 50 cc/h. Hypertension: Goal blood pressure less than 140/90 mmhg. Metoprolol as above. Holding off further antihypertensive for now. Plan for the day: NG tube management and diet advancement as per surgical team. Developing mild hypernatremia today. Most likely in setting of dehydration. Switch fluid to D5 NS at 50 cc/h. Watch for fluid overload. Continue with IV metoprolol 2.5 mg every 4 hours. Appreciate digoxin levels. Therapeutic now. Continue with IV Zosyn for now. Leukocytosis trending down. Follow blood cultures. Full code N.p.o. Protonix for PUD prophylaxis SCD for DVT prophylaxis. Restart medical prophylaxis when okay with the surgery team. PDMP PDMP Reviewed: Not Reviewed Attestations 2 Medical Necessity Statement*: Requires further hospitalization for management of gallstone ileus, post expiratory laparotomy for ischemic bowel while diet is advanced in a patient with history of congestive heart failure, cardiomyopathy, A-fib, CKD Diagnoses Gallstone ileus K56.3 SIRS (systemic inflammatory response syndrome) R65.10 S/P laparotomy Z98.890 Acute ischemia of small intestine K55.019 Benign essential hypertension with target blood pressure below 140/90 I10 Acute on chronic systolic congestive heart failure I50.9 Heart failure type: unspecified Heart failure chronicity: acute on chronic Ischemic cardiomyopathy I25.5 Nonrheumatic mitral valve regurgitation I34.0 Cardiac valve disease etiology: nonrheumatic Atrial fibrillation I48.91 Atrial fibrillation type: unspecified AICD (automatic cardioverter/defibrillator) present Z95.810
--- NOTE | 2024-05-26 13:19 | P.MISC_ITS ---
Miscellaneous Note Purpose of Documentation: Update on patient care Note: Patient evaluated this afternoon, doing well is out of bed to chair, has not been passing gas yet but the bowel sounds have improved significantly. No residual from the NG tube over the last 6 hours. I proceeded to remove NG tube and will allow the patient to have clears. He will continue to ambulate and if by tomorrow he is tolerating clears we will plan to advance to full liquid di et.He is cleared to have his p.o. medication
--- NOTE | 2024-05-26 14:15 | USCV_ITS ---
Stanislav Wu Age: 84 Gender: M : 1940 Exam Date: 05/26/2024 15:25 Ordering Phys: Agustin Rodgers MD Technologist: Exam [place] [facility] [place]: ? lv thrombus BP: 130 / 80 HR: Rhythm: Sinus Technical Quality: Adequate MEASUREMENTS (Male / Female) Normal Values 2D ECHO LV Ejection Fraction MOD 4C 41.7 % LV Ejection Fraction MOD 2C 42.1 % LV Ejection Fraction 2C AL 42.5 % FINDINGS Left Ventricle Moderately increased left ventricular cavity size. Moderately decreased left ventricular systolic function. Left ventricular ejection fraction is estimated at 35-40 %. There is mid to distal anterior, septal and apical wall severe hypokinesis consistent with ischemic cardiomyopathy, there is no thrombus seen based upon this limited echo with contrast in the left ventricle as suggested over previous echo without contrast. Right Ventricle Right Atrium Left Atrium Mitral Valve Aortic Valve Tricuspid Valve Pulmonic Valve Pericardium Aorta IVC CONCLUSIONS limited echo with cotrast to rule out LV thrombus. Moderately increased left ventricular cavity size. Moderately decreased left ventricular systolic function. Left ventricular ejection fraction is estimated at 35-40 %. There is mid to distal anterior, septal and apical wall severe hypokinesis consistent with ischemic cardiomyopathy, there is no thrombus seen based upon this limited echo with contrast in the left ventricle as suggested over previous echo without contrast. Sheila Kelly MD (Electronically Signed) Final Date: 26 May 2024 21:20 S
[2024-05-26] MEDS: perflutren protein-a microsphr 0.22 mg/mL SDV 3 mL IV (15:41)
[2024-05-26] MEDS: heparin drip 25,000 UNIT/500 ML PREMIX 21 UNIT IV (16:03)
--- NOTE | 2024-05-26 16:25 | PC.NURSE ---
pts actual weight is 76.04kg, mar is showing dosing wgt as 73.02. pt was weighed immediately prior to starting heparin gtt. heparin gtt was started per actual weight of 76.04kg which is currently 21mls/hr. confirmed with 2nd rn.
[2024-05-26 16:48] LABS: Glucose Point of Care 112 mg/dL (70-110)
[2024-05-26 20:54] LABS: Glucose Point of Care 108 mg/dL (70-110)
[2024-05-26 22:03] LABS: Glucose Point of Care 139 mg/dL (70-110)
[2024-05-26 22:32] LABS: Partial Thromboplastin Time 54.6 SECONDS (23.9-36.7)
[2024-05-27] VITALS (10 sets, daily range): BP systolic 105–113; BP diastolic 57–73; PULSE 62–85; RESP 15–18; TEMP 36.4–36.8; O2SAT 94–98; BMI 24.6
[2024-05-27] MEDS: metoprolol tartrate 1 mg/1 mL SDV 5 mL 2.5 MG IVP ×3 (01:15→09:36)
[2024-05-27] MEDS: pantoprazole 40 mg SDV IVP ×2 (01:15→12:55)
[2024-05-27 04:36] LABS: Basophils # 0.1 10^3/uL (0.0-0.1); Basophils % 0.7 %; Eosinophils # 0.9 10^3/uL (0.0-0.8); Eosinophils % 8.5 %; Hematocrit 32.9 % (37-53); Lymphocytes # 1.3 10^3/uL (0.8-4.8); Lymphocytes % 12.8 %; Mean Corpuscular HGB Conc 31.3 g/dL (30-55); Mean Corpuscular Hemoglobin 30.3 pg (27-33); Mean Corpuscular Volume 96.8 fl (82-101); Mean Platelet Volume 10.1 fL (7.4-10.4); Monocytes # 0.6 10^3/uL (0.2-0.9); Monocytes % 6.1 %; Neutrophils # 7.28 10^3/uL (1.8-7.7); Nucleated Red Blood Cells % 0 %; Platelet Count 176 10^3/cmm (157-399); Red Cell Distribution Width 15.2 % (12.1-15.1); White Blood Count 10.24 10^3/uL (3.29-11.43)
[2024-05-27 04:51] LABS: Magnesium 2.3 mg/dL (1.7-2.3)
[2024-05-27 04:55] LABS: Partial Thromboplastin Time 85.6 SECONDS (23.9-36.7)
[2024-05-27 05:07] LABS: Alanine Aminotransferase 9 U/L (0-41); Albumin Level 3.1 g/dL (3.5-5.2); Alkaline Phosphatase 66 U/L (40-130); Anion Gap 12.5 (5-19); Aspartate Amino Transferase 14 U/L (0-40); Blood Urea Nitrogen 31 mg/dL (8-23); Calcium 8.1 mg/dL (8.5-10.5); Carbon Dioxide 22 mmol/L (22-29); Chloride 111 mmol/L (98-107); Creatinine Clr Calc Pharmacy 39.7083; Globulin 2.1 g/dL (1.3-4.6); Glucose 108 mg/dL (65-115); Osmolality Calculated 301 mOsm/kg (285-295); Potassium 3.5 mmol/L (3.5-5.1); Sodium 142 mmol/L (136-145); Total Bilirubin 0.7 mg/dL (0.15-1.2); Total Protein 5.2 g/dL (6.6-8.7)
[2024-05-27] MEDS: piperacillin-tazobactam 3.375 GM in sodium chloride 0.9% (plus) 50 ML IV ×2 (06:13→15:41)
[2024-05-27] MEDS: dextrose 5%-sod chloride 0.9% 1,000 ML 50 ML IV (06:13)
[2024-05-27 07:04] LABS: Glucose Point of Care 107 mg/dL (70-110)
--- NOTE | 2024-05-27 09:30 | P.PN_ITS ---
Subjective 2 Subjective: Today's postoperative day 4, he has been doing well, tolerated clear liquid diet over the last 24 hours. No nausea or vomit but he is yet to pass gas or stool. Vitals/I&O/Wt Last Vital Signs Temp 97.7 F 05/27/24 07:35 Pulse 74 05/27/24 07:35 Resp 16 05/27/24 07:35 BP 108/69 05/27/24 07:35 Pulse Ox 95 05/27/24 07:35 O2 Del Method Room Air 05/27/24 07:35 O2 Flow Rate 8 05/24/24 01:20 05/26/24 05/27/24 05/27/24 22:59 06:59 14:59 Intake Total 1787.55 / 1837.55 1810.567 / 3648.117 Output Total 350 / 350 Balance 1437.55 / 1487.55 1810.567 / 3298.117 Weight last 48 hrs Weight 167 lb Weight 167 lb 4.8 oz Weight 161 lb Physical Exam 2 Narrative: Abdominal examination is benign, abdomen is mildly distended abdomen is soft minimally tender surgical incision is healing well and there is active bowel sounds Urinary Catheter Management: Collins: Cath Placed During This Visit: yes, but has since been removed by the nurse Reason for Continuing Indwelling Catheter: Decision to DC Catheter Urinary Catheter Date of Insertion: 05/23/24 Urinary Catheter Time of Insertion: 23:00 Date Urinary Catheter Removed: 05/26/24 Time Urinary Catheter Discontinued: 10:30 Data 05/27/24 04:20 05/27/24 04:20 A&P Assessment and plan (1) S/P laparotomy: (2) Gallstone ileus: Plan He is showing a very good progression from the surgical standpoint there is active bowel sounds and he is tolerating the clear liquid diet but has not had any gas or bowel movement yet, I will like to wait until he passes some flatus before advancing to full liquid diet and from there he will be advance as tolerated. Patient shows understanding we will continue ambulation today. The patient is consistently ambulating today and is able to pass flatus we will advance to full liquid diet and remove Collins catheter. I appreciate management per medical team. PDMP PDMP Reviewed: Not Reviewed Attestations 2 Medical Necessity Statement*: Per medical team Coding Level of Care Code Acute Code for Chg Fwd Diagnoses S/P laparotomy Z98.890 Gallstone ileus K56.3
[2024-05-27] MEDS: sennosides 8.6 mg Tablet 17.2 MG PO (09:37)
--- NOTE | 2024-05-27 10:26 | P.MISC_ITS ---
Miscellaneous Note Purpose of Documentation: Update on patient care Note: Patient had a large BM and is passing gas. -Will advance to full liquid diet -Plan for GI SOft tomorrow prior to disc harge
[2024-05-27 12:25] LABS: Partial Thromboplastin Time 38.2 SECONDS (23.9-36.7)
[2024-05-27] MEDS: metoprolol tartrate 50 mg Tablet 25 MG PO ×2 (12:55→21:11)
--- NOTE | 2024-05-27 13:16 | PC.SOCIAL ---
IMM Updated Updated pt on IMM. No questions voiced. Provided pt a copy. Initialed, dated, & timed a copy & placed in chart.
[2024-05-27 14:13] LABS: Glucose Point of Care 90 mg/dL (70-110)
--- NOTE | 2024-05-27 14:22 | P.PN_ITS ---
Subjective 2 Subjective: No acute events overnight. Patient has been passing flatus. Tolerated clear liquid diet. Advance to full liquid diet today and he had a bowel movement later in the day. Patient otherwise denies any abdominal pain. Eager to eat more. Vitals/I&O/Wt Last Vital Signs Temp 98.2 F 05/27/24 11:05 Pulse 69 05/27/24 11:05 Resp 15 05/27/24 11:05 BP 105/72 05/27/24 11:05 Pulse Ox 95 05/27/24 11:05 O2 Del Method Room Air 05/27/24 11:05 O2 Flow Rate 8 05/24/24 01:20 05/26/24 05/27/24 05/27/24 22:59 06:59 14:59 Intake Total 1787.55 / 1837.55 1810.567 / 3648.117 240 / 240 Output Total 350 / 350 Balance 1437.55 / 1487.55 1810.567 / 3298.117 240 / 240 Weight last 48 hrs Weight 75.75 kg Weight 75.886 kg Weight 73.028 kg Physical Exam 2 Narrative: Constitutional: GENERAL APPEARANCE: cooperative, comfortable and appears older than stated age; not combative, not disheveled, not ill appearing and not frail appearing HENT: HEAD & SCALP: normocephalic and atraumatic; NOSE: external nose not normal EXTERNAL EAR: no external ears normal MOUTH: Normal oral and palatal mucosa present THROAT: posterior oropharynx normal Eye: PERRL, EOMI, normal conjunctiva b/l Neck: normal visual inspection, trachea midline, No anterior neck swelling, No tracheal deviation, No tracheostomy present, no submandibular swelling, Thyroid normal , cervical ROM normal Lymph: no cervical, supraclavicular LAD Resp: no use of accessory muscles, CTAB, no w/r/r Cardio: rate controlled irrgeular rate and rhythm, no m/r/g, or clicks. 2+ radial and DP pulses. GI: normoactive bowel sounds, TTP to light palpation at the surgical site. Abdominal binder in place. Non-distended, no guarding, no rigidity, + rebound tenderness, no hepatosplenomegaly. NGT in place to low intermittent suction : (-) CVA tenderness Back/Pelvis: Deferred Extremity: No clubbing, No cyanosis and No edema Neuro: AO to person, place and time. CN normal except as noted. Normal gait present. 5/5 motor strength present throughout. Normal motor muscle tone present throughout. Psych: difficult to assess given mental status Urinary Catheter Management: Collins: Cath Placed During This Visit: yes, but has since been removed by the nurse Reason for Continuing Indwelling Catheter: Decision to DC Catheter Urinary Catheter Date of Insertion: 05/23/24 Urinary Catheter Time of Insertion: 23:00 Date Urinary Catheter Removed: 05/26/24 Time Urinary Catheter Discontinued: 10:30 Data 05/27/24 04:20 05/27/24 04:20 A&P Assessment and plan (1) Gallstone ileus: (2) SIRS (systemic inflammatory response syndrome): (3) S/P laparotomy: (4) Acute ischemia of small intestine: (5) Benign essential hypertension with target blood pressure below 140/90: (6) Congestive heart failure: Qualifiers: Heart failure type: unspecified Heart failure chronicity: acute on chronic Qualified Code(s): I50.9 - Heart failure, unspecified (7) Ischemic cardiomyopathy: (8) Mitral valve regurgitation: Qualifiers: Cardiac valve disease etiology: nonrheumatic Qualified Code(s): I34.0 - Nonrheumatic mitral (valve) insufficiency (9) Atrial fibrillation: Qualifiers: Atrial fibrillation type: unspecified Qualified Code(s): I48.91 - Unspecified atrial fibrillation (10) AICD (automatic cardioverter/defibrillator) present: Plan Stanislav Wu is a 84 year old man w/ multiple medical problems that include CAD, HFrEF, Afib, VISHNU, & Chronic pain who presented to the ED on 05/23/2024 w/ complaints of severe abdominal pain that began about 3pm. He was transferred to the floor, where his repeat lactic acid was 2.7,so he was given another 500cc bolus and started on 1L NS at 65cc/hr. #SIRS: Likely due to his gallstone ileus: Bowel is l s/p surgery #Gallstone ileus causing a bowel obstruction & Acute Intestinal Ischemia s/p laparotomy w/ bowel resection on 04/23. NG tube management, advancement of diet, pain management as per surgical team. Physical therapy. Continue with empiric IV antibiotics. MRSA swab negative. Discontinue vancomycin. Continue with IV Zosyn. Follow-up blood cultures. Atrial fibrillation: Tachycardic today. Digoxin level was elevated on admission. IV metoprolol 2.5 mg every 4 hours. Hold for heart rate of less than 100. Patient takes digoxin 125 mcg oral daily and metoprolol 50 mg daily at home. As of now patient is n.p.o. Recheck digoxin level today and in AM. Depending on the levels will restart IV digoxin accordingly. CKD: Baseline creatinine 1.4-1.8. Currently creatinine at baseline. Patient remains NPO. Restart gentle IV hydration with NS at 50 cc/h. Hypertension: Goal blood pressure less than 140/90 mmhg. Metoprolol as above. Holding off further antihypertensive for now. Plan for the day: Advance diet as per surgical team. Tolerating full liquid diet. Continue to ambulate. Appreciate echocardiogram results showing EF of 35%. Concerns for LV thrombus though ruled out on repeat echo with contrast. Patient tolerating oral diet now. Restart home oral medications including Eliquis 5 mg twice daily. Stop heparin drip. Restart oral digoxin 125 mcg daily, metoprolol at 25 mg twice daily. Holding off on spironolactone, Entresto, Plavix and statin for now. Stop IV fluids. Continue with IV antibiotics for now. Leukocytosis have resolved. Plan to continue antibiotics for overall 5 days postoperatively. Full code Protonix for PUD prophylaxis Eliquis will be sufficient for DVT prophylaxis PDMP PDMP Reviewed: Not Reviewed Attestations 2 Medical Necessity Statement*: Requires further hospitalization for postoperative care in a patient admitted with gallstone ileus post laparotomy, bowel resection in setting of bowel ischemia in a patient with baseline history of ischemic cardiomyopathy Diagnoses Gallstone ileus K56.3 SIRS (systemic inflammatory response syndrome) R65.10 S/P laparotomy Z98.890 Acute ischemia of small intestine K55.019 Benign essential hypertension with target blood pressure below 140/90 I10 Acute on chronic systolic congestive heart failure I50.9 Heart failure type: unspecified Heart failure chronicity: acute on chronic Ischemic cardiomyopathy I25.5 Nonrheumatic mitral valve regurgitation I34.0 Cardiac valve disease etiology: nonrheumatic Atrial fibrillation I48.91 Atrial fibrillation type: unspecified AICD (automatic cardioverter/defibrillator) present Z95.810
[2024-05-27 17:17] LABS: Glucose Point of Care 80 mg/dL (70-110)
[2024-05-27] MEDS: apixaban 5 mg Tablet PO (17:49)
[2024-05-27 20:50] LABS: Glucose Point of Care 122 mg/dL (70-110)
[2024-05-28] VITALS (8 sets, daily range): BP systolic 123–135; BP diastolic 72–78; PULSE 66–101; RESP 15–17; TEMP 36.4–36.7; O2SAT 95–97
[2024-05-28] MEDS: pantoprazole 40 mg SDV IVP (01:13)
[2024-05-28] MEDS: piperacillin-tazobactam 3.375 GM in sodium chloride 0.9% (plus) 50 ML IV ×2 (01:13→08:25)
[2024-05-28 03:20] LABS: Glucose Point of Care 119 mg/dL (70-110)
[2024-05-28 05:10] LABS: Glucose Point of Care 106 mg/dL (70-110)
[2024-05-28] MEDS: sennosides 8.6 mg Tablet 17.2 MG PO (08:27)
[2024-05-28] MEDS: digoxin 125 mcg Tablet PO (08:27)
[2024-05-28] MEDS: metoprolol tartrate 50 mg Tablet 25 MG PO (08:28)
[2024-05-28] MEDS: apixaban 5 mg Tablet PO (08:28)
[2024-05-28 09:25] LABS: Glucose Point of Care 163 mg/dL (70-110)
--- NOTE | 2024-05-28 09:30 | P.PN_ITS ---
Subjective 2 Subjective: 84-year-old male who is postoperative da y 5 status post exploratory laparotomy with bowel resection for gallstone ileus with associated intestinal ischemia. Patient is doing very well tolerated diet has had multiple bowel movements, no abdominal pain, normal vital signs. Vitals/I&O/Wt Last Vital Signs Temp 97.7 F 05/28/24 07:16 Pulse 90 05/28/24 08:27 Resp 17 05/28/24 07:16 BP 135/77 05/28/24 07:16 Pulse Ox 96 05/28/24 07:16 O2 Del Method Room Air 05/28/24 07:16 O2 Flow Rate 8 05/24/24 01:20 05/27/24 05/28/24 05/28/24 22:59 06:59 14:59 Intake Total 290 / 820 1050 / 1870 240 / 240 Balance 290 / 820 1050 / 1870 240 / 240 Weight last 48 hrs Weight 176 lb 14.4 oz Weight 167 lb Weight 167 lb 4.8 oz Physical Exam 2 GI: OTHER: Abdomen soft nontender nondistended. Urinary Catheter Management: Collins: Cath Placed During This Visit: yes, but has since been removed by the nurse Reason for Continuing Indwelling Catheter: Decision to DC Catheter Urinary Catheter Date of Insertion: 05/23/24 Urinary Catheter Time of Insertion: 23:00 Date Urinary Catheter Removed: 05/26/24 Time Urinary Catheter Discontinued: 10:30 Data 05/27/24 04:20 05/27/24 04:20 A&P Assessment and plan (1) Gallstone ileus: (2) S/P laparotomy: Plan Excellent progression from the surgical standpoint, minimal abdominal pain. Patient has been advanced to GI soft diet. He can be discharged on GI soft diet and advance to regular as tolerated in the outpatient setting. Follow-up with general surgery will be in 2 weeks. All other management per medical team. Of note, pathology results have been reviewed and are concurrent with intraoperative findings PDMP PDMP Reviewed: Not Reviewed Attestations 2 Medical Necessity Statement*: Per medical team Coding Level of Care Code Acute Code for Chg Fwd Diagnoses Gallstone ileus K56.3 S/P laparotomy Z98.890
--- NOTE | 2024-05-28 11:02 | PM.DCS ---
Discharge Providers Date of Admission: 05/23/24 22:51 Date of Discharge: May 28, 2024 Attending Provider at Admission: Clifton Au MD Attending Provider at Discharge: Clifton Au MD Consults: Surgery: Dr. Malcolm Saenz Primary Care Provider: Freddie Trimble MD Diagnoses at Discharge Discharge Diagnosis (1) Gallstone ileus: Status: Acute (2) S/P laparotomy: Status: Acute Reason for Visit Reason for Visit: ABD Pain\V Brief History: History as per HPI: Although the patient was ANO x 3 at the time that he was seen postop, the patient was a poor historian & poor hearing without his hearing aids Stanislav Wu is a 84 year old man w/ multiple medical problems that include CAD, HFrEF, Afib, VISHNU, & Chronic pain who presented to the ED on 05/23/2024 w/ complaints of severe abdominal pain that began about 3pm. He states that he vomitted 8 times. He denies dysuria, hematuria. There is quite difficult to get other questions answered without him repeating that he had abdominal pain and vomited about 8 times. In the ED vital signs were significant for a RR of 20 and elevated BP as high as 154/113 mmHg. His labs are significant for leukocytosis of 16 and a likely CKD of 1.6. The patient's CT abdomen pelvis was significant for gallstone ileus causing bowel obstruction. THe patient was gsiven 1L NS bolus, and General surgery was consulted from the ED, the patient underwent an emergent laparotomy with bowel resection for intestinal ischemia. Post-op, I spoke with the Surgeon who made his recommendations. He was transferred to the floor, where his repeat lactic acid was 2.7,so he was given another 500cc bolus and started on 1L NS at 65cc/hr. Hospital Course Hospital Course Patient was admitted to the hospital for further evaluation and management postoperatively for gallstone ileus requiring expiratory laparotomy with bowel resection for mesenteric ischemia. He was started on broad-spectrum antibiotics. He responded well to the treatment and has oral diet was gradually advanced. He is tolerating GI soft diet well for now. Has had multiple bowel movements. His hospitalization stay was otherwise unremarkable. Echocardiogram was done which showed an EF 36% grade 4 diastolic dysfunction, moderate TR, moderate , moderate TR. Regional wall motion normality with akinesis of septum and apical LV. Concern for LV thrombus. LV thrombus was ruled out with limited echocardiogram with contrast. He has been discharged in hemodynamically stable condition on oral antibiotics for 5 more days. Due to limited oral intake for now his Lasix has been made as needed. He is to check his weight daily in the morning and if his weight increases by 3 pounds he is to take a dose of Lasix. He is to check his blood pressure daily at home and maintain a blood pressure diary. His home dose of Imdur for now has been withheld. Goal blood pressures are between 100 systolic to 140 systolics. Discharge planning was discussed in detail with the patient and he verbalized understanding. He is to follow-up with his primary care provider and surgical team in 2 weeks. Physical Exam Narrative: Constitutional: GENERAL APPEARANCE: cooperative, comfortable and appears older than stated age; not combative, not disheveled, not ill appearing and not frail appearing HENT: HEAD & SCALP: normocephalic and atraumatic; NOSE: external nose not normal EXTERNAL EAR: no external ears normal MOUTH: Normal oral and palatal mucosa present THROAT: posterior oropharynx normal Eye: PERRL, EOMI, normal conjunctiva b/l Neck: normal visual inspection, trachea midline, No anterior neck swelling, No tracheal deviation, No tracheostomy present, no submandibular swelling, Thyroid normal , cervical ROM normal Lymph: no cervical, supraclavicular LAD Resp: no use of accessory muscles, CTAB, no w/r/r Cardio: rate controlled irrgeular rate and rhythm, no m/r/g, or clicks. 2+ radial and DP pulses. GI: normoactive bowel sounds, TTP to light palpation at the surgical site. Abdominal binder in place. Non-distended, no guarding, no rigidity, + rebound tenderness, no hepatosplenomegaly. NGT in place to low intermittent suction : (-) CVA tenderness Back/Pelvis: Deferred Extremity: No clubbing, No cyanosis and No edema Neuro: AO to person, place and time. CN normal except as noted. Normal gait present. 5/5 motor strength present throughout. Normal motor muscle tone present throughout. Psych: difficult to assess given mental status Urinary Catheter Management: Collins: Cath Placed During This Visit: yes, but has since been removed by the nurse Reason for Continuing Indwelling Catheter: Decision to DC Catheter Urinary Catheter Date of Insertion: 05/23/24 Urinary Catheter Time of Insertion: 23:00 Date Urinary Catheter Removed: 05/26/24 Time Urinary Catheter Discontinued: 10:30 Discharge Data Studies Completed and Pending Completed Studies During Hospitalization Category Date Time Status CT abdomen pelvis w con* [id number] Stat Cat Scan 05/23/24 19:28 Completed CXRP [XR chest 1V portable [id number]] Routine Exams 05/26/24 06:59 Completed Pathology: Surgical [PTH] Routine Pth 05/23/24 23:58 Completed CV. echo complete* [id number] Routine Ultrasound 05/24/24 12:42 Completed US echo limited with contrast [CV. echo lmt w/w contras Ultrasound 05/26/24 14:15 Completed [id number]] Routine Pending at discharge Category Date Time Status Blood Culture Stat Lab 05/23/24 21:24 Results Urinalysis Routine Lab 05/24/24 12:41 Ordered Radiology Impressions Abdomen/Pelvis CT 05/23/24 19:28 IMPRESSION: 1. Findings favored to represent gallstone ileus. A focal dense spherical object, measuring up to 2.5 cm in diameter, is located within a loop of small bowel (axial series 3, image 41; coronal series 5, image 36; sagittal series 6, image 43). This location corresponds with a transition point between distally decompressed small bowel and proximally fluid-distended bowel up to 2.6 cm. This object is favored to represent a gallstone which passed into the small intestine via a fistulous connection with the gallbladder. On prior CT abdomen/pelvis 06/09/2023, a 2.6 cm gallstone was present within the then mildly enlarged gallbladder. Common bile duct at that time measured up to 1.0 cm in diameter. 2. Focal contained air and fluid located at the expected area of the gallbladder bed adjacent to the proximal duodenum. 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 No distinct evidence of extraluminal free air to suggest an uncontained perforation. 3. Multiple loops of small bowel proximal to the migrated gallstone demonstrate mild bowel wall thickening with moderate surrounding edema. These findings are suggestive early or partial small bowel obstruction. 4. Small amounts of free fluid tracking along the liver, along the right paracolic gutter, and into the pelvis. 5. Mild intrahepatic and extrahepatic biliary ductal dilation. Common bile duct measures up to 1.0 cm in diameter. No distinct radiopaque filling defect within the bile ducts on CT. Occult choledocholithiasis is not excluded. COMMENTS: Consistent with the [employer]'s Incidental Findings Committee white paper (J Am Roshni Radiol 2018): Any incidental renal lesion less than 1 cm or classified as too small to characterize, or any incidental cystic renal lesion characterized as simple-appearing, is likely benign. No follow-up imaging is recommended for these lesions per consensus recommendations based on imaging criteria. ADDENDUM: 05/23/24 2139 ADDENDUM: THIS REPORT CONTAINS FINDINGS THAT MAY BE CRITICAL TO PATIENT CARE. The findings were verbally communicated via telephone conference with Dr Bertrand at 9:26 PM CDT on 05/23/2024. The findings were acknowledged and understood. Chest X-Ray 05/26/24 06:59 IMPRESSION: Stable chest without acute abnormality. Limited Echo contrast: CONCLUSIONS limited echo with cotrast to rule out LV thrombus. Moderately increased left ventricular cavity size. Moderately decreased left ventricular systolic function. Left ventricular ejection fraction is estimated at 35-40 %. There is mid to distal anterior, septal and apical wall severe hypokinesis consistent with ischemic cardiomyopathy, there is no thrombus seen based upon this limited echo with contrast in the left ventricle as suggested over previous echo without contrast. Sheila Kelly MD (Electronically Signed) Final Date: 26 May 2024 Echocardiogram CONCLUSIONS Moderately increased left ventricular cavity size. Severely decreased left ventricular systolic function. Left ventricular ejection fraction is estimated at 36 %. There is mid to distal anterior, septal and apical akinesis suggestive of ischemic cardiomyopathy. There is echogenic mass in the apical region of the left ventricle suggestive of possible LV thombus, further investigaation with contrast echo is suggested..Grade IV/IV diastolic dysfunction (irreversible restrictive filling pattern), severely elevated filling pressures. Severely increased left atrial size. Moderate aortic valve calcification. Moderate aortic valve stenosis, mean gradient 5.4 mmHg, TATUM 0.99 cm squared. Trace aortic valve regurgitation. Vori-pl-lrvdpros tricuspid valve regurgitation. Mildly thickened mitral valve. No mitral valve stenosis. Moderate mitral valve regurgitation. There is no pericardial effusion. Right atrial pressure is around 10 mm of mercury. Findings discussed with Romel Saleh is already on eliquis however echo with contrast is suggested. Sheila Kelly MD (Electronically Signed) Final Date: 26 May 2024 Laboratory Results WBC 10.24 10^3/uL (3.29-11.43) 05/27/24 04:20 RBC 3.40 10^6/uL (3.85-5.65) L 05/27/24 04:20 Hgb 10.30 g/dL (11.27-16.99) L 05/27/24 04:20 Hct 32.9 % (37-53) L 05/27/24 04:20 MCV 96.8 fl (82-101) 05/27/24 04:20 MCH 30.3 pg (27-33) 05/27/24 04:20 MCHC 31.3 g/dL (30-55) 05/27/24 04:20 RDW 15.2 % (12.1-15.1) H 05/27/24 04:20 Plt Count 176 10^3/cmm (157-399) 05/27/24 04:20 MPV 10.1 fL (7.4-10.4) 05/27/24 04:20 Neut % (Auto) 71.0 % 05/27/24 04:20 Lymph % (Auto) 12.8 % 05/27/24 04:20 Faulk % (Auto) 6.1 % 05/27/24 04:20 Eos % (Auto) 8.5 % 05/27/24 04:20 Baso % (Auto) 0.7 % 05/27/24 04:20 Neut # (Auto) 7.28 10^3/uL (1.8-7.7) 05/27/24 04:20 Lymph # (Auto) 1.3 10^3/uL (0.8-4.8) 05/27/24 04:20 Faulk # (Auto) 0.6 10^3/uL (0.2-0.9) 05/27/24 04:20 Eos # (Auto) 0.9 10^3/uL (0.0-0.8) H 05/27/24 04:20 Baso # (Auto) 0.1 10^3/uL (0.0-0.1) 05/27/24 04:20 Nucleated RBC % (auto) 0 % 05/27/24 04:20 Nucleated RBCs # 0.0 /100WBC 05/27/24 04:20 PT 18.00 SECONDS (12.1-14.9) H 05/23/24 19:32 INR 1.39 (0.8-1.2) H 05/23/24 19:32 APTT 38.2 SECONDS (23.9-36.7) H D 05/27/24 11:43 Sodium 142 mmol/L (136-145) 05/27/24 04:20 Potassium 3.5 mmol/L (3.5-5.1) 05/27/24 04:20 Chloride 111 mmol/L (98-107) H 05/27/24 04:20 Carbon Dioxide 22 mmol/L (22-29) 05/27/24 04:20 Anion Gap 12.5 (5-19) 05/27/24 04:20 BUN 31 mg/dL (8-23) H 05/27/24 04:20 Creatinine 1.4 mg/dL (0.7-1.2) H 05/27/24 04:20 GFR Calculation Not Reportable 05/27/24 04:20 Glucose 108 mg/dL (65-115) 05/27/24 04:20 POC Glucose 163 mg/dL (70-110) H 05/28/24 09:21 Estimat Average Glucose 128 05/24/24 02:40 Hemoglobin A1c 6.1 % (4.0-6.0) H 05/24/24 02:40 Calculated Osmolality 301 mOsm/kg (285-295) H 05/27/24 04:20 Lactic Acid 2.3 mmol/L (0.5-2.2) H 05/24/24 02:40 Lactic Acid (Sepsis) 1.9 mmol/L (0.5-2.2) 05/24/24 05:43 Calcium 8.1 mg/dL (8.5-10.5) L 05/27/24 04:20 Phosphorus 1.7 mg/dL (2.5-4.5) L 05/26/24 04:28 Magnesium 2.3 mg/dL (1.7-2.3) 05/27/24 04:20 Iron 19 ug/dL (59-158) L 05/24/24 02:40 TIBC 244 mcg/dl 05/24/24 02:40 % Saturation 7.7 % (20-50) L 05/24/24 02:40 Unsat Iron Binding 225 ug/dL (112-347) 05/24/24 02:40 Total Bilirubin 0.7 mg/dL (0.15-1.2) 05/27/24 04:20 AST 14 U/L (0-40) 05/27/24 04:20 ALT 9 U/L (0-41) 05/27/24 04:20 Alkaline Phosphatase 66 U/L (40-130) 05/27/24 04:20 Total Protein 5.2 g/dL (6.6-8.7) L 05/27/24 04:20 Albumin 3.1 g/dL (3.5-5.2) L 05/27/24 04:20 Globulin 2.1 g/dL (1.3-4.6) 05/27/24 04:20 Triglycerides 96 mg/dL (0-150) 05/25/24 04:42 Cholesterol 87 mg/dL (0-200) 05/25/24 04:42 LDL Cholesterol, Calc 36 mg/dL (50-129) L 05/25/24 04:42 Total VLDL Cholesterol 19 mg/dL (0-30) 05/25/24 04:42 HDL Cholesterol 32 mg/dL (60-100) L 05/25/24 04:42 Cholesterol/HDL Ratio 2.72 mg/dL (1.0-5.00) 05/25/24 04:42 Lipase 59 U/L (13-60) 05/23/24 19:32 Vitamin B12 360 pg/mL (232-1245) 05/24/24 02:40 Folate 7.1 ng/mL (4.5-32.2) 05/25/24 04:42 TSH 4.46 uIU/mL (0.27-4.20) H 05/24/24 02:40 Free T4 1.48 ng/dL (0.82-1.77) 05/24/24 02:40 Free T3 2.4 PG/ML (2.0-4.4) 05/24/24 02:40 Nasal MRSA (PCR) Not detected (Negative) 05/24/24 18:06 Digoxin 0.9 ng/mL (0.6-1.2) 05/25/24 16:38 Vitals Last Vital Signs Temp 97.7 F 05/28/24 07:16 Pulse 90 05/28/24 08:27 Resp 17 05/28/24 07:16 BP 135/77 05/28/24 07:16 Pulse Ox 96 05/28/24 07:16 O2 Del Method Room Air 05/28/24 07:16 O2 Flow Rate 8 05/24/24 01:20 Discharge Plan Discharge Patient Disposition: Home Condition: Stable Prescriptions: New polyethylene glycol 3350 [Miralax] 17 gram powder in packet 17 g PO DAILY PRN (Reason: constipation) 14 Days Qty: 14 0RF oxycodone 5 mg tablet 5 mg PO Q8H PRN (Reason: pain) 5 Days Qty: 14 0RF metoprolol tartrate 50 mg Tablet 25 mg PO BID@0900,2100 30 Days Qty: 60 0RF ciprofloxacin HCl 500 mg tablet 500 mg PO BID Qty: 10 0RF metronidazole 500 mg tablet 500 mg PO Q8H 5 Days Qty: 15 0RF Continued latanoprost 0.005 % drops 1 drp ophthalmic (eye) DAILY Entresto 97-103 mg tablet 0.5 tab PO BID Qty: 90 3RF nitroglycerin 0.4 mg tablet, sublingual 0.4 mg sublingual Q5M MDD 3 tabs PRN (Reason: Chest Pain) Qty: 25 3RF pantoprazole 40 mg tablet,delayed release (DR/EC) 40 mg PO QAM Qty: 90 1RF Eliquis 5 mg tablet 5 mg PO BID Qty: 90 3RF metoclopramide HCl [Reglan] 5 mg tablet 5 mg PO BID Qty: 60 1RF potassium chloride 20 mEq tablet,ER particles/crystals 20 meq PO BID Qty: 180 0RF allopurinol 300 mg tablet 300 mg PO DAILY Qty: 30 0RF atorvastatin 40 mg tablet 40 mg PO DAILY Rx Instructions: TAKE 1 TABLET EVERY DAY clopidogrel 75 mg tablet 75 mg PO DAILY Rx Instructions: TAKE 1 TABLET EVERY DAY (AT 6AM) digoxin 125 mcg (0.125 mg) tablet 125 mg PO DAILY Rx Instructions: TAKE 1 TABLET EVERY DAY ezetimibe 10 mg tablet 10 mg PO DAILY Rx Instructions: TAKE 1 TABLET EVERY DAY AT 6AM brimonidine 0.2 % drops 1 drp ophthalmic (eye) DAILY Discontinued meloxicam 15 mg tablet 15 mg PO DAILY Qty: 90 1RF spironolactone 25 mg tablet 12.5 mg PO QAM Rx Instructions: TAKE 1/2 TABLET EVERY MORNING metoprolol tartrate 50 mg tablet 50 mg PO DAILY Rx Instructions: TAKE 1 TABLET TWICE DAILY No Action furosemide 40 mg tablet 40 mg PO DAILY Qty: 90 0RF isosorbide mononitrate 30 mg tablet extended release 24 hr 15 mg PO QPM Qty: 45 3RF Rx Instructions: Take 1/2 daily Discharge Orders: Discharge Order (Routine); Ordered 05/28/24 Ordered By: Agustin Rodgers Referrals: Clifton Au MD [Physician] - 06/14/24 (We have notified your physician's clinic of the need for a follow-up appointment to be scheduled. If you have not heard from them within the next 2 business days, please call them directly. ) Freddie Trimble MD [Primary Care Provider] - 06/08/24 8:00 am () Discharge Diet: GI Soft Discharge Activity: Limit activity as instructed Patient Instructions: Ciprofloxacin (By mouth), Metoprolol (By mouth), Metronidazole (By mouth), Oxycodone, Rapid Release (By mouth), Polyethylene Glycol 3350 (By mouth), Ileus (DC), Exploratory Laparotomy (GEN), Opioid Safety Activity Restrictions/Additional Instructions: Internal medicine discharge instructions: Check your blood pressure daily at home and maintain a blood pressure diary. Goal blood pressure is less than 140/90 mmHg. Follow-up with a primary care provider within next 2 weeks for further adjustment of antihypertensive. Do not take your home dose of Imdur and Lasix for now. Restrict fluid intake to less than 1500 cc, salt intake to less than 2 g daily. Advised to check his weight daily at home. Is advised that weight today would be the dry weight and if body weight increases by around 5 pounds, patient is to take a dose of Lasix daily till body weight comes down to weight today. If not able to come down to dry body weight in 1 week, then is to call cardiology office for further recommendations. Patient was counseled in detail to take medications regularly as prescribed. General surgery instructions: ? Do not lift anything heavier than 10 pounds for the next 6 weeks. You can shower, let soap and water run over your wounds and then pat dry. Use your abdominal binder when you are out of bed, when you are in bed you can remove the binder. Return to the hospital if you have severe abdominal pain that is getting worse over time fever chills nausea and vomit. You do not need to take the oxycodone if your pain is minimal, but if you do please take the MiraLAX otherwise she will get constipated. Walk as much as possible this will speed up the recovery Discharge Attestations Time Spent in Discharge Care*: greater than 30 min Specific Discharge Activities: educating patient, discussing with pcp/other providers, discussing with oil field caser/social workers/dc planners, documenting/other paperwork and evaluating patient/reviewing data Status at Discharge: Cognitive status at discharge: cognitively intact, Behavioral status at discharge: cooperative and independent in ADL's, Functional status at discharge: independent ambulation, Overall status at discharge: patient is progressing back to baseline Quality Metrics Clinical Quality Measures [ No reported AMI, CVA or VTE this stay] Coding Level of Care Code 64963 Total time (in minutes) for Discharge: 60 Diagnoses Gallstone ileus K56.3 S/P laparotomy Z98.890
--- NOTE | 2024-05-28 15:27 | PC.NURSE ---
Discussed discharge medications, continued medications and discontinued medications with patient. Discussed post surgical activities and follow up appointments with patient. Medications delivered to bedside. Patient verbalized understanding.
== END 2024-05-28 13:52 | disposition home health service (06) | DRG 329 ==
LOC: ER 21:58 → OPS 22:14 → MEDSURG 22:52
PROVIDERS: Internal Medicine; Student in an Organized Health Care Education/Training Program; Admitting Provider Surgery; Emergency Provider Emergency Medicine; PCP Family Medicine; Visit Provider Surgery
PROC: (CPT 49000; principal; 2024-05-23 22:00)
PROC: (CPT 44120; 2024-05-23 22:00)
DX: K56.3 Gallstone ileus (principal); K55.019 Acute (reversible) ischemia of small intestine, extent unspecified; R65.10 Systemic inflammatory response syndrome (SIRS) of non-infectious origin without acute organ dysfunction; I13.0 Hypertensive heart and chronic kidney disease with heart failure and stage 1 through stage 4 chronic kidney disease, or unspecified chronic kidney disease; I50.42 Chronic combined systolic (congestive) and diastolic (congestive) heart failure; E87.0 Hyperosmolality and hypernatremia; E87.20 Acidosis, unspecified; N18.9 Chronic kidney disease, unspecified; Z79.02 Long term (current) use of antithrombotics/antiplatelets; Z79.01 Long term (current) use of anticoagulants; I25.5 Ischemic cardiomyopathy; N52.9 Male erectile dysfunction, unspecified; Z85.46 Personal history of malignant neoplasm of prostate; M19.90 Unspecified osteoarthritis, unspecified site; I48.91 Unspecified atrial fibrillation; I08.3 Combined rheumatic disorders of mitral, aortic and tricuspid valves; I25.10 Atherosclerotic heart disease of native coronary artery without angina pectoris; Z95.5 Presence of coronary angioplasty implant and graft; M10.9 Gout, unspecified; K21.9 Gastro-esophageal reflux disease without esophagitis; Z95.810 Presence of automatic (implantable) cardiac defibrillator; Z90.79 Acquired absence of other genital organ(s); Z96.612 Presence of left artificial shoulder joint; Z96.642 Presence of left artificial hip joint; Z87.891 Personal history of nicotine dependence; E86.0 Dehydration; R00.0 Tachycardia, unspecified; H40.9 Unspecified glaucoma; E78.5 Hyperlipidemia, unspecified; G89.29 Other chronic pain; Z97.4 Presence of external hearing-aid
CPT/HCPCS: 36415; 36416; 51702; 71045; 74177; 80053; 80061; 80162; 82607; 82746; 82962; 83036; 83540; 83550; 83605; 83690; 83735; 84100; 84439; 84443; 84481; 85025; 85610; 85730; 87040; 88307; 93306; 94664; 96365; 96375; 99285; C8924; C9250; J0131; J0330; J1100; J1644; J2270; J2371; J2405; J2470; J2543; J2704; J3010; J3372; J3490; J7030; J7040; J7042; J9999; P9045

== ENCOUNTER → 2024-06-08 17:22 | Outpatient (BNVA) | payer MEDICARE, SELFPAY | PROVIDERS: PCP Family Medicine | DX: R30.0 Dysuria (principal) | CPT/HCPCS: 81000; 87086 ==

== ENCOUNTER → 2024-06-14 10:01 | Outpatient (BNVA) | payer MEDICARE, SELFPAY | PROVIDERS: PCP Family Medicine; Visit Provider Surgery | DX: Z09 Encounter for follow-up examination after completed treatment for conditions other than malignant neoplasm (principal) | CPT/HCPCS: 99024 ==

== ENCOUNTER → 2024-06-28 08:43 | Outpatient (BNVA) | payer MEDICARE, SELFPAY | PROVIDERS: PCP Family Medicine; Visit Provider Nurse Practitioner Family | DX: I25.119 Atherosclerotic heart disease of native coronary artery with unspecified angina pectoris (principal); I25.5 Ischemic cardiomyopathy; E78.5 Hyperlipidemia, unspecified; I34.0 Nonrheumatic mitral (valve) insufficiency; I48.91 Unspecified atrial fibrillation; Z95.810 Presence of automatic (implantable) cardiac defibrillator; I13.0 Hypertensive heart and chronic kidney disease with heart failure and stage 1 through stage 4 chronic kidney disease, or unspecified chronic kidney disease; I50.23 Acute on chronic systolic (congestive) heart failure; N18.9 Chronic kidney disease, unspecified; Z79.01 Long term (current) use of anticoagulants | CPT/HCPCS: 36415; 80053; 83880; 85025; 99214 ==

== ENCOUNTER 2024-07-06 09:01 | Outpatient (CLI) | payer MEDICARE, SELFPAY ==
--- NOTE | 2024-07-06 | ECG_ITS ---
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 The perfusion scan will be documented separately. DATA: Baseline heart rate was 68 beats per minute. Baseline blood pressure was 117/75 millimeters of mercury. Target heart rate was 135. Maximum heart rate achieved was 84. which was 62% of the predicted target heart rate. Maximum blood pressure was 122/80 millimeters of mercury. The reason for ending the test was completion of the protocol. The patient did not experience any symptoms. ELECTROCARDIOGRAM: BASELINE: Atrial fibrillation. Left axis. Right bundle branch block EXERCISE: After Lexiscan injection, no ST-T changes suggestive of ischemic noted. No arrhythmia noted. CONCLUSION: Please note due to baseline abnormality of the EKG specificity and sensitivity of the EKG portion of LexiScan MIBI stress test will be low 1. EKG not suggestive of ischemia 2. Lexiscan injection unremarkable. 3. Perfusion scan will be documented separately Electronically Signed On 07-26-2024 22:30:53 CDT by ANDREAS SPRING [email or web address]
[2024-07-06 09:17] VITALS: BMI 23.4
--- NOTE | 2024-07-06 09:27 | NMCV_ITS ---
NM earlene perf SPECT r/s* [id number] Stanislav Wu Age: 84 Gender: M : 1940 Exam Date: 07/06/2024 10:20 Ordering Phys: Jazmine Bills NP Technologist: JEWELL Winslow Exam Location: [facility] Indications: cp STRESS TEST [facility] IMAGE PROTOCOL Rest/Stress 1 Lexiscan Day Radiopharmaceutical Dose (mCi) Administration Site Administered by Rest: Tc-99m 10.8 IV Kelsey Rivera, CREATIVE WRITER Sestamibi Stress:Tc-99m 32.3 IV Kelsey Mcneillgle, CREATIVE WRITER Sestamibi Rest: 06-Jul-2024 60 Discovery 630 Stress: 06-Jul-2024 30 Discovery 630 0.4mg Lexiscan. Images obtained in supine and prone position. SPECT RESULTS Technical Quality: Good Raw Data Analysis: Normal Image Corrections: No attenuation or motion correction applied Summed Stress Score: 25 Summed Rest Score: 25 Summed Difference Score: 1 PERFUSION FINDINGS Large area of fixed perfusion defects are noted in mid to distal and. And in for apical wall suggestive of old myocardial infarction in LAD territory without ischemia. FUNCTIONAL RESULTS (calculated via Gated SPECT) Stress Image LV EF (%): 33 Stress EDV (mL):181 TID: 1.07 Stress ESV (mL):122 FUNCTIONAL FINDINGS: Mid to distal anterior and apical wall akinesis IMPRESSIONS Large area of fixed perfusion defects are noted in mid to distal anterior wall .extending to infero apical wall suggestive of old myocardial infarction in LAD territory without ischemia. Sheila Kelly MD (Electronically Signed) Final Date: 07 Jul 2024 17:00 S
[2024-07-06] MEDS: regadenoson 0.4 Mg/5 ml Syringe IVP (10:47)
[2024-07-06 10:56] VITALS: BP 112/71; PULSE 73
== END 2024-07-06 09:02 | disposition home or self-care (01) ==
PROVIDERS: PCP Family Medicine; Visit Provider Nurse Practitioner Family
DX: R06.02 Shortness of breath (principal); R93.1 Abnormal findings on diagnostic imaging of heart and coronary circulation
CPT/HCPCS: 36415; 78452; 93017; 96374; A9500; J2785

== ENCOUNTER → 2024-07-29 10:19 | Outpatient (BNVA) | payer MEDICARE, SELFPAY | PROVIDERS: PCP Family Medicine; Visit Provider Nurse Practitioner Family | DX: I13.0 Hypertensive heart and chronic kidney disease with heart failure and stage 1 through stage 4 chronic kidney disease, or unspecified chronic kidney disease (principal); N18.9 Chronic kidney disease, unspecified; I50.23 Acute on chronic systolic (congestive) heart failure; I25.5 Ischemic cardiomyopathy; Z79.01 Long term (current) use of anticoagulants; Z98.61 Coronary angioplasty status; Z95.810 Presence of automatic (implantable) cardiac defibrillator; Z87.891 Personal history of nicotine dependence | CPT/HCPCS: 99214 ==

== ENCOUNTER → 2024-08-10 14:21 | Outpatient (BNVA) | payer MEDICARE, SELFPAY | PROVIDERS: PCP Family Medicine; Visit Provider Nurse Practitioner Family | DX: I11.0 Hypertensive heart disease with heart failure (principal); I50.42 Chronic combined systolic (congestive) and diastolic (congestive) heart failure; I25.5 Ischemic cardiomyopathy; Z79.01 Long term (current) use of anticoagulants; Z98.61 Coronary angioplasty status; Z95.810 Presence of automatic (implantable) cardiac defibrillator | CPT/HCPCS: 99214 ==

== ENCOUNTER 2024-08-12 11:28 | Outpatient (CLI) | payer MEDICARE, SELFPAY ==
[2024-08-12 12:20] LABS: Anion Gap 13.4 (5-19); Blood Urea Nitrogen 26 mg/dL (8-23); Calcium 9.5 mg/dL (8.5-10.5); Carbon Dioxide 27 mmol/L (22-29); Chloride 102 mmol/L (98-107); Glucose 93 mg/dL (65-115); Magnesium 2.1 mg/dL (1.7-2.3); NT Pro B Type Natriuretic Pept 3411 pg/mL (0-450); Osmolality Calculated 290 mOsm/kg (285-295); Potassium 4.4 mmol/L (3.5-5.1); Sodium 138 mmol/L (136-145)
== END 2024-08-12 11:29 | disposition home or self-care (01) ==
LOC: LAB 11:29
PROVIDERS: PCP Family Medicine; Visit Provider Nurse Practitioner Family
DX: I25.5 Ischemic cardiomyopathy (principal); I50.42 Chronic combined systolic (congestive) and diastolic (congestive) heart failure
CPT/HCPCS: 36415; 80048; 83735; 83880

== ENCOUNTER → 2024-09-13 12:39 | Outpatient (BNVA) | payer MEDICARE, SELFPAY | PROVIDERS: PCP Family Medicine; Visit Provider Surgery | DX: K82.3 Fistula of gallbladder (principal); K92.1 Melena | CPT/HCPCS: 99213 ==

== ENCOUNTER → 2024-09-27 14:33 | Outpatient (BNVA) | payer MEDICARE, SELFPAY | PROVIDERS: PCP Family Medicine; Visit Provider Internal Medicine Cardiovascular Disease | DX: I25.10 Atherosclerotic heart disease of native coronary artery without angina pectoris (principal); E78.5 Hyperlipidemia, unspecified; I25.5 Ischemic cardiomyopathy; I48.91 Unspecified atrial fibrillation; Z95.810 Presence of automatic (implantable) cardiac defibrillator; I11.0 Hypertensive heart disease with heart failure; I50.23 Acute on chronic systolic (congestive) heart failure; Z87.891 Personal history of nicotine dependence; Z79.01 Long term (current) use of anticoagulants | CPT/HCPCS: 99214 ==

== ENCOUNTER → 2024-10-18 12:47 | Outpatient (BNVA) | payer MEDICARE, SELFPAY | PROVIDERS: PCP Family Medicine; Visit Provider Surgery | DX: K92.1 Melena (principal); K82.3 Fistula of gallbladder | CPT/HCPCS: 99213 ==

== ENCOUNTER → 2024-11-22 10:05 | Outpatient (BNVA) | payer MEDICARE, SELFPAY | PROVIDERS: PCP Family Medicine; Visit Provider Internal Medicine Cardiovascular Disease | DX: Z45.018 Encounter for adjustment and management of other part of cardiac pacemaker (principal) | CPT/HCPCS: 93296 ==

== ENCOUNTER 2025-02-08 07:29 | Outpatient (CLI) | payer MEDICARE, SELFPAY ==
[2025-02-08] MEDS: iohexol 350 mg/mL 500 mL Btl (per mL) PO (08:55)
[2025-02-08 09:06] LABS: Blood Urea Nitrogen 17 mg/dL (8-23)
[2025-02-08] MEDS: iohexol 350 mg/mL 500 mL Btl (per mL) IV (09:13)
--- NOTE | 2025-02-08 09:15 | CT_ITS ---
WS: [id number] CT ABDOMEN AND PELVIS WITH CONTRAST HISTORY: post surgical pain, RIGHT lower quadrant pain. History of prostate cancer. TECHNIQUE: Imaging performed of the abdomen and pelvis with IV contrast. Single phase imaging of the abdomen. Coronal and sagittal reformats are submitted. All CT scans at [facility] use at least one of these dose optimization techniques: automated exposure control; mA and/or kV adjustment per patient size (includes targeted exams where dose is matched to clinical indication); or iterative reconstruction. IV CONTRAST: Omnipaque 350; 100 mL IV. Oral contrast: Yes. DLP: 416.13 mGy.cm COMPARISON: 05/23/2024, CT 08/12/2021 Lower thorax: Mild dependent changes at the lung bases. Cardiomegaly. Defibrillator and pacer wires are noted in the RIGHT heart. Small hiatal hernia. Liver/biliary system: Normal size liver. Tiny stable low-attenuation nodule in the RIGHT lobe. Normal portal vein. No intrahepatic duct dilatation. Gallbladder is absent. Gallbladder: Absent. Pancreas: Normal size pancreas and pancreatic duct. No adjacent inflammation. Spleen: Normal size spleen. No mass or infarct. Adrenal glands: Normal. Right kidney: Normal size kidney. There are a few too small to characterize cortical hypodensities. No renal obstruction. Left kidney: Normal size kidney. No obstruction. Long-term stability of well- circumscribed masses in the mid to lower LEFT kidney. 1 of these masses is of increased attenuation measuring 4.0 x 3.8 cm. Stable since at least 08/12/2021. Aorta: Mild atherosclerosis with no aneurysm. Lymphadenopathy: None. Free fluid: None. GI tract: No obstruction. History of partial sigmoid resection. No ischemic changes are identified. No obstruction. Moderate constipation throughout the colon. Prior appendectomy. Numerous sigmoid diverticula identified. There is moderate constipation but no obstruction. No evidence for acute diverticulitis at this time. Abdominal wall: Mild diastases rectus. Pelvis: No free fluid in the pelvis. Artifact from patient's LEFT hip arthroplasty obscuring detail in the pelvis. Urinary bladder is negative. Bones: Degenerative disc disease throughout the lumbar spine. Facet joint arthropathy. Prior LEFT hip arthroplasty. Extensive soft tissue heterotopic bone formation. CT/CT abdomen pelvis w con* [id number] IMPRESSION: 1. No acute abdominal or pelvic abnormalities are identified. 2. Partial resection small bowel. No obstruction. 3. Moderate diffuse constipation. Inspissated fecal material with diverticular disease in the sigmoid. No evidence for acute diverticulitis or obstruction. 4. Long-term stability masses in the LEFT kidney. Probably complex cyst. 5. Absent gallbladder. 6. Cardiomegaly.
== END 2025-02-08 07:30 | disposition home or self-care (01) ==
PROVIDERS: PCP Family Medicine; Visit Provider Family Medicine
DX: K82.3 Fistula of gallbladder (principal); Z85.46 Personal history of malignant neoplasm of prostate; I51.7 Cardiomegaly; K44.9 Diaphragmatic hernia without obstruction or gangrene; Z90.49 Acquired absence of other specified parts of digestive tract; N28.89 Other specified disorders of kidney and ureter; I70.0 Atherosclerosis of aorta; K59.00 Constipation, unspecified; Z90.89 Acquired absence of other organs; M62.08 Separation of muscle (nontraumatic), other site; M51.369 Other intervertebral disc degeneration, lumbar region without mention of lumbar back pain or lower extremity pain; M47.816 Spondylosis without myelopathy or radiculopathy, lumbar region
CPT/HCPCS: 74177; 82565; 84520

== ENCOUNTER → 2025-02-22 12:31 | Outpatient (BNVA) | payer MEDICARE, SELFPAY | PROVIDERS: PCP Family Medicine; Visit Provider Internal Medicine Cardiovascular Disease | DX: Z45.02 Encounter for adjustment and management of automatic implantable cardiac defibrillator (principal) | CPT/HCPCS: 93296 ==